=== PATIENT | female | born 1950 | race Caucasian/White ===

== ENCOUNTER 2022-11-30 11:04 | Outpatient (OUT) | payer MEDICARE, MEDICAID, SELFPAY ==
[2022-11-30 11:41] LABS: Bilirubin Urine NEGATIVE (NEGATIVE); Blood Urine MODERATE (NEGATIVE); Clarity Urine SLIGHTLY CLOUDY (CLEAR); Color Urine LT. YELLOW (YELLOW); Glucose Urine UA NEGATIVE (NEGATIVE); Ketones Urine NEGATIVE (NEGATIVE); Leukocyte Esterase Urine NEGATIVE (NEGATIVE); Nitrite Urine NEGATIVE (NEGATIVE); Protein Urine >=300 mg/dL (NEG/TRACE); Specific Gravity Urine 1.025 (1.005-1.025); Urobilinogen Urine 0.2 EU/dL (0.2-1.0)
[2022-11-30 12:16] LABS: Creatinine Urine Random 110.14 mg/dL (20.00-300.00); Protein Creatinine Ratio Urine 1.64; Total Protein Urine Random 180.1 mg/dL (<=11.9)
[2022-11-30 12:19] LABS: Anion Gap 12.2; BUN Creatinine Ratio 12.6; Calcium 9.2 mg/dL (8.5-10.1); Carbon Dioxide 28.7 mmol/L (21.0-32.0); Chloride 103 mmol/L (98-107); Estimated GFR (African America 31 (>=60); Estimated GFR (Non-African Ame 26 (>=60); Glucose 82 mg/dL (74-106); Potassium 4.9 mmol/L (3.5-5.1); Sodium 139 mmol/L (136-145)
== END 2022-11-30 11:05 ==
LOC: LAB 11:13
DX: N18.32 Chronic kidney disease, stage 3b (principal)
CPT/HCPCS: 36415; 80069; 81003; 82570; 84156

== ENCOUNTER 2022-12-13 15:05 | Outpatient (OUT) | payer MEDICARE, MEDICAID, SELFPAY ==
[2022-12-13 15:37] LABS: Albumin Level 3.2 g/dL (3.4-5.0); Anion Gap 9.9; Calcium 8.8 mg/dL (8.5-10.1); Carbon Dioxide 28.9 mmol/L (21.0-32.0); Chloride 102 mmol/L (98-107); Estimated GFR (African America 30 (>=60); Estimated GFR (Non-African Ame 25 (>=60); Phosphorus 3.7 mg/dL (2.6-4.7); Potassium 4.8 mmol/L (3.5-5.1); Sodium 136 mmol/L (136-145)
== END 2022-12-13 15:06 | disposition home or self-care (01) ==
LOC: LAB 15:05
DX: I12.9 Hypertensive chronic kidney disease with stage 1 through stage 4 chronic kidney disease, or unspecified chronic kidney disease (principal); N18.32 Chronic kidney disease, stage 3b
CPT/HCPCS: 36415; 80051; 82042; 82310; 82565; 84100; 84520

== ENCOUNTER 2023-03-21 14:45 | Outpatient (OUT) | payer MEDICARE, MEDICAID, SELFPAY ==
[2023-03-21 15:10] LABS: Creatinine Urine Random 30.49 mg/dL (20.00-300.00); Protein Creatinine Ratio Urine 1.88; Total Protein Urine Random 57.3 mg/dL (<=11.9)
[2023-03-21 15:13] LABS: Bilirubin Urine NEGATIVE (NEGATIVE); Blood Urine SMALL (NEGATIVE); Clarity Urine CLEAR (CLEAR); Color Urine LT. YELLOW (YELLOW); Glucose Urine UA NEGATIVE (NEGATIVE); Ketones Urine NEGATIVE (NEGATIVE); Leukocyte Esterase Urine NEGATIVE (NEGATIVE); Nitrite Urine NEGATIVE (NEGATIVE); Protein Urine 30 mg/dL (NEG/TRACE); Urobilinogen Urine 0.2 EU/dL (0.2-1.0)
[2023-03-21 15:48] LABS: Albumin Level 3.1 g/dL (3.4-5.0); Anion Gap 9.3; BUN Creatinine Ratio 13.4; Calcium 8.5 mg/dL (8.5-10.1); Carbon Dioxide 27.2 mmol/L (21.0-32.0); Chloride 101 mmol/L (98-107); Estimated GFR (African America 35 (>=60); Estimated GFR (Non-African Ame 29 (>=60); Glucose 106 mg/dL (74-106); Phosphorus 4.6 mg/dL (2.6-4.7); Potassium 5.5 mmol/L (3.5-5.1); Sodium 132 mmol/L (136-145)
== END 2023-03-21 14:46 | disposition home or self-care (01) ==
LOC: LAB 14:45
DX: I12.9 Hypertensive chronic kidney disease with stage 1 through stage 4 chronic kidney disease, or unspecified chronic kidney disease (principal); N18.32 Chronic kidney disease, stage 3b
CPT/HCPCS: 36415; 80069; 81003; 82570; 84156

== ENCOUNTER 2023-06-07 11:43 | Outpatient (OUT) | payer MEDICARE, MEDICAID, SELFPAY ==
[2023-06-07 12:47] LABS: Albumin Level 3.1 g/dL (3.4-5.0); Anion Gap 10.1; BUN Creatinine Ratio 17.5; Calcium 9.4 mg/dL (8.5-10.1); Carbon Dioxide 27.6 mmol/L (21.0-32.0); Chloride 106 mmol/L (98-107); Estimated GFR (African America 35 (>=60); Estimated GFR (Non-African Ame 29 (>=60); Glucose 101 mg/dL (74-106); Magnesium 1.9 mg/dL (1.8-2.4); Phosphorus 3.6 mg/dL (2.6-4.7); Potassium 4.7 mmol/L (3.5-5.1); Sodium 139 mmol/L (136-145)
== END 2023-06-07 11:44 | disposition home or self-care (01) ==
LOC: LAB 11:43
DX: I12.9 Hypertensive chronic kidney disease with stage 1 through stage 4 chronic kidney disease, or unspecified chronic kidney disease (principal)
CPT/HCPCS: 36415; 80069; 83735

== ENCOUNTER 2023-10-18 15:00 | Outpatient (OUT) | payer MEDICARE, MEDICAID, SELFPAY ==
[2023-10-18 15:41] LABS: Creatinine Urine Random 16.28 mg/dL (20.00-300.00); Protein Creatinine Ratio Urine 3.56; Sodium Urine Random 42 mmol/L (30-90); Total Protein Urine Random 57.9 mg/dL (<=11.9)
[2023-10-18 15:43] LABS: Albumin Level 3.1 g/dL (3.4-5.0); Anion Gap 12.1; BUN Creatinine Ratio 14.7; Calcium 8.8 mg/dL (8.5-10.1); Carbon Dioxide 27.9 mmol/L (21.0-32.0); Chloride 102 mmol/L (98-107); Estimated GFR (African America 32 (>=60); Estimated GFR (Non-African Ame 27 (>=60); Glucose 116 mg/dL (74-106); Magnesium 1.9 mg/dL (1.8-2.4); Phosphorus 4.6 mg/dL (2.6-4.7); Sodium 137 mmol/L (136-145)
== END 2023-10-18 15:01 | disposition home or self-care (01) ==
LOC: LAB 15:00
DX: I72.9 Aneurysm of unspecified site (principal)
CPT/HCPCS: 36415; 80069; 82570; 83735; 84156; 84300

== ENCOUNTER 2024-02-10 12:29 | Outpatient (OUT) | payer MEDICARE, MEDICAID, SELFPAY ==
--- OUTSIDE RECORDS SUMMARY | 2024-02-10 12:53 | XMS_ITS | CCD ---
Author Organization [facility] Inform ion Partnership [facility] Care Team Providers Care Parts Clerk Name Role Phone Jaclyn Son MD Primary Care Provider EUGENE MICHELLE Referring Unavailable JACLYN OSN Primary Care Unavailable HUY, RONER R Primary Care Unavailable EUGENE MICHELLE Referring Unavailable HUY, JACLYN R Primary Care Unavailable EUGENE MICHELLE Referring Unavailable HUY, JACLYN R Primary Care Unavailable EUGENE MICHELLE Referring Unavailable HUY, JACLYN R Primary Care Unavailable EUGENE MICHELLE Referring Unavailable EUGENE MICHELLE Referring Unavailable BROWN, CHRISTOPHER R Primary Care Unavailable HUY, CHRISTOPHER R Primary Care Unavailable EUGENE MICHELLE Referring Unavailable EUGENE MICHELLE Consulting Unavailable ISAIAS LOWRY Admitting Unavailable JACLYN SON R Primary Care Unavailable AURELIO SALDANA Attending Unavailable Jaclyn SON Primary Care Physician [phone] Darryl Soto DO Darryl Soto Attending Provider MD Tony Son Primary Care Provider [phone] MD Chance Beavers Attending Provider MD Tony Son Primary Care Provider [phone] MD Chance Beavers Attending Provider Chance Beavers Admitting Unavailable Chance Beavers Attending Unavailable Tony Son R Primary Care Unavailable Chance Beavers Admitting Unavailable Chance Beavers Attending Unavailable Tony Son R Primary Care Unavailable Huy, Tony R Primary Care Unavailable Darryl Soto Admitting Unavailable Darryl Soto Attending Unavailable Chance Beavers Admitting Unavailable Ditty, Chance J Attending Unavailable Tony Son Primary Care Unavailable Radha Porter Unavailable AKSTEVIE, CATHY Admitting Unavailable MILI ROONEYIL Attending Unavailable DR JASMIN AMEZCUA Primary Care Unavailable [facility] Consulting Unavailable CATHY ROONEY Consulting Unavailable MIS, DOCTOR Admitting Unavailable MISC, DOCTOR Attending Unavailable DR JASMIN AMEZCUA Primary Care Unavailable [facility] Consulting Unavailable Shannan Alfaro Unavailable Jaclyn SON Attending Unavailable HUY, Roner Attending Unavailable HUY, Jacobyopher Attending Unavailable HUY, Christopher Attending Unavailable HUY, Christopher Attending Unavailable HUY, Christopher Attending Unavailable HUY, Christopher Attending Unavailable HUY Christopher Admitting Unavailable Allergies Allergy Classification Reported Allergen(s) Allergy Type Date of Onset Reaction(s) Facility [facility] (3 sources) [facility]; Translations: [codeine] Drug Allergy 1 Chest pain (finding) [facility] (1 source) Codeine Drug Allergy 1 [facility] Repository Medications Current Medications Medication Drug Class(es) Dates Sig (Normalized) Sig (Original) Acetaminophen (1 source) Start: 01-08-2021 acetaminophen (TYLENOL) tablet 650 mg acetaminophen 325 mg / HYDROcodone bitartrate 5 mg oral tablet (2 sources) Opioid Agonist Start: 01-13-2021 End: 01-20-2021 take 1 tablet by mouth every six hours as needed for pain HYDROcodone-acetami nophen (NORCO) 5-325 MG per tablet Indications: Closed hip fracture, right, initial encounter (HCC) Take 1 tablet by mouth every 6 hours as needed for Pain for up to 7 days. 30 tablet 0 01/13/2021 01/20/2021 Active Start: 01-10-2021 HYDROcodone-ac etaminophen (NORCO) 5-325 MG per tablet 1 tablet acetaminophen 325 mg / oxyCODONE hydrochloride 5 mg oral tablet (1 source) Opioid Agonist Start: 01-09-2021 oxyCODONE-acetaminophen (PERCOCET) 5-325 MG per tablet 1 tablet [id number] 200 actuat albuterol 0.09 mg/actuat metered dose inhaler (14 sources) beta2-Adrene rgic Agonist Start: 02-17-2021 take 2 puff(s) by inhalation every six hours for wheezing Pro-Air HFA CFC free 90 mcg/inh MDI 2 puff(s), Inhalation, q6hr for wheezing, 8.5 gram, Refill(s) 1, [facility], 152, cm, 02/17/21 15:40:00 EDT, Height/Length Dosing, 43.8, kg, 02/17/21 15:40:00 EDT, Weight Dosing Start Date: 02/17/21 Status: Ordered aluminum hydroxide 40 mg/ml / magnesium hydroxide 40 mg/ml / simethicone 4 mg/ml oral suspension (7 sources) Start: 01-14-2021 take 30 mL by mouth every six hours as needed aluminum & magnesium hydroxide-simethicone (MAALOX) 200-200-20 MG/5ML SUSP suspension Take 30 mLs by mouth every 6 hours as needed for Indigestion 1 Bottle 0 01/14/2021 Active Start: 01-10-2021 aluminum & mag nesium hydroxide-simethicone (MAALOX) 200-200-20 MG/5ML suspension 30 mL amoxicillin 500 mg oral capsule (3 sources) Penicillin-class Antibacterial Start: 10-22-2022 take 1 capsule by mouth every eight hours Amoxicillin 500 MG 1 capsule Orally three times a day for 10 day(s) October, Active Start: 06-01-2022 take 1 tablet by alejandra every twelve hours Amoxicillin 875 MG 1 tablet Orally every 12 hrs for 7 days May, Active amoxicillin 875 mg / clavulanate 125 mg oral tablet (1 source) Penicillin-class Antibacterial Start: 02-25-2023 take 1 tablet by mouth every twelve hours Amoxicillin-Pot Clavulanate 875-125 MG 1 tablet Orally every 12 hrs for 10 day(s) Feb, Active Anoro Ellipta 62.5 mcg-25 mcg inhalation powder (16 sources) Start: 02-21-2023 Anoro Ellipta 62.5 mcg-25 mcg inhalation powder 1 inh, Inhalation, Daily, 1 EA, Refill(s) 12, [facility], 154, cm, 08/15/23 13:10:00 EDT, Height/Length Dosing, 39.9, kg, 01/25/23 13:10:00 EDT, Weight Dosing Start Date: 02/21/23 Status: Ordered Start: 04-13-2022 Anoro Ellipta 62.5 mcg-25 mcg inhalation powder 1 inh, Inhalation, Daily, 1 EA, Refill(s) 12, [facility], 154.9, cm, 01/21/22 13:26:00 EDT, Height/Length Dosing, 42.5, kg, 01/21/22 13:26:00 EDT, Weight Dosing Start Date: 04/13/22 Status: Ordered Start: 01-21-2022 Anoro Ellipta 62.5 mcg-25 mcg inhalation powder 1 inh, Inhalation, Daily, 1 EA, Refill(s) 12, other reason (Rx) Start Date: 01/21/22 Status: Ordered Start: 05-08-2021 End: 11-04-2021 Anoro Ellipta 62.5 mcg-25 mc g inhalation powder 1 inh, Inhalation, Daily for 30 day(s), 30 blister(s), Refill(s) 5, [facility] #[facility], 154.9, cm, 05/04/21 12:55:00 EST, Height/Length Dosing, 42.8, kg, 05/04/21 12:55:00 EST, Weight Dosing Start Date: 05/08/21 Stop Date: 11/04/21 Status: Ordered Anoro Ellipta 62.5-25 MCG/INH (3 sources) take 1 puff(s) by inhalation once daily Anoro Ellipta 62.5-25 MCG/INH 1 puff Inhalation Once a day Active aspirin 81 mg delayed release oral tablet (20 sources) Platelet Aggregation Inhibitor, Nonsteroidal Anti-inflammatory Drug Start: 2 take 1 tablet by mouth once daily aspirin 81 mg Oral EC Tab 81 mg = 1 tab(s), Oral, Daily, # 90 tab(s), Refills(s) 3, other reason (Rx) Start Date: 01/21/22 Status: Ordered Start: 01-29-2021 take 325 mg by mouth once carmelita y Aspirin Active 325 MG PO Daily October 2nd, 2022 11:00pm atorvastatin 20 mg oral tablet (6 sources) HMG-CoA Reductase Inhibitor Start: 06-03-2020 take 1 tablet by mouth once daily atorvastatin (LIPITOR) 20 MG tablet Take 20 mg by mouth nightly 0 06/03/2020 Active 60 actuat budesonide 0.16 mg/actuat / formoterol fumarate 0.0045 mg/actuat metered dose inhaler (7 sources) Corticosteroid, beta2-Adrenergic Agonist Start: 01-14-2021 take 2 puff(s) by inhalation twice daily budesonide-formote rol (SYMBICORT) 160-4.5 MCG/ACT AERO Inhale 2 puffs into the lungs 2 times daily 1 Inhaler 3 01/14/2021 Active Start: 01-12-2021 budesonide-for moterol (SYMBICORT) 160-4.5 MCG/ACT inhaler 2 puff chlorhexidine gluconate 1.2 mg/ml mouthwash (1 source) Start: 06-01-2022 take 10 mL by mouth twice daily Peridex 0.12 % gargle 10 ml Mouth/Throat twice daily May, Active docusate sodium 100 mg oral capsule (7 sources) Start: 01-12-2021 take 1 capsule by mouth once daily docusate sodium (COLACE, DULCOLAX) 100 MG CAPS Take 100 mg by mouth daily 30 capsule 0 01/14/2021 Active docusate sodium 50 mg / sennosides, senior care 8.6 mg oral tablet (7 sources) Start: 01-09-2021 take 1 tablet by mouth twice daily sennosides-docusat e sodium (SENOKOT-S) 8.6-50 MG tablet Take 1 tablet by mouth 2 times daily 60 tablet 0 01/14/2021 Active 0.3 ml enoxaparin sodium 100 mg/ml prefilled syringe (7 sources) Low Molecular Weight Heparin Start: 01-10-2021 enoxaparin (LOVENOX) 30 MG/0.3ML injection Inject 0.3 mLs into the skin daily 10 mL 0 01/14/2021 Active famotidine 40 mg oral tablet (20 sources) Histamine-2 Receptor Antagonist Start: 08-02-2023 take 1 tablet by mouth once daily at bedtime famotidine 40 mg Tab 40 mg = 1 tab(s), Oral, Once a day (at bedtime), # 90 tab(s), Refills(s) 3, Pharmacy: [facility], 154, cm, 08/02/23 10:44:00 EST, Height/Length Dosing, 41.3, kg, 08/02/23 10:44:00 EST, Weight Dosing Start Date: 08/02/23 Status: Ordered Start: 07-23-2021 take 1 tablet by alejandra once daily at bedtime famotidine 40 mg Tab 40 mg = 1 tab(s), Oral, Once a day (at bedtime), # 90 tab(s), Refills(s) 1, Pharmacy: [facility], 154, cm, 08/30/22 14:11:00 EDT, Height/Length Dosing, 42.7, kg, 08/30/22 14:11:00 EDT, Weight Dosing Start Date: 09/23/22 Status: Ordered fluticasone propionate 0.05 mg/actuat metered dose nasal spray (1 source) Corticosteroid Start: 02-25-2023 take 2 spray(s) nasal route once daily Fluticasone Propionate 50 MCG/ACT 2 sprays Nasally Once a day for 14 day(s) Feb, Active 12 hr guaiFENesin 600 mg extended release oral tablet (7 sources) Start: 01-10-2021 take 1 tablet by mouth twice daily guaiFENesin (MUCINEX) 600 MG extended release tablet Take 1 tablet by mouth 2 times daily 60 tablet 0 01/14/2021 Active lactobacillus rhamnosus gg [id number] unt oral capsule (7 sources) Start: 01-14-2021 take 1 capsule by mouth once daily at breakfast lactobacillus (CULTURELLE) capsule Take 1 capsule by mouth daily (with breakfast) 30 capsule 0 01/14/2021 Active Start: 01-13-2021 lactobacillus (CULTURELLE) capsule 1 capsule levalbuterol 0.417 mg/ml inhalation solution (10 sources) beta2-Adrenergic Agonist Start: 01-14-2021 leval buterol (XOPENEX) 1.25 MG/3ML nebulizer solution Take 3 mLs by nebulization every 4 hours as needed for Wheezing 30 mL 0 01/14/2021 Active Start: 01-09-2021 End: 01-10-2021 levalbuterol (XOPENEX) nebul izer solution 1.25 mg Start: 01-09-2021 levalbuterol ( XOPENEX) 1.25 MG/3ML nebulizer solution levoFLOXacin 250 mg oral tablet (2 sources) Quinolone Antimicrobial Start: 01-14-2021 End: 01-19-2021 take 1 tablet by mouth once daily levoFLOXacin (LEVAQUIN) 250 MG tablet Take 1 tablet by mouth daily for 5 days 5 tablet 0 01/14/2021 01/19/2021 Active Start: 01-12-2021 levoFLOXacin ( LEVAQUIN) 250 MG/50ML infusion 250 mg loratadine 10 mg oral tablet (20 sources) Start: 03-12-2021 take 1 tablet by mouth once daily loratadine 10 mg Tab 10 mg = 1 tab(s), Oral, Daily, # 30 tab(s), Refills(s) 5, Pharmacy: [facility], 154.9, cm, 03/12/21 10:12:00 EDT, Height/Length Dosing, 42, kg, 03/12/21 10:12:00 EDT, Weight Dosing Start Date: 03/12/21 Status: Ordered magnesium hydroxide 80 mg/ml oral suspension (1 source) Start: 01-09-2021 take 30 mL by mouth once daily as needed for constipation 30 mL, Oral, DAILY PRN, Constipation, Starting on Tue01/09/21 at 1943 First line therapy for constipation. Post-op meclizine hydrochloride 12.5 mg oral tablet (17 sources) Antiemetic Start: 07-29-2022 meclizine 12.5 mg Tab 12.5 mg = 1 tab(s), Oral, TID, PRN for dizziness, Use upto three times daily for dizziness as needed, # 30 tab(s), Refills(s) 2, Pharmacy: [facility], 154.9, cm, 07/29/22 13:20:00 EST, Height/Length Dosing, 42.6, kg, 07/29/22 13:20:00 EST, Weight Dosing Start Date: 07/29/22 Status: Ordered Start: 03-15-2022 take 12.5 mg by mout h three times daily Meclizine Active 12.5 MG PO Three times daily March 14, 2022 11:00pm Start: 10-27-2021 meclizine 12.5 mg Tab 12.5 mg = 1 tab(s), Oral, TID, PRN for dizziness, Use upto three times daily for dizziness as needed, # 30 tab(s), Refills(s) 2, Pharmacy: [facility], 154.9, cm, 10/27/21 12:15:00 EDT, Height/Length Dosing, 41.5, kg, 10/27/21 12:15:00... Start Date: 10/27/21 Status: Ordered 2 ml metoclopramide 5 mg/ml prefilled syringe (1 source) Dopamine-2 Receptor Antagonist Start: 01-10-2021 metoclopramide (REGLAN) injection 5 mg 1 ml morphine sulfate 2 mg/ml cartridge (3 sources) Opioid Agonist Start: 01-08-2021 take 2 mg by mouth every four hours as needed for pain 2 mg, Intravenous, EVERY 4 HOURS PRN, Pain Moderate (4-6), Pain Severe (7-10), Starting on Luz Elena 01/08/21 at 2124 If oral and IV narcotics ordered, use oral first and only use IV if oral is ineffective or cannot take oral. Do Not give oral and IV within 1 hour of each other unless specifically ordered. Start: 01-08-2021 End: 01-08-2021 morphine sulfate (PF) inject ion 4 mg Start: 01-08-2021 End: 01-08-2021 morphine sulfate (PF) inject ion 4 mg Multivitamins and Minerals (16 sources) Start: 02-23-2021 take 1 tablet by mouth once daily Multivitamins and Minerals 1 tab, Oral, Daily, Refill(s) 0 Start Date: 02/23/21 Status: Ordered naproxen sodium 550 mg oral tablet (1 source) Nonsteroidal Anti-inflammatory Drug Start: 06-01-2022 take 1 tablet by mouth every twelve hours at mealtime as needed Naproxen Sodium 550 MG 1 tablet with food or milk as needed Orally every 12 hrs for 7 days May, Active ondansetron 4 mg disintegrating oral tablet (7 sources) Serotonin-3 Receptor Antagonist Start: 01-14-2021 take 1 tablet by mouth every eight hours as needed for nausea ondansetron (ZOFRAN-ODT) 4 MG disintegrating tablet Take 1 tablet by mouth every 8 hours as needed for Nausea or Vomiting 30 tablet 0 01/14/2021 Active Start: 01-08-2021 End: 01-08-2021 ondansetron (ZOFRAN) injecti on 4 mg ondansetron (ZOFRAN-ODT) disintegrating tablet 4 mg (1 source) Start: 01-09-2021 ondansetron (ZOFRAN-ODT) disintegrating tablet 4 mg pantoprazole 40 mg delayed release oral tablet (8 sources) Proton Pump Inhibitor Start: 01-15-2021 take 1 tablet by mouth once daily before breakfast pantoprazole (PROTONIX) 40 MG tablet Take 1 tablet by mouth every morning (before breakfast) 30 tablet 3 01/15/2021 Active Start: 01-15-2021 take 1 tablet by alejandra th once daily before breakfast pantoprazole (PROTONIX) 40 MG tablet Take 1 tablet by mouth every morning (before breakfast) 30 tablet 3 01/15/2021 Active Start: 01-10-2021 pantoprazole ( PROTONIX) tablet 40 mg patiromer 8400 mg powder for oral suspension (5 sources) Potassium Binder Start: 04-06-2023 Veltassa 8.4 g oral powder for reconstitution Oral, 0 Refill(s), Refills(s) 0 Start Date: 04/06/23 Status: Ordered take 1 dose by mouth once daily Veltassa 8.4 GM 1 packet dissolved in water. Take other medications at least 3 hours before or 3 hours after this medication Orally Once a day Active polyethylene glycol 3350 98933 mg powder for oral solution (4 sources) Osmotic Laxative Start: 01-08-2021 End: 02-13-2021 take 17 g by mouth once daily as needed for constipation polyethylene glycol (GLYCOLAX) 17 g packet Take 17 g by mouth daily as needed for Constipation 527 g 1 01/14/2021 02/13/2021 Active Pro-Air HFA CFC free 90 mcg/inh MDI (2 sources) Start: 02-17-2021 take 2 puff(s) by inhalation every six hours for wheezing Pro-Air HFA CFC free 90 mcg/inh MDI 2 puff(s), Inhalation, q6hr for wheezing, 8.5 gram, Refill(s) 1, [facility], 152, cm, 02/17/21 15:40:00 EDT, Height/Length Dosing, 43.8, kg, 02/17/21 15:40:00 EDT, Weight Dosing Start Date: 02/17/21 Status: Ordered promethazine hydrochloride 25 mg oral tablet (2 sources) Phenothiazine Start: 01-09-2021 promethazine (PHENERGAN) tablet 25 mg Start: 01-08-2021 End: 01-08-2021 promethazine (PHENERGAN) inj ection 12.5 mg sodium chloride 1000 mg oral tablet (20 sources) Start: 03-15-2022 take 1000 mg by mouth twice daily Sodium Chloride Active 1000 MG PO Twice daily March 14, 2022 11:00pm Start: 02-23-2021 take 1 tablet by mouth once da akhil Sodium Chloride 1 g oral tablet 1 tab, Oral, Daily, Refills(s) 0 Start Date: 02/23/21 Status: Ordered Start: 02-23-2021 take 1 tablet by mouth once da akhil Sodium Chloride 1 g oral tablet 1 tab, Oral, Daily, Refills(s) 0 Start Date: 02/23/21 Status: Ordered Start: 01-12-2021 sodium chlorid e (OCEAN, BABY AYR) 0.65 % nasal spray 2 sprays by Nasal route 4 times daily 1 Bottle 0 01/14/2021 Active Start: 01-08-2021 End: 01-12-2021 0.9 % sodium chloride infusi on Start: 01-08-2021 take 1 dose intraven ously twice daily 5-40 mL, Intravenous, EVERY 12 HOURS SCHEDULED (2 times per day), First dose on Tue01/09/21 at 2100 For Line Patency: Peripheral IV = 5 mL; Midline or Central Line = 10 mL/lumen. If following IV push medication, administer flush at same rate as the IV push. Flush volume is determined by type of infusion therapy being given. For non-viscous solutions use: Peripheral IV = 5 mL Midline or Central Line = 10 mL/lumen For viscous solutions (i.e. blood components, parenteral nutrition, contrast media, or after obtaining blood sample) use: Peripheral IV = 10 mL Midline or Central Line = 20 mL/lumen Post-op Start: 01-08-2021 take 5-40 mL intravenously onc e 5-40 mL, Intravenous, PRN, Line Care, Starting on Tue01/09/21 at 1943 After every IV line use Post-op Start: 01-08-2021 take 25 mL intraveno usly every hour as needed 25 mL, Intravenous, at 100 mL/hr, PRN, If patient receiving piggyback infusions without ordered maintenance IV fluids or with frequent/long duration piggyback infusions, Starting on Tue01/09/21 at 1943 Administer at the same rate as the piggyback being infused. Post-op sodium zirconium cyclosilicate 96421 mg powder for oral suspension (3 sources) Start: 08-02-2023 Lokelma 10 g o ral powder for reconstitution See Instructions, 10 gm every 3 days, # 30 EA, Refills(s) 5 Start Date: 08/02/23 Status: Ordered 7 actuat umeclidinium 0.0625 mg/actuat / vilanterol 0.025 mg/actuat dry powder inhaler (4 sources) Anticholinergic, beta2-Adrenergic Agonist Start: 03-15-2022 Umeclidinium-Vilante rol (Anoro Ellipta) 62.5-25 mcg/actuation blister with device Active 1 INH INHALATION Daily March 14, 2022 11:00pm take 1 puff(s) by inhalation onc e daily Anoro Ellipta 62.5-25 MCG/INH 1 puff Inhalation Once a day Active Ventolin HFA 90 mcg/inh Aerosol (6 sources) Start: 05-08-2021 take 1 puff(s) by inhalation every four hours for wheezing Ventolin HFA 90 mcg/inh Aerosol 1 puff(s), Inhalation, q4hr for wheezing, 18 gram, Refill(s) 5, [facility] #[facility], 154.9, cm, 05/04/21 12:55:00 EST, Height/Length Dosing, 42.8, kg, 05/04/21 12:55:00 EST, Weight Dosing Start Date: 05/08/21 Status: Ordered Completed/Discontinued Medications Medication Drug Class(es) Dates Sig (Normalized) Sig (Original) ceFAZolin 1000 mg injection (2 sources) Cephalosporin Antibacterial Start: 01-09-2021 End: 01-09-2021 ceFAZolin (ANCEF) injection 2,000 mg Start: 01-09-2021 End: 01-09-2021 ceFAZolin (ANCEF) 2-3 GM-%(5 0ML) IVPB (duplex) ceFAZolin (ANCEF) 1,000 mg i n dextrose 5 % 50 mL IVPB (mini-bag) (1 source) Start: 01-10-2021 End: 01-10-2021 ceFAZolin (ANCEF) 1,000 mg i n dextrose 5 % 50 mL IVPB (mini-bag) ceFAZolin (ANCEF) 1,000 mg i n sterile water 10 mL IV syringe (1 source) Start: 01-10-2021 End: 01-10-2021 1,000 mg, Intravenous, EVERY 8 HOURS, 3 doses, First dose on 01/10/21 at 0100, Last dose on 01/10/21 at 1700 Administer over 5 mins. Reconstitute 1 g vial with 2.5 mL Sterile Water. Withdraw 3.1 mL from vial and further dilute with 6.9 mL Sterile Water (final administration volume=10 mL). Post-op ferrous sulfate 325 mg oral tablet (1 source) Start: 01-13-2021 End: 01-14-2021 ferrous sulfate (IRON 325) t ablet 325 mg Problems Active Problems Problem Classification Problem Date Documented Da te Episodic/Chronic Anal and rectal conditions (1 source) Rectal polyp; Translations: [Rectal polyp] Onset: 09-18-2021 Episodic Bacterial infection; unspecified site (1 source) Other specified bacterial agents as the cause of diseases classified elsewhere Episodic Chronic kidney disease (20 sources) Chronic kidney disease stage 3B ; Translations: [Chronic kidney disease, stage 3b] Onset: 10-26-2021 Chronic Comment on above: Added per outpatient CDI policy Chronic kidney disease (1 source) Chronic kidney disease; Translations: [CHRONIC KIDNEY DISEASE STAGE 3B] Onset: 09-10-2022 Chronic obstructive pulmonary disease and bronchiectasis (20 sources) Asthma-chronic obstructive pulmonary disease overlap syndrome; Translations: [Chronic obstructive lung disease] Onset: 10-26-2021 02-17-2021 Chronic Conditions associated with dizziness or vertigo (18 sources) Benign paroxysmal positional vertigo; Translations: [Benign paroxysmal vertigo, unspecified ear] Onset: 10-27-2021 Episodic Deficiency and other anemia (20 sources) Anemia of chronic disease 04-21-2021 Chronic Deficiency and other anemia (3 sources) Anemia; Translations: [Anemia in other chronic diseases classified elsewhere] Onset: 08-28-2022 Chronic Deficiency and other anemia (1 source) Anemia; Translations: [Anemia, unspecified] Episodic Disorders of lipid metabolism (7 sources) Mixed hyperlipidemia; Translations: [Mixed hyperlipidemia] Onset: 01-20-2022 05-30-2020 Chronic Disorders of teeth and jaw (1 source) Periapical abscess without sinus Episodic E Codes: Fall (1 source) Accidental fall ; Translations: [Unspecified fall, initial encounter] Episodic Essential hypertension (14 sources) Benign essential hypertension; Translations: [Essential hypertension] Onset: 10-26-2021 03-30-2020 Chronic Fluid and electrolyte disorders (20 sources) Hyponatremia; Translations: [Hypo-osmolality and or hyponatremia] Onset: 11-10-2021 02-15-2021 Episodic Fracture of neck of femur (hip) (15 sources) Closed fracture of hip; Translations: [Fracture of unspecified part of neck of right femur, initial encounter for closed fracture] Onset: 01-08-2021 Episodic Hypertension with complications and secondary hypertension (4 sources) Hypertensive chronic kidney disease with stage 1 through stage 4 chronic kidney disease, or unspecified chronic kidney disease; Translations: [HTN CKD W/STAGE 1-4 CKD/UNS CKD] Onset: 09-08-2022 Chronic Nausea and vomiting (7 sources) Nausea and vomiting; Translations: [Nausea with vomiting, unspecified] Onset: 10-26-2021 Episodic Other and unspecified benign neoplasm (8 sources) Polyp of colon; Translations: [Polyp of colon] Onset: 09-18-2021 Episodic Other and unspecified benign neoplasm (16 sources) Hyperplastic polyp of large intestine 09-18-2021 Episodic Other and unspecified benign neoplasm (16 sources) Polyp of ascending colon 09-11-2021 Episodic Other and unspecified benign neoplasm (5 sources) History of polyp of colon; Translations: [Personal history of colonic polyps] Episodic Other and unspecified benign neoplasm (1 source) Benign neoplasm of colon, unspecified; Translations: [Benign neoplasm of colon, unspecified] Onset: 03-15-2022 Episodic Other diseases of kidney and ureters (1 source) Renal impairment; Translations: [Disorder of kidney and ureter, unspecified] Episodic Other gastrointestinal disorders (20 sources) Heartburn; Translations: [Heartburn] Onset: 10-26-2021 07-23-2021 Episodic Other gastrointestinal disorders (16 sources) Hyperplastic polyp of intestine 09-18-2021 Episodic Other nutritional; endocrine; and metabolic disorders (18 sources) Body mass index less than 20; Translations: [Body mass index (BMI) 19.9 or less, adult] Onset: 01-23-2023 01-29-2021 Episodic Other screening for suspected conditions (not mental disorders or infectious disease) (3 sources) Stool DNA-based colorectal cancer screening positive; Translations: [Procedure carried out on subject] Onset: 08-02-2022 08-18-2021 Episodic Other upper respiratory disease (9 sources) Allergic rhinitis due to pollen; Translations: [Allergic rhinitis due to pollen] Onset: 08-30-2022 03-12-2021 Chronic Other upper respiratory infections (4 sources) Acute pharyngitis, unspecified; Translations: [Acute pharyngitis due to other specified organisms] Episodic Residual codes; unclassified (2 sources) Refused procedure - parent's wish; Translations: [Procedure and treatment not carried out because of patient's decision for unspecified reasons] Onset: 07-30-2023 Episodic Substance-related disorders (20 sources) Nicotine dependence; Translations: [Nicotine dependence, cigarettes, uncomplicated] Onset: 10-26-2021 05-30-2020 Chronic Unclassified (1 source) Encounter for preprocedural laboratory examination; Translations: [Encounter for preprocedural laboratory examination] Onset: 03-11-2022 Unclassified (10 sources) Mammogram declined 07-29-2022 Past or Other Problems Problem Classification Problem Date Documented Da te Episodic/Chronic Other and unspecified benign neoplasm (1 source) Polyp of colon Onset: 12-21-2021 Resolved: 12-21-2021 Episodic Unclassified (17 sources) Patient encounter status 04-01-2020 Results Test Name Value Interpretation Reference Range Facil ity Consultation Noteon 10-27-19 Consultation Note [id number]#1.00TIFF Normal [facility] Patient Correspondenceon Patient Correspondence [id number]#[id number] Normal [facility] Ambulatory Visit Summaryon 0 08-02-2023 Ambulatory Visit Summary LECNHO CANDELARIO :1950 Visit Date:08/02/2023 Ambulatory Visit Instructions Your Diagnosis Annual visit for general adult medical examination without abnormal findings COPD with asthma Chronic kidney disease, stage 3b Cigarette nicotine dependence Screening mammography declined BMI less than 19,adult Your Care Team Attending Physician - HUY LIM, Jaclyn Primary Care Physician - HUY LIM, Jaclyn This Is Your Medications List albuterol (Pro-Air HFA CFC free 90 mcg/inh MDI) aspirin (aspirin 81 mg Oral EC Tab) famotidine (famotidine 40 mg Tab) loratadine (loratadine 10 mg Tab) meclizine (meclizine 12.5 mg Tab) multivitamin with minerals (Multivitamins and Minerals) patiromer (Veltassa 8.4 g oral powder for reconstitution) sodium chloride (Sodium Chloride 1 g oral tablet) sodium zirconium cyclosilicate (Lokelma 10 g oral powder for reconstitution) umeclidinium-vilant sreekanth (Anoro Ellipta 62.5 mcg-25 mcg inhalation powder) Procedures Performed Colonoscopy (03/15/2022), Colonoscopy (09/09/2021), Cholecystectomy, Closed reduction of fracture of right femur and internal fixation using dynamic hip screw plate, Total abdominal hysterectomy. Discharge Vitals Heart Rate (Peripheral) 82 Blood Pressure 130/80 Height 154 cm Height 61 in Weight 41.3 kg Weight 90.86 lb BMI 17.41 What to do next Scheduled Follow-Up Appointments Tuesday 11:00 AM EST With: Where: [place] [id number] \.br\ Medications\.br\ What How Much When Instructions\.br \ Changed famotidine (famotidine 40 mg Tab) 1 Tablets By Mouth Once a day (at bedtime)\.br\ Unchanged albuterol (Pro-Air HFA CFC free 90 mcg/ inh MDI) 2 Puffs Inhalation Every 6 hours as needed for for wheezing\.br\ Unchanged aspirin (aspirin 81 mg Oral EC Tab) 1 Tablets By Mouth Every day\.br\ Unchanged loratadine (loratadine 10 mg Tab) 1 Tablets By Mouth Every day\.br\ Unchanged meclizine (meclizine 12.5 mg Tab) 1 Tablets By Mouth 3 times a day as needed for for dizziness Use upto three times daily for dizziness as needed \.br\ Unchanged multivitamin with minerals (Multivitamins and Minerals) 1 tab By Mouth Every day\.br\ Unchanged patiromer (Veltassa 8.4 g oral powder for reconstitution) Oral, 0 Refill(s) \.br\ Unchanged sodium chloride (Sodium Chloride 1 g oral tablet) 1 tab By Mouth Every day\.br\ Unchanged sodium zirconium cyclosilicate (Lokelma 10 g oral powder for reconstitution) See instructions 10 gm every 3 days \.br\ Unchanged umeclidinium-rigo anterol (Anoro Ellipta 62.5 mcg-25 mcg inhalation powder) 1 Inhalation Inhalation Every day\.br\ Allergies\.br\ codeine (Chest pain)\.br\ Problems\.br\ Ongoing - Any problem that you are currently receiving treatment for.\.br\ Allergic rhinitis due to pollen\.br\ Anemia of chronic disease\.br\ At risk for falls\.br\ Benign positional vertigo\.br\ BMI less than 19,adult\.br\ Chronic kidney disease, stage 3b\.br\ Cigarette nicotine dependence\.br\ COPD with asthma\.br\ Heart burn\.br\ Hyperkalemia\.br \ Hyperplastic polyp of sigmoid colon\.br\ Hyperplastic rectal polyp\.br\ Hyponatremia\.br \ Polyp of ascending colon\.br\ Screening mammography declined\.br\ Historical - Any problem that you are no longer receiving treatment for.\.br\ Encounter for lipid screening for cardiovascular disease\.br\ Patient Survey\.br\ You may receive a survey via text or e-mail asking about your office visit. Please share your experience with us by completing your survey. We appreciate your feedback and thank you for choosing us for your care.\.br\ Education Materials\.br\ Health Risks of Smoking\.br\ Smoking tobacco is very bad for your health. Tobacco smoke contains many toxic chemicals that can damage every part of your body. Secondhand smoke can be harmful to those around you. Tobacco or nicotine use can cause many long-term (chronic) diseases.\.br\ Smoking is difficult to quit because a chemical in tobacco, called nicotine, causes addiction or dependence. When you smoke and inhale, nicotine is absorbed quickly into your bloodstream through your lungs. Both inhaled and non-inhaled nicotine may be addictive.\.br\ How can quitting affect me?\.br\ There are health benefits of quitting smoking. Some benefits happen right away and others take time. Benefits may include:\.br\ ? \.br\ Blood flow, blood pressure, heart rate, and lung capacity may begin to improve. However, any lung damage that has already occurred cannot be repaired.\.br\ ? \.br\ Respiratory symptoms from smoking, such as nasal congestion and cough, may improve over time.\.br\ ? \.br\ Your risk of heart disease, stroke, and cancer is reduced.\.br\ ? \.br\ The overall quality of your health may improve.\.br\ ? \.br\ You may save money, as you will not spend money on tobacco products and may spend less money on smoking-related health issues.\.br\ What can increase my risk?\.br\ \.br\ Smoking harms nearly every organ in the body. People who smoke tobacco have a shorter life expectancy and an increased risk of many serious medical problems. These include:\.br\ ? \.br\ More respiratory infections, such as colds and pneumonia.\.br\ ? \.br\ Cancer.\.br\ ? \.br\ Heart disease.\.br\ ? \.br\ Stroke.\.br\ ? \.br\ Chronic respiratory diseases.\.br\ ? \.br\ Delayed wound healing and increased risk of complications during surgery.\.br\ ? \.br\ Problems with reproduction, , and childbirth, such as infertility, early (premature) births, stillbirths, and defects.\.br\ Secondhand smoke exposure to children increases the risk of:\.br\ ? \.br\ Sudden syndrome (SIDS).\.br\ ? \.br\ Infections in the nose, throat, or airways (respiratory infections).\.br \ ? \.br\ Chronic respiratory symptoms.\.br\ What actions can I take to quit?\.br\ \.br\ Smoking is an addiction that affects both your body and your mind, and long-time habits can be hard to change. Your health care provider can recommend:\.br\ ? \.br\ Nicotine replacement products, such as patches, gum, and nasal sprays. Use these products only as directed. Do not replace cigarette smoking with electronic cigarettes, which are commonly called e-cigarettes. The safety of e-cigarettes is not known, and some may contain harmful chemicals.\.br\ ? \.br\ Programs and community resources, which may include group support, education, or talk therapy.\.br\ ? \.br\ Prescription medicines to help reduce cravings.\.br\ ? \.br\ A combination of two or more quit methods, which may increase the success of quitting.\.br\ Where to find support\.br\ Follow the recommendations from your health care provider about support groups and other assistance. You can also visit:\.br\ ? \.br\ U.[place]. Department of Health and Human Services: www.smokefree.go v\.br\ ? \.br\ [employer]: www.freedomfroms moking.org\.br\ ? \.br\ [employer]: www.heart.org\.b r\ Where to find more information\.br\ ? \.br\ Centers for Disease Control and Prevention: www.cdc.gov\.br\ ? \.br\ World Health Organization: www.who.int\.br\ Summary\.br\ ? \.br\ Smoking tobacco is very bad for your health. Tobacco smoke contains many toxic chemicals that can damage every part of the body.\.br\ ? \.br\ Smoking is difficult to quit because a chemical in tobacco, called nicotine, causes addiction or dependence.\.br\ ? \.br\ There are immediate and long-term health benefits of quitting smoking.\.br\ ? \.br\ A combination of two or more quit methods may increase the success of quitting.\.br\ This information is not intended to replace advice given to you by your health care provider. Make sure you discuss any questions you have with your health care provider.\.br\ Document Revised: 06/01/2022 Document Reviewed: 06/01/2022 [employer] Patient Education ? 2022 [employer].br\ Chronic Kidney Disease, Adult\.br\ \.br\ Chronic kidney disease (CKD) occurs when the kidneys are slowly and permanently damaged over a long period of time. The kidneys are a pair of organs that do many important jobs in the body, including:\.br\ ? \.br\ Removing waste and extra fluid from the blood to make urine.\.br\ ? \.br\ Making hormones that maintain the amount of fluid in tissues and blood vessels.\.br\ ? \.br\ Maintaining the right amount of fluids and chemicals in the body.\.br\ A small amount of kidney damage may not cause problems, but a large amount of damage may make it hard or impossible for the kidneys to work right. Steps must be taken to slow kidney damage or to stop it from getting worse. If steps are not taken, the kidneys may stop working permanently (end-stage renal disease, or ESRD). Most of the time, CKD does not go away, but it can often be controlled. People who have CKD are usually able to live full lives.\.br\ What are the causes?\.br\ The most common causes of this condit [facility] Ambulatory Visit Summary KODAKRILEYTIM De La Cruz :1950 Visit Date:08/02/2023 Ambulatory Visit Instructions Your Diagnosis COPD with asthma Heart burn Chronic kidney disease, stage 3b Hyperkalemia Hyponatremia Anemia of chronic disease Cigarette nicotine dependence Screening mammography declined Your Care Team Attending Physician - Jaclyn SON MD Primary Care Physician - Jaclyn SON MD This Is Your Medications List famotidine (famotidine 40 mg Tab) Contact prescribing physician if questions or concerns albuterol (Pro-Air HFA CFC free 90 mcg/inh MDI) aspirin (aspirin 81 mg Oral EC Tab) loratadine (loratadine 10 mg Tab) meclizine (meclizine 12.5 mg Tab) multivitamin with minerals (Multivitamins and Minerals) patiromer (Veltassa 8.4 g oral powder for reconstitution) sodium chloride (Sodium Chloride 1 g oral tablet) sodium zirconium cyclosilicate (Lokelma 10 g oral powder for reconstitution) umeclidinium-vilant sreekanth (Anoro Ellipta 62.5 mcg-25 mcg inhalation powder) Procedures Performed Colonoscopy (03/15/2022), Colonoscopy (09/09/2021), Cholecystectomy, Closed reduction of fracture of right femur and internal fixation using dynamic hip screw plate, Total abdominal hysterectomy. Discharge Vitals Heart Rate (Peripheral) 82 Blood Pressure 130/80 Height 154 cm Height 61 in Weight 41.3 kg Weight 90.86 lb BMI 17.41 What to do next Scheduled Follow-Up Appointments Tuesday 11:00 AM EST With: Where: [place] [phone] \.br\ You Need to Schedule the Following Appointments\.br \ Follow Up with HUY LIM, LANCE Tadeo When: In 1 year\.br\ Where:\.br\ \.br\ Medications\.br\ What How Much When Instructions\.br \ Unchanged famotidine (famotidine 40 mg Tab) 1 Tablets By Mouth Once a day (at bedtime) Pickup at [facility]\.br\ Unchanged albuterol (Pro-Air HFA CFC free 90 mcg/ inh MDI) 2 Puffs Inhalation Every 6 hours as needed for for wheezing Contact prescribing physician if questions or concerns \.br\ Unchanged aspirin (aspirin 81 mg Oral EC Tab) 1 Tablets By Mouth Every day Contact prescribing physician if questions or concerns \.br\ Unchanged loratadine (loratadine 10 mg Tab) 1 Tablets By Mouth Every day Contact prescribing physician if questions or concerns \.br\ Unchanged meclizine (meclizine 12.5 mg Tab) 1 Tablets By Mouth 3 times a day as needed for for dizziness Use upto three times daily for dizziness as needed Contact prescribing physician if questions or concerns \.br\ Unchanged multivitamin with minerals (Multivitamins and Minerals) 1 tab By Mouth Every day Contact prescribing physician if questions or concerns \.br\ Unchanged patiromer (Veltassa 8.4 g oral powder for reconstitution) Oral, 0 Refill(s) Contact prescribing physician if questions or concerns \.br\ Unchanged sodium chloride (Sodium Chloride 1 g oral tablet) 1 tab By Mouth Every day Contact prescribing physician if questions or concerns \.br\ Unchanged sodium zirconium cyclosilicate (Lokelma 10 g oral powder for reconstitution) See instructions 10 gm every 3 days Contact prescribing physician if questions or concerns \.br\ Unchanged umeclidinium-rigo anterol (Anoro Ellipta 62.5 mcg-25 mcg inhalation powder) 1 Inhalation Inhalation Every day Contact prescribing physician if questions or concerns \.br\ Pharmacy Information\.br\ [facility]: [address] [place], [place] [id number] [phone]\.br\ Allergies\.br\ codeine (Chest pain)\.br\ Problems\.br\ Ongoing - Any problem that you are currently receiving treatment for.\.br\ Allergic rhinitis due to pollen\.br\ Anemia of chronic disease\.br\ At risk for falls\.br\ Benign positional vertigo\.br\ BMI less than 19,adult\.br\ Chronic kidney disease, stage 3b\.br\ Cigarette nicotine dependence\.br\ COPD with asthma\.br\ Heart burn\.br\ Hyperkalemia\.br \ Hyperplastic polyp of sigmoid colon\.br\ Hyperplastic rectal polyp\.br\ Hyponatremia\.br \ Polyp of ascending colon\.br\ Screening mammography declined\.br\ Historical - Any problem that you are no longer receiving treatment for.\.br\ Encounter for lipid screening for cardiovascular disease\.br\ Patient Survey\.br\ You may receive a survey via text or e-mail asking about your office visit. Please share your experience with us by completing your survey. We appreciate your feedback and thank you for choosing us for your care.\.br\ Education Materials\.br\ Chronic Obstructive Pulmonary Disease\.br\ \.br\ Chronic obstructive pulmonary disease (COPD) is a long-term (chronic) condition that affects the lungs. COPD is a general term that can be used to describe many different lung problems that cause lung inflammation and limit airflow, including chronic bronchitis and emphysema.\.br\ If you have COPD, your lung function will probably never return to normal. In most cases, it gets worse over time. However, there are steps you can take to slow the progression of the disease and improve your quality of life.\.br\ What are the causes?\.br\ This condition may be caused by:\.br\ ? \.br\ Smoking. This is the most common cause.\.br\ ? \.br\ Certain genes passed down through families.\.br\ What increases the risk?\.br\ The following factors may make you more likely to develop this condition:\.br\ ? \.br\ Being exposed to secondhand smoke from cigarettes, pipes, or cigars.\.br\ ? \.br\ Being exposed to chemicals and other irritants, such as fumes and dust in the work environment.\.br \ ? \.br\ Having chronic lung conditions or infections.\.br\ What are the signs or symptoms?\.br\ Symptoms of this condition include:\.br\ ? \.br\ Shortness of breath, especially during physical activity.\.br\ ? \.br\ Chronic cough with a large amount of thick mucus. Sometimes, the cough may not have any mucus (dry cough).\.br\ ? \.br\ Wheezing and rapid breathing.\.br\ ? \.br\ Nicholas or bluish discoloration (cyanosis) of the skin, especially in the fingers, toes, or lips.\.br\ ? \.br\ Feeling tired (fatigue).\.br\ ? \.br\ Weight loss.\.br\ ? \.br\ Chest tightness.\.br\ ? \.br\ Frequent infections.\.br\ ? \.br\ Episodes when breathing symptoms become much worse (exacerbations). \.br\ At the later stages of this disease, you may have swelling in the ankles, feet, or legs.\.br\ How is this diagnosed?\.br\ This condition is diagnosed based on:\.br\ ? \.br\ Your medical history.\.br\ ? \.br\ A physical exam.\.br\ You may also have tests, including:\.br\ ? \.br\ Lung (pulmonary) function tests. This may include a spirometry test, which measures your ability to exhale properly.\.br\ ? \.br\ Chest X-ray.\.br\ ? \.br\ CT scan.\.br\ ? \.br\ Blood tests.\.br\ How is this treated?\.br\ This condition may be treated with:\.br\ ? \.br\ Medicines. These may include inhaled rescue medicines to treat acute exacerbations as well as medicines that you take long-term (maintenance medicines) to prevent flare-ups of COPD.\.br\ ? \.br\ Bronchodilators help treat COPD by dilating the airways to allow increased airflow and make your breathing more comfortable.\.br \ ? \.br\ Steroids can reduce airway inflammation and help prevent exacerbations.\. br\ ? \.br\ Smoking cessation. If you smoke, your health care provider may ask you to quit, and may also recommend therapy or replacement products to help you quit.\.br\ ? \.br\ Pulmonary rehabilitation. This may involve working with a team of health care providers and specialists, such as respiratory, occupational, and physical therapists.\.br\ ? \.br\ Exercise and physical activity. These are beneficial for nearly all people with COPD.\.br\ ? \.br\ Nutrition therapy to gain weight, if you are underweight.\.br \ ? \.br\ Oxygen. Supplemental oxygen therapy is only helpful if you have a low oxygen level in your blood (hypoxemia).\.br \ ? \.br\ Lung surgery or transplant.\.br\ ? \.br\ Palliative care. This is to help people with COPD feel comfortable when treatment is no longer working.\.br\ Follow these instructions at home:\.br\ Medicines\.br\ ? \.br\ Take nnfb-unq-dgrimzp and prescription medicines only as told by your health care provider. This includes inhaled medicines and pills.\.br\ ? \.br\ Talk to your health care provider before taking any cough or allergy medicines. You may need to avoid certain medicines that dry out your airways.\.br\ Lifestyle\.br\ ? \.br\ If you smoke, the most important thing that you can do is to stop smoking. Continuing to smoke will cause the disease to progress faster.\.br\ ? \.br\ Do not use any products that contain nicotine or tobacco. These products include cigarettes, chewing tobacco, and vaping devices, such as e-cigarettes. If you need help quitting, ask your health care provider.\.br\ ? \.br\ Avoid exposure to things that irritate your lungs, such as smoke, chemicals, and fumes.\.br\ [facility] CBC w/ Auto Diffon 4 Basophil Absolute 0.0 E9/L Normal 0.0-0.2 [facility] Comment on above: Performed By: #### 2 [id number], [id number], [id number] ####[address] [address] Basophils/100 WBC (Bld) 0.4 % Normal 0.0-2.0 [facility] Comment on above: Performed By: #### 2 297441, 8599855, [id number] ####[address] [address] Eos Absolute 0.1 E9/L Normal 0.0-0.5 [facility] Comment on above: Performed By: #### 2 912411, 8087689, [id number] ####[address] [address] Eosinophils/100 WBC (Bld) 1.1 % Normal 0.0-8.0 [facility] Comment on above: Performed By: #### 2 077028, 3664648, [id number] ####[address] [address] Erythrocyte distribution width (RBC) [Ratio] 14.9 % High 10.9-14.2 [facility] Comment on above: Performed By: #### 2 408335, 2407706, [id number] ####[address] [address] Hematocrit (Bld) [Volume fraction] 33.0 % Low 34.0-46.0 [facility] Comment on above: Performed By: #### 2 803933, 7355573, [id number] ####[address] [address] Hemoglobin (Bld) [Mass/Vol] 10.3 g/dL Low 12.0-16.0 [facility] Comment on above: Performed By: #### 2 795436, 8247782, [id number] ####[facility] [address] [place] [address] Lymph Absolute 2.0 E9/L Normal 1.0-4.0 [facility] Comment on above: Performed By: #### 2 409924, 9986972, [id number] ####[address] [address] Lymphocytes/100 WBC (Bld) 32.3 % Normal 14.0-50.0 [facility] Comment on above: Performed By: #### 2 189774, 1675901, [id number] ####[address] [address] MCH (RBC) [Entitic mass] 26.2 pg Low 27.0-34.0 [facility] Comment on above: Performed By: #### 2 475609, 4193574, [id number] ####[address] [address] MCHC (RBC) [Mass/Vol] 31.2 g/dL Low 31.4-36.0 [facility] Comment on above: Performed By: #### 2 222487, 6896082, [id number] ####[address] [address] MCV (RBC) [Entitic vol] 83.9 fL Normal 80.0-100.0 [facility] Comment on above: Performed By: #### 2 991615, 7811890, [id number] ####[address] [address] [place] Absolute 0.5 E9/L Normal 0.2-1.0 [facility] Comment on above: Performed By: #### 2 646928, 8656899, [id number] ####[address] [place] [address] Monocytes/100 WBC (Bld) 8.3 % Normal 4.0-14.0 [facility] Comment on above: Performed By: #### 2 072162, 1112117, [id number] ####[facility] [address] [place] [address] Neutro Absolute 3.6 E9/L Normal 2.0-7.5 [facility] Comment on above: Performed By: #### 2 505991, 1597764, [id number] ####[address] [address] Neutro Auto 57.9 % Normal 36.0-75.0 [facility] Comment on above: Performed By: #### 2 973457, 1751372, [id number] ####[address] [address] Platelet 174.0 E9/L Normal 150.0-500.0 [facility] Comment on above: Performed By: #### 2 492309, 7929746, [id number] ####[address] [address] Platelet mean volume (Bld) [Entitic vol] 9.4 fL Normal 6.4-10.8 [facility] Comment on above: Performed By: #### 2 721930, 9315501, 89091534 ####[address] [address] RBC 3.9 E12/L Low 4.3-5.9 [facility] Comment on above: Performed By: #### 2 023539, 6340826, 56600475 ####[place] [address] [place] [address] WBC 6.2 E9/L Normal 4.0-11.0 [facility] Comment on above: Performed By: #### 2 033696, 9251871, 37457860 ####[address] [address] CHEMISTRYOrdered By: SYSTEM SYSTEM on 08-02-2023 Albumin [Mass/Vol] 3.7 g/dL Normal 3.3 - 5.0 gm/dL R emisol Chem Albumin/Globulin [Mass ratio] 1.2 {ratio} Normal 1.1 - 2.2 Remisol Chem Alk Phos 74 [iU]/d Normal 21 - 98 Int._Unit/L Remisol Chem ALT 9 [iU]/d Normal 6 - 46 Int._Unit/L Remisol Chem Anion gap [Moles/Vol] 9 mmol/L Normal 6 - 16 mEq/L R emisol Chem AST 16 [iU]/d Normal 5 - 43 Int._Unit/L Remisol Chem Bili Total 0.2 mg/dL Normal 0.0 - 1.1 mg/dL Remisol C hem Calcium [Mass/Vol] 9.4 mg/dL Normal 8.9 - 11.1 mg/dL Remisol Chem Chloride [Moles/Vol] 108 mmol/L Normal 101 - 111 mmol/ L Remisol Chem CO2 [Moles/Vol] 28 mmol/L Normal 21 - 31 mmol/L Remis ol Chem Creatinine [Mass/Vol] 1.9 mg/dL High 0.5 - 1.3 mg/d L Remisol Chem eGFR 27 mL/min/1.73 m2 Low >=59mL/min /1.73 m2 Remisol Chem Globulin (S) [Mass/Vol] 3.0 g/dL Normal 1.4 - 4.0 gm/dL Remisol Chem Glucose [Mass/Vol] 96 mg/dL Normal 55 - 199 mg/dL Re misol Chem Potassium [Moles/Vol] 5.1 mmol/L Normal 3.5 - 5.3 mmol /L Remisol Chem Protein [Mass/Vol] 6.7 g/dL Normal 6.0 - 7.8 gm/dL R emisol Chem Sodium [Moles/Vol] 140 mmol/L Normal 135 - 145 mmol/L Remisol Chem Urea nitrogen [Mass/Vol] 27 mg/dL High 5 - 21 mg/dL Remisol Chem Urea nitrogen/Creatinine [Mass ratio] 14 mg/mg Normal 10 - 20 Remisol Chem CMPon 08-02-2023 Albumin [Mass/Vol] 3.7 g/dL Normal 3.3-5.0 [facility] Comment on above: Performed By: #### 2 917404, 2345789, [id number] ####[place] [address] [place] [address] Albumin/Globulin [Mass ratio] 1.2 {ratio} Normal 1.1-2.2 [facility] Comment on above: Performed By: #### 2 138950, 7071774, 88983572 ####[address] [address] Alk Phos 74 Int._Unit/L Normal 21-98 [facility] Comment on above: Performed By: #### 2 943920, 5369370, [id number] ####[address] [address] ALT 9 Int._Unit/L Normal 6-46 [facility] Comment on above: Performed By: #### 2 975289, 1942772, [id number] ####[address] [address] Anion gap [Moles/Vol] 9 mmol/L Normal 6-16 [facility] Comment on above: Performed By: #### 2 275014, 3208442, [id number] ####[address] [address] AST 16 Int._Unit/L Normal 5-43 [facility] Comment on above: Performed By: #### 2 715971, 5571485, [id number] ####[place] [address] [place] [address] Bili Total 0.2 mg/dL Normal 0.0-1.1 [facility] Comment on above: Performed By: #### 2 803614, 1611215, [id number] ####[facility] [address] [place] [address] BUN/Creat Ratio 14 No Units Normal 10-20 [facility] Comment on above: Performed By: #### 2 413527, 2184133, [id number] ####[facility] [address] [place], [place] [address] Calcium [Mass/Vol] 9.4 mg/dL Normal 8.9-11.1 [facility] Comment on above: Performed By: #### 2 [id number], [id number] ####[facility] [address] [place] [address] Chloride [Moles/Vol] 108 mmol/L Normal 101-111 [facility] Comment on above: Performed By: #### 2 [id number], [id number] ####[facility] [address] [place] [address] CO2 [Moles/Vol] 28 mmol/L Normal 21-31 [facility] Comment on above: Performed By: #### 2 [id number], [id number], [id number] ####[facility] [address] [place] [address] Creatinine [Mass/Vol] 1.9 mg/dL High 0.5-1.3 [facility] Comment on above: Performed By: #### 2 [id number], [id number], [id number] ####[facility] [address] [place] [address] Globulin (S) [Mass/Vol] 3.0 g/dL Normal 1.4-4.0 [facility] Comment on above: Performed By: #### 2 [id number], [id number], [id number] ####[facility] [address] [place] [address] Glucose [Mass/Vol] 96 mg/dL Normal 55-199 [facility] Comment on above: Performed By: #### 2 [id number], [id number], [id number] ####[facility] [address] [place] [address] Potassium [Moles/Vol] 5.1 mmol/L Normal 3.5-5.3 [facility] Comment on above: Performed By: #### 2 [id number], [id number], [id number] ####[facility] [address] [place] [address] Protein [Mass/Vol] 6.7 g/dL Normal 6.0-7.8 [facility] Comment on above: Performed By: #### 2 [id number], [id number], [id number] ####[facility] [address] [place] [address] Sodium [Moles/Vol] 140 mmol/L Normal 135-145 [facility] Comment on above: Performed By: #### 2 [id number], [id number], [id number] ####[facility] [address] [place] [address] Urea nitrogen [Mass/Vol] 27 mg/dL High 5-21 [facility] Comment on above: Performed By: #### 2 [id number], [id number], [id number] ####[facility] [address] [place] [address] Family Medicine Office/Clini c Noteon 08-02-2023 Family Medicine Office/Clinic Note Chief Complaint 6 mo. f/u History of Present Illness This is a 72-year-old female who presents with her daughter for routine health maintenance checkup. She is going to get her Medicare exam with [place] this morning. She is eating okay. Her heartburn has been quiet lately. She denies any trouble with swallowing or choking. She needs a refill on her famotidine. She does not get dizzy very often. Yesterday, when she was dusting, when she looked up to clean the pictures, she got a little dizzy. She stays cold all the time. She does not take a B12 supplement. She does not take multivitamins. She takes Lokelma every 3 days to keep her potassium down. She sees Dr. Sosa every 4 months. She is fasting today. She does not wish to get a mammogram. It has been years since she had a mammogram. She denies feeling any lumps or bumps in her breasts. Also defers bone density testing. She is due for completing her shingles vaccine will do so at the pharmacy. She has not had any major respiratory events. She uses Anoro every day. She denies any irritation in the mouth. She has had problems with sinus issues. Her mucus is mostly clear. Around 5:00 PM, her nose starts running like a faucet and then she starts to cough. She has changed her filters. She takes Sudafed, which helps. Review of Systems PHQ Score Initial Depression Screen Score: 0 SCORE See HPI otherwise negative Physical Exam Vitals & Measurements HR: 82(Peripheral) BP: 130/80 SpO2: 98% HT: 61 in HT: 154 cm WT: 41.3 kg WT: 90.86 lb BMI: 17.41 The patient is adequately good, reasonably hydrated. Tobacco smoke is present, accompanied by her adult daughter. Normocephalic, atraumatic. Conjunctiva clear. Pupils are symmetric. Relatively poor, minimal afognak dentition, some broken teeth. Nontender. Nares with boggy turbinates, clear rhinorrhea. Supple. No appreciated JVD, bruits, or thyromegaly. Auscultation of the lungs diminished, but no wheeze or rhonchi. Regular rate and rhythm. No murmur, gallop, or rub. Soft, flat. Hyperactive bowel sounds. Nontender. No organomegaly. She is petite frame. Somewhat stooped posture. Skin is pale. Adequate turgor. No visible bruising, but does have nicotine staining on the fingers. Cooperative, a little bit anxious, but reasonable insight. Assessment/Plan 1. 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 She is very compliant with her Anoro inhaler. Encouraged her to always monitor carefully for any acute exacerbation COPD/asthma avoiding respiratory irritants and continue working diligently on smoking cessation did recommend a trial of nasal saline rinse supplied her with a sample. Ordered: Lab Specimen Collect [id number] Lab Specimen Collect [id number] 2. Heart burn (R12: Heartburn) Patient is continuing with H2 elzbieta primarily due to renal insufficiency she avoids PPI. Very important to maintain dietary compliance and always remain vigilant for dysphagia Ordered: Lab Specimen Collect [id number] Lab Specimen Collect [id number] 3. Chronic kidney disease, stage 3b (N18.32: Chronic kidney disease, stage 3b) Following chronically with nephrology. Understands that any anti-inflammatory use must be done still with caution maintaining good fluid hydration daily with water. Ordered: Lab Specimen Collect 11231 Lab Specimen Collect [id number] 4. Hyperkalemia (E87.5: Hyperkalemia) Patient still using Lokelma every third day. Medication list was updated. Continue following with nephrology. Avoid potassium rich foods. Believe this is secondary to problem #3 Ordered: Lab Specimen Collect 12318 Lab Specimen Collect 20548 5. Hyponatremia (E87.1: Hypo-osmolality and hyponatremia) Chronic in nature see problem #3 Ordered: Lab Specimen Collect [id number] Lab Specimen Collect [id number] 6. Anemia of chronic disease (D63.8: Anemia in other chronic diseases classified elsewhere) See problem #3. Checking CBC today. Continue to maintain iron rich foods 7. Cigarette nicotine dependence (F17.210: Nicotine dependence, cigarettes, uncomplicated) We strongly recommend to quit tobacco use. Cigarette smoking harms nearly every organ of the body, causes many diseases, and reduces the health of smokers in general. Quitting smoking lowers your risk for smoking-related diseases and can add years to your life. We encourage you to visit www.smokefree.gov access to helpful resources including free telephone support. If you decide on prescription treatment to help you quit, we would be happy to provide these. 8. Screening mammography declined (Z53.20: Procedure and treatment not carried out because of patient's decision for unspecified reasons) Recommended bone density and mammogram patient declines both. This is her prerogative. Always remain vigilant for any breast tenderness palpable masses or any falls that could indicate hip fracture Orders: famotidine, 40 mg = 1 tab(s), Oral, Once a day (at b (more content not included)... Normal [facility] Comment on above: Result Comment: Elec tronically Signed By: Jaclyn SON MD\.shannon\Date and Time Signed: 08/02/23 12:18 EST Family Medicine Office/Clinic Note Chief Complaint Medicare Wellness Visit Review of Systems PHQ Score Initial Depression Screen Score: 0 SCORE Physical Exam Vitals & Measurements HR: 82(Peripheral) BP: 130/80 SpO2: 98% HT: 154 cm HT: 61 in WT: 41.3 kg WT: 90.86 lb BMI: 17.41 Assessment/Plan I was in the office and available for consultation and to provide direct supervision at the time of this visit. I have provided supervision of the care team and have reviewed this chart and office note and agree with the plan of care. 1. Annual visit for general adult medical examination without abnormal findings (Z00.00: Encounter for general adult medical examination without abnormal findings) The patient was given a customized and personalized print out of all the current AHRQ USPSTF?s recommendations for preventative services and all current CDC recommended immunizations, relevant risk recommendations and the following patient brochures were given. Reviewed Medicare Prevention Services checklist. CDC-Falls Prevention and home safety screening reviewed. Patient denies any falls in last 12 months, voices no worry about falling. Exhibits no problems with sitting, standing or ambulation. Patient aware with keeping walk way area free of clutter to prevent tripping and/or falling. [place] Advance Directives reviewed. Documents to be completed, encouraged to bring in for scanning into chart when complete. Patient denies any problems with ADL?s and Instrumental ADL?s. Cognitive screening completed with memory and clock face drawing. No deficits noted. Immunization record reviewed, discussed Shingrix vaccine with 1st dose given. COVID vaccines have been administered, with 2 Boosters received. Allergies and medications reviewed and up to date. No concerns with taking medication as prescribed. Reviewed OTC medications, medication list up to date. Blood tests were reviewed: Discussed what tests need to be updated. Labs were ordered, will have completed prior to next PCP visit. Labs to be completed with [facility]. No concerns with bowel/ bladder. Colonoscopy last completed 03/15/22, declines referral at this time. Reviewed pain symptoms : denies pain, no pain medications taken. Reviewed all outside providers that patient follows. Last visit summary notes available in chart and/or have been requested. Patient declines any signs or symptoms of depression at this time. 8 minutes spent with screening and documentation. PHQ2 screening score 0. Patient never drinks alcohol, denies concerns. 8 minutes spent with screening and documentation. Audit score 0. Follow up scheduled with PCP, 3 month follow up. AWV has been scheduled, 08/03/24 @11am Medicare provides yearly screening for alcohol and depression concerns. This is completed during our Medicare wellness visit for those who do not have a current diagnosis of depression or concerns with alcohol use. I spent a total of 17 minutes on this date of service which included preparing to see the patient, face to face patient care, completing clinical documentation, obtaining and/or reviewing separately obtained history, counseling and educating the patient with handouts. Explanations were provided with reviewing questionnaires. AUDIT risk assessment screening completed, risk score (0) with patient denying concerns with use. Completed PHQ-2 risk assessment for depression with risk score (0), negative findings. Patient has been reminded to notify the provider if there would be a change or concerns with symptoms with fear, unable to sleep, worrying too much or feeling down and/or sad with lost of interest with daily activities. Will continue to monitor with screening yearly during Medicare wellness visits. 2. 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 States effectiveness of the inhaler. O2 sat 98%. Follows with Dr. Son. 3. Chronic kidney disease, stage 3b (N18.32: Chronic kidney disease, stage 3b) Follows up with Casting Coordinator, Dr. Rooney. Last visit completed. Office notes available in chart for PCP to review. Patient voices understanding with avoiding NSAID's. Healthy Kidney Nutritional education material reviewed and provided with patient. Goals to keep blood sugars and blood pressure under better control to reduce cardiovascular risk factors. Medications and blood work monitored with visits. 4. Cigarette nicotine dependence (F17.210: Nicotine dependence, cigarettes, uncomplicated) We strongly recommend to quit tobacco use. Cigarette smoking harms nearly every organ of the body, causes many diseases, and reduces the health of smokers in general. Quitting smoking lowers your risk for smoking-related diseases and can add years to your life. We encourage you to visit www.smokefree.gov access to helpful resources including free telephone support. If you decide on prescription treatment to help you quit, we would be happy to provide these. 8 minutes with face to face discussion compl (more content not included)... Normal [facility] Comment on above: Result Comment: Elec tronically Signed By: Jaclyn SON MD\.br\Date and Time Signed: 08/02/23 12:11 EST\.br\Electronically Co-Signed By: [place] Jama\.br\Date and Time Co-Signed: 08/02/23 12:10 EST HEMATOLOGYOrdered By: SYSTEM SYSTEM on 08-02-2023 Basophil Absolute 0.0 E9/L Normal 0.0 - 0.2 E9/L Rem isol Heme Basophils/100 WBC (Bld) 0.4 % Normal 0.0 - 2.0 % Remisol Heme Eos Absolute 0.1 E9/L Normal 0.0 - 0.5 E9/L Remisol Heme Eosinophils/100 WBC (Bld) 1.1 % Normal 0.0 - 8.0 % Remisol Heme Erythrocyte distribution width (RBC) [Ratio] 14.9 % High 10.9 - 14.2 % Remisol Heme Hematocrit (Bld) [Volume fraction] 33.0 % Low 34.0 - 46.0 % Remisol Heme Hemoglobin (Bld) [Mass/Vol] 10.3 g/dL Low 12.0 - 16.0 gm/dL Remisol Heme Lymph Absolute 2.0 E9/L Normal 1.0 - 4.0 E9/L Remiso l Heme Lymphocytes/100 WBC (Bld) 32.3 % Normal 14.0 - 50.0 % Remisol Heme MCH (RBC) [Entitic mass] 26.2 pg Low 27.0 - 34.0 pg Remisol Heme MCHC (RBC) [Mass/Vol] 31.2 g/dL Low 31.4 - 36.0 gm/dL Remisol Heme MCV (RBC) [Entitic vol] 83.9 fL Normal 80.0 - 100.0 fL Remisol Heme [place] Absolute 0.5 E9/L Normal 0.2 - 1.0 E9/L Remisol Heme Monocytes/100 WBC (Bld) 8.3 % Normal 4.0 - 14.0 % Remisol Heme Neutro Absolute 3.6 E9/L Normal 2.0 - 7.5 E9/L Remis ol Heme Neutro Auto 57.9 % Normal 36.0 - 75.0 % Remisol He me Platelet 174.0 E9/L Normal 150.0 - 500.0 E9/L Remisol Heme Platelet mean volume (Bld) [Entitic vol] 9.4 fL Normal 6.4 - 10.8 fL Remisol Heme RBC 3.9 E12/L Low 4.3 - 5.9 E12/L Remisol H sixto WBC 6.2 E9/L Normal 4.0 - 11.0 E9/L Remisol H sixto Patient Educationon 08-02-19 Patient Education Nephrology Chronic Kidney Disease, Adult Chronic kidney disease (CKD) occurs when the kidneys are slowly and permanently damaged over a long period of time. The kidneys are a pair of organs that do many important jobs in the body, including: ? Removing waste and extra fluid from the blood to make urine. ? Making hormones that maintain the amount of fluid in tissues and blood vessels. ? Maintaining the right amount of fluids and chemicals in the body. A small amount of kidney damage may not cause problems, but a large amount of damage may make it hard or impossible for the kidneys to work right. Steps must be taken to slow kidney damage or to stop it from getting worse. If steps are not taken, the kidneys may stop working permanently (end-stage renal disease, or ESRD). Most of the time, CKD does not go away, but it can often be controlled. People who have CKD are usually able to live full lives. What are the causes? The most common causes of this condition are diabetes and high blood pressure (hypertension). Other causes include: ? Cardiovascular diseases. These affect the heart and blood vessels. ? Kidney diseases. These include: ? Glomerulonephritis, or inflammation of the tiny filters in the kidneys. ? Interstitial nephritis. This is swelling of the small tubes of the kidneys and of the surrounding structures. ? Polycystic kidney disease, in which clusters of fluid-filled sacs form within the kidneys. ? Renal vascular disease. This includes disorders that affect the arteries and veins of the kidneys. ? Diseases that affect the body's defense system (immune system). ? A problem with urine flow. This may be caused by: ? Kidney stones. ? Cancer. ? An enlarged prostate, in males. ? A kidney infection or urinary tract infection (UTI) that keeps coming back. ? Vasculitis. This is swelling or inflammation of the blood vessels. What increases the risk? Your chances of having kidney disease increase with age. The following factors may make you more likely to develop this condition: ? A family history of kidney disease or kidney failure. Kidney failure means the kidneys can no longer work right. ? Certain genetic diseases. ? Taking medicines often that are damaging to the kidneys. ? Being around or being in contact with toxic substances. ? Obesity. ? A history of tobacco use. What are the signs or symptoms? Symptoms of this condition include: ? Feeling very tired (lethargic) and having less energy. ? Swelling, or edema, of the face, legs, ankles, or feet. ? Nausea or vomiting, or loss of appetite. ? Confusion or trouble concentrating. ? Muscle twitches and cramps, especially in the legs. ? Dry, itchy skin. ? A metallic taste in the mouth. ? Producing less urine, or producing more urine (especially at night). ? Shortness of breath. ? Trouble sleeping. CKD may also result in not having enough red blood cells or hemoglobin in the blood (anemia) or having weak bones (bone disease). Symptoms develop slowly and may not be obvious until the kidney damage becomes severe. It is possible to have kidney disease for years without having symptoms. How is this diagnosed? This condition may be diagnosed based on: ? Blood tests. ? Urine tests. ? Imaging tests, such as an ultrasound or a CT scan. ? A kidney biopsy. This involves removing a sample of kidney tissue to be looked at under a microscope. Results from these tests will help to determine how serious the CKD is. How is this treated? There is no cure for most cases of this condition, but treatment usually relieves symptoms and prevents or slows the worsening of the disease. Treatment may include: ? Diet changes, which may require you to avoid alcohol and foods that are high in salt, potassium, phosphorous, and protein. ? Medicines. These may: ? Lower blood pressure. ? Control blood sugar (glucose). ? Relieve anemia. ? Relieve swelling. ? Protect your bones. ? Improve the balance of salts and minerals in your blood (electrolytes). ? Dialysis, which is a type of treatment that removes toxic waste from the body. It may be needed if you have kidney failure. ? Managing any other conditions that are causing your CKD or making it worse. Follow these instructions at home: Medicines ? Take romr-cfr-jwwqnzs and prescription medicines only as told by your health care provider. The amount of some medicines that you take may need to be changed. ? Do not take any new medicines unless approved by your health care provider. Many medicines can make kidney damage worse. ? Do not take any vitamin and mineral supplements unless approved by your health care provider. Many nutritional supplements can make kidney damage worse. Lifestyle ? Do not use any products that contain nicotine or tobacco, such as cigarettes, e-cigarettes, and chewing tobacco. If you need help quitting, ask your (more content not included)... Normal [facility] Screenson 08-02-2023 Screens [id number] Normal [facility] eGFRon 08-02-2023 eGFR 27 mL/min/1.73 m2 Low >=59 [facility] Comment on above: Order Comment: Order added by Discern Expert. Performed By: #### 2 [id number], [id number], [id number] ####[facility] [address] [place] [address] Patient Educationon 07-30-19 Patient Education Pulmonary Medicine Chronic Obstructive Pulmonary Disease Chronic obstructive pulmonary disease (COPD) is a long-term (chronic) condition that affects the lungs. COPD is a general term that can be used to describe many different lung problems that cause lung inflammation and limit airflow, including chronic bronchitis and emphysema. If you have COPD, your lung function will probably never return to normal. In most cases, it gets worse over time. However, there are steps you can take to slow the progression of the disease and improve your quality of life. What are the causes? This condition may be caused by: ? Smoking. This is the most common cause. ? Certain genes passed down through families. What increases the risk? The following factors may make you more likely to develop this condition: ? Being exposed to secondhand smoke from cigarettes, pipes, or cigars. ? Being exposed to chemicals and other irritants, such as fumes and dust in the work environment. ? Having chronic lung conditions or infections. What are the signs or symptoms? Symptoms of this condition include: ? Shortness of breath, especially during physical activity. ? Chronic cough with a large amount of thick mucus. Sometimes, the cough may not have any mucus (dry cough). ? Wheezing and rapid breathing. ? Nicholas or bluish discoloration (cyanosis) of the skin, especially in the fingers, toes, or lips. ? Feeling tired (fatigue). ? Weight loss. ? Chest tightness. ? Frequent infections. ? Episodes when breathing symptoms become much worse (exacerbations). At the later stages of this disease, you may have swelling in the ankles, feet, or legs. How is this diagnosed? This condition is diagnosed based on: ? Your medical history. ? A physical exam. You may also have tests, including: ? Lung (pulmonary) function tests. This may include a spirometry test, which measures your ability to exhale properly. ? Chest X-ray. ? CT scan. ? Blood tests. How is this treated? This condition may be treated with: ? Medicines. These may include inhaled rescue medicines to treat acute exacerbations as well as medicines that you take long-term (maintenance medicines) to prevent flare-ups of COPD. ? Bronchodilators help treat COPD by dilating the airways to allow increased airflow and make your breathing more comfortable. ? Steroids can reduce airway inflammation and help prevent exacerbations. ? Smoking cessation. If you smoke, your health care provider may ask you to quit, and may also recommend therapy or replacement products to help you quit. ? Pulmonary rehabilitation. This may involve working with a team of health care providers and specialists, such as respiratory, occupational, and physical therapists. ? Exercise and physical activity. These are beneficial for nearly all people with COPD. ? Nutrition therapy to gain weight, if you are underweight. ? Oxygen. Supplemental oxygen therapy is only helpful if you have a low oxygen level in your blood (hypoxemia). ? Lung surgery or transplant. ? Palliative care. This is to help people with COPD feel comfortable when treatment is no longer working. Follow these instructions at home: Medicines ? Take izcc-xyz-nzhidjc and prescription medicines only as told by your health care provider. This includes inhaled medicines and pills. ? Talk to your health care provider before taking any cough or allergy medicines. You may need to avoid certain medicines that dry out your airways. Lifestyle ? If you smoke, the most important thing that you can do is to stop smoking. Continuing to smoke will cause the disease to progress faster. ? Do not use any products that contain nicotine or tobacco. These products include cigarettes, chewing tobacco, and vaping devices, such as e-cigarettes. If you need help quitting, ask your health care provider. ? Avoid exposure to things that irritate your lungs, such as smoke, chemicals, and fumes. ? Stay active, but balance activity with periods of rest. Exercise and physical activity will help you maintain your ability to do things you want to do. ? Learn and use relaxation techniques to manage stress and to control your breathing. ? Get the right amount of sleep and get quality sleep. Most adults need 7 or more hours per night. ? Eat healthy foods. Eating smaller, more frequent meals and resting before meals may help you maintain your strength. Controlled breathing Learn and use controlled breathing techniques as directed by your health care provider. Controlled breathing techniques include: ? Pursed lip breathing. Start by breathing in (inhaling) through your nose for 1 second. Then, purse your lips as if you were going to whistle and breathe out (exhale) through the pursed lips for 2 seconds. ? Diaphragmatic breathing. Start by putting one hand on your abdomen just above your waist. Inhale slowly through you (more content not included)... Normal [facility] Consultation Noteon 03-31-20 Consultation Note [id number] Normal [facility] Quick Strepon 02-25-2023 S. pyogenes Org specific cx Ql (Throat) Negative HipSnip Other Quick Strep HipSnip Other Ambulatory Visit Summaryon 0 01-25-2023 Ambulatory Visit Summary LENCHO CANDELARIO :1950 Visit Date:01/25/2023 Ambulatory Visit Instructions Your Diagnosis Chronic kidney disease, stage 3b Hyponatremia Hyperkalemia COPD with asthma Anemia of chronic disease Benign positional vertigo Heart burn Cigarette nicotine dependence BMI less than 19,adult Your Care Team Attending Physician - HUY LIM, Jaclyn Primary Care Physician - Jaclyn SON MD This Is Your Medications List Contact prescribing physician if questions or concerns albuterol (Pro-Air HFA CFC free 90 mcg/inh MDI) aspirin (aspirin 81 mg Oral EC Tab) famotidine (famotidine 40 mg Tab) loratadine (loratadine 10 mg Tab) meclizine (meclizine 12.5 mg Tab) multivitamin with minerals (Multivitamins and Minerals) sodium chloride (Sodium Chloride 1 g oral tablet) umeclidinium-vilant sreekanth (Anoro Ellipta 62.5 mcg-25 mcg inhalation powder) Procedures Performed Colonoscopy (03/15/2022), Colonoscopy (09/09/2021), Cholecystectomy, Closed reduction of fracture of right femur and internal fixation using dynamic hip screw plate, Total abdominal hysterectomy. Discharge Vitals Heart Rate (Peripheral) 83 Respiratory Rate 16 Blood Pressure 132/80 Height 154 cm Height 61 in Weight 39.9 kg Weight 87.78 lb BMI 16.82 What to do next Scheduled Follow-Up Appointments Tuesday 10:40 AM EST With: Jaclyn SON MD Where: [facility] [place] Normal [address] [place], [place] [address] [address]- \.br\ You Need to Schedule the Following Appointments\.br \ Follow Up with Jaclyn SON MD, FAM When: Within 6 months\.br\ Where:\.br\ [address] [facility]\.br\ [place] [address]-\.br\ \.br\ Medications\.br\ What How Much When Instructions\.br \ Unchanged albuterol (Pro-Air HFA CFC free 90 mcg/ inh MDI) 2 Puffs Inhalation Every 6 hours as needed for for wheezing Contact prescribing physician if questions or concerns \.br\ Unchanged aspirin (aspirin 81 mg Oral EC Tab) 1 Tablets By Mouth Every day Contact prescribing physician if questions or concerns \.br\ Unchanged famotidine (famotidine 40 mg Tab) 1 Tablets By Mouth Once a day (at bedtime) Contact prescribing physician if questions or concerns \.br\ Unchanged loratadine (loratadine 10 mg Tab) 1 Tablets By Mouth Every day Contact prescribing physician if questions or concerns \.br\ Unchanged meclizine (meclizine 12.5 mg Tab) 1 Tablets By Mouth 3 times a day as needed for for dizziness Use upto three times daily for dizziness as needed Contact prescribing physician if questions or concerns \.br\ Unchanged multivitamin with minerals (Multivitamins and Minerals) 1 tab By Mouth Every day Contact prescribing physician if questions or concerns \.br\ Unchanged sodium chloride (Sodium Chloride 1 g oral tablet) 1 tab By Mouth Every day Contact prescribing physician if questions or concerns \.br\ Unchanged umeclidinium-rigo anterol (Anoro Ellipta 62.5 mcg-25 mcg inhalation powder) 1 Inhalation Inhalation Every day Contact prescribing physician if questions or concerns \.br\ Allergies\.br\ codeine (Chest pain)\.br\ Problems\.br\ Ongoing - Any problem that you are currently receiving treatment for.\.br\ Allergic rhinitis due to pollen\.br\ Anemia of chronic disease\.br\ At risk for falls\.br\ Benign positional vertigo\.br\ BMI less than 19,adult\.br\ Chronic kidney disease, stage 3b\.br\ Cigarette nicotine dependence\.br\ COPD with asthma\.br\ Heart burn\.br\ Hyperkalemia\.br \ Hyperplastic polyp of sigmoid colon\.br\ Hyperplastic rectal polyp\.br\ Hyponatremia\.br \ Polyp of ascending colon\.br\ Screening mammography declined\.br\ Historical - Any problem that you are no longer receiving treatment for.\.br\ Encounter for lipid screening for cardiovascular disease\.br\ Education Materials\.br\ Food Basics for Chronic Kidney Disease\.br\ Chronic kidney disease (CKD) occurs when the kidneys are permanently damaged over a long period of time. When your kidneys are not working well, they cannot remove waste, fluids, and other substances from your blood as well as they did before. The substances can build up, which can worsen kidney damage and affect how your body functions. Certain foods lead to a buildup of these substances. By changing your diet, you can help prevent more kidney damage and delay or prevent the need for dialysis.\.br\ What are tips for following this plan?\.br\ Reading food labels\.br\ ? \.br\ Check the amount of salt (sodium) in foods. Choose foods that have less than 300 milligrams (mg) per serving.\.br\ ? \.br\ Check the ingredient list for phosphorus or potassium-based additives or preservatives.\. br\ ? \.br\ Check the amount of saturated fat and trans fat. Limit or avoid these fats as told by your dietitian.\.br\ Shopping\.br\ ? \.br\ Avoid buying foods that are:\.br\ ? \.br\ Processed or prepackaged.\.br \ ? \.br\ Calcium-enriched or that have calcium added to them (are fortified).\.br\ ? \.br\ Do not buy foods that have salt or sodium listed among the first five ingredients.\.br \ ? \.br\ Buy canned vegetables and beans that say no salt added or low sodium and rinse them before eating.\.br\ Cooking\.br\ ? \.br\ Soak vegetables, such as potatoes, before cooking to reduce potassium. To do this:\.br\ 1. \.br\ Peel and cut the vegetables into small pieces.\.br\ 2. \.br\ Soak the vegetables in warm water for at least 2 hours. For every 1 cup of vegetables, use 10 cups of water.\.br\ 3. \.br\ Drain and rinse the vegetables with warm water.\.br\ 4. \.br\ Boil the vegetables for at least 5 minutes.\.br\ Meal planning\.br\ ? \.br\ Limit the amount of protein you eat from plant and animal sources each day.\.br\ ? \.br\ Do not add salt to food when cooking or before eating.\.br\ ? \.br\ Eat meals and snacks at around the same time each day.\.br\ General information\.br\ ? \.br\ Talk with your health care provider about whether you should take a vitamin and mineral supplement.\.br\ ? \.br\ Use standard measuring cups and spoons to measure servings of foods. Use a kitchen scale to measure portions of protein foods.\.br\ ? \.br\ If told by your health care provider, avoid drinking too much fluid. Measure and count all liquids, including water, ice, soups, flavored gelatin, and frozen desserts such as ice pops or ice cream.\.br\ If you have diabetes:\.br\ ? \.br\ If you have diabetes (diabetes mellitus) and CKD, it is important to keep your blood sugar (glucose) in the target range recommended by your health care provider. Follow your diabetes management plan. This may include:\.br\ ? \.br\ Checking your blood glucose regularly.\.br\ ? \.br\ Taking medicines by mouth, taking insulin, or taking both.\.br\ ? \.br\ Exercising for at least 30 minutes on 5 or more days each week, or as told by your health care provider.\.br\ ? \.br\ Tracking how many servings of carbohydrates you eat at each meal.\.br\ ? \.br\ You may be given specific guidelines on how much of certain foods and nutrients you may eat, depending on your stage of kidney disease and whether you have high blood pressure (hypertension). Follow your meal plan as told by your dietitian.\.br\ What nutrients should I limit?\.br\ Work with your health care provider and dietitian to develop a meal plan that is right for you. Foods you can eat and foods you should limit or avoid will depend on the stage of your kidney disease and any other health conditions you have. The items listed below are not a complete list. Talk with your dietitian about what dietary choices are best for you.\.br\ Potassium\.br\ Potassium affects how steadily your heart beats. If too much potassium builds up in your blood, the potassium can cause an irregular heartbeat or even a heart attack.\.br\ You may need to limit or avoid foods that are high in potassium, such as:\.br\ ? \.br\ Milk and soy milk.\.br\ ? \.br\ Fruits, such as bananas, apricots, nectarines, melon, prunes, raisins, kiwi, and oranges.\.br\ ? \.br\ Vegetables, such as potatoes, sweet potatoes, yams, tomatoes, leafy greens, beets, avocado, pumpkin, and winter squash.\.br\ ? \.br\ White and brunner beans.\.br\ ? \.br\ Whole-wheat breads and pastas.\.br\ ? \.br\ Beans and nuts.\.br\ Phosphorus\.br\ Phosphorus is a mineral found in your bones. A balance between calcium and phosphorus is needed to build and maintain healthy bones. Too much phosphorus pulls calcium from your bones. This can make your bones weak and more likely to break. Too much phosphorus can also make your skin itch.\.br\ You may need to limit or avoid foods that are high in phosphorus, such as:\.br\ ? \.br\ Milk and dairy products.\.br\ ? \.br\ Dried beans and peas.\.br\ ? \.br\ Tofu, soy milk, and other soy-based meat replacements.\.b r\ ? \.br\ Dark-colored sodas.\.br\ ? \.br\ [facility] Family Medicine Office/Clini c Noteon 08-15-2023 Family Medicine Office/Clinic Note Chief Complaint 6mo chk up, not fasting, no rfs, needs tetanus and shingrix History of Present Illness Presents with her adult daughter for routine follow-up. When last seen had hyperkalemia related to her chronic stage III?4 renal insufficiency. Specialist had added some type of potassium binder but has since discontinued. Has follow-up there approximately mid March. Will get labs prior. Reflux intermittent always in the epigastric region responds if she takes OTC antacid. Still taking famotidine daily cannot utilize PPI because of renal insufficiency. Denies any dysphagia. Has lost another 5 pounds. Daughter claims that she usually skips evening meal. She does smoke well over a pack per day. Moderate caffeine consumption. Denies any change in bowels or bladder. COPD has been stable with chronic inhaler using albuterol for rescue only as needed. We did discuss vaccine recommendations. Chronic vertiginous symptoms have been stable. Review of Systems PHQ Score Initial Depression Screen Score: 0 see hpi otherwise neg Physical Exam Vitals & Measurements HR: 83(Peripheral) RR: 16 BP: 132/80 SpO2: 97% HT: 61 in HT: 154 cm WT: 39.9 kg WT: 87.78 lb BMI: 16.82 Constitutional: Adequately groomed well-hydrated, smell of tobacco smoke is present HEENT: Neck is thin no JVD no thyromegaly no adenopathy poor afognak dentition oral mucosa moist, conjunctive a clear nonicteric sclera grossly normal hearing Cardiothoracic: Regular rate and rhythm no murmur gallop or rub no edema Respiratory: CTA bilaterally but greatly diminished at the bases no wheeze or rhonchi Abdomen/GI: No tenderness on palpation in the epigastric region. Positive bowel sounds no organomegaly Genitourinary: Deferred Musculoskeletal: Somewhat cachectic appearance very thin Neurologic: No acute neurologic deficits no tremors Integument: Skin is sallow adequate turgor no bruising Psychiatric: Cooperative talkative Assessment/Plan 1. Chronic kidney disease, stage 3b (N18.32: Chronic kidney disease, stage 3b) Importance of continuing with fluid hydration avoiding nephrotoxic substances such as anti-inflammatories and keep follow-up with the store operations specialist in March. I will watch for labs. 2. Hyponatremia (E87.1: Hypo-osmolality and hyponatremia) Patient continues with sodium tablets. 3. Hyperkalemia (E87.5: Hyperkalemia) No longer requiring any potassium binder. See problem #1 continue following with nephrology 4. 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 Continued efforts at smoking cessation encouraged 5. Anemia of chronic disease (D63.8: Anemia in other chronic diseases classified elsewhere) Stable at this time planning labs with the store operations specialist 6. Benign positional vertigo (H81.10: Benign paroxysmal vertigo, unspecified ear) Has meclizine available if necessary but has been stable 7. Heart burn (R12: Heartburn) Continue famotidine and strict dietary compliance. Always remain vigilant for any dysphagia 8. Cigarette nicotine dependence (F17.210: Nicotine dependence, cigarettes, uncomplicated) We strongly recommend to quit tobacco use. Cigarette smoking harms nearly every organ of the body, causes many diseases, and reduces the health of smokers in general. Quitting smoking lowers your risk for smoking-related diseases and can add years to your life. We encourage you to visit www.smokefree.gov access to helpful resources including free telephone support. If you decide on prescription treatment to help you quit, we would be happy to provide these. 9. BMI less than 19,adult (Z68.1: Body mass index [BMI] 19.9 or less, adult) Explained my concern about continued weight loss. Would consider malnutrition as a diagnosis. Very important to maintain more calorie intake avoid skipping meals reduction in smoking and nicotine/caffeine. Patient defers all options for calorie supplements such as Ensure Follow-up With When Contact Information Jaclyn SON MD, FAM Within [address] [place] [id number]- Additional Instructions: Patient Education Food Basics for Chronic Kidney Disease Problem List/Past Medical History Ongoing Allergic rhinitis due to pollen Anemia of chronic disease At risk for falls Benign positional vertigo BMI less than 19,adult Chronic kidney disease, stage 3b Cigarette nicotine dependence COPD with asthma Heart burn Hyperkalemia Hyperplastic polyp of sigmoid colon Hyperplastic rectal polyp Hyponatremia Polyp of ascending colon Screening mammography declined Historical Encounter for lipid screening for cardiovascular disease Procedure/Surgical History Colonoscopy (03/15/2022), Colonoscopy (09/09/2021), Cholecystectomy, Closed reduction of fracture of right femur and internal fixation using dynamic hip screw plate, Total abdominal hysterectomy. M (more content not included)... [facility] Comment on above: Result Comment: Elec tronically Signed By: Vinnie SON MD.shannon\Date and Time Signed: 01/25/23 13:33 EDT Patient Educationon 01-24-20 Patient Education Nephrology Food Basics for Chronic Kidney Disease Chronic kidney disease (CKD) occurs when the kidneys are permanently damaged over a long period of time. When your kidneys are not working well, they cannot remove waste, fluids, and other substances from your blood as well as they did before. The substances can build up, which can worsen kidney damage and affect how your body functions. Certain foods lead to a buildup of these substances. By changing your diet, you can help prevent more kidney damage and delay or prevent the need for dialysis. What are tips for following this plan? Reading food labels ? Check the amount of salt (sodium) in foods. Choose foods that have less than 300 milligrams (mg) per serving. ? Check the ingredient list for phosphorus or potassium-based additives or preservatives. ? Check the amount of saturated fat and trans fat. Limit or avoid these fats as told by your dietitian. Shopping ? Avoid buying foods that are: ? Processed or prepackaged. ? Calcium-enriched or that have calcium added to them (are fortified). ? Do not buy foods that have salt or sodium listed among the first five ingredients. ? Buy canned vegetables and beans that say no salt added or low sodium and rinse them before eating. Cooking ? Soak vegetables, such as potatoes, before cooking to reduce potassium. To do this: 1. Peel and cut the vegetables into small pieces. 2. Soak the vegetables in warm water for at least 2 hours. For every 1 cup of vegetables, use 10 cups of water. 3. Drain and rinse the vegetables with warm water. 4. Boil the vegetables for at least 5 minutes. Meal planning ? Limit the amount of protein you eat from plant and animal sources each day. ? Do not add salt to food when cooking or before eating. ? Eat meals and snacks at around the same time each day. General information ? Talk with your health care provider about whether you should take a vitamin and mineral supplement. ? Use standard measuring cups and spoons to measure servings of foods. Use a kitchen scale to measure portions of protein foods. ? If told by your health care provider, avoid drinking too much fluid. Measure and count all liquids, including water, ice, soups, flavored gelatin, and frozen desserts such as ice pops or ice cream. If you have diabetes: ? If you have diabetes (diabetes mellitus) and CKD, it is important to keep your blood sugar (glucose) in the target range recommended by your health care provider. Follow your diabetes management plan. This may include: ? Checking your blood glucose regularly. ? Taking medicines by mouth, taking insulin, or taking both. ? Exercising for at least 30 minutes on 5 or more days each week, or as told by your health care provider. ? Tracking how many servings of carbohydrates you eat at each meal. ? You may be given specific guidelines on how much of certain foods and nutrients you may eat, depending on your stage of kidney disease and whether you have high blood pressure (hypertension). Follow your meal plan as told by your dietitian. What nutrients should I limit? Work with your health care provider and dietitian to develop a meal plan that is right for you. Foods you can eat and foods you should limit or avoid will depend on the stage of your kidney disease and any other health conditions you have. The items listed below are not a complete list. Talk with your dietitian about what dietary choices are best for you. Potassium Potassium affects how steadily your heart beats. If too much potassium builds up in your blood, the potassium can cause an irregular heartbeat or even a heart attack. You may need to limit or avoid foods that are high in potassium, such as: ? Milk and soy milk. ? Fruits, such as bananas, apricots, nectarines, melon, prunes, raisins, kiwi, and oranges. ? Vegetables, such as potatoes, sweet potatoes, yams, tomatoes, leafy greens, beets, avocado, pumpkin, and winter squash. ? White and brunner beans. ? Whole-wheat breads and pastas. ? Beans and nuts. Phosphorus Phosphorus is a mineral found in your bones. A balance between calcium and phosphorus is needed to build and maintain healthy bones. Too much phosphorus pulls calcium from your bones. This can make your bones weak and more likely to break. Too much phosphorus can also make your skin itch. You may need to limit or avoid foods that are high in phosphorus, such as: ? Milk and dairy products. ? Dried beans and peas. ? Tofu, soy milk, and other soy-based meat replacements. ? Dark-colored sodas. ? Nuts and peanut butter. ? Meat, poultry, and fish. ? Bran cereals and oatmeal. Protein Protein helps you make and keep muscle. It also helps to repair your body's cells and tissues. One of the natural breakdown products of protein is a waste product called urea. When your kidneys are not working properly, they cannot remove wastes, such as urea. Reducing how much protein (more content not included)... [facility] Quick Strepon 10-22-2022 S. pyogenes Org specific cx Ql (Throat) Negative [employer] Other Quick Strep [facility] [employer] Other MAGNESIUMon 09-08-2022 Magnesium [Mass/Vol] 1.6 mg/dL Critically low 1.8-2.4 [facility] Comment on above: Performed By: #### M G, RENAL #### [facility] [address] [place] [address] Dr. Agustín Odell RENAL FUNCTION PANELon 09-08 Albumin [Mass/Vol] 3.4 g/dL Normal 3.4-5.0 [facility] Comment on above: Performed By: #### M G, RENAL #### [facility] [address] [address] [address] Agustín Odell Calcium [Mass/Vol] 9.2 mg/dL Normal 8.5-10.1 [facility] Comment on above: Performed By: #### M G, RENAL #### [facility] [address] [place] [address] Dr. Agustín Odell Chloride [Moles/Vol] 108 mmol/L Critically high 98-107 [facility] Comment on above: Performed By: #### M G, RENAL #### [facility] [address] [place] [address] Dr. Agustín Odell CO2 [Moles/Vol] 26.1 mmol/L Normal 21.0-32.0 [facility] Comment on above: Performed By: #### M G, RENAL #### [facility] [address] [place] [address] Dr. Agustín Odell Creatinine [Mass/Vol] 1.70 mg/dL Critically high 0.55-1.02 [facility] Comment on above: Performed By: #### M G, RENAL #### [facility] [address] [address] [address] Agustín Odell EGFR-AF MONTENEGRIN 36 mL/min/1.73m2 Critically low >=60 [facility] Comment on above: Performed By: #### M G, RENAL #### [facility] [address] [place] [address] Dr. Agustín Odell EGFR-NON AF MONTENEGRIN 29 mL/min/1.73m2 Critically low >=60 [facility] Comment on above: Performed By: #### Sin Arevalo, RENAL #### [facility] [address] [place] [address] Dr. Agustín Odell Glucose [Mass/Vol] 190 mg/dL Critically high 74-106 [facility] Comment on above: Performed By: #### Sin Arevalo, RENAL #### [facility] [address] [place] [address] Dr. Agustín Odell Phosphate [Mass/Vol] 3.3 mg/dL Normal 2.6-4.7 [facility] Comment on above: Performed By: #### Sin Arevalo, RENAL #### [facility] [address] [place] [address] Dr. Agustín Odell Potassium [Moles/Vol] 4.4 mmol/L Normal 3.5-5.1 [facility] Comment on above: Performed By: #### M G, RENAL #### [facility] [address] [place] [address] Dr. Agustín Odell Sodium [Moles/Vol] 144 mmol/L Normal 136-145 [facility] Comment on above: Performed By: #### M G, RENAL #### [facility] [address] [place] [address] Dr. Agustín Odell Urea nitrogen [Mass/Vol] 21.0 mg/dL Critically high 7.0-18.0 [facility] Comment on above: Performed By: #### M G, RENAL #### [facility] [address] [address] [address] Agustín Odell CHEMISTRYOrdered By: SYSTEM SYSTEM on 08-30-2022 Anion gap [Moles/Vol] 11 mmol/L Normal 6 - 16 mEq/L [facility] Remisol Calcium [Mass/Vol] 9.3 mg/dL Normal 8.9 - 11.1 mg/dL [facility] Chloride [Moles/Vol] 105 mmol/L Normal 101 - 111 mmol/ L [facility] CO2 [Moles/Vol] 26 mmol/L Normal 21 - 31 mmol/L [facility] Creatinine [Mass/Vol] 1.5 mg/dL High 0.5 - 1.3 mg/d L [facility]isol GFR/1.73 sq M.predicted among blacks MDRD (S/P/Bld) [Vol rate/Area] 41 mL/min/1.73 m2 Low >=59mL/min/1.73 m2 FT Chem S GFR/1.73 sq M.predicted among non-blacks MDRD (S/P/Bld) [Vol rate/Area] 34 mL/min/1.73 m2 Low >=59mL/min/1.73 m2 [facility] S Glucose [Mass/Vol] 116 mg/dL Normal 55 - 199 mg/dL [facility] Potassium [Moles/Vol] 6.0 mmol/L Invalid Interpretation Code 3.5 - 5.3 mmol/L [facility] Comment on above: Result Comment: Crit ical Result verified by repeat analysis\Critical Result S_K:6.0 Called to HAYLEE BAJWA AT [facility] by SAL COREA And Read Back For Confirmation at: 08/30/2022 18:27:25 Sodium [Moles/Vol] 136 mmol/L Normal 135 - 145 mmol/L [facility] Remisol Urea nitrogen [Mass/Vol] 27 mg/dL High 5 - 21 mg/dL FT Remisol Urea nitrogen/Creatinine [Mass ratio] 18 mg/mg Normal 10 - 20 [facility] Remisol CHEMISTRYOrdered By: SYSTEM SYSTEM on 08-06-2022 Anion gap [Moles/Vol] 12 mmol/L Normal 6 - 16 mEq/L [facility] Remisol Calcium [Mass/Vol] 9.0 mg/dL Normal 8.9 - 11.1 mg/dL [facility] Chloride [Moles/Vol] 102 mmol/L Normal 101 - 111 mmol/ L [facility] CO2 [Moles/Vol] 26 mmol/L Normal 21 - 31 mmol/L [facility] Creatinine [Mass/Vol] 1.6 mg/dL High 0.5 - 1.3 mg/d L [facility] Remisol GFR/1.73 sq M.predicted among blacks MDRD (S/P/Bld) [Vol rate/Area] 38 mL/min/1.73 m2 Low >=59mL/min/1.73 m2 [facility] Chem S GFR/1.73 sq M.predicted among non-blacks MDRD (S/P/Bld) [Vol rate/Area] 32 mL/min/1.73 m2 Low >=59mL/min/1.73 m2 [facility] [place] S Glucose [Mass/Vol] 111 mg/dL Normal 55 - 199 mg/dL [facility] Potassium [Moles/Vol] 5.1 mmol/L Normal 3.5 - 5.3 mmol /L [facility] Sodium [Moles/Vol] 135 mmol/L Normal 135 - 145 mmol/L [facility] Troponin I.cardiac [Mass/Vol] 29.90 pg/mL High 10.10 - 27.10 pg/mL [facility] Urea nitrogen [Mass/Vol] 25 mg/dL High 5 - 21 mg/dL [facility] Urea nitrogen/Creatinine [Mass ratio] 16 mg/mg Normal 10 - 20 [facility] Potassium [Moles/Vol] 6.0 mmol/L Invalid Interpretation Code 3.5 - 5.3 mmol/L [facility] Comment on above: Result Comment: Crit ical Result verified by repeat analysis\Critical Result S_K:6.0 Called to NABILA HOLLEY AT [facility] by DANGELO LEMA And Read Back For Confirmation at: 08/06/2022 15:53:58 COAGULATIONOrdered By: Brigid Varner on 08-06-2022 aPTT Coag (PPP) [Time] 31.4 s Normal 25.1 - 36.5 second(s) [facility] Auto Coag INR Coag (PPP) [Relative time] 1.0 {INR} Invalid Interpretation Code [facility] Coag PT Coag (PPP) [Time] 11.4 s Normal 9.4 - 1 2.5 second(s) [facility] Auto Coag HEMATOLOGYOrdered By: SYSTEM SYSTEM on 08-06-2022 Basophils/100 WBC (Bld) 0.5 % Normal 0.0 - 2.0 % [facility] HemeAutoSS Basophils/Leukocytes Auto (Bld) [Pure # fraction] 0.0 E9/L Normal 0.0 - 0.2 E9/L [facility]AutoSS Eosinophils/100 WBC (Bld) 1.0 % Normal 0.0 - 8.0 % [facility]eAutoSS Eosinophils/Leukocyte s Auto (Bld) [Pure # fraction] 0.1 E9/L Normal 0.0 - 0.5 E9/L [facility]eAutoSS Lymphocytes/100 WBC (Bld) 19.5 % Normal 14.0 - 50.0 % [facility]eAutoSS Lymphocytes/Leukocyte s Auto (Bld) [Pure # fraction] 1.4 E9/L Normal 1.0 - 4.0 E9/L [facility]eAutoSS Monocytes/100 WBC (Bld) 9.5 % Normal 4.0 - 14.0 % [facility]eAutoSS Monocytes/Leukocytes Auto (Bld) [Pure # fraction] 0.7 E9/L Normal 0.2 - 1.0 E9/L [facility]Auto[facility] Neutrophils/100 WBC (Bld) 69.5 % Normal 36.0 - 75.0 % [facility]eAutoSS Neutrophils/Leukocyte s Auto (Bld) [Pure # fraction] 5.0 E9/L Normal 2.0 - 7.5 E9/L [facility]SS HEMATOLOGYOrdered By: Michael Wang on 08-06-2022 Erythrocyte distribution width (RBC) [Ratio] 16.0 % High 10.9 - 14.2 % [facility]eAutoSS Hematocrit (Bld) [Volume fraction] 33.8 % Low 34.0 - 46.0 % [facility]eAutoSS Hemoglobin (Bld) [Mass/Vol] 10.7 g/dL Low 12.0 - 16.0 gm/dL [facility]eAuto[facility] MCH (RBC) [Entitic mass] 25.4 pg Low 27.0 - 34.0 pg [facility]eAutoSS MCHC (RBC) [Mass/Vol] 31.5 g/dL Normal 31.4 - 36.0 gm/dL [facility]eAutoSS MCV (RBC) [Entitic vol] 80.7 fL Normal 80.0 - 100.0 fL [facility]eAutoSS Platelet mean volume (Bld) [Entitic vol] 9.2 fL Normal 6.4 - 10.8 fL [facility]eAutoSS Platelets (Bld) [#/Vol] 162.0 E9/L Normal 150.0 - 500.0 E9/L [facility]eAutoSS RBC (Bld) [#/Vol] 4.2 E12/L Low 4.3 - 5.9 E12/L [facility]eAuto[facility] WBC corrected for nucl RBC Auto (Bld) [#/Vol] 7.2 E9/L Normal 4.0 - 11.0 E9/L [facility]eAutoSS CHEMISTRYOrdered By: SYSTEM SYSTEM on 07-29-2022 Albumin [Mass/Vol] 3.7 g/dL Normal 3.3 - 5.0 gm/dL [facility] Albumin/Globulin [Mass ratio] 1.1 {ratio} Normal 1.1 - 2.2 [facility] ALP [Catalytic activity/Vol] 69 [iU]/d Normal 21 - 98 Int._Unit/L [facility] ALT No additional P-5'-P [Catalytic activity/Vol] 9 [iU]/d Normal 6 - 46 Int._Unit/L [facility] Anion gap [Moles/Vol] 14 mmol/L Normal 6 - 16 mEq/L [facility] AST [Catalytic activity/Vol] 16 [iU]/d Normal 5 - 43 Int._Unit/L [facility] Bilirubin [Mass/Vol] 0.3 mg/dL Normal 0.0 - 1.1 mg/dL [facility] Calcium [Mass/Vol] 9.4 mg/dL Normal 8.9 - 11.1 mg/dL [facility] Chloride [Moles/Vol] 101 mmol/L Normal 101 - 111 mmol/ L [facility] CO2 [Moles/Vol] 26 mmol/L Normal 21 - 31 mmol/L [facility] Creatinine [Mass/Vol] 1.7 mg/dL High 0.5 - 1.3 mg/d L [facility] GFR/1.73 sq M.predicted among blacks MDRD (S/P/Bld) [Vol rate/Area] 36 mL/min/1.73 m2 Low >=59mL/min/1.73 m2 [facility] Chem S GFR/1.73 sq M.predicted among non-blacks MDRD (S/P/Bld) [Vol rate/Area] 30 mL/min/1.73 m2 Low >=59mL/min/1.73 m2 [facility] Chem S Globulin (S) [Mass/Vol] 3.4 g/dL Normal 1.4 - 4.0 gm/dL [facility] Glucose [Mass/Vol] 93 mg/dL Normal 55 - 199 mg/dL [facility] Potassium [Moles/Vol] 5.8 mmol/L High 3.5 - 5.3 mmol /L [facility] Protein [Mass/Vol] 7.1 g/dL Normal 6.0 - 7.8 gm/dL [facility] Remisol Sodium [Moles/Vol] 135 mmol/L Normal 135 - 145 mmol/L [facility] Urea nitrogen [Mass/Vol] 24 mg/dL High 5 - 21 mg/dL [facility] Urea nitrogen/Creatinine [Mass ratio] 14 mg/mg Normal 10 - 20 [facility] HEMATOLOGYOrdered By: SYSTEM SYSTEM on 07-29-2022 Basophils/100 WBC (Bld) 0.5 % Normal 0.0 - 2.0 % [facility]eAutoSS Basophils/Leukocytes Auto (Bld) [Pure # fraction] 0.0 E9/L Normal 0.0 - 0.2 E9/L [facility] Eosinophils/100 WBC (Bld) 2.2 % Normal 0.0 - 8.0 % [facility]eAutoSS Eosinophils/Leukocyte s Auto (Bld) [Pure # fraction] 0.1 E9/L Normal 0.0 - 0.5 E9/L [facility]eAutoSS Lymphocytes/100 WBC (Bld) 34.3 % Normal 14.0 - 50.0 % [facility]eAutoSS Lymphocytes/Leukocyte s Auto (Bld) [Pure # fraction] 2.3 E9/L Normal 1.0 - 4.0 E9/L [facility]AutoSS Monocytes/100 WBC (Bld) 8.5 % Normal 4.0 - 14.0 % [facility]eAutoSS Monocytes/Leukocytes Auto (Bld) [Pure # fraction] 0.6 E9/L Normal 0.2 - 1.0 E9/L [facility] Neutrophils/100 WBC (Bld) 54.5 % Normal 36.0 - 75.0 % [facility]eAutoSS Neutrophils/Leukocyte s Auto (Bld) [Pure # fraction] 3.6 E9/L Normal 2.0 - 7.5 E9/L [facility] HemeAutoSS HEMATOLOGYOrdered By: Evi De Oliveira on 07-29-2022 Erythrocyte distribution width (RBC) [Ratio] 15.6 % High 10.9 - 14.2 % [facility] HemeAutoSS Hematocrit (Bld) [Volume fraction] 34.3 % Normal 34.0 - 46.0 % [facility] Hemoglobin (Bld) [Mass/Vol] 11.0 g/dL Low 12.0 - 16.0 gm/dL [facility]eAutoSS MCH (RBC) [Entitic mass] 25.7 pg Low 27.0 - 34.0 pg [facility]AutoSS MCHC (RBC) [Mass/Vol] 32.1 g/dL Normal 31.4 - 36.0 gm/dL [facility] MCV (RBC) [Entitic vol] 80.0 fL Normal 80.0 - 100.0 fL [facility]Auto[facility] Platelet mean volume (Bld) [Entitic vol] 10.0 fL Normal 6.4 - 10.8 fL [facility]eAuto[facility] Platelets (Bld) [#/Vol] 173.0 E9/L Normal 150.0 - 500.0 E9/L [facility]eAutoSS RBC (Bld) [#/Vol] 4.3 E12/L Normal 4.3 - 5.9 E12/L [facility] HemeAutoSS WBC corrected for nucl RBC Auto (Bld) [#/Vol] 6.6 E9/L Normal 4.0 - 11.0 E9/L [facility]eAutoSS Lico 03-15-2022 L Specimen: [id number] Received: 03/15/22 Status: HARLEY Sandoval Num: [id number] Spec Type: Surgical Subm Dr: Chance Beavers MD Tissues: A Colon - Polyp (CECAL POLYP) B Colon - Polyp (HEPATIC FLEXURE POLYP) Procedures: HE Stain/4, Gross/Micro L4/2 Age/ Patient Sex Location Account Attending Physician Lencho Candelario 71/F [id number] Chance Beavers MD SPEC NUM: [id number] RECD: 03/15/22 STATUS: HARLEY SANDOVAL NUM: [id number] EDMOND: 03/15/22- SUBM DR: Chance Beavers MD ENTERED: 03/15/22-1228 [facility] DR: SPEC TYPE: Surgical DEPT: S ORDERED: HE Stain/4, Gross/Micro L4/2 ORDERED: HE Stain/4, Gross/Micro L4/2 Pathological Diagnosis A. Cecal polyp, polypectomy: - Fragments of tubular adenoma. B. Colon polyp, hepatic flexure, polypectomy: - Fragments of tubular adenoma. Clinical Information Colon polyp Gross Description A. Received in formalin labeled with the patient's name, number and cecal colon polyp are multiple fragments of soft ivan tissue measuring 1.5 x 1.0 x 0.3 cm in aggregate. Entirely submitted in one cassette labeled A1. B. Received in formalin labeled with the patient's name, number and hepatic flexure polyp are multiple fragments of soft ivan tissue measuring 3.0 x 1.4 x 0.4 cm in aggregate. Entirely submitted in one cassette labeled B1. Specimen: [id number] Received: 03/15/22 Status: SOUT Re Num: [id number] Spec Type: Surgical Subm Dr: Chance Beavers MD Tissues: A Colon - Polyp (CECAL POLYP) B Colon - Polyp (HEPATIC FLEXURE POLYP) Procedures: HE Stain/4, Gross/Micro L4/2 Patient: Lencho Candelario [id number] (Continued) Specimen: [id number] Received: 03/15/22 (Continued) Signed (signatur e on file) Beka Rizvi MD 03/16/22 1535 Specimen: [id number] Received: 03/15/22 Status: HARLEY Sandoval Num: [id number] Spec Type: Surgical Subm Dr: Chance Beavers MD Tissues: A Colon - Polyp (CECAL POLYP) B Colon - Polyp (HEPATIC FLEXURE POLYP) Procedures: HE Stain/4, Gross/Micro L4/2 Patient: Lencho Candelario [id number] (Continued) Specimen: [id number] Received: 03/15/22 (Continued) Microscopic Description A. Two glass slides with H E stained material have been examined. The microscopic findings support the above pathologic diagnosis. B. Two glass slides with H E stained material have been examined. The microscopic findings support the above pathologic diagnosis. CPT Codes 05088?2 Specimen: [id number] Received: 03/15/22 Status: HARLEY Ngozi Num: [id number] Spec Type: Surgical Subm Dr: Chance Beavers MD Tissues: A Colon - Polyp (CECAL POLYP) B Colon - Polyp (HEPATIC FLEXURE POLYP) Procedures: HE Stain/4, Gross/Micro L4/2 Patient: Lencho Candelario [id number] (Continued) Signed (signatur e on file) Beka Rizvi MD 03/16/[address] [facility] COVID-19 Antigenon 2 COVID-19 Antigen Healthcare Worker?: N Reference Range: Negative Negative results, from patients with symptom onset beyond five days, should be treated as presumptive and confirmation with a molecular assay, if necessary, for patient management, may be performed. Negative results do not rule out COVID-19 and should not be used as the sole basis for treatment or patient management decisions, including infection control decisions. Negative results should be considered in the context of a patient's recent exposures, history and the presence of clinical signs and symptoms consistent with COVID-19. The [place] SARS Antigen ISIDRO does not differentiate between SARS-CoV and SARS-CoV-2. This test was developed and its performance characteristic determined by [employer] and validated at [facility]. This test has not been FDA cleared or approved. This test has been authorized by FDA under an Emergency Use Authorization (EUA). This test has been validated in accordance with the FDA's Guidance Document (Policy for Diagnostics Testing in Laboratories Certified to Perform High Complexity Testing under CLIA prior to Emergency Use Authorization for Coronavirus Disease-2019 during the Public Health Emergency) issued on September 13, 2019. This test is only authorized for the duration of time the declaration that circumstances exist justifying the authorization of the emergency use of in vitro diagnostic tests for detection of SARS-CoV-2 virus and/or diagnosis of COVID-19 infection under section 564(b)(1) of the Act, 21 U.S.C. 360bbb-3(b)(1), unless the authorization is terminated or revoked sooner. SARS-CoV+SARS-CoV-2 (COVID-19) Ag [Presence] in Respiratory specimen by Rapid immunoassay Negative for SARS Antigen by ISIDRO PERFORMED BY: [facility] [place] [address] PATHOLOGIST STRUCTURAL TEST ENGINEER AAKASH GARCES M.D. Normal [facility] Comment on above: Performed By: #### C OVID-19 GARLAND, SOFIANEG #### [address] COVID-19 SOFIAOrdered By: Kathleen Beavers on 03-11-2022 SARS-CoV+SARS-CoV-2 (COVID-19) Ag IA.rapid Ql (Resp) Negative Negative [facility] Comment on above: This is a duplicate [place] SARS Antigen (ISIDRO) result to be used for statistical tracking purpose only. No Panel InformationOrdered By: Chance Beavers on 03-11-2022 SARS Antigen (LFIA) [facility] Ag Negativeon 03-11-20 [facility] Ag Negative Negative Normal Negative [facility] Comment on above: Result Comment: This is a duplicate [place] SARS Antigen (ISIDRO) result to be used for statistical tracking purpose only. PERFORMED BY: [place] [address] PATHOLOGIST STRUCTURAL TEST ENGINEER AAKASH GARCES M.D. Performed By: #### C OVID-19 GARLAND, SOFIANEG #### [address] CHEMISTRYOrdered By: SYSTEM SYSTEM on 01-29-2022 Potassium [Moles/Vol] 4.8 mmol/L Normal 3.5 - 5.3 mmol /L [facility] CHEMISTRYOrdered By: SYSTEM SYSTEM on 01-21-2022 Albumin [Mass/Vol] 3.7 g/dL Normal 3.3 - 5.0 gm/dL F [facility] Albumin/Globulin [Mass ratio] 1.2 {ratio} Normal 1.1 - 2.2 [facility] ALP [Catalytic activity/Vol] 77 [iU]/d Normal 21 - 98 Int._Unit/L [facility] ALT No additional P-5'-P [Catalytic activity/Vol] 10 [iU]/d Normal 6 - 46 Int._Unit/L [facility] Anion gap [Moles/Vol] 9 mmol/L Normal 6 - 16 mEq/L [facility] Remisol AST [Catalytic activity/Vol] 17 [iU]/d Normal 5 - 43 Int._Unit/L [facility] Bilirubin [Mass/Vol] 0.3 mg/dL Normal 0.0 - 1.1 mg/dL [facility] Calcium [Mass/Vol] 9.3 mg/dL Normal 8.9 - 11.1 mg/dL [facility] Chloride [Moles/Vol] 105 mmol/L Normal 101 - 111 mmol/ L [facility] CO2 [Moles/Vol] 28 mmol/L Normal 21 - 31 mmol/L [facility] Creatinine [Mass/Vol] 1.6 mg/dL High 0.5 - 1.3 mg/d L [facility] GFR/1.73 sq M.predicted among blacks MDRD (S/P/Bld) [Vol rate/Area] 38 mL/min/1.73 m2 Low >=59mL/min/1.73 m2 [facility] S GFR/1.73 sq M.predicted among non-blacks MDRD (S/P/Bld) [Vol rate/Area] 32 mL/min/1.73 m2 Low >=59mL/min/1.73 m2 [facility] S Globulin (S) [Mass/Vol] 3.1 g/dL Normal 1.4 - 4.0 gm/dL [facility] Glucose [Mass/Vol] 88 mg/dL Normal 55 - 199 mg/dL [facility] Potassium [Moles/Vol] 6.5 mmol/L Invalid Interpretation Code 3.5 - 5.3 mmol/L [facility] Protein [Mass/Vol] 6.8 g/dL Normal 6.0 - 7.8 gm/dL [facility] Remisol Sodium [Moles/Vol] 135 mmol/L Normal 135 - 145 mmol/L [facility] Urea nitrogen [Mass/Vol] 26 mg/dL High 5 - 21 mg/dL [facility] Urea nitrogen/Creatinine [Mass ratio] 16 mg/mg Normal 10 - 20 [facility] HEMATOLOGYOrdered By: SYSTEM SYSTEM on 01-21-2022 Basophils/100 WBC (Bld) 0.4 % Normal 0.0 - 2.0 % [facility] HemeAutoSS Basophils/Leukocytes Auto (Bld) [Pure # fraction] 0.0 E9/L Normal 0.0 - 0.2 E9/L [facility] Eosinophils/100 WBC (Bld) 2.3 % Normal 0.0 - 8.0 % [facility]Auto[facility] Eosinophils/Leukocyte s Auto (Bld) [Pure # fraction] 0.2 E9/L Normal 0.0 - 0.5 E9/L [facility] Lymphocytes/100 WBC (Bld) 34.4 % Normal 14.0 - 50.0 % [facility]Auto[facility] Lymphocytes/Leukocyte s Auto (Bld) [Pure # fraction] 2.3 E9/L Normal 1.0 - 4.0 E9/L [facility] Monocytes/100 WBC (Bld) 6.3 % Normal 4.0 - 14.0 % [facility]Auto[facility] Monocytes/Leukocytes Auto (Bld) [Pure # fraction] 0.4 E9/L Normal 0.2 - 1.0 E9/L [facility] Neutrophils/100 WBC (Bld) 56.6 % Normal 36.0 - 75.0 % [facility] Neutrophils/Leukocyte s Auto (Bld) [Pure # fraction] 3.8 E9/L Normal 2.0 - 7.5 E9/L [facility] HEMATOLOGYOrdered By: Viky Roberts on 01-21-2022 Erythrocyte distribution width (RBC) [Ratio] 14.8 % High 10.9 - 14.2 % [facility] Hematocrit (Bld) [Volume fraction] 34.9 % Normal 34.0 - 46.0 % [facility] Hemoglobin (Bld) [Mass/Vol] 11.2 g/dL Low 12.0 - 16.0 gm/dL [facility] MCH (RBC) [Entitic mass] 26.0 pg Low 27.0 - 34.0 pg [facility] MCHC (RBC) [Mass/Vol] 32.0 g/dL Normal 31.4 - 36.0 gm/dL [facility] MCV (RBC) [Entitic vol] 81.2 fL Normal 80.0 - 100.0 fL [facility] Platelet mean volume (Bld) [Entitic vol] 10.1 fL Normal 6.4 - 10.8 fL [facility] Platelets (Bld) [#/Vol] 173.0 E9/L Normal 150.0 - 500.0 E9/L [facility] RBC (Bld) [#/Vol] 4.3 E12/L Normal 4.3 - 5.9 E12/L [facility] HemeAutoSS WBC corrected for nucl RBC Auto (Bld) [#/Vol] 6.8 E9/L Normal 4.0 - 11.0 E9/L [facility] COVID-19 Antigenon 2 COVID-19 Antigen Healthcare Worker?: N Reference Range: Negative Negative results, from patients with symptom onset beyond five days, should be treated as presumptive and confirmation with a molecular assay, if necessary, for patient management, may be performed. Negative results do not rule out COVID-19 and should not be used as the sole basis for treatment or patient management decisions, including infection control decisions. Negative results should be considered in the context of a patient's recent exposures, history and the presence of clinical signs and symptoms consistent with COVID-19. The [place] SARS Antigen ISIDRO does not differentiate between SARS-CoV and SARS-CoV-2. This test was developed and its performance characteristic determined by [employer] and validated at [facility]. This test has not been FDA cleared or approved. This test has been authorized by FDA under an Emergency Use Authorization (EUA). This test has been validated in accordance with the FDA's Guidance Document (Policy for Diagnostics Testing in Laboratories Certified to Perform High Complexity Testing under CLIA prior to Emergency Use Authorization for Coronavirus Disease-2019 during the Public Health Emergency) issued on September 13, 2019. This test is only authorized for the duration of time the declaration that circumstances exist justifying the authorization of the emergency use of in vitro diagnostic tests for detection of SARS-CoV-2 virus and/or diagnosis of COVID-19 infection under section 564(b)(1) of the Act, 21 U.S.C. 360bbb-3(b)(1), unless the authorization is terminated or revoked sooner. SARS-CoV+SARS-CoV-2 (COVID-19) Ag [Presence] in Respiratory specimen by Rapid immunoassay Negative for SARS Antigen by ISIDRO PERFORMED BY: [facility] [place] [address] PATHOLOGIST STRUCTURAL TEST ENGINEER AAKASH GARCES M.D. Normal [facility] Comment on above: Performed By: #### C OVID-19 GARLAND, SOFIANEG #### [facility] [address] [place] [address] COVID-19 SOFIAOrdered By: Jerel Soto on 01-07-2022 SARS-CoV+SARS-CoV-2 (COVID-19) Ag IA.rapid Ql (Resp) Negative Negative [facility] Comment on above: This is a duplicate [place] SARS Antigen (ISIDRO) result to be used for statistical tracking purpose only. No Panel InformationOrdered By: Darryl Soto on 01-07-2022 SARS Antigen (LFIA) [facility] Ag Negativeon 01-08-20 22 [place] Ag Negative Negative Normal Negative [facility] Comment on above: Result Comment: This is a duplicate [place] SARS Antigen (ISIDRO) result to be used for statistical tracking purpose only. PERFORMED BY: [place] [address] PATHOLOGIST STRUCTURAL TEST ENGINEER AAKASH GARCES M.D. Performed By: #### C OVID-19 GARLAND, SOFIANEG #### [facility] [address] [place] [address] RENAL FUNCTION PANELon 11-10 Albumin [Mass/Vol] 3.3 g/dL Critically low 3.4-5.0 [facility] Comment on above: Performed By: #### R ENAL #### [facility] [address] [place] [address] Dr. Agustín Odell Calcium [Mass/Vol] 9.1 mg/dL Normal 8.5-10.1 [facility] Comment on above: Performed By: #### R ENAL #### [facility] [address] [place] [address] Dr. Agustín Odell Chloride [Moles/Vol] 96 mmol/L Critically low 98-107 [facility] Comment on above: Performed By: #### R ENAL #### [facility] [address] [place] [address] Dr. Agustín Odell CO2 [Moles/Vol] 28.4 mmol/L Normal 21.0-32.0 [facility] Comment on above: Performed By: #### R ENAL #### [facility] [address] [address] [address] Agustín Odell Creatinine [Mass/Vol] 1.58 mg/dL Critically high 0.55-1.02 [facility] Comment on above: Performed By: #### R ENAL #### [facility] [address] [address] [address] Agustín Odell EGFR-AF MONTENEGRIN 39 mL/min/1.73m2 Critically low >=60 [facility] Comment on above: Performed By: #### R ENAL #### [facility] [address] [place] [address] Dr. Agustín Odell EGFR-NON AF MONTENEGRIN 32 mL/min/1.73m2 Critically low >=60 [facility] Comment on above: Performed By: #### R ENAL #### [facility] [address] [place] [address] Dr. Agustín Odell Glucose [Mass/Vol] 100 mg/dL Normal 74-106 [facility] Comment on above: Performed By: #### R ENAL #### [facility] [address] [place] [address] Dr. Agustín Odell Phosphate [Mass/Vol] 4.2 mg/dL Normal 2.6-4.7 [facility] Comment on above: Performed By: #### R ENAL #### [facility] [address] [address] [address] Agustín Odell Potassium [Moles/Vol] 5.3 mmol/L Critically high 3.5-5.1 [facility] Comment on above: Performed By: #### R ENAL #### [facility] [address] [place] [address] Dr. Agustín Odell Sodium [Moles/Vol] 131 mmol/L Critically low 136-145 [facility] Comment on above: Performed By: #### R ENAL #### [facility] [address] [place] [address] Dr. Agustín Odell Urea nitrogen [Mass/Vol] 19.0 mg/dL Critically high 7.0-18.0 [facility] Comment on above: Performed By: #### R ENAL #### [facility] [address] [place] [address] Dr. Agustín Odell UA RANDOMon 11-10-2021 Bilirubin Ql (U) Negative Normal NEGATIVE [facility] Comment on above: Performed By: #### U A #### [facility] [address] [address] [address] Agustín Odell Clarity (U) CLEAR Normal CLEAR [facility] Comment on above: Performed By: #### U A #### [facility] [address] [place] [address] Dr. Agustín Odell Color (U) LT. YELLOW Normal YELLOW [facility] Comment on above: Performed By: #### U A #### [facility] [address] [place] [address] Dr. Agustín Odell Glucose Ql (U) Negative Normal NEGATIVE [facility] Comment on above: Performed By: #### U A #### [facility] [address] [place] [address] Dr. Agustín Odell Hemoglobin Ql (U) MODERATE Abnormal NEGATIVE [facility] Comment on above: Performed By: #### U A #### [facility] [address] [place] [address] Dr. Agustín Odell Ketones Ql (U) Negative Normal NEGATIVE [facility] Comment on above: Performed By: #### U A #### [facility] [address] [place] [address] Dr. Agustín Odell LEUKOCYTES LARGE Abnormal NEGATIVE [facility] Comment on above: Performed By: #### U A #### [facility] [address] [place] [address] Dr. Agustín Odell Nitrite Ql (U) Negative Normal NEGATIVE [facility] Comment on above: Performed By: #### U A #### [facility] [address] [place] [address] Dr. Agustín Odell pH (U) 6.0 [pH] Normal 5-9 [facility] Comment on above: Performed By: #### U A #### [facility] [address] [address] [address] Agustín Odell SPEC GRAVITY 1.010 Normal 1.005-<=1.025 [facility] Comment on above: Performed By: #### U A #### [facility] [address] [address] [address] Agustín Odell UA PROTEIN 30 mg/dl Abnormal NEGATIVE/ TRACE [facility] Comment on above: Performed By: #### U A #### [facility] [address] [place] [address] Dr. Agustín Odell Urobilinogen Qn (U) 0.2 {Pop'U}/dL Normal 0.2 - 1. 0 [facility] Comment on above: Performed By: #### U A #### [facility] [address] [place] [address] Dr. Agustín Odell URINE T PROTEIN CREAT RATIOo n 11-10-2021 Protein (U) [Mass/Vol] 44.2 mg/dL Critically high <=12.0 [facility] Comment on above: Performed By: #### U RTPCR #### [facility] [address] [place] [address] Dr. Agustín Odell UR PROT CREAT RAT 0.87 Normal [facility] Comment on above: Performed By: #### U RTPCR #### [facility] [address] [place] [address] Dr. Agustín Odell URINE CREAT 50.86 mg/dL Normal 20.00-300.00 [facility] Comment on above: Performed By: #### U RTPCR #### [facility] [address] [place] [address] Dr. Agustín Odell XR HIP 2-3 VW W PELVIS RIGHT on 04-05-2021 XR HIP 2-3 VW W PELVIS RIGHT HISTORY: Hip fracture. TECHNIQUE: Two views of the right hip were obtained. COMPARISON: 03/06/2021. FINDINGS: There has been open reduction internal fixation of an intratrochanteric hip fracture with an intramedullary jerry and femoral neck screw. The position is satisfactory. There is continued healing of the fracture with the fracture plane still barely visible. There is no complication. IMPRESSION: Stable postoperative changes with continued near complete healing of an intratrochanteric hip fracture. Interpreted by: Anthony Lomas MD Signed by: Anthony Lomas MD 04/05/21 Final result Normal [facility] XR HIP 2-3 VW W PELVIS RIGHT Ordered By: Eugene Michelle on 04-05-2021 Stable postoperative changes with continued near complete healing of an intratrochanteric hip fracture. [employer] Phone: HISTORY: Hip fracture. TECHNIQUE: Two views of the right hip were obtained. COMPARISON: 03/06/2021. FINDINGS: There has been open reduction internal fixation of an intratrochanteric hip fracture with an intramedullary jerry and femoral neck screw. The position is satisfactory. There is continued healing of the fracture with the fracture plane still barely visible. There is no complication. [employer] Phone: Paul, pn Incoming Radiant Results From [employer] - 04/05/2021 2:56 PM EDT HISTORY: Hip fracture. TECHNIQUE: Two views of the right hip were obtained. COMPARISON: 03/06/2021. FINDINGS: There has been open reduction internal fixation of an intratrochanteric hip fracture with an intramedullary jerry and femoral neck screw. The position is satisfactory. There is continued healing of the fracture with the fracture plane still barely visible. There is no complication. IMPRESSION: Stable postoperative changes with continued near complete healing of an intratrochanteric hip fracture. [employer] Phone: [employer] Phone: XR HIP 2-3 VW W PELVIS RIGHT on 03-06-2021 XR HIP 2-3 VW W PELVIS RIGHT EXAM: XR HIP 2-3 VW W PELVIS RIGHT HISTORY: S72.141D Follow up intertrochanteric fracture right hip. COMPARISON: Pelvis and right hip/femur 01/23/2021. TECHNIQUE: AP pelvis and right femur, total 5 images. FINDINGS: Skin jose luis have been removed. The nail in the femoral head and neck and the long intramedullary jerry in the femur fixed distally by a single screw in anatomic alignment. Continued new bone formation about the fracture. Avulsion lesser trochanter unchanged. IMPRESSION: Healing, anatomically aligned internally fixed, right hip fracture. Interpreted by: Adalid Alexander Jr., MD Signed by: Adalid Alexander Jr., MD 03/06/21 Final result Normal [facility] XR HIP 2-3 VW W PELVIS RIGHT on 01-23-2021 XR HIP 2-3 VW W PELVIS RIGHT EXAM: XR HIP 2-3 VW W PELVIS RIGHT. HISTORY: S72.144A. 70-year-old female, follow-up right hip nail. COMPARISON: Preop pelvis 01/08/2021, intraoperative spot films 01/09/2021. TECHNIQUE: AP pelvis and 2 views right hip to include the intramedullary jerry. FINDINGS: The nail in the femoral head and neck and the long intramedullary jerry in the femur fixed distally by a single screw in anatomic alignment. Avulsion lesser trochanter unchanged. Overlying skin jose luis. IMPRESSION: Anatomic alignment internally fixed right hip fracture. Interpreted by: Adalid Alexander Jr., MD Signed by: Adalid Alexander Jr., MD 01/23/21 Final result Normal [facility] XR HIP 2-3 VW W PELVIS RIGHT Ordered By: Eugene Michelle on 01-23-2021 Anatomic alignment internally fixed right hip fracture. [employer] Phone: EXAM: XR HIP 2-3 VW W PELVIS RIGHT. HISTORY: S72.144A. 70-year-old female, follow-up right hip nail. COMPARISON: Preop pelvis 01/08/2021, intraoperative spot films 01/09/2021. TECHNIQUE: AP pelvis and 2 views right hip to include the intramedullary jerry. FINDINGS: The nail in the femoral head and neck and the long intramedullary jerry in the femur fixed distally by a single screw in anatomic alignment. Avulsion lesser trochanter unchanged. Overlying skin jose luis. [employer] Phone: Paul, Mhpn Incoming Radiant Results From [employer] - 01/23/2021 11:29 AM EDT EXAM: XR HIP 2-3 VW W PELVIS RIGHT. HISTORY: S72.144A. 70-year-old female, follow-up right hip nail. COMPARISON: Preop pelvis 01/08/2021, intraoperative spot films 01/09/2021. TECHNIQUE: AP pelvis and 2 views right hip to include the intramedullary jerry. FINDINGS: The nail in the femoral head and neck and the long intramedullary jerry in the femur fixed distally by a single screw in anatomic alignment. Avulsion lesser trochanter unchanged. Overlying skin jose luis. IMPRESSION: Anatomic alignment internally fixed right hip fracture. [employer] Phone: [employer] Phone: Cult,Bloodon 01-17-2021 Cult,Blood Specimen Description .BLOOD Special Requests 10 Culture NO GROWTH 6 DAYS Report Status FINAL 01/17/2021 Normal [facility] Comment on above: Performed By: #### C DP, BMPX #### [facility] [address] [place] [address] Certified Neurodiagnostic Technologist: Darryl Granger MD COVID-19, RapidOrdered By: Barbara wray Back on 01-14-2021 SARS-CoV-2 (COVID-19) RNA MARTIN+probe Ql (Unsp spec) Not detected Not Detected [employer] Phone: Comment on above: Rapid NAAT: The specimen is NEGATIVE for SARS-CoV-2, the novel coronavirus associated with COVID-19. The ID NOW COVID-19 assay is designed to detect the virus that causes COVID-19 in patients with signs and symptoms of infection who are suspected of COVID-19. An individual without symptoms of COVID-19 and who is not shedding SARS-CoV-2 virus would expect to have a negative (not detected) result in this assay. Negative results should be treated as presumptive and, if inconsistent with clinical signs and symptoms or necessary for patient management, should be tested with an alternative molecular assay. Negative results do not preclude SARS-CoV-2 infection and should not be used as the sole basis for patient management decisions. Fact sheet for Healthcare Providers: https://www.fda.gov/media/873318/download Fact sheet for Patients: https://www.fda.gov/media/397077/download Methodology: Isothermal Nucleic Acid Amplification Specimen Description .NASOPHARYNGEAL SWAB [employer] Phone: [employer] Phone: Hemoglobin and hematocrit, b loodOrdered By: Aurelio Saldana on 01-14-2021 Hematocrit (Bld) [Volume fraction] 25.7 % Low 36 - 46 % [employer] Phone: Hemoglobin.gastrointe stinal spec 1 Ql (Stl) 8.3 g/dL Low 12.0 - 16.0 g/dL [employer] Phone: Interpretation and review of laboratory results Abnormal [employer] Phone: [employer] Phone: Hgb/Hcton 01-14-2021 Hematocrit (Bld) [Volume fraction] 25.7 % Low 36-46 [facility] Comment on above: Performed By: #### H H #### [facility] [address] [place] [address] Certified Neurodiagnostic Technologist: Darryl Granger MD Hemoglobin (Bld) [Mass/Vol] 8.3 g/dL Low 12.0-16.0 [facility] Comment on above: Performed By: #### H H #### [facility] [address] [place] [address] Certified Neurodiagnostic Technologist: Darryl Granger MD [id number] 01-14-2021 SARS-CoV-2 (COVID-19) RNA MARTIN+probe Ql (Unsp spec) Not detected Normal NOTDET [facility] Comment on above: Result Comment: Rapid NAAT: The specimen is NEGATIVE for SARS-CoV-2, the novel coronavirus associated with COVID-19. The ID NOW COVID-19 assay is designed to detect the virus that causes COVID-19 in patients with signs and symptoms of infection who are suspected of COVID-19. An individual without symptoms of COVID-19 and who is not shedding SARS-CoV-2 virus would expect to have a negative (not detected) result in this assay. Negative results should be treated as presumptive and, if inconsistent with clinical signs and symptoms or necessary for patient management, should be tested with an alternative molecular assay. Negative results do not preclude SARS-CoV-2 infection and should not be used as the sole basis for patient management decisions. Fact sheet for Healthcare Providers: https://www.fda.gov/media/207096/download Fact sheet for Patients: https://www.fda.gov/media/479383/download Methodology: Isothermal Nucleic Acid Amplification Performed By: #### C DP, BMPX #### [facility] [address] [place] [address] Certified Neurodiagnostic Technologist: Darryl Granger MD Basic Metabolic PanelOrdered By: Aurelio Saldana on 01-13-2021 Anion gap [Moles/Vol] 3 mmol/L Low 9 - 17 mmol/L [employer] Phone: Calcium [Mass/Vol] 8.3 mg/dL Low 8.6 - 10.4 mg/dL [employer] Phone: Chloride [Moles/Vol] 101 mmol/L 98 - 107 mmol/L [employer] Phone: CO2 [Moles/Vol] 31 mmol/L 20 - 31 mmol/L [employer] Phone: Creatinine [Mass/Vol] 1.11 mg/dL High 0.50 - 0.90 mg/dL [employer] Phone: GFR 59 mL/min Low >60 [employer] Phone: GFR Non- 48 mL/min Low >60 [employer] Phone: GFR/1.73 sq M.predicted MDRD (S/P/Bld) [Vol rate/Area] [employer] Phone: Comment on above: Average GFR for 70 o r more years old: 75 mL/min/1.73sq m Chronic Kidney Disease: <60 mL/min/1.73sq m Kidney failure: <15 mL/min/1.73sq m eGFR calculated using average adult body mass. Additional eGFR calculator available at: http://www.[employer]/multiple_crcl_2012.htm GFR/1.73 sq M.predicted MDRD (S/P/Bld) [Vol rate/Area] NOT REPORTED [employer] Phone: Glucose [Mass/Vol] 104 mg/dL High 70 - 99 mg/dL [facility] [employer] Work Phone: Interpretation and review of laboratory results Abnormal [facility]: Potassium [Moles/Vol] 4.8 mmol/L 3.7 - 5.3 mmol /L [facility]: Sodium [Moles/Vol] 135 mmol/L 135 - 144 mmol/L [facility]: Urea nitrogen (BldV) [Mass/Vol] 16 mg/dL 8 - 23 mg/dL [facility] Phone: Urea nitrogen/Creatinine (Bld) [Mass ratio] 14 [facility] Phone: [employer] Phone: Basic Metabolic Profon 01-13 (cont.) Normal [facility] Comment on above: Result Comment: Aver age GFR for 70 or more years old: 75 mL/min/1.73sq m Chronic Kidney Disease: <60 mL/min/1.73sq m Kidney failure: <15 mL/min/1.73sq m eGFR calculated using average adult body mass. Additional eGFR calculator available at: http://www.[employer]/multiple_crcl_2012.htm Performed By: #### C ALLYSON, BMP #### [facility] [address] [place] [address] Certified Neurodiagnostic Technologist: Darryl Granger MD Anion gap [Moles/Vol] 3 mmol/L Low 9-[address] [facility] Comment on above: Performed By: #### C ALLYSON, BMP #### [facility] [address] [place], [place] [phone] Certified Neurodiagnostic Technologist: Darryl Granger MD BUN/CRE Ratio 14 Normal 9-20 [facility] Comment on above: Performed By: #### C DP, BMP #### [facility] [address] [place], [place] [phone] Certified Neurodiagnostic Technologist: Darryl Granger MD Calcium [Mass/Vol] 8.3 mg/dL Low 8.6-10.4 [facility] Comment on above: Performed By: #### C DP, BMP #### [facility] [address] [place], [place] [phone] Certified Neurodiagnostic Technologist: Darryl Granger MD Chloride [Moles/Vol] 101 mmol/L Normal 98-107 [facility] Comment on above: Performed By: #### C DP, BMP #### [facility] [address] [place] [address] Certified Neurodiagnostic Technologist: Darryl Granger MD CO2 [Moles/Vol] 31 mmol/L Normal 20-31 [facility] Comment on above: Performed By: #### C DP, BMP #### [facility] [address] [place], [place] [phone] Certified Neurodiagnostic Technologist: Darryl Granger MD Creatinine [Mass/Vol] 1.11 mg/dL High 0.50-0.[address] [facility] Comment on above: Performed By: #### C DP, BMP #### [facility] [address] [place], [place] [phone] Certified Neurodiagnostic Technologist: Darryl Granger MD GFR, Amer 59 mL/min Low >60 [facility] Comment on above: Performed By: #### C DP, BMP #### [facility] [address] [place], [place] [phone] Certified Neurodiagnostic Technologist: Darryl Granger MD GFR,non Amer 48 mL/min Low >60 [facility] Comment on above: Performed By: #### C DP, BMP #### [facility] [address] [place], [place] [phone] Certified Neurodiagnostic Technologist: Darryl Granger MD Glucose [Mass/Vol] 104 mg/dL High 70-99 [facility] Comment on above: Performed By: #### C DP, BMP #### [facility] [address] [place], [place] [phone] Certified Neurodiagnostic Technologist: Darryl Granger MD Potassium [Moles/Vol] 4.8 mmol/L Normal 3.7-5.[address] [facility] Comment on above: Performed By: #### C DP, BMP #### [facility] [address] [place], [place] [phone] Certified Neurodiagnostic Technologist: Darryl Granger MD Sodium [Moles/Vol] 135 mmol/L Normal 135-144 [facility] Comment on above: Performed By: #### C DP, BMP #### [facility] [address] [place], [place] [phone] Certified Neurodiagnostic Technologist: Darryl Granger MD Urea nitrogen [Mass/Vol] 16 mg/dL Normal 8-23 [facility] Comment on above: Performed By: #### C DP, BMP #### [facility] [address] [place], [place] [phone] Certified Neurodiagnostic Technologist: Darryl Granger MD Staging: NOT REPORTED Normal [facility] Comment on above: Performed By: #### C DP, BMP #### [facility] [address] [place], [place] [phone] Certified Neurodiagnostic Technologist: Darryl Granger MD CBC Auto DifferentialOrdered By: Aurelio Saldana on 01-13-2021 [employer] # 0.10 [facility] Work Phone: Absolute Immature Granulocyte NOT REPORTED [facility] Work Phone: Absolute Lymph # 1.10 [facility] Work Phone: Absolute [place] # 0.70 [employer] Work Phone: Basophils (Bld) [#/Vol] 0.00 10*3/uL [employer] Work Phone: Basophils/100 WBC (Bld) 0 % 0 - 2 % [employer] Work Phone: Differential Type YES [employer] Work Phone: Eosinophils/100 WBC (Bld) 1 % 0 - 5 % [employer] Work Phone: Hematocrit (Bld) [Volume fraction] 25.3 % Low 36 - 46 % [employer] Work Phone: Hemoglobin.gastrointe stinal spec 1 Ql (Stl) 8.3 g/dL Low 12.0 - 16.0 g/dL [employer] Phone: Immature Granulocytes NOT REPORTED 0 % M [employer] Work Phone: Interpretation and review of laboratory results Abnormal [employer] Phone: Lymphocytes/100 WBC (Bld) 13 % Low 15 - 40 % [employer] Phone: MCH (RBC) [Entitic mass] 27.4 pg 26 - 34 pg [employer] Phone: MCHC (RBC) [Mass/Vol] 32.9 g/dL 31 - 37 g/dL [facility] [employer] Work Phone: MCV (RBC) [Entitic vol] 83.5 fL 80 - 100 fL [employer] Phone: Monocytes/100 WBC (Bld) 9 % High 4 - 8 % [employer] Phone: NRBC Automated NOT REPORTED per 100 WBC [employer] Work Phone: Platelet distribution width (Bld) [Ratio] 18.7 % High 12.1 - 15.2 % [employer] Work Phone: Platelet Estimate NOT REPORTED [employer] Phone: Platelet mean volume (Bld) [Entitic vol] NOT REPORTED 6.0 - 12.0 fL [employer] Work Phone: Platelets (Bld) [#/Vol] 124 10*3/uL Low [facility] Phone: RBC (Bld) [#/Vol] 3.03 10*6/uL Low 4.0 - 5.2 m/uL [facility] Work Phone: RBC (Bld) [#/Vol] NOT REPORTED [employer] Phone: Segmented neutrophils/100 WBC (Bld) 77 % High 47 - 75 % [employer] Phone: Segs Absolute 6.60 [employer] Work Phone: WBC (Bld) [#/Vol] 8.4 10*3/uL [employer] Work Phone: WBC (Bld) [#/Vol] NOT REPORTED [employer] Phone: [employer] Work Phone: CBC with Diffon 01-13-2021 Abs. Basophil 0.00 k/uL Normal 0.0-0.2 [facility] Comment on above: Performed By: #### C DP, BMP #### [facility] [address] [place] [address] Certified Neurodiagnostic Technologist: Darryl Granger MD Abs.Neutrophil (Seg) 6.60 k/uL Normal 2.5-7.0 [facility] Comment on above: Performed By: #### C DP, BMP #### [facility] [address] [place] [address] Certified Neurodiagnostic Technologist: Darryl Granger MD Auto Diff Performed YES Normal [facility] Comment on above: Performed By: #### C DP, BMP #### [facility] [address] [place], [place] [phone] Certified Neurodiagnostic Technologist: Darryl Granger MD Basophils/100 WBC (Bld) 0 % Normal 0-2 [facility] Comment on above: Performed By: #### C DP, BMP #### [facility] [address] [place], [place] [phone] Certified Neurodiagnostic Technologist: Darryl Granger MD Eosinophils (Bld) [#/Vol] 0.10 10*3/uL Normal 0.0-0.4 [facility] Comment on above: Performed By: #### C DP, BMP #### [facility] [address] [place], [place] [phone] Certified Neurodiagnostic Technologist: Darryl Granger MD Eosinophils/100 WBC (Bld) 1 % Normal 0-5 [facility] Comment on above: Performed By: #### C DP, BMP #### [facility] [address] [place], [place] [phone] Certified Neurodiagnostic Technologist: Darryl Granger MD Erythrocyte distribution width (RBC) [Ratio] 18.7 % High 12.1-15.2 [facility] Comment on above: Performed By: #### C DP, BMP #### [facility] [address] [place], [place] [phone] Certified Neurodiagnostic Technologist: Darryl Granger MD Hematocrit (Bld) [Volume fraction] 25.3 % Low 36-46 [facility] Comment on above: Performed By: #### C DP, BMP #### [facility] [address] [place], [place] [phone] Certified Neurodiagnostic Technologist: Darryl Granger MD Hemoglobin (Bld) [Mass/Vol] 8.3 g/dL Low 12.0-16.0 [facility] Comment on above: Performed By: #### C DP, BMP #### [facility] [address] [place] [address] Certified Neurodiagnostic Technologist: Darryl Granger MD Lymphocytes (Bld) [#/Vol] 1.10 10*3/uL Normal 1.0-4.8 [facility] Comment on above: Performed By: #### C DP, BMP #### [facility] [address] [place], [place] [phone] Certified Neurodiagnostic Technologist: Darryl Granger MD Lymphocytes/100 WBC (Bld) 13 % Low 15-40 [facility] Comment on above: Performed By: #### C DP, BMP #### [facility] [address] [place] [phone] Certified Neurodiagnostic Technologist: Darryl Granger MD MCH (RBC) [Entitic mass] 27.4 pg Normal 26-34 [facility] Comment on above: Performed By: #### C DP, BMP #### [facility] [address] [place] [address] Certified Neurodiagnostic Technologist: Darryl Granger MD MCHC (RBC) [Mass/Vol] 32.9 g/dL Normal 31-[address] [facility] Comment on above: Performed By: #### C DP, BMP #### [facility] [address] [place] [phone] Certified Neurodiagnostic Technologist: Darryl Granger MD MCV (RBC) [Entitic vol] 83.5 fL Normal 80-100 [facility] Comment on above: Performed By: #### C DP, BMP #### [facility] [address] [place] [phone] [phone] Certified Neurodiagnostic Technologist: Darryl Granger MD Monocytes (Bld) [#/Vol] 0.70 10*3/uL Normal 0.0-1.0 [facility] Comment on above: Performed By: #### C DP, BMP #### [facility] [address] [place] [address] Certified Neurodiagnostic Technologist: Darryl Granger MD Monocytes/100 WBC (Bld) 9 % High 4-8 [facility] Comment on above: Performed By: #### C DP, BMP #### [facility] [address] [place] [address] Certified Neurodiagnostic Technologist: Darryl Granger MD Neutrophil (Seg) 77 % High 47-75 [facility] Comment on above: Performed By: #### C DP, BMP #### [facility] [address] [place] [phone] Certified Neurodiagnostic Technologist: Darryl Granger MD Platelets (Bld) [#/Vol] 124 10*3/uL Low 140-450 [facility] Comment on above: Performed By: #### C DP, BMP #### [facility] [address] [place] [address] Certified Neurodiagnostic Technologist: Darryl Granger MD RBC (Bld) [#/Vol] 3.03 10*6/uL Low 4.0-5.2 [facility] Comment on above: Performed By: #### C DP, BMP #### [facility] [address] [place] [address] Certified Neurodiagnostic Technologist: Darryl Granger MD WBC (Bld) [#/Vol] 8.4 10*3/uL Normal 3.5-11.0 [facility] Comment on above: Performed By: #### C DP, BMP #### [facility] [address] [place] [phone] Certified Neurodiagnostic Technologist: Darryl Granger MD Abs.Imm.Granulocyte NOT REPORTED Normal 0.00-0.[address] [facility] Comment on above: Performed By: #### C DP, BMP #### [facility] [address] [place] [address] Certified Neurodiagnostic Technologist: Darryl Granger MD Immature Granulocyte NOT REPORTED Normal 0 [facility] Comment on above: Performed By: #### C DP, BMP #### [facility] [address] [place] [phone] Certified Neurodiagnostic Technologist: Darryl Granger MD MPV NOT REPORTED Normal 6.0-12.0 [facility] Comment on above: Performed By: #### C DP, BMP #### [facility] [address] [place], [place] [phone] Certified Neurodiagnostic Technologist: Darryl Granger MD NRBC Automated NOT REPORTED Normal [facility] Comment on above: Performed By: #### C DP, BMP #### [facility] [address] [place] [address] Certified Neurodiagnostic Technologist: Darryl Granger MD Platelet Estimate NOT REPORTED Normal [facility] Comment on above: Performed By: #### C DP, BMP #### [facility] [address] [place], [place] [phone] Certified Neurodiagnostic Technologist: Darryl Granger MD RBC morphology finding Nom (Bld) NOT REPORTED Normal [facility] Comment on above: Performed By: #### C DP, BMP #### [facility] [address] [place] [address] Certified Neurodiagnostic Technologist: Darryl Granger MD WBC Morphology NOT REPORTED Normal [facility] Comment on above: Performed By: #### C DP, BMP #### [facility] [address] [place] [address] Certified Neurodiagnostic Technologist: Darryl Granger MD Basic Metabolic PanelOrdered By: Aurelio Saldana on 01-12-2021 Anion gap [Moles/Vol] 5 mmol/L Low 9 - 17 mmol/L [employer] Phone: Calcium [Mass/Vol] 8.2 mg/dL Low 8.6 - 10.4 mg/dL [employer] Phone: Chloride [Moles/Vol] 104 mmol/L 98 - 107 mmol/L [employer] Phone: CO2 [Moles/Vol] 26 mmol/L 20 - 31 mmol/L [facility] Work Phone: Creatinine [Mass/Vol] 1.18 mg/dL High 0.50 - 0.90 mg/dL [employer] Phone: GFR 55 mL/min Low >60 [employer] Phone: GFR Non- 45 mL/min Low >60 [facility] Phone: GFR/1.73 sq M.predicted MDRD (S/P/Bld) [Vol rate/Area] [employer] Phone: Comment on above: Average GFR for 70 o r more years old: 75 mL/min/1.73sq m Chronic Kidney Disease: <60 mL/min/1.73sq m Kidney failure: <15 mL/min/1.73sq m eGFR calculated using average adult body mass. Additional eGFR calculator available at: http://www.[employer]/multiple_crcl_2012.htm GFR/1.73 sq M.predicted MDRD (S/P/Bld) [Vol rate/Area] NOT REPORTED [facility] Phone: Glucose [Mass/Vol] 97 mg/dL 70 - 99 mg/dL [facility] [employer] Phone: Interpretation and review of laboratory results Abnormal [facility] Phone: Potassium [Moles/Vol] 4.6 mmol/L 3.7 - 5.3 mmol /L [facility] Phone: Sodium [Moles/Vol] 135 mmol/L 135 - 144 mmol/L [facility] Phone: Urea nitrogen (BldV) [Mass/Vol] 18 mg/dL 8 - 23 mg/dL [employer] Phone: Urea nitrogen/Creatinine (Bld) [Mass ratio] 15 [employer] Phone: [employer] Phone: Basic Metabolic Profon 01-12 (cont.) Normal [facility] Comment on above: Result Comment: Aver age GFR for 70 or more years old: 75 mL/min/1.73sq m Chronic Kidney Disease: <60 mL/min/1.73sq m Kidney failure: <15 mL/min/1.73sq m eGFR calculated using average adult body mass. Additional eGFR calculator available at: http://www.Citrix Online/multiple_crcl_2011.htm Performed By: #### C DP, BMPX #### [facility] [address], [place] [phone] Certified Neurodiagnostic Technologist: Darryl Granger MD Anion gap [Moles/Vol] 5 mmol/L Low 9-[address] [facility] Comment on above: Performed By: #### C DP, BMPX #### [facility] [address], [place] [phone] Certified Neurodiagnostic Technologist: Darryl Granger MD BUN/CRE Ratio 15 Normal 9-20 [facility] Comment on above: Performed By: #### C DP, BMPX #### [facility] [address], [place] [phone] Certified Neurodiagnostic Technologist: Darryl Granger MD Calcium [Mass/Vol] 8.2 mg/dL Low 8.6-10.4 [facility] Comment on above: Performed By: #### C DP, BMPX #### [facility] [address], [place] [phone] Certified Neurodiagnostic Technologist: Darryl Granger MD Chloride [Moles/Vol] 104 mmol/L Normal 98-107 [facility] Comment on above: Performed By: #### C DP, BMPX #### [facility] [address] [place] [address] Certified Neurodiagnostic Technologist: Darryl Granger MD CO2 [Moles/Vol] 26 mmol/L Normal 20-31 [facility] Comment on above: Performed By: #### C DP, BMPX #### [facility] [address], [place] [phone] Certified Neurodiagnostic Technologist: Darryl Granger MD Creatinine [Mass/Vol] 1.18 mg/dL High 0.50-0.[address] [facility] Comment on above: Performed By: #### C DP, BMPX #### [facility] [address], [place] [phone] Certified Neurodiagnostic Technologist: Darryl Granger MD GFR, Amer 55 mL/min Low >60 [facility] Comment on above: Performed By: #### C DP, BMPX #### [facility] [address], [place] [phone] Certified Neurodiagnostic Technologist: Darryl Granger MD GFR,non Amer 45 mL/min Low >60 [facility] Comment on above: Performed By: #### C DP, BMPX #### [facility] [address], [place] [phone] Certified Neurodiagnostic Technologist: Darryl Granger MD Glucose [Mass/Vol] 97 mg/dL Normal 70-99 [facility] Comment on above: Performed By: #### C DP, BMPX #### [facility] [address], [place] [phone] Certified Neurodiagnostic Technologist: Darryl Granger MD Potassium [Moles/Vol] 4.6 mmol/L Normal 3.7-5.[address] [facility] Comment on above: Performed By: #### C DP, BMPX #### [facility] [address], [place] [phone] Certified Neurodiagnostic Technologist: Daryrl Granger MD Sodium [Moles/Vol] 135 mmol/L Normal 135-144 [facility] Comment on above: Performed By: #### C DP, BMPX #### [facility] [address], [place] [phone] Certified Neurodiagnostic Technologist: Darryl Granger MD Urea nitrogen [Mass/Vol] 18 mg/dL Normal 8-23 [facility] Comment on above: Performed By: #### C DP, BMPX #### [facility] [address] [place] [address] Certified Neurodiagnostic Technologist: Darryl Granger MD Staging: NOT REPORTED Normal [facility] Comment on above: Performed By: #### C DP, BMPX #### [facility] [address] [place] [address] Certified Neurodiagnostic Technologist: Darryl Granger MD CBC Auto DifferentialOrdered By: Aurelio Saldana on 01-12-2021 [employer] # 0.00 [facility] Work Phone: Absolute Immature Granulocyte NOT REPORTED [facility] Work Phone: Absolute Lymph # 1.20 [facility] Work Phone: Absolute [place] # 0.90 [facility] Work Phone: Basophils (Bld) [#/Vol] 0.00 10*3/uL [facility] Work Phone: Basophils/100 WBC (Bld) 0 % 0 - 2 % [facility] Work Phone: Differential Type YES [facility] Work Phone: Eosinophils/100 WBC (Bld) 0 % 0 - 5 % [facility] Work Phone: Hematocrit (Bld) [Volume fraction] 26.5 % Low 36 - 46 % [facility] Work Phone: Hemoglobin.gastrointe stinal spec 1 Ql (Stl) 8.8 g/dL Low 12.0 - 16.0 g/dL [facility] Work Phone: Immature Granulocytes NOT REPORTED 0 % [facility] system[facility] Work Phone: Interpretation and review of laboratory results Abnormal [facility] Work Phone: Lymphocytes/100 WBC (Bld) 11 % Low 15 - 40 % [employer] Work Phone: MCH (RBC) [Entitic mass] 27.3 pg 26 - 34 pg [facility] Work Phone: MCHC (RBC) [Mass/Vol] 33.2 g/dL 31 - 37 g/dL M [employer] Work Phone: MCV (RBC) [Entitic vol] 82.2 fL 80 - 100 fL [facility] Work Phone: Monocytes/100 WBC (Bld) 8 % 4 - 8 % [employer] Work Phone: NRBC Automated NOT REPORTED per 100 WBC [employer] Work Phone: Platelet distribution width (Bld) [Ratio] 18.7 % High 12.1 - 15.2 % [employer] Work Phone: Platelet Estimate NOT REPORTED [employer] Work Phone: Platelet mean volume (Bld) [Entitic vol] NOT REPORTED 6.0 - 12.0 fL [employer] Work Phone: Platelets (Bld) [#/Vol] 114 10*3/uL Low [employer] Work Phone: RBC (Bld) [#/Vol] 3.23 10*6/uL Low 4.0 - 5.2 m/uL [facility] [employer] Work Phone: RBC (Bld) [#/Vol] NOT REPORTED [employer] Work Phone: Segmented neutrophils/100 WBC (Bld) 81 % High 47 - 75 % [facility] Work Phone: Segs [employer] 8.90 [employer] Work Phone: WBC (Bld) [#/Vol] 10.9 10*3/uL [employer] Work Phone: WBC (Bld) [#/Vol] NOT REPORTED [employer] Work Phone: [facility] Work Phone: CBC with Diffon 01-12-2021 Abs. Basophil 0.00 k/uL Normal 0.0-0.2 [facility] Comment on above: Performed By: #### C DP, BMPX #### [facility] [address], [place] [phone] Certified Neurodiagnostic Technologist: Darryl Granger MD Abs.Neutrophil (Seg) 8.90 k/uL High 2.5-7.0 [facility] Comment on above: Performed By: #### C DP, BMPX #### [facility] [address], [place] [phone] Certified Neurodiagnostic Technologist: Darryl Granger MD Auto Diff Performed YES Normal [facility] Comment on above: Performed By: #### C DP, BMPX #### [facility] [address] [place] [phone] Certified Neurodiagnostic Technologist: Darryl Granger MD Basophils/100 WBC (Bld) 0 % Normal 0-2 [facility] Comment on above: Performed By: #### C DP, BMPX #### [facility] [address], [place] [phone] Certified Neurodiagnostic Technologist: Darryl Granger MD Eosinophils (Bld) [#/Vol] 0.00 10*3/uL Normal 0.0-0.4 [facility] Comment on above: Performed By: #### C DP, BMPX #### [facility] [address], [place] [phone] Certified Neurodiagnostic Technologist: Darryl Granger MD Eosinophils/100 WBC (Bld) 0 % Normal 0-5 [facility] Comment on above: Performed By: #### C DP, BMPX #### [facility] [address], [place] [phone] Certified Neurodiagnostic Technologist: Darryl Granger MD Erythrocyte distribution width (RBC) [Ratio] 18.7 % High 12.1-15.2 [facility] Comment on above: Performed By: #### C DP, BMPX #### [facility] [address] [place] [address] Certified Neurodiagnostic Technologist: Darryl Granger MD Hematocrit (Bld) [Volume fraction] 26.5 % Low 36-46 [facility] Comment on above: Performed By: #### C DP, BMPX #### [facility] [address] [place] [phone] Certified Neurodiagnostic Technologist: Darryl Granger MD Hemoglobin (Bld) [Mass/Vol] 8.8 g/dL Low 12.0-16.0 [facility] Comment on above: Performed By: #### C DP, BMPX #### [facility] [address] [place] [address] Certified Neurodiagnostic Technologist: Darryl Granger MD Lymphocytes (Bld) [#/Vol] 1.20 10*3/uL Normal 1.0-4.8 [facility] Comment on above: Performed By: #### C DP, BMPX #### [facility] [address] [place] [address] Certified Neurodiagnostic Technologist: Darryl Granger MD Lymphocytes/100 WBC (Bld) 11 % Low 15-40 [facility] Comment on above: Performed By: #### C DP, BMPX #### [facility] [address] [place] [phone] Certified Neurodiagnostic Technologist: Darryl Granger MD MCH (RBC) [Entitic mass] 27.3 pg Normal 26-34 [facility] Comment on above: Performed By: #### C DP, BMPX #### [facility] [address] [place] [address] Certified Neurodiagnostic Technologist: Darryl Granger MD MCHC (RBC) [Mass/Vol] 33.2 g/dL Normal 31-[address] [facility] Comment on above: Performed By: #### C DP, BMPX #### [facility] [address] [place] [address] Certified Neurodiagnostic Technologist: Darryl Granger MD MCV (RBC) [Entitic vol] 82.2 fL Normal 80-100 [facility] Comment on above: Performed By: #### C DP, BMPX #### [facility] [address] [place] [address] Certified Neurodiagnostic Technologist: Darryl Granger MD Monocytes (Bld) [#/Vol] 0.90 10*3/uL Normal 0.0-1.0 [facility] Comment on above: Performed By: #### C DP, BMPX #### [facility] [address] [place] [address] Certified Neurodiagnostic Technologist: Darryl Granger MD Monocytes/100 WBC (Bld) 8 % Normal 4-8 [facility] Comment on above: Performed By: #### C DP, BMPX #### [facility] [address] [place] [address] Certified Neurodiagnostic Technologist: Darryl Granger MD Neutrophil (Seg) 81 % High 47-75 [facility] Comment on above: Performed By: #### C DP, BMPX #### [facility] [address] [place] [address] Certified Neurodiagnostic Technologist: Darryl Granger MD Platelets (Bld) [#/Vol] 114 10*3/uL Low 140-450 [facility] Comment on above: Performed By: #### C DP, BMPX #### [facility] [address] [place] [address] Certified Neurodiagnostic Technologist: Darryl Granger MD RBC (Bld) [#/Vol] 3.23 10*6/uL Low 4.0-5.2 [facility] Comment on above: Performed By: #### C DP, BMPX #### [facility] [address] [place] [address] Certified Neurodiagnostic Technologist: Darryl Granger MD WBC (Bld) [#/Vol] 10.9 10*3/uL Normal 3.5-11.0 [facility] Comment on above: Performed By: #### C DP, BMPX #### [facility] [address], [place] [phone] Certified Neurodiagnostic Technologist: Darryl Granger MD Abs.Imm.Granulocyte NOT REPORTED Normal 0.00-0.[address] [facility] Comment on above: Performed By: #### C DP, BMPX #### [facility] [address], [place] [phone] Certified Neurodiagnostic Technologist: Darryl Granger MD Immature Granulocyte NOT REPORTED Normal 0 [facility] Comment on above: Performed By: #### C DP, BMPX #### [facility] [address] [place] [address] Certified Neurodiagnostic Technologist: Darryl Granger MD MPV NOT REPORTED Normal 6.0-12.0 [facility] Comment on above: Performed By: #### C DP, BMPX #### [facility] [address] [place] [address] Certified Neurodiagnostic Technologist: Darryl Granger MD NRBC Automated NOT REPORTED Normal [facility] Comment on above: Performed By: #### C DP, BMPX #### [facility] [address], [place] [phone] Certified Neurodiagnostic Technologist: Darryl Granger MD Platelet Estimate NOT REPORTED Normal [facility] Comment on above: Performed By: #### C DP, BMPX #### [facility] [address] [place] [address] Certified Neurodiagnostic Technologist: Darryl Granger MD RBC morphology finding Nom (Bld) NOT REPORTED Normal [facility] Comment on above: Performed By: #### C DP, BMPX #### [facility] [address] [place] [address] Certified Neurodiagnostic Technologist: Darryl Granger MD WBC Morphology NOT REPORTED Normal [facility] Comment on above: Performed By: #### C DP, BMPX #### [facility] [address] [place] [address] Certified Neurodiagnostic Technologist: Darryl Granger MD Basic Metabolic PanelOrdered By: Eugene Michelle on 01-11-2021 Anion gap [Moles/Vol] 3 mmol/L Low 9 - 17 mmol/L [employer] Phone: Calcium [Mass/Vol] 7.9 mg/dL Low 8.6 - 10.4 mg/dL [employer] Phone: Chloride [Moles/Vol] 108 mmol/L High 98 - 107 mmol/L [employer] Phone: CO2 [Moles/Vol] 26 mmol/L 20 - 31 mmol/L [employer] Phone: Creatinine [Mass/Vol] 1.35 mg/dL High 0.50 - 0.90 mg/dL [employer] Phone: GFR 47 mL/min Low >60 [employer] Phone: GFR Non- 39 mL/min Low >60 [employer] Phone: GFR/1.73 sq M.predicted MDRD (S/P/Bld) [Vol rate/Area] [employer] Phone: Comment on above: Average GFR for 70 o r more years old: 75 mL/min/1.73sq m Chronic Kidney Disease: <60 mL/min/1.73sq m Kidney failure: <15 mL/min/1.73sq m eGFR calculated using average adult body mass. Additional eGFR calculator available at: http://www.Egnyte.[employer]ener[employer] Sciences/multiple_crcl_2012.htm GFR/1.73 sq M.predicted MDRD (S/P/Bld) [Vol rate/Area] NOT REPORTED [employer] Phone: Glucose [Mass/Vol] 102 mg/dL High 70 - 99 mg/dL [facility] Phone: Interpretation and review of laboratory results Abnormal [facility] Phone: Potassium [Moles/Vol] 4.8 mmol/L 3.7 - 5.3 mmol /L [facility] Phone: Sodium [Moles/Vol] 137 mmol/L 135 - 144 mmol/L [facility] Phone: Urea nitrogen (BldV) [Mass/Vol] 19 mg/dL 8 - 23 mg/dL [facility] Phone: Urea nitrogen/Creatinine (Bld) [Mass ratio] 14 [facility] Phone: Basic Metabolic Profon 01-11 (cont.) Normal [facility] Comment on above: Result Comment: Aver age GFR for 70 or more years old: 75 mL/min/1.73sq m Chronic Kidney Disease: <60 mL/min/1.73sq m Kidney failure: <15 mL/min/1.73sq m eGFR calculated using average adult body mass. Additional eGFR calculator available at: http://www.Citrix Online/multiple_crcl_2011.htm Performed By: #### H H #### [facility] [address] [place] [address] Certified Neurodiagnostic Technologist: Darryl Granger MD Anion gap [Moles/Vol] 3 mmol/L Low 9-[address] [facility] Comment on above: Performed By: #### H H #### [facility] [address] [place] [address] Certified Neurodiagnostic Technologist: Darryl Granger MD BUN/CRE Ratio 14 Normal [facility] Comment on above: Performed By: #### H H #### [facility] [address] [place] [address] Certified Neurodiagnostic Technologist: Darryl Granger MD Calcium [Mass/Vol] 7.9 mg/dL Low 8.6-10.4 [facility] Comment on above: Performed By: #### H H #### [facility] [address] [place] [address] Certified Neurodiagnostic Technologist: Darryl Granger MD Chloride [Moles/Vol] 108 mmol/L High 98-107 [facility] Comment on above: Performed By: #### H H #### [facility] [address], [place] [phone] Certified Neurodiagnostic Technologist: Darryl Granger MD CO2 [Moles/Vol] 26 mmol/L Normal 20-31 [facility] Comment on above: Performed By: #### H H #### [facility] [address], [place] [phone] Certified Neurodiagnostic Technologist: Darryl Granger MD Creatinine [Mass/Vol] 1.35 mg/dL High 0.50-0.[address] [facility] Comment on above: Performed By: #### H H #### [facility] [address], [place] [phone] Certified Neurodiagnostic Technologist: Darryl Granger MD GFR, Amer 47 mL/min Low >60 [facility] Comment on above: Performed By: #### H H #### [facility] [address] [place] [address] Certified Neurodiagnostic Technologist: Darryl Granger MD GFR,non Amer 39 mL/min Low >60 [facility] Comment on above: Performed By: #### H H #### [facility] [address] [place] [address] Certified Neurodiagnostic Technologist: Darryl Granger MD Glucose [Mass/Vol] 102 mg/dL High 70-99 [facility] Comment on above: Performed By: #### H H #### [facility] [address] [place] [address] Certified Neurodiagnostic Technologist: Darryl Granger MD Potassium [Moles/Vol] 4.8 mmol/L Normal 3.7-5.[address] [facility] Comment on above: Performed By: #### H H #### [facility] [address] [place] [address] Certified Neurodiagnostic Technologist: Darryl Granger MD Sodium [Moles/Vol] 137 mmol/L Normal 135-144 [facility] Comment on above: Performed By: #### H H #### [facility] [address], [place] [phone] Certified Neurodiagnostic Technologist: Darryl Granger MD Urea nitrogen [Mass/Vol] 19 mg/dL Normal 8-23 [facility] Comment on above: Performed By: #### H H #### [facility] [address] [place] [address] Certified Neurodiagnostic Technologist: Darryl Granger MD Staging: NOT REPORTED Normal [facility] Comment on above: Performed By: #### H H #### [facility] [address] [place] [address] Certified Neurodiagnostic Technologist: Darryl Granger MD [facility] Erythrocyte distribution width (RBC) [Ratio] 19.5 % High 12.1-15.2 [facility] Comment on above: Performed By: #### C MARIO MONTIEL #### [facility] [address] [place] [address] Certified Neurodiagnostic Technologist: Darryl Granger MD Hematocrit (Bld) [Volume fraction] 26.9 % Low 36-46 [facility] Comment on above: Performed By: #### C MARIO MONTIEL #### [facility] [address] [place] [address] Certified Neurodiagnostic Technologist: Darryl Granger MD Hemoglobin (Bld) [Mass/Vol] 9.0 g/dL Low 12.0-16.0 [facility] Comment on above: Performed By: #### C DINESH LACDS #### [facility] [address], [place] [phone] Certified Neurodiagnostic Technologist: Darryl Granger MD MCH (RBC) [Entitic mass] 27.5 pg Normal 26-34 [facility] Comment on above: Performed By: #### C DINESH LACDS #### [facility] [address], [place] [phone] Certified Neurodiagnostic Technologist: Darryl Granger MD MCHC (RBC) [Mass/Vol] 33.5 g/dL Normal 31-[address] [facility] Comment on above: Performed By: #### C MARIO MONTIEL #### [facility] [address], [place] [phone] ([phone] Certified Neurodiagnostic Technologist: Darryl Granger MD MCV (RBC) [Entitic vol] 82.2 fL Normal 80-100 [facility] Comment on above: Performed By: #### C DINESH LACFERNANDA #### [facility] [address], [place] [phone] Certified Neurodiagnostic Technologist: Darryl Granger MD Platelets (Bld) [#/Vol] 109 10*3/uL Low 140-450 [facility] Comment on above: Performed By: #### C DINESH LACFERNANDA #### [facility] [address], [place] [phone] Certified Neurodiagnostic Technologist: Darryl Granger MD RBC (Bld) [#/Vol] 3.27 10*6/uL Low 4.0-5.2 [facility] Comment on above: Performed By: #### C MARIO MONTIEL #### [facility] [address], [place] [phone] ([phone] Certified Neurodiagnostic Technologist: Darryl Granger MD WBC (Bld) [#/Vol] 12.1 10*3/uL High 3.5-11.0 [facility] Comment on above: Performed By: #### C BC, LACDS #### [facility] [address] [place], [place] [phone] Certified Neurodiagnostic Technologist: Darryl Granger MD MPV NOT REPORTED Normal 6.0-12.0 [facility] Comment on above: Performed By: #### C BC, LACDS #### [facility] [address] [place], [place] [phone] Certified Neurodiagnostic Technologist: Darryl Granger MD NRBC Automated NOT REPORTED Normal [facility] Comment on above: Performed By: #### C BC, LACDS #### [facility] [address] [place] [address] Certified Neurodiagnostic Technologist: Darryl Granger MD CBCOrdered By: Isaias thomas on 01-11-2021 Hematocrit (Bld) [Volume fraction] 26.9 % Low 36 - 46 % [facility] Phone: Hemoglobin.gastrointe stinal spec 1 Ql (Stl) 9.0 g/dL Low 12.0 - 16.0 g/dL [facility] Phone: Interpretation and review of laboratory results Abnormal [facility] Phone: MCH (RBC) [Entitic mass] 27.5 pg 26 - 34 pg [facility] Phone: MCHC (RBC) [Mass/Vol] 33.5 g/dL 31 - 37 g/dL [facility] Work Phone: MCV (RBC) [Entitic vol] 82.2 fL 80 - 100 fL [facility] Phone: NRBC Automated NOT REPORTED per 100 WBC [facility] HospitalALCOHOOT [facility] Work Phone: Platelet distribution width (Bld) [Ratio] 19.5 % High 12.1 - 15.2 % [facility] Phone: Platelet mean volume (Bld) [Entitic vol] NOT REPORTED 6.0 - 12.0 fL [employer] Phone: Platelets (Bld) [#/Vol] 109 10*3/uL Low [employer] Work Phone: RBC (Bld) [#/Vol] 3.27 10*6/uL Low 4.0 - 5.2 m/uL [facility] Work Phone: WBC (Bld) [#/Vol] 12.1 10*3/uL High [facility] Work Phone: [facility] Work Phone: CBC Auto DifferentialOrdered By: Isaias Lowry on 01-11-2021 [employer] # 0.00 [facility] Work Phone: Absolute Immature Granulocyte NOT REPORTED [facility] Work Phone: Absolute Lymph # 1.50 [employer] [facility] Work Phone: [employer] [place] # 0.90 [facility] HospitalKnow[facility] Work Phone: Basophils (Bld) [#/Vol] 0.00 10*3/uL [facility] Work Phone: Basophils/100 WBC (Bld) 0 % 0 - 2 % [employer] Work Phone: Differential Type NOT REPORTED [facility] Work Phone: Eosinophils/100 WBC (Bld) 0 % 0 - 5 % [employer] Work Phone: Hematocrit (Bld) [Volume fraction] 26.5 % Low 36 - 46 % [employer] Work Phone: Hemoglobin.gastrointe stinal spec 1 Ql (Stl) 8.9 g/dL Low 12.0 - 16.0 g/dL [employer] Work Phone: Immature Granulocytes NOT REPORTED 0 % [facility] Work Phone: Interpretation and review of laboratory results Abnormal [employer] Work Phone: Lymphocytes/100 WBC (Bld) 12 % Low 15 - 40 % [employer] Work Phone: MCH (RBC) [Entitic mass] 27.5 pg 26 - 34 pg [employer] Work Phone: MCHC (RBC) [Mass/Vol] 33.5 g/dL 31 - 37 g/dL M [employer] Work Phone: MCV (RBC) [Entitic vol] 82.2 fL 80 - 100 fL [employer] Work Phone: Monocytes/100 WBC (Bld) 7 % 4 - 8 % [employer] Work Phone: Morphology Pramod (Bld) [Interp] SLIGHT DECREASED PLATELETS [employer] Work Phone: Morphology Pramod (Bld) [Interp] SLIGHT ANISOCYTOSIS [employer] Work Phone: NRBC Automated NOT REPORTED per 100 WBC [employer] Work Phone: Platelet distribution width (Bld) [Ratio] 19.3 % High 12.1 - 15.2 % [employer] Work Phone: Platelet Estimate NOT REPORTED [employer] Work Phone: Platelet mean volume (Bld) [Entitic vol] NOT REPORTED 6.0 - 12.0 fL [employer] Work Phone: Platelets (Bld) [#/Vol] 107 10*3/uL Low [employer] Work Phone: RBC (Bld) [#/Vol] 3.23 10*6/uL Low 4.0 - 5.2 m/uL [employer] Work Phone: RBC (Bld) [#/Vol] NOT REPORTED [employer] Work Phone: Segmented neutrophils/100 WBC (Bld) 81 % High 47 - 75 % [employer] Work Phone: Segs Absolute 10.30 High [employer] Work Phone: WBC (Bld) [#/Vol] 12.8 10*3/uL High [employer] Work Phone: WBC (Bld) [#/Vol] NOT REPORTED [employer] Work Phone: [employer] Work Phone: CBC Auto DifferentialOrdered By: Eugene Michelle on 01-11-2021 [facility] # 0.00 [facility] Work Phone: Absolute Immature Granulocyte NOT REPORTED [employer] Work Phone: Absolute Lymph # 2.10 [employer] [employer] Work Phone: Absolute [place] # 0.90 [facility] Work Phone: Basophils (Bld) [#/Vol] 0.00 10*3/uL [employer] Work Phone: Basophils/100 WBC (Bld) 0 % 0 - 2 % [employer] Work Phone: Differential Type NOT REPORTED [employer] Work Phone: Eosinophils/100 WBC (Bld) 0 % 0 - 5 % [employer] Work Phone: Hematocrit (Bld) [Volume fraction] 27.6 % Low 36 - 46 % [facility] Work Phone: Hemoglobin.gastrointe stinal spec 1 Ql (Stl) 9.2 g/dL Low 12.0 - 16.0 g/dL [employer] Work Phone: Immature Granulocytes NOT REPORTED 0 % [facility] Work Phone: Interpretation and review of laboratory results Abnormal [employer] Work Phone: Lymphocytes/100 WBC (Bld) 18 % 15 - 40 % [employer] Work Phone: MCH (RBC) [Entitic mass] 27.2 pg 26 - 34 pg [employer] Work Phone: MCHC (RBC) [Mass/Vol] 33.3 g/dL 31 - 37 g/dL [employer] Work Phone: MCV (RBC) [Entitic vol] 81.8 fL 80 - 100 fL [employer] Work Phone: Monocytes/100 WBC (Bld) 8 % 4 - 8 % [employer] Work Phone: Morphology Pramod (Bld) [Interp] SLIGHT ANISOCYTOSIS [employer] Work Phone: NRBC Automated NOT REPORTED per 100 WBC [employer] Work Phone: Platelet distribution width (Bld) [Ratio] 19.4 % High 12.1 - 15.2 % [employer] Phone: Platelet Estimate NOT REPORTED [employer] Phone: Platelet mean volume (Bld) [Entitic vol] NOT REPORTED 6.0 - 12.0 fL [employer] Work Phone: Platelets (Bld) [#/Vol] 107 10*3/uL Low [employer] Phone: RBC (Bld) [#/Vol] 3.37 10*6/uL Low 4.0 - 5.2 m/uL [employer] Work Phone: RBC (Bld) [#/Vol] NOT REPORTED [employer] Phone: Segmented neutrophils/100 WBC (Bld) 74 % 47 - 75 % [employer] Work Phone: Segs Absolute 8.80 High [employer] Work Phone: WBC (Bld) [#/Vol] 11.8 10*3/uL High [employer] Work Phone: WBC (Bld) [#/Vol] NOT REPORTED [employer] Phone: [employer] Work Phone: CBC with Diffon 01-11-2021 Morphology Pramod (Bld) [Interp] SLIGHT Normal [facility] Comment on above: Result Comment: DECR EASED PLATELETS SLIGHT ANISOCYTOSIS Performed By: #### C DP #### [facility] [address] [place] [address] Certified Neurodiagnostic Technologist: Darryl Granger MD Abs. Basophil 0.00 k/uL Normal 0.0-0.2 [facility] Comment on above: Performed By: #### C DP #### [facility] [address] [place] [address] Certified Neurodiagnostic Technologist: Darryl Granger MD Abs.Neutrophil (Seg) 10.30 k/uL High 2.5-7.0 [facility] Comment on above: Performed By: #### C DP #### [facility] [address] [place] [address] Certified Neurodiagnostic Technologist: Darryl Granger MD Basophils/100 WBC (Bld) 0 % Normal 0-2 [facility] Comment on above: Performed By: #### C DP #### [facility] [address] [place] [address] Certified Neurodiagnostic Technologist: Darryl Granger MD Eosinophils (Bld) [#/Vol] 0.00 10*3/uL Normal 0.0-0.4 [facility] Comment on above: Performed By: #### C DP #### [facility] [address] [place] [address] Certified Neurodiagnostic Technologist: Darryl Granger MD Eosinophils/100 WBC (Bld) 0 % Normal 0-5 [facility] Comment on above: Performed By: #### C DP #### [facility] [address] [place] [address] Certified Neurodiagnostic Technologist: Darryl Granger MD Erythrocyte distribution width (RBC) [Ratio] 19.3 % High 12.1-15.2 [facility] Comment on above: Performed By: #### C DP #### [facility] [address] [place] [address] Certified Neurodiagnostic Technologist: Darryl Granger MD Hematocrit (Bld) [Volume fraction] 26.5 % Low 36-46 [facility] Comment on above: Performed By: #### C DP #### [facility] [address] [place], [place] [phone] Certified Neurodiagnostic Technologist: Darryl Granger MD Hemoglobin (Bld) [Mass/Vol] 8.9 g/dL Low 12.0-16.0 [facility] Comment on above: Performed By: #### C DP #### [facility] [address] [place], [place] [phone] Certified Neurodiagnostic Technologist: Darryl Granger MD Lymphocytes (Bld) [#/Vol] 1.50 10*3/uL Normal 1.0-4.8 [facility] Comment on above: Performed By: #### C DP #### [facility] [address] [place] [address] Certified Neurodiagnostic Technologist: Darryl Granger MD Lymphocytes/100 WBC (Bld) 12 % Low 15-40 [facility] Comment on above: Performed By: #### C DP #### [facility] [address] [place] [address] Certified Neurodiagnostic Technologist: Darryl Granger MD MCH (RBC) [Entitic mass] 27.5 pg Normal 26-34 [facility] Comment on above: Performed By: #### C DP #### [facility] [address] [place] [address] Certified Neurodiagnostic Technologist: Darryl Granger MD MCHC (RBC) [Mass/Vol] 33.5 g/dL Normal 31-[address] [facility] Comment on above: Performed By: #### C DP #### [facility] [address] [place] [address] Certified Neurodiagnostic Technologist: Darryl Granger MD MCV (RBC) [Entitic vol] 82.2 fL Normal 80-100 [facility] Comment on above: Performed By: #### C DP #### [facility] [address] [place] [address] Certified Neurodiagnostic Technologist: Darryl Granger MD Monocytes (Bld) [#/Vol] 0.90 10*3/uL Normal 0.0-1.0 [facility] Comment on above: Performed By: #### C DP #### [facility] [address] [place] [address] Certified Neurodiagnostic Technologist: Darryl Granger MD Monocytes/100 WBC (Bld) 7 % Normal 4-8 [facility] Comment on above: Performed By: #### C DP #### [facility] [address] [place] [address] Certified Neurodiagnostic Technologist: Darryl Granger MD Neutrophil (Seg) 81 % High 47-75 [facility] Comment on above: Performed By: #### C DP #### [facility] [address] [place] [address] Certified Neurodiagnostic Technologist: Darryl Granger MD Platelets (Bld) [#/Vol] 107 10*3/uL Low 140-450 [facility] Comment on above: Performed By: #### C DP #### [facility] [address] [place] [address] Certified Neurodiagnostic Technologist: Darryl Granger MD RBC (Bld) [#/Vol] 3.23 10*6/uL Low 4.0-5.2 [facility] Comment on above: Performed By: #### C DP #### [facility] [address] [place] [address] Certified Neurodiagnostic Technologist: Darryl Granger MD WBC (Bld) [#/Vol] 12.8 10*3/uL High 3.5-11.0 [facility] Comment on above: Performed By: #### C DP #### [facility] [address] [place] [address] Certified Neurodiagnostic Technologist: Darryl Granger MD Abs.Imm.Granulocyte NOT REPORTED Normal 0.00-0.[address] [facility] Comment on above: Performed By: #### C DP #### [facility] [address] [place] [address] Certified Neurodiagnostic Technologist: Darryl Granger MD Auto Diff Performed NOT REPORTED Normal [facility] Comment on above: Performed By: #### C DP #### [facility] [address] [place] [address] Certified Neurodiagnostic Technologist: Darryl Granger MD Immature Granulocyte NOT REPORTED Normal 0 [facility] Comment on above: Performed By: #### C DP #### [facility] [address] [place] [address] Certified Neurodiagnostic Technologist: Darryl Granger MD MPV NOT REPORTED Normal 6.0-12.0 [facility] Comment on above: Performed By: #### C DP #### [facility] [address] [place] [address] Certified Neurodiagnostic Technologist: Darryl Granger MD NRBC Automated NOT REPORTED Normal [facility] Comment on above: Performed By: #### C DP #### [facility] [address] [place] [address] Certified Neurodiagnostic Technologist: Darryl Granger MD Platelet Estimate NOT REPORTED Normal [facility] Comment on above: Performed By: #### C DP #### [facility] [address] [place] [address] Certified Neurodiagnostic Technologist: Darryl Granger MD RBC morphology finding Nom (Bld) NOT REPORTED Normal [facility] Comment on above: Performed By: #### C DP #### [facility] [address] [place] [address] Certified Neurodiagnostic Technologist: Darryl Granger MD WBC Morphology NOT REPORTED Normal [facility] Comment on above: Performed By: #### C DP #### [facility] [address] [place] [address] Certified Neurodiagnostic Technologist: Darryl Granger MD Morphology Pramod (Bld) [Interp] SLIGHT Normal [facility] Comment on above: Result Comment: ANIS OCYTOSIS Performed By: #### H H #### [facility] [address] [place] [address] Certified Neurodiagnostic Technologist: Darryl Granger MD Abs. Basophil 0.00 k/uL Normal 0.0-0.2 [facility] Comment on above: Performed By: #### H H #### [facility] [address] [place] [phone] Certified Neurodiagnostic Technologist: Darryl Granger MD Abs.Neutrophil (Seg) 8.80 k/uL High 2.5-7.0 [facility] Comment on above: Performed By: #### H H #### [facility] [address] [place] [address] Certified Neurodiagnostic Technologist: Darryl Granger MD Basophils/100 WBC (Bld) 0 % Normal 0-2 [facility] Comment on above: Performed By: #### H H #### [facility] [address] [place] [address] Certified Neurodiagnostic Technologist: Darryl Granger MD Eosinophils (Bld) [#/Vol] 0.00 10*3/uL Normal 0.0-0.4 [facility] Comment on above: Performed By: #### H H #### [facility] [address] [place] [address] Certified Neurodiagnostic Technologist: Darryl Granger MD Eosinophils/100 WBC (Bld) 0 % Normal 0-5 [facility] Comment on above: Performed By: #### H H #### [facility] [address] [place] [address] Certified Neurodiagnostic Technologist: Darryl Granger MD Erythrocyte distribution width (RBC) [Ratio] 19.4 % High 12.1-15.2 [facility] Comment on above: Performed By: #### H H #### [facility] [address] [place] [address] Certified Neurodiagnostic Technologist: Darryl Granger MD Hematocrit (Bld) [Volume fraction] 27.6 % Low 36-46 [facility] Comment on above: Performed By: #### H H #### [facility] [address] [place], [place] [phone] Certified Neurodiagnostic Technologist: Darryl Granger MD Hemoglobin (Bld) [Mass/Vol] 9.2 g/dL Low 12.0-16.0 [facility] Comment on above: Performed By: #### H H #### [facility] [address] [place] [address] Certified Neurodiagnostic Technologist: Darryl Granger MD Lymphocytes (Bld) [#/Vol] 2.10 10*3/uL Normal 1.0-4.8 [facility] Comment on above: Performed By: #### H H #### [facility] [address] [place] [address] Certified Neurodiagnostic Technologist: Darryl Granger MD Lymphocytes/100 WBC (Bld) 18 % Normal 15-40 [facility] Comment on above: Performed By: #### H H #### [facility] [address] [place] [address] Certified Neurodiagnostic Technologist: Darryl Granger MD MCH (RBC) [Entitic mass] 27.2 pg Normal 26-34 [facility] Comment on above: Performed By: #### H H #### [facility] [address] [place] [address] Certified Neurodiagnostic Technologist: Darryl Granger MD MCHC (RBC) [Mass/Vol] 33.3 g/dL Normal 31-[address] [facility] Comment on above: Performed By: #### H H #### [facility] [address] [place], [place] [phone] ([phone] Certified Neurodiagnostic Technologist: Darryl Granger MD MCV (RBC) [Entitic vol] 81.8 fL Normal 80-100 [facility] Comment on above: Performed By: #### H H #### [facility] [address] [place], [place] [phone] (337) Certified Neurodiagnostic Technologist: Darryl Granger MD Monocytes (Bld) [#/Vol] 0.90 10*3/uL Normal 0.0-1.0 [facility] Comment on above: Performed By: #### H H #### [facility] [address] [place] [address] (850) Certified Neurodiagnostic Technologist: Darryl Granger MD Monocytes/100 WBC (Bld) 8 % Normal 4-8 [facility] Comment on above: Performed By: #### H H #### [facility] [address] [place] [address] (388) Certified Neurodiagnostic Technologist: Darryl Granger MD Neutrophil (Seg) 74 % Normal 47-75 [facility] Comment on above: Performed By: #### H H #### [facility] [address] [place], [place] [phone] (136) Certified Neurodiagnostic Technologist: Darryl Granger MD Platelets (Bld) [#/Vol] 107 10*3/uL Low 140-450 [facility] Comment on above: Performed By: #### H H #### [facility] [address] [place] [address] (033) Certified Neurodiagnostic Technologist: Darryl Granger MD RBC (Bld) [#/Vol] 3.37 10*6/uL Low 4.0-5.2 [facility] Comment on above: Performed By: #### H H #### [facility] [address] [place] [address] (607) Certified Neurodiagnostic Technologist: Darryl Granger MD WBC (Bld) [#/Vol] 11.8 10*3/uL High 3.5-11.0 [facility] Comment on above: Performed By: #### H H #### [facility] [address] [place], [place] [phone] Certified Neurodiagnostic Technologist: Darryl Granger MD Abs.Imm.Granulocyte NOT REPORTED Normal 0.00-0.[address] [facility] Comment on above: Performed By: #### H H #### [facility] [address] [place] [address] Certified Neurodiagnostic Technologist: Darryl Granger MD Auto Diff Performed NOT REPORTED Normal [facility] Comment on above: Performed By: #### H H #### [facility] [address] [place], [place] [phone] Certified Neurodiagnostic Technologist: Darryl Granger MD Immature Granulocyte NOT REPORTED Normal 0 [facility] Comment on above: Performed By: #### H H #### [facility] [address] [place], [place] [phone] Certified Neurodiagnostic Technologist: Darryl Granger MD MPV NOT REPORTED Normal 6.0-12.0 [facility] Comment on above: Performed By: #### H H #### [facility] [address] [place], [place] [phone] Certified Neurodiagnostic Technologist: Darryl Granger MD NRBC Automated NOT REPORTED Normal [facility] Comment on above: Performed By: #### H H #### [facility] [address] [place], [place] [phone] Certified Neurodiagnostic Technologist: Darryl Granger MD Platelet Estimate NOT REPORTED Normal [facility] Comment on above: Performed By: #### H H #### [facility] [address] [place], [place] [phone] Certified Neurodiagnostic Technologist: Darryl Granger MD RBC morphology finding Nom (Bld) NOT REPORTED Normal [facility] Comment on above: Performed By: #### H H #### [facility] [address] [place] [address] Certified Neurodiagnostic Technologist: Darryl Granger MD WBC Morphology NOT REPORTED Normal [facility] Comment on above: Performed By: #### H H #### [facility] [address] [place], [place] [phone] Certified Neurodiagnostic Technologist: Darryl Granger MD Lactate, Sepsison 01-11-2021 Lactic Acid, Sepsis 1.2 mmol/L Normal 0.5-1.9 [facility] Comment on above: Performed By: #### C DP, BMPX #### [facility] [address] [place], [place] [phone] Certified Neurodiagnostic Technologist: Darryl Granger MD Lactic Acid,Sep Wbld NOT REPORTED Normal 0.5-1.9 [facility] Comment on above: Performed By: #### C DP, BMPX #### [facility] [address] [place] [address] Certified Neurodiagnostic Technologist: Darryl Granger MD Lactate, SepsisOrdered By: Mickey Lowry on 01-11-2021 Lactic Acid, Sepsis 1.2 mmol/L 0.5 - 1.9 mmol/L [facility] [employer] Phone: Lactic Acid, Sepsis, Whole Blood NOT REPORTED 0.5 - 1.9 mmol/L [facility] Work Phone: [facility] Phone: Magnesiumon 01-11-2021 Magnesium [Mass/Vol] 1.8 mg/dL Normal 1.6-2.6 [facility] Comment on above: Performed By: #### H H #### [facility] [address] [place] [address] Certified Neurodiagnostic Technologist: Darryl Granger MD MagnesiumOrdered By: Isaias cody on 01-11-2021 Magnesium [Mass/Vol] 1.8 mg/dL 1.6 - 2.6 mg/dL [employer] Work Phone: No Panel InformationOrdered By: Isaias Lowry on 01-11-2021 [employer] Work Phone: TYPE AND SCREENOrdered By: Mickey Lowry on 01-11-2021 ABO/Rh Negative [employer] Phone: Arm Band Number NOT REPORTED [facility] Work Phone: Blood product type Nom (BPU) Leukocyte Reduced Red Cell [facility] Work Phone: Crossmatch Result COMPATIBLE [email or web address] Work Phone: Dispense Status TRANSFUSED [facility] Work Phone: Expiration Date 01/12/2021,2359 [employer] Work Phone: Transfusion Status OK TO TRANSFUSE [facility] Work Phone: Unit Divison 0 [facility] Work Phone: Unit Number [id number] [employer] Work Phone: Unit Number [id number] [employer] Work Phone: [employer] Work Phone: XR CHEST PORTABLEon 01-12-20 XR CHEST PORTABLE EXAM: XR CHEST PORTABLE HISTORY: Reason for exam:->elevated WBC cough . COMPARISON: 01/08/2021 TECHNIQUE: Portable view of the chest. FINDINGS: Heart and vascularity are unremarkable. Right lung is unremarkable. There is been interval development of the left lower lobe pneumonia with a small left effusion. Left upper lobe is unremarkable. Atherosclerotic changes of the thoracic aorta are noted. There is calcified granuloma in the left midlung field. EKG leads overlie the chest. IMPRESSION: Impression: 1. Interval development of the left lower lobe pneumonia with a small left effusion. 2. Old granulomatous disease. 3. Right lung is unremarkable. Interpreted by: Darryl Son MD Signed by: Darryl Son MD 01/11/21 Final result Normal [facility] XR CHEST PORTABLEOrdered By: Isaias Lowry on 01-11-2021 Impression: 1. Interval development of the left lower lobe pneumonia with a small left effusion. 2. Old granulomatous disease. 3. Right lung is unremarkable. [employer] Phone: EXAM: XR CHEST PORTABLE HISTORY: Reason for exam:->elevated WBC cough . COMPARISON: 01/08/2021 TECHNIQUE: Portable view of the chest. FINDINGS: Heart and vascularity are unremarkable. Right lung is unremarkable. There is been interval development of the left lower lobe pneumonia with a small left effusion. Left upper lobe is unremarkable. Atherosclerotic changes of the thoracic aorta are noted. There is calcified granuloma in the left midlung field. EKG leads overlie the chest. [employer] Phone: Paul, pn Incoming Radiant Results From [employer]express[employer] software - 01/11/2021 6:53 PM EDT EXAM: XR CHEST PORTABLE HISTORY: Reason for exam:->elevated WBC cough . COMPARISON: 01/08/2021 TECHNIQUE: Portable view of the chest. FINDINGS: Heart and vascularity are unremarkable. Right lung is unremarkable. There is been interval development of the left lower lobe pneumonia with a small left effusion. Left upper lobe is unremarkable. Atherosclerotic changes of the thoracic aorta are noted. There is calcified granuloma in the left midlung field. EKG leads overlie the chest. IMPRESSION: Impression: 1. Interval development of the left lower lobe pneumonia with a small left effusion. 2. Old granulomatous disease. 3. Right lung is unremarkable. [employer] Phone: [employer] Phone: Basic Metabolic PanelOrdered By: Eugene Michelle on 01-10-2021 Anion gap [Moles/Vol] 7 mmol/L Low 9 - 17 mmol/L [employer] Phone: Calcium [Mass/Vol] 8.4 mg/dL Low 8.6 - 10.4 mg/dL [employer] Phone: Chloride [Moles/Vol] 106 mmol/L 98 - 107 mmol/L [facility] Phone: CO2 [Moles/Vol] 22 mmol/L 20 - 31 mmol/L [facility] Phone: Creatinine [Mass/Vol] 1.63 mg/dL High 0.50 - 0.90 mg/dL [employer] Phone: GFR 38 mL/min Low >60 [employer] Phone: GFR Non- 31 mL/min Low >60 [employer] Phone: GFR/1.73 sq M.predicted MDRD (S/P/Bld) [Vol rate/Area] [facility] Phone: Comment on above: Average GFR for 70 o r more years old: 75 mL/min/1.73sq m Chronic Kidney Disease: <60 mL/min/1.73sq m Kidney failure: <15 mL/min/1.73sq m eGFR calculated using average adult body mass. Additional eGFR calculator available at: http://www.[employer]/multiple_crcl_2012.htm GFR/1.73 sq M.predicted MDRD (S/P/Bld) [Vol rate/Area] NOT REPORTED [facility] Phone: Glucose [Mass/Vol] 157 mg/dL High 70 - 99 mg/dL [facility] [employer] Phone: Interpretation and review of laboratory results Abnormal [facility] Phone: Potassium [Moles/Vol] 5.4 mmol/L High 3.7 - 5.3 mmol /L [facility] Phone: Sodium [Moles/Vol] 135 mmol/L 135 - 144 mmol/L [facility] Phone: Urea nitrogen (BldV) [Mass/Vol] 19 mg/dL 8 - 23 mg/dL [employer] Phone: Urea nitrogen/Creatinine (Bld) [Mass ratio] 12 [facility] Work Phone: [facility] Work Phone: Basic Metabolic Profon 01-10 (cont.) Normal [facility] Comment on above: Result Comment: Aver age GFR for 70 or more years old: 75 mL/min/1.73sq m Chronic Kidney Disease: <60 mL/min/1.73sq m Kidney failure: <15 mL/min/1.73sq m eGFR calculated using average adult body mass. Additional eGFR calculator available at: http://www.[employer]/multiple_crcl_2011.htm Performed By: #### C DP, BMP #### [facility] [address] [place], [place] [phone] Certified Neurodiagnostic Technologist: Darryl Granger MD Anion gap [Moles/Vol] 7 mmol/L Low 9-[address] [facility] Comment on above: Performed By: #### C DP, BMP #### [facility] [address] [place], [place] [phone] Certified Neurodiagnostic Technologist: Darryl Granger MD BUN/CRE Ratio 12 Normal 9-20 [facility] Comment on above: Performed By: #### C DP, BMP #### [facility] [address] [place], [place] [id number] Certified Neurodiagnostic Technologist: Darryl Granger MD Calcium [Mass/Vol] 8.4 mg/dL Low 8.6-10.4 [facility] Comment on above: Performed By: #### C DP, BMP #### [facility] [address], [place] [phone] Certified Neurodiagnostic Technologist: Darryl Granger MD Chloride [Moles/Vol] 106 mmol/L Normal 98-107 [facility] Comment on above: Performed By: #### C DP, BMP #### [facility] [address], [place] [phone] Certified Neurodiagnostic Technologist: Darryl Granger MD CO2 [Moles/Vol] 22 mmol/L Normal 20-31 [facility] Comment on above: Performed By: #### C DP, BMP #### [facility] [address], [place] [phone] Certified Neurodiagnostic Technologist: Darryl Granger MD Creatinine [Mass/Vol] 1.63 mg/dL High 0.50-0.[address] [facility] Comment on above: Performed By: #### C DP, BMP #### [facility] [address], [place] [phone] Certified Neurodiagnostic Technologist: Darryl Granger MD GFR, Amer 38 mL/min Low >60 [facility] Comment on above: Performed By: #### C DP, BMP #### [facility] [address], [place] [phone] Certified Neurodiagnostic Technologist: Darryl Granger MD GFR,non Amer 31 mL/min Low >60 [facility] Comment on above: Performed By: #### C DP, BMP #### [facility] [address] [place] [address] Certified Neurodiagnostic Technologist: Darryl Granger MD Glucose [Mass/Vol] 157 mg/dL High 70-99 [facility] Comment on above: Performed By: #### C DP, BMP #### [facility] [address], [place] [phone] Certified Neurodiagnostic Technologist: Darryl Granger MD Potassium [Moles/Vol] 5.4 mmol/L High 3.7-5.[address] [facility] Comment on above: Performed By: #### C DP, BMP #### [facility] [address] [place] [address] Certified Neurodiagnostic Technologist: Darryl Granger MD Sodium [Moles/Vol] 135 mmol/L Normal 135-144 [facility] Comment on above: Performed By: #### C DP, BMP #### [facility] [address] [facility] [place] [phone] Certified Neurodiagnostic Technologist: Darryl Granger MD Urea nitrogen [Mass/Vol] 19 mg/dL Normal 8-23 [facility] Comment on above: Performed By: #### C DP, BMP #### [facility] [address] [place], [place] [phone] Certified Neurodiagnostic Technologist: Darryl Granger MD Staging: NOT REPORTED Normal [facility] Comment on above: Performed By: #### C DP, BMP #### [facility] [address] [place] [address] Certified Neurodiagnostic Technologist: Darryl Granger MD CBC Auto DifferentialOrdered By: Eugene Michelle on 01-10-2021 Absolute Bands # 0.19 [facility] Work Phone: Absolute Eos # [facility] Work Phone: Comment on above: CORRECTED ON 01/10 A T 0543: PREVIOUSLY REPORTED 0.00 Absolute Immature Granulocyte NOT REPORTED [facility] Work Phone: Absolute Lymph # 0.85 Low [facility] Work Phone: Comment on above: CORRECTED ON 01/10 A T 0543: PREVIOUSLY REPORTED 0.30 [facility] [place] # 0.66 [facility] Work Phone: Comment on above: CORRECTED ON 01/10 A T 0543: PREVIOUSLY REPORTED 0.50 Bands 2 % 0 - 10 % [facility] Work Phone: Basophils (Bld) [#/Vol] 0 - 2 % [facility] Work Phone: Comment on above: CORRECTED ON 01/10 A T 0543: PREVIOUSLY REPORTED 0 Basophils Absolute [facility] Work Phone: Comment on above: CORRECTED ON 01/10 A T 0543: PREVIOUSLY REPORTED 0.00 Differential Type NOT REPORTED [facility] Work Phone: Eosinophils % 0 - 5 % [facility] Work Phone: Comment on above: CORRECTED ON 01/10 A T 0543: PREVIOUSLY REPORTED 0 Hematocrit (Bld) [Volume fraction] 21.6 % Low 36 - 46 % [employer] Phone: Hemoglobin.gastrointe stinal spec 1 Ql (Stl) 7.0 g/dL Critically low 12.0 - 16.0 g/dL [employer] Phone: Immature Granulocytes NOT REPORTED 0 % [employer] Phone: Interpretation and review of laboratory results Abnormal [employer] Phone: Lymphocytes/100 WBC (Bld) 9 % Low 15 - 40 % [employer] Phone: Comment on above: CORRECTED ON 01/10 A T 0543: PREVIOUSLY REPORTED 4 MCH (RBC) [Entitic mass] 27.8 pg 26 - 34 pg [employer] Phone: MCHC (RBC) [Mass/Vol] 32.5 g/dL 31 - 37 g/dL M [employer] Phone: MCV (RBC) [Entitic vol] 85.5 fL 80 - 100 fL [employer] Phone: Monocytes/100 WBC (Bld) 7 % 4 - 8 % [employer] Phone: Comment on above: CORRECTED ON 01/10 A T 0543: PREVIOUSLY REPORTED 5 Morphology Pramod (Bld) [Interp] Manual Differential Performed [employer] Phone: NRBC Automated NOT REPORTED per 100 WBC [employer] [facility] Work Phone: Platelet distribution width (Bld) [Ratio] 15.9 % High 12.1 - 15.2 % [employer] Phone: Platelet Estimate NOT REPORTED [employer] Phone: Platelet mean volume (Bld) [Entitic vol] NOT REPORTED 6.0 - 12.0 fL [employer] Phone: Platelets (Bld) [#/Vol] 151 10*3/uL [facility] Work Phone: RBC (Bld) [#/Vol] 2.53 10*6/uL Low 4.0 - 5.2 m/uL [facility] Work Phone: RBC (Bld) [#/Vol] NOT REPORTED [facility] Work Phone: Seg Neutrophils 82 % High 47 - 75 % [facility] Work Phone: Comment on above: CORRECTED ON 01/10 A T 0543: PREVIOUSLY REPORTED 91 Segs Absolute 7.70 High [facility] Work Phone: Comment on above: CORRECTED ON 01/10 A T 0543: PREVIOUSLY REPORTED 8.60 WBC (Bld) [#/Vol] 9.4 10*3/uL [facility] Work Phone: WBC (Bld) [#/Vol] NOT REPORTED [facility] Work Phone: [facility] Work Phone: CBC auto differentialOrdered By: Isaias Lowry on 01-10-2021 [facility] Eos # 0.00 [facility] Work Phone: Absolute Immature Granulocyte NOT REPORTED [facility] Work Phone: Absolute Lymph # 0.70 Low [facility] Work Phone: [facility] [place] # 1.20 High [facility] Work Phone: Basophils (Bld) [#/Vol] 0.00 10*3/uL [facility] Work Phone: Basophils/100 WBC (Bld) 0 % 0 - 2 % [facility] Work Phone: Differential Type YES [facility] Work Phone: Eosinophils/100 WBC (Bld) 0 % 0 - 5 % [facility] Work Phone: Hematocrit (Bld) [Volume fraction] 24.9 % Low 36 - 46 % [employer] Phone: Hemoglobin.gastrointe stinal spec 1 Ql (Stl) 8.3 g/dL Low 12.0 - 16.0 g/dL [employer] Phone: Immature Granulocytes NOT REPORTED 0 % [facility] [employer] Work Phone: Interpretation and review of laboratory results Abnormal [employer] Phone: Lymphocytes/100 WBC (Bld) 7 % Low 15 - 40 % [employer] Phone: MCH (RBC) [Entitic mass] 28.8 pg 26 - 34 pg [employer] Phone: MCHC (RBC) [Mass/Vol] 33.5 g/dL 31 - 37 g/dL M [employer] Phone: MCV (RBC) [Entitic vol] 85.8 fL 80 - 100 fL [employer] Phone: Monocytes/100 WBC (Bld) 12 % High 4 - 8 % [employer] Phone: NRBC Automated NOT REPORTED per 100 WBC [employer] Work Phone: Platelet distribution width (Bld) [Ratio] 15.5 % High 12.1 - 15.2 % [employer] Phone: Platelet Estimate NOT REPORTED [employer] Phone: Platelet mean volume (Bld) [Entitic vol] NOT REPORTED 6.0 - 12.0 fL [employer] Phone: Platelets (Bld) [#/Vol] 135 10*3/uL Low [employer] Phone: RBC (Bld) [#/Vol] 2.90 10*6/uL Low 4.0 - 5.2 m/uL [facility] [employer] Work Phone: RBC (Bld) [#/Vol] NOT REPORTED [facility] Phone: Segmented neutrophils/100 WBC (Bld) 81 % High 47 - 75 % [employer] Phone: Segs Absolute 8.10 High [facility] [employer] Work Phone: WBC (Bld) [#/Vol] 10.0 10*3/uL [facility] Work Phone: WBC (Bld) [#/Vol] NOT REPORTED [facility] Phone: [facility] Phone: CBC with Diffon 01-10-2021 Abs. Basophil 0.00 k/uL Normal 0.0-0.2 [facility] Comment on above: Performed By: #### H H #### [facility] [address] [place] [address] Certified Neurodiagnostic Technologist: Darryl Granger MD Abs.Neutrophil (Seg) 8.10 k/uL High 2.5-7.0 [facility] Comment on above: Performed By: #### H H #### [facility] [address] [place] [phone] Certified Neurodiagnostic Technologist: Darryl Granger MD Auto Diff Performed YES Normal [facility] Comment on above: Performed By: #### H H #### [facility] [address] [place] [address] Certified Neurodiagnostic Technologist: Darryl Granger MD Basophils/100 WBC (Bld) 0 % Normal 0-2 [facility] Comment on above: Performed By: #### H H #### [facility] [address] [place] [phone] Certified Neurodiagnostic Technologist: Darryl Granger MD Eosinophils (Bld) [#/Vol] 0.00 10*3/uL Normal 0.0-0.4 [facility] Comment on above: Performed By: #### H H #### [facility] [address], [place] [phone] Certified Neurodiagnostic Technologist: Darryl Granger MD Eosinophils/100 WBC (Bld) 0 % Normal 0-5 [facility] Comment on above: Performed By: #### H H #### [facility] [address] [place] [phone] Certified Neurodiagnostic Technologist: Darryl Granger MD Erythrocyte distribution width (RBC) [Ratio] 15.5 % High 12.1-15.2 [facility] Comment on above: Performed By: #### H H #### [facility] [address] [place] [phone] Certified Neurodiagnostic Technologist: Darryl Granger MD Hematocrit (Bld) [Volume fraction] 24.9 % Low 36-46 [facility] Comment on above: Performed By: #### H H #### [facility] [address] [place] [phone] Certified Neurodiagnostic Technologist: Darryl Granger MD Hemoglobin (Bld) [Mass/Vol] 8.3 g/dL Low 12.0-16.0 [facility] Comment on above: Performed By: #### H H #### [facility] [address], [place] [phone] Certified Neurodiagnostic Technologist: Darryl Granger MD Lymphocytes (Bld) [#/Vol] 0.70 10*3/uL Low 1.0-4.8 [facility] Comment on above: Performed By: #### H H #### [facility] [address] [place] [address] Certified Neurodiagnostic Technologist: Darryl Granger MD Lymphocytes/100 WBC (Bld) 7 % Low 15-40 [facility] Comment on above: Performed By: #### H H #### [facility] [address] [place] [address] Certified Neurodiagnostic Technologist: Darryl Granger MD MCH (RBC) [Entitic mass] 28.8 pg Normal 26-34 [facility] Comment on above: Performed By: #### H H #### [facility] [address] [place] [address] Certified Neurodiagnostic Technologist: Darryl Granger MD MCHC (RBC) [Mass/Vol] 33.5 g/dL Normal 31-[address] [facility] Comment on above: Performed By: #### H H #### [facility] [address] [place] [address] Certified Neurodiagnostic Technologist: Darryl Granger MD MCV (RBC) [Entitic vol] 85.8 fL Normal 80-100 [facility] Comment on above: Performed By: #### H H #### [facility] [address] [place] [address] Certified Neurodiagnostic Technologist: Darryl Granger MD Monocytes (Bld) [#/Vol] 1.20 10*3/uL High 0.0-1.0 [facility] Comment on above: Performed By: #### H H #### [facility] [address] [place] [address] Certified Neurodiagnostic Technologist: Darryl Granger MD Monocytes/100 WBC (Bld) 12 % High 4-8 [facility] Comment on above: Performed By: #### H H #### [facility] [address] [place] [address] Certified Neurodiagnostic Technologist: Darryl Granger MD Neutrophil (Seg) 81 % High 47-75 [facility] Comment on above: Performed By: #### H H #### [facility] [address] [place] [address] Certified Neurodiagnostic Technologist: Darryl Granger MD Platelets (Bld) [#/Vol] 135 10*3/uL Low 140-450 [facility] Comment on above: Performed By: #### H H #### [facility] [address] [place] [address] Certified Neurodiagnostic Technologist: Darryl Granger MD RBC (Bld) [#/Vol] 2.90 10*6/uL Low 4.0-5.2 [facility] Comment on above: Performed By: #### H H #### [facility] [address] [place] [address] Certified Neurodiagnostic Technologist: Darryl Granger MD WBC (Bld) [#/Vol] 10.0 10*3/uL Normal 3.5-11.0 [facility] Comment on above: Performed By: #### H H #### [facility] [address] [place] [address] Certified Neurodiagnostic Technologist: Darryl Granger MD Abs.Imm.Granulocyte NOT REPORTED Normal 0.00-0.[address] [facility] Comment on above: Performed By: #### H H #### [facility] [address] [place] [address] Certified Neurodiagnostic Technologist: Darryl Granger MD Immature Granulocyte NOT REPORTED Normal 0 [facility] Comment on above: Performed By: #### H H #### [facility] [address] [place] [address] Certified Neurodiagnostic Technologist: Darryl Granger MD MPV NOT REPORTED Normal 6.0-12.0 [facility] Comment on above: Performed By: #### H H #### [facility] [address] [place] [address] Certified Neurodiagnostic Technologist: Darryl Granger MD NRBC Automated NOT REPORTED Normal [facility] Comment on above: Performed By: #### H H #### [facility] [address] [place] [address] Certified Neurodiagnostic Technologist: Darryl Granger MD Platelet Estimate NOT REPORTED Normal [facility] Comment on above: Performed By: #### H H #### [facility] [address] [place] [address] Certified Neurodiagnostic Technologist: Darryl Granger MD RBC morphology finding Nom (Bld) NOT REPORTED Normal [facility] Comment on above: Performed By: #### H H #### [facility] [address] [place] [address] Certified Neurodiagnostic Technologist: Darryl Granger MD WBC Morphology NOT REPORTED Normal [facility] Comment on above: Performed By: #### H H #### [facility] [address] [place] [address] Certified Neurodiagnostic Technologist: Darryl Granger MD Abs. Bands 0.19 k/uL Normal 0.0-1.0 [facility] Comment on above: Performed By: #### C DP, BMP #### [facility] [address] [place] [address] Certified Neurodiagnostic Technologist: Darryl Granger MD Abs. Basophil Normal 0.0-0.2 [facility] Comment on above: Result Comment: NICK ECTED ON 01/10 AT 0543: PREVIOUSLY REPORTED 0.00 Performed By: #### C DP, BMP #### [facility] [address] [place] [address] Certified Neurodiagnostic Technologist: Darryl Granger MD Abs. Eosinophil Normal 0.0-0.4 [facility] Comment on above: Result Comment: NICK ECTED ON 01/10 AT 0543: PREVIOUSLY REPORTED 0.00 Performed By: #### C DP, BMP #### [facility] [address] [place] [address] Certified Neurodiagnostic Technologist: Darryl Granger MD Abs.Neutrophil (Seg) 7.70 k/uL High 2.5-7.0 [facility] Comment on above: Result Comment: NICK ECTED ON 01/10 AT 0543: PREVIOUSLY REPORTED 8.60 Performed By: #### C DP, BMP #### [facility] [address] [place] [address] Certified Neurodiagnostic Technologist: Darryl Granger MD Bands 2 % Normal 0-10 [facility] Comment on above: Performed By: #### C DP, BMP #### [facility] [address] [place] [address] Certified Neurodiagnostic Technologist: Darryl Granger MD Basophil Normal 0-2 [facility] Comment on above: Result Comment: NICK ECTED ON 01/10 AT 0543: PREVIOUSLY REPORTED 0 Performed By: #### C DP, BMP #### [facility] [address] [place] [phone] Certified Neurodiagnostic Technologist: Darryl Granger MD Eosinophil Normal 0-5 [facility] Comment on above: Result Comment: NICK ECTED ON 01/10 AT 0543: PREVIOUSLY REPORTED 0 Performed By: #### C DP, BMP #### [facility] [address] [place] [phone] Certified Neurodiagnostic Technologist: Darryl Granger MD Lymphocytes (Bld) [#/Vol] 0.85 10*3/uL Low 1.0-4.8 [facility] Comment on above: Result Comment: NICK ECTED ON 01/10 AT 0543: PREVIOUSLY REPORTED 0.30 Performed By: #### C DP, BMP #### [facility] [address] [place] [address] Certified Neurodiagnostic Technologist: Darryl Granger MD Lymphocytes/100 WBC (Bld) 9 % Low 15-40 [facility] Comment on above: Result Comment: NICK ECTED ON 01/10 AT 0543: PREVIOUSLY REPORTED 4 Performed By: #### C DP, BMP #### [facility] [address] [place] [address] Certified Neurodiagnostic Technologist: Darryl Granger MD Monocytes (Bld) [#/Vol] 0.66 10*3/uL Normal 0.0-1.0 [facility] Comment on above: Result Comment: NICK ECTED ON 01/10 AT 0543: PREVIOUSLY REPORTED 0.50 Performed By: #### C DP, BMP #### [facility] [address] [place], [place] [phone] Certified Neurodiagnostic Technologist: Darryl Granger MD Monocytes/100 WBC (Bld) 7 % Normal 4-8 [facility] Comment on above: Result Comment: NICK ECTED ON 01/10 AT 0543: PREVIOUSLY REPORTED 5 Performed By: #### C DP, BMP #### [facility] [address] [place] [phone] Certified Neurodiagnostic Technologist: Daryrl Granger MD Morphology Pramod (Bld) [Interp] Manual Differential Performed Normal [facility] Comment on above: Performed By: #### C DP, BMP #### [facility] [address] [place] [phone] Certified Neurodiagnostic Technologist: Darryl Granger MD Neutrophil (Seg) 82 % High 47-75 [facility] Comment on above: Result Comment: NICK ECTED ON 01/10 AT 0543: PREVIOUSLY REPORTED 91 Performed By: #### C DP, BMP #### [facility] [address] [place] [address] Certified Neurodiagnostic Technologist: Darryl Granger MD Erythrocyte distribution width (RBC) [Ratio] 15.9 % High 12.1-15.2 [facility] Comment on above: Performed By: #### C DP, BMP #### [facility] [address] [place] [address] Certified Neurodiagnostic Technologist: Darryl Granger MD Hematocrit (Bld) [Volume fraction] 21.6 % Low 36-46 [facility] Comment on above: Performed By: #### C DP, BMP #### [facility] [address] [place] [address] Certified Neurodiagnostic Technologist: Darryl Granger MD Hemoglobin (Bld) [Mass/Vol] 7.0 g/dL Critically low 12.0-16.0 [facility] Comment on above: Performed By: #### C DP, BMP #### [facility] [address] [place] [address] [phone] Certified Neurodiagnostic Technologist: Darryl Granger MD MCH (RBC) [Entitic mass] 27.8 pg Normal 26-34 [facility] Comment on above: Performed By: #### C DP, BMP #### [facility] [address], [place] [phone] Certified Neurodiagnostic Technologist: Darryl Granger MD MCHC (RBC) [Mass/Vol] 32.5 g/dL Normal 31-[address] [facility] Comment on above: Performed By: #### C DP, BMP #### [facility] [address], [place] [phone] ([phone] Certified Neurodiagnostic Technologist: Darryl Granger MD MCV (RBC) [Entitic vol] 85.5 fL Normal 80-100 [facility] Comment on above: Performed By: #### C DP, BMP #### [facility] [address] [place] [address] ([phone] Certified Neurodiagnostic Technologist: Darryl Granger MD Platelets (Bld) [#/Vol] 151 10*3/uL Normal 140-450 [facility] Comment on above: Performed By: #### C DP, BMP #### [facility] [address] [place] [address] (647) Certified Neurodiagnostic Technologist: Darryl Granger MD RBC (Bld) [#/Vol] 2.53 10*6/uL Low 4.0-5.2 [facility] Comment on above: Performed By: #### C DP, BMP #### [facility] [address], [place] [phone] ([phone] Certified Neurodiagnostic Technologist: Darryl Granger MD WBC (Bld) [#/Vol] 9.4 10*3/uL Normal 3.5-11.0 [facility] Comment on above: Performed By: #### C DP, BMP #### [facility] [address] [place] [address] Certified Neurodiagnostic Technologist: Darryl Granger MD Abs.Imm.Granulocyte NOT REPORTED Normal 0.00-0.[address] [facility] Comment on above: Performed By: #### C DP, BMP #### [facility] [address] [place], [place] [phone] Certified Neurodiagnostic Technologist: Darryl Granger MD Auto Diff Performed NOT REPORTED Normal [facility] Comment on above: Performed By: #### C DP, BMP #### [facility] [address] [place] [address] Certified Neurodiagnostic Technologist: Darryl Granger MD Immature Granulocyte NOT REPORTED Normal 0 [facility] Comment on above: Performed By: #### C DP, BMP #### [facility] [address] [place] [address] Certified Neurodiagnostic Technologist: Darryl Granger MD MPV NOT REPORTED Normal 6.0-12.0 [facility] Comment on above: Performed By: #### C DP, BMP #### [facility] [address] [place] [address] Certified Neurodiagnostic Technologist: Darryl Granger MD NRBC Automated NOT REPORTED Normal [facility] Comment on above: Performed By: #### C DP, BMP #### [facility] [address] [place] [address] Certified Neurodiagnostic Technologist: Darryl Granger MD Platelet Estimate NOT REPORTED Normal [facility] Comment on above: Performed By: #### C DP, BMP #### [facility] [address] [place] [address] Certified Neurodiagnostic Technologist: Darryl Granger MD RBC morphology finding Nom (Bld) NOT REPORTED Normal [facility] Comment on above: Performed By: #### C DP, BMP #### [facility] [address] [place] [address] Certified Neurodiagnostic Technologist: Darryl Granger MD WBC Morphology NOT REPORTED Normal [facility] Comment on above: Performed By: #### C DP, BMP #### [facility] [address] [place] [address] Certified Neurodiagnostic Technologist: Darryl Granger MD Type + Screenon 01-10-2021 Type + Screen Sample Expiration 01/12/2021,2359 Arm Band Number NOT REPORTED ABO/Rh(D) A NEGATIVE Antibody Screen NEGATIVE Unit Number [id number] Blood Component Type Leukocyte Reduced Red Cell Unit Division 00 Status of Unit TRANSFUSED Transfusion Status OK TO TRANSFUSE Crossmatch Result COMPATIBLE Unit Number [id number] Blood Component Type Leukocyte Reduced Red Cell Unit Division 00 Status of Unit TRANSFUSED Transfusion Status OK TO TRANSFUSE Crossmatch Result COMPATIBLE Normal [facility] Comment on above: Performed By: #### C DP, BMPX #### [facility] [address] [place] [address] Certified Neurodiagnostic Technologist: Darryl Granger MD XR ABDOMEN (KUB) (SINGLE AP VIEW)on 01-10-2021 XR ABDOMEN (KUB) (SINGLE AP VIEW) EXAM: XR ABDOMEN (KUB) (SINGLE AP VIEW) HISTORY: Reason for exam:->emesis , right hip surgery yesterday. COMPARISON: None. TECHNIQUE: Portable AP supine view of the abdomen. FINDINGS: Catheter projected over the midline of the pelvis. Incompletely included right femoral intramedullary jerry and dynamic compression screw. Gas within the soft tissues lateral to the right hip. No specific evidence for bowel obstruction. Supine radiographs are insensitive for detection of free intraperitoneal air. Cholecystectomy clips are present. IMPRESSION: Nonobstructive bowel gas pattern. Interpreted by: Gerhard Hamilton MD Signed by: Gerhard Hamilton MD 01/10/21 Final result Normal [facility] XR ABDOMEN (KUB) (SINGLE AP VIEW)Ordered By: Isaias Lowry on 01-10-2021 Nonobstructive bowel gas pattern. [facility] Work Phone: EXAM: XR ABDOMEN (KUB) (SINGLE AP VIEW) HISTORY: Reason for exam:->emesis , right hip surgery yesterday. COMPARISON: None. TECHNIQUE: Portable AP supine view of the abdomen. FINDINGS: Catheter projected over the midline of the pelvis. Incompletely included right femoral intramedullary jerry and dynamic compression screw. Gas within the soft tissues lateral to the right hip. No specific evidence for bowel obstruction. Supine radiographs are insensitive for detection of free intraperitoneal air. Cholecystectomy clips are present. [facility] Phone: Paul, Mhpn Incoming Radiant Results From [employer]/expressor software - 01/10/2021 3:51 PM EDT EXAM: XR ABDOMEN (KUB) (SINGLE AP VIEW) HISTORY: Reason for exam:->emesis , right hip surgery yesterday. COMPARISON: None. TECHNIQUE: Portable AP supine view of the abdomen. FINDINGS: Catheter projected over the midline of the pelvis. Incompletely included right femoral intramedullary jerry and dynamic compression screw. Gas within the soft tissues lateral to the right hip. No specific evidence for bowel obstruction. Supine radiographs are insensitive for detection of free intraperitoneal air. Cholecystectomy clips are present. IMPRESSION: Nonobstructive bowel gas pattern. [employer] Phone: [employer] Phone: Basic Metab w/rfx MGon 01-09 (cont.) Normal [facility] Comment on above: Result Comment: Aver age GFR for 70 or more years old: 75 mL/min/1.73sq m Chronic Kidney Disease: <60 mL/min/1.73sq m Kidney failure: <15 mL/min/1.73sq m eGFR calculated using average adult body mass. Additional eGFR calculator available at: http://www.Egnyte.[employer]ener[employer] Sciences/multiple_crcl_2012.htm Performed By: #### C DP, BMPX #### [facility] [address] [place] [address] Certified Neurodiagnostic Technologist: Darryl Granger MD Anion gap [Moles/Vol] 6 mmol/L Low 9-[address] [facility] Comment on above: Performed By: #### C DP, BMPX #### [facility] [address] [place] [address] Certified Neurodiagnostic Technologist: Darryl Granger MD BUN/CRE Ratio 12 Normal 9-20 [facility] Comment on above: Performed By: #### C DP, BMPX #### [facility] [address] [place], [place] [phone] Certified Neurodiagnostic Technologist: Darryl Granger MD Calcium [Mass/Vol] 8.9 mg/dL Normal 8.6-10.4 [facility] Comment on above: Performed By: #### C DP, BMPX #### [facility] [address] [place], [place] [id number] Certified Neurodiagnostic Technologist: Darryl Granger MD Chloride [Moles/Vol] 102 mmol/L Normal 98-107 [facility] Comment on above: Performed By: #### C DP, BMPX #### [facility] [address] [place] [address] Certified Neurodiagnostic Technologist: Darryl Granger MD CO2 [Moles/Vol] 28 mmol/L Normal 20-31 [facility] Comment on above: Performed By: #### C DP, BMPX #### [facility] [address] [place] [address] Certified Neurodiagnostic Technologist: Darryl Granger MD Creatinine [Mass/Vol] 1.45 mg/dL High 0.50-0.[address] [facility] Comment on above: Performed By: #### C DP, BMPX #### [facility] [address] [place] [address] Certified Neurodiagnostic Technologist: Darryl Granger MD GFR, Amer 43 mL/min Low >60 [facility] Comment on above: Performed By: #### C DP, BMPX #### [facility] [address] [place], [place] [phone] Certified Neurodiagnostic Technologist: Darryl Granger MD GFR,non Amer 36 mL/min Low >60 [facility] Comment on above: Performed By: #### C DP, BMPX #### [facility] [address] [place] [address] Certified Neurodiagnostic Technologist: Darryl Granger MD Glucose [Mass/Vol] 129 mg/dL High 70-99 [facility] Comment on above: Performed By: #### C DP, BMPX #### [facility] [address] [place] [address] Certified Neurodiagnostic Technologist: Darryl Granger MD Potassium [Moles/Vol] 6.1 mmol/L Critically high 3.7-5.3 [facility] Comment on above: Performed By: #### C DP, BMPX #### [facility] [address] [place] [address] Certified Neurodiagnostic Technologist: Darryl Gragner MD Sodium [Moles/Vol] 136 mmol/L Normal 135-144 [facility] Comment on above: Performed By: #### C DP, BMPX #### [facility] [address] [place] [address] Certified Neurodiagnostic Technologist: Darryl Grnager MD Urea nitrogen [Mass/Vol] 17 mg/dL Normal 8-23 [facility] Comment on above: Performed By: #### C DP, BMPX #### [facility] [address] [place] [address] Certified Neurodiagnostic Technologist: Darryl Granger MD Staging: NOT REPORTED Normal [facility] Comment on above: Performed By: #### C DP, BMPX #### [facility] [address] [place] [address] Certified Neurodiagnostic Technologist: Darryl Granger MD Basic Metabolic PanelOrdered By: Isaias Lowry on 01-09-2021 Anion gap [Moles/Vol] 6 mmol/L Low 9 - 17 mmol/L [facility] Work Phone: Calcium [Mass/Vol] 8.3 mg/dL Low 8.6 - 10.4 mg/dL [employer] Phone: Chloride [Moles/Vol] 103 mmol/L 98 - 107 mmol/L [facility]: CO2 [Moles/Vol] 26 mmol/L 20 - 31 mmol/L [facility] Phone: Creatinine [Mass/Vol] 1.38 mg/dL High 0.50 - 0.90 mg/dL [employer] Phone: GFR 46 mL/min Low >60 [employer] Phone: GFR Non- 38 mL/min Low >60 [facility] Phone: GFR/1.73 sq M.predicted MDRD (S/P/Bld) [Vol rate/Area] [facility] Phone: Comment on above: Average GFR for 70 o r more years old: 75 mL/min/1.73sq m Chronic Kidney Disease: <60 mL/min/1.73sq m Kidney failure: <15 mL/min/1.73sq m eGFR calculated using average adult body mass. Additional eGFR calculator available at: http://www.[employer]rix Online/multiple_crcl_2012.htm GFR/1.73 sq M.predicted MDRD (S/P/Bld) [Vol rate/Area] NOT REPORTED [facility] Phone: Glucose [Mass/Vol] 131 mg/dL High 70 - 99 mg/dL [facility] [employer] Work Phone: Interpretation and review of laboratory results Abnormal [facility] Phone: Potassium [Moles/Vol] 5.0 mmol/L 3.7 - 5.3 mmol /L [facility] Phone: Sodium [Moles/Vol] 135 mmol/L 135 - 144 mmol/L [facility] Phone: Urea nitrogen (BldV) [Mass/Vol] 16 mg/dL 8 - 23 mg/dL [employer] Phone: Urea nitrogen/Creatinine (Bld) [Mass ratio] 12 [employer] Phone: [employer] Phone: Basic Metabolic Panel w/ Ref ignacio to MGOrdered By: Isaias Lowry on 01-09-2021 Anion gap [Moles/Vol] 6 mmol/L Low 9 - 17 mmol/L [employer] Phone: Calcium [Mass/Vol] 8.9 mg/dL 8.6 - 10.4 mg/dL [employer] Phone: Chloride [Moles/Vol] 102 mmol/L 98 - 107 mmol/L [employer] Phone: CO2 [Moles/Vol] 28 mmol/L 20 - 31 mmol/L [employer] Phone: Creatinine [Mass/Vol] 1.45 mg/dL High 0.50 - 0.90 mg/dL [employer] Phone: GFR 43 mL/min Low >60 [employer] Phone: GFR Non- 36 mL/min Low >60 [employer] Phone: GFR/1.73 sq M.predicted MDRD (S/P/Bld) [Vol rate/Area] [employer] Phone: Comment on above: Average GFR for 70 o r more years old: 75 mL/min/1.73sq m Chronic Kidney Disease: <60 mL/min/1.73sq m Kidney failure: <15 mL/min/1.73sq m eGFR calculated using average adult body mass. Additional eGFR calculator available at: http://www.Egnyte.com/multiple_crcl_2012.htm GFR/1.73 sq M.predicted MDRD (S/P/Bld) [Vol rate/Area] NOT REPORTED [employer] Phone: Glucose [Mass/Vol] 129 mg/dL High 70 - 99 mg/dL [facility] Phone: Interpretation and review of laboratory results Abnormal [facility] Phone: Potassium [Moles/Vol] 6.1 mmol/L Critically high 3.7 - 5.3 mmol/L [facility] Phone: Sodium [Moles/Vol] 136 mmol/L 135 - 144 mmol/L [facility] Phone: Urea nitrogen (BldV) [Mass/Vol] 17 mg/dL 8 - 23 mg/dL [facility] Phone: Urea nitrogen/Creatinine (Bld) [Mass ratio] 12 [facility] Phone: [facility] Phone: Basic Metabolic Profon 01-09 (cont.) Normal [facility] Comment on above: Result Comment: Aver age GFR for 70 or more years old: 75 mL/min/1.73sq m Chronic Kidney Disease: <60 mL/min/1.73sq m Kidney failure: <15 mL/min/1.73sq m eGFR calculated using average adult body mass. Additional eGFR calculator available at: http://www.Citrix Online/multiple_crcl_2012.htm Performed By: #### C DP, BMPX #### [facility] [address] [place] [address] Certified Neurodiagnostic Technologist: Darryl Granger MD Anion gap [Moles/Vol] 6 mmol/L Low 9-[address] [facility] Comment on above: Performed By: #### C DP, BMPX #### [facility] [address] [facility] [place] [address] Certified Neurodiagnostic Technologist: Darryl Granger MD BUN/CRE Ratio 12 Normal -20 [facility] Comment on above: Performed By: #### C DP, BMPX #### [facility] [address] [place] [address] Certified Neurodiagnostic Technologist: Darryl Granger MD Calcium [Mass/Vol] 8.3 mg/dL Low 8.6-10.4 [facility] Comment on above: Performed By: #### C DP, BMPX #### [facility] [address] [place] [address] Certified Neurodiagnostic Technologist: Darryl Granger MD Chloride [Moles/Vol] 103 mmol/L Normal 98-107 [facility] Comment on above: Performed By: #### C DP, BMPX #### [facility] [address] [place], [place] [phone] Certified Neurodiagnostic Technologist: Darryl Granger MD CO2 [Moles/Vol] 26 mmol/L Normal 20-31 [facility] Comment on above: Performed By: #### C DP, BMPX #### [facility] [address] [place] [address] Certified Neurodiagnostic Technologist: Darryl Granger MD Creatinine [Mass/Vol] 1.38 mg/dL High 0.50-0.[address] [facility] Comment on above: Performed By: #### C DP, BMPX #### [facility] [address] [place] [address] Certified Neurodiagnostic Technologist: Darryl Granger MD GFR, Amer 46 mL/min Low >60 [facility] Comment on above: Performed By: #### C DP, BMPX #### [facility] [address] [place], [place] [phone] Certified Neurodiagnostic Technologist: Darryl Granger MD GFR,non Amer 38 mL/min Low >60 [facility] Comment on above: Performed By: #### C DP, BMPX #### [facility] [address] [place] [address] Certified Neurodiagnostic Technologist: Darryl Granger MD Glucose [Mass/Vol] 131 mg/dL High 70-99 [facility] Comment on above: Performed By: #### C DP, BMPX #### [facility] [address] [place], [place] [phone] Certified Neurodiagnostic Technologist: Darryl Granger MD Potassium [Moles/Vol] 5.0 mmol/L Normal 3.7-5.[address] [facility] Comment on above: Performed By: #### C DP, BMPX #### [facility] [address] [place], [place] [phone] Certified Neurodiagnostic Technologist: Darryl Granger MD Sodium [Moles/Vol] 135 mmol/L Normal 135-144 [facility] Comment on above: Performed By: #### C DP, BMPX #### [facility] [address] [place], [place] [phone] Certified Neurodiagnostic Technologist: Darryl Granger MD Urea nitrogen [Mass/Vol] 16 mg/dL Normal 8-23 [facility] Comment on above: Performed By: #### C DP, BMPX #### [facility] [address] [place], [place] [phone] Certified Neurodiagnostic Technologist: Darryl Granger MD Staging: NOT REPORTED Normal [facility] Comment on above: Performed By: #### C DP, BMPX #### [facility] [address] [place], [place] [phone] Certified Neurodiagnostic Technologist: Darryl Granger MD CBC auto differentialOrdered By: Isaias Lowry on 01-09-2021 [employer] # 0.00 [facility] Work Phone: Absolute Immature Granulocyte NOT REPORTED [facility] Work Phone: Absolute Lymph # 1.30 [facility] Work Phone: Absolute [place] # 0.70 [facility] Work Phone: Basophils (Bld) [#/Vol] 0.00 10*3/uL [facility] Work Phone: Basophils/100 WBC (Bld) 0 % 0 - 2 % [employer] Phone: Differential Type YES [employer] Work Phone: Eosinophils/100 WBC (Bld) 0 % 0 - 5 % [employer] Phone: Hematocrit (Bld) [Volume fraction] 28.6 % Low 36 - 46 % [employer] Phone: Hemoglobin.gastrointe stinal spec 1 Ql (Stl) 9.4 g/dL Low 12.0 - 16.0 g/dL [employer] Phone: Immature Granulocytes NOT REPORTED 0 % M [employer] Phone: Interpretation and review of laboratory results Abnormal [employer] Phone: Lymphocytes/100 WBC (Bld) 14 % Low 15 - 40 % [employer] Phone: MCH (RBC) [Entitic mass] 27.7 pg 26 - 34 pg [employer] Phone: MCHC (RBC) [Mass/Vol] 32.8 g/dL 31 - 37 g/dL [employer] Phone: MCV (RBC) [Entitic vol] 84.4 fL 80 - 100 fL [employer] Phone: Monocytes/100 WBC (Bld) 7 % 4 - 8 % [employer] Phone: NRBC Automated NOT REPORTED per 100 WBC [employer] Work Phone: Platelet distribution width (Bld) [Ratio] 15.2 % 12.1 - 15.2 % [employer] Phone: Platelet Estimate NOT REPORTED [employer] Phone: Platelet mean volume (Bld) [Entitic vol] NOT REPORTED 6.0 - 12.0 fL [employer] Phone: Platelets (Bld) [#/Vol] 178 10*3/uL [employer] Phone: RBC (Bld) [#/Vol] 3.39 10*6/uL Low 4.0 - 5.2 m/uL [facility] Work Phone: RBC (Bld) [#/Vol] NOT REPORTED [facility] Phone: Segmented neutrophils/100 WBC (Bld) 79 % High 47 - 75 % [employer] Work Phone: Segs Absolute 7.80 High [facility] [employer] Work Phone: WBC (Bld) [#/Vol] 9.8 10*3/uL [employer] Work Phone: WBC (Bld) [#/Vol] NOT REPORTED [facility] Phone: [facility] Work Phone: CBC with Diffon 01-09-2021 Abs. Basophil 0.00 k/uL Normal 0.0-0.2 [facility] Comment on above: Performed By: #### C DP, BMPX #### [facility] [address] [place] [address] Certified Neurodiagnostic Technologist: Darryl Granger MD Abs.Neutrophil (Seg) 7.80 k/uL High 2.5-7.0 [facility] Comment on above: Performed By: #### C DP, BMPX #### [facility] [address] [place] [phone] Certified Neurodiagnostic Technologist: Darryl Granger MD Auto Diff Performed YES Normal [facility] Comment on above: Performed By: #### C DP, BMPX #### [facility] [address] [place] [phone] Certified Neurodiagnostic Technologist: Darryl Granger MD Basophils/100 WBC (Bld) 0 % Normal 0-2 [facility] Comment on above: Performed By: #### C DP, BMPX #### [facility] [address] [place] [address] Certified Neurodiagnostic Technologist: Darryl Granger MD Eosinophils (Bld) [#/Vol] 0.00 10*3/uL Normal 0.0-0.4 [facility] Comment on above: Performed By: #### C DP, BMPX #### [facility] [address] [place] [address] Certified Neurodiagnostic Technologist: Darryl Granger MD Eosinophils/100 WBC (Bld) 0 % Normal 0-5 [facility] Comment on above: Performed By: #### C DP, BMPX #### [facility] [address] [place] [address] Certified Neurodiagnostic Technologist: Darryl Granger MD Erythrocyte distribution width (RBC) [Ratio] 15.2 % Normal 12.1-15.2 [facility] Comment on above: Performed By: #### C DP, BMPX #### [facility] [address] [place] [phone] Certified Neurodiagnostic Technologist: Darryl Granger MD Hematocrit (Bld) [Volume fraction] 28.6 % Low 36-46 [facility] Comment on above: Performed By: #### C DP, BMPX #### [facility] [address] [place] [phone] Certified Neurodiagnostic Technologist: Darryl Granger MD Hemoglobin (Bld) [Mass/Vol] 9.4 g/dL Low 12.0-16.0 [facility] Comment on above: Performed By: #### C DP, BMPX #### [facility] [address] [place] [phone] Certified Neurodiagnostic Technologist: Darryl Granger MD Lymphocytes (Bld) [#/Vol] 1.30 10*3/uL Normal 1.0-4.8 [facility] Comment on above: Performed By: #### C DP, BMPX #### [facility] [address] [place] [phone] Certified Neurodiagnostic Technologist: Darryl Granger MD Lymphocytes/100 WBC (Bld) 14 % Low 15-40 [facility] Comment on above: Performed By: #### C DP, BMPX #### [facility] [address] [place], [place] [phone] Certified Neurodiagnostic Technologist: Darryl Granger MD MCH (RBC) [Entitic mass] 27.7 pg Normal 26-34 [facility] Comment on above: Performed By: #### C DP, BMPX #### [facility] [address] [place] [address] Certified Neurodiagnostic Technologist: Darryl Granger MD MCHC (RBC) [Mass/Vol] 32.8 g/dL Normal 31-[address] [facility] Comment on above: Performed By: #### C DP, BMPX #### [facility] [address] [place] [phone] Certified Neurodiagnostic Technologist: Darryl Granger MD MCV (RBC) [Entitic vol] 84.4 fL Normal 80-100 [facility] Comment on above: Performed By: #### C DP, BMPX #### [facility] [address] [place] [phone] [phone] Certified Neurodiagnostic Technologist: Darryl Granger MD Monocytes (Bld) [#/Vol] 0.70 10*3/uL Normal 0.0-1.0 [facility] Comment on above: Performed By: #### C DP, BMPX #### [facility] [address] [place], [place] [phone] ([phone] Certified Neurodiagnostic Technologist: Darryl Granger MD Monocytes/100 WBC (Bld) 7 % Normal 4-8 [facility] Comment on above: Performed By: #### C DP, BMPX #### [facility] [address] [place] [address] Certified Neurodiagnostic Technologist: Darryl Granger MD Neutrophil (Seg) 79 % High 47-75 [facility] Comment on above: Performed By: #### C DP, BMPX #### [facility] [address] [place] [phone] Certified Neurodiagnostic Technologist: Darryl Granger MD Platelets (Bld) [#/Vol] 178 10*3/uL Normal 140-450 [facility] Comment on above: Performed By: #### C DP, BMPX #### [facility] [address] [place] [phone] Certified Neurodiagnostic Technologist: Darryl Granger MD RBC (Bld) [#/Vol] 3.39 10*6/uL Low 4.0-5.2 [facility] Comment on above: Performed By: #### C DP, BMPX #### [facility] [address] [place] [address] Certified Neurodiagnostic Technologist: Darryl Granger MD WBC (Bld) [#/Vol] 9.8 10*3/uL Normal 3.5-11.0 [facility] Comment on above: Performed By: #### C DP, BMPX #### [facility] [address] [place] [address] Certified Neurodiagnostic Technologist: Darryl Granger MD Abs.Imm.Granulocyte NOT REPORTED Normal 0.00-0.[address] [facility] Comment on above: Performed By: #### C DP, BMPX #### [facility] [address] [place] [address] Certified Neurodiagnostic Technologist: Darryl Granger MD Immature Granulocyte NOT REPORTED Normal 0 [facility] Comment on above: Performed By: #### C DP, BMPX #### [facility] [address] [place] [address] Certified Neurodiagnostic Technologist: Darryl Granger MD MPV NOT REPORTED Normal 6.0-12.0 [facility] Comment on above: Performed By: #### C DP, BMPX #### [facility] [address] [place] [address] Certified Neurodiagnostic Technologist: Darryl Granger MD NRBC Automated NOT REPORTED Normal [facility] Comment on above: Performed By: #### C DP, BMPX #### [facility] [address] [place] [address] Certified Neurodiagnostic Technologist: Darryl Granger MD Platelet Estimate NOT REPORTED Normal [facility] Comment on above: Performed By: #### C DP, BMPX #### [facility] [address] [place] [address] Certified Neurodiagnostic Technologist: Darryl Granger MD RBC morphology finding Nom (Bld) NOT REPORTED Normal [facility] Comment on above: Performed By: #### C DP, BMPX #### [facility] [address] [place] [address] Certified Neurodiagnostic Technologist: Darryl Granger MD WBC Morphology NOT REPORTED Normal [facility] Comment on above: Performed By: #### C DP, BMPX #### [facility] [address] [place] [address] Certified Neurodiagnostic Technologist: Darryl Granger MD COVID-19, RapidOrdered By: Mickey Lowry on 01-09-2021 SARS-CoV-2 (COVID-19) RNA MARTIN+probe Ql (Unsp spec) Not detected Not Detected [facility] Work Phone: Comment on above: Rapid NAAT: The specimen is NEGATIVE for SARS-CoV-2, the novel coronavirus associated with COVID-19. The ID NOW COVID-19 assay is designed to detect the virus that causes COVID-19 in patients with signs and symptoms of infection who are suspected of COVID-19. An individual without symptoms of COVID-19 and who is not shedding SARS-CoV-2 virus would expect to have a negative (not detected) result in this assay. Negative results should be treated as presumptive and, if inconsistent with clinical signs and symptoms or necessary for patient management, should be tested with an alternative molecular assay. Negative results do not preclude SARS-CoV-2 infection and should not be used as the sole basis for patient management decisions. Fact sheet for Healthcare Providers: https://www.fda.gov/media/664913/download Fact sheet for Patients: https://www.fda.gov/media/996480/download Methodology: Isothermal Nucleic Acid Amplification Specimen Description .NASOPHARYNGEAL SWAB [employer] Phone: [employer] Phone: EKG 12 LeadOrdered By: Tony Calabrese on 01-09-2021 Atrial Rate 86 BPM [employer] Phone: P [place] 76 degrees [employer] Phone: P-R Interval 130 ms [employer] Phone: Q-T Interval 402 ms [employer] Phone: QRS Duration 84 ms [employer] Phone: QTc Calculation (Bazett) 481 ms [employer] Phone: R [place] 74 degrees [employer] Phone: T [place] 67 degrees [employer] Phone: Ventricular Rate [address] [employer] Phone: Normal sinus rhythm Normal ECG [employer] Phone: Paul, pn Incoming Ekg Results From [employer] [place] - 01/09/2021 6:35 AM EDT Normal sinus rhythm Normal ECG [employer] Phone: [employer] Phone: [place] LESS THAN 1 HOURon 2020 [place] LESS THAN 1 HOUR Radiology exam is complete. No Radiologist dictation. Please follow up with ordering provider. Final result Normal [facility] [place] LESS THAN 1 HOUROrdered B y: Eugene Viviana on 01-09-2021 Radiology exam is complete. No Radiologist dictation. Please follow up with ordering provider. [employer] Phone: [employer] Work Phone: Microscopic UrinalysisOrdere d By: Isaias Lowry on 01-09-2021 - [employer] Work Phone: Amorphous, UA NOT REPORTED None [facility] Work Phone: Bacteria, UA 1+ Abnormal None [employer] Work Phone: Casts UA 2 TO 5 HYALINE /LPF [facility] Work Phone: Casts UA 2 TO 5 FINE GRANULAR /LPF [facility] Work Phone: Crystals, UA NOT REPORTED None /HPF [facility] Work Phone: Epithelial Cells UA 0 TO 2 /HPF [facility] Work Phone: Interpretation and review of laboratory results Abnormal [facility] Work Phone: Mucus, UA RARE Abnormal None [employer] Work Phone: Other Observations UA NOT REPORTED Abnormal NOT REQ. M [facility] [employer] Work Phone: RBC, UA 5 TO 10 [facility] Work Phone: Renal Epithelial, UA 2 TO 5 0 /HPF [employer] Work Phone: Trichomonas, UA NOT REPORTED None [facility]alt Work Phone: WBC, UA 5 TO 10 0 /HPF [facility] Work Phone: Yeast, UA NOT REPORTED None [facility] Work Phone: [facility] Work Phone: [id number] 01-09-2021 SARS-CoV-2 (COVID-19) RNA MARTIN+probe Ql (Unsp spec) Not detected Normal [facility] Comment on above: Result Comment: Rapid NAAT: The specimen is NEGATIVE for SARS-CoV-2, the novel coronavirus associated with COVID-19. The ID NOW COVID-19 assay is designed to detect the virus that causes COVID-19 in patients with signs and symptoms of infection who are suspected of COVID-19. An individual without symptoms of COVID-19 and who is not shedding SARS-CoV-2 virus would expect to have a negative (not detected) result in this assay. Negative results should be treated as presumptive and, if inconsistent with clinical signs and symptoms or necessary for patient management, should be tested with an alternative molecular assay. Negative results do not preclude SARS-CoV-2 infection and should not be used as the sole basis for patient management decisions. Fact sheet for Healthcare Providers: https://www.fda.gov/media/541736/download Fact sheet for Patients: https://www.fda.gov/media/463263/download Methodology: Isothermal Nucleic Acid Amplification Performed By: #### C OVRB #### [facility] [address], [place] [id number] Certified Neurodiagnostic Technologist: Darryl Granger MD UA w/Reflex Cultureon 2020 Bilirubin, SemiQt,Ur Negative Normal NEG [facility] Comment on above: Performed By: #### C DP, BMPX #### [facility] [address] [place] [address] Certified Neurodiagnostic Technologist: Darryl Granger MD Blood, Urine 2+ Abnormal NEG [facility] Comment on above: Performed By: #### C DP, BMPX #### [facility] [address] [place] [address] Certified Neurodiagnostic Technologist: Darryl Granger MD Clarity (U) HAZY Abnormal CLEAR [facility] Comment on above: Performed By: #### C DP, BMPX #### [facility] [address] [place] [address] Certified Neurodiagnostic Technologist: Darryl Granger MD Color (U) YELLOW Normal YEL [facility] Comment on above: Performed By: #### C DP, BMPX #### [facility] [address] [place] [address] Certified Neurodiagnostic Technologist: Darryl Granger MD Comment Normal [facility] Comment on above: Performed By: #### C DP, BMPX #### [facility] [address] [place] [address] Certified Neurodiagnostic Technologist: Darryl Granger MD Glucose Ql (U) Negative Normal NEG [facility] Comment on above: Performed By: #### C DP, BMPX #### [facility] [address] [place] [address] Certified Neurodiagnostic Technologist: Darryl Granger MD Ketones Ql (U) Negative Normal NEG [facility] Comment on above: Performed By: #### C DP, BMPX #### [facility] [address] [place] [address] Certified Neurodiagnostic Technologist: Darryl Granger MD Leukocyte esterase Test strip Ql (U) Negative Normal NEG [facility] Comment on above: Performed By: #### C DP, BMPX #### [facility] [address] [place] [address] Certified Neurodiagnostic Technologist: Darryl Granger MD Nitrite,Ur Negative Normal NEG [facility] Comment on above: Performed By: #### C DP, BMPX #### [facility] [address] [place] [address] Certified Neurodiagnostic Technologist: Darryl Granger MD PH,Ur 5.0 Normal 5.0-8.0 [facility] Comment on above: Performed By: #### C DP, BMPX #### [facility] [address] [place] [address] Certified Neurodiagnostic Technologist: Darryl Granger MD Protein Ql (U) 1+ Abnormal NEG [facility] Comment on above: Performed By: #### C DP, BMPX #### [facility] [address] [place] [address] Certified Neurodiagnostic Technologist: Darryl Granger MD Spec. Perrin,Ur 1.025 Normal 1.005-1.030 [facility] Comment on above: Performed By: #### C DP, BMPX #### [facility] [address] [place] [address] Certified Neurodiagnostic Technologist: Darryl Granger MD Urobilinogen,Ur Normal Normal NORM [facility] Comment on above: Performed By: #### C DP, BMPX #### [facility] [address] [place] [address] Certified Neurodiagnostic Technologist: Darryl Granger MD Urinalysis Reflex to Culture Ordered By: Isaias Lowry on 01-09-2021 Bilirubin Urine Negative NEGATIVE [facility] Work Phone: Color, UA YELLOW YELLOW [facility] Work Phone: Glucose, Ur Negative NEGATIVE [employer] Work Phone: Interpretation and review of laboratory results Abnormal [employer] Work Phone: Ketones Ql (U) Negative NEGATIVE [employer] Work Phone: Leukocyte esterase Test strip Ql (U) Negative NEGATIVE [employer] Phone: Nitrite, Urine Negative NEGATIVE [employer] Work Phone: pH, UA 5.0 [employer] Work Phone: Protein, UA 1+ Abnormal NEGATIVE [employer] Work Phone: Specific Perrin, UA 1.025 [employer] Work Phone: Turbidity UA HAZY Abnormal CLEAR [employer] Work Phone: Urinalysis Comments [facility] Work Phone: Urine Hgb 2+ Abnormal NEGATIVE [employer] Phone: Urobilinogen, Urine Normal Normal [facility] Work Phone: [employer] Work Phone: Urinalysis,Microon 1 ----- Normal [facility] Comment on above: Performed By: #### H H #### [facility] [address], [place] [id number] Certified Neurodiagnostic Technologist: Darryl Granger MD Bacteria 1+ Abnormal [facility] Comment on above: Performed By: #### H H #### [facility] [address], [place] [phone] Certified Neurodiagnostic Technologist: Darryl Granger MD Casts 2 TO 5 [facility] Comment on above: Result Comment: HYAL INE 2 TO 5 FINE GRANULAR Performed By: #### H H #### [facility] [address], [place] [phone] Certified Neurodiagnostic Technologist: Darryl Granger MD Epithelial cells LM Ql (Urine sed) 0 TO 2 [facility] Comment on above: Performed By: #### H H #### [facility] [address], [place] [phone] Certified Neurodiagnostic Technologist: Darryl Granger MD Epithelial, Renal 2 TO 5 Normal 0 [facility] Comment on above: Performed By: #### H H #### [facility] [address], [place] [phone] Certified Neurodiagnostic Technologist: Darryl Granger MD Mucus Strands RARE Abnormal NONE [facility] Comment on above: Performed By: #### H H #### [facility] [address], [place] [phone] Certified Neurodiagnostic Technologist: Darryl Granger MD Urine RBC's 5 TO 10 Normal 0-2 [facility] Comment on above: Performed By: #### H H #### [facility] [address], [place] [phone] Certified Neurodiagnostic Technologist: Darryl Granger MD Urine WBC's 5 TO 10 Normal 0 [facility] Comment on above: Performed By: #### H H #### [facility] [address], [place] [phone] Certified Neurodiagnostic Technologist: Darryl Granger MD Amorphous sediment LM Ql (Urine sed) NOT REPORTED Normal [facility] Comment on above: Performed By: #### H H #### [facility] [address], [place] [phone] Certified Neurodiagnostic Technologist: Darryl Granger MD Crystals LM Nom (Urine sed) NOT REPORTED Normal NONE [facility] Comment on above: Performed By: #### H H #### [facility] [address], [place] [phone] Certified Neurodiagnostic Technologist: Darryl Granger MD Other Observations NOT REPORTED [facility] Comment on above: Performed By: #### H H #### [facility] [address], [place] [phone] Certified Neurodiagnostic Technologist: Darryl Granger MD Trichomonas NOT REPORTED Normal NONE [facility] Comment on above: Performed By: #### H H #### [facility] [address], [place] [phone] Certified Neurodiagnostic Technologist: Darryl Granger MD Yeast NOT REPORTED Normal NONE [facility] Comment on above: Performed By: #### H H #### [facility] [address], [place] [phone] Certified Neurodiagnostic Technologist: Darryl Granger MD APTTon 01-08-2021 aPTT Coag (Bld) [Time] 26.9 s Normal 23.9-33.8 [facility] Comment on above: Result Comment: IV Heparin Therapy Range: 62.0-94.0 Performed By: #### C DP, BMPX #### [facility] [address] [place] [address] Certified Neurodiagnostic Technologist: Daryrl Granger MD APTTOrdered By: Jaclyn Calabrese on 01-08-2021 aPTT Coag (Bld) [Time] 26.9 s [facility] Phone: Comment on above: IV Heparin Therapy Range: 62.0-94.0 Basic Metab w/rfx MGon 01-08 (cont.) Normal [facility] Comment on above: Result Comment: Aver age GFR for 70 or more years old: 75 mL/min/1.73sq m Chronic Kidney Disease: <60 mL/min/1.73sq m Kidney failure: <15 mL/min/1.73sq m eGFR calculated using average adult body mass. Additional eGFR calculator available at: http://www.[employer]/multiple_crcl_2011.htm Performed By: #### C DP, BMPX #### [facility] [address], [place] [phone] Certified Neurodiagnostic Technologist: Darryl Granger MD BUN/CRE Ratio 9 Normal 9-20 [facility] Comment on above: Performed By: #### C DP, BMPX #### [facility] [address], [place] [phone] Certified Neurodiagnostic Technologist: Darryl Granger MD GFR, Amer 40 mL/min Low >60 [facility] Comment on above: Performed By: #### C DP, BMPX #### [facility] [address], [place] [phone] Certified Neurodiagnostic Technologist: Darryl Granger MD GFR,non Amer 33 mL/min Low >60 [facility] Comment on above: Performed By: #### C DP, BMPX #### [facility] [address], [place] [phone] Certified Neurodiagnostic Technologist: Darryl Granger MD Urea nitrogen [Mass/Vol] 14 mg/dL Normal 8-23 [facility] Comment on above: Performed By: #### C DP, BMPX #### [facility] [address], [place] [phone] Certified Neurodiagnostic Technologist: Darryl Granger MD Staging: NOT REPORTED Normal [facility] Comment on above: Performed By: #### C DP, BMPX #### [facility] [address] [place] [address] Certified Neurodiagnostic Technologist: Darryl Granger MD Basic Metab w/rfx MGOrdered By: Jaclyn Calabrese on 01-08-2021 Anion gap [Moles/Vol] 13 mmol/L Normal 9-17 [facility] [employer] Work Phone: Comment on above: Performed By: #### C DP, BMPX #### [facility] [address] [place] [address] Certified Neurodiagnostic Technologist: Darryl Granger MD Calcium [Mass/Vol] 9.3 mg/dL Normal 8.6-10.4 [facility] Work Phone: Comment on above: Performed By: #### C DP, BMPX #### [facility] [address] [place] [address] Certified Neurodiagnostic Technologist: Darryl Granger MD Chloride [Moles/Vol] 100 mmol/L Normal 98-107 [facility] Work Phone: Comment on above: Performed By: #### C DP, BMPX #### [facility] [address] [place] [address] Certified Neurodiagnostic Technologist: Darryl Granger MD CO2 [Moles/Vol] 23 mmol/L Normal 20-31 [facility] Work Phone: Comment on above: Performed By: #### C DP, BMPX #### [facility] [address] [place] [address] Certified Neurodiagnostic Technologist: Darryl Granger MD Creatinine [Mass/Vol] 1.54 mg/dL High 0.50-0.90 [facility] [employer] Work Phone: Comment on above: Performed By: #### C DP, BMPX #### [facility] [address] [place] [address] Certified Neurodiagnostic Technologist: Darryl Granger MD Glucose [Mass/Vol] 150 mg/dL High 70-99 [facility] Work Phone: Comment on above: Performed By: #### C DP, BMPX #### [facility] [address] [place] [address] Certified Neurodiagnostic Technologist: Darryl Granger MD Potassium [Moles/Vol] 3.9 mmol/L Normal 3.7-5.3 [facility] [employer] Work Phone: Comment on above: Performed By: #### C DP, BMPX #### [facility] [address] [place] [address] Certified Neurodiagnostic Technologist: Darryl Granger MD Sodium [Moles/Vol] 136 mmol/L Normal 135-144 [facility] Work Phone: Comment on above: Performed By: #### C DP, BMPX #### [facility] [address] [place] [address] Certified Neurodiagnostic Technologist: Darryl Granger MD Basic Metabolic Panel w/ Ref ignacio to MGOrdered By: Jaclyn Calabrese on 01-08-2021 GFR 40 mL/min Low >60 [facility] Work Phone: GFR Non- 33 mL/min Low >60 [facility] Work Phone: GFR/1.73 sq M.predicted MDRD (S/P/Bld) [Vol rate/Area] [facility] Work Phone: Comment on above: Average GFR for 70 o r more years old: 75 mL/min/1.73sq m Chronic Kidney Disease: <60 mL/min/1.73sq m Kidney failure: <15 mL/min/1.73sq m eGFR calculated using average adult body mass. Additional eGFR calculator available at: http://www.[employer]/multiple_crcl_2012.htm GFR/1.73 sq M.predicted MDRD (S/P/Bld) [Vol rate/Area] NOT REPORTED [employer] Work Phone: Interpretation and review of laboratory results Abnormal [employer] Work Phone: Urea nitrogen (BldV) [Mass/Vol] 14 mg/dL 8 - 23 mg/dL [employer] Work Phone: Urea nitrogen/Creatinine (Bld) [Mass ratio] 9 [facility] Work Phone: [facility] Work Phone: CBC Auto DifferentialOrdered By: Jaclyn Calabrese on 01-08-2021 [employer] # 0.10 [facility] [facility] [facility] Work Phone: Absolute Immature Granulocyte NOT REPORTED [facility] Work Phone: Absolute Lymph # 3.90 [employer] [facility] Work Phone: [employer] [place] # 0.50 [employer] [facility] Work Phone: Basophils (Bld) [#/Vol] 0.00 10*3/uL [facility] Work Phone: Basophils/100 WBC (Bld) 0 % 0 - 2 % [facility] Work Phone: Differential Type YES [facility] Work Phone: Eosinophils/100 WBC (Bld) 1 % 0 - 5 % [facility] Work Phone: Hematocrit (Bld) [Volume fraction] 34.7 % Low 36 - 46 % [facility] Work Phone: Hemoglobin.gastrointe stinal spec 1 Ql (Stl) 11.5 g/dL Low 12.0 - 16.0 g/dL [employer] Work Phone: Immature Granulocytes NOT REPORTED 0 % [facility] [employer] Work Phone: Interpretation and review of laboratory results Abnormal [facility] Work Phone: Lymphocytes/100 WBC (Bld) 41 % High 15 - 40 % [employer] Work Phone: MCH (RBC) [Entitic mass] 28.2 pg 26 - 34 pg [employer] Work Phone: MCHC (RBC) [Mass/Vol] 33.3 g/dL 31 - 37 g/dL [facility] [employer] Work Phone: MCV (RBC) [Entitic vol] 84.8 fL 80 - 100 fL [employer] Work Phone: Monocytes/100 WBC (Bld) 5 % 4 - 8 % [employer] Work Phone: NRBC Automated NOT REPORTED per 100 WBC [employer] Work Phone: Platelet distribution width (Bld) [Ratio] 15.9 % High 12.1 - 15.2 % [employer] Work Phone: Platelet Estimate NOT REPORTED [employer] Phone: Platelet mean volume (Bld) [Entitic vol] NOT REPORTED 6.0 - 12.0 fL [employer] Work Phone: Platelets (Bld) [#/Vol] 215 10*3/uL [employer] Phone: RBC (Bld) [#/Vol] 4.09 10*6/uL 4.0 - 5.2 m/uL [facility] [employer] Work Phone: RBC (Bld) [#/Vol] NOT REPORTED [employer] Work Phone: Segmented neutrophils/100 WBC (Bld) 53 % 47 - 75 % [employer] Work Phone: Segs Absolute 5.10 [employer] Work Phone: WBC (Bld) [#/Vol] 9.6 10*3/uL [employer] Work Phone: WBC (Bld) [#/Vol] NOT REPORTED [facility] Work Phone: [facility] Work Phone: CBC with Diffon 01-08-2021 Abs. Basophil 0.00 k/uL Normal 0.0-0.2 [facility] Comment on above: Performed By: #### C DP, BMPX #### [facility] [address] [place] [phone] Certified Neurodiagnostic Technologist: Darryl Granger MD Abs.Neutrophil (Seg) 5.10 k/uL Normal 2.5-7.0 [facility] Comment on above: Performed By: #### C DP, BMPX #### [facility] [address] [place] [address] Certified Neurodiagnostic Technologist: Darryl Granger MD Auto Diff Performed YES Normal [facility] Comment on above: Performed By: #### C DP, BMPX #### [facility] [address] [place] [address] Certified Neurodiagnostic Technologist: Darryl Granger MD Basophils/100 WBC (Bld) 0 % Normal 0-2 [facility] Comment on above: Performed By: #### C DP, BMPX #### [facility] [address] [place] [address] Certified Neurodiagnostic Technologist: Darryl Granger MD Eosinophils (Bld) [#/Vol] 0.10 10*3/uL Normal 0.0-0.4 [facility] Comment on above: Performed By: #### C DP, BMPX #### [facility] [address] [place] [phone] Certified Neurodiagnostic Technologist: Darryl Granger MD Eosinophils/100 WBC (Bld) 1 % Normal 0-5 [facility] Comment on above: Performed By: #### C DP, BMPX #### [facility] [address] [place] [phone] Certified Neurodiagnostic Technologist: Darryl Granger MD Erythrocyte distribution width (RBC) [Ratio] 15.9 % High 12.1-15.2 [facility] Comment on above: Performed By: #### C DP, BMPX #### [facility] [address] [place] [address] Certified Neurodiagnostic Technologist: Darryl Granger MD Hematocrit (Bld) [Volume fraction] 34.7 % Low 36-46 [facility] Comment on above: Performed By: #### C DP, BMPX #### [facility] [address] [place] [phone] Certified Neurodiagnostic Technologist: Darryl Granger MD Hemoglobin (Bld) [Mass/Vol] 11.5 g/dL Low 12.0-16.0 [facility] Comment on above: Performed By: #### C DP, BMPX #### [facility] [address] [place] [phone] Certified Neurodiagnostic Technologist: Darryl Granger MD Lymphocytes (Bld) [#/Vol] 3.90 10*3/uL Normal 1.0-4.8 [facility] Comment on above: Performed By: #### C DP, BMPX #### [facility] [address] [place] [address] Certified Neurodiagnostic Technologist: Darryl Granger MD Lymphocytes/100 WBC (Bld) 41 % High 15-40 [facility] Comment on above: Performed By: #### C DP, BMPX #### [facility] [address] [place] [phone] Certified Neurodiagnostic Technologist: Darryl Granger MD MCH (RBC) [Entitic mass] 28.2 pg Normal 26-34 [facility] Comment on above: Performed By: #### C DP, BMPX #### [facility] [address] [place] [phone] Certified Neurodiagnostic Technologist: Darryl Granger MD MCHC (RBC) [Mass/Vol] 33.3 g/dL Normal 31-[address] [facility] Comment on above: Performed By: #### C DP, BMPX #### [facility] [address] [place] [address] Certified Neurodiagnostic Technologist: Darryl Granger MD MCV (RBC) [Entitic vol] 84.8 fL Normal 80-100 [facility] Comment on above: Performed By: #### C DP, BMPX #### [facility] [address] [place] [address] Certified Neurodiagnostic Technologist: Darryl Granger MD Monocytes (Bld) [#/Vol] 0.50 10*3/uL Normal 0.0-1.0 [facility] Comment on above: Performed By: #### C DP, BMPX #### [facility] [address] [place] [address] Certified Neurodiagnostic Technologist: Darryl Granger MD Monocytes/100 WBC (Bld) 5 % Normal 4-8 [facility] Comment on above: Performed By: #### C DP, BMPX #### [facility] [address] [place] [address] Certified Neurodiagnostic Technologist: Darryl Granger MD Neutrophil (Seg) 53 % Normal 47-75 [facility] Comment on above: Performed By: #### C DP, BMPX #### [facility] [address] [place] [address] Certified Neurodiagnostic Technologist: Darryl Granger MD Platelets (Bld) [#/Vol] 215 10*3/uL Normal 140-450 [facility] Comment on above: Performed By: #### C DP, BMPX #### [facility] [address] [place] [address] Certified Neurodiagnostic Technologist: Darryl Granger MD RBC (Bld) [#/Vol] 4.09 10*6/uL Normal 4.0-5.2 [facility] Comment on above: Performed By: #### C DP, BMPX #### [facility] [address] [place] [phone] Certified Neurodiagnostic Technologist: Darryl Granger MD WBC (Bld) [#/Vol] 9.6 10*3/uL Normal 3.5-11.0 [facility] Comment on above: Performed By: #### C DP, BMPX #### [facility] [address] [place] [address] Certified Neurodiagnostic Technologist: Darryl Granger MD Abs.Imm.Granulocyte NOT REPORTED Normal 0.00-0.[address] [facility] Comment on above: Performed By: #### C DP, BMPX #### [facility] [address] [place] [address] Certified Neurodiagnostic Technologist: Darryl Granger MD Immature Granulocyte NOT REPORTED Normal 0 [facility] Comment on above: Performed By: #### C DP, BMPX #### [facility] [address] [place] [address] Certified Neurodiagnostic Technologist: Darryl Granger MD MPV NOT REPORTED Normal 6.0-12.0 [facility] Comment on above: Performed By: #### C DP, BMPX #### [facility] [address] [place] [phone] Certified Neurodiagnostic Technologist: Darryl Granger MD NRBC Automated NOT REPORTED Normal [facility] Comment on above: Performed By: #### C DP, BMPX #### [facility] [address] [place] [phone] Certified Neurodiagnostic Technologist: Darryl Granger MD Platelet Estimate NOT REPORTED Normal [facility] Comment on above: Performed By: #### C DP, BMPX #### [facility] [address] [place] [address] Certified Neurodiagnostic Technologist: Darryl Granger MD RBC morphology finding Nom (Bld) NOT REPORTED Normal [facility] Comment on above: Performed By: #### C DP, BMPX #### [facility] [address], [place] [phone] Certified Neurodiagnostic Technologist: Darryl Granger MD WBC Morphology NOT REPORTED Normal [facility] Comment on above: Performed By: #### C DP, BMPX #### [facility] [address] [place] [address] Certified Neurodiagnostic Technologist: Darryl Granger MD No Panel InformationOrdered By: Jaclyn Calabrese on 01-08-2021 [facility] Work Phone: PTon 01-08-2021 INR Coag (PPP) [Relative time] 1.0 {INR} Normal [facility] Comment on above: Result Comment: Non-therapeutic Range: INR = 0.9-1.2 Therapeutic Range: Moderate Anticoagulant Intensity: INR = 2.0-3.0 High Anticoagulant Intensity: INR = 2.5-3.5 Performed By: #### C DP, BMPX #### [facility] [address] [place], [place] [phone] Certified Neurodiagnostic Technologist: Darryl Granger MD PT Coag (PPP) [Time] 12.6 s Normal 11.5-14.2 [facility] Comment on above: Performed By: #### C DP, BMPX #### [facility] [address] [place] [address] Certified Neurodiagnostic Technologist: Darryl Granger MD Protime-INROrdered By: Tony Calabrese on 01-08-2021 INR Coag (Bld) [Relative time] 1.0 {INR} [facility] CL[facility]VER Phone: Comment on above: Non-therapeutic Range: INR = 0.9-1.2 Therapeutic Range: Moderate Anticoagulant Intensity: INR = 2.0-3.0 High Anticoagulant Intensity: INR = 2.5-3.5 PT Coag (PPP) [Time] 12.6 s [facility] Phone: XR CHEST PORTABLEon 01-09-20 XR CHEST PORTABLE EXAM: XR CHEST PORTABLE HISTORY: Reason for exam:->pre-op COMPARISON: Two-view chest from 06/08/2012. TECHNIQUE: Portable chest was done at 7:40 PM. FINDINGS: Trachea is midline. Mediastinum is not widened. Heart size is unremarkable. The diaphragm and bony elements are intact. The lungs show hyperaeration without infiltrate or suspicious nodule or effusion. No pneumothorax is noted. There is a stable calcified granuloma the mid left lung field. IMPRESSION: 1. Nonacute portable chest. 2. Chronic changes and findings of mild COPD. Interpreted by: Ede Collazo DO Signed by: Ede Collazo DO 01/08/21 Final result Normal [facility] XR CHEST PORTABLEOrdered By: Jaclyn Calabrese on 01-08-2021 1. Nonacute portable chest. 2. Chronic changes and findings of mild COPD. [employer] Phone: EXAM: XR CHEST PORTABLE HISTORY: Reason for exam:->pre-op COMPARISON: Two-view chest from 06/08/2012. TECHNIQUE: Portable chest was done at 7:40 PM. FINDINGS: Trachea is midline. Mediastinum is not widened. Heart size is unremarkable. The diaphragm and bony elements are intact. The lungs show hyperaeration without infiltrate or suspicious nodule or effusion. No pneumothorax is noted. There is a stable calcified granuloma the mid left lung field. [employer] Phone: Paul, pn Incoming Radiant Results From [employer]express[employer] software - 01/08/2021 8:17 PM EDT EXAM: XR CHEST PORTABLE HISTORY: Reason for exam:->pre-op COMPARISON: Two-view chest from 06/08/2012. TECHNIQUE: Portable chest was done at 7:40 PM. FINDINGS: Trachea is midline. Mediastinum is not widened. Heart size is unremarkable. The diaphragm and bony elements are intact. The lungs show hyperaeration without infiltrate or suspicious nodule or effusion. No pneumothorax is noted. There is a stable calcified granuloma the mid left lung field. IMPRESSION: 1. Nonacute portable chest. 2. Chronic changes and findings of mild COPD. [employer] Phone: [employer] Phone: XR HIP 2-3 VW W PELVIS RIGHT on 01-08-2021 XR HIP 2-3 VW W PELVIS RIGHT EXAM: XR HIP 2-3 VW W PELVIS RIGHT HISTORY: The patient is a 70-year-old female with right hip pain after falling. COMPARISON: None. FINDINGS: There is a comminuted and slightly displaced intertrochanteric fracture of the proximal right femur. The lesser trochanteric fracture fragment is medially displaced approximately 1 cm. The right femoral head remains located within the acetabulum. I do not identify any displaced fractures of the proximal left femur or elsewhere throughout the bony pelvis. The widths and alignment of both hip joints are maintained. Both sacroiliac joints are maintained. The pubic symphysis is maintained. IMPRESSION: Comminuted intertrochanteric fracture of the proximal right femur. Interpreted by: Jorge L Benítez MD Signed by: Jorge L Benítez MD 01/08/21 Final result Normal [facility] XR HIP 2-3 VW W PELVIS RIGHT Ordered By: Jaclyn Calabrese on 01-08-2021 Comminuted intertrochanteric fracture of the proximal right femur. [employer] Phone: EXAM: XR HIP 2-3 VW W PELVIS RIGHT HISTORY: The patient is a 70-year-old female with right hip pain after falling. COMPARISON: None. FINDINGS: There is a comminuted and slightly displaced intertrochanteric fracture of the proximal right femur. The lesser trochanteric fracture fragment is medially displaced approximately 1 cm. The right femoral head remains located within the acetabulum. I do not identify any displaced fractures of the proximal left femur or elsewhere throughout the bony pelvis. The widths and alignment of both hip joints are maintained. Both sacroiliac joints are maintained. The pubic symphysis is maintained. [facility]: Paul, Mhpn Incoming Radiant Results From [employer]express[employer] software - 01/08/2021 7:47 PM EDT EXAM: XR HIP 2-3 VW W PELVIS RIGHT HISTORY: The patient is a 70-year-old female with right hip pain after falling. COMPARISON: None. FINDINGS: There is a comminuted and slightly displaced intertrochanteric fracture of the proximal right femur. The lesser trochanteric fracture fragment is medially displaced approximately 1 cm. The right femoral head remains located within the acetabulum. I do not identify any displaced fractures of the proximal left femur or elsewhere throughout the bony pelvis. The widths and alignment of both hip joints are maintained. Both sacroiliac joints are maintained. The pubic symphysis is maintained. IMPRESSION: Comminuted intertrochanteric fracture of the proximal right femur. [employer] Work Phone: [employer] Work Phone: Vital Signs Date Time Vital Sign Value Performing Clinician Facility 08-02-2023 10:48-0500 Blood Pressure Location Jaclyn CiDRA [facility] 08-02-2023 10:48-0500 Diastolic blood pressure 80 mm[Hg] Jacobychrista CiDRA [facility] 08-02-2023 10:48-0500 Heart rate 82 /min Jacobychrista CiDRA [facility] 08-02-2023 10:48-0500 SaO2% (BldA) [Mass fraction] 98 % ChristTigermedreal CiDRA [facility] 08-02-2023 10:48-0500 Systolic blood pressure 130 mm[Hg] JacobyTigermedreal CiDRA [facility] 08-02-2023 10:40-0500 Blood Pressure Location Jaclyn CiDRA [facility] 08-02-2023 10:40-0500 Diastolic blood pressure 80 mm[Hg] ChristTigermedreal CiDRA [facility] 08-02-2023 10:40-0500 Heart rate 82 /min JacobyTigermeder CiDRA [facility] 08-02-2023 10:40-0500 SaO2% (BldA) [Mass fraction] 98 % JacobyTigermedreal SON [facility] 08-02-2023 10:40-0500 Systolic blood pressure 130 mm[Hg] Jaclyn SON [facility] 02-25-2023 11:40-0400 Body height 154.94 cm Shannan Alfaro Other [employer] Other 02-25-2023 11:40-0400 Body mass index (BMI) [Ratio] 18.51 kg/m2 Shannan Sawantmond Other [employer] Other 02-25-2023 11:40-0400 Body temperature 97.9 [degF] Shannan Angelina Other [employer] Other 02-25-2023 11:40-0400 Body weight 44.45 kg Shannan Angelina Other [employer] Other 02-25-2023 11:40-0400 Diastolic blood pressure 76 mm[Hg] Shannan Angelina Other [employer] Other 02-25-2023 11:40-0400 Respiratory rate 18 /min Shannan Angelina Other [employer] Other 02-25-2023 11:40-0400 SaO2% (BldA) [Mass fraction] 98 % Shannan Angelina Other [employer] Other 02-25-2023 11:40-0400 Systolic blood pressure 171 mm[Hg] Shannan Angelina Other [employer] Other 01-25-2023 13:06-0400 Blood Pressure Location Jaclyn SON [facility] 01-25-2023 13:06-0400 Diastolic blood pressure 80 mm[Hg] Jaclyn SON [facility] 01-25-2023 13:06-0400 Heart rate 83 /min Jaclyn SON [facility] 01-25-2023 13:06-0400 Respiratory rate 16 /min Jaclyn SON [facility] 01-25-2023 13:06-0400 SaO2% (BldA) [Mass fraction] 97 % Jaclyn SON [facility] 01-25-2023 13:06-0400 Systolic blood pressure 132 mm[Hg] Jaclyn SON [facility] 10-22-2022 15:50-0400 Body height 154.94 cm Shannan Sawantmond Other [employer] Other 10-22-2022 15:50-0400 Body mass index (BMI) [Ratio] 17.23 kg/m2 Shannan Sawantmond Other [employer] Other 10-22-2022 15:50-0400 Body temperature 97.5 [degF] Shannan Sawantmond Other [employer] Other 10-22-2022 15:50-0400 Body weight 41.37 kg Shannan Sawantmond Other [employer] Other 10-22-2022 15:50-0400 Diastolic blood pressure 81 mm[Hg] Shannan Sawantmond Other [employer] Other 10-22-2022 15:50-0400 Respiratory rate 16 /min Shannan Angelina Other [employer] Other 10-22-2022 15:50-0400 SaO2% (BldA) [Mass fraction] 94 % Shannan Alfaro Other [employer] Other 10-22-2022 15:50-0400 Systolic blood pressure 165 mm[Hg] Shannan Alfaro Other [employer] [facility] [employer] Other 08-30-2022 14:06-0400 Blood Pressure Location Christopher CiDRA [facility] 08-30-2022 14:06-0400 Diastolic blood pressure 80 mm[Hg] Christopher BROWN [facility] 08-30-2022 14:06-0400 Heart rate 71 /min Christopher BROWN [facility] 08-30-2022 14:06-0400 Respiratory rate 16 /min Christopher BROWN [facility] 08-30-2022 14:06-0400 SaO2% (BldA) [Mass fraction] 97 % Christopher BROWN [facility] 08-30-2022 14:06-0400 Systolic blood pressure 152 mm[Hg] Christopher BROWN [facility] 08-06-2022 20:24-0500 Diastolic blood pressure 72 mm[Hg] Danie Lorna [facility] 08-06-2022 20:24-0500 Heart rate 79 /min Danie Lorna [facility] 08-06-2022 20:24-0500 Mean blood pressure 90 mm[Hg] Danie Lorna [facility] 08-06-2022 20:24-0500 Respiratory rate 25 /min Danie Lorna [facility] 08-06-2022 20:24-0500 SaO2% (BldA) [Mass fraction] 98 % Danie Lorna [facility] 08-06-2022 20:24-0500 Systolic blood pressure 125 mm[Hg] Danie Lorna [facility] 08-06-2022 19:01-0500 Body temperature 98.06 [degF] Danie Lorna [facility] 08-06-2022 19:01-0500 Diastolic blood pressure 80 mm[Hg] Danie Lorna [facility] 08-06-2022 19:01-0500 Heart rate 98 /min Danie Lorna [facility] 08-06-2022 19:01-0500 Respiratory rate 16 /min Danie Lorna [facility] 08-06-2022 19:01-0500 SaO2% (BldA) [Mass fraction] 99 % Danie Lorna [facility] 08-06-2022 19:01-0500 Systolic blood pressure 175 mm[Hg] Danie Lorna [facility] 08-06-2022 19:00-0500 Hourly Rounding Danie Lorna [facility] 08-06-2022 18:00-0500 Hourly Rounding Danie Lorna [facility] 08-06-2022 18:00-0500 Promise to Return Danie Lorna [address] [place] [id number] 08-02-2022 13:29-0500 Blood Pressure Location Jaclyn SON [facility] 08-02-2022 13:29-0500 Diastolic blood pressure 80 mm[Hg] Jaclyn SON [facility] 08-02-2022 13:29-0500 Heart rate 77 /min Jaclyn SON [facility] 08-02-2022 13:29-0500 SaO2% (BldA) [Mass fraction] 96 % Jaclyn SON [facility] 08-02-2022 13:29-0500 Systolic blood pressure 140 mm[Hg] Jaclyn SON [facility] 06-01-2022 19:20-0500 Body height 154.94 cm Radha oPrter Other [employer] Other 06-01-2022 19:20-0500 Body mass index (BMI) [Ratio] 17.57 kg/m2 Radha Porter Other [employer] Other 06-01-2022 19:20-0500 Body temperature 97.5 [degF] Radha Porter Other [employer] Other 06-01-2022 19:20-0500 Body weight 42.18 kg Radha Porter Other [employer] Other 06-01-2022 19:20-0500 Diastolic blood pressure 88 mm[Hg] Radha Porter Other [employer] Other 06-01-2022 19:20-0500 Respiratory rate 16 /min Radha Porter Other [employer] Other 06-01-2022 19:20-0500 SaO2% (BldA) [Mass fraction] 100 % Radha Porter Other [employer] Other 06-01-2022 19:20-0500 Systolic blood pressure 156 mm[Hg] Radha Porter Other [employer] Other 03-15-2022 12:40-0400 Diastolic blood pressure 58 mm[Hg] MD Tony Son Work Phone: [facility] 03-15-2022 12:40-0400 Heart rate 75 /min MD Tony Son Work Phone: [facility] 03-15-2022 12:40-0400 SaO2% (BldA) [Mass fraction] 99 % MD Tony Son Work Phone: [facility] 03-15-2022 12:40-0400 Systolic blood pressure 121 mm[Hg] MD Tony Son Work Phone: [facility] 03-15-2022 10:20-0400 Body height 154.94 cm MD Tony Son Work Phone: [facility] 03-15-2022 10:20-0400 Body temperature 98.2 [degF] MD Tony Son Work Phone: [facility] 03-15-2022 10:20-0400 Body weight 42.18 kg MD Tony Son Work Phone: [facility] 03-15-2022 10:20-0400 Respiratory rate 16 /min MD Tony Son Work Phone: [facility] 01-21-2022 13:22-0400 Blood Pressure Location Jaclyn SON [facility] [place] 01-21-2022 13:22-0400 Diastolic blood pressure 80 mm[Hg] Jaclyn SON [facility] 01-21-2022 13:22-0400 Heart rate 72 /min Jaclyn SON [facility] [place] 01-21-2022 13:22-0400 Respiratory rate 16 /min Jaclyn SON [facility] [place] 01-21-2022 13:22-0400 SaO2% (BldA) [Mass fraction] 99 % Jaclyn SON [facility] [place] 01-21-2022 13:22-0400 Systolic blood pressure 130 mm[Hg] Jaclyn SON [facility] 12-21-2021 14:45-0400 Body height 154.94 cm Darryl Soto Other [employer] Other 12-21-2021 14:45-0400 Body mass index (BMI) [Ratio] 17.57 kg/m2 Darryl Soto Other [employer] Other 12-21-2021 14:45-0400 Body weight 42.18 kg Darryl Soto Other [employer] Other 12-21-2021 14:45-0400 Diastolic blood pressure 73 mm[Hg] Darryl Soto Other [employer] Other 12-21-2021 14:45-0400 Systolic blood pressure 125 mm[Hg] Darryl Soto Other [facility] [employer] Other 12-21-2021 14:22-0400 Body weight 0 kg MD Tony Son Work Phone: [facility] 10-27-2021 12:10-0400 Blood Pressure Location Jacobychrista HUY [facility] [place] 10-27-2021 12:10-0400 Diastolic blood pressure 70 mm[Hg] Jacobychrista HUY [facility] [place] 10-27-2021 12:10-0400 Heart rate 90 /min Jaclyn SON [facility] [place] 10-27-2021 12:10-0400 Respiratory rate 16 /min Jaclyn HUY [facility] [place] 10-27-2021 12:10-0400 SaO2% (BldA) [Mass fraction] 96 % Jacobychrista SON [facility] [place] 10-27-2021 12:10-0400 Systolic blood pressure 120 mm[Hg] Jaclyn SON [facility] [place] 01-14-2021 07:47-0400 Body temperature 98.1 [degF] Jaclyn Calabrese MD Work Phone: [employer] Work Phone: 01-14-2021 07:47-0400 Diastolic blood pressure 62 mm[Hg] Jaclyn Calabrese MD Work Phone: [employer] Work Phone: 01-14-2021 07:47-0400 Heart rate 102 /min Jaclyn Calabrese MD Work Phone: [employer] Work Phone: 01-14-2021 07:47-0400 Respiratory rate 20 /min Jaclyn Calabrese MD Work Phone: [employer] Work Phone: 01-14-2021 07:47-0400 SaO2% (BldA) [Mass fraction] 92 % Jaclyn Calabrese MD Work Phone: [employer] Work Phone: 01-14-2021 07:47-0400 Systolic blood pressure 159 mm[Hg] Jaclyn Calabrese MD Work Phone: [employer] Work Phone: 01-13-2021 01:00-0400 Body mass index (BMI) [Ratio] 21.39 kg/m2 Jaclyn Calabrese MD Work Phone: [employer] Work Phone: 01-13-2021 01:00-0400 Body weight 51.35 kg Jaclyn Calabrese MD Work Phone: [employer] Work Phone: 01-09-2021 10:04-0400 Body height 154.9 cm Jaclyn Calabrese MD Work Phone: [employer] Work Phone: Encounters Encounter Date Encounter Type Care Provider Facility Start: 08-03-2024 ambulatory Jaclyn SON [facility] ity:[place] Start: 08-02-2023 End: 08-03-2023 ambulatory Jaclyn SON [place] [place]: 08-02-2023 End: 08-02-2023 Lab Drop off Jaclyn SON [facility] Start: 08-02-2023 End: 08-02-2023 Well adult monitoring check done Jaclyn SON [facility] [place] Start: 08-02-2023 End: 08-02-2023 Patient encounter procedure Jaclyn SON [facility] [place] Start: 07-29-2023 ambulatory Jacobychrista SON Facil ity:[facility] [place] Start: 02-25-2023 End: 02-25-2023 ambulatory Shannan Angelina Other [employer] Other Start: 02-25-2023 Office outpatient vi sit 15 minutes Shannan Angelina [facility] Start: 01-25-2023 End: 01-26-2023 [facility]ulatory [facility] Start: 01-25-2023 End: 01-25-2023 Patient encounter procedure Jaclyn SON [facility] Start: 10-22-2022 End: 10-22-2022 ambulatory Shannan Angelina Other [employer] Other Start: 10-22-2022 Office outpatient vi sit 15 minutes Shannan Angelina [facility] Start: 09-08-2022 End: 09-09-[address] DOCTOR STOCK Facility: Start: 08-30-2022 End: 08-30-2022 Lab Drop off Jaclyn SON [facility] Start: 08-30-2022 End: 08-30-2022 Patient encounter procedure Jaclyn SON [facility] Start: 08-06-2022 End: 08-06-2022 Emergency department patient visit Danie Rothman [facility] Start: 08-06-2022 End: 08-06-2022 Patient encounter procedure Jaclyn SON [facility] Start: 08-02-2022 End: 08-02-2022 Patient encounter procedure Jaclyn SON [facility] [place] Start: 08-02-2022 End: 08-02-2022 Well adult monitoring check done Jaclyn SON [facility] Start: 07-29-2022 End: 07-29-2022 Lab Drop off Jaclyn SON [facility] Start: 06-01-2022 End: 06-01-2022 ambulatory Radha Porter Other [employer] Other Start: 06-01-2022 Office outpatient vi sit 15 minutes Rahda Porter [facility] Start: 03-19-2022 End: 03-19-2022 ambulatory Darryl Soto Other [employer] Other Start: 03-19-2022 Telephone encounter Darryl Soto [facility] Start: 03-15-2022 End: 03-15-2022 ambulatory Chance Beavers Facility:[facility] Start: 03-15-2022 End: 03-15-2022 Admission to same day surgery center MD Tony Son Work Phone: [facility] Start: 03-15-2022 End: 03-15-2022 ambulatory MD Tony Son Work Phone: [facility] Work Phone: Start: 03-11-2022 End: 03-11-2022 ambulatory Chance Beavers Facility:[facility] Start: 03-11-2022 End: 03-11-2022 ambulatory MD Tony Son Work Phone: [facility] Work Phone: Start: 03-11-2022 End: 03-11-2022 Patient encounter procedure MD Tony Son Work Phone: [facility] Start: 02-19-2022 End: 02-19-2022 ambulatory Chance Beavers Facility:[facility] Start: 02-19-2022 End: 02-19-2022 ambulatory MD Tony Son Work Phone: [facility] Work Phone: Start: 02-19-2022 End: 02-19-2022 Departed Referred MD Tony Son Work Phone: [facility] Start: 01-29-2022 End: 01-29-2022 Lab Drop off Jaclyn SON [facility] Start: 01-29-2022 End: 01-29-2022 Patient encounter procedure Jaclyn SON [facility] [place] Start: 01-21-2022 End: 01-21-2022 Lab Drop off Jaclyn SON [facility] Start: 01-21-2022 End: 01-21-2022 Patient encounter procedure Jaclyn SON [facility] [place] Start: 01-07-2022 End: 01-07-2022 ambulatory Tony Sno Facility:[facility] Start: 01-07-2022 End: 01-07-2022 Patient encounter procedure DO Darryl Soto Work Phone: [facility] Start: 12-21-2021 End: 12-21-2021 ambulatory Darryl Soto Other [employer] Other Start: 12-21-2021 Office outpatient ne w 30 minutes Darryl Soto [facility] Start: 11-10-2021 End: 11-11-2021 ambulatory CATHY AKKINA Facility:[facility] Start: 10-27-2021 End: 10-27-2021 Patient encounter procedure Jaclyn SON [facility] Start: 09-18-2021 End: 09-18-2021 Patient encounter procedure Florentin WILLIS General [facility] Start: 04-03-2021 End: 04-06-2021 [facility] Start: 04-03-2021 End: 04-05-2021 Subsequent hospital visit by physician Cheri Hollins Rad 1 [facility] Comment on above: Closed displaced int ertrochanteric fracture of right femur with routine healing Start: 04-03-2021 End: 04-06-2021 ambulatory JACLYN SON [facility] Start: 04-03-2021 End: 04-05-2021 Subsequent hospital visit by physician Jaclyn Son MD Work Phone: [facility] Start: 03-06-2021 End: 03-09-2021 ambulatory JACLYN SON [facility] [place] [facility] Start: 03-06-2021 End: 03-09-2021 [facility] Start: 03-06-2021 End: 03-08-2021 Subsequent hospital visit by physician Jaclyn Son MD Work Phone: [facility] Start: 02-20-2021 ambulatory JACLYN SON [facility] Start: 01-23-2021 End: 01-26-2021 ambulatory JACLYN SON [facility] Start: 01-23-2021 End: 01-25-2021 Subsequent hospital visit by physician Juliane Additional Xray At [facility] Comment on above: Closed nondisplaced intertrochanteric fracture of right femur, initial encounter (HCC) Start: 01-23-2021 End: 01-26-2021 ambulatory EUGENE Brown [facility] Start: 01-23-2021 End: 01-25-2021 Subsequent hospital visit by physician Jaclyn Son MD Work Phone: [facility] Start: 01-08-2021 End: 01-14-2021 Evaluation and management of inpatient [facility] Start: 01-08-2021 End: 01-14-2021 Evaluation and management of inpatient Jaclyn Calabrese MD Work Phone: [address] MED SURG TELEMETRY Comment on above: Closed fracture of r ight hip, initial encounter (HCC) (Primary Dx); Accidental fall, initial encounter; Closed hip fracture, right, initial encounter (HCC); Postoperative anemia; Renal insufficiency Procedures Date Procedure Procedure Detail Performing Clinician Start: 03-15-2022 Colonoscopy MD Tony sanchez Work Phone: Start: 03-15-2022 Colonoscopy Rod SON Comment on above: [place] [facility] [place] Start: 09-09-2021 Colonoscopy Florentin BOATENG Start: 04-03-2021 Radex hip unilateral with pelvis 2-3 views Eugene Michelle MD Work Phone: Start: 01-23-2021 Radex hip unilateral with pelvis 2-3 views Eugene Michelle MD Work Phone: Start: 01-14-2021 COVID-19, RAPID Aurelio duong MD Work Phone: Start: 01-14-2021 Blood count hemoglobin Aurelio Saldana MD Work Phone: Start: 01-13-2021 Basic metabolic pane l calcium total Aurelio Saldana MD Work Phone: Start: 01-12-2021 Basic metabolic pane l calcium total Aurelio Saldana MD Work Phone: Start: 01-11-2021 Blood count complete automated Isaias Lowry MD Work Phone: Start: 01-11-2021 LACTATE, SEPSIS Isaias cody MD Work Phone: Start: 01-11-2021 CULTURE, BLOOD 1 Isaias Lowry MD Work Phone: Start: 01-11-2021 Radiologic exam ches t single view Isaias Lowry MD Work Phone: Start: 01-11-2021 Blood count complete auto&auto difrntl wbc Isaias Lowry MD Work Phone: Start: 01-11-2021 Antibody screen Abel Calabrese MD Work Phone: Start: 01-11-2021 Basic metabolic pane l calcium total Eugene Michelle MD Work Phone: Start: 01-10-2021 Radiologic exam abdo men 1 view Isaias Lowry MD Work Phone: Start: 01-10-2021 Transfusion of packe d red blood cells Isaias Lowry MD Work Phone: Start: 01-10-2021 Blood count complete auto&auto difrntl wbc Isaias Lowry MD Work Phone: Start: 01-10-2021 Transfusion of packe d red blood cells Isaias Lowry MD Work Phone: Start: 01-10-2021 Basic metabolic pane l calcium total Eugene Michelle MD Work Phone: Start: 01-09-2021 Fluoroscopy up to 1 hour physician/qhp time Eugene Michelle MD Work Phone: Start: 01-09-2021 End: 01-09-2021 Optx fem shft fx w/insj imed implt w/wo screw Eugene Michelle MD Work Phone: Start: 01-09-2021 Blood typing serologic abo Isaias Lowry MD Work Phone: Start: 01-09-2021 Urinalysis microscopic only Isaias Lowry MD Work Phone: Start: 01-09-2021 Urnls dip stick/tabl et rgnt auto w/o microscopy Isaias Lowry MD Work Phone: Start: 01-09-2021 COVID-19, RAPID Isaias cody MD Work Phone: Start: 01-09-2021 Basic metabolic pane l calcium total Isaias Lowry MD Work Phone: Start: 01-09-2021 BASIC METABOLIC PANE L W/ REFLEX TO MG FOR LOW K Isaias Lowry MD Work Phone: Start: 01-09-2021 Blood count complete auto&auto difrntl wbc Isaias Lowry MD Work Phone: Start: 01-08-2021 Radiologic exam ches t single view Jaclyn Calabrese MD Work Phone: Start: 01-08-2021 Ecg routine ecg w/le ast 12 lds i&r only Jaclyn Calabrese MD Work Phone: Start: 01-08-2021 BASIC METABOLIC PANE L W/ REFLEX TO MG FOR LOW K Jaclyn Calabrese MD Work Phone: Start: 01-08-2021 Prothrombin time Jacoby Calabrese MD Work Phone: Start: 01-08-2021 Radex hip unilateral with pelvis 2-3 views Jaclyn Calabrese MD Work Phone: Cholecystectomy Florentin WILLIS Closed reduction of fracture of right femur and internal fixation using dynamic hip screw plate Florentin WILLIS SARS Antigen (LFIA) DO Darryl Soto Work Phone: SARS Antigen (LFIA) MD Tony Son Work Phone: Total abdominal hysterectomy Florentin WILLIS Plan of Treatment Date Care Activity Detail Author Start: 03-15-2022 [facility] Start: 01-11-2022 Colonoscopy DH Colonoscopy Diagnostic (Not Applicable) [facility] Start: 04-01-2021 Pneumococcal 65+ yea rs Vaccine (2 of 2 - PPSV23) Pneumococcal 65+ years Vaccine (2 of 2 - PPSV23) [employer] Phone: Start: 03-12-2021 COVID-19 Vaccine (3 - Pfizer booster) COVID-19 Vaccine (3 - Pfizer booster) [employer] Phone: Start: 02-11-2021 Influenza vaccination Flu vaccine (# 1) [employer] Phone: Start: 01-21-2021 End: 01-14-2022 Basic metabolic 2000 panel - Serum or Plasma Basic Metabolic Panel Lab Routine Renal insufficiency Expected: 01/21/2021, Expires: 01/14/2022 [employer] Phone: Comment on above: Expected: 01/21/2021 , Expires: 01/14/2022 Start: 01-21-2021 End: 01-14-2022 CBC W Auto Differential panel - Blood CBC Auto Differential Lab Routine Postoperative anemia Expected: 01/21/2021, Expires: 01/14/2022 [employer] Phone: Comment on above: Expected: 01/21/2021 , Expires: 01/14/2022 Start: 01-14-2021 End: 01-14-2021 Evaluation and management of inpatient 01/14/2021 Office Visit [facility] Start: 01-08-2021 Annual Wellness Visi t (AWV) Annual Wellness Visit (AWV) [employer] Phone: Start: 2004 Screening for osteoporosis DEXA (modify frequency per FRAX score) [employer] Phone: Start: 08-30-2004 Screening for osteoporosis DEXA (modify frequency per FRAX score) [employer] Phone: Start: 09-01-1999 Screening for malign ant neoplasm of breast Breast cancer screen [employer] Phone: Start: 09-01-1999 Screening for malign ant neoplasm of lung Low dose CT lung screening [employer] Phone: Start: 09-01-1999 Shingles Vaccine (1 of 2) Shingles Vaccine (1 of 2) [employer] Phone: Start: 1999 Screening for malign ant neoplasm of breast Breast cancer screen [employer] Phone: Start: 1999 Screening for malign ant neoplasm of lung Low dose CT lung screening [employer] Phone: Start: 1999 Shingles Vaccine (1 of 2) Shingles Vaccine (1 of 2) [employer] Phone: Start: 1994 Screening for malign ant neoplasm of colon Colon cancer screen colonoscopy [employer] Phone: Start: 08-30-1994 Screening for malign ant neoplasm of colon Colon cancer screen colonoscopy [employer] Phone: Start: 1968 DTaP/Tdap/Td vaccine (1 - Tdap) DTaP/Tdap/Td vaccine (1 - Tdap) [employer] Phone: Start: 08-30-1968 DTaP/Tdap/Td vaccine (1 - Tdap) DTaP/Tdap/Td vaccine (1 - Tdap) [employer] Phone: Start: 09-01-1959 Lipid panel Lipid screen [employer] Phone: Start: 1959 Lipid panel Lipid screen [employer] Phone: Start: 1949 Hepatitis C screening Hepatitis C sc reen [employer] Phone: Start: 1949 Hepatitis C screening Hepatitis C [facility] Phone: Acapella Acapella Respira tory Care Routine 0800, 1200, 1600, 2000 (respiratory use only) until discontinued starting 01/10/2021 [employer] Phone: Comment on above: 0800, 1200, 1600, 20 00 (respiratory use only) until discontinued starting 01/10/2021 Capnography Capnography Resp iratory Care Routine Every 4hr until discontinued starting 01/09/2021 [employer] Phone: Comment on above: Every 4hr until disc ontinued starting 01/09/2021 End: 01-14-2021 COVID-19, Rapid COVID-19, Rapid Microbiology Routine One Time for 1 Occurrences starting 01/14/2021 until 01/14/2021 [employer] Phone: Comment on above: One Time for 1 Occur rences starting 01/14/2021 until 01/14/2021 Culture, Blood 1 Culture, Blood 1 Microbiology STAT 01/11/2021 8:49 PM EDT [employer] Phone: Nasal Cannula Oxygen Nasal Cannu la Oxygen Respiratory Care Routine Daily until discontinued starting 01/09/2021 [employer] Phone: Comment on above: Daily until disconti nued starting 01/09/2021 Oxygen therapy [[facility]] [employer] Phone: Comment on above: Daily until disconti nued starting 01/08/2021 Daily until disconti nued starting 01/09/2021 Spirometry panel Incentive salazar metry Respiratory Care Routine Every 2hr while awake until discontinued starting 01/09/2021 [employer] Phone: Comment on above: Every 2hr while awak e until discontinued starting 01/09/2021 Immunizations Immunization Date Immunization Notes Care Provider Fa horacio 02-08-2023 influenza virus vacc ine, unspecified formulation Jaclyn SON [facility] 02-08-2023 tetanus toxoid, redu omar diphtheria toxoid, and acellular pertussis vaccine, adsorbed Jaclyn SON [facility] 01-26-2023 zoster vaccine recombinant Jaclyn SON [facility] 03-18-2022 SARS-CoV-2 (COVID-19 ) [id number] Jaclyn SON [facility] 03-12-2022 influenza virus vacc ine, unspecified formulation Jaclyn SON [facility] 04-21-2021 pneumococcal polysaccharide vaccine, 23 valent Florentin WILLIS [facility] 04-09-2021 COVID-19, mRNA, LNP- S, PF, 30 mcg/0.3 mL dose Florentin CLINEKaren [facility] 03-12-2021 influenza, high dose seasonal, preservative-free Florentin NILL [facility] 09-10-2020 COVID-19, Pfizer, PF , 30mcg/0.3mL Jaclyn Calabrese MD Work Phone: [employer] Work Phone: 08-22-2020 COVID-19, Pfizer, PF , 30mcg/0.3mL Jaclyn Calabrese MD Work Phone: [employer] Work Phone: 04-01-2020 influenza, high dose seasonal, preservative-free Jaclyn Calabrese MD Work Phone: [employer] Work Phone: 04-01-2020 pneumococcal conjuga te vaccine, 13 dyanaent Jaclyn Calabrese MD Work Phone: [facility] Work Phone: Payers Date Payer Category Payer Self-pay [id number] 1960 Medicaid [id number]. [id number] 1960 Medicare [id number] 1. [id number] 1950 Unknown [id number] 2.16.8 40.1.738761.3.579.2.174 1949 Unknown [id number] 2.16.8 40.1.388175.3.579.2.174 1949 Unknown [id number] 2.16.8 40.1.856001.3.579.2.174 1949 Unknown [id number] 2.16.8 40.1.414259.3.579.2.174 1949 Unknown [id number] 2.16.8 40.1.764083.3.579.2.174 1949 Unknown [id number] 2.16.84 0.1.945605.3.579.2.174 1949 Unknown [id number] 2.16.84 0.1.064087.3.579.2.174 1949 Unknown [id number] 2.16.84 0.1.712668.3.579.2.174 1949 Unknown [id number] 2.16.84 0.1.884037.3.579.2.593 1949 Unknown [id number] 2.16.84 0.1.708599.3.579.2.593 1949 Unknown [id number] 2.16.8 40.1.399850.3.579.2.727 1949 Unknown [id number] 2.16.8 40.1.535580.3.579.2.727 1949 Unknown [id number] 2.16.8 40.1.703409.3.579.2.727 1949 Unknown [id number] 2.16.8 40.1.607861.3.579.2.727 1949 Unknown [id number] 2.16.8 40.1.799059.3.579.2.727 1949 Unknown [id number] 2.16.8 40.1.734303.3.579.2.727 1949 Unknown [id number] 2.16.8 40.1.358195.3.579.2.727 Unknown [id number] 2.16.8 40.1.349471.3.579.2.531 Unknown [id number] 2.16.8 40.1.360471.3.579.2.531 Unknown [id number] 2.16.8 40.1.307082.3.579.2.531 Unknown [id number] 2.16.8 40.1.215388.3.579.2.531 Social History Date Type Detail Facility Start: 01-12-2021 Tobacco smoking stat [facility] Current every day smoker [employer] Phone: Start: 01-12-2021 Cigarettes smoked current (pack per day) - Reported [employer] Phone: Start: 01-12-2021 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 Sex Assigned At Female [facility] Start: 1950 Sex Assigned At Female F [facility] Start: 03-15-2022 End: 03-15-2022 Tobacco smoking status NHIS Smoker (finding) [facility] Start: 08-02-2023 Tobacco smoking status Heavy t obacco smoker (finding) [facility] Comment on above: Smokes 1 pack per da y. Medical Equipment Procedure Code Equipment Code Equipment Origin al Text Equipment Identifier Dates Nail Im [id number] [id number] 130deg Lng R Prox Fem Grn Ti Carol [id number] Start: 01-09-2021 Screw Bne L42mm Dia5mm Tib Lt Grn Ti St Carol Navneet Full Thrd [id number] Start: 01-09-2021 Blade Im L85mm Dia10.35mm Prox Fem G Ti Carol Fen Arleen For [id number] Start: 01-09-2021 Goals Date Patient Goal Desired Activity /State Functional Status Date Assessment Result Facility 08-02-2023 Functional Status N/A [facility] 01-25-2023 Functional Status N/A [facility] 08-30-2022 Functional Status N/A [facility] 08-06-2022 Functional Status N/A [facility] 08-02-2022 Functional Status N/A [facility] 01-21-2022 Functional Status N/A [facility] Clinical Notes 01-09-2021 to 08-02-2023 Note Date & Type Note Facility 08-02-2023 Hospital Discharg e instructions Patient Education 08/02/2023 12:03:23 Health Risks of Smoking Health Risks of Smoking Smoking tobacco is very bad for your health. Tobacco smoke contains many toxic chemicals that can damage every part of your body. Secondhand smoke can be harmful to those around you. Tobacco or nicotine use can cause many long-term (chronic) diseases. Smoking is difficult to quit because a chemical in tobacco, called nicotine, causes addiction or dependence. When you smoke and inhale, nicotine is absorbed quickly into your bloodstream through your lungs. Both inhaled and non-inhaled nicotine may be addictive. How can quitting affect me? There are health benefits of quitting smoking. Some benefits happen right away and others take time. Benefits may include: Blood flow, blood pressure, heart rate, and lung capacity may begin to improve. However, any lung damage that has already occurred cannot be repaired. Respiratory symptoms from smoking, such as nasal congestion and cough, may improve over time. Your risk of heart disease, stroke, and cancer is reduced. The overall quality of your health may improve. You may save money, as you will not spend money on tobacco products and may spend less money on smoking-related health issues. What can increase my risk? Smoking harms nearly every organ in the body. People who smoke tobacco have a shorter life expectancy and an increased risk of many serious medical problems. These include: More respiratory infections, such as colds and pneumonia. Cancer. Heart disease. Stroke. Chronic respiratory diseases. Delayed wound healing and increased risk of complications during surgery. Problems with reproduction, , and childbirth, such as infertility, early (premature) births, stillbirths, and defects. Secondhand smoke exposure to children increases the risk of: Sudden syndrome (SIDS). Infections in the nose, throat, or airways (respiratory infections). Chronic respiratory symptoms. What actions can I take to quit? Smoking is an addiction that affects both your body and your mind, and long-time habits can be hard to change. Your health care provider can recommend: Nicotine replacement products, such as patches, gum, and nasal sprays. Use these products only as directed. Do not replace cigarette smoking with electronic cigarettes, which are commonly called e-cigarettes. The safety of e-cigarettes is not known, and some may contain harmful chemicals. Programs and community resources, which may include group support, education, or talk therapy. Prescription medicines to help reduce cravings. A combination of two or more quit methods, which may increase the success of quitting. Where to find support Follow the recommendations from your health care provider about support groups and other assistance. You can also visit: [place]. Department of Health and Human Services: www.smokefree.gov [employer]: www.freedomfromsmoking.org [employer]: www.heart.org Where to find more information Centers for Disease Control and Prevention: www.cdc.gov World Health Organization: www.who.int Summary Smoking tobacco is very bad for your health. Tobacco smoke contains many toxic chemicals that can damage every part of the body. Smoking is difficult to quit because a chemical in tobacco, called nicotine, causes addiction or dependence. There are immediate and long-term health benefits of quitting smoking. A combination of two or more quit methods may increase the success of quitting. This information is not intended to replace advice given to you by your health care provider. Make sure you discuss any questions you have with your health care provider. Document Revised: 06/01/2022 Document Reviewed: 06/01/2022 [employer] Patient Education 2022 [employer]. 08/02/2023 12:03:20 Chronic Kidney Disease, Adult Chronic Kidney Disease, Adult Chronic kidney disease (CKD) occurs when the kidneys are slowly and permanently damaged over a long period of time. The kidneys are a pair of organs that do many important jobs in the body, including: Removing waste and extra fluid from the blood to make urine. Making hormones that maintain the amount of fluid in tissues and blood vessels. Maintaining the right amount of fluids and chemicals in the body. A small amount of kidney damage may not cause problems, but a large amount of damage may make it hard or impossible for the kidneys to work right. Steps must be taken to slow kidney damage or to stop it from getting worse. If steps are not taken, the kidneys may stop working permanently (end-stage renal disease, or ESRD). Most of the time, CKD does not go away, but it can often be controlled. People who have CKD are usually able to live full lives. What are the causes? The most common causes of this condition are diabetes and high blood pressure (hypertension). Other causes include: Cardiovascular diseases. These affect the heart and blood vessels. Kidney diseases. These include: ?Glomerulonephritis, or inflammation of the tiny filters in the kidneys. ?Interstitial nephritis. This is swelling of the small tubes of the kidneys and of the surrounding structures. ?Polycystic kidney disease, in which clusters of fluid-filled sacs form within the kidneys. ?Renal vascular disease. This includes disorders that affect the arteries and veins of the kidneys. Diseases that affect the body's defense system (immune system). A problem with urine flow. This may be caused by: ?Kidney stones. ?Cancer. ?An enlarged prostate, in males. A kidney infection or urinary tract infection (UTI) that keeps coming back. Vasculitis. This is swelling or inflammation of the blood vessels. What increases the risk? Your chances of having kidney disease increase with age. The following factors may make you more likely to develop this condition: A family history of kidney disease or kidney failure. Kidney failure means the kidneys can no longer work right. Certain genetic diseases. Taking medicines often that are damaging to the kidneys. Being around or being in contact with toxic substances. Obesity. A history of tobacco use. What are the signs or symptoms? Symptoms of this condition include: Feeling very tired (lethargic) and having less energy. Swelling, or edema, of the face, legs, ankles, or feet. Nausea or vomiting, or loss of appetite. Confusion or trouble concentrating. Muscle twitches and cramps, especially in the legs. Dry, itchy skin. A metallic taste in the mouth. Producing less urine, or producing more urine (especially at night). Shortness of breath. Trouble sleeping. CKD may also result in not having enough red blood cells or hemoglobin in the blood (anemia) or having weak bones (bone disease). Symptoms develop slowly and may not be obvious until the kidney damage becomes severe. It is possible to have kidney disease for years without having symptoms. How is this diagnosed? This condition may be diagnosed based on: Blood tests. Urine tests. Imaging tests, such as an ultrasound or a CT scan. A kidney biopsy. This involves removing a sample of kidney tissue to be looked at under a microscope. Results from these tests will help to determine how serious the CKD is. How is this treated? There is no cure for most cases of this condition, but treatment usually relieves symptoms and prevents or slows the worsening of the disease. Treatment may include: Diet changes, which may require you to avoid alcohol and foods that are high in salt, potassium, phosphorous, and protein. Medicines. These may: ?Lower blood pressure. ?Control blood sugar (glucose). ?Relieve anemia. ?Relieve swelling. ?Protect your bones. ?Improve the balance of salts and minerals in your blood (electrolytes). Dialysis, which is a type of treatment that removes toxic waste from the body. It may be needed if you have kidney failure. Managing any other conditions that are causing your CKD or making it worse. Follow these instructions at home: Medicines Take laoy-ses-gidiojp and prescription medicines only as told by your health care provider. The amount of some medicines that you take may need to be changed. Do not take any new medicines unless approved by your health care provider. Many medicines can make kidney damage worse. Do not take any vitamin and mineral supplements unless approved by your health care provider. Many nutritional supplements can make kidney damage worse. Lifestyle Do not use any products that contain nicotine or tobacco, such as cigarettes, e-cigarettes, and chewing tobacco. If you need help quitting, ask your health care provider. If you drink alcohol: ?Limit how much you use to: ?0 1 drink a day for women who are not . ?0 2 drinks a day for men. ?Know how much alcohol is in your drink. In the [place] one drink equals one 12 oz bottle of beer (355 mL), one 5 oz glass of wine (148 mL), or one 1 oz glass of hard liquor (44 mL). Maintain a healthy weight. If you need help, ask your health care provider. General instructions Follow instructions from your health care provider about eating or drinking restrictions, including any prescribed diet. Track your blood pressure at home. Report changes in your blood pressure as told. If you are being treated for diabetes, track your blood glucose levels as told. Start or continue an exercise plan. Exercise at least 30 minutes a day, 5 days a week. Keep your immunizations up to date as told. Keep all follow-up visits. This is important. Where to find more information [employer]ney Patients: www.aakp.org National Kidney Foundation: www.kidney.org [employer]: www.akfinc.org Life Options: www.lifeoptions.org Kidney School: www.kidneyschool.org Contact a health care provider if: Your symptoms get worse. You develop new symptoms. Get help right away if: You develop symptoms of ESRD. These include: ?Headaches. ?Numbness in your hands or feet. ?Easy bruising. ?Frequent hiccups. ?Chest pain. ?Shortness of breath. ?Lack of menstrual periods, in women. You have a fever. You are producing less urine than usual. You have pain or bleeding when you urinate or when you have a bowel movement. These symptoms may represent a serious problem that is an emergency. Do not wait to see if the symptoms will go away. Get medical help right away. Call your local emergency services (911 in the [place] Do not drive yourself to the hospital. Summary Chronic kidney disease (CKD) occurs when the kidneys become damaged slowly over a long period of time. The most common causes of this condition are diabetes and high blood pressure (hypertension). There is no cure for most cases of CKD, but treatment usually relieves symptoms and prevents or slows the worsening of the disease. Treatment may include a combination of lifestyle changes, medicines, and dialysis. This information is not intended to replace advice given to you by your health care provider. Make sure you discuss any questions you have with your health care provider. Document Revised: 09/03/2020 Document Reviewed: 09/03/2020 [employer] Patient Education 2022 [employer]. 08/02/2023 12:03:17 Chronic Obstructive Pulmonary Disease Chronic Obstructive Pulmonary Disease Chronic obstructive pulmonary disease (COPD) is a long-term (chronic) condition that affects the lungs. COPD is a general term that can be used to describe many different lung problems that cause lung inflammation and limit airflow, including chronic bronchitis and emphysema. If you have COPD, your lung function will probably never return to normal. In most cases, it gets worse over time. However, there are steps you can take to slow the progression of the disease and improve your quality of life. What are the causes? This condition may be caused by: Smoking. This is the most common cause. Certain genes passed down through families. What increases the risk? The following factors may make you more likely to develop this condition: Being exposed to secondhand smoke from cigarettes, pipes, or cigars. Being exposed to chemicals and other irritants, such as fumes and dust in the work environment. Having chronic lung conditions or infections. What are the signs or symptoms? Symptoms of this condition include: Shortness of breath, especially during physical activity. Chronic cough with a large amount of thick mucus. Sometimes, the cough may not have any mucus (dry cough). Wheezing and rapid breathing. Nicholas or bluish discoloration (cyanosis) of the skin, especially in the fingers, toes, or lips. Feeling tired (fatigue). Weight loss. Chest tightness. Frequent infections. Episodes when breathing symptoms become much worse (exacerbations). At the later stages of this disease, you may have swelling in the ankles, feet, or legs. How is this diagnosed? This condition is diagnosed based on: Your medical history. A physical exam. You may also have tests, including: Lung (pulmonary) function tests. This may include a spirometry test, which measures your ability to exhale properly. Chest X-ray. CT scan. Blood tests. How is this treated? This condition may be treated with: Medicines. These may include inhaled rescue medicines to treat acute exacerbations as well as medicines that you take long-term (maintenance medicines) to prevent flare-ups of COPD. ?Bronchodilators help treat COPD by dilating the airways to allow increased airflow and make your breathing more comfortable. ?Steroids can reduce airway inflammation and help prevent exacerbations. Smoking cessation. If you smoke, your health care provider may ask you to quit, and may also recommend therapy or replacement products to help you quit. Pulmonary rehabilitation. This may involve working with a team of health care providers and specialists, such as respiratory, occupational, and physical therapists. Exercise and physical activity. These are beneficial for nearly all people with COPD. Nutrition therapy to gain weight, if you are underweight. Oxygen. Supplemental oxygen therapy is only helpful if you have a low oxygen level in your blood (hypoxemia). Lung surgery or transplant. Palliative care. This is to help people with COPD feel comfortable when treatment is no longer working. Follow these instructions at home: Medicines Take tqwh-ilk-wrkdnyt and prescription medicines only as told by your health care provider. This includes inhaled medicines and pills. Talk to your health care provider before taking any cough or allergy medicines. You may need to avoid certain medicines that dry out your airways. Lifestyle If you smoke, the most important thing that you can do is to stop smoking. Continuing to smoke will cause the disease to progress faster. Do not use any products that contain nicotine or tobacco. These products include cigarettes, chewing tobacco, and vaping devices, such as e-cigarettes. If you need help quitting, ask your health care provider. Avoid exposure to things that irritate your lungs, such as smoke, chemicals, and fumes. Stay active, but balance activity with periods of rest. Exercise and physical activity will help you maintain your ability to do things you want to do. Learn and use relaxation techniques to manage stress and to control your breathing. Get the right amount of sleep and get quality sleep. Most adults need 7 or more hours per night. Eat healthy foods. Eating smaller, more frequent meals and resting before meals may help you maintain your strength. Controlled breathing Learn and use controlled breathing techniques as directed by your health care provider. Controlled breathing techniques include: Pursed lip breathing. Start by breathing in (inhaling) through your nose for 1 second. Then, purse your lips as if you were going to whistle and breathe out (exhale) through the pursed lips for 2 seconds. Diaphragmatic breathing. Start by putting one hand on your abdomen just above your waist. Inhale slowly through your nose. The hand on your abdomen should move out. Then purse your lips and exhale slowly. You should be able to feel the hand on your abdomen moving in as you exhale. Controlled coughing Learn and use controlled coughing to clear mucus from your lungs. Controlled coughing is a series of short, progressive coughs. The steps of controlled coughing are: 1.Lean your head slightly forward. 2.Breathe in deeply using diaphragmatic breathing. 3.Try to hold your breath for 3 seconds. 4.Keep your mouth slightly open while coughing twice. 5.Spit any mucus out into a tissue. 6.Rest and repeat the steps once or twice as needed. General instructions Make sure you receive all the vaccines that your health care provider recommends, especially the pneumococcal and influenza vaccines. Preventing infection and hospitalization is very important when you have COPD. Drink enough fluid to keep your urine pale yellow, unless you have a medical condition that requires fluid restriction. Use oxygen therapy and pulmonary rehabilitation if told by your health care provider. If you require home oxygen therapy, ask your health care provider whether you should purchase a pulse oximeter to measure your oxygen level at home. Work with your health care provider to develop a COPD action plan. This will help you know what steps to take if your condition gets worse. Keep other chronic health conditions under control as told by your health care provider. Avoid extreme temperature and humidity changes. Avoid contact with people who have an illness that spreads from person to person (is contagious), such as viral infections or pneumonia. Keep all follow-up visits. This is important. Contact a health care provider if: You are coughing up more mucus than usual. There is a change in the color or thickness of your mucus. Your breathing is more labored than usual. Your breathing is faster than usual. You have difficulty sleeping. You need to use your rescue medicines or inhalers more often than expected. You have trouble doing routine activities such as getting dressed or walking around the house. Get help right away if: You have shortness of breath while you are resting. You have shortness of breath that prevents you from: ?Being able to talk. ?Performing your usual physical activities. You have chest pain lasting longer than 5 minutes. Your skin color is more blue (cyanotic) than usual. You measure low oxygen saturations for longer than 5 minutes with a pulse oximeter. You have a fever. You feel too tired to breathe normally. These symptoms may represent a serious problem that is an emergency. Do not wait to see if the symptoms will go away. Get medical help right away. Call your local emergency services (911 in the [place] Do not drive yourself to the hospital. Summary Chronic obstructive pulmonary disease (COPD) is a long-term (chronic) condition that affects the lungs. Your lung function will probably never return to normal. In most cases, it gets worse over time. However, there are steps you can take to slow the progression of the disease and improve your quality of life. Treatment for COPD may include taking medicines, quitting smoking, pulmonary rehabilitation, and changes to diet and exercise. As the disease progresses, you may need oxygen therapy, a lung transplant, or palliative care. To help manage your condition, do not smoke, avoid exposure to things that irritate your lungs, stay up to date on all vaccines, and follow your health care provider's instructions for taking medicines. This information is not intended to replace advice given to you by your health care provider. Make sure you discuss any questions you have with your health care provider. Document Revised: 04/07/2021 Document Reviewed: 04/07/2021 Elsevier Patient Education 2022 [employer]. [facility] [place] 07-30-2023 Hospital Discharg e instructions Patient Education 07/30/2023 17:27:31 Chronic Obstructive Pulmonary Disease Chronic Obstructive Pulmonary Disease Chronic obstructive pulmonary disease (COPD) is a long-term (chronic) condition that affects the lungs. COPD is a general term that can be used to describe many different lung problems that cause lung inflammation and limit airflow, including chronic bronchitis and emphysema. If you have COPD, your lung function will probably never return to normal. In most cases, it gets worse over time. However, there are steps you can take to slow the progression of the disease and improve your quality of life. What are the causes? This condition may be caused by: Smoking. This is the most common cause. Certain genes passed down through families. What increases the risk? The following factors may make you more likely to develop this condition: Being exposed to secondhand smoke from cigarettes, pipes, or cigars. Being exposed to chemicals and other irritants, such as fumes and dust in the work environment. Having chronic lung conditions or infections. What are the signs or symptoms? Symptoms of this condition include: Shortness of breath, especially during physical activity. Chronic cough with a large amount of thick mucus. Sometimes, the cough may not have any mucus (dry cough). Wheezing and rapid breathing. Nicholas or bluish discoloration (cyanosis) of the skin, especially in the fingers, toes, or lips. Feeling tired (fatigue). Weight loss. Chest tightness. Frequent infections. Episodes when breathing symptoms become much worse (exacerbations). At the later stages of this disease, you may have swelling in the ankles, feet, or legs. How is this diagnosed? This condition is diagnosed based on: Your medical history. A physical exam. You may also have tests, including: Lung (pulmonary) function tests. This may include a spirometry test, which measures your ability to exhale properly. Chest X-ray. CT scan. Blood tests. How is this treated? This condition may be treated with: Medicines. These may include inhaled rescue medicines to treat acute exacerbations as well as medicines that you take long-term (maintenance medicines) to prevent flare-ups of COPD. ?Bronchodilators help treat COPD by dilating the airways to allow increased airflow and make your breathing more comfortable. ?Steroids can reduce airway inflammation and help prevent exacerbations. Smoking cessation. If you smoke, your health care provider may ask you to quit, and may also recommend therapy or replacement products to help you quit. Pulmonary rehabilitation. This may involve working with a team of health care providers and specialists, such as respiratory, occupational, and physical therapists. Exercise and physical activity. These are beneficial for nearly all people with COPD. Nutrition therapy to gain weight, if you are underweight. Oxygen. Supplemental oxygen therapy is only helpful if you have a low oxygen level in your blood (hypoxemia). Lung surgery or transplant. Palliative care. This is to help people with COPD feel comfortable when treatment is no longer working. Follow these instructions at home: Medicines Take [id number] and prescription medicines only as told by your health care provider. This includes inhaled medicines and pills. Talk to your health care provider before taking any cough or allergy medicines. You may need to avoid certain medicines that dry out your airways. Lifestyle If you smoke, the most important thing that you can do is to stop smoking. Continuing to smoke will cause the disease to progress faster. Do not use any products that contain nicotine or tobacco. These products include cigarettes, chewing tobacco, and vaping devices, such as e-cigarettes. If you need help quitting, ask your health care provider. Avoid exposure to things that irritate your lungs, such as smoke, chemicals, and fumes. Stay active, but balance activity with periods of rest. Exercise and physical activity will help you maintain your ability to do things you want to do. Learn and use relaxation techniques to manage stress and to control your breathing. Get the right amount of sleep and get quality sleep. Most adults need 7 or more hours per night. Eat healthy foods. Eating smaller, more frequent meals and resting before meals may help you maintain your strength. Controlled breathing Learn and use controlled breathing techniques as directed by your health care provider. Controlled breathing techniques include: Pursed lip breathing. Start by breathing in (inhaling) through your nose for 1 second. Then, purse your lips as if you were going to whistle and breathe out (exhale) through the pursed lips for 2 seconds. Diaphragmatic breathing. Start by putting one hand on your abdomen just above your waist. Inhale slowly through your nose. The hand on your abdomen should move out. Then purse your lips and exhale slowly. You should be able to feel the hand on your abdomen moving in as you exhale. Controlled coughing Learn and use controlled coughing to clear mucus from your lungs. Controlled coughing is a series of short, progressive coughs. The steps of controlled coughing are: 1.Lean your head slightly forward. 2.Breathe in deeply using diaphragmatic breathing. 3.Try to hold your breath for 3 seconds. 4.Keep your mouth slightly open while coughing twice. 5.Spit any mucus out into a tissue. 6.Rest and repeat the steps once or twice as needed. General instructions Make sure you receive all the vaccines that your health care provider recommends, especially the pneumococcal and influenza vaccines. Preventing infection and hospitalization is very important when you have COPD. Drink enough fluid to keep your urine pale yellow, unless you have a medical condition that requires fluid restriction. Use oxygen therapy and pulmonary rehabilitation if told by your health care provider. If you require home oxygen therapy, ask your health care provider whether you should purchase a pulse oximeter to measure your oxygen level at home. Work with your health care provider to develop a COPD action plan. This will help you know what steps to take if your condition gets worse. Keep other chronic health conditions under control as told by your health care provider. Avoid extreme temperature and humidity changes. Avoid contact with people who have an illness that spreads from person to person (is contagious), such as viral infections or pneumonia. Keep all follow-up visits. This is important. Contact a health care provider if: You are coughing up more mucus than usual. There is a change in the color or thickness of your mucus. Your breathing is more labored than usual. Your breathing is faster than usual. You have difficulty sleeping. You need to use your rescue medicines or inhalers more often than expected. You have trouble doing routine activities such as getting dressed or walking around the house. Get help right away if: You have shortness of breath while you are resting. You have shortness of breath that prevents you from: ?Being able to talk. ?Performing your usual physical activities. You have chest pain lasting longer than 5 minutes. Your skin color is more blue (cyanotic) than usual. You measure low oxygen saturations for longer than 5 minutes with a pulse oximeter. You have a fever. You feel too tired to breathe normally. These symptoms may represent a serious problem that is an emergency. Do not wait to see if the symptoms will go away. Get medical help right away. Call your local emergency services (911 in the [place] Do not drive yourself to the hospital. Summary Chronic obstructive pulmonary disease (COPD) is a long-term (chronic) condition that affects the lungs. Your lung function will probably never return to normal. In most cases, it gets worse over time. However, there are steps you can take to slow the progression of the disease and improve your quality of life. Treatment for COPD may include taking medicines, quitting smoking, pulmonary rehabilitation, and changes to diet and exercise. As the disease progresses, you may need oxygen therapy, a lung transplant, or palliative care. To help manage your condition, do not smoke, avoid exposure to things that irritate your lungs, stay up to date on all vaccines, and follow your health care provider's instructions for taking medicines. This information is not intended to replace advice given to you by your health care provider. Make sure you discuss any questions you have with your health care provider. Document Revised: 04/07/2021 Document Reviewed: 04/07/2021 [employer] Patient Education 2022 [employer]. Follow Up Care 01/25/2023 13:31:33 With:HUY LIM, LANCE Tadeo Address: When:Within 1 Year(s) [facility] [place] 02-25-2023 Evaluation note Encounter Date Diagnosis Assessment Notes Feb, Sore throat (ICD-10 - J02.9) Feb, Acute sinusitis, recurrence not specified, unspecified location (ICD-10 - J01.90) Drink plenty fluids, get plenty of rest. Continue home medications as prescribed. Take the amoxicillin with clavulanate as prescribed until gone. Use the fluticasone nasal spray as prescribed until your symptoms improved. You may take Mucinex as needed for congestion. Follow-up with your doctor if no improvement in 2 to 3 days [facility] Other 08-13-2023 Hospital Discharge instructions Patient Education 01/23/2023 16:44:56 Food Basics for Chronic Kidney Disease Food Basics for Chronic Kidney Disease Chronic kidney disease (CKD) occurs when the kidneys are permanently damaged over a long period of time. When your kidneys are not working well, they cannot remove waste, fluids, and other substancesfrom your blood as well as they did before. The substances can build up, which can worsen kidney damage and affect how your body functions. Certain foods lead to a buildup of these substances. By changing your diet, you can help prevent more kidney damage and delay or prevent the need for dialysis. What are tips for following this plan? Reading food labels Check the amount of salt (sodium) in foods. Choose foods that have less than 300 milligrams (mg) per serving. Check the ingredient list for phosphorus or potassium-based additives or preservatives. Check the amount of saturated fat and trans fat. Limit or avoid these fats as told by your dietitian. Shopping Avoid buying foods that are: ?Processed or prepackaged. ?Calcium-enriched or that have calcium added to them (are fortified). Do not buy foods that have salt or sodium listed among the first five ingredients. Buy canned vegetables and beans that say no salt added or low sodium and rinse them before eating. Cooking Soak vegetables, such as potatoes, before cooking to reduce potassium. To do this: 1.Peel and cut the vegetables into small pieces. 2.Soak the vegetables in warm water for at least 2 hours. For every 1 cup of vegetables, use 10 cups of water. 3.Drain and rinse the vegetables with warm water. 4.Boil the vegetables for at least 5 minutes. Meal planning Limit the amount of protein you eat from plant and animal sources each day. Do not add salt to food when cooking or before eating. Eat meals and snacks at around the same time each day. General information Talk with your health care provider about whether you should take a vitamin and mineral supplement. Use standard measuring cups and spoons to measure servings of foods. Use a kitchen scale to measureportions of protein foods. If told by your health care provider, avoid drinking too much fluid. Measure and count all liquids,including water, ice, soups, flavored gelatin, and frozen desserts such as ice pops or ice cream. If you have diabetes: If you have diabetes (diabetes mellitus) and CKD, it is important to keep your blood sugar (glucose) in the target range recommended by your health care provider. Follow your diabetes management plan. This may include: ?Checking your blood glucose regularly. ?Taking medicines by mouth, taking insulin, or taking both. ?Exercising for at least 30 minutes on 5 or more days each week, or as told by your health care provider. ?Tracking how many servings of carbohydrates you eat at each meal. You may be given specific guidelines on how much of certain foods and nutrients you may eat, depending on your stage of kidney disease and whether you have high blood pressure (hypertension). Follow your meal plan as told by your dietitian. What nutrients should I limit? Work with your health care provider and dietitian to develop a meal plan that is right for you. Foods you can eat and foods you should limit or avoid will depend on the stage of your kidney disease and any other health conditions you have. The items listed below are not a complete list. Talk with your dietitian about what dietary choices are best for you. Potassium Potassium affects how steadily your heart beats. If too much potassium builds up in your blood, thepotassium can cause an irregular heartbeat or even a heart attack. You may need to limit or avoid foods that are high in potassium, such as: Milk and soy milk. Fruits, such as bananas, apricots, nectarines, melon, prunes, raisins, kiwi, and oranges. Vegetables, such as potatoes, sweet potatoes, yams, tomatoes, leafy greens, beets, avocado, pumpkin, and winter squash. White and brunner beans. Whole-wheat breads and pastas. Beans and nuts. Phosphorus Phosphorus is a mineral found in your bones. A balance between calcium and phosphorus is needed to build and maintain healthy bones. Too much phosphorus pulls calcium from your bones. This can make your bones weak and more likely to break. Too much phosphorus can also make your skin itch. You may need to limit or avoid foods that are high in phosphorus, such as: Milk and dairy products. Dried beans and peas. Tofu, soy milk, and other soy-based meat replacements. Dark-colored sodas. Nuts and peanut butter. Meat, poultry, and fish. Bran cereals and oatmeal. Protein Protein helps you make and keep muscle. It also helps to repair your body's cells and tissues. One of the natural breakdown products of protein is a waste product called urea. When your kidneys are not working properly, they cannot remove wastes, such as urea. Reducing how much protein you eat can help prevent a buildup of urea in your blood. Depending on your stage of kidney disease, you may need to limit foods that are high in protein. Sources of animal protein include: Meat (all types). Fish and seafood. Poultry. Eggs. Dairy. Other protein foods include: Beans and legumes. Nuts and nut butter. Soy and tofu. Sodium Sodium helps to maintain a healthy balance of fluids in your body. Too much sodium can increase your blood pressure and have a negative effect on your heart and lungs. Too much sodium can also cause your body to retain too much fluid, making your kidneys work harder. Most people should have less than 2,300 mg of sodium each day. If you have hypertension, you may need to limit your sodium to 1,500 mg each day. You may need to limit or avoid foods that are high in sodium, such as: Salt seasonings. Soy sauce. Cured and processed meats. Salted crackers and snack foods. Fast food. Canned soups and most canned foods. Pickled foods. Vegetable juice. Boxed mixes or [id number] boxed meals and side dishes. Bottled dressings, sauces, and marinades. Talk with your dietitian about how much potassium, phosphorus, protein, and sodium you may have each day. Summary Chronic kidney disease (CKD) can lead to a buildup of waste and extra substances in the body. Certain foods lead to a buildup of these substances. By changing your diet as told, you can help prevent more kidney damage and delay or prevent the need for dialysis. Food intake changes are different for each person with CKD. Work with a dietitian to set up nutrient goals and a meal plan that is right for you. If you have diabetes and CKD, it is important to keep your blood sugar in the target range recommended by your health care provider. This information is not intended to replace advice given to you by your health care provider. Make sure you discuss any questions you have with your health care provider. Document Revised: 09/22/2020 Document Reviewed: 09/22/2020 [employer] Patient Education 2022 [employer]. Follow Up Care 07/29/2022 13:52:07 With:Jaclyn SON MD, FAM Address: [address] [place], [place] [id number]- When:6 months [facility] 05-12-2023 Evaluation note* Encounter Date Diagnosis Assessment Notes Treatment Notes Treatment Clinical Notes October, Sore throat (ICD-10 - J02.9) October, Acute pharyngitis due to other specified organisms (ICD-10 - J02.8) Pharyngitis/tonsil lopharyngitis: adult home care material was printed Drink plenty fluids, get plenty of rest. Take the amoxicillin as prescribed until gone. Take Tylenol or Motrin as needed for aches pains or fevers. Follow-up with your family physician if no improvement in 2 to 3 days October, Other specified bacterial agents as the cause of diseases classified elsewhere (ICD-10 - B96.89) [facility] Other 03-18-2023 Hospital Discharge instructions Patient Education 08/28/2022 14:01:25 Hyperkalemia Hyperkalemia Hyperkalemia occurs when the level of potassium in your blood is too high. Potassium is an important nutrient that helps the muscles and nerves function normally. It affects how the heart works, and it helps keep fluids and minerals balanced in the body. If there is too much potassium in your blood, it can affect your heart's ability to function normally. Potassium is normally removed (excreted) from the body by the kidneys. Hyperkalemia can result fromvarious conditions. It can range from mild to severe. What are the causes? This condition may be caused by: Taking in too much potassium. You can do this by: ?Using salt substitutes. They contain large amounts of potassium. ?Taking potassium supplements. ?Eating foods that are high in potassium. Excreting too little potassium. This can happen if: ?Your kidneys are not working properly. Kidney (renal) disease, including short- term or long-term renal failure, is a common cause of hyperkalemia. ?You are taking medicines that lower your excretion of potassium. ?You have [place]'s disease. ?You have a urinary tract blockage, such as kidney stones. ?You are on treatment to mechanically clean your blood (dialysis) and you skip a treatment. Releasing a high amount of potassium from your cells into your blood. This can happen with: ?Injury to muscles (rhabdomyolysis) or other tissues. Most potassium is stored in your muscles. ?Severe loving or infections. ?Acidic blood plasma (acidosis). Acidosis can result from many diseases, such as uncontrolled diabetes. What increases the risk? The following factors may make you more likely to develop this condition: Kidney disease. This puts you at the highest risk. [place]'s disease. This is a condition where the adrenal glands do not produce enough hormones. Alcoholism or heavy drug use. Using certain blood pressure medicines, such as POLLY inhibitors, angiotensin II receptor blockers (ARBs), or potassium-sparing diuretics such as spironolactone. Severe injury or burn. What are the signs or symptoms? In many cases, there are no symptoms. However, when your potassium level becomes high enough, you may have symptoms such as: An irregular or very slow heartbeat. Nausea. Tiredness (fatigue). Confusion. Tingling of your skin or numbness of your hands or feet. Muscle cramps. Muscle weakness. Not being able to move (paralysis). How is this diagnosed? This condition may be diagnosed based on: Your symptoms and medical history. Your health care provider will ask about your use of prescription and non-prescription drugs. A physical exam. Blood tests. An electrocardiogram (ECG). How is this treated? Treatment depends on the cause and severity of your condition. Treatment may need to be done in thehospital setting. Treatment may include: IV glucose (sugar) along with insulin to shift potassium out of your blood and into your cells. A medicine called albuterol to shift potassium out of your blood and into your cells. Medicines to remove the potassium from your body. Dialysis to remove the potassium from your body. Calcium to protect your heart from the effects of high potassium, such as irregular rhythms (arrhythmias). Follow these instructions at home: Take wyve-xrq-rmkyhsg and prescription medicines only as told by your health care provider. Do not take any supplements, natural products, herbs, or vitamins without reviewing them with your health care provider. Certain supplements and natural food products contain high amounts of potassium. Limit your alcohol intake as told by your health care provider. Do not use drugs. If you need help quitting, ask your health care provider. If you have kidney disease, you may need to follow a low-potassium diet. A dietitian can help you learn which foods have high or low amounts of potassium. Keep all follow-up visits as told by your health care provider. This is important. Contact a health care provider if you: Have an irregular or very slow heartbeat. Feel light-headed. Feel weak. Are nauseous. Have tingling or numbness in your hands or feet. Get help right away if you: Have shortness of breath. Have chest pain or discomfort. Pass out. Have muscle paralysis. Summary Hyperkalemia occurs when the level of potassium in your blood is too high. This condition may be caused by taking in too much potassium, excreting too little potassium, or releasing a high amount of potassium from your cells into your blood. Hyperkalemia can result from many underlying conditions, especially chronic kidney disease, or fromtaking certain medicines. Treatment of hyperkalemia may include medicine to shift potassium out of your blood and into your cells or to remove the potassium from your body. If you have kidney disease, you may need to follow a low-potassium diet. A dietitian can help you learn which foods have high or low amounts of potassium. This information is not intended to replace advice given to you by your health care provider. Make sure you discuss any questions you have with your health care provider. Document Released: 05/20/2003 Document Revised: 05/15/2018 Document Reviewed: 05/15/2018 [employer] Patient Education 2019 [employer]. [facility] [place] 02-24-2023 Hospital Discharge instructions Patient Education 08/06/2022 20:25:48 Potassium Test Potassium Test Why am I having this test? The potassium (K) test is done to determine how much potassium you have in your blood. Potassium isan important nutrient that helps your muscles and nerves function normally. It also helps maintain a stable acid base balance in your bloodstream. Most of the body s potassium is inside of cells, andonly a very small amount is in the blood. Because the amount of potassium in the blood is so small,minor changes can have big effects. Potassium blood levels are affected by many factors. This test may be done as part of routine bloodwork. It may also be done: To help diagnose the cause of a serious illness. To monitor treatment for conditions such as heart disease or heart failure. To check for problems with kidney function. To monitor the presence of certain hormones in your blood. To check for problems related to how much salt (sodium) leaves your body through urination. To monitor the effect of certain medicines you may be taking. What is being tested? This test measures the amount of potassium in your blood. What kind of sample is taken? A blood sample is required for this test. It is usually collected by inserting a needle into a blood vessel or by sticking a finger with a small needle. Tell a health care provider about: All medicines you are taking, including vitamins, herbs, eye drops, creams, and fkji-vrg-utnlrkl medicines. Any medical conditions you have. How are the results reported? Your test results will be reported as a value that indicates the amount of potassium in your blood.Your health care provider will compare your results to normal ranges that were established after testing a large group of people (reference ranges). Reference ranges may vary among labs and hospitals. For this test, common reference ranges are: Adult or elderly: 3.5 5.0 mEq/L or 3.5 5.0 mmol/L (SI units). Child: 3.4 4.7 mEq/L. : 4.1 5.3 mEq/L. [place]: 3.9 5.9 mEq/L. What do the results mean? Results that are within the reference range are considered normal. Test results that are higher than normal can result from many things, including: Too much dietary intake of potassium-rich foods. Too much IV intake of potassium-rich solutions. Kidney failure. Haris's disease. Decreased production of the aldosterone hormone by the kidneys (hypoaldosteronism). Crush injury to tissues. The breakdown of red blood cells in the spleen (hemolysis). Transfusion of broken-down (hemolyzed) blood cells. Infection. A condition in which your blood is too acidic (acidosis). Dehydration. Side effect from medicine. Test results that are lower than normal can result from: Not enough dietary intake of potassium-rich foods. Not enough IV intake of potassium-rich solutions. Complications from a burn. Conditions that cause excessive or prolonged diarrhea or vomiting. Use of medicines that encourage extra fluid loss from your body through urination (diuretics). Too much production of aldosterone hormone by the kidneys (hyperaldosteronism). Wilfrid's syndrome. Kidney disease. Consuming too much licorice. When licorice is eaten in large amounts, it functions like the hormonealdosterone. A condition in which your blood is not acidic enough (alkalosis). Use of insulin. Taking in too much sugar (glucose) as a treatment for a low blood glucose level. Excess fluid in the abdomen (ascites). Narrowing or partial blockage of blood vessels to the kidney (renal artery stenosis). Cystic fibrosis. Complications from trauma. Surgery. Talk with your health care provider about what your results mean. Questions to ask your health care provider Ask your health care provider, or the department that is doing the test: When will my results be ready? How will I get my results? What are my treatment options? What other tests do I need? What are my next steps? Summary The potassium (K) test is done to determine how much potassium you have in your blood. Potassium isan important nutrient that helps your muscles and nerves function normally. This test may be done as part of routine blood work or to help diagnose or monitor certain conditions. A number of conditions can lead to a potassium level that is higher or lower than normal. Make sure you talk with your health care provider about what your results mean. This information is not intended to replace advice given to you by your health care provider. Make sure you discuss any questions you have with your health care provider. Document Released: 07/02/2005 Document Revised: 02/15/2018 Document Reviewed: 02/15/2018 [employer] Patient Education 2020 [employer]. Follow Up Care 08/06/2022 18:49:11 With:Jaclyn SON Address: [address] [place], [place] [id number] Business (1) When:08/11/2022 20:06:02 [facility]02-24-2023 Evaluation + Plan noteExtracted from: Title:ED Note Author:Danie Rothman DO Date :08/06/22 Abnormal laboratory test (R8 9.9: Unspecified abnormal finding in specimens from other organs, systems and tissues) Orders: Automated Diff Basic Metabolic Panel CBC w/ Auto Diff ED Cardiac Monitoring eGFR Oxygen Saturation Oxygen Therapy PT & PTT Saline Lock Insert Troponin 0 Hr. Troponin 3 Hr. Troponin 6 Hr. Troponin 9 Hr. XR Chest Single View Future Appointments Appointment Date:01/25/2023 01:00:00 PM Scheduled Provider:Jaclyn SON MD Location:[facility] [place] Appointment Type: Open Appointment Date:08/02/2023 11:00:00 AM Scheduled Provider: Location:[facility] [place] Appointment Type: Medicare Wellness Subsequent [facility]02-20-2023 Hospital Discharge instructions Patient Education 08/02/2022 13:20:26 Steps to Quit Smoking Steps to Quit Smoking Smoking tobacco is the leading cause of preventable . It can affect almost every organ in the body. Smoking puts you and those around you at risk for developing many serious chronic diseases. Quitting smoking can be difficult, but it is one of the best things that you can do for your health. It is never too late to quit. How do I get ready to quit? When you decide to quit smoking, create a plan to help you succeed. Before you quit: Pick a date to quit. Set a date within the next 2 weeks to give you time to prepare. Write down the reasons why you are quitting. Keep this list in places where you will see it often. Tell your family, friends, and co-workers that you are quitting. Support from your loved ones can make quitting easier. Talk with your health care provider about your options for quitting smoking. Find out what treatment options are covered by your health insurance. Identify people, places, things, and activities that make you want to smoke (triggers). Avoid them. What first steps can I take to quit smoking? Throw away all cigarettes at home, at work, and in your car. Throw away smoking accessories, such as ashtrays and lighters. Clean your car. Make sure to empty the ashtray. Clean your home, including curtains and carpets. What strategies can I use to quit smoking? Talk with your health care provider about combining strategies, such as taking medicines while you are also receiving in-person counseling. Using these two strategies together makes you more likely to succeed in quitting than if you used either strategy on its own. If you are or , talk with your health care provider about finding counseling or other support strategies to quit smoking. Do not take medicine to help you quit smoking unless your health care provider tells you to do so. To quit smoking: Quit right away Quit smoking completely, instead of gradually reducing how much you smoke over a period of time. Research shows that stopping smoking right away is more successful than gradually quitting. Attend in-person counseling to help you build problem-solving skills. You are more likely to succeed in quitting if you attend counseling sessions regularly. Even short sessions of 10 minutes can be effective. Take medicine You may take medicines to help you quit smoking. Some medicines require a prescription and some youcan purchase jmbu-xdt-kbexlwg. Medicines may have nicotine in them to replace the nicotine in cigarettes. Medicines may: Help to stop cravings. Help to relieve withdrawal symptoms. Your health care provider may recommend: Nicotine patches, gum, or lozenges. Nicotine inhalers or sprays. Non-nicotine medicine that is taken by mouth. Find resources Find resources and support systems that can help you to quit smoking and remain smoke-free after you quit. These resources are most helpful when you use them often. They include: Online chats with a counselor. Telephone quitlines. Printed self-help materials. Support groups or group counseling. Text messaging programs. Mobile phone apps or applications. Use apps that can help you stick to your quit plan by providing reminders, tips, and encouragement. There are many free apps for mobile devices as well as websites.Examples include Quit Guide from the CDC and smokefree.gov What things can I do to make it easier to quit? Reach out to your family and friends for support and encouragement. Call telephone quitlines (0-059-QZGB-NOW), reach out to support groups, or work with a counselor for support. Ask people who smoke to avoid smoking around you. Avoid places that trigger you to smoke, such as bars, parties, or smoke-break areas at work. Spend time with people who do not smoke. Lessen the stress in your life. Stress can be a smoking trigger for some people. To lessen stress, try: ?Exercising regularly. ?Doing deep-breathing exercises. ?Doing yoga. ?Meditating. ?Performing a body scan. This involves closing your eyes, scanning your body from head to toe, and noticing which parts of your body are particularly tense. Try to relax the muscles in those areas. How will I feel when I quit smoking? Day 1 to 3 weeks Within the first 24 hours of quitting smoking, you may start to feel withdrawal symptoms. These symptoms are usually most noticeable 2 3 days after quitting, but they usually do not last for more than 2 3 weeks. You may experience these symptoms: Mood swings. Restlessness, anxiety, or irritability. Trouble concentrating. Dizziness. Strong cravings for sugary foods and nicotine. Mild weight gain. Constipation. Nausea. Coughing or a sore throat. Changes in how the medicines that you take for unrelated issues work in your body. Depression. Trouble sleeping (insomnia). Week 3 and afterward After the first 2 3 weeks of quitting, you may start to notice more positive results, such as: Improved sense of smell and taste. Decreased coughing and sore throat. Slower heart rate. Lower blood pressure. Clearer skin. The ability to breathe more easily. Fewer sick days. Quitting smoking can be very challenging. Do not get discouraged if you are not successful the first time. Some people need to make many attempts to quit before they achieve long-term success. Do your best to stick to your quit plan, and talk with your health care provider if you have any questionsor concerns. Summary Smoking tobacco is the leading cause of preventable . Quitting smoking is one of the best things that you can do for your health. When you decide to quit smoking, create a plan to help you succeed. Quit smoking right away, not slowly over a period of time. When you start quitting, seek help from your health care provider, family, or friends. This information is not intended to replace advice given to you by your health care provider. Make sure you discuss any questions you have with your health care provider. Document Released: 05/24/2002 Document Revised: 08/17/2019 Document Reviewed: 08/18/2019 [employer] Patient Education 2020 [employer]. 08/02/2022 13:20:24 Hypertension, Adult Hypertension, Adult High blood pressure (hypertension) is when the force of blood pumping through the arteries is too strong. The arteries are the blood vessels that carry blood from the heart throughout the body. Hypertension forces the heart to work harder to pump blood and may cause arteries to become narrow or stiff. Untreated or uncontrolled hypertension can cause a heart attack, heart failure, a stroke, kidneydisease, and other problems. A blood pressure reading consists of a higher number over a lower number. Ideally, your blood pressure should be below 120/80. The first ( top ) number is called the systolic pressure. It is a measure of the pressure in your arteries as your heart beats. The second ( bottom ) number is called the diastolic pressure. It is a measure of the pressure in your arteries as the heart relaxes. What are the causes? The exact cause of this condition is not known. There are some conditions that result in or are related to high blood pressure. What increases the risk? Some risk factors for high blood pressure are under your control. The following factors may make you more likely to develop this condition: Smoking. Having type 2 diabetes mellitus, high cholesterol, or both. Not getting enough exercise or physical activity. Being overweight. Having too much fat, sugar, calories, or salt (sodium) in your diet. Drinking too much alcohol. Some risk factors for high blood pressure may be difficult or impossible to change. Some of these factors include: Having chronic kidney disease. Having a family history of high blood pressure. Age. Risk increases with age. Race. You may be at higher risk if you are . Gender. Men are at higher risk than women before age 45. After age 65, women are at higher risk than men. Having obstructive sleep apnea. Stress. What are the signs or symptoms? High blood pressure may not cause symptoms. Very high blood pressure (hypertensive crisis) may cause: Headache. Anxiety. Shortness of breath. Nosebleed. Nausea and vomiting. Vision changes. Severe chest pain. Seizures. How is this diagnosed? This condition is diagnosed by measuring your blood pressure while you are seated, with your arm resting on a flat surface, your legs uncrossed, and your feet flat on the floor. The cuff of the bloodpressure monitor will be placed directly against the skin of your upper arm at the level of your heart. It should be measured at least twice using the same arm. Certain conditions can cause a difference in blood pressure between your right and left arms. Certain factors can cause blood pressure readings to be lower or higher than normal for a short period of time: When your blood pressure is higher when you are in a health care provider's office than when you are at home, this is called white coat hypertension. Most people with this condition do not need medicines. When your blood pressure is higher at home than when you are in a health care provider's office, this is called masked hypertension. Most people with this condition may need medicines to control blood pressure. If you have a high blood pressure reading during one visit or you have normal blood pressure with other risk factors, you may be asked to: Return on a different day to have your blood pressure checked again. Monitor your blood pressure at home for 1 week or longer. If you are diagnosed with hypertension, you may have other blood or imaging tests to help your health care provider understand your overall risk for other conditions. How is this treated? This condition is treated by making healthy lifestyle changes, such as eating healthy foods, exercising more, and reducing your alcohol intake. Your health care provider may prescribe medicine if lifestyle changes are not enough to get your blood pressure under control, and if: Your systolic blood pressure is above 130. Your diastolic blood pressure is above 80. Your personal target blood pressure may vary depending on your medical conditions, your age, and other factors. Follow these instructions at home: Eating and drinking Eat a diet that is high in fiber and potassium, and low in sodium, added sugar, and fat. An exampleeating plan is called the DASH (Dietary Approaches to Stop Hypertension) diet. To eat this way: ?Eat plenty of fresh fruits and vegetables. Try to fill one half of your plate at each meal with fruits and vegetables. ?Eat whole grains, such as whole-wheat pasta, brown rice, or whole-grain bread. Fill about one fourth of your plate with whole grains. ?Eat or drink low-fat dairy products, such as skim milk or low-fat yogurt. ?Avoid fatty cuts of meat, processed or cured meats, and poultry with skin. Fill about one fourth of your plate with lean proteins, such as fish, chicken without skin, beans, eggs, or tofu. ?Avoid pre-made and processed foods. These tend to be higher in sodium, added sugar, and fat. Reduce your daily sodium intake. Most people with hypertension should eat less than 1,500 mg of sodium a day. Do not drink alcohol if: ?Your health care provider tells you not to drink. ?You are , may be , or are planning to become . If you drink alcohol: ?Limit how much you use to: ?0 1 drink a day for women. ?0 2 drinks a day for men. ?Be aware of how much alcohol is in your drink. In the [place] one drink equals one 12 oz bottle of beer (355 mL), one 5 oz glass of wine (148 mL), or one 1 oz glass of hard liquor (44 mL). Lifestyle Work with your health care provider to maintain a healthy body weight or to lose weight. Ask what an ideal weight is for you. Get at least 30 minutes of exercise most days of the week. Activities may include walking, swimming, or biking. Include exercise to strengthen your muscles (resistance exercise), such as Pilates or lifting weights, as part of your weekly exercise routine. Try to do these types of exercises for 30 minutes at least 3 days a week. Do not use any products that contain nicotine or tobacco, such as cigarettes, e- cigarettes, and chewing tobacco. If you need help quitting, ask your health care provider. Monitor your blood pressure at home as told by your health care provider. Keep all follow-up visits as told by your health care provider. This is important. Medicines Take uvxn-upt-gctxzoe and prescription medicines only as told by your health care provider. Follow directions carefully. Blood pressure medicines must be taken as prescribed. Do not skip doses of blood pressure medicine. Doing this puts you at risk for problems and can makethe medicine less effective. Ask your health care provider about side effects or reactions to medicines that you should watch for. Contact a health care provider if you: Think you are having a reaction to a medicine you are taking. Have headaches that keep coming back (recurring). Feel dizzy. Have swelling in your ankles. Have trouble with your vision. Get help right away if you: Develop a severe headache or confusion. Have unusual weakness or numbness. Feel faint. Have severe pain in your chest or abdomen. Vomit repeatedly. Have trouble breathing. Summary Hypertension is when the force of blood pumping through your arteries is too strong. If this condition is not controlled, it may put you at risk for serious complications. Your personal target blood pressure may vary depending on your medical conditions, your age, and other factors. For most people, a normal blood pressure is less than 120/80. Hypertension is treated with lifestyle changes, medicines, or a combination of both. Lifestyle changes include losing weight, eating a healthy, low-sodium diet, exercising more, and limiting alcohol. This information is not intended to replace advice given to you by your health care provider. Make sure you discuss any questions you have with your health care provider. Document Released: 05/30/2006 Document Revised: 02/07/2019 Document Reviewed: 02/07/2019 [employer] Patient Education 2020 [employer] 08/02/2022 13:20:20 Health Maintenance After Age 65 Health Maintenance After Age 65 After age 65, you are at a higher risk for certain long-term diseases and infections as well as injuries from falls. Falls are a major cause of broken bones and head injuries in people who are older than age 65. Getting regular preventive care can help to keep you healthy and well. Preventive care includes getting regular testing and making lifestyle changes as recommended by your health care provider. Talk with your health care provider about: Which screenings and tests you should have. A screening is a test that checks for a disease when you have no symptoms. A diet and exercise plan that is right for you. What should I know about screenings and tests to prevent falls? Screening and testing are the best ways to find a health problem early. Early diagnosis and treatment give you the best chance of managing medical conditions that are common after age 65. Certain conditions and lifestyle choices may make you more likely to have a fall. Your health care provider mayrecommend: Regular vision checks. Poor vision and conditions such as cataracts can make you more likely to have a fall. If you wear glasses, make sure to get your prescription updated if your vision changes. Medicine review. Work with your health care provider to regularly review all of the medicines you are taking, including rxac-xos-jdwvtoc medicines. Ask your health care provider about any side effects that may make you more likely to have a fall. Tell your health care provider if any medicines thatyou take make you feel dizzy or sleepy. Osteoporosis screening. Osteoporosis is a condition that causes the bones to get weaker. This can make the bones weak and cause them to break more easily. Blood pressure screening. Blood pressure changes and medicines to control blood pressure can make you feel dizzy. Strength and balance checks. Your health care provider may recommend certain tests to check your strength and balance while standing, walking, or changing positions. Foot health exam. Foot pain and numbness, as well as not wearing proper footwear, can make you morelikely to have a fall. Depression screening. You may be more likely to have a fall if you have a fear of falling, feel emotionally low, or feel unable to do activities that you used to do. Alcohol use screening. Using too much alcohol can affect your balance and may make you more likely to have a fall. What actions can I take to lower my risk of falls? General instructions Talk with your health care provider about your risks for falling. Tell your health care provider if: ?You fall. Be sure to tell your health care provider about all falls, even ones that seem minor. ?You feel dizzy, sleepy, or off-balance. Take indi-qmf-iqnfdtx and prescription medicines only as told by your health care provider. These include any supplements. Eat a healthy diet and maintain a healthy weight. A healthy diet includes low- fat dairy products, low-fat (lean) meats, and fiber from whole grains, beans, and lots of fruits and vegetables. Home safety Remove any tripping hazards, such as rugs, cords, and clutter. Install safety equipment such as grab bars in bathrooms and safety rails on stairs. Keep rooms and walkways well-lit. Activity Follow a regular exercise program to stay fit. This will help you maintain your balance. Ask your health care provider what types of exercise are appropriate for you. If you need a cane or walker, use it as recommended by your health care provider. Wear supportive shoes that have nonskid soles. Lifestyle Do not drink alcohol if your health care provider tells you not to drink. If you drink alcohol, limit how much you have: ?0 1 drink a day for women. ?0 2 drinks a day for men. Be aware of how much alcohol is in your drink. In the [place] one drink equals one typical bottle of beer (12 oz), one-half glass of wine (5 oz), or one shot of hard liquor (1 oz). Do not use any products that contain nicotine or tobacco, such as cigarettes and e-cigarettes. If you need help quitting, ask your health care provider. Summary Having a healthy lifestyle and getting preventive care can help to protect your health and wellnessafter age 65. Screening and testing are the best way to find a health problem early and help you avoid having a fall. Early diagnosis and treatment give you the best chance for managing medical conditions that aremore common for people who are older than age 65. Falls are a major cause of broken bones and head injuries in people who are older than age 65. Takeprecautions to prevent a fall at home. Work with your health care provider to learn what changes you can make to improve your health and wellness and to prevent falls. This information is not intended to replace advice given to you by your health care provider. Make sure you discuss any questions you have with your health care provider. Document Released: 04/12/2018 Document Revised: 09/20/2019 Document Reviewed: 04/12/2018 [employer] Patient Education 2019 [employer] [facility] [place] 12-20-2022 Evaluation note* Encounter Date Diagnosis Assessment Notes Treatment Notes Treatment Clinical Notes May, Tooth infection (ICD-10 - K04.7) Take medications as directed.Highly encourage patient to contact dentist SERGIO for further treatment of infection. Do not take OTC medications like ibuprofen with prescriptions [facility] Dis[facility] Patient Education 01/20/2022 20:22:08 Hyponatremia, Jtgx-pd-Cqqk Hyponatremia Hyponatremia is when the amount of salt (sodium) in your blood is too low. When salt levels are low, your body may take in extra water. This can cause swelling throughout the body. The swelling oftenaffects the brain. What are the causes? This condition may be caused by: Certain medical problems or conditions. Vomiting a lot. Having watery poop (diarrhea) often. Certain medicines or illegal drugs. Not having enough water in the body (dehydration). Drinking too much water. Eating a diet that is low in salt. Large loving on your body. Too much sweating. What increases the risk? You are more likely to get this condition if you: Have long-term (chronic) kidney disease. Have heart failure. Have a medical condition that causes you to have watery poop often. Do very hard exercises. Take medicines that affect the amount of salt is in your blood. What are the signs or symptoms? Symptoms of this condition include: Headache. Feeling like you may vomit (nausea). Vomiting. Being very tired (lethargic). Muscle weakness and cramps. Not wanting to eat as much as normal (loss of appetite). Feeling weak or light-headed. Severe symptoms of this condition include: Confusion. Feeling restless (agitation). Having a fast heart rate. Passing out (fainting). Seizures. Coma. How is this treated? Treatment for this condition depends on the cause. Treatment may include: Getting fluids through an IV tube that is put into one of your veins. Taking medicines to fix the salt levels in your blood. If medicines are causing the problem, your medicines will need to be changed. Limiting how much water or fluid you take in. Monitoring in the hospital to watch your symptoms. Follow these instructions at home: Take vleb-qgk-pwszloo and prescription medicines only as told by your doctor. Many medicines can make this condition worse. Talk with your doctor about any medicines that you are taking. Eat and drink exactly as you are told by your doctor. ?Eat only the foods you are told to eat. ?Limit how much fluid you take. Do not drink alcohol. Keep all follow-up visits as told by your doctor. This is important. Contact a doctor if: You feel more like you may vomit. You feel more tired. Your headache gets worse. You feel more confused. You feel weaker. Your symptoms go away and then they come back. You have trouble following the diet instructions. Get help right away if: You have a seizure. You pass out. You keep having watery poop. You keep vomiting. Summary Hyponatremia is when the amount of salt in your blood is too low. When salt levels are low, you can have swelling throughout the body. The swelling mostly affects the brain. Treatment depends on the cause. Treatment may include getting IV fluids, medicines, or not drinkingas much fluid. This information is not intended to replace advice given to you by your health care provider. Make sure you discuss any questions you have with your health care provider. Document Released: 02/09/2012 Document Revised: 08/16/2019 Document Reviewed: 05/03/2019 [employer] Patient Education 2020 [employer]. Follow Up Care 07/23/2021 13:45:50 With:HUY LIM, LANCE Tadeo Address: [address] [place], [place] [id number]- When:6 months [facility] [place] 07-11-2022 Evaluation note* Encounter Date Diagnosis Assessment Notes Treatment Notes Treatment Clinical Notes Dec, Polyp of ascending colon, unspecified type (ICD-10 - K63.5) [facility] Other 05-16-2022 Hospital Discharge instructions Patient Education 10/26/2021 21:35:28 Nausea and Vomiting, Adult Nausea and Vomiting, Adult Nausea is the feeling that you have an upset stomach or that you are about to vomit. Vomiting is when stomach contents are thrown up and out of the mouth as a result of nausea. Vomiting can make you feel weak and cause you to become dehydrated. Dehydration can make you feel tired and thirsty, cause you to have a dry mouth, and decrease how often you urinate. Older adults and people with other diseases or a weak disease-fighting system (immune system) are at higher risk for dehydration. It is important to treat your nausea and vomiting as told by your health care provider. Follow these instructions at home: Watch your symptoms for any changes. Tell your health care provider about them. Follow these instructions to care for yourself at home. Eating and drinking Take an oral rehydration solution (ORS). This is a drink that is sold at pharmacies and retail stores. Drink clear fluids slowly and in small amounts as you are able. Clear fluids include water, ice chips, low-calorie sports drinks, and fruit juice that has water added (diluted fruit juice). Eat bland, zsxu-ur-vyyonv foods in small amounts as you are able. These foods include bananas, applesauce, rice, lean meats, toast, and crackers. Avoid fluids that contain a lot of sugar or caffeine, such as energy drinks, sports drinks, and soda. Avoid alcohol. Avoid spicy or fatty foods. General instructions Take ikrn-qjq-sdtdgdi and prescription medicines only as told by your health care provider. Drink enough fluid to keep your urine pale yellow. Wash your hands often using soap and water. If soap and water are not available, use hand outreach worker. Make sure that all people in your household wash their hands well and often. Rest at home while you recover. Watch your condition for any changes. Breathe slowly and deeply when you feel nauseated. Keep all follow-up visits as told by your health care provider. This is important. Contact a health care provider if: Your symptoms get worse. You have new symptoms. You have a fever. You cannot drink fluids without vomiting. Your nausea does not go away after 2 days. You feel light-headed or dizzy. You have a headache. You have muscle cramps. You have a rash. You have pain while urinating. Get help right away if: You have pain in your chest, neck, arm, or jaw. You feel extremely weak or you faint. You have persistent vomiting. You have vomit that is bright red or looks like black coffee grounds. You have bloody or black stools or stools that look like tar. You have a severe headache, a stiff neck, or both. You have severe pain, cramping, or bloating in your abdomen. You have difficulty breathing, or you are breathing very quickly. Your heart is beating very quickly. Your skin feels cold and clammy. You feel confused. You have signs of dehydration, such as: ?Dark urine, very little urine, or no urine. ?Cracked lips. ?Dry mouth. ?Sunken eyes. ?Sleepiness. ?Weakness. These symptoms may represent a serious problem that is an emergency. Do not wait to see if the symptoms will go away. Get medical help right away. Call your local emergency services (911 in the [place] Do not drive yourself to the hospital. Summary Nausea is the feeling that you have an upset stomach or that you are about to vomit. As nausea getsworse, it can lead to vomiting. Vomiting can make you feel weak and cause you to become dehydrated. Follow instructions from your health care provider about eating and drinking to prevent dehydration. Take ityf-bnz-lurivhu and prescription medicines only as told by your health care provider. Contact your health care provider if your symptoms get worse, or you have new symptoms. Keep all follow-up visits as told by your health care provider. This is important. This information is not intended to replace advice given to you by your health care provider. Make sure you discuss any questions you have with your health care provider. Document Released: 05/30/2006 Document Revised: 09/21/2019 Document Reviewed: 11/07/2018 [employer] Patient Education 2020 [employer]. Follow Up Care 10/26/2021 11:29:31 With:Jaclyn SON MD, FAM Address: When: only if needed [facility] [place] 08-04-2021 History of Present illness Narrative* Alicia Sharma RN - 01/14/2021 9:59 AM EDT Report called to KIM Wilhelm at [facility] at this time. * Phuong Still LSW - 01/14/2021 8:37 AM EDT Pt discharged to [facility] today. Arranged transport for [facility] at 10:05 am. SHANEL called and notified vimal Morgan of arrangements and she is in agreement. Nursing notified. SHANEL calledto [facility] and left a message for Olya in admissions regarding arrangements. Faxed discharge summary and HENS to Olya. No further needs identified. Phuong Laureano SWORD SWALLOWER WORK STATION SUPPORT SPECIALIST 01/14/2021 * Alicia Sharma RN - 01/14/2021 7:58 AM EDT Offered to get pt up to chair for breakfast; pt declines and states she canceled her breakfast trayas she doesn't eat breakfast . Pt educated on discharge time of 1000 with Shalom Sanchez to go to [facility]. Pt concerned about daughter, Cathy, being made aware of discharge. Phuong in social work contacted and states that she spoke to Cathy and she is aware of discharge time and plan. * Aurelio Saldana MD - 01/14/2021 5:58 AM EDT Hospitalist Progress Note 01/14/2021 5:58 AM Subjective: Admit Date: 01/08/2021 PCP: Jaclyn Son MD Interval History: Teresita feels she is doing much better. She feels the iron pill caused nausea yesterday morning but she ate lunch and dinner with no problems. No chest pain or SOB. She states her coughhas nearly resolved. Pain is controlled. Bowels moved yesterday. Diet: Adult Oral Nutrition Supplement; Standard High Calorie/High Protein Oral Supplement ADULT DIET; Regular Medications: Scheduled Meds: lactobacillus 1 capsule Oral Daily with breakfast sodium chloride 2 spray Nasal 4x Daily docusate sodium 100 mg Oral Daily budesonide-formoterol 2 puff Inhalation BID levofloxacin 250 mg Intravenous Q24H pantoprazole 40 mg Oral QAM AC guaiFENesin 600 mg Oral BID enoxaparin 30 mg Subcutaneous Daily sodium chloride flush 5-40 mL Intravenous 2 times per day sennosides-docusate sodium 1 tablet Oral BID sodium chloride flush 5-40 mL Intravenous 2 times per day Continuous Infusions: sodium chloride sodium chloride sodium chloride Patient's current medications documented, reviewed, and updated. CBC: Recent Labs 01/11/21205001/11/21205001/12/2145401/13/2144401/14/21439 WBC 12.1* -- 10.9 8.4 -- HGB 9.0* < > 8.8* 8.3* 8.3* PLT 109* -- 114* 124* -- < > = values in this interval not displayed. BMP: Recent Labs 01/12/2145401/13/21444 NA 135 135 K 4.6 4.8 CL 104 101 CO2 26 31 BUN 18 16 CREATININE 1.18* 1.11* GLUCOSE 97 104* Hepatic: No results for input(s): AST, ALT, ALB, BILITOT, ALKPHOS in the last 72 hours. Troponin: No results for input(s): TROPONINI in the last 72 hours. BNP: No results for input(s): BNP in the last 72 hours. Lipids: No results for input(s): CHOL, HDL in the last 72 hours. Invalid input(s): LDLCALCU INR: No results for input(s): INR in the last 72 hours. Objective: Vitals: BP (!) 158/78 Pulse 91 Temp 98.5 F (36.9 C) (Oral) Resp 20 Ht 5' 1 (1.549 m) Wt 113 lb 3.2 oz (51.3 kg) SpO2 94% BMI 21.39 kg/m General appearance: alert and cooperative with exam HEENT: Head: Normocephalic, no lesions, without obvious abnormality. Eye: Normal external eye, conjunctiva, lids cornea, DIANA. Nose: Normal external nose, mucus membranes and septum. Nose: Nasal oxygen on. Neck: no adenopathy, no carotid bruit and supple, symmetrical, trachea midline Lungs: clear to auscultation bilaterally but diminished posteriorly in the bases Heart: regular rate and rhythm, S1, S2 normal and II/ systolic murmur. Abdomen: soft, non-tender; bowel sounds normal; no masses, no organomegaly Extremities: No calf tenderness. Neurologic: Mental status: Alert, oriented, thought content appropriate Assessment and Plan: 1. Right hip fracture - S/P right intertrochanteric hip fracture cephalomedullary nailing on 01/09/21, by Dr. Michelle. 2. Post op anemia - S/P 2 units PRBC on 01/10. Hgb stable at 8.3 x 2 days. Can't tolerate iron secondary to nausea. 3. Post op nausea / vomiting - improved with hydration. On PRN Zofran / Reglan. 4. LLL Pneumonia - started on Levaquin with WBC normalizing and cough improving. Patient reports that she had a significant cough with production when she was admitted. 5. COPD - patient continues to smoke. Symptoms have improved on Symbicort. 6. Hyperlipidemia - Patient requests Lipitor be discontinued at this makes her sick. 7. Smoker - refuses Nicoderm patch. Plan: 1. DC to ECF today. DVT prophylaxis: [x] Lovenox [] SCDs [] SQ Heparin [] Encourage ambulation, low risk for DVT, no chemical or mechanical prophylaxis necessary [] Already on Anticoagulation Patient Active Problem List: Closed fracture of right hip with routine healing Closed hip fracture, right, initial encounter (HCC) Aurelio Saldana MD, MD [facility] * Shannan Musa LSW - 01/13/2021 4:14 PM EDT Received word from [facility], Olya, this p.m. re: Patient pre cert being approved. Olya states that Patient can be admitted to [facility] as soon as tomorrow if she is medically stable for discharge. HENS completed per this residential mortgage underwriter today. JOEY Pendleton 01/13/2021 * Evette Mane RN - 01/13/2021 8:57 AM EDT Patient c/o nausea after eating breakfast. PRN Reglan given. Patient up to bathroom with walker andSBA. Lucia care. Patient assisted to sink, for bath and oral care. Declines to change gown. This nurse encourages patient to sit upright in recliner, however, patient returns to bed. Emesis bag given to patient. Declines needs at this time 0940. * Aurelio Saldana MD - 01/13/2021 6:18 AM EDT Hospitalist Progress Note 01/13/2021 6:19 AM Subjective: Admit Date: 01/08/2021 PCP: Jaclyn Son MD Interval History: Lencho has no complaints this morning. She requests that Lipitor be discontinued as she feels this makes her sick. Pain is controlled. No chest pain or SOB. Cough is improving on the antibiotic. She reports 2 BM's yesterday. No trouble urinating. She states she understands the plan to go to an ECF. Diet: Adult Oral Nutrition Supplement; Standard High Calorie/High Protein Oral Supplement ADULT DIET; Regular Medications: Scheduled Meds: sodium chloride 2 spray Nasal 4x Daily docusate sodium 100 mg Oral Daily budesonide-formoterol 2 puff Inhalation BID atorvastatin 20 mg Oral Nightly levofloxacin 250 mg Intravenous Q24H pantoprazole 40 mg Oral QAM AC guaiFENesin 600 mg Oral BID enoxaparin 30 mg Subcutaneous Daily sodium chloride flush 5-40 mL Intravenous 2 times per day sennosides-docusate sodium 1 tablet Oral BID sodium chloride flush 5-40 mL Intravenous 2 times per day Continuous Infusions: sodium chloride sodium chloride sodium chloride Patient's current medications documented, reviewed, and updated. CBC: Recent Labs 01/11/21205001/12/215 01/13/21 0445 WBC 12.1* 10.9 8.4 HGB 9.0* 8.8* 8.3* PLT 109* 114* 124* BMP: Recent Labs 01/11/21 0515 01/12/21 0455 01/13/21 0445 NA 137 135 135 K 4.8 4.6 4.8 CL 108* 104 101 CO2 26 26 31 BUN 19 18 16 CREATININE 1.35* 1.18* 1.11* GLUCOSE 102* 97 104* Hepatic: No results for input(s): AST, ALT, ALB, BILITOT, ALKPHOS in the last 72 hours. Troponin: No results for input(s): TROPONINI in the last 72 hours. BNP: No results for input(s): BNP in the last 72 hours. Lipids: No results for input(s): CHOL, HDL in the last 72 hours. Invalid input(s): LDLCALCU INR: No results for input(s): INR in the last 72 hours. Objective: Vitals: BP 139/66 Pulse 94 Temp 98.4 F (36.9 C) (Oral) Resp 16 Ht 5' 1 (1.549 m) Wt 113 lb 3.2 oz (51.3 kg) SpO2 98% BMI 21.39 kg/m General appearance: alert and cooperative with exam HEENT: Head: Normocephalic, no lesions, without obvious abnormality. Eye: Normal external eye, conjunctiva, lids cornea, DIANA. Nose: Normal external nose, mucus membranes and septum. Neck: no adenopathy, no carotid bruit and supple, symmetrical, trachea midline Lungs: clear to auscultation bilaterally Heart: S1S2, regular Abdomen: soft, non-tender; bowel sounds normal; no masses, no organomegaly Extremities: No calf tenderness. Neurologic: Mental status: Alert, oriented, thought content appropriate Assessment and Plan: 1. Right hip fracture - S/P right intertrochanteric hip fracture cephalomedullary nailing on 01/09/21, by Dr. Michelle. 2. Post op anemia - S/P 2 units PRBC on 01/10. 3. Post op nausea / vomiting - improved with hydration. On PRN Zofran / Reglan. 4. LLL Pneumonia - started on Levaquin with WBC normalizing and cough improving. 5. COPD - patient continues to smoke. 6. Hyperlipidemia - Patient requests Lipitor be discontinued at this makes her sick. 7. Smoker - refuses Nicoderm patch. Plan: 1. Add Iron sulfate daily with her Hgb continuing to drop. 2. DC to ECF when approved by insurance. DVT prophylaxis: [x] Lovenox [] SCDs [] SQ Heparin [] Encourage ambulation, low risk for DVT, no chemical or mechanical prophylaxis necessary [] Already on Anticoagulation Patient Active Problem List: Closed fracture of right hip with routine healing Closed hip fracture, right, initial encounter ([facility]) Aurelio Saldana MD, MD [facility] Hospitalist * Phuong Still LSW - 01/12/2021 3:14 PM EDT [facility] calls back and states that they will accept pt. [place] will start pre cert with insurance this afternoon. Phuong Laureano SWORD SWALLOWER WORK STATION SUPPORT SPECIALIST 01/12/2021 * Kala Cordero OT - 01/12/2021 2:10 PM EDT [facility] Occupational Therapy Evaluation Date: 01/12/2021 Patient Name: Lencho Candelario : 1950 (70 y.o.) Gender: female Referring Practitioner: Dr. Saldana Additional Pertinent Hx: Patient fell in kitchen and sustained a R hip fracture. Patient is referred to OT services due to weakness and inability to complete ADL tasks. Past Medical History: Diagnosis Date Hyperlipidemia Past Surgical History: Procedure Laterality Date FEMUR FRACTURE SURGERY Right 01/09/2021 FEMUR FRACTURE SURGERY Right 01/09/2021 FEMUR IM NAIL JERRY INSERTION performed by Eugene Michelle MD at [facility] OR Other position/activity restrictions: 50% WB RLE Subjective Subjective: Patient is seated in bedside chair upon arrival. Pain Level: 0 Pain Location: Hip Pain Orientation: Right Orientation Overall Orientation Status: Within Normal Limits Vision Vision: Within Functional Limits Hearing Hearing: Within functional limits Social/Functional History Lives With: Alone Type of Home: Apartment Home Layout: One level Home Access: Level entry Bathroom Toilet: Standard Home Equipment: (none noted) ADL Assistance: Independent Homemaking Assistance: Independent Homemaking Responsibilities: Yes Meal Prep Responsibility: Primary Laundry Responsibility: Primary Cleaning Responsibility: Primary Bill Paying/Finance Responsibility: Primary Shopping Responsibility: Primary Health Care Management: Primary Ambulation Assistance: Independent Transfer Assistance: Independent Active Splicing Technician: Yes IADL Comments: Active with daily household tasks Prior Function ADL Assistance: Independent Homemaking Assistance: Independent Ambulation Assistance: Independent Transfer Assistance: Independent Objective Gross LUE Strength: WFL Gross RUE Strength: WFL ADL Feeding: Independent Grooming: Setup UE Bathing: Setup LE Bathing: Setup, Moderate assistance UE Dressing: Setup LE Dressing: Setup, Moderate assistance Supine to Sit: Moderate assistance, 2 Person assistance Sit to Supine: Moderate assistance, 2 Person assistance Balance Sitting Balance: Independent Standing Balance: Contact guard assistance Assessment: Recommend OT services to address all ADL and IADL tasks in order to maximize safety andindependence with all ADL and IADL tasks. Goals Short term goals Time Frame for Short term goals: STG=LTG terminal makeup operator goals Time Frame for terminal makeup operator goals : 5 days (01-16-2021) jail goal 1: Patient to complete UB/LB bathing with set up jail goal 2: Patient to complete UB/LB dressing with set up jail goal 3: Patient to complete toileting task with supervision only. jail goal 4: Patient to tolerate static standing x5 minutes without LOB in order to complete self care tasks. Plan Times per day: Daily (1-2x day) Weeks: 5 days Time In: 1305 Time Out: 1325 Timed Coded Minutes: 0 Total Treatment Time: 20 OLU Caballero/Karen 01/12/2021 * Phuong Still LSW - 01/12/2021 2:04 PM EDT SW received call back from [facility] and they have decided to go with [facility] in [place] as her dtr works there as well. SHANEL made referral to [facility] and faxed over information. Phuong COOK 01/12/2021 * Phuong Still LSW - 01/12/2021 1:45 PM EDT SHAENL met with pt and daughters early this morning regarding placement and decisions about where they would like pt to go. They decided on [facility] TCU as first choice and [facility] secondary. SW called to [facility] and after many messages and phone contacts, the TCU at [facility] is no longer operating. Spoke with acute rehab therapy site coordinator at [facility] and she is willing to look at pt information. Although reports that the insurance pt carries will often not approve for their level of care. SHANEL also spoke with [facility] this morning and they are also in networkand willing to look at pt information. SHANEL called back to Cathy, daughter, and explained that first choice was no longer available and discussed the differences in acute rehab vs halfway facility. Cathy wishes to talk with pt and will call SW back with an answer. SW will await return call. Phuong KEENANW 01/12/2021 * Rosemary Fuller S - 01/12/2021 11:08 AM EDT [facility] Date: 01/12/2021 Physical Therapy Daily Note Patient Name: Lencho Candelario : 1950 (70 y.o.) Pt is PROGRESSING toward goals and increased independence of mobility this treatment session Assessment Sit to Stand: Minimal Assistance Stand to sit: Contact guard assistance WB Status: 50% WB on R LE Ambulation 1 Surface: level tile Device: Rolling Walker Assistance: Minimal assistance, Contact guard assistance Quality of Gait: fair Distance: 6 ftx2 Comments: verbal ues required for sequence of feet and walker Assessment: Patient in chair upon arrival per nursing, She agrees to complete seated exercises as outlined above with fair tolerance. Sit to stand from chair is min assist. She is able to ambulate ~5-6 ft x2 with wheeled walker and CGA/min . She requires verbal cues for proper sequence of feet and walker. Also needs cueing to not get so close to walker. Up in chair following with call light in reach and chair alarm attached. Safety Devices Type of devices: Call light within reach, Chair alarm in place, Gait belt, Left in chair Time In: 1009 Time Out: 1041 Timed Coded Minutes: 31 Total Treatment Time: 31 Exercises: See Flowsheets Plan Cont Per Plan Of Care Goals Short Term Goals Time Frame for Short term goals: 3 days - epxires 01/12/21 Short term goal 1: Transfer supine to sit with min/mod assist x 1 Short term goal 2: Transfer bed to chair using walker 50% WB with mod assist x 1-2 Short term goal 3: Good sitting balance to assist with self-care Ultrasound Supervisor Goals Time Frame for terminal makeup operator goals : 10 days - expires 01/19/21 jail goal 1: Transfer supine to sit with CG/min assist jail goal 2: Transfer bed to chair or commode with wh walker and min assist jail goal 3: Ambulate with wh walker 20-25 ft to bathroom for self-care tasks [facility] License Number: [id number] Date: 01/12/2021 * Lien Gerber RN - 01/12/2021 9:56 AM EDT Refuses nasal spray. Explained rational for spray- If I do that now I know I will vomit though denies nausea at this time. O2 decreased to 1L/NC. * Zaid Allen RD, LD - 01/12/2021 8:36 AM EDT Comprehensive Nutrition Assessment Type and Reason for Visit: Reassess Nutrition Recommendations/Plan: Encourage oral intakes Nutrition Assessment: Continued increased nutrient needs r/t acute injury or trauma, AEB post op healing needs. Denies n/v, and PO intakes are only fair. Is using Ensure, but not taking solids overlywell. I encouraged to utilize the solid foods first, then supplement at meals to maximize intakes. No new weights are available post op. Malnutrition Assessment: Malnutrition Status: At risk for malnutrition (Comment) Context: Acute Illness Findings of the 6 clinical characteristics of malnutrition: Energy Intake: Mild decrease in energy intake (Comment) (acute with NPO) Weight Loss: No significant weight loss Body Fat Loss: No significant body fat loss Muscle Mass Loss: No significant muscle mass loss Fluid Accumulation: No significant fluid accumulation [id number] Tank Crewman Strength: Not Performed Estimated Daily Nutrient Needs: Energy (kcal): 0609-0403 (27-32); Weight Used for Energy Requirements: Current Protein (g): 71-85 (1.5-1.8); Weight Used for Protein Requirements: Current Fluid (ml/day): 1500+; Method Used for Fluid Requirements: 1 ml/kcal Nutrition Related Findings: hypoactive b/s, + RLE edema at hip Wounds: Surgical Incision Current Nutrition Therapies: Adult Oral Nutrition Supplement; Standard High Calorie/High Protein Oral Supplement ADULT DIET; Regular Anthropometric Measures: Height: 5' 1 (154.9 cm) Current Body Weight: 104 lb 8 oz (47.4 kg) Admission Body Weight: 100 lb (45.4 kg) Usual Body Weight: 100 lb (45.4 kg) Howe Body Weight: 105 lbs; % Howe Body Weight 99.5 % BMI: 19.8 Adjusted Body Weight: ; No Adjustment BMI Categories: Normal Weight (BMI 18.5-24.9) Nutrition Diagnosis: Increased nutrient needs related to acute injury/trauma as evidenced by wounds Lab Results Component Value Date NA 135 01/12/2021 K 4.6 01/12/2021 CL 104 01/12/2021 CO2 26 01/12/2021 BUN 18 01/12/2021 CREATININE 1.18 (H) 01/12/2021 GLUCOSE 97 01/12/2021 CALCIUM 8.2 (L) 01/12/2021 LABGLOM 45 (L) 01/12/2021 GFRAA 55 (L) 01/12/2021 Nutrition Interventions: Food and/or Nutrient Delivery: Continue Oral Nutrition Supplement, Continue Current Diet Nutrition Education/Counseling: Education initiated Coordination of Nutrition Care: Continue to monitor while inpatient Goals: PO > 75% meals and supplements on advanced diet Nutrition Monitoring and Evaluation: Behavioral-Environmental Outcomes: None Identified Food/Nutrient Intake Outcomes: Food and Nutrient Intake, Supplement Intake Physical Signs/Symptoms Outcomes: Fluid Status or Edema, Biochemical Data, Weight Discharge Planning: Continue Oral Nutrition Supplement Contact: [id number] * Aurelio Saldana MD - 01/12/2021 6:23 AM EDT Hospitalist Progress Note 01/12/2021 6:23 AM Subjective: Admit Date: 01/08/2021 PCP: Jaclyn Son MD Interval History: Lencho has no complaints this am. She feels her nausea is improving. No chest pain or SOB but continues to have some wheezing. Cough seems better since starting on Levaquin with normal WBC this am and no fever. No BM since admission but doesn't feel she needs to go. Urine streamgood. Pain is controlled. Nose dry secondary to oxygen. Diet: Adult Oral Nutrition Supplement; Standard High Calorie/High Protein Oral Supplement ADULT DIET; Regular Medications: Scheduled Meds: sodium chloride 2 spray Nasal 4x Daily docusate sodium 100 mg Oral Daily budesonide-formoterol 2 puff Inhalation BID levofloxacin 250 mg Intravenous Q24H pantoprazole 40 mg Oral QAM AC guaiFENesin 600 mg Oral BID enoxaparin 30 mg Subcutaneous Daily sodium chloride flush 5-40 mL Intravenous 2 times per day sennosides-docusate sodium 1 tablet Oral BID sodium chloride flush 5-40 mL Intravenous 2 times per day Continuous Infusions: sodium chloride sodium chloride 75 mL/hr at 01/11/21 1141 sodium chloride sodium chloride Patient's current medications documented, reviewed, and updated. CBC: Recent Labs 01/11/21 1610 01/11/21 2051 01/12/21 0455 WBC 12.8* 12.1* 10.9 HGB 8.9* 9.0* 8.8* PLT 107* 109* 114* BMP: Recent Labs 01/10/21 0512 01/11/21 0515 01/12/21 0455 NA 135 137 135 K 5.4* 4.8 4.6 CL 106 108* 104 CO2 22 26 26 BUN 19 19 18 CREATININE 1.63* 1.35* 1.18* GLUCOSE 157* 102* 97 Hepatic: No results for input(s): AST, ALT, ALB, BILITOT, ALKPHOS in the last 72 hours. Troponin: No results for input(s): TROPONINI in the last 72 hours. BNP: No results for input(s): BNP in the last 72 hours. Lipids: No results for input(s): CHOL, HDL in the last 72 hours. Invalid input(s): LDLCALCU INR: No results for input(s): INR in the last 72 hours. Objective: Vitals: BP (!) 150/52 Pulse 97 Temp 98 F (36.7 C) (Oral) Resp 20 Ht 5' 1 (1.549 m) Wt 104 lb 8 oz (47.4 kg) SpO2 98% BMI 19.75 kg/m General appearance: alert and cooperative with exam HEENT: Head: Normocephalic, no lesions, without obvious abnormality. Eye: Normal external eye, conjunctiva, lids cornea, DIANA. Nose: Normal external nose, mucus membranes and septum. Nose: Nasal oxygen on. Neck: no adenopathy, no carotid bruit and supple, symmetrical, trachea midline Lungs: Few scattered expiratory wheezing. Heart: regular rate and rhythm and S1, S2 normal Abdomen: soft, non-tender; bowel sounds normal; no masses, no organomegaly Extremities: extremities normal, atraumatic, no cyanosis or edema Neurologic: Mental status: Alert, oriented, thought content appropriate Assessment and Plan: 1. Right hip fracture - S/P right intertrochanteric hip fracture cephalomedullary nailing on 01/09/21, by Dr. Michelle. 2. Post op anemia - S/P 2 units PRBC on 01/10. 3. Post op nausea / vomiting - improving with hydration. On PRN Zofran / Reglan. 4. LLL Pneumonia - started on Levaquin with WBC normalizing. 5. COPD - patient continues to smoke. 6. Hyperlipidemia - On Lipitor. 7. Smoker - refuses Nicoderm patch. Plan: 1. Add on Colace daily to prevent constipation. 2. Nasal saline spray QID. 3. Wean oxygen off as tolerated. 4. Add Symbicort 160/4.5: 2 puffs every 12 hours. 5. DC to ECF when arrangements are made. DVT prophylaxis: [x] Lovenox [] SCDs [] SQ Heparin [] Encourage ambulation, low risk for DVT, no chemical or mechanical prophylaxis necessary [] Already on Anticoagulation Patient Active Problem List: Closed fracture of right hip with routine healing Closed hip fracture, right, initial encounter (HCC) Documentation of the Current Medications in the Medical Record (x) I have utilized all available immediate resources to obtain, update, or review the patient's current medications. (Satisfies MIPS Performance) If Yes, Stop Here ( ) The patient is not eligible for medication reconciliation; the patient is in an emergent medical situation where delaying treatment would jeopardize the patient's health. (MIPS Performance exception / exclusion) ( ) I did not confirm, update or review the patient's current list of medications today. (Does not satisfy MIPS Performance) Advanced Care Plan (x) I confirmed that the patient's Advanced Care Plan is present, code status documented, or surrogate decision maker is listed in the patient's medical record. ( ) The patient's advanced care plan is not present because: (select) ( ) I confirmed today that the patient does not wish or was not able to name a surrogate decision maker or provide an Advance Care Plan. ( ) Hospice care is currently being provided or has been provided this calender year. ( ) I did not confirm today the presence of an Advance Care Plan or surrogate decision maker documented within the patient's medical record. (Does not satisfy MIPS performance). Aurelio Saldana MD, MD [facility] Hospitalist * Brenda Newby RN - 01/11/2021 6:[address] Lowry updated with CXR results. * Brenda Newby RN - 01/11/2021 6:15 PM EDT IV ATB begun infusing. Small drainage noted on top and middle dressing. Marker around drainage on dressing. Electronicallysigned by Brenda Newby RN on 01/11/2021 at 6:16 PM * Brenda Newby RN - 01/11/2021 5:47 PM EDT Patient has small emesis while eating supper. She ate 1/2 toasted cheese sandwich but tomato soup is what she reports made me throw up . Nurse again educates on food choices due to ongoing nausea/emesis. [place] option choices given and encouraged. Patient advised to avoid carbonated drinks, spicy and acidic foods at this time. Pt verbalizes understanding. PRN IV med administered d/t Emesis. * Jolene Barrett RPH - 01/11/2021 5:47 PM EDT Pharmacy Note Renal Dose Adjustment Lencho Candelario is a 70 y.o. female. Pharmacist assessment of renally cleared medications. Recent Labs 01/10/21 0512 01/11/21 0515 BUN 19 19 Recent Labs 01/10/21 0512 01/11/21 0515 CREATININE 1.63* 1.35* Estimated Creatinine Clearance: 29 mL/min (A) (based on SCr of 1.35 mg/dL (H)). Height: Ht Readings from Last 1 Encounters: 01/09/21 5' 1 (1.549 m) Weight: Wt Readings from Last 1 Encounters: 01/08/21 104 lb 8 oz (47.4 kg) The following medication dose has been adjusted based upon renal function per P&T Guidelines: Levofloxacin 500 mg IV daily --> Levofloxacin 500 mg IV x1 followed by Levofloxacin 250 mg IV daily Jolene Barrett, PharmD, 01/11/2021 5:43 PM * Brenda Newby RN - 01/11/2021 5:[address] Martinez updated with lab result. New orders rec'd * Sonia Watson - 01/11/2021 9:38 AM EDT [facility] Date: 01/11/2021 Physical Therapy Daily Note Patient Name: Lencho Candelario : 1950 (70 y.o.) Pt is PROGRESSING toward goals and increased independence of mobility this treatment session Assessment: Nursing advises pt had nausea for the rest of the day yesterday. Upon arrival pt is in bed still c/o nausea but is willing to participate. Transfers supine to sit with minimal assist for right LE management, transfer is slow with verbal cueing to scoot to edge of bed. Pt sat bedside forseveral minutes , she c/o nausea but no emesis or dizziness. Transferred to stand with minimal assist and cues for hand placement. Pt educated on 50% weight bearing. Pt was able to take steps to beside chair with minimal assist and cues for proper sequencing and proper stand to sit. Pt follows commands well. Pt was +2 assist today for safety. Once up in chair pt is positioned for comfort with LE's elevated and ice applied to hip. Will progress with ex as jose e. Safety Devices Type of devices: Call light within reach, Gait belt, Nurse notified, Left in chair Time In: 854 Time Out: 919 Timed Coded Minutes: 25 Total Treatment Time: 25 Exercises: See Flowsheets Plan Cont Per Plan Of Care Goals Short Term Goals Time Frame for Short term goals: 3 days - epxires 01/12/21 Short term goal 1: Transfer supine to sit with min/mod assist x 1 Short term goal 2: Transfer bed to chair using walker 50% WB with mod assist x 1-2 Short term goal 3: Good sitting balance to assist with self-care Ultrasound Supervisor Goals Time Frame for jail goals : 10 days - expires 01/19/21 jail goal 1: Transfer supine to sit with CG/min assist jail goal 2: Transfer bed to chair or commode with wh walker and min assist jail goal 3: Ambulate with wh walker 20-25 ft to bathroom for self-care tasks Sonia Watson GEODUCK DIVER Date: 01/11/2021 * Trisha Yu APRN - JAIME - 01/11/2021 9:05 AM EDT Department of Orthopedic Surgery Trisha Yu, PROCUREMENT COST COORDINATOR-C Progress Note SUBJECTIVE Patient is sitting up at bedside with PT ready for transfer to rechospital for behavioral mediciner. She states her nausea and pain is currently manageable after switching medications. No other complaints today. OBJECTIVE BP 138/63 Pulse 98 Temp 98.6 F (37 C) (Oral) Resp 18 Ht 5' 1 (1.549 m) Wt 104 lb 8 oz (47.4 kg) SpO2 97% BMI 19.75 kg/m Physical Dressings C/D/I No redness and mild swelling Calf and thigh Supple DNVI LABS CBC: Recent Labs 01/10/21 0512 01/10/21 1018 01/11/21 0515 WBC 9.4 10.0 11.8* HGB 7.0* 8.3* 9.2* PLT 151 135* 107* BMP: Recent Labs 01/09/21 0625 01/10/21 0512 01/11/21 0515 NA 135 135 137 K 5.0 5.4* 4.8 CL 103 106 108* CO2 26 22 26 BUN 16 19 19 CREATININE 1.38* 1.63* 1.35* GLUCOSE 131* 157* 102* ASSESSMENT AND PLAN HG improved after 2 units PRBC to 9.2. WBC slightly elevated today most likely reactive. Repeat CBCtomorrow. Pain is managed with Butler and nausea is better after receiving Reglan. Vitals stable. Will continue to work with PT. * Isaias Lowry MD - 01/11/2021 7:46 AM EDT Hospitalist Progress Note 01/11/2021 7:46 AM Subjective: Admit Date: 01/08/2021 PCP: Jaclyn Son MD Interval History: Lencho had multiple episodes of nausea and vomiting yesterday. It was presumed to be secondary topain medications. However she continued to have nausea despite avoiding pain meds. We obtained abdominal x-ray and it did not reveal any evidence of SBO or other acute abnormalities. We ordered Reglan for her nausea vomiting. This morning she feels much better. She has good urine output around 700 cc per shift. She received 2 units of PRBC yesterday and her H&H improved. She reports no shortness of breath, chest pain, abdominal pain Diet: Adult Oral Nutrition Supplement; Standard High Calorie/High Protein Oral Supplement ADULT DIET; Regular Medications: Scheduled Meds: pantoprazole 40 mg Oral QAM AC guaiFENesin 600 mg Oral BID enoxaparin 30 mg Subcutaneous Daily sodium chloride flush 5-40 mL Intravenous 2 times per day sennosides-docusate sodium 1 tablet Oral BID sodium chloride flush 5-40 mL Intravenous 2 times per day Continuous Infusions: sodium chloride sodium chloride 125 mL/hr at 01/11/21 0233 sodium chloride sodium chloride PRN Medications: sodium chloride, HYDROcodone 5 mg - acetaminophen, aluminum & magnesium hydroxide-simethicone, metoclopramide, levalbuterol, oxyCODONE- acetaminophen, ondansetron OR ondansetron, promethazine, sodium chloride flush, sodium chloride, magnesium hydroxide, morphine, sodium chloride flush, sodium chloride, polyethylene glycol, acetaminophen OR acetaminophen Objective: Vitals: BP (!) 134/51 Pulse 98 Temp 98.3 F (36.8 C) (Oral) Resp 18 Ht 5' 1 (1.549 m) Wt 104 lb 8 oz (47.4 kg) SpO2 95% BMI 19.75 kg/m BMI: Body mass index is 19.75 kg/m . CBC: Recent Labs 01/10/21 0512 01/10/21 1018 01/11/21 0515 WBC 9.4 10.0 11.8* HGB 7.0* 8.3* 9.2* PLT 151 135* 107* BMP: Recent Labs 01/09/21 0625 01/10/21 0512 01/11/21 0515 NA 135 135 137 K 5.0 5.4* 4.8 CL 103 106 108* CO2 26 22 26 BUN 16 19 19 CREATININE 1.38* 1.63* 1.35* GLUCOSE 131* 157* 102* Physical Exam: General Appearance: alert and oriented to person, place and time, in no acute distress Cardiovascular: normal rate, regular rhythm, normal S1 and S2, no murmurs, rubs, clicks, or gallops, distal pulses intact Pulmonary/Chest: clear to auscultation bilaterally- no wheezes, rales or rhonchi, normal air movement, no respiratory distress Abdomen: soft, non-tender, non-distended, normal bowel sounds Extremities: no cyanosis, clubbing or edema Neurological: alert, oriented, normal speech, no focal findings or movement disorder noted Assessment and Plan: 1 Closed hip fracture, right, initial encounter - s/p Right intertrochanteric hip fracture cephalomedullary nailing on 01/[address] Michelle. Pain managed with Butler , IV morphine. Consult PT and OT. Consult social service for discharge planning. 2. Acute anemia - probably due to bleed into the hip area, perioperative blood loss and dilutional.S/P 2 units of PRBC 01/10, H&H improved 3. Acute on CKD - no old labs available for comparison. Renal function improved with IV fluids, urine output also improved, monitor 4. Probable underlying COPD -patient had wheezing after surgery, started on Xopenex every 4 hours prn 5. Hyperkalemia -resolved 6. Nausea and vomiting possibly due to opioid analgesics -resolving. On prn Zofran, Reglan. Also started on Protonix. Percocet changed to Butler and she seems to be tolerating better 7. Tobacco abuse -declined nicotine patch 8. Mild leukocytosis -possibly reactive. She has no fever. Patient has no complaints. We will follow-up with CBC tomorrow Patient continues to require inpatient admission related to need for IV fluids, monitoring labs, clinical condition Rounding Hospitalist * Maribel Estrada RN - 01/10/2021 8:48 PM EDT Form Presser calls and gives Dr. Lowry update on pt. New orders received and entered. * Brenda Newby RN - 01/10/2021 5:56 PM EDT Pt ate 2 bites of jello and 2 spoonfuls of broth for supper. She now reports nausea but no emesis. Will continue to monitor, provide comfort and prn medications as ordered. * Brenda Newby RN - 01/10/2021 3:[address] Lowry updated. OK to give IV Zofran given per doctor. KUB ordered. * Brenda Newby RN - 01/10/2021 2:49 PM EDT Patient has emesis again, vanessa 250 cc. Brown in color. PRN given see Mar * Brenda Newby RN - 01/10/2021 12:58 PM EDT RT in for scheduled breathing treatment. * Brenda Newby RN - 01/10/2021 12:40 PM EDT Pt cancelled lunch due to nausea but does report it has almost completely subsided. She is A&O,second unit of PRBC begun, no s/s of reaction. Pt tolerated unit earlier today without any problems. Nurse remains at bedside for first 15 minutes of infusion. * Brenda Newby RN - 01/10/2021 11:38 AM EDT Pt reports a little when asked if the medication helped the nausea. Spoke with Dr Lowry and Trisha PROCUREMENT COST COORDINATOR about patient report of nausea from Percocet. Pain med order changed per Dr Lowry. Both PROCUREMENT COST COORDINATOR and physician conferred with regarding second unit of blood. Trisha informs this residential mortgage underwriter she will be in to round, will confirm need for second unit at that time. CBC drawn post first unit HgB 8.3. * Trisha Yu APRN - CNP - 01/10/2021 11:32 AM EDT Department of Orthopedic Surgery Trisha Yu PROCUREMENT COST COORDINATOR-C Progress Note SUBJECTIVE Patient is post-op day #1 from right hip IM nail. She reports some nausea/vomiting most likely from the Percocet. Pain is well controlled. Has no other complaints today. OBJECTIVE BP (!) 128/44 Comment: pt just completed breathing tx and spiromtry Pulse 100 Temp 98.3 F (36.8C) (Oral) Resp 20 Ht 5' 1 (1.549 m) Wt 104 lb 8 oz (47.4 kg) SpO2 94% BMI 19.75 kg/m Physical Vitals stable Wound/dressings C/D/I Mild swelling to thigh Calf Supple DNVI LABS Hg 8.3, Hct 24.9, WBC 10.0 ASSESSMENT AND PLAN Plan is to transfuse another unit of PRBCs and re-check CBC. Dr. Lowry saw patient and will switch oral pain medication to Butler to see if patient tolerates better. Zofran as needed for nausea, also starting protonix. Will follow. * Isaias Lowry MD - 01/10/2021 11:12 AM EDT Hospitalist Progress Note 01/10/2021 11:12 AM Subjective: Admit Date: 01/08/2021 PCP: Jaclyn Son MD Interval History: Patient complains of nausea and vomiting. States has a history of indigestion and sometimes takes Prilosec at home. She also complains of pain at the hip side. Reports no shortness of breath, cough or wheezing. Reports no chest pain, abdominal pain, diarrhea Diet: Adult Oral Nutrition Supplement; Standard High Calorie/High Protein Oral Supplement ADULT DIET; Regular Medications: Scheduled Meds: ceFAZolin (ANCEF) IVPB 1,000 mg Intravenous Q8H enoxaparin 30 mg Subcutaneous Daily sodium chloride flush 5-40 mL Intravenous 2 times per day sennosides-docusate sodium 1 tablet Oral BID levalbuterol 1.25 mg Nebulization Q4H sodium chloride flush 5-40 mL Intravenous 2 times per day Continuous Infusions: sodium chloride sodium chloride 75 mL/hr at 01/09/212007 sodium chloride sodium chloride PRN Medications: sodium chloride, oxyCODONE-acetaminophen, ondansetron OR ondansetron, promethazine, sodium chloride flush, sodium chloride, magnesium hydroxide, morphine, sodium chloride flush, sodium chloride, polyethylene glycol, acetaminophen OR acetaminophen Objective: Vitals: BP (!) 128/44 Comment: pt just completed breathing tx and spiromtry Pulse 100 Temp 98.3F (36.8 C) (Oral) Resp 20 Ht 5' 1 (1.549 m) Wt 104 lb 8 oz (47.4 kg) SpO2 94% BMI 19.75 kg/m BMI: Body mass index is 19.75 kg/m . CBC: Recent Labs 01/09/21 0513 01/10/21 0512 01/10/21 1018 WBC 9.8 9.4 10.0 HGB 9.4* 7.0* 8.3* PLT 178 151 135* BMP: Recent Labs 01/09/21 0513 01/09/21 0625 01/10/21 0512 NA 136 135 135 K 6.1* 5.0 5.4* CL 102 103 106 CO2 28 26 22 BUN 17 16 19 CREATININE 1.45* 1.38* 1.63* GLUCOSE 129* 131* 157* Physical Exam: General Appearance: alert and oriented to person, place and time, in no acute distress Cardiovascular: normal rate, regular rhythm, normal S1 and S2, no murmurs, rubs, clicks, or gallops, distal pulses intact Pulmonary/Chest: clear to auscultation bilaterally- no wheezes, rales or rhonchi, normal air movement, no respiratory distress Abdomen: soft, non-tender, non-distended, normal bowel sounds Extremities: no cyanosis, clubbing or edema Neurological: alert, oriented, normal speech, no focal findings or movement disorder noted Assessment and Plan: 1 Closed hip fracture, right, initial encounter - s/p Right intertrochanteric hip fracture cephalomedullary nailing on 01/[address] Michelle. Pain managed with IV morphine, Percocet, however she becomes nauseous possibly due to Percocet and will switch it to Butler. Consult PT and OT 2. Acute anemia -probably due to bleed into the hip area, perioperative blood loss and dilutional. Hemoglobin is 7.0 this morning. Transfuse 2 units of PRBC, follow-up with CBC 3. Acute on CKD - no old labs available for comparison. Renal function worsening, increase IV fluidrate to 100 an hour, monitor input and output 4. Probable underlying COPD -patient had wheezing after surgery, started on Xopenex every 4 hours. 5. Hyperkalemia -patient with mild hyperkalemia, monitor 6. Nausea and vomiting possibly due to opioid analgesics and GERD -we will change Percocet to Butler, continue on IV fluids and as needed Zofran Start on Protonix 7. Tobacco abuse -declined nicotine patch Patient continues to require inpatient admission related to need for IV fluids, pain management, monitoring electrolytes, nausea and vomiting management [facility] [place] Hospitalist * Cristela Currie, PT - 01/10/2021 10:19 AM EDT [facility] Physical Therapy Evaluation Date: 01/10/2021 Patient Name: Lencho Candelario : 1950 (70 y.o.) Gender: female Referring Practitioner: Dr. Michelle Diagnosis: Right hip fracture with ORIF Additional Pertinent Hx: Patient admitted following a fall at home sustaining a right hip fracture.Underwent ORIF 01/09/21. Referred to PT for 50% wt bearing Past Medical History: Diagnosis Date Hyperlipidemia Past Surgical History: Procedure Laterality Date FEMUR FRACTURE SURGERY Right 01/09/2021 Restrictions Other position/activity restrictions: 50% WB RLE Subjective Pain Level: 0 Orientation Overall Orientation Status: Within Normal Limits Home Living Type of Home: Apartment Home Layout: One level Home Access: Level entry Home Equipment: (none noted) Prior Level of Function Prior Function ADL Assistance: Independent Homemaking Assistance: Independent Ambulation Assistance: Independent (No device) Transfer Assistance: Independent Objective Strength RLE Comment: Not tested due to recent surgery; active knee flex/ext graded 3/5. Strength LLE Strength LLE: WFL Comment: Generally 4+/5 Supine to Sit: Moderate assistance (for trunk/right LE) Sit to Supine: Maximal assistance Balance Sitting - Static: Fair, + Assessment Activity Tolerance: Other Chart Reviewed: Yes Assessment: Patient admitted following a fall at home sustaining a right hip fracture. She underwent ORIF 01/09/21 and is currently is 50% WB. She was referred to PT to assess mobility and strength. She requires mod assist of 1-2 for supine to sit. Upon sitting for several minutes she became very nauseated with dizziness and emesis. Sitting balance good initially until she became nauseated. Sat atbedside 5-10 min Due to nausea, patient then returned to bed. Nursing present during treatment session. Plan to progress with mobility as tolerated Prognosis: Good Type of devices: Bed alarm in place, Call light within reach, Gait belt, Left in bed, Nurse notified Plan Times per week: Daily Times per day: (1-2x per day' 1x Tuesday/Tuesday) Current Treatment Recommendations: Strengthening, Functional Mobility Training, Gait Training, Stair training, Transfer Training, Home Exercise Program, Safety Education & Training, Patient/Caregiver Education & Training Goals Short term goals Time Frame for Short term goals: 3 days - epxires 01/12/21 Short term goal 1: Transfer supine to sit with min/mod assist x 1 Short term goal 2: Transfer bed to chair using walker 50% WB with mod assist x 1-2 Short term goal 3: Good sitting balance to assist with self-care terminal makeup operator goals Time Frame for terminal makeup operator goals : 10 days - expires 01/19/21 jail goal 1: Transfer supine to sit with CG/min assist terminal makeup operator goal 2: Transfer bed to chair or commode with wh walker and min assist terminal makeup operator goal 3: Ambulate with wh walker 20-25 ft to bathroom for self-care tasks with CG/ min assist Time In: 909 Time Out: 50 Timed Coded Minutes: 0 Total Treatment Time: 40 CRISTELA CURRIE PT, PT 01/10/2021 * Brenda Newby RN - 01/10/2021 10:13 AM EDT Pt has emesis, prn given again due to patient having emesis vanessa 5-10 minutes after given po Phenergan * Brenda Newby RN - 01/10/2021 9:40 AM EDT Pt experiences nausea with emesis when positioned sitting bedside with PT. PRN anti nausea med per order. See mar. She denies pain at surg sites. Pt positioned back in bed, call light in reach. * Brenda Newby RN - 01/10/2021 8:32 AM EDT Pharmacy notifed of Ancef in [facility] as IV push. Request change to infusion. Electronically signedby Brenda Newby RN on 01/10/2021 at 8:32 AM * Brenda Newby RN - 01/10/2021 8:28 AM EDT Physician notified, sepsis protocol notification. Pt is afebrile, BP stable, WBC WNL. -CBC obtainedthis am. * Brenda Newby RN - 01/10/2021 7:42 AM EDT Pt A&O, denies pain at this time during report. PRBC's infusing into RAC line. PT requests Pepsi. Provided. She denies nausea. * Maribel Estrada RN - 01/10/2021 2:42 AM EDT Pt in bed, RR 13, respirations even and unlabored. No s/s of distress. Call light within reach. Will continue to monitor. * Adria Carr RN - 01/09/2021 7:17 PM EDT WHEEZING AND CRACKLES EVIDENT ANESTHESIA RECOMMENDS PATIENT TO RECEIVE BREATHING TREATMENTS * Phuong Still LSW - 01/09/2021 4:21 PM EDT SW met with pt this morning to complete assessment with publication manager during quality rounds. Pt is alert and oriented and cooperative with assessment. Pt is a 70 year old female admitted for comminuted intertrochanteric fracture of the proximal right femur. Pt is scheduled for surgery this afternoon. Pt lives alone in her apartment in [place]. Pt was not using any DME or community services prior to admission. Pt was driving prior to her injury. Pt is a full code and follows with Dr Tony Son as PCP. Pt does not have advance directives and is not currently interested in these. Pt chooses her daughters as decision makers and also met with palliative care later in the day and provided this info to her as well. ACP note completed. Pt reports that her medications are affordable. Pt and SW discussed where she might want to go for rehab at discharge based on facilities that accept her insurance. [place] of choice list provided as well. Pt chooses [facility]. SW made referral to [facility] and they will review and obtain insurance authorization once evaluations are complete and canbe sent in. Pt identifies no other concerns or needs currently. SW will follow and remain available. Phuong COOK 01/09/2021 * Alicia Sharma RN - 01/09/2021 11:39 AM EDT Pt repositioned for comfort and denies pain at present stating if I don't move I'm okay , pt is hesitant to take pain medication r/t nausea. Nausea improved at this time after PRN Phenergan; see eMAR for administration. * Zaid Allen RD, LD - 01/09/2021 10:03 AM EDT Comprehensive Nutrition Assessment Type and Reason for Visit: Initial Nutrition Recommendations/Plan: Encourage oral intakes post op. Nutrition Assessment: Increased nutrient needs r/t acute injury or trauma, AEB healing and strengthening needs. Pending surgical repair of hip. 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 Eats 2 meals aday at home and primarily drinks Pepsi. Rare water use. Coughs up white phlegm during visit. Noted emesis after morphine, and plans to alter pain meds. Will add Ensure for post op healing, and discussed with patient and visitor Malnutrition Assessment: Malnutrition Status: At risk for malnutrition (Comment) Context: Acute Illness Findings of the 6 clinical characteristics of malnutrition: Energy Intake: Mild decrease in energy intake (Comment) (acute with NPO) Weight Loss: No significant weight loss Body Fat Loss: No significant body fat loss Muscle Mass Loss: No significant muscle mass loss Fluid Accumulation: No significant fluid accumulation M1A1 Tank Crewman Strength: Not Performed Estimated Daily Nutrient Needs: Energy (kcal): 8376-5279 (27-32); Weight Used for Energy Requirements: Current Protein (g): 71-85 (1.5-1.8); Weight Used for Protein Requirements: Current Fluid (ml/day): 1500+; Method Used for Fluid Requirements: 1 ml/kcal Nutrition Related Findings: Thin, not malnourished appearing. Wounds: None Current Nutrition Therapies: Diet NPO Adult Oral Nutrition Supplement; Standard High Calorie/High Protein Oral Supplement Anthropometric Measures: Height: 5' 1 (154.9 cm) Current Body Weight: 104 lb 8 oz (47.4 kg) Admission Body Weight: 100 lb (45.4 kg) Usual Body Weight: 100 lb (45.4 kg) Howe Body Weight: 105 lbs; % Howe Body Weight 99.5 % BMI: 19.8 Adjusted Body Weight: ; No Adjustment BMI Categories: Normal Weight (BMI 18.5-24.9) Nutrition Diagnosis: Increased nutrient needs related to acute injury/trauma as evidenced by wounds Lab Results Component Value Date NA 135 01/09/2021 K 5.0 01/09/2021 CL 103 01/09/2021 CO2 26 01/09/2021 BUN 16 01/09/2021 CREATININE 1.38 (H) 01/09/2021 GLUCOSE 131 (H) 01/09/2021 CALCIUM 8.3 (L) 01/09/2021 LABGLOM 38 (L) 01/09/2021 GFRAA 46 (L) 01/09/2021 No results found for: LABA1C No results found for: EAG No results found for: VITD25 Nutrition Interventions: Food and/or Nutrient Delivery: Start Oral Diet, Start Oral Nutrition Supplement Nutrition Education/Counseling: No recommendation at this time Coordination of Nutrition Care: Continue to monitor while inpatient Goals: PO > 75% meals and supplements on advanced diet Nutrition Monitoring and Evaluation: Behavioral-Environmental Outcomes: None Identified Food/Nutrient Intake Outcomes: Food and Nutrient Intake, Supplement Intake Physical Signs/Symptoms Outcomes: Biochemical Data, Weight Discharge Planning: Too soon to determine Contact: [phone] * Alicia Sharma RN - 01/09/2021 9:46 AM EDT Pt has a very congested cough that is productive; pt states that when coughing the thick mucous makes her feel nauseated and she spits up . Pt medicated with PRN Phenergan as ordered with a sip of water. * Navjot Reaves RN - 01/09/2021 7:20 AM EDT Quality flow rounds held on 01/09/21 Lencho Candelario is admitted for Closed fracture of right hip with routine healing. Length of stay 1. Education: Needed Education: weight bearing status, wound care, meds, follow up,diet Do you have any questions regarding your plan of care while at the hospital? denies Planned Disposition: [] Home when able [] Swing Bed [x] ECF/SNF [] Other/TBD Barriers to Discharge: Can you afford your medications? yes Do you have transportation to follow up appointments? Drove self prior to fall Do you need any new equipment at home? denies Current equipment includes none Do you have a living will or durable power of tax associate attorney for healthcare? denies If yes do we have a copy on file? n/a Do you or your family have any questions or concerns we haven't already discussed? Denies Pt lives alone and is independent with ADL's. Pt given list of SNF and informed of local facilitiesthat take her insurance. Pt requests to contact [facility] in [place] in regards to discharge plan, she states her daughter lives outside of [place]. States PCP is Dr Son. Phuong COOK and residential mortgage underwriter present for rounding. * Maribel Estrada RN - 01/09/2021 6:[address] Lowry notified of K level. New orders received. * Narda Kumari RN - 01/08/2021 11:11 PM EDT Pt states she is allergic to codeine and feels like she is unable to breathe and having a heart attack if she takes it. This nurse asked patient if she has had morphine in the past. Pt states she is able to tolerate morphine fine. She has had 2 surgeries in the past and tolerated it just fine. * Brian Zuniga [facility] - 01/08/2021 10:16 PM EDT Pharmacy Note Renal Dose Adjustment Lencho Candelario is a 70 y.o. female. Pharmacist assessment of renally cleared medications. Recent Labs 01/08/211937 BUN 14 Recent Labs 01/08/211937 CREATININE 1.54* CrCl cannot be calculated (Unknown ideal weight.). Estimated CrCl using Howe Body Weight: 24.01 mL/min (based on IBW 47.8 kg) Height: Ht Readings from Last 1 Encounters: 01/08/21 5' 1 (1.549 m) Weight: Wt Readings from Last 1 Encounters: 01/08/21 100 lb (45.4 kg) The following medication dose has been adjusted based upon renal function per P&T Guidelines: Enoxaparin 40 mg subcutaneously once daily changed to enoxaparin 30 mg subcutaneously once daily. * Narda Kumari RN - 01/08/2021 9:00 PM EDT Pt arrives to floor via cart with her daughters. Pt is slightly drowsy from pain medication but able to answer questions appropriately. Pt is alert and oriented. Vitals and assessment completed. Pt given water at this time and notified she will be NPO at midnight. Call light in reach. Will continueto monitor. documented in this encounterImage Space Media Phone: [phone] 312-699707-30-2021 Hospital Discharge instructions* Discharge Instr - HYUN* Alicia Sharma RN - 01/09/2021 4:20 PM EDT Continuity of Care Form Patient Name: Lencho Candelario : 1950 Admit date: 01/08/2021 Discharge date: 01/14/2021 Code Status Order: Full Code Advance Directives: Advance Care Flowsheet Documentation Date/Time Healthcare Directive Type of Healthcare Directive Copy in Chart Healthcare Agent Appointed Healthcare Agent's Name Healthcare Agent's Phone Number 01/09/21 0948 No, patient does not have an advance directive for healthcare treatment Admitting Physician: Isaias Lowry MD PCP: Jaclyn Son MD Discharging Nurse: KIM Vargas Discharging Hospital Unit/Room#: 0266/0266-01 Discharging Unit Emergency Contact: Extended Emergency Contact Information Primary Emergency Contact: Cathy Bergman Mobile Relation: Child Book Shelver needed? No Secondary Emergency Contact: Isabella Perry [facility] Relation: Child Book Shelver needed? No Past Surgical History: No past surgical history on file. Immunization History: There is no immunization history on file for this patient. Active Problems: Patient Active Problem List Diagnosis Code Closed fracture of right hip with routine healing S72.001D Closed hip fracture, right, initial encounter ([facility]) S72.001A Isolation/Infection: Isolation No Isolation Patient Infection Status Infection Onset Added Last Indicated Last Indicated By Review Planned Expiration Resolved Resolved By None active Resolved COVID-19 Rule Out 01/09/21 01/09/21 01/09/21 COVID-19, Rapid (Ordered) 01/09/21 Rule-Out Test Resulted Nurse Assessment: Last Vital Signs: BP (!) 153/80 Pulse 78 Temp 98 F (36.7 C) (Oral) Resp 16 Ht 5' 1 (1.549 m) Wt 104 lb 8 oz (47.4 kg) SpO2 99% BMI 19.75 kg/m Last documented pain score (0-10 scale): Pain Level: 3 Last Weight: Wt Readings from Last 1 Encounters: 01/08/21 104 lb 8 oz (47.4 kg) Mental Status: oriented and alert IV Access: - None Nursing Mobility/ADLs: Walking Assisted Transfer Assisted Bathing Assisted Dressing Assisted Toileting Assisted Feeding Assisted Military Lawyer Assisted Med Delivery whole Wound Care Documentation and Therapy: Elimination: Continence: Bowel: Yes Bladder: Yes Urinary Catheter: Removal Date 01/11/2021 Colostomy/Ileostomy/Ileal Conduit: No Date of Last BM: 01/14/2021 Intake/Output Summary (Last 24 hours) at 01/09/2021 1618 Last data filed at 01/09/2021 1515 Gross per 24 hour Intake 554 ml Output 250 ml Net 304 ml I/O last 3 completed shifts: In: 554 [P.O.:30; I.V.:524] Out: 250 [Urine:250] Safety Concerns: History of Falls (last 30 days) and At Risk for Falls Impairments/Disabilities: None Nutrition Therapy: Current Nutrition Therapy: - Oral Diet: General Routes of Feeding: Oral Liquids: No Restrictions Daily Fluid Restriction: no Last Modified Barium Swallow with Video (Video Swallowing Test): not done Treatments at the Time of Hospital Discharge: Respiratory Treatments: Oxygen Therapy: is not on home oxygen therapy. Ventilator: - No ventilator support Rehab Therapies: Physical Therapy and Occupational Therapy Weight Bearing Status/Restrictions: 50% partial weight baring to right leg Other Medical Equipment (for information only, NOT a DME order): wheelchair, walker and hospital bed Other Treatments: Patient's personal belongings (please select all that are sent with patient): None RN SIGNATURE: CASE MANAGEMENT/SOCIAL WORK SECTION Inpatient Status Date: 01/08/21 Readmission Risk Assessment Score: Readmission Risk Risk of Unplanned Readmission: 11 Discharging to Facility/ Agency Name: [facility] Address: [address] [address] Dialysis Facility (if applicable) Name: Address: Dialysis Schedule: Phone: Fax: [facility] [employer] [address] [employer] signature: at 4:20 PM EDT PHYSICIAN SECTION Prognosis: {Prognosis:7223813927} Condition at Discharge: {MH Patient Condition:822665303} Rehab Potential (if transferring to Rehab): {Prognosis:5425354047} Recommended Labs or Other Treatments After Discharge: Physician Certification: I certify the above information and transfer of Lencho Candelario is necessary for the continuing treatment of the diagnosis listed and that she requires {Admit to Appropriate Level of Care:54327} for {GREATER/LESS:209543205} 30 days. Update Admission H&P: {CHP DME Changes in HandP:107508468} PHYSICIAN SIGNATURE: {Esignature:146726927} * Additional Instructions* Aurelio Saldana MD - 01/14/2021 Discharge Instructions Admission Date: 01/08/2021 Discharge Date: 01/14/21 Disposition: Home Activity: As tolerated Diet: General diet with nutritional supplements 3 times a day. Discharge Medication: Lencho Candelario Home Medication Instructions KAMRAN:[id number] Printed on:01/14/21611 Medication Information aluminum & magnesium hydroxide-simethicone (MAALOX) 200-200-20 MG/5ML SUSP suspension Take 30 mLs by mouth every 6 hours as needed for Indigestion atorvastatin (LIPITOR) 20 MG tablet Take 20 mg by mouth nightly budesonide-formoterol (SYMBICORT) 160-4.5 MCG/ACT AERO Inhale 2 puffs into the lungs 2 times daily docusate sodium (COLACE, DULCOLAX) 100 MG CAPS Take 100 mg by mouth daily enoxaparin (LOVENOX) 30 MG/0.3ML injection Inject 0.3 mLs into the skin daily guaiFENesin (MUCINEX) 600 MG extended release tablet Take 1 tablet by mouth 2 times daily HYDROcodone-acetaminophen (NORCO) 5-325 MG per tablet Take 1 tablet by mouth every 6 hours as needed for Pain for up to 7 days. lactobacillus (CULTURELLE) capsule Take 1 capsule by mouth daily (with breakfast) levalbuterol (XOPENEX) 1.25 MG/3ML nebulizer solution Take 3 mLs by nebulization every 4 hours as needed for Wheezing levoFLOXacin (LEVAQUIN) 250 MG tablet Take 1 tablet by mouth daily for 5 days ondansetron (ZOFRAN-ODT) 4 MG disintegrating tablet Take 1 tablet by mouth every 8 hours as needed for Nausea or Vomiting pantoprazole (PROTONIX) 40 MG tablet Take 1 tablet by mouth every morning (before breakfast) polyethylene glycol (GLYCOLAX) 17 g packet Take 17 g by mouth daily as needed for Constipation sennosides-docusate sodium (SENOKOT-S) 8.6-50 MG tablet Take 1 tablet by mouth 2 times daily sodium chloride (OCEAN, BABY AYR) 0.65 % nasal spray 2 sprays by Nasal route 4 times daily Discharge Instructions: Continue previous home medication. Butler 5/325: 1 tablet every 6 hours as needed for pain. Symbicort 160/4.5: 2 puffs every 12 hours. Rinse after use. Xopenex 1.25 mg aerosol every 4 hours as needed for SOB. Nasal oxygen at 2 l/m for SPO2 < 90%. Colace 100 mg daily. Senokot two times a day. Take Levaquin 250 mg daily x 5 days. Probiotic daily x 14 days. Labs in 1 week (CBC / BMP). Activity: As directed by Ortho. Diet: General Follow up with Ortho as directed by them at discharge. Follow Up: With your primary care physician (Jaclyn Son MD) after discharge from [facility]. documented in this [facility] Work Phone: evaluation + Plan note Future Appointments Appointment Date:01/21/2022 01:20:00 PM Scheduled Provider:Jaclyn SON MD [facility] Appointment Type: Open General Surgery [place] Evaluation + Plan note Future Appointments Appointment Date:07/29/2022 01:20:00 PM Scheduled Provider:Jcalyn SON MD Location:[facility] Appointment Type: Open Future Scheduled Tests Laboratory* Potassium Level 01/21/22 [facility] Evaluation + Plan note Future Appointments Appointment Date:07/29/2022 01:20:00 PM Scheduled Provider:Jaclyn SON MD Location:[facility] [place] Appointment Type: Open [facility] Evaluation + Plan note Future Appointments Appointment Date:08/02/2022 01:00:00 PM Scheduled Provider: Location:[facility] [place] Appointment Type:FM Medicare Wellness Initial Appointment Date:01/25/2023 01:00:00 PM Scheduled Provider:Jaclyn SON MD Location:[facility] [place] Appointment Type: Open Future Scheduled Tests Laboratory* [facility]ments Appointment Date:01/25/2023 01:00:00 PM Scheduled Provider:Jaclyn SON MD Location:[facility] [place] Appointment Type: Open Appointment Date:08/02/2023 11:00:00 AM Scheduled Provider: Location:[facility] [place] Appointment Type:FM Medicare Wellness Subsequent Future Scheduled Tests Laboratory* Potassium Level 07/29/22 [facility] [place] Evaluation + Plan note Future Appointments Appointment Date:01/25/2023 01:00:00 PM Scheduled Provider:Jaclyn SON MD Location:[facility] [place] Appointment Type:FM Open Appointment Date:08/02/2023 11:00:00 AM Scheduled Provider: Location:[facility] [place] Appointment Type:FM Medicare Wellness [facility] Future App[facility]ments Appointment Date:08/02/2023 10:40:00 AM Scheduled Provider:Jaclyn SON MD Location:[facility] [place] Appointment Type: Open Appointment Date:08/02/2023 11:00:00 AM Scheduled Provider: Location:[facility] [place] Appointment Type:FM Medicare Wellness Subsequent [facility] [place] Evaluation + Plan note Future Appointments Appointment Date:08/03/2024 11:00:00 AM Scheduled Provider: Location:[facility] [place] Appointment Type:FM Medicare Wellness Subsequent Appointment Date:08/03/2024 11:40:00 AM Scheduled Provider:Jaclyn SON MD Location:[facility] [place] Appointment Type: Open [facility] [place] Evaluation note* Diagnosis Closed fracture of right hip, initial encounter ([facility]) Accidental fall, initial encounter Postoperative anemia Anemia, unspecified Renal insufficiency Unspecified disorder of kidney and ureter documented in this encounter [employer] Phone: evaluation note* Diagnosis Closed nondisplaced intertrochanteric fracture of right femur, initial encounter ([facility]) documented in this encounter [employer] Phone: [email or web address] note* Diagnosis Closed displaced intertrochanteric fracture of right femur with routine healing Aftercare for healing traumatic fracture of hip documented in this encounter [employer] Phone: evaluation noteNo assessment information available [facility] Work Phone: Evaluation noteNo [facility]Nos[facility] Other History and physical note Author Chance Beavers [facility] March 15, 2022 11:39am Note Date/Time March 15, 2022 11 :39am [facility] [address] [place] [address] Gastroenterology H&P Signed Patient: Lencho Candelario MR#: [id number] : 1950 Acct:[id number] Age/Sex: 71 / F Adm Date: 2 Loc: Room: Type: [facility] Attending Dr: Chance Beavers MD Copies to: MD Tony Bermeo MD~ Date of Service: 03/15/2022 HISTORY & PHYSICAL: Patient's history with special attention to the cardiovascular, pulmonary systems and the current problem was reviewed with the patient immediately prior to the procedure. Present medications and doses reviewed in the EMR. Allergies and pertinent laboratory tests were also reviewedat this time in the EMR. The physical examination, as below, was then performed. Indication, assessment and HPI: 71-year-old female presents for colonoscopy and evaluation of ascending polyp Family history of GI malignancy? No PHYSICAL EXAMINATION Mouth and Pharynx : Moist mucus membranes, normal dentition Cardiac: Regular rate, regular rhythm Pulmonary: Clear to auscultation bilaterally, no wheezing Neurological: Alert and oriented x3, no focal deficits noted Abdomen: Abdomen soft, non-tender REVIEW OF SYSTEMS Constitutional: Denies malaise, fevers Cardiovascular: Denies chest pain, palpitations Respiratory: Denies shortness of breath, wheezing Gastrointestinal: Per HPI Genitourinary: Denies dysuria, polyuria Musculoskeletal: Denies joint swelling, joint stiffness Neurological: Denies numbness, tingling Integumentary: Denies rashes, skin lesions Endocrine: Denies fatigue, weight loss Written informed consent obtained from the patient. Risks (including but not limited to perforation, infection, bloating, bleeding, need for emergent surgeryand loss of life), benefits and alternatives explained and questions answered. The patient verbalized understanding. Based on history patient is an appropriate candidate for the procedure. Chance Beavers MD Documented By: Chance Beavers MD 03/15/22 1138 Signed By: <Electronically signed by Chance Beavers MD> 03/15/22 1139 [facility] Work Phone: Hismk[facility] general Narrative - Reported* Type Description Date Medical History GERD Medical History colon polyp Medical History COPD Surgical History hysterectomy Surgical History cholecystectomy Surgical History hip surgery (broken) [facility] Other Hisrsbj general Narrative - Reported* Type Description Date Medical History GERD Medical History colon polyp Medical History COPD Medical History KIDNEY DISEASE STAGE 3 Surgical History hysterectomy Surgical History cholecystectomy Surgical History hip surgery (broken) Hospitalization History SEE ABOVE [facility] Other Hospital course Narrative No data available for this section General Surgery [facility] Discharge instructions No data available for this section General Surgery [facility] Discharge instructions Additional Instructions DISCHARGE INSTRUCTIONS FOR COLONOSCOPY WHAT TO EXPECT: - You may feel full, gassy or cramping after your procedure. In some cases, this may be from a few hours to a day. Walking may help relieve the discomfort. - If you have polyp(s) removed you may note some minor bloody discharge after your first bowel movements. - You should begin to recover from anesthesia within 1 hour of the procedure, however may feel groggy for the next 24 hours. DO's AND DON'Ts: - Call your doctor right away if you have a hard abdomen, severe pain, are passing lots of bright red blood or clots. - Call your doctor if you develop any rashes, hives or difficulty breathing. - Let your doctor know if you have not had a bowel movement by 3 days after your procedure. - If you take 81 mg aspirin for your heart it is safe to resume this medication. - If you take other blood thinner medications your doctor will instruct you when these can safely be resumed. - Do NOT drive for 24 hours. - Do NOT operate machinery such as power tools, lawn mowers, snow blowers, sewing machines, etc. for 24 hours. - Avoid alcoholic beverages and drugs for allergies, nerves, or sleep. - Do NOT stay alone. Do NOT leave your child unattended. - Do NOT make important personal or business decisions or sign any legal documents. - Eat solid foods and drink liquids in smaller amounts than usual until normal appetite returns. If you should experience an upset stomach, liquids high in sugar content (soda, Star-Aid, non-acid juices) are recommended. - You can resume normal activities tomorrow. FOLLOW UP & RECOMMENDATIONS: -Follow-up with Dr. Beavers as needed -you can restart your aspirin in 72 hours - Notify the doctor if you have any problems. - Repeat colonoscopy in 1 years. - Follow up with PCP. - Office number [phone].[facility] Work Phone: Progress note No data available for this section [facility] Reason for visit NarrativePT HERE AT REQUEST OF DR WILLIS FOR EVALUATION OF POLYP THAT COULDN'T BE REMOVED -DAUGHTER ARPITA WANTED CONSULT FIRST., [facility] Other Advance Directives No Advanced Directives Records FoundLatest Code Status on File Code Status Date Activated Date Inactivated Comments Full Code 01/09/2021 7:43 PM Full Code 01/08/2021 9:24 PM 01/09/2021 7:43 PM Healthcare Agents on File Name Relationship Healthcare Agent Relationshi p Communication Isabella Perry Child Secondary Decision Maker Cathy Bergman Child Primary Decision Maker Latest Code Status on File Code Status Date Activated Date Inactivated Comments Full Code 01/09/2021 7:43 PM 01/14/2021 12:03 PM Healthcare Agents on File Name Relationship Healthcare Agent Relationshi p Communication Isabella Perry Child Secondary Decision Maker Cathy Bergman Child Primary Decision Maker Healthcare Agents on File Name Relationship Healthcare Agent Relationshi p Communication Isabella Perry Child Secondary Decision Maker Cathy Bergman Child Primary Decision Maker Healthcare Agents on File Name Relationship Healthcare Agent Relationshi p Communication Isabella Perry Child Secondary Decision Maker Cathy Bergman Child Primary Decision Maker Healthcare Agents on File Name Relationship Healthcare Agent Relationshi p Communication Isabella Quinteros Secondary Decision Maker Cathy Bergman Child Primary Decision Maker Advance Directive Response Recorded Date/ Time Advance Directives No January 05 1:39pm Advance Directive Response Recorded Date/ Time Advance Directives No January 05 12:39pm Summary Purpose Family History No Family History Records Found Relationship Condition Age at Onset Recorded Date/T stella father Malignant neoplasm of lung Unknown Chief Complaint and Reason for Visit Chief Complaint Colon Polyps Chief Complaint Colon Polyps Colon Polyps Chief Complaint Colon Polyps Colon Polyps Colon Polyps Additional Source Comments Reason for Visit (unrecogniz ed section and content) Reason Comments Fall Pt was walking in he [employer] kitchen and slipped on something on her floor landing on her right leg. Denies LOC or hitting her head Status Reason Specialty Diagnoses / Procedures Referre d By Contact Referred To Contact Diagnoses Closed hip fracture, right, initial encounter (HCC) Isaias Lowry MD [address] [place] [address] [facility] Ordered Prescriptions (unrec ognized section and content) Prescription Sig Dispensed Refills Start Date End Da te levoFLOXacin (LEVAQUIN) 250 MG tablet Take 1 tablet by mouth daily for 5 days 5 tablet 0 01/14/2021 01/19/2021 pantoprazole (PROTONIX) 40 MG tablet Take 1 tablet by mouth every morning (before breakfast) 30 tablet 3 01/15/2021 sennosides-docusate sodium (SENOKOT-S) 8.6-50 MG tablet Take 1 tablet by mouth 2 times daily 60 tablet 0 01/14/2021 polyethylene glycol (GLYCOLAX) 17 g packet Take 17 g by mouth daily as needed for Constipation 527 g 1 01/14/2021 02/13/2021 docusate sodium (COLACE, DULCOLAX) 100 MG CAPS Take 100 mg by mouth daily 30 capsule 0 01/14/2021 guaiFENesin (MUCINEX) 600 MG extended release tablet Take 1 tablet by mouth 2 times daily 60 tablet 0 01/14/2021 sodium chloride (OCEAN, BABY AYR) 0.65 % nasal spray 2 sprays by Nasal route 4 times daily 1 Bottle 0 01/14/2021 ondansetron (ZOFRAN-ODT) 4 MG disintegrating tablet Take 1 tablet by mouth every 8 hours as needed for Nausea or Vomiting 30 tablet 0 01/14/2021 lactobacillus (CULTURELLE) capsule Take 1 capsule by mouth daily (with breakfast) 30 capsule 0 01/14/2021 enoxaparin (LOVENOX) 30 MG/0.3ML injection Inject 0.3 mLs into the skin daily 10 mL 0 01/14/2021 levalbuterol (XOPENEX) 1.25 MG/3ML nebulizer solution Take 3 mLs by nebulization every 4 hours as needed for Wheezing 30 mL 0 01/14/2021 budesonide-formoterol (SYMBICORT) 160-4.5 MCG/ACT AERO Inhale 2 puffs into the lungs 2 times daily 1 Inhaler 3 01/14/2021 aluminum & magnesium hydroxide-simethicone (MAALOX) 200-200-20 MG/5ML SUSP suspension Take 30 mLs by mouth every 6 hours as needed for Indigestion 1 Bottle 0 01/14/2021 HYDROcodone-acetaminop hen (NORCO) 5-325 MG per tabletIndications:Clos ed hip fracture, right, initial encounter (HCC) Take 1 tablet by mouth every 6 hours as needed for Pain for up to 7 days. 30 tablet 0 01/13/2021 01/20/2021 Scheduled Active and Recently Administ ered Medications (unrecognized section and content) Medication Order 01/12/2021 01/13/2021 01/14/2021 budesonide-formoterol (SYMBICORT) 160-4.5 MCG/ACT inhaler 2 puff 2 puff, Inhalation, 2 TIMES DAILY, First dose on Tue01/12/21 at 0800, Rinse mouth out with water (without swallowing) after every dose. 0900 (Not Given - Provider: Natasha Yip RCP - Reason: Other - Comment: in ER)2003 (Given - Provider: Jyothi Jaimes RCP) 932 (Given - Provider: Natasha Yip RCP)2107 (Given - Provider: Brenda Rubin RCP) 09 (Due - Provider: Natasha iYp RCP)2100 (Due - Provider: Natasha Yip RCP) docusate sodium (COLACE) capsule 100 mg 100 mg, Oral, DAILY, First dose on Tue01/12/21 at 0900, Do not crush or break. 0836 (Given - Provider: Lien Gerber RN) 0854 (Not Given - Provider: Evette Mane RN - Reason: Patient/family refused) 0750 (Not Given - Provider: Alicia Sharma RN - Reason: Patient/family refused) enoxaparin (LOVENOX) injection 30 mg 30 mg, Subcutaneous, DAILY, First dose (after last modification) on Tue01/10/21 at 1900 0836 (Given - Provider: Lien Gerber RN) 0855 (Given - Provider: Evette Mane RN) 0749 (Given - Provider: Alicia Sharma RN) ferrous sulfate (IRON 325) tablet 325 mg (CANCELED) 325 mg, Oral, DAILY WITH BREAKFAST, First dose on Tue01/13/21 at 0800 0855 (Given - Provider: Evette Mane RN) guaiFENesin (MUCINEX) extended release tablet 600 mg 600 mg, Oral, 2 TIMES DAILY, First dose on Tue01/10/21 at 2100, Do not crush or break. 0836 (Given - Provider: Lien Gerber RN)1958 (Given - Provider: Negrita Garcia RN) 0855 (Given - Provider: Evette Mane RN)2031 (Given - Provider: Michelle Montero RN) 0750 (Given - Provider: Alicia Sharma RN)2100 (Due) lactobacillus (CULTURELLE) capsule 1 capsule 1 capsule, Oral, DAILY WITH BREAKFAST, First dose on Tue01/13/21 at 0800 0855 (Given - Provider: Evette Mane RN) 0750 (Given - Provider: Alicia Sharma RN) levoFLOXacin (LEVAQUIN) 250 MG/50ML infusion 250 mg 250 mg, Intravenous, EVERY 24 HOURS, First dose on Tue01/12/21 at 1830, Until Discontinued 181 (New Bag - Provider: Lien Gerber, RN)194 (Stopped - Provider: Negrita Garcia, RN) 1800 (New Bag - Provider: Lien Gerber, RN)1909 (Stopped - Provider: Lien Gerber RN) 1830 (Due) pantoprazole (PROTONIX) tablet 40 mg 40 mg, Oral, DAILY BEFORE BREAKFAST, First dose on Tue01/11/21 at 0700, Do not crush or break. 0535 (Given - Provider: Maribel Estrada RN) 0631 (Given - Provider: Negrita Garcia, KIM) 0558 (Given - Provider: Michelle Montero, KIM) sennosides-docusate sodium (SENOKOT-S) 8.6-50 MG tablet 1 tablet 1 tablet, Oral, 2 TIMES DAILY, First dose on Tue01/09/21 at 2100, Post-op 0836 (Given - Provider: Lien Gerber RN)1999 (Not Given - Provider: Negrita Garcia RN - Reason: Patient/family refused) 0853 (Not Given - Provider: Evette Mane RN - Reason: Patient/family refused)2031 (Given - Provider: Michelle Montero, RN) 0749 (Not Given - Provider: Alicia Sharma RN - Reason: Patient/family refused)2099 (Due) sodium chloride (OCEAN, BABY AYR) 0.65 % nasal spray 2 spray 2 spray, Nasal, 4 TIMES DAILY, First dose on Tue01/12/21 at 0900 0956 (Not Given - Provider: Lien Gerber RN - Reason: Patient/family refused)1301 (Not Given - Provider: Lien Gerber RN - Reason: Patient/family refused - Comment: Dr. Cárdenas aware)1637 (Not Given - Provider: Lien Gerber RN - Reason: Patient/family refused)2001 (Not Given - Provider: Negrita Garcia RN - Reason: Patient/family refused) 0854 (Not Given - Provider: Evette Mane RN - Reason: Patient/family refused)1318 (Not Given - Provider: Evette Mane RN - Reason: Patient/family refused)1639 (Not Given - Provider: Lien Gerber RN - Reason: Patient/family refused)2027 (Not Given - Provider: Michelle Montero RN - Reason: Patient/family refused) 0751 (Not Given - Provider: Alicia Sharma RN - Reason: Patient/family refused)1300 (Due)1700 (Due)2100 (Due) sodium chloride flush 0.9 % injection 5-40 mL 5-40 mL, Intravenous, EVERY 12 HOURS SCHEDULED (2 times per day), First dose on Tue01/09/21 at 2100, For Line Patency: Peripheral IV = 5 mL; Midline or Central Line = 10 mL/lumen. If following IV push medication, administer flush at same rate as the IV push. Flush volume is determined by type of infusion therapy being given. For non-viscous solutions use: Peripheral IV = 5 mL Midline or Central Line = 10 mL/lumen For viscous solutions (i.e. blood components, parenteral nutrition, contrast media, or after obtaining blood sample) use: Peripheral IV = 10 mL Midline or Central Line = 20 mL/lumen, Post-op 0928 (Given - Provider: Lien Gerber, KIM)2000 (Given - Provider: Negrita Garcia RN) 0855 (Given - Provider: Evette Mane RN)2027 (Not Given - Provider: Michelle Montero RN - Reason: Other - Comment: duplicate)2031 (Given - Provider: Michelle Montero RN) 075 (Given - Provider: Alicai Sharma RN)2100 (Due) sodium chloride flush 0.9 % injection 5-40 mL 5-40 mL, Intravenous, EVERY 12 HOURS SCHEDULED (2 times per day), First dose on Tue01/08/21 at 2145, For Line Patency: Peripheral IV = 5 mL; Midline or Central Line = 10 mL/lumen. If following IV push medication, administer flush at same rate as the IV push. Flush volume is determined by type of infusion therapy being given. For non-viscous solutions use: Peripheral IV = 5 mL Midline or Central Line = 10 mL/lumen For viscous solutions (i.e. blood components, parenteral nutrition, contrast media, or after obtaining blood sample) use: Peripheral IV = 10 mL Midline or Central Line = 20 mL/lumen 0859 (Not Given - Provider: Lien Gerber, KIM - Reason: IV Fluid Infusing)2000 (Not Given - Provider: Negrita Garcia RN - Reason: Other) 0942 (Not Given - Provider: Evette Mane RN - Reason: Other)2033 (Not Given - Provider: Michelle Montero RN - Reason: Other - Comment: IV flushed per order, this is duplicate) 0756 (Not Given - Provider: Alicia Sharma RN - Reason: Other)2099 (Due - Provider: Maribel Estrada RN) PRN Medication Order 01/12/2021 01/13/2021 01/14/2021 0.9 % sodium chloride infusion 25 mL, Intravenous, at 100 mL/hr, PRN, If patient receiving piggyback infusions without ordered maintenance IV fluids or with frequent/long duration piggyback infusions, Starting on Tue01/09/21 at 1943, Administer at the same rate as the piggyback being infused., Post-op 0.9 % sodium chloride infusion Intravenous, at 75 mL/hr, Administer over 10 Minutes, PRN, blood administration, Starting on 01/10/21 at 0548, For 1 dose, For use in priming line prior to transfusion (prime via gravity) and flush line post transfusion ONLY. Discontinue once line has been cleared of remaining blood product. 0.9 % sodium chloride infusion 25 mL, Intravenous, at 100 mL/hr, PRN, If patient receiving piggyback infusions without ordered maintenance IV fluids or with frequent/long duration piggyback infusions, Starting on Luz Elena 01/08/21 at 2124, Administer at the same rate as the piggyback being infused. acetaminophen (TYLENOL) suppository 650 mg(Linked Group 1) 650 mg, Rectal, EVERY 6 HOURS PRN, Pain Mild (1-3), Fever, For temp greater than 100.4 F (38 C), Starting on Luz Elena 01/08/21 at 2124, Administer if oral route cannot be used. acetaminophen (TYLENOL) tablet 650 mg(Linked Group 1) 650 mg, Oral, EVERY 6 HOURS PRN, Pain Mild (1-3), Fever, For temp greater than 100.4 F (38 C), Starting on Luz Elena 01/08/21 at 2124, Maximum dose of acetaminophen is 4000 mg from all sources in 24 hours. aluminum & magnesium hydroxide-simethicone (MAALOX) 200-200-20 MG/5ML suspension 30 mL 30 mL, Oral, EVERY 6 HOURS PRN, Indigestion, Starting on 01/10/21 at 1117 HYDROcodone-acetaminophen (NORCO) 5-325 MG per tablet 1 tablet 1 tablet, Oral, EVERY 4 HOURS PRN, Pain Moderate (4-6), Pain Severe (7-10), Starting on 01/10/21 at 1113, Maximum dose of acetaminophen is 4000 mg from all sources in 24 hours. levalbuterol (XOPENEX) nebulizer solution 1.25 mg 1.25 mg, Nebulization, EVERY 4 HOURS PRN, Wheezing, Starting on 01/10/21 at 2100 2003 (Given - Provider: Jyothi Jiames RCP) magnesium hydroxide (MILK OF MAGNESIA) 400 MG/5ML suspension 30 mL 30 mL, Oral, DAILY PRN, Constipation, Starting on Tue01/09/21 at 1943, First line therapy for constipation., Post-op metoclopramide (REGLAN) injection 5 mg 5 mg, Intravenous, EVERY 6 HOURS PRN, Nausea, Starting on 01/10/21 at 1609 0535 (Given - Provider: Maribel Etsrada RN) 0857 (Given - Provider: Evette Mane RN) morphine (PF) injection 2 mg 2 mg, Intravenous, EVERY 4 HOURS PRN, Pain Moderate (4-6), Pain Severe (7-10), Starting on Luz Elena 01/08/21 at 2124, If oral and IV narcotics ordered, use oral first and only use IV if oral is ineffective or cannot take oral. Do Not give oral and IV within 1 hour of each other unless specifically ordered. ondansetron (ZOFRAN) injection 4 mg(Linked Group 2) 4 mg, Intravenous, EVERY 4 HOURS PRN, Nausea, Vomiting, Starting on Tue01/09/21 at 0645, Administer if oral route cannot be used. ondansetron (ZOFRAN-ODT) disintegrating tablet 4 mg(Linked Group 2) 4 mg, Oral, EVERY 8 HOURS PRN, Nausea, Vomiting, Starting on Tue01/09/21 at 0645 oxyCODONE-acetaminophen (PERCOCET) 5-325 MG per tablet 1 tablet 1 tablet, Oral, EVERY 4 HOURS PRN, Pain Moderate (4-6), Pain Severe (7-10), Starting on Tue01/09/21 at 0632, Maximum dose of acetaminophen is 4000 mg from all sources in 24 hours. polyethylene glycol (GLYCOLAX) packet 17 g 17 g, Oral, DAILY PRN, Constipation, Starting on Tue01/08/21 at 2124, First line therapy for constipation promethazine (PHENERGAN) tablet 25 mg 25 mg, Oral, EVERY 6 HOURS PRN, Nausea, Starting on Tue01/09/21 at 0656 sodium chloride flush 0.9 % injection 5-40 mL 5-40 mL, Intravenous, PRN, Line Care, Starting on Tue01/09/21 at 1943, After every IV line use, Post-op 1816 (Given - Provider: Lien Gerber, KIM)2000 (Given - Provider: Negrita Garcia RN) 1800 (Given - Provider: Lien Gerber RN) sodium chloride flush 0.9 % injection 5-40 mL 5-40 mL, Intravenous, PRN, Line Care, After every IV line use, Starting on Tue01/08/21 at 2124, For Line Patency: Peripheral IV = 5 mL; Midline or Central Line = 10 mL/lumen. If following IV push medication, administer flush at same rate as the IV push. Flush volume is determined by type of infusion therapy being given. For non-viscous solutions use: Peripheral IV = 5 mL Midline or Central Line = 10 mL/lumen For viscous solutions (i.e. blood components, parenteral nutrition, contrast media, or after obtaining blood sample) use: Peripheral IV = 10 mL Midline or Central Line = 20 mL/lumen Linked Groups Order Group 1: acetaminophen (TYLENOL) tablet 650 mgJump to med 650 mg, Oral, EVERY 6 HOURS PRN, Pain Mild (1-3), Fever, For temp greater than 100.4 F (38 C), Starting on Tue01/08/21 at 2124
Maximum dose of acetaminophen is 4000 mg from all sources in 24 hours.
Or acetaminophen (TYLENOL) suppository 650 mgJump to med 650 mg, Rectal, EVERY 6 HOURS PRN, Pain Mild (1-3), Fever, For temp greater than 100.4 F (38 C), Starting on Luz Elena 01/08/21 at 2124
Administer if oral route cannot be used.
Group 2: ondansetron (ZOFRAN-ODT) disintegrating tablet 4 mgJump to med 4 mg, Oral, EVERY 8 HOURS PRN, Nausea, Vomiting, Starting on Tue01/09/21 at 0645 Or ondansetron (ZOFRAN) injection 4 mgJump to med 4 mg, Intravenous, EVERY 4 HOURS PRN, Nausea, Vomiting, Starting on Tue01/09/21 at 0645
Administer if oral route cannot be used.
INFORMATION SOURCE (unrecogn ized section and content) DATE CREATED AUTHOR 04/05/2021 Bonnie Kitteryjeffery jones DATE CREATED AUTHOR AUTHOR'S ORGANIZ ATION 04/26/2022 [facility] DATE CREATED AUTHOR AUTHOR'S ORGANIZ ATION 09/12/2022 [facility] DATE CREATED AUTHOR AUTHOR'S ORGANIZ ATION 10/30/2023 [facility] Care Team (unrecognized sect ion and content) Team Status: Inactive Member Role Status Dates Darryl Soto DO Attending Provider Active Tony Son MD Primary Care Provider Active Team Status: Active Member Role Status Dates Tony Son MD Primary Care Provider Active Team Status: Inactive Member Role Status Dates Tony Son MD Primary Care Provider Active Chance Beavers MD Attending Provider Active Goals (unrecognized section and content) Goals may be documented in a n alternate section FOR RECORDS PERTAINING TO PATIENTS WHO ARE OR HAVE BEEN ENROLLED IN A CHEMICAL DEPENDENCY/SUBSTANCEABUSE PROGRAM, SOME INFORMATION MAY BE OMITTED. This clinical summary was aggregated from multiple sources. Caution should be exercised in using it in the provision of clinical care. This summary normalizes information from multiple sources, and as a consequence, information in this document may materially change the coding, format and clinical context of patient data. In addition, data may be omitted in some cases. CLINICAL DECISIONS SHOULD BE BASED ON THE PRIMARY CLINICAL RECORDS. [facility] [employer] [facility] provides no warranty or guarantee of the accuracy or completeness of information in this document.
[2024-02-10 12:55] LABS: Bilirubin Urine NEGATIVE (NEGATIVE); Blood Urine SMALL (NEGATIVE); Clarity Urine CLEAR (CLEAR); Color Urine LT. YELLOW (YELLOW); Glucose Urine UA NEGATIVE (NEGATIVE); Ketones Urine NEGATIVE (NEGATIVE); Leukocyte Esterase Urine NEGATIVE (NEGATIVE); Nitrite Urine NEGATIVE (NEGATIVE); Protein Urine 100 mg/dL (NEG/TRACE); Specific Gravity Urine 1.025 (1.005-1.025); Urobilinogen Urine 0.2 EU/dL (0.2-1.0)
[2024-02-10 13:22] LABS: Creatinine Urine Random 110.81 mg/dL (20.00-300.00); Protein Creatinine Ratio Urine 1.09; Total Protein Urine Random 120.6 mg/dL (<=11.9)
[2024-02-10 13:25] LABS: Albumin Level 3.1 g/dL (3.4-5.0); Anion Gap 13.9; BUN Creatinine Ratio 14.4; Calcium 9.2 mg/dL (8.5-10.1); Carbon Dioxide 27.5 mmol/L (21.0-32.0); Chloride 102 mmol/L (98-107); Estimated GFR (African America 32 (>=60); Estimated GFR (Non-African Ame 26 (>=60); Glucose 104 mg/dL (74-106); Potassium 5.4 mmol/L (3.5-5.1); Sodium 138 mmol/L (136-145)
== END 2024-02-10 12:30 | disposition home or self-care (01) ==
LOC: LAB 12:31
DX: I12.9 Hypertensive chronic kidney disease with stage 1 through stage 4 chronic kidney disease, or unspecified chronic kidney disease (principal)
CPT/HCPCS: 36415; 80069; 81003; 82570; 84156

== ENCOUNTER 2024-08-20 13:16 | Outpatient (OUT) | payer MEDICARE, MEDICAID, SELFPAY ==
[2024-08-20 13:48] LABS: Albumin Level 3.4 g/dL (3.4-5.0); Anion Gap 15.5; BUN Creatinine Ratio 15.1; Calcium 9.4 mg/dL (8.5-10.1); Carbon Dioxide 26.3 mmol/L (21.0-32.0); Chloride 103 mmol/L (98-107); Estimated GFR (African America 32 (>=60 mL/min/1.73m^2); Estimated GFR (Non-African Ame 27 (>=60 mL/min/1.73m^2); Glucose 96 mg/dL (74-106); Magnesium 1.8 mg/dL (1.8-2.4); Phosphorus 4.2 mg/dL (2.6-4.7); Potassium 4.8 mmol/L (3.5-5.1); Sodium 140 mmol/L (136-145)
[2024-08-20 13:55] LABS: Hematocrit 35.2 % (36.0-48.0); Hemoglobin 10.8 g/dL (12.0-16.0)
[2024-08-20 14:28] LABS: Protein Creatinine Ratio Urine 1.82; Total Protein Urine Random 63.9 mg/dL (<=11.9)
== END 2024-08-20 13:17 | disposition home or self-care (01) ==
LOC: LAB 13:16
PROVIDERS: PCP Family Medicine
DX: I12.9 Hypertensive chronic kidney disease with stage 1 through stage 4 chronic kidney disease, or unspecified chronic kidney disease (principal); N18.4 Chronic kidney disease, stage 4 (severe)
CPT/HCPCS: 36415; 80069; 82570; 83735; 84156; 85014; 85018

== ENCOUNTER 2025-02-12 13:08 | Outpatient (OUT) | payer MEDICARE, MEDICAID, SELFPAY ==
--- OUTSIDE RECORDS SUMMARY | 2014-09-23 20:00 | XMS_ITS | Continuity of Care Document ---
Author Organization [facility] Address [address] [place] [id number] Phone Care Team Providers Care [employer] Worker Name Role Phone Unavailable Unavailable Unavailable Procedures Procedure Date EKG INTERP EKG INTERP EKG INTERP EKG INTERP Advance Directives Directive Yes / No Effective Date File Name No Information Encounters Encounter Description Practice Location Reason(s) For Visit Diagnoses Date Provider Providers [facility]ied on [facility] [address] [place] [address], [id number], tel:[phone] [facility] No Information No Information Referring Provider: Alex Duncan, [address] [place] [address], [id number]. tel:[phone] [facility], [address] [place] [address], [id number], [place] tel:[phone] [facility] No Information No Information Referring Provider: Alex Duncan, [address] [place] [address], [id number]. tel:[phone] [facility], [address] [place] [address], [id number], [place] tel:[phone] [facility] No Information No Information Referring Provider: Alex Duncan, [address] [place] [address], [id number]. tel:[phone] [facility], [address] [place] [address], [id number], tel:[phone] [facility] No Information No Information Referring Provider: Alex Duncan, [facility], [place], [address]. tel:[phone] Family History Family Member Type Diagnosis Age At Onset No Information Payers Payer name Insurance type Covered constitution party ID Authoriza tion(s) Medicare Primary [id number] [employer] [place] [id number] [employer] CI [id number] Social History Type Description Quantity Date Captured Comments Sex Female Smoking Status No Information Chief Complaint And Reason For Visit No Information Reason For Referral Reason For Referral No Information History Of Present Illness Encounter Date Complaint History Of Prese nt Illness No Information Functional Status Date Functional Assessmen t No Information Instructions Date Instruction Additional Infor mation No Information Assessments Type Assessment Date No Information Patient Care Teams Name Effective Dates (start - stop) Status Members No Information
--- OUTSIDE RECORDS SUMMARY | 2025-02-12 13:11 | XMS_ITS | Continuity of Care Document ---
Author Organization [facility] Address [address] [place] [id number] Phone [phone] Care Team Providers Care Restaurant Line Cook Name Role Phone Carlyle Jacinto MD Care Team Information Rece iver [phone] Problems Active Problems Provider Date Body mass index less than 20 Ons et: 01/29/2021 Closed intertrochanteric fracture Onset: 01/29/2021 H/O: hip fracture Onset: 021 Chronic kidney disease stage 3A Onset: 05/30/2020 Mixed hyperlipidemia Onset: 05/13 Nicotine dependence Onset: 05/30 Benign essential hypertension On set: 03/30/2020 Resolved Problems Patient encounter status Onset: 06/03/2020 Resolved: 06/03/2020 Family History Date Family Member(s) Observation Comments Father due to Lung Cancer () Mother due to Unknown Caus es () Social History Type Date Description Comments Sex Female Occupation Retired ETOH Use Denies alcohol use Tobacco Use Start: Unknown Patient is a cur rent smoker, smokes every day Recreational Drug Use Denies Drug Use Smoking Status Reviewed: 09/03/24 Patient is a current smoker, smokes every day Results Test Acquired Date Facility Test Result H/L Range Note .Magnesium 08/20/2024 [facility] [phone] .Magnesium 1.8 .Renal Panel 08/20/2024 [facility] .Albumin 3.4 .Calcium 9.4 .Carbon Dioxide 26.3 .Chloride 103 .Phosphorus 4.2 .Potassium 4.8 .Sodium 140 .BUN 28.0 .GFR 27 High 20 .Creatinine-LC 1.85 .Urine Protein/Creat. Random 08/20/2024 [place] [id number] 40 .Urine Protein Random 63.9 .Urine Creatinine Random 35.20 .Urine Prot/Creat Ratio 1.82 .Hemoglobin And Hematocrit 08/20/2024 [place] [id number] 40 .Hemoglobin Blood 10.8 .Hematocrit 35.2 .Renal Panel 02/10/2024 [place] [id number] 40 .Albumin 3.1 .Calcium 9.2 .Carbon Dioxide 27.5 .Chloride 102 .Phosphorus 4.0 .Potassium 5.4 .Sodium 138 .BUN 27.0 .GFR 26 High 20 .Creatinine-LC 1.88 .Ua 02/10/2024 [place] [id number] Ua Appearance CLEAR Ua Bilirubin NEGATIVE Ua Blood SMALL Ua Color LT. YELLOW Ua Glucose NEGATIVE Ua Ketones NEGATIVE Ua Leuko NEGATIVE Ua Nitrite NEGATIVE Ua PH Test Strip 6.0 Ua Protein 100 Ua Source CLEAN CATCH Ua Specific [place] 1.025 Ua Urobilinogen 0.2 .Urine Protein/Creat. Random 02/10/2024 [place] [id number] 40 .Urine Protein Random 120.6 .Urine Creatinine Random 110.81 .Urine Prot/Creat Ratio 1.09 .Renal Panel 10/18/2023 [place] [id number] 40 .Albumin 3.1 .Calcium 8.8 .Carbon Dioxide 27.9 .Chloride 102 .Phosphorus 4.6 .Potassium 5.0 .Sodium 137 .BUN 27.0 .GFR 27 High 20 .Creatinine-LC 1.84 .Urine Protein/Creat. Random 10/18/2023 [place] [id number] 40 .Urine Protein Random 57.9 .Urine Creatinine Random 16.28 .Urine Prot/Creat Ratio 3.56 .Renal Panel 08/02/2023 [place] [id number] 40 .Albumin 3.7 .Calcium 9.4 .Carbon Dioxide 28 .Chloride 108 .Potassium 5.1 .Sodium 140 .BUN 27 .GFR 27 High 20 .Creatinine-LC 1.9 .Renal Panel 06/07/2023 [place] [phone] 40 .Albumin 3.1 .Calcium 9.4 .Carbon Dioxide 27.6 .Chloride 106 .Phosphorus 3.6 .Potassium 4.7 .Sodium 139 .BUN 30.0 .GFR 29 High 20 .Creatinine-LC 1.71 .Magnesium 06/07/2023 [facility] [phone] .Magnesium 1.9 .Urine Protein/Creat. Random 03/21/[address] [address] .Urine Protein Random 57.3 .Urine Creatinine Random 30.49 .Urine Prot/Creat Ratio 1.88 .Renal Panel 03/21/[address] [address] [phone] .Albumin 3.1 .Calcium 8.5 .Carbon Dioxide 27.2 .Chloride 101 .Phosphorus 4.6 .Potassium 5.5 .Sodium 132 .BUN 23 .GFR 29 High 20 .Creatinine-LC 1.72 .Ua 03/21/[address] [address] Ua Appearance CLEAR Ua Bilirubin - Ua Blood SMALL Ua Color LT YELLOW Ua Glucose - Ua Ketones - Ua Leuko - Ua Nitrite - Ua PH Test Strip 6.0 Ua Protein 30 Ua Source CLEAN CATCH Ua Specific [place] 1.010 Ua Urobilinogen 0.2 .Renal Panel 12/13/2022 [facility] (000)-000-00 00 .Albumin 3.2 .Calcium 8.8 .Carbon Dioxide 28.9 .Chloride 102 .Phosphorus 3.7 .Potassium 4.8 .Sodium 136 .BUN 25.0 .GFR 25 .Creatinine-LC 1.96 .Urine Protein/Creat. Random 11/30/[address] [address] [phone] .Urine Protein Random 180.1 .Urine Creatinine Random 110.14 .Urine Prot/Creat Ratio 1.64 .Ua 11/30/[address] [address] Ua Appearance SL CLOUDY Ua Bilirubin - Ua Blood MODERATE Ua Color LIGHT YELLOW Ua Glucose - Ua Ketones - Ua Leuko - Ua Nitrite - Ua PH Test Strip 6.0 Ua Protein >=300 Ua Source CLEAN CATCH Ua Specific [place] 1.025 Ua Urobilinogen 0.2 .Renal Panel 11/30/2022 [facility] [address] [place] [address] [phone] .Albumin 3.0 .Calcium 9.2 .Carbon Dioxide 28.7 .Chloride 103 .Phosphorus 4.0 .Potassium 4.0 .Sodium 139 .BUN 24 .GFR 26 High 20 .Creatinine-LC 1.91 .Potassium 09/08/2022 [place] [phone] .Potassium 4.4 .Magnesium 09/08/2022 [place] [phone] .Magnesium 1.6 .Renal Panel 09/08/2022 [place] [phone] .Albumin 3.4 .Calcium 9.2 .Carbon Dioxide 28.1 .Chloride 108 .Phosphorus 3.3 .Sodium 144 .BUN 21 .GFR 29 High 20 .Creatinine-LC 1.70 .Renal Panel 08/30/2022 [facility] (000)- 00 .Calcium 9.3 .Carbon Dioxide 26 .Chloride 105 .Potassium 6.0 .Sodium 136 .BUN 27 .GFR 34 .Creatinine-LC 1.5 .Renal Panel 11/10/2021 [facility] (000)-000- 00 .Albumin 3.3 .Calcium 9.1 .Carbon Dioxide 28.4 .Chloride 96 .Phosphorus 4.2 .Potassium 5.3 .Sodium 131 .BUN 19 .GFR 32 .GFR 32 .Creatinine-LC 1.58 .Ua 11/10/2021 [facility] (000)-- 00 Ua Appearance clear Ua Bilirubin - Ua Blood moderate Ua Glucose - Ua Ketones - Ua Nitrite - Ua PH Test Strip 6.0 Ua Protein 30 Ua Specific [place] 1.010 .Urine Protein/Creat. Random 11/10/2021 [facility] (000)-- 00 .Urine Protein Random 44.2 .Urine Creatinine Random 50.88 .Urine Prot/Creat Ratio 0.87 .Renal Panel 06/30/2021 [facility] [address] [place] [address] .Albumin 3.9 .Calcium 9.8 .Carbon Dioxide 27 .Chloride 97 .Phosphorus 4.1 .Potassium 4.5 .Sodium 135 .BUN 19 .GFR 32 High 20 .Creatinine-LC 1.6 .Urinalysis-Ro utine 06/30/[address] [address] [phone] Ua Specific [place] >=1.030 Ua PH Test Strip 5.5 Ua Color yellow Ua Appearance sl cloudy Ua WBC 6-15 Ua Protein 2+ Ua Glucose neg Ua Ketones neg Ua Bilirubin neg Ua Urobilinogen 0.2 Ua Nitrite neg Ua Occult Blood 2+ .Free Light Chains 06/30/[address] [address] [place] Light Chains QN Ser 85.4 Lambda Light Chain QN Ser 35.0 .Urine Protein/Creat. Random 06/30/[address] [address] .Urine Protein Random 159.0 .Urine Creatinine Random 292.4 .Urine Prot/Creat Ratio 543.80 .Complement C4 06/30/[address] [address] .Complement C4 24 .Hematocrit 06/30/[address] [address] .Hematocrit 37.1 .Ipth 06/30/[address] [address] [phone] .Ipth 30 .Anti-Myeloper oxidase Abs 06/30/[address] [address] .Anti-Myeloperox idase Abs <9.0 .Hemoglobin Blood 06/30/[address] [address] [phone] .Hemoglobin Blood 12.3 .Complement C3 06/30/[address] [address] .Complement C3 120 .Anti-Proteina se-3 AB 06/30/2021 [facility] [address] [place] [address] .Anti-Proteinase -3 AB <3.5 .Renal Panel 06/09/2021 [facility] [address] [place] [address] .Albumin 3.7 .Calcium 9.5 .Carbon Dioxide 28 .Chloride 93 .Potassium 4.7 .Sodium 132 .BUN 27 .GFR 32 High 20 .Creatinine-LC 1.6 .BMP W/Egfr-LC 04/21/2021 [facility] (000)-000-00 00 .Sodium 134 .Potassium 5.3 .Chloride 100 .Carbon Dioxide 26 .GFR 30 .Creatinine-LC 1.7 .BUN 21 Chemistry 02/07/2021 N2N/[facility]D Imports eGFR 49 mL/min/1.73m 2 Low >=59mL/mi n/1.73 m2 eGFR Aa 59 mL/min/1.73m 2 >=59mL/mi n/1.73 m2 Chemistry 02/07/2021 N2N/[facility] Imports BUN 12 mg/dL 5-21 Creatinine 1.1 mg/dL 0.5-1.3 Sodium Lvl 130 mmol/L Low 135-145 Potassium Lvl 3.9 mmol/L 3.5-5.3 Chloride 99 mmol/L Low 101-111 Co2 25 mmol/L 21-31 Agap 10 mEq/L 6-16 BUN/Creat Ratio 11 1 10-20 Calcium Lvl 8.7 mg/dL Low 8.9-11.1 Glucose Lvl 104 mg/dL 55-199 Hematology 02/07/2021 N2N/CCD Imports Neutro Auto 65.0 % 36.0-75.0 Lymph Auto 25.0 % 14.0-50.0 Keith Auto 6.7 % 4.0-14.0 Eos Auto 2.5 % 0.0-8.0 Basophil Auto 0.8 % 0.0-2.0 Neutro Absolute 4.5 E9/L 2.0-7.5 Lymph Absolute 1.7 E9/L 1.0-4.0 Keith Absolute 0.5 E9/L 0.2-1.0 Eos Absolute 0.2 E9/L 0.0-0.5 Basophil Absolute 0.1 E9/L 0.0-0.2 Hematology 02/07/2021 N2N/CCD Imports WBC 7.0 E9/L 4.0-11.0 RBC 3.0 E12/L Low 4.3-5.9 Hgb 8.8 g/dL Low 12.0-16.0 Hct 25.4 % Low 34.0-46.0 RDW 16.7 % High 10.9-14.2 MCH 29.0 pg 27.0-34.0 MCHC 34.5 g/dL 31.4-36.0 MCV 84.1 fL 80.0-100. 0 MPV 8.1 fL 6.4-10.8 Platelet 281.0 E9/L 150.0-500 .0 Chemistry 02/06/2021 N2N/CCD Imports Sodium Lvl 127 mmol/L Low 135-145 Chemistry 02/06/2021 N2N/CCD Imports eGFR 55 mL/min/1.73m 2 Low >=59mL/mi n/1.73 m2 eGFR Aa >60 mL/min/1.73m 2 >=59mL/mi n/1.73 m2 Chemistry 02/06/2021 N2N/CCD Imports BUN 14 mg/dL 5-21 Creatinine 1.0 mg/dL 0.5-1.3 Sodium Lvl 128 mmol/L Low 135-145 Potassium Lvl 4.2 mmol/L 3.5-5.3 Chloride 97 mmol/L Low 101-111 Co2 27 mmol/L 21-31 Agap 8 mEq/L 6-16 BUN/Creat Ratio 14 1 10-20 Calcium Lvl 8.6 mg/dL Low 8.9-11.1 Glucose Lvl 97 mg/dL 55-199 Chemistry 02/05/2021 N2N/CCD Imports Potassium Lvl 4.3 mmol/L 3.5-5.3 Chloride 90 mmol/L Low 101-111 Co2 25 mmol/L 21-31 Agap 11 mEq/L 6-16 Hematology 02/05/2021 N2N/CCD Imports Hgb 8.8 g/dL Low 12.0-16.0 Hct 26.4 % Low 34.0-46.0 Hematology 02/04/2021 N2N/CCD Imports WBC 7.7 E9/L 4.0-11.0 RBC 3.0 E12/L Low 4.3-5.9 Hgb 8.4 g/dL Low 12.0-16.0 Hct 24.8 % Low 34.0-46.0 RDW 16.2 % High 10.9-14.2 MCH 27.5 pg 27.0-34.0 MCHC 33.8 g/dL 31.4-36.0 MCV 81.5 fL 80.0-100. 0 MPV 8.1 fL 6.4-10.8 Platelet 241.0 E9/L 150.0-500 .0 Chemistry 02/04/2021 N2N/CCD Imports BUN 18 mg/dL 5-21 Creatinine 1.0 mg/dL 0.5-1.3 BUN/Creat Ratio 18 1 10-20 Calcium Lvl 8.2 mg/dL Low 8.9-11.1 Glucose Lvl 92 mg/dL 55-199 eGFR 55 mL/min/1.73m 2 Low >=59mL/mi n/1.73 m2 eGFR Aa >60 mL/min/1.73m 2 >=59mL/mi n/1.73 m2 Hematology 02/04/2021 N2N/CCD Imports Neutro Auto 63.3 % 36.0-75.0 Lymph Auto 25.1 % 14.0-50.0 Keith Auto 8.6 % 4.0-14.0 Eos Auto 2.1 % 0.0-8.0 Basophil Auto 0.9 % 0.0-2.0 Neutro Absolute 4.9 E9/L 2.0-7.5 Lymph Absolute 1.9 E9/L 1.0-4.0 Keith Absolute 0.7 E9/L 0.2-1.0 Eos Absolute 0.2 E9/L 0.0-0.5 Basophil Absolute 0.1 E9/L 0.0-0.2 Hematology 02/03/2021 N2N/CCD Imports WBC 7.4 E9/L 4.0-11.0 RBC 3.5 E12/L Low 4.3-5.9 RDW 16.1 % High 10.9-14.2 MCH 27.5 pg 27.0-34.0 MCHC 33.9 g/dL 31.4-36.0 MCV 80.9 fL 80.0-100. 0 MPV 8.9 fL 6.4-10.8 Platelet 290.0 E9/L 150.0-500 .0 Chemistry 02/03/2021 N2N/CCD Imports Magnesium 1.5 mg/dL 1.3-2.4 Hematology 02/03/2021 N2N/CCD Imports Neutro Auto 72.2 % 36.0-75.0 Lymph Auto 16.3 % 14.0-50.0 Keith Auto 10.7 % 4.0-14.0 Eos Auto 0.5 % 0.0-8.0 Basophil Auto 0.3 % 0.0-2.0 Neutro Absolute 5.4 E9/L 2.0-7.5 Lymph Absolute 1.2 E9/L 1.0-4.0 Keith Absolute 0.8 E9/L 0.2-1.0 Eos Absolute 0.0 E9/L 0.0-0.5 Basophil Absolute 0.0 E9/L 0.0-0.2 Chemistry 02/02/2021 N2N/CCD Imports U Osmolality 121 mOsm/kg 50-1400 Chemistry 02/02/2021 N2N/CCD Imports U Sodium 15 mmol/L Urinalysis 02/02/2021 N2N/CCD Imports Ua Spec Desc 0.2 Eu/dL Ua Color 0-5 /HPF Yellow Ua Clarity 0-3 /HPF Clear Ua Spec Grav 3-4 /HPF 1.005-1.0 30 Chemistry 02/02/2021 N2N/CCD Imports Osmolality 235 mOsm/kg Low 275-295 TSH 2.90 mcIU/mL 0.34-5.60 Reference Laboratory Testing 02/02/2021 N2N/CCD Imports Cortisol 15.2 g/dL 1 Chemistry 02/02/2021 N2N/CCD Imports Alt 16 [iU]/d 6-46 Ast 18 [iU]/d 5-43 Albumin Lvl 3.2 g/dL Low 3.3-5.0 Alk Phos 125 [iU]/d High 21-98 Bili Total 0.8 mg/dL 0.0-1.1 Total Protein 6.6 g/dL 6.0-7.8 Globulin 3.4 g/dL 1.4-4.0 A/G Ratio 0.9 Low 1.1-2.2 Bili Direct 0.2 mg/dL 0.1-0.4 Bili Indirect 0.6 mg/dL 0.1-0.9 Chemistry 02/01/2021 N2N/CCD Imports Troponin 4.80 pg/mL Low 10.10-27. 10 1 Result Comment: Truong isol AM 6.2 - 19.4 Encounters Type Date Location Provider Dx Diagnosis Office Visit 09/03/2024 1:00p [facility] NYDIA Carreno I12.9 Hypertensive chronic kidney disease w stg 1-4/unsp chr kdny N18.4 Chronic kidney disea se, stage 4 (severe) I10 Essential (primary) hypertension E87.5 Hyperkalemia Office Visit 02/22/2024 2:20p [facility] NYDIA Bojorquez I12.9 Hypertensive chronic kidney disease w stg 1-4/unsp chr kdny E87.5 Hyperkalemia N18.4 Chronic kidney disea se, stage 4 (severe) Office Visit 10/27/2023 1:20p [facility] Franklin soria MD I12.9 Hypertensive chronic kidney disease w stg 1-4/unsp chr kdny E87.5 Hyperkalemia N18.4 Chronic kidney disea se, stage 4 (severe) Office Visit 06/22/2023 2:30p [facility] Sonia Whitney I12.9 Hypertensive chronic kidney disease w stg 1-4/unsp chr kdny E87.1 Hypo-osmolality and hyponatremia N18.32 Chronic kidney disea se, stage 3b E87.5 Hyperkalemia R80.9 Proteinuria, unspeci fied Office Visit 03/31/2023 1:00p [facility] Franklin soria MD I12.9 Hypertensive chronic kidney disease w stg 1-4/unsp chr kdny E87.1 Hypo-osmolality and hyponatremia N18.32 Chronic kidney disea se, stage 3b E87.5 Hyperkalemia R80.9 Proteinuria, unspeci fied Office Visit 09/02/2022 3:00p [facility] Sonia Whitney E87.1 Hypo-osmolality and hyponatremia I10 Essential (primary) hypertension N18.32 Chronic kidney disea se, stage 3b E87.5 Hyperkalemia Office Visit 11/17/2021 9:40a [facility] Franklin soria MD E87.1 Hypo-osmolality and hyponatremia I10 Essential (primary) hypertension N18.32 Chronic kidney disea se, stage 3b Office Visit 07/21/2021 2:40p [facility] Franklin soria MD E87.1 Hypo-osmolality and hyponatremia I10 Essential (primary) hypertension N18.32 Chronic kidney disea se, stage 3b Office Visit 06/18/2021 11:40a [facility] Franklin aguilar MD E87.1 Hypo-osmolality and hyponatremia I10 Essential (primary) hypertension N17.9 Acute kidney failure , unspecified Assessments Date Code Description Provider 09/03/2024 I12.9 Hypertensive chr onic kidney disease with stage 1 through stage 4 chronic kidney disease, or unspecified chronic kidney disease NYDIA Carreno 09/03/2024 N18.4 Chronic kidney disease, stag e 4 (severe) NYDIA Carreno 09/03/2024 I10 Essential (primary) hyperten dami NYDIA Carreno 09/03/2024 E87.5 Hyperkalemia Paulina noble, RADHA-C 02/22/2024 I12.9 Hypertensive chr onic kidney disease with stage 1 through stage 4 chronic kidney disease, or unspecified chronic kidney disease NYDIA Carreno 02/22/2024 E87.5 Hyperkalemia Paulina noble, RADHA-C 02/22/2024 N18.4 Chronic kidney disease, stag e 4 (severe) NYDIA Carreno 10/27/2023 I12.9 Hypertensive chr onic kidney disease with stage 1 through stage 4 chronic kidney disease, or unspecified chronic kidney disease Franklin Jama MD 10/27/2023 E87.5 Hyperkalemia Sin Moreland 10/27/2023 N18.4 Chronic kidney disease, stag e 4 (severe) Franklin Jama MD 06/22/2023 I12.9 Hypertensive chr onic kidney disease with stage 1 through stage 4 chronic kidney disease, or unspecified chronic kidney disease Sonia Whitney 06/22/2023 E87.1 Hypo-osmolality and hyponatr emia Devonte, Sonia 06/22/2023 N18.32 Chronic kidney disease, stag e 3b Devonte, Sonia 06/22/2023 E87.5 Hyperkalemia Devonte, Sonia 06/22/2023 R80.9 Proteinuria, unspecified Jam franny, Sonia 03/31/2023 I12.9 Hypertensive chr onic kidney disease with stage 1 through stage 4 chronic kidney disease, or unspecified chronic kidney disease Franklin Jama MD 03/31/2023 E87.1 Hypo-osmolality and hyponatr emia Franklin Jama MD 03/31/2023 N18.32 Chronic kidney disease, stag e 3b Franklin Jama MD 03/31/2023 E87.5 Hyperkalemia Sin Moreland 03/31/2023 R80.9 Proteinuria, unspecified Princess Jama MD 12/08/2022 I12.9 Hypertensive chr onic kidney disease with stage 1 through stage 4 chronic kidney disease, or unspecified chronic kidney disease Devonte Sonia 12/08/2022 E87.1 Hypo-osmolality and hyponatr emia Devonte, Sonia 12/08/2022 N18.32 Chronic kidney disease, stag e 3b Devonte, Sonia 12/08/2022 E87.5 Hyperkalemia Devonte Sonia 12/08/2022 R80.9 Proteinuria, unspecified Jam franny, Sonia 12/08/2022 N17.9 Acute kidney failure, unspec ified Devonte Sonia 09/02/2022 E87.1 Hypo-osmolality and hyponatr emia Devonte, Sonia 09/02/2022 I10 Essential (primary) hyperten dami Sonia Whitney 09/02/2022 N18.32 Chronic kidney disease, stag e 3b Soina Whitney 09/02/2022 E87.5 Hyperkalemia DevonteSonia 11/17/2021 E87.1 Hypo-osmolality and hyponatr anjum Jama MD 11/17/2021 I10 Essential (primary) hyperten dami Jama MD 11/17/2021 N18.32 Chronic kidney disease, stag e 3b Franklin Jama MD 07/21/2021 E87.1 Hypo-osmolality and hyponatr emia Franklin Jama MD 07/21/2021 I10 Essential (primary) trini Jama MD 07/21/2021 N18.32 Chronic kidney disease, stag e magalis Jama MD 06/18/2021 E87.1 Hypo-osmolality and hyponatr emkatey Jama MD 06/18/2021 I10 Essential (primary) trini Jama MD 06/18/2021 N17.9 Acute kidney failure, unspec ified Franklin Jama MD 02/07/2021 E87.1 Hypo-osmolality and hyponatr emia Maite Vogt.DLizet 02/07/2021 R11.2 Nausea with vomiting, unspec ified Maitemaurilio Vogt.DLizet 02/07/2021 I10 Essential (primary) trini Vogt.DLizet 02/07/2021 E78.5 Hyperlipidemia, unspecified Maitemaurilio Schwarzna Sin.DLizet 02/06/2021 E87.1 Hypo-osmolality and hyponatr emkatey Daniel M.D. 02/06/2021 R11.2 Nausea with vomiting, unspec ified iJn Daniel M.D. 02/06/2021 I10 Essential (primary) trini Daniel M.D. 02/06/2021 E78.5 Hyperlipidemia, unspecified Jin Daniel M.D. 02/05/2021 E87.1 Hypo-osmolality and hyponatr emia Jin Daniel M.D. 02/05/2021 R11.2 Nausea with vomiting, unspec ified Jin Daniel M.D. 02/05/2021 I10 Essential (primary) trini Daniel M.D. 02/05/2021 E78.5 Hyperlipidemia, unspecified Jin Daniel M.D. 02/04/2021 E87.1 Hypo-osmolality and hyponatr emia Jin Daniel M.D. 02/04/2021 R11.2 Nausea with vomiting, unspec ified Jin Daniel M.D. 02/04/2021 I10 Essential (primary) trini Daniel M.D. 02/04/2021 E87.5 Hyperkalemia Brandon Burger 02/03/2021 E87.1 Hypo-osmolality and hyponatr octavioia Devonte, Sonia 02/03/2021 R11.2 Nausea with vomiting, unspec ified Devonte, Sonia 02/03/2021 I10 Essential (primary) trini dami Whitney, Sonia 02/03/2021 E87.5 Hyperkalemia Devonte, Sonia 02/02/2021 E87.1 Hypo-osmolality and hyponatr octavioia Jin Daniel M.D. 02/02/2021 R11.2 Nausea with vomiting, unspec ified Jin Daniel M.D. 02/02/2021 I10 Essential (primary) trini Daniel M.D. 02/02/2021 E87.5 Hyperkalemia Brandon Burger
--- OUTSIDE RECORDS SUMMARY | 2025-02-12 13:33 | XMS_ITS | CCD ---
Author Organization [facility] Inform ion Partnership [facility] Care Team Providers Care Veneer Clipper Name Role Phone Jaclyn Son MD Primary Care Provider [phone] EUGENE MICHELLE Referring Unavailable JACLYN SON Primary Care Unavailable HUY, RONER R Primary [...] Attending Unavailable Jaclyn SON Primary Care Physician Darryl Soto DO Darryl Soto Attending Provider MD Tony Son Primary Care Provider [phone] MD Chance Beavers Attending Provider MD Tony Son Primary Care Provider MD Chance Beavers Attending Provider Chance Beavers Admitting Unavailable Chance Beavers Attending Unavailable Huy, Tony R Primary Care Unavailable Chance Beavers Admitting Unavailable Chance Beavers Attending Unavailable Tony Son R Primary Care Unavailable Huy, Tony R Primary Care Unavailable Darryl Soto Admitting Unavailable Darryl Soto Attending Unavailable Chance Beavers Admitting Unavailable Ditty, Chance J Attending Unavailable Tony Son Primary Care Unavailable Radha Porter Unavailable CATHY ROONEY Admitting Unavailable CATHY ROONEY Attending Unavailable DR JASMIN AMEZCUA Primary Care Unavailable [facility], DOCTOR Consulting Unavailable CATHY ROONEY Consulting Unavailable DAYAMI, DOCTOR Admitting Unavailable [facility], DOCTOR Attending Unavailable DR JASMIN AMEZCUA Primary Care Unavailable [facility], DOCTOR Consulting Unavailable Shannan Alfaro Unavailable Jaclyn SON Attending Unavailable Jaclyn SON Attending Unavailable Jaclyn SON Attending Unavailable Allergies Allergy Classification Reported Allergen(s) Allergy Type Date of Onset Reaction(s) Facility Opioid Agonists (3 sources) Codeine Drug Allergy 1 proVITAL (20 sources) Codeine; Translations: [codeine] Drug Allergy 1 Chest pain (finding) [facility] (1 source) Codeine Drug Allergy 1 [facility] Repository Medications Current Medications Medication Drug Class(es) [...] Indications: Closed hip fracture, right, initial encounter ([facility]) Take 1 tablet by mouth every 6 hours as needed for Pain for up to 7 days. 30 tablet 0 01/13/2021 01/20/2021 Active Start: 01-10-2021 HYDROcodone-ac etaminophen (NORCO) 5-325 MG per tablet 1 tablet acetaminophen 325 mg / oxyCODONE hydrochloride 5 mg oral tablet (1 source) Opioid Agonist Start: 01-09-2021 oxyCODONE-acetaminophen (PERCOCET) 5-325 MG per tablet 1 tablet [id number] 200 actuat albuterol 0.09 mg/actuat metered dose inhaler (14 sources) beta2-Adrene rgic Agonist Start: 02-17-2021 take 2 puff(s) by inhalation every six hours for wheezing Pro-Air HFA CFC free 90 mcg/inh MDI 2 puff(s), Inhalation, q6hr for wheezing, 8.5 gram, Refill(s) 1, [facility], 152, cm, 02/17/21 15:40:00 EDT, Height/Length [...] Start: 06-01-2022 take 1 tablet by alejandra th every twelve hours Amoxicillin 875 MG 1 [...] inh, Inhalation, Daily, 1 EA, Refill(s) 12, [facility] #72, 154, cm, 01/25/23 13:10:00 EDT, Height/Length Dosing, 39.9, kg, 01/25/23 13:10:00 EDT, Weight Dosing Start Date: 02/21/23 Status: Ordered Start: 04-13-2022 Anoro Ellipta 62.5 mcg-25 mcg inhalation powder 1 inh, Inhalation, Daily, 1 EA, Refill(s) 12, [facility], 154.9, cm, 01/21/22 13:26:00 EDT, Height/Length [...] for 30 day(s), 30 blister(s), Refill(s) 5, [facility], 154.9, cm, 05/04/21 12:55:00 EST, [...] y Aspirin Active 325 MG PO Daily March 14, 2022 11:00pm atorvastatin 20 mg oral tablet [...] Active docusate sodium 50 mg / sennosides, detention 8.6 mg oral tablet (7 sources) Start: [...] bedtime), # 90 tab(s), Refills(s) 3, Pharmacy: [facility], 154, cm, 08/02/23 10:44:00 EST, Height/Length Dosing, 41.3, kg, 08/02/23 10:44:00 EST, Weight Dosing Start Date: 08/02/23 Status: Ordered Start: 07-23-2021 take 1 tablet by alejandra th once daily at bedtime famotidine 40 mg Tab 40 mg = 1 tab(s), Oral, Once a day (at bedtime), # 90 tab(s), Refills(s) 1, Pharmacy: [facility], 154, cm, 08/30/22 14:11:00 EDT, Height/Length [...] tablet 0 01/14/2021 Active lactobacillus rhamnosus gg [id number] unt oral capsule (7 sources) Start: 01-14-2021 [...] Daily, # 30 tab(s), Refills(s) 5, Pharmacy: [facility], 154.9, cm, 03/12/21 10:12:00 EDT, Height/Length [...] needed, # 30 tab(s), Refills(s) 2, Pharmacy: [facility], 154.9, cm, 07/29/22 13:20:00 EST, Height/Length [...] needed, # 30 tab(s), Refills(s) 2, Pharmacy: [facility], 154.9, cm, 10/27/21 12:15:00 EDT, Height/Length [...] Once a day Active polyethylene glycol 3350 37225 mg powder for oral solution (4 sources) [...] q6hr for wheezing, 8.5 gram, Refill(s) 1, [facility], 152, cm, 02/17/21 15:40:00 EDT, Height/Length [...] piggyback being infused. 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 Chronic kidney disease, stage 3b COPD with asthma Cigarette nicotine dependence Screening mammography declined Influenza vaccination given Your Care Team Attending Physician - Jaclyn SON MD Primary Care Physician - Jaclyn SON MD This Is Your Medications List albuterol (Pro-Air HFA CFC free 90 mcg/inh MDI) amlodipine (amLODIPine 2.5 mg Tab) famotidine (famotidine 40 mg Tab) sodium zirconium cyclosilicate (Lokelma 10 g oral powder for reconstitution) umeclidinium-vilante rol (Anoro Ellipta 62.5 mcg-25 mcg inhalation powder) [Image Removed: STOP]Stop taking these medications aspirin (aspirin 81 mg Oral EC Tab) loratadine (loratadine 10 mg Tab) meclizine (meclizine 12.5 mg Tab) multivitamin with minerals (Multivitamins and Minerals) patiromer (Veltassa 8.4 g oral powder for reconstitution) Procedures Performed Colonoscopy (03/15/2022), Colonoscopy (09/09/2021), Cholecystectomy, Closed reduction of fracture of right femur and internal fixation using dynamic hip screw plate, Total abdominal hysterectomy. Discharge Vitals Temperature (Temporal Artery) 36.6 ???C Heart Rate (Peripheral) 87 Blood Pressure 136/74 Height 61 in Height 154 cm Weight 95.901 lb Weight 43.5 kg BMI 18.34 What to do next Scheduled Follow-Up Appointments 2025 1:00 PM EDT Where: [facility] [address] [address]- Medications What How Much When Instructions Changed sodium zirconium cyclosilicate (Lokelma 10 g oral powder for reconstitution) 1 Packets By Mouth Every other day Unchanged albuterol (Pro-Air HFA CFC free 90 mcg/ inh MDI) 2 Puffs Inhalation Every 6 hours as needed for for wheezing Unchanged amlodipine (amLODIPine 2.5 mg Tab) 1 Tablets By Mouth Every day Unchanged famotidine (famotidine 40 mg Tab) 1 Tablets By Mouth Once a day (at bedtime) Unchanged umeclidinium-vilante rol (Anoro Ellipta 62.5 mcg-25 mcg inhalation powder) See instructions INHALE 1 PUFF BY MOUTH DAILY What How Much When Comments Stop Taking aspirin (aspirin 81 mg Oral EC Tab) 1 Tablets By Mouth Every day Stop Taking loratadine (loratadine 10 mg Tab) 1 Tablets By Mouth Every day Stop Taking meclizine (meclizine 12.5 mg Tab) 1 Tablets By Mouth 3 times a day as needed for for dizziness Use upto three times daily for dizziness as needed Stop Taking multivitamin with minerals (Multivitamins and Minerals) 1 tab By Mouth Every day Stop Taking patiromer (Veltassa 8.4 g oral powder for reconstitution) Oral, 0 Refill(s) Medications and Immunizations Administered Given Fluzone High-Dose PF Prefilled Syringe [id number], 0.5 mL, IntraMuscular. For: Influenza vaccination given influenza virus vaccine, inactivated, IntraMuscular Allergies codeine (Chest pain) Problems Ongoing - Any problem that you are currently receiving treatment for. Allergic rhinitis due to pollen Anemia associated with stage 4 chronic renal failure Anemia of chronic disease At risk for falls Benign positional vertigo BMI less than 19,adult Chronic kidney disease, stage 3b Cigarette nicotine dependence COPD with asthma Heart burn Hyperkalemia Hyperplastic polyp of sigmoid colon Hyperplastic rectal polyp Hyponatremia Polyp of ascending colon Screening mammography declined Historical - Any problem that you are no longer receiving treatment for. Encounter for lipid screening for cardiovascular disease Patient Survey You may receive a survey via text or e-mail asking about your office visit. Please share your experience with us by completing your survey. We appreciate your feedback and thank you for choosing us for your care. Education Materials Steps to Quit Smoking Smoking tobacco is the leading cause of preventable . It can affect almost every organ in the body. Smoking puts you and those around you at risk for developing many serious chronic diseases. Quitting smoking can be very challenging. Do not get discouraged if you are not successful the first time. Some people need to make many attempts to quit before they achieve long-term success. Do your best to stick to your quit plan, and talk with your health care provider if you have any questions or concerns. How do I get ready to quit? When you decide to quit smoking, create a plan to help you succeed. Before you quit: ??? Pick a date to quit. Set a date within the next 2 weeks to give you time to prepare. ??? Write down the reasons why you are quitting. Keep this list in places where you will see it often. ??? Tell your family, friends, and co-workers that you are quitti (more content not included)... Normal [facility] Ambulatory Visit Summary Ambulatory Visit Summary LENCHO CANDELARIO :1950 Visit Date:09/11/2024 Ambulatory Visit Instructions Your Diagnosis Annual visit for general adult medical examination without abnormal findings Anemia associated with stage 4 chronic renal failure Chronic kidney disease, stage 3b COPD with asthma Cigarette nicotine dependence Screening mammography declined Influenza vaccination given Your Care Team Attending Physician - HUY LIM, Jalcyn Primary Care Physician - HUY LIM, Jaclyn This Is Your Medications List albuterol (Pro-Air HFA CFC free 90 mcg/inh MDI) amlodipine (amLODIPine 2.5 mg Tab) famotidine (famotidine 40 mg Tab) sodium zirconium cyclosilicate (Lokelma 10 g oral powder for reconstitution) umeclidinium-vilante rol (Anoro Ellipta 62.5 mcg-25 mcg inhalation powder) [Image Removed: STOP]Stop taking these medications aspirin (aspirin 81 mg Oral EC Tab) loratadine (loratadine 10 mg Tab) meclizine (meclizine 12.5 mg Tab) multivitamin with minerals (Multivitamins and Minerals) patiromer (Veltassa 8.4 g oral powder for reconstitution) Procedures Performed Colonoscopy (03/15/2022), Colonoscopy (09/09/2021), Cholecystectomy, Closed reduction of fracture of right femur and internal fixation using dynamic hip screw plate, Total abdominal hysterectomy. What to do next Scheduled Follow-Up Appointments 2025 1:00 PM EDT Where: [address] [address]- Medications What How Much When Instructions Changed sodium zirconium cyclosilicate (Lokelma 10 g oral powder for reconstitution) 1 Packets By Mouth Every other day Unchanged albuterol (Pro-Air HFA CFC free 90 mcg/ inh MDI) 2 Puffs Inhalation Every 6 hours as needed for for wheezing Unchanged amlodipine (amLODIPine 2.5 mg Tab) 1 Tablets By Mouth Every day Unchanged famotidine (famotidine 40 mg Tab) 1 Tablets By Mouth Once a day (at bedtime) Unchanged umeclidinium-vilante rol (Anoro Ellipta 62.5 mcg-25 mcg inhalation powder) See instructions INHALE 1 PUFF BY MOUTH DAILY What How Much When Comments Stop Taking aspirin (aspirin 81 mg Oral EC Tab) 1 Tablets By Mouth Every day Stop Taking loratadine (loratadine 10 mg Tab) 1 Tablets By Mouth Every day Stop Taking meclizine (meclizine 12.5 mg Tab) 1 Tablets By Mouth 3 times a day as needed for for dizziness Use upto three times daily for dizziness as needed Stop Taking multivitamin with minerals (Multivitamins and Minerals) 1 tab By Mouth Every day Stop Taking patiromer (Veltassa 8.4 g oral powder for reconstitution) Oral, 0 Refill(s) Medications and Immunizations Administered Given Fluzone High-Dose PF Prefilled Syringe , 0.5 mL, IntraMuscular. For: Influenza vaccination given influenza virus vaccine, inactivated, IntraMuscular Allergies codeine (Chest pain) Problems Ongoing - Any problem that you are currently receiving treatment for. Allergic rhinitis due to pollen Anemia associated with stage 4 chronic renal failure Anemia of chronic disease At risk for falls Benign positional vertigo BMI less than 19,adult Chronic kidney disease, stage 3b Cigarette nicotine dependence COPD with asthma Heart burn Hyperkalemia Hyperplastic polyp of sigmoid colon Hyperplastic rectal polyp Hyponatremia Polyp of ascending colon Screening mammography declined Historical - Any problem that you are no longer receiving treatment for. Encounter for lipid screening for cardiovascular disease Patient Survey You may receive a survey via text or e-mail asking about your office visit. Please share your experience with us by completing your survey. We appreciate your feedback and thank you for choosing us for your care. [facility] Family Medicine Office/Clini c Noteon 09-11-2024 Family Medicine Office/Clinic Note Family Medicine Office/Clinic Note Chief Complaint Medicare Wellness Visit Review of Systems PHQ Score Initial Depression Screen Score: 0 SCORE Physical Exam Vitals & Measurements T: 36.6 ???C(Temporal Artery) HR: 87(Peripheral) BP: 136/74 SpO2: 99% HT: 154 cm HT: 61 in WT: 95.901 lb WT: 43.5 kg BMI: 18.34 Assessment/Plan I was in the office and [...] print out of all the current AHRQ USPSTF???s recommendations for preventative services and all current [...] of clutter to prevent tripping and/or falling. [place] Advance Directives reviewed. Documents declined. Patient denies any problems with ADL???s and Instrumental ADL???s. Cognitive screening completed with memory and clock face drawing. No deficits noted. Immunization record reviewed, discussed Shingrix vaccines have been administered. COVID vaccines have been administered, with 2 Boosters received. Allergies and medications reviewed and up to date. No concerns with taking medication as prescribed. Reviewed OTC medications, medication list up to date. Blood tests were reviewed: Discussed what tests need to be updated. Labs were up to date. No concerns with bowel/ bladder. Colonoscopy last completed 03/15/22. Reviewed pain symptoms : denies pain, no pain medications taken. Reviewed all outside providers that patient follows. Last visit summary notes available in chart and/or have been requested. Patient declines any signs or symptoms of depression at this time. 3 minutes spent with screening and documentation. PHQ2 screening score 0. Patient never drinks alcohol, denies concerns. 3 minutes spent with screening and documentation. Audit score 0. Follow up scheduled with PCP, as needed. AWV has been scheduled, 09/12/25 @1pm. 2. Anemia associated with stage 4 chronic renal failure (N18.4: Chronic kidney disease, stage 4 (severe)) Patient denies any fatigue or weakness. Diet with iron rich nutrients encouraged : beans, beets, dark green leafy vegetables. Will continue labs with PCP as needed. 3. Chronic kidney disease, stage 3b (N18.32: Chronic kidney disease, stage 3b) Follows up with [facility], Dr. Rooney. Office notes available in chart for PCP to review. Patient voices understanding with avoiding NSAID's. Healthy Kidney Nutritional education material reviewed and provided with patient. Goals to keep blood sugars and blood pressure under better control to reduce cardiovascular risk factors. Medications and blood work monitored with visits. Patient continues taking statin medications daily. 4. COPD with asthma (J44.9: Chronic obstructive pulmonary disease, unspecified) Patient takes inhalers as directed. Follows Dr. Nichols. Patient remains on R/A, o2Sat 99% today , will follow up as needed with Dr. Son. 5. Cigarette nicotine dependence (F17.210: Nicotine dependence, cigarettes, [...] 8 minutes with face to face discussion completed with patient during visit. 6. Screening mammography declined (Z53.20: Procedure and treatment not carried out because of patient's decision for unspecified reasons) Patient declines mammogram, encouraged to do at home self breast exams. 7. Influenza vaccination given (Z23: Encounter for immunization) Influenza vaccine administered to left deltoid at today???s visit. Patient tolerated well. No concerns. Signed consent form on file in patient???s chart. Follow-up No qualifying data available Patient Education Steps to Quit Smoking Health Risks of Smoking Chronic Obstructive Pulmonary Disease Chronic Kidney Disease, Adult Problem List/Past Medical History Ongoing Allergic rhinitis due to pollen Anemia associated with stage 4 chronic renal failure Anemia of chronic disease At (more content not included)... Normal [facility] Comment on above: Result Comment: Elec tronically Signed By: Jaclyn SON MD\.br\Date and Time Signed: 09/11/24 15:20 EDT\.br\Electronically Co-Signed By: Evita ALVAREZ, Lubna Stevenson\.br\Date and Time Co-Signed: 09/11/24 14:58 EDT Family Medicine Office/Clinic Note Family Medicine Office/Clinic Note Chief Complaint annual chk up, not fasting, no rfs History of Present Illness Elderly adult presents with her daughter had wellness exam already with the Medicare nurse. Has been generally in good health since last seen 1 year ago. Patient suffers chronic renal insufficiency and follows with nephrology did see Dr. Sosa within the past 1 month. I do not have his notes or laboratories drawn through [facility] at my disposal. Apparently he made no changes in her treatment regimen. She still remains cautious about potassium in the diet and does take Lokelma daily. She is using her Anoro inhaler daily with no breakthrough episodes of COPD. She did get mild respiratory illness during the winter but nothing that required office visit. We did discuss the recommendation for an RSV vaccine. She has deferred bone density testing and has aged out of mammographic screening. She denies any acute issues with limited dentition remaining. No visual disturbances. No problems with headaches or bowels. Mildly short of breath all the time. No rashes or lesions no edema. Review of Systems PHQ Score Initial Depression Screen Score: 0 SCORE See HPI otherwise negative Physical Exam Vitals & Measurements T: 36.6 ???C(Temporal Artery) HR: 87(Peripheral) RR: 16 BP: 136/74 SpO2: 99% HT: 154 cm HT: 61 in WT: 95.901 lb WT: 43.5 kg BMI: 18.34 Somewhat disheveled but adequately hydrated elderly appears older than stated age. Has very limited emmonak dentition but nothing appears broken or infected. Oropharynx is pink and moist. Neck is very thin supple no thyromegaly no JVD or bruits. TMs are clear grossly normal hearing conjunctiva clear. Smell of tobacco smoke is present. Lungs are greatly diminished there are faint expiratory wheezing at the bases no rhonchi. Cardiac distant S1-S2 with regular rate and rhythm no murmurs. Abdomen very thin nontender no organomegaly no pulsatile masses. Lower extremities without edema. Skin is very pale. There are senile purpura on the arms. Moves very slowly but no tremors Assessment/Plan 1. COPD with asthma (J44.9: Chronic obstructive pulmonary disease, unspecified) Continue with the Anoro daily keeping albuterol available for rescue avoid respiratory irritants. Strongly encouraged RSV through the pharmacy she will check on it. 2. Anemia associated with stage 4 chronic renal failure (N18.4: Chronic kidney disease, stage 4 (severe)) Continue following with nephrology regularly. We will retrieve office notes and laboratories. Avoidance of anti-inflammatories OTC prevent any worsening of renal insufficiency and maintaining water hydration at all times reviewed. 3. Anemia of chronic disease (D63.8: Anemia in other chronic diseases classified elsewhere) Chronic in nature likely related to the stage IV renal failure 4. Benign positional vertigo (H81.10: Benign paroxysmal vertigo, unspecified ear) Has had no recent episodes of vertigo no longer using meclizine. Remain observant for any recurrence. 5. Cigarette nicotine dependence (F17.210: Nicotine dependence, cigarettes, [...] we would be happy to provide these. 6. Heart burn (R12: Heartburn) Continues with daily PPI. Always remain vigilant for any dysphagia. Dietary discretions are reviewed 7. Hyperkalemia (E87.5: Hyperkalemia) Continues on Lokelma under the care of the morphologist. 8. Screening mammography declined (Z53.20: Procedure and treatment not carried out because of patient's decision for unspecified reasons) Patient defers mammogram screening 9. BMI less than 19,adult (Z68.1: Body mass index [BMI] 19.9 or less, adult) Recommend patient try to maintain good caloric intake because of the low body mass index which places her at greater risk of falls and injuries and also runs greater risk of malnutrition. Orders: influenza virus vaccine, inactivated, 0.5 mL, Susp-Inj, IntraMuscular, Once, Stop date 09/11/24 14:00:00 EDT, Routine, Start date 09/11/24 14:00:00 EDT Admin flu virus vaccine [id number] Follow-up With When Contact Information Jaclyn SON MD, FAM Within 1 year [address] [place] [address]- Additional Instructions: Patient Education Chronic Obstructive Pulmonary Disease Problem List/Past Medical History Ongoing Allergic rhinitis due to pollen Anemia associated with stage 4 chronic renal failure Anemia of chronic disease At risk for falls Benign positional vertigo BMI less than 19,adult Chronic kidney disease, stage 3b Cigarette nicotine dependence CO (more content not included)... Normal [facility] Comment on above: Result Comment: Elec tronically Signed By: HUY LIM, Jaclyn\.br\Date and Time Signed: 09/11/24 14:06 EDT Reminderson 09-11-2024 Reminders Reminders - From: Carolina Melchor To: W - Administrative; Sent: 09/11/2024 14:09:09 EDT Show up: 06/11/2025 06:00:00 EST Subject: Ambulatory Reminder Reminder/Recall Calos of 2025 not out for provider at time of appointment. Please call daughter to schedule appointment with PCP on September 11 after medicare appointment. Normal [facility] Consultation Noteon 10-27-19 Consultation Note [id number]# 1.00TIFF [facility] Patient Correspondenceon Patient Correspondence [id number] #1.00TIFF [facility] CHEMISTRYOrdered By: SYSTEM SYSTEM on 08-02-2023 Albumin [Mass/Vol] 3.7 g/dL Normal 3.3 - 5.0 gm/dL Remisol Chem Albumin/Globulin [Mass ratio] 1.2 {ratio} Normal [...] mg/dL Normal 0.0 - 1.1 mg/dL Remisol Chem Calcium [Mass/Vol] 9.4 mg/dL Normal 8.9 - 11. 1 mg/dL Remisol Chem Chloride [Moles/Vol] 108 mmol/L Normal 101 - 1 11 mmol/L Remisol Chem CO2 [Moles/Vol] 28 mmol/L Normal 21 - 31 mmol/L Remisol Chem Creatinine [Mass/Vol] 1.9 mg/dL High 0.5 - 1.3 mg/dL Remisol Chem eGFR 27 mL/min/1.73 m2 Low >=59mL/min /1 .73 m2 Remisol Chem Globulin (S) [Mass/Vol] 3.0 g/dL Normal 1.4 - 4.0 gm/dL Remisol Chem Glucose [Mass/Vol] 96 mg/dL Normal 55 - 199 mg/dL Remisol Chem Potassium [Moles/Vol] 5.1 mmol/L Normal 3.5 - 5.3 mmol/L Remisol Chem Protein [Mass/Vol] 6.7 g/dL Normal 6.0 - 7.8 gm/dL Remisol Chem Sodium [Moles/Vol] 140 mmol/L Normal 135 - 145 mmol/L Remisol Chem Urea nitrogen [Mass/Vol] 27 mg/dL High 5 - 21 mg/dL Remisol Chem Urea nitrogen/Creatinine [Mass ratio] 14 mg/mg Normal 10 - 20 Remisol Chem HEMATOLOGYOrdered By: SYSTEM SYSTEM on 08-02-2023 Basophil Absolute 0.0 E9/L Normal 0.0 - 0.2 E9/L Remisol Heme Basophils/100 WBC (Bld) 0.4 % Normal [...] 2.0 E9/L Normal 1.0 - 4.0 E9/L Remisol Heme Lymphocytes/100 WBC (Bld) 32.3 % Normal 14.0 - 50.0 % Remisol Heme MCH (RBC) [Entitic mass] 26.2 pg Low 27.0 - 34.0 pg Remisol Heme MCHC (RBC) [Mass/Vol] 31.2 g/dL Low 31.4 - 36.0 gm/dL [facility]e MCV (RBC) [Entitic vol] 83.9 fL Normal 80.0 - 100.0 fL Remisol Heme [place] Absolute 0.5 E9/L Normal 0.2 - 1.0 E9/L Rem[facility] Heme Monocytes/100 WBC (Bld) 8.3 % Normal 4.0 - 14.0 % [facility] Neutro Absolute 3.6 E9/L Normal 2.0 - 7.5 E9/L [facility] Heme Neutro Auto 57.9 % Normal 36.0 - 75.0 % [facility] Heme Platelet 174.0 E9/L Normal 150.0 - 500.0 E9/L [facility] Heme Platelet mean volume (Bld) [Entitic vol] 9.4 fL Normal 6.4 - 10.8 fL [facility] Heme RBC 3.9 E12/L Low 4.3 - 5.9 E12/L [facility] Heme WBC 6.2 E9/L Normal 4.0 - 11.0 E9/L Remisol Heme Quick Strepon 02-25-2023 S. pyogenes Org specific cx Ql (Throat) Negative Good Deal Other Quick Strep [facility] Other Quick Strepon 10-22-2022 S. pyogenes Org specific cx Ql (Throat) Negative [facility] Other Quick Strep [facility] Other MAGNESIUMon 09-08-2022 Magnesium [Mass/Vol] 1.6 mg/dL Critically low 1.8-2.4 [facility] Comment on above: Performed By: #### M G, RENAL #### [facility] [address] [place] [address] Dr. Agustín Odell RENAL FUNCTION PANELon 09-08 Albumin [Mass/Vol] 3.4 g/dL Normal 3.4-5.0 [facility] Comment on above: Performed By: #### M G, RENAL #### [facility] [address] [place] [address] Dr. Agustín Odell Calcium [Mass/Vol] 9.2 mg/dL Normal 8.5-10.1 [facility] Comment on above: Performed By: #### M G, RENAL #### [facility] [address] [place] [address] Dr. Agustín Odell Chloride [Moles/Vol] 108 mmol/L Critically high 98-107 [facility] Comment on above: Performed By: #### M G, RENAL #### [facility] [address] [place] [address] Dr. Agustín Odell CO2 [Moles/Vol] 26.1 mmol/L Normal 21.0-32.0 [facility] Comment on above: Performed By: #### M G, RENAL #### [facility] [address] [place] [address] Dr. Agustín Odell Creatinine [Mass/Vol] 1.70 mg/dL Critically high 0.55-1.02 [facility] Comment on above: Performed By: #### M G, RENAL #### [facility] [address] [place] [address] Dr. Agustín Odell EGFR-AF [place] 36 mL/min/1.73m2 Critically low >=60 [facility] Comment on above: Performed By: #### Sin G, RENAL #### [facility] [address] [place] [address] Dr. Agustín Odell EGFR-NON AF [place]ONE[place] 29 mL/min/1.73m2 Critically low >=60 [facility] Comment on above: Performed By: #### M G, RENAL #### [facility] [address] [place] [address] Dr. Agustín Odell Glucose [Mass/Vol] 190 mg/dL Critically high 74-106 [facility] Comment on above: Performed By: #### M G, RENAL #### [facility] [address] [place] [address] Dr. Agustín Odell Phosphate [Mass/Vol] 3.3 mg/dL Normal 2.6-4.7 [facility] Comment on above: Performed By: #### M G, RENAL #### [facility] [address] [address] [address] Agustín Odell Potassium [Moles/Vol] 4.4 mmol/L Normal 3.5-5.1 [facility] Comment on above: Performed By: #### M G, RENAL #### [facility] [address] [address] [address] Agustín Odell Sodium [Moles/Vol] 144 mmol/L Normal 136-145 [facility] Comment on above: Performed By: #### M G, RENAL #### [facility] [address] [place] [address] Dr. Agustín Odell Urea nitrogen [Mass/Vol] 21.0 mg/dL Critically high 7.0-18.0 [facility] Comment on above: Performed By: #### Sin G, RENAL #### [facility] [address] [place] [address] Dr. Agustín Odell CHEMISTRYOrdered By: SYSTEM SYSTEM on 08-30-2022 Anion gap [Moles/Vol] 11 mmol/L Normal 6 - 16 mEq/L F [facility] Remisol Calcium [Mass/Vol] 9.3 mg/dL Normal 8.9 - 11. 1 mg/dL [facility] Remisol Chloride [Moles/Vol] 105 mmol/L Normal 101 - 1 11 mmol/L FT Remisol CO2 [Moles/Vol] 26 mmol/L Normal 21 - 31 mmol/L FT Remisol Creatinine [Mass/Vol] 1.5 mg/dL High 0.5 - 1.3 mg/dL [facility] Remisol GFR/1.73 sq M.predicted among blacks MDRD (S/P/Bld) [Vol rate/Area] 41 mL/min/1.73 m2 Low >=59mL/min/1 .73 m2 FT Chem S GFR/1.73 sq M.predicted among non-blacks MDRD (S/P/Bld) [Vol rate/Area] 34 mL/min/1.73 m2 Low >=59mL/min/1 .73 m2 [facility] Chem S Glucose [Mass/Vol] 116 mg/dL Normal 55 - 199 mg/dL [facility] Remisol Potassium [Moles/Vol] 6.0 mmol/L Invalid Interpretation Code 3.5 - 5.3 mmol/L [facility] Comment on above: Result Comment: Crit ical Result verified by repeat analysis\Critical Result S_K:6.0 [facility] by SAL COREA And Read Back For Confirmation at: 08/30/2022 18:27:25 Sodium [Moles/Vol] 136 mmol/L Normal 135 - 145 mmol/L FT Remisol Urea nitrogen [Mass/Vol] 27 mg/dL High 5 - 21 mg/dL [facility] Remisol Urea nitrogen/Creatinine [Mass ratio] 18 mg/mg Normal 10 - 20 [facility] Remisol CHEMISTRYOrdered By: SYSTEM SYSTEM on 08-06-2022 Anion gap [Moles/Vol] 12 mmol/L Normal 6 - 16 mEq/L F [facility] Remisol Calcium [Mass/Vol] 9.0 mg/dL Normal 8.9 - 11. 1 mg/dL [facility] Remisol Chloride [Moles/Vol] 102 mmol/L Normal 101 - 1 11 mmol/L [facility] Remisol CO2 [Moles/Vol] 26 mmol/L Normal 21 - 31 mmol/L [facility] Remisol Creatinine [Mass/Vol] 1.6 mg/dL High 0.5 - 1.3 mg/dL [facility] Remisol GFR/1.73 sq M.predicted among blacks MDRD (S/P/Bld) [Vol rate/Area] 38 mL/min/1.73 m2 Low >=59mL/min/1 .73 m2 [facility] Chem S GFR/1.73 sq M.predicted among non-blacks MDRD (S/P/Bld) [Vol rate/Area] 32 mL/min/1.73 m2 Low >=59mL/min/1 .73 m2 [facility] Chem S Glucose [Mass/Vol] 111 mg/dL Normal 55 - 199 mg/dL [facility] Remisol Potassium [Moles/Vol] 5.1 mmol/L Normal 3.5 - 5.3 mmol/L [facility] Remisol Sodium [Moles/Vol] 135 mmol/L Normal 135 - 145 mmol/L [facility] Remisol Troponin I.cardiac [Mass/Vol] 29.90 pg/mL High 10.10 - 27.10 pg/mL [facility] Remisol Urea nitrogen [Mass/Vol] 25 mg/dL High 5 - 21 mg/dL [facility] Remisol Urea nitrogen/Creatinine [Mass ratio] 16 mg/mg Normal 10 - 20 [facility] Remisol Potassium [Moles/Vol] 6.0 mmol/L Invalid Interpretation Code 3.5 - 5.3 mmol/L [facility] Comment on above: Result Comment: Crit ical Result verified by repeat analysis\Critical Result S_K:6.0 Called to NABILA HOLLEY AT [facility] by DANGELO LEMA And Read Back For [...] Normal 0.0 - 8.0 % [facility]eAutoSS Eosinophils/Leukocytes Auto (Bld) [Pure # fraction] 0.1 E9/L Normal 0.0 - 0.5 E9/L [facility] Lymphocytes/100 WBC (Bld) 19.5 % Normal 14.0 - 50.0 % [facility] Lymphocytes/Leukocytes Auto (Bld) [Pure # fraction] 1.4 E9/L Normal 1.0 - 4.0 E9/L [facility] Monocytes/100 WBC (Bld) 9.5 % Normal 4.0 - 14.0 % [facility] Monocytes/Leukocytes Auto (Bld) [Pure # fraction] 0.7 E9/L Normal 0.2 - 1.0 E9/L [facility] Neutrophils/100 WBC (Bld) 69.5 % Normal 36.0 - 75.0 % [facility] Neutrophils/Leukocytes Auto (Bld) [Pure # fraction] 5.0 E9/L [...] 4.2 E12/L Low 4.3 - 5.9 E12/L [facility] WBC corrected for nucl RBC Auto (Bld) [#/Vol] 7.2 E9/L Normal 4.0 - 11.0 E9/L [facility] CHEMISTRYOrdered By: SYSTEM SYSTEM on 07-29-2022 Albumin [Mass/Vol] 3.7 g/dL Normal 3.3 - 5.0 gm/dL [facility]isol Albumin/Globulin [Mass ratio] 1.1 {ratio} Normal [...] Bilirubin [Mass/Vol] 0.3 mg/dL Normal 0.0 - 1 .1 mg/dL [facility]isol Calcium [Mass/Vol] 9.4 mg/dL Normal 8.9 - 11. 1 mg/dL [facility]isol Chloride [Moles/Vol] 101 mmol/L Normal 101 - 1 11 mmol/L [facility] CO2 [Moles/Vol] 26 mmol/L Normal 21 - 31 mmol/L [facility] Creatinine [Mass/Vol] 1.7 mg/dL High 0.5 - 1.3 mg/dL [facility] Remisol GFR/1.73 sq M.predicted among blacks MDRD (S/P/Bld) [Vol rate/Area] 36 mL/min/1.73 m2 Low >=59mL/min/1 .73 m2 [facility] Chem S GFR/1.73 sq M.predicted among non-blacks MDRD (S/P/Bld) [Vol rate/Area] 30 mL/min/1.73 m2 Low >=59mL/min/1 .73 m2 [facility] Chem S Globulin (S) [Mass/Vol] 3.4 g/dL Normal 1.4 - 4.0 gm/dL [facility] Glucose [Mass/Vol] 93 mg/dL Normal 55 - 199 mg/dL [facility] Potassium [Moles/Vol] 5.8 mmol/L High 3.5 - 5.3 mmol/L [facility] Protein [Mass/Vol] 7.1 g/dL Normal 6.0 - 7.8 gm/dL [facility] Sodium [Moles/Vol] 135 mmol/L Normal 135 - 145 mmol/L [facility] Urea nitrogen [Mass/Vol] 24 mg/dL High 5 - 21 mg/dL [facility] Urea nitrogen/Creatinine [Mass ratio] 14 mg/mg Normal 10 - 20 [facility] HEMATOLOGYOrdered By: SYSTEM SYSTEM on 07-29-2022 Basophils/100 WBC (Bld) 0.5 % Normal 0.0 - 2.0 % [facility] Basophils/Leukocytes Auto (Bld) [Pure # fraction] 0.0 E9/L Normal 0.0 - 0.2 E9/L [facility] Eosinophils/100 WBC (Bld) 2.2 % Normal 0.0 - 8.0 % [facility] Eosinophils/Leukocytes Auto (Bld) [Pure # fraction] 0.1 E9/L Normal 0.0 - 0.5 E9/L [facility] Lymphocytes/100 WBC (Bld) 34.3 % Normal 14.0 - 50.0 % [facility] Lymphocytes/Leukocytes Auto (Bld) [Pure # fraction] 2.3 E9/L Normal 1.0 - 4.0 E9/L [facility] Monocytes/100 WBC (Bld) 8.5 % Normal 4.0 - 14.0 % [facility] Monocytes/Leukocytes Auto (Bld) [Pure # fraction] 0.6 E9/L Normal 0.2 - 1.0 E9/L [facility] Neutrophils/100 WBC (Bld) 54.5 % Normal 36.0 - 75.0 % [facility] Neutrophils/Leukocytes Auto (Bld) [Pure # fraction] 3.6 E9/L Normal 2.0 - 7.5 E9/L [facility] HEMATOLOGYOrdered By: Evi De Oliveira on 07-29-2022 Erythrocyte distribution width (RBC) [Ratio] 15.6 % High 10.9 - 14.2 % [facility] Hematocrit (Bld) [Volume fraction] 34.3 % Normal 34.0 - 46.0 % [facility] Hemoglobin (Bld) [Mass/Vol] 11.0 g/dL Low 12.0 - 16.0 gm/dL [facility] MCH (RBC) [Entitic mass] 25.7 pg [...] 173.0 E9/L Normal 150.0 - 500.0 E9/L [facility] RBC (Bld) [#/Vol] 4.3 E12/L Normal 4.3 - 5.9 E12/L [facility] WBC corrected for nucl RBC Auto (Bld) [#/Vol] 6.6 E9/L Normal 4.0 - 11.0 E9/L [facility] Lico 03-15-2022 L Specimen: [id number] Received: 03/15/22 Status: HARLEY Sandoval Num: [id number] Spec Type: Surgical Subm Dr: Chance Beavers MD Tissues: A Colon - Polyp (CECAL POLYP) B Colon - Polyp (HEPATIC FLEXURE POLYP) Procedures: HE Stain/4, Gross/Micro L4/2 Age/ Patient Sex Location Account Attending Physician SoniaAbdoul solorzanokatey De La Cruz 71/F [id number] Chance Beavers MD SPEC NUM: [id number] RECD: 03/15/22 STATUS: HARLEY SANDOVAL NUM: [id number] EDMOND: 03/15/22 DR: Chance Beavers MD ENTERED: 03/15/22 [facility] DR: CLAU TYPE: Surgical DEPT: S ORDERED: HE Stain/4, [...] submitted in one cassette labeled B1. Specimen: [id number] Received: 03/15/22 Status: HARLEY Sandoval Num: [id number] Spec Type: Surgical Subm Dr: Chance Beavers MD Tissues: A Colon - Polyp (CECAL POLYP) B Colon - Polyp (HEPATIC FLEXURE POLYP) Procedures: HE Stain/4, Gross/Micro L4/2 Patient: SoniaLencho [id number] (Continued) Specimen: [id number] Received: 03/15/22 (Continued) Signed (signature on file) Beka Rizvi MD 03/16/22 1535 Specimen: [id number] Received: 03/15/22 Status: HARLEY Hamlinq Num: [id number] Spec Type: Surgical Subm Dr: Chance Beavers MD Tissues: A Colon - Polyp (CECAL POLYP) B Colon - Polyp (HEPATIC FLEXURE POLYP) Procedures: HE Stain/4, Gross/Micro L4/2 Patient: Lencho Candelario [id number] (Continued) Specimen: [id number] Received: 03/15/22 (Continued) Microscopic Description A. Two glass slides with H E stained material have been examined. The microscopic findings support the above pathologic diagnosis. B. Two glass slides with H E stained material have been examined. The microscopic findings support the above pathologic diagnosis. CPT Codes 81057?2 Specimen: [id number] Received: 03/15/22 Status: HARLEY Sandoval Num: [id number] Spec Type: Surgical Subm Dr: Chance Beavers MD Tissues: A Colon - Polyp (CECAL POLYP) B Colon - Polyp (HEPATIC FLEXURE POLYP) Procedures: HE Stain/4, Gross/Micro L4/2 Patient: Lencho Candelario [id number] (Continued) Signed (signature on file) Beka Rizvi MD 03/16/22 1535 [facility] COVID-19 Antigenon 2 COVID-19 Antigen Healthcare Worker?: [...] developed and its performance characteristic determined by [employer] and validated at [facility]. This test has not been FDA [...] for SARS Antigen by ISIDRO PERFORMED BY: [place] [address] PATHOLOGIST EMERGENCY PLANNER AAKASH GARCES M.D. Normal [facility] Comment on above: Performed By: #### C OVID-19 GARLAND, SOFIANEG #### [facility] [address] [place] [address] COVID-19 SOFIAOrdered By: Kathleen Beavers on 03-11-2022 SARS-CoV+SARS-CoV-2 (COVID-19) Ag IA.rapid Ql (Resp) Negative Negative [facility] Comment on above: This is a duplicate [place] SARS Antigen (ISIDRO) result to be used for statistical tracking purpose only. No Panel InformationOrdered By: Chance Beavers on 03-11-2022 SARS Antigen (LFIA) [facility] [place] Ag Negativeon 03-11-20 22 [place] Ag Negative Negative Normal Negative [facility] Comment on above: Result Comment: This is a duplicate [place] SARS Antigen (ISIDRO) result to be used for statistical tracking purpose only. PERFORMED BY: [place] [address] PATHOLOGIST EMERGENCY PLANNER AAKASH GARCES M.D. Performed By: #### C OVID-19 GARLAND, SOFIANEG #### [facility] [address] [place], [place] [address] [facility] CHEMISTRYOrdered By: SYSTEM SYSTEM on 01-29-2022 Potassium [Moles/Vol] 4.8 mmol/L Normal 3.5 - 5.3 mmol/L [facility]isol CHEMISTRYOrdered By: SYSTEM SYSTEM on 01-21-2022 Albumin [Mass/Vol] 3.7 g/dL Normal 3.3 - 5.0 gm/dL [facility] Remisol Albumin/Globulin [Mass ratio] 1.2 {ratio} Normal 1.1 - 2.2 [facility] ALP [Catalytic activity/Vol] 77 [iU]/d Normal 21 - 98 Int._Unit/L [facility] Rem[facility] ALT No additional P-5'-P [Catalytic activity/Vol] 10 [iU]/d Normal 6 - 46 Int._Unit/L [facility] Anion gap [Moles/Vol] 9 mmol/L Normal 6 - 16 mEq/L F [facility] AST [Catalytic activity/Vol] 17 [iU]/d Normal 5 - 43 Int._Unit/L [facility] Bilirubin [Mass/Vol] 0.3 mg/dL Normal 0.0 - 1 .1 mg/dL [facility] Calcium [Mass/Vol] 9.3 mg/dL Normal 8.9 - 11. 1 mg/dL [facility] Chloride [Moles/Vol] 105 mmol/L Normal 101 - 1 11 mmol/L [facility] CO2 [Moles/Vol] 28 mmol/L Normal 21 - 31 mmol/L [facility] Creatinine [Mass/Vol] 1.6 mg/dL High 0.5 - 1.3 mg/dL [facility]isol GFR/1.73 sq M.predicted among blacks MDRD (S/P/Bld) [Vol rate/Area] 38 mL/min/1.73 m2 Low >=59mL/min/1 .73 m2 FT Chem S GFR/1.73 sq M.predicted among non-blacks MDRD (S/P/Bld) [Vol rate/Area] 32 mL/min/1.73 m2 Low >=59mL/min/1 .73 m2 FT Chem S Globulin (S) [Mass/Vol] 3.1 g/dL Normal 1.4 - 4.0 gm/dL [facility] Glucose [Mass/Vol] 88 mg/dL Normal 55 - 199 mg/dL [facility]isol Potassium [Moles/Vol] 6.5 mmol/L Invalid Interpretation Code 3.5 - 5.3 mmol/L [facility] Protein [Mass/Vol] 6.8 g/dL Normal 6.0 - 7.8 gm/dL [facility] Sodium [Moles/Vol] 135 mmol/L Normal 135 - 145 mmol/L [facility] Urea nitrogen [Mass/Vol] 26 mg/dL High 5 - 21 mg/dL [facility] Urea nitrogen/Creatinine [Mass ratio] 16 mg/mg Normal 10 - 20 [facility] HEMATOLOGYOrdered By: Lumier SYSTEM on 01-21-2022 Basophils/100 WBC (Bld) 0.4 % Normal 0.0 - 2.0 % [facility] Basophils/Leukocytes Auto (Bld) [Pure # fraction] 0.0 E9/L Normal 0.0 - 0.2 E9/L [facility] Eosinophils/100 WBC (Bld) 2.3 % Normal 0.0 - 8.0 % [facility] Eosinophils/Leukocytes Auto (Bld) [Pure # fraction] 0.2 E9/L Normal 0.0 - 0.5 E9/L [facility] Lymphocytes/100 WBC (Bld) 34.4 % Normal 14.0 - 50.0 % [facility] Lymphocytes/Leukocytes Auto (Bld) [Pure # fraction] 2.3 E9/L Normal 1.0 - 4.0 E9/L [facility] Monocytes/100 WBC (Bld) 6.3 % Normal 4.0 - 14.0 % [facility] Monocytes/Leukocytes Auto (Bld) [Pure # fraction] 0.4 E9/L Normal 0.2 - 1.0 E9/L [facility] Neutrophils/100 WBC (Bld) 56.6 % Normal 36.0 - 75.0 % [facility] Neutrophils/Leukocytes Auto (Bld) [Pure # fraction] 3.8 E9/L [...] 173.0 E9/L Normal 150.0 - 500.0 E9/L [facility] RBC (Bld) [#/Vol] 4.3 E12/L Normal 4.3 - 5.9 E12/L [facility] WBC corrected for nucl RBC Auto (Bld) [#/Vol] 6.8 E9/L Normal 4.0 - 11.0 E9/L [facility] COVID-19 Antigenon 2 COVID-19 Antigen Healthcare [...] developed and its performance characteristic determined by [employer] and validated at [facility]. This test has not been FDA [...] for SARS Antigen by IS[facility] PERFORMED BY: [place] [address] PATHOLOGIST EMERGENCY PLANNER AAKASH GARCES M.D. Normal [facility] Comment on above: Performed By: #### C OVID-19 GARLAND, SOFIANEG #### [facility] [address] [place] [address] COVID-19 SOFIAOrdered By: Jerel Soto on 01-07-2022 SARS-CoV+SARS-CoV-2 (COVID-19) Ag IA.rapid Ql (Resp) Negative Negative [facility] Comment on above: This is a duplicate [place] SARS Antigen (ISIDRO) result to be used for statistical tracking purpose only. No Panel InformationOrdered By: Darryl Soto on 01-07-2022 SARS Antigen (LFIA) [facility] [place] Ag Negativeon 01-08-20 22 [place] Ag Negative Negative Normal Negative [facility] Comment on above: Result Comment: This is a duplicate [place] SARS Antigen (ISIDRO) result to be used for statistical tracking purpose only. PERFORMED BY: [place] [address] PATHOLOGIST EMERGENCY PLANNER AAKASH GARCES M.D. Performed By: #### C OVID-19 GARLAND, SOFIANEG #### [facility] [address] [place], [place] [id number] [facility] RENAL FUNCTION PANELon 11-10 Albumin [Mass/Vol] 3.3 g/dL Critically low 3.4-5.0 [facility] Comment on above: Performed By: #### R ENAL #### [facility] [address] [address] [address] Agustín Odell Calcium [Mass/Vol] 9.1 mg/dL Normal 8.5-10.1 [facility] Comment on above: Performed By: #### R ENAL #### [facility] [address] [address] [address] Agustín Odell Chloride [Moles/Vol] 96 mmol/L Critically low 98-107 [facility] Comment on above: Performed By: #### R ENAL #### [facility] [address] [address] [address] Agustín Odell CO2 [Moles/Vol] 28.4 mmol/L Normal 21.0-32.0 [facility] Comment on above: Performed By: #### R ENAL #### [facility] [address] [address] [address] Agustín Odell Creatinine [Mass/Vol] 1.58 mg/dL Critically high 0.55-1.02 [facility] Comment on above: Performed By: #### R ENAL #### [facility] [address] [place] [address] Dr. Agustín Odell EGFR-AF SIERRA LEONEAN 39 mL/min/1.73m2 Critically low >=60 [facility] Comment on above: Performed By: #### R ENAL #### [facility] [address] [address] [address] Agustín Odell EGFR-NON AF SIERRA LEONEAN 32 mL/min/1.73m2 Critically low >=60 [facility] Comment on above: Performed By: #### R ENAL #### [facility] [address] [address] [address] Agustín Odell Glucose [Mass/Vol] 100 mg/dL Normal 74-106 [facility] Comment on above: Performed By: #### R ENAL #### [facility] [address] [address] [address] Agustín Odell Phosphate [Mass/Vol] 4.2 mg/dL Normal 2.6-4.7 [facility] Comment on above: Performed By: #### R ENAL #### [facility] [address] [place] [address] Dr. Agustín Odell Potassium [Moles/Vol] 5.3 mmol/L Critically high 3.5-5.1 [facility] Comment on above: Performed By: #### R ENAL #### [facility] [address] [place] [address] Dr. Agustín Odell Sodium [Moles/Vol] 131 mmol/L Critically low 136-145 Th [facility] Comment on above: Performed By: #### R ENAL #### [facility] [address] [place] [address] Dr. Agustín Odell Urea nitrogen [Mass/Vol] 19.0 mg/dL Critically high 7.0-18.0 [facility] Comment on above: Performed By: #### R ENAL #### [facility] [address] [place] [address] Dr. Agustín Odell UA RANDOMon 11-10-2021 Bilirubin Ql (U) Negative Normal NEGATIVE [facility] Comment on above: Performed By: #### U A #### [facility] [address] [place] [address] Dr. Agustín Odell Clarity (U) CLEAR Normal CLEAR [facility] Comment on above: Performed By: #### U A #### [facility] [address] [place] [address] Dr. Agustín Odell Color (U) LT. YELLOW Normal YELLOW [facility] Comment on above: Performed By: #### U A #### [facility] [address] [place] [address] Dr. Agustín Odell Glucose Ql (U) Negative Normal NEGATIVE [facility] Comment on above: Performed By: #### U A #### [facility] [address] [place] [address] Dr. Agustín Odell Hemoglobin Ql (U) MODERATE Abnormal NEGATIVE [facility] Comment on above: Performed By: #### U A #### [facility] [address] [place] [address] Dr. Agustín Odell Ketones Ql (U) Negative Normal NEGATIVE [facility] Comment on above: Performed By: #### U A #### [facility] [address] [place] [address] Dr. Agustín Odell LEUKOCYTES LARGE Abnormal NEGATIVE [facility] Comment on above: Performed By: #### U A #### [facility] [address] [place] [address] Dr. Agustín Odell Nitrite Ql (U) Negative Normal NEGATIVE [facility] Comment on above: Performed By: #### U A #### [facility] [address] [place] [address] Dr. Agustín Odell pH (U) 6.0 [pH] Normal 5-9 [facility] Comment on above: Performed By: #### U A #### [facility] [address] [place] [address] Dr. Agustín Odell SPEC GRAVITY 1.010 Normal 1.005-<=1.02 5 [facility] Comment on above: Performed By: #### U A #### [facility] [address] [place] [address] Dr. Agustín Odell UA PROTEIN 30 mg/dl Abnormal NEGATIVE/ TRACE [facility] Comment on above: Performed By: #### U A #### [facility] [address] [place] [address] Dr. Agustín Odell Urobilinogen Qn (U) 0.2 {Pop'U}/dL Normal 0.2 - 1. 0 [facility] Comment on above: Performed By: #### U A #### [facility] [address] [place] [address] Dr. Agustín Odell URINE T PROTEIN CREAT RATIOo n 11-10-2021 Protein (U) [Mass/Vol] 44.2 mg/dL Critically high <=12.0 [facility] Comment on above: Performed By: #### U RTPCR #### [facility] [address] [place] [address] Dr. Agustní Odell UR PROT CREAT RAT 0.87 Normal [facility] Comment on above: Performed By: #### U RTPCR #### [facility] [address] [address] [address] Agustín Odell URINE CREAT 50.86 mg/dL Normal 20.00-300.00 [facility] Comment on above: Performed By: #### U RTPCR #### [facility] [address] [address] [address] Agustín Odell XR HIP 2-3 VW [...] Anthony Lomas MD 04/05/21 Final result Normal [facility] XR HIP 2-3 VW W PELVIS RIGHT Ordered By: Eugene Michelle on 04-05-2021 Stable postoperative changes with continued near complete healing of an intratrochanteric hip fracture. [facility] Phone: HISTORY: Hip fracture. TECHNIQUE: Two views of the right hip were obtained. COMPARISON: 03/06/2021. FINDINGS: There has been open reduction internal fixation of an intratrochanteric hip fracture with an intramedullary jerry and femoral neck screw. The position is satisfactory. There is continued healing of the fracture with the fracture plane still barely visible. There is no complication. [facility] Phone: Paul, Mhpn Incoming Radiant Results From [employer] - 04/05/2021 2:56 PM EDT HISTORY: Hip [...] complete healing of an intratrochanteric hip fracture. [facility] Phone: [facility] Phone: XR HIP 2-3 VW W PELVIS [...] Alexander Jr., MD 03/06/21 Final result Normal [facility] XR HIP 2-3 VW W PELVIS RIGHT [...] Alexander Jr., MD 01/23/21 Final result Normal [facility] XR HIP 2-3 VW W PELVIS RIGHT Ordered By: Eugene Michelle on 01-23-2021 Anatomic alignment internally fixed right hip fracture. [facility] Phone: EXAM: XR HIP 2-3 VW W [...] lesser trochanter unchanged. Overlying skin jose luis. [facility] Phone: Paul, pn Incoming Radiant Results From [employer] - 01/23/2021 11:29 AM EDT EXAM: XR [...] Anatomic alignment internally fixed right hip fracture. [facility] Phone: [facility] Phone: Cult,Bloodon 01-17-2021 Cult,Blood Specimen Description .BLOOD Special Requests 10 Culture NO GROWTH 6 DAYS Report Status FINAL 01/17/[address] [facility] Comment on above: Performed By: #### C DP, BMPX #### [facility] [address] [place] [address] Volunteer Services Supervisor: Darryl Granger MD COVID-19, RapidOrdered By: Barbara wray Back on 01-14-2021 SARS-CoV-2 (COVID-19) RNA MARTIN+probe Ql (Unsp spec) Not detected Not Detected [facility] Phone: Comment on above: Rapid NAAT: The [...] management decisions. Fact sheet for Healthcare Providers: https://www.fda.gov/media/191750/download Fact sheet for Patients: https://www.fda.gov/media/252153/download Methodology: Isothermal Nucleic Acid Amplification Specimen Description .NASOPHARYNGEAL SWAB [facility] Phone: [facility] Phone: Hemoglobin and hematocrit, b loodOrdered By: Aurelio Saldana on 01-14-2021 Hematocrit (Bld) [Volume fraction] 25.7 % Low 36 - 46 % [employer] [facility] [employer] Phone: Hemoglobin.gastrointes tinal spec 1 Ql (Stl) 8.3 g/dL Low 12.0 - 16.0 g/dL [facility] Phone: Interpretation and review of laboratory results Abnormal [facility] Phone: [facility] Phone: Hgb/Hcton 01-14-2021 Hematocrit (Bld) [Volume fraction] 25.7 % Low 36-[address] [facility] Comment on above: Performed By: #### H H #### [facility] [address] [place] [address] Volunteer Services Supervisor: Darryl Granger MD Hemoglobin (Bld) [Mass/Vol] 8.3 g/dL Low 12.0-16.[address] [facility] Comment on above: Performed By: #### H H #### [facility] [address] [place] [address] Volunteer Services Supervisor: Darryl Granger MD [id number] 01-14-2021 SARS-CoV-2 (COVID-19) RNA MARTIN+probe Ql (Unsp spec) Not detected Normal [facility] Comment on above: Result Comment: Rapid [...] management decisions. Fact sheet for Healthcare Providers: https://www.fda.gov/media/709272/download Fact sheet for Patients: https://www.fda.gov/media/986704/download Methodology: Isothermal Nucleic Acid Amplification Performed By: #### C DP, BMPX #### [facility] [address] [place] [address] Volunteer Services Supervisor: Darryl Granger MD Basic Metabolic PanelOrdered By: Aurelio Saldana on 01-13-2021 Anion gap [Moles/Vol] 3 mmol/L Low 9 - 17 mmol/L [facility] [email or web address] Phone: Calcium [Mass/Vol] 8.3 mg/dL Low 8.6 - 10. 4 mg/dL [facility] Phone: Chloride [Moles/Vol] 101 mmol/L 98 - 10 7 mmol/L [facility] Phone: CO2 [Moles/Vol] 31 mmol/L 20 - 31 mmol/L [facility] Phone: Creatinine [Mass/Vol] 1.11 mg/dL High 0.50 - 0.90 mg/dL [facility] Phone: GFR 59 mL/min Low >60 [employer] Phone: GFR Non- 48 mL/min Low >60 [facility] Phone: GFR/1.73 sq M.predicted MDRD (S/P/Bld) [Vol rate/Area] [facility] Phone: Comment on above: Average GFR for 70 o r more years old: 75 mL/min/1.73sq m Chronic Kidney Disease: <60 mL/min/1.73sq m Kidney failure: <15 mL/min/1.73sq m eGFR calculated using average adult body mass. Additional eGFR calculator available at: http://www.LurnQ/multiple_crcl_2012.htm GFR/1.73 sq M.predicted MDRD (S/P/Bld) [Vol rate/Area] NOT REPORTED [facility] Phone: Glucose [Mass/Vol] 104 mg/dL High 70 - 99 mg/dL [facility] Phone: Interpretation and review of laboratory results Abnormal [facility] Phone: Potassium [Moles/Vol] 4.8 mmol/L 3.7 - 5.3 mmol/L [facility] Phone: Sodium [Moles/Vol] 135 mmol/L 135 - 144 mmol/L [facility] Phone: Urea nitrogen (BldV) [Mass/Vol] 16 mg/dL 8 - 23 mg/dL [facility] Phone: Urea nitrogen/Creatinine (Bld) [Mass ratio] 14 [facility] Phone: [facility] Phone: Basic Metabolic Profon 01-13 (cont.) Normal [facility] Comment on above: Result Comment: Aver age GFR for 70 or more years old: 75 mL/min/1.73sq m Chronic Kidney Disease: <60 mL/min/1.73sq m Kidney failure: <15 mL/min/1.73sq m eGFR calculated using average adult body mass. Additional eGFR calculator available at: http://www.LurnQ/multiple_crcl_2012.htm Performed By: #### C DP, BMP #### [facility] [address] [place] [address] Volunteer Services Supervisor: Darryl Granger MD Anion gap [Moles/Vol] 3 mmol/L Low 9-17 [facility] Comment on above: Performed By: #### C DP, BMP #### [facility] [address] [place] [address] Volunteer Services Supervisor: Darryl Granger MD BUN/CRE Ratio 14 Normal 9-20 [facility] Comment on above: Performed By: #### C DP, BMP #### [facility] [address] [place], [place] [phone] Volunteer Services Supervisor: Darryl Granger MD Calcium [Mass/Vol] 8.3 mg/dL Low 8.6-10.[address] [facility] Comment on above: Performed By: #### C DP, BMP #### [facility] [address] [place], [place] [phone] Volunteer Services Supervisor: Darryl Granger MD Chloride [Moles/Vol] 101 mmol/L Normal 98-107 [facility] Comment on above: Performed By: #### C DP, BMP #### [facility] [address] [place], [place] [phone] Volunteer Services Supervisor: Darryl Granger MD CO2 [Moles/Vol] 31 mmol/L Normal 20-31 [facility] Comment on above: Performed By: #### C DP, BMP #### [facility] [address] [place], [place] [phone] Volunteer Services Supervisor: Darryl Granger MD Creatinine [Mass/Vol] 1.11 mg/dL High 0.50-0.90 [facility] Comment on above: Performed By: #### C DP, BMP #### [facility] [address] [place], [place] [phone] Volunteer Services Supervisor: Darryl Granger MD GFR, Amer 59 mL/min Low >60 [facility] Comment on above: Performed By: #### C DP, BMP #### [facility] [address] [place] [address] Volunteer Services Supervisor: Darryl Granger MD GFR,non Amer 48 mL/min Low >60 [facility] Comment on above: Performed By: #### C DP, BMP #### [facility] [address] [place] [address] Volunteer Services Supervisor: Darryl Granger MD Glucose [Mass/Vol] 104 mg/dL High 70-[address] [facility] Comment on above: Performed By: #### C DP, BMP #### [facility] [address] [place] [address] Volunteer Services Supervisor: Darryl Granger MD Potassium [Moles/Vol] 4.8 mmol/L Normal 3.7-5.3 [facility] Comment on above: Performed By: #### C DP, BMP #### [facility] [address] [place] [address] Volunteer Services Supervisor: Darryl Granger MD Sodium [Moles/Vol] 135 mmol/L Normal 135-[address] [facility] Comment on above: Performed By: #### C DP, BMP #### [facility] [address] [place] [address] Volunteer Services Supervisor: Darryl Granger MD Urea nitrogen [Mass/Vol] 16 mg/dL Normal 8-[address] [facility] Comment on above: Performed By: #### C DP, BMP #### [facility] [address] [place] [address] Volunteer Services Supervisor: Darryl Granger MD Staging: NOT REPORTED Normal [facility] Comment on above: Performed By: #### C DP, BMP #### [facility] [address] [place] [address] Volunteer Services Supervisor: Darryl Granger MD CBC Auto DifferentialOrdered By: Aurelio Saldana on 01-13-2021 [employer] # 0.10 [facility] Work Phone: Absolute Immature Granulocyte NOT REPORTED [facility] Work Phone: Absolute Lymph # 1.10 [facility] Work Phone: [facility] [place] # 0.70 [facility] Work Phone: Basophils (Bld) [#/Vol] 0.00 10*3/uL [facility] [employer] Work Phone: Basophils/100 WBC (Bld) 0 % 0 - 2 % [facility] [employer] Work Phone: Differential Type YES [facility] Work Phone: Eosinophils/100 WBC (Bld) 1 % 0 - 5 % [facility] [employer] Work Phone: Hematocrit (Bld) [Volume fraction] 25.3 % Low 36 - 46 % [facility] [employer] Work Phone: Hemoglobin.gastrointes tinal spec 1 Ql (Stl) 8.3 g/dL Low 12.0 - 16.0 g/dL [facility] [employer] Work Phone: Immature Granulocytes NOT REPORTED 0 % M [facility] [employer] Work Phone: Interpretation and review of laboratory results Abnormal [facility] [employer] Work Phone: Lymphocytes/100 WBC (Bld) 13 % Low 15 - 40 % [facility] Work Phone: MCH (RBC) [Entitic mass] 27.4 pg 26 - 34 pg [employer] Work Phone: MCHC (RBC) [Mass/Vol] 32.9 g/dL 31 - 37 g/dL M [facility] [employer] Work Phone: MCV (RBC) [Entitic vol] 83.5 fL 80 - 100 fL [employer] Work Phone: Monocytes/100 WBC (Bld) 9 % High 4 - 8 % [employer] Work Phone: NRBC Automated NOT REPORTED per 100 WBC [employer] Work Phone: Platelet distribution width (Bld) [Ratio] 18.7 % High 12.1 - 15.2 % [facility] Phone: Platelet Estimate NOT REPORTED [facility] Phone: Platelet mean volume (Bld) [Entitic vol] NOT REPORTED 6.0 - 12.0 fL [employer] Work Phone: Platelets (Bld) [#/Vol] 124 10*3/uL Low [facility] Phone: RBC (Bld) [#/Vol] 3.03 10*6/uL Low 4.0 - 5.2 m/uL [facility] Phone: RBC (Bld) [#/Vol] NOT REPORTED [facility] Phone: Segmented neutrophils/100 WBC (Bld) 77 % High 47 - 75 % [employer] Work Phone: Segs Absolute 6.60 [employer] [facility] [employer] Work Phone: WBC (Bld) [#/Vol] 8.4 10*3/uL [employer] Work Phone: WBC (Bld) [#/Vol] NOT REPORTED [facility] Phone: [employer] Work Phone: CBC with Diffon 01-13-2021 Abs. Basophil 0.00 k/uL Normal 0.0-0.2 [facility] Comment on above: Performed By: #### C DP, BMP #### [facility] [address] [place] [phone] Volunteer Services Supervisor: Darryl Granger MD Abs.Neutrophil (Seg) 6.60 k/uL Normal 2.5-7.0 [facility] Comment on above: Performed By: #### C DP, BMP #### [facility] [address] [place] [address] Volunteer Services Supervisor: Darryl Granger MD Auto Diff Performed YES Normal [facility] Comment on above: Performed By: #### C DP, BMP #### [facility] [address] [place] [address] Volunteer Services Supervisor: Darryl Granger MD Basophils/100 WBC (Bld) 0 % Normal 0-[address] [facility] Comment on above: Performed By: #### C DP, BMP #### [facility] [address] [place] [phone] Volunteer Services Supervisor: Darryl Granger MD Eosinophils (Bld) [#/Vol] 0.10 10*3/uL Normal 0.0-0.[address] [facility] Comment on above: Performed By: #### C DP, BMP #### [facility] [address] [place] [phone] Volunteer Services Supervisor: Darryl Granger MD Eosinophils/100 WBC (Bld) 1 % Normal 0-[address] [facility] Comment on above: Performed By: #### C DP, BMP #### [facility] [address] [place] [address] Volunteer Services Supervisor: Darryl Granger MD Erythrocyte distribution width (RBC) [Ratio] 18.7 % High 12.1-15.[address] [facility] Comment on above: Performed By: #### C DP, BMP #### [facility] [address] [place] [phone] Volunteer Services Supervisor: Darryl Granger MD Hematocrit (Bld) [Volume fraction] 25.3 % Low 36-[address] [facility] Comment on above: Performed By: #### C DP, BMP #### [facility] [address] [place], [place] [phone] Volunteer Services Supervisor: Darryl Granger MD Hemoglobin (Bld) [Mass/Vol] 8.3 g/dL Low 12.0-16.[address] [facility] Comment on above: Performed By: #### C DP, BMP #### [facility] [address] [place] [address] Volunteer Services Supervisor: Darryl Granger MD Lymphocytes (Bld) [#/Vol] 1.10 10*3/uL Normal 1.0-4.[address] [facility] Comment on above: Performed By: #### C DP, BMP #### [facility] [address] [place] [address] Volunteer Services Supervisor: Darryl Granger MD Lymphocytes/100 WBC (Bld) 13 % Low 15-[address] [facility] Comment on above: Performed By: #### C DP, BMP #### [facility] [address] [place] [address] Volunteer Services Supervisor: Darryl Granger MD MCH (RBC) [Entitic mass] 27.4 pg Normal 26-[address] [facility] Comment on above: Performed By: #### C DP, BMP #### [facility] [address] [place], [place] [phone] Volunteer Services Supervisor: Darryl Granger MD MCHC (RBC) [Mass/Vol] 32.9 g/dL Normal 31-37 [facility] Comment on above: Performed By: #### C DP, BMP #### [facility] [address] [place] [address] Volunteer Services Supervisor: Darryl Granger MD MCV (RBC) [Entitic vol] 83.5 fL Normal 80-[address] [facility] Comment on above: Performed By: #### C DP, BMP #### [facility] [address] [place] [address] Volunteer Services Supervisor: Darryl Granger MD Monocytes (Bld) [#/Vol] 0.70 10*3/uL Normal 0.0-1.[address] [facility] Comment on above: Performed By: #### C DP, BMP #### [facility] [address] [place] [address] ([phone] Volunteer Services Supervisor: Darryl Granger MD Monocytes/100 WBC (Bld) 9 % High 4-[address] [facility] Comment on above: Performed By: #### C DP, BMP #### [facility] [address] [place], [place] [phone] ([phone] Volunteer Services Supervisor: Darryl Granger MD Neutrophil (Seg) 77 % High 47-75 [facility] Comment on above: Performed By: #### C DP, BMP #### [facility] [address] [place] [address] ([phone] Volunteer Services Supervisor: Darryl Granger MD Platelets (Bld) [#/Vol] 124 10*3/uL Low 140-[address] [facility] Comment on above: Performed By: #### C DP, BMP #### [facility] [address] [place] [address] Volunteer Services Supervisor: Darryl Granger MD RBC (Bld) [#/Vol] 3.03 10*6/uL Low 4.0-5.[address] [facility] Comment on above: Performed By: #### C DP, BMP #### [facility] [address] [place] [address] Volunteer Services Supervisor: Darryl Granger MD WBC (Bld) [#/Vol] 8.4 10*3/uL Normal 3.5-11.[address] [facility] Comment on above: Performed By: #### C DP, BMP #### [facility] [address] [place], [place] [phone] Volunteer Services Supervisor: Darryl Granger MD Abs.Imm.Granulocyte NOT REPORTED Normal 0.00-0.30 [facility] Comment on above: Performed By: #### C DP, BMP #### [facility] [address] [place] [phone] Volunteer Services Supervisor: Darryl Granger MD Immature Granulocyte NOT REPORTED Normal 0 [facility] Comment on above: Performed By: #### C DP, BMP #### [facility] [address] [place] [phone] Volunteer Services Supervisor: Darryl Granger MD MPV NOT REPORTED Normal 6.0-12.0 [facility] Comment on above: Performed By: #### C DP, BMP #### [facility] [address] [place] [phone] Volunteer Services Supervisor: Darryl Granger MD NRBC Automated NOT REPORTED Normal [facility] Comment on above: Performed By: #### C DP, BMP #### [facility] [address] [place] [phone] Volunteer Services Supervisor: Darryl Granger MD Platelet Estimate NOT REPORTED Normal [facility] Comment on above: Performed By: #### C DP, BMP #### [facility] [address] [place] [phone] Volunteer Services Supervisor: Darryl Granger MD RBC morphology finding Nom (Bld) NOT REPORTED Normal [facility] Comment on above: Performed By: #### C DP, BMP #### [facility] [address] [place] [phone] Volunteer Services Supervisor: Darryl Granger MD WBC Morphology NOT REPORTED Normal [facility] Comment on above: Performed By: #### C DP, BMP #### [facility] [address] [place] [address] Volunteer Services Supervisor: Darryl Granger MD Basic Metabolic PanelOrdered By: Aurelio Saldana on 01-12-2021 Anion gap [Moles/Vol] 5 mmol/L Low 9 - 17 mmol/L [facility] Phone: Calcium [Mass/Vol] 8.2 mg/dL Low 8.6 - 10. 4 mg/dL [facility] Phone: Chloride [Moles/Vol] 104 mmol/L 98 - 10 7 mmol/L [facility] Phone: CO2 [Moles/Vol] 26 mmol/L 20 - 31 mmol/L [facility] Phone: Creatinine [Mass/Vol] 1.18 mg/dL High 0.50 - 0.90 mg/dL [facility] Phone: GFR 55 mL/min Low >60 [employer] Phone: GFR Non- 45 mL/min Low >60 [facility] Phone: GFR/1.73 sq M.predicted MDRD (S/P/Bld) [Vol rate/Area] [facility] Phone: Comment on above: Average GFR for 70 o r more years old: 75 mL/min/1.73sq m Chronic Kidney Disease: <60 mL/min/1.73sq m Kidney failure: <15 mL/min/1.73sq m eGFR calculated using average adult body mass. Additional eGFR calculator available at: http://www.[employer].Leadjini/multiple_crcl_2012.htm GFR/1.73 sq M.predicted MDRD (S/P/Bld) [Vol rate/Area] NOT REPORTED [facility] Phone: Glucose [Mass/Vol] 97 mg/dL 70 - 99 mg/dL [facility] Phone: Interpretation and review of laboratory results Abnormal [facility] Phone: Potassium [Moles/Vol] 4.6 mmol/L 3.7 - 5.3 mmol/L [facility] [email or web address] Phone: Sodium [Moles/Vol] 135 mmol/L 135 - 144 mmol/L [facility] Phone: Urea nitrogen (BldV) [Mass/Vol] 18 mg/dL 8 - 23 mg/dL [facility] [email or web address] Phone: Urea nitrogen/Creatinine (Bld) [Mass ratio] 15 [facility] Phone: [facility] Phone: Basic Metabolic Profon 01-12 (cont.) Normal [facility] Comment on above: Result Comment: Aver age GFR for 70 or more years old: 75 mL/min/1.73sq m Chronic Kidney Disease: <60 mL/min/1.73sq m Kidney failure: <15 mL/min/1.73sq m eGFR calculated using average adult body mass. Additional eGFR calculator available at: http://www.LurnQ/multiple_crcl_2012.htm Performed By: #### C ALLYSON BMPX #### [facility] [address] [place] [address] Volunteer Services Supervisor: Darryl Granger MD Anion gap [Moles/Vol] 5 mmol/L Low 9-17 [facility] Comment on above: Performed By: #### C DP, BMPX #### [facility] [address] [place] [address] Volunteer Services Supervisor: Darryl Granger MD BUN/CRE Ratio 15 Normal 9-20 [facility] Comment on above: Performed By: #### C DP, BMPX #### [facility] [address] [place] [address] Volunteer Services Supervisor: Darryl Granger MD Calcium [Mass/Vol] 8.2 mg/dL Low 8.6-10.[address] [facility] Comment on above: Performed By: #### C DP, BMPX #### [facility] [address] [place], [place] [phone] Volunteer Services Supervisor: Darryl Granger MD Chloride [Moles/Vol] 104 mmol/L Normal 98-107 [facility] Comment on above: Performed By: #### C DP, BMPX #### [facility] [address] [place] [address] Volunteer Services Supervisor: Darryl Granger MD CO2 [Moles/Vol] 26 mmol/L Normal 20-31 [facility] Comment on above: Performed By: #### C DP, BMPX #### [facility] [address] [place] [address] Volunteer Services Supervisor: Darryl Granger MD Creatinine [Mass/Vol] 1.18 mg/dL High 0.50-0.90 [facility] Comment on above: Performed By: #### C DP, BMPX #### [facility] [address] [place], [place] [phone] Volunteer Services Supervisor: Darryl Granger MD GFR, Amer 55 mL/min Low >60 [facility] Comment on above: Performed By: #### C DP, BMPX #### [facility] [address] [place] [address] Volunteer Services Supervisor: Darryl Granger MD GFR,non Amer 45 mL/min Low >60 [facility] Comment on above: Performed By: #### C DP, BMPX #### [facility] [address] [place], [place] [phone] Volunteer Services Supervisor: Darryl Granger MD Glucose [Mass/Vol] 97 mg/dL Normal 70-[address] [facility] Comment on above: Performed By: #### C DP, BMPX #### [facility] [address] [place], [place] [phone] Volunteer Services Supervisor: Darryl Granger MD Potassium [Moles/Vol] 4.6 mmol/L Normal 3.7-5.3 [facility] Comment on above: Performed By: #### C DP, BMPX #### [facility] [address] [place], [place] [phone] Volunteer Services Supervisor: Darryl Granger MD Sodium [Moles/Vol] 135 mmol/L Normal 135-[address] [facility] Comment on above: Performed By: #### C DP, BMPX #### [facility] [address] [place], [place] [phone] Volunteer Services Supervisor: Darryl Granger MD Urea nitrogen [Mass/Vol] 18 mg/dL Normal 8-[address] [facility] Comment on above: Performed By: #### C DP, BMPX #### [facility] [address] [place], [place] [phone] Volunteer Services Supervisor: Darryl Granger MD Staging: NOT REPORTED Normal [facility] Comment on above: Performed By: #### C DP, BMPX #### [facility] [address] [place], [place] [address] Volunteer Services Supervisor: Darryl Granger MD CBC Auto DifferentialOrdered By: Aurelio Saldana on 01-12-2021 [employer] # 0.00 [facility] Work Phone: Absolute Immature Granulocyte NOT REPORTED [facility] Work Phone: Absolute Lymph # 1.20 [facility] Work Phone: Absolute [place] # 0.90 [facility] Work Phone: Basophils (Bld) [#/Vol] 0.00 10*3/uL [facility] Work Phone: Basophils/100 WBC (Bld) 0 % 0 - 2 % [facility] Work Phone: Differential Type YES [facility] Work Phone: Eosinophils/100 WBC (Bld) 0 % 0 - 5 % [facility] Phone: Hematocrit (Bld) [Volume fraction] 26.5 % Low 36 - 46 % [facility] Phone: Hemoglobin.gastrointes tinal spec 1 Ql (Stl) 8.8 g/dL Low 12.0 - 16.0 g/dL [facility] Phone: Immature Granulocytes NOT REPORTED 0 % M [employer] Phone: Interpretation and review of laboratory results Abnormal [facility] Phone: Lymphocytes/100 WBC (Bld) 11 % Low 15 - 40 % [facility] Phone: MCH (RBC) [Entitic mass] 27.3 pg 26 - 34 pg [facility] Phone: MCHC (RBC) [Mass/Vol] 33.2 g/dL 31 - 37 g/dL M [employer] Phone: MCV (RBC) [Entitic vol] 82.2 fL 80 - 100 fL [facility] Phone: Monocytes/100 WBC (Bld) 8 % 4 - 8 % [facility] Phone: NRBC Automated NOT REPORTED per 100 WBC [facility] Work Phone: Platelet distribution width (Bld) [Ratio] 18.7 % High 12.1 - 15.2 % [facility] Phone: Platelet Estimate NOT REPORTED [facility] Phone: Platelet mean volume (Bld) [Entitic vol] NOT REPORTED 6.0 - 12.0 fL [facility] Phone: Platelets (Bld) [#/Vol] 114 10*3/uL Low [facility] Phone: RBC (Bld) [#/Vol] 3.23 10*6/uL Low 4.0 - 5.2 m/uL [facility] Phone: RBC (Bld) [#/Vol] NOT REPORTED [facility] Phone: Segmented neutrophils/100 WBC (Bld) 81 % High 47 - 75 % [facility] Work Phone: Segs Absolute 8.90 High [facility] [employer] Work Phone: WBC (Bld) [#/Vol] 10.9 10*3/uL [employer] Work Phone: WBC (Bld) [#/Vol] NOT REPORTED [facility] Phone: [facility] Phone: CBC with Diffon 01-12-2021 Abs. Basophil 0.00 k/uL Normal 0.0-0.2 [facility] Comment on above: Performed By: #### C DP, BMPX #### [facility] [address] [place] [phone] [employer]er Services Supervisor: Darryl Granger MD Abs.Neutrophil (Seg) 8.90 k/uL High 2.5-7.0 [facility] Comment on above: Performed By: #### C DP, BMPX #### [facility] [address] [place], [place] [phone] Volunteer Services Supervisor: Darryl Granger MD Auto Diff Performed YES Normal [facility] Comment on above: Performed By: #### C DP, BMPX #### [facility] [address] [phone] Volunteer Services Supervisor: Darryl Granger MD Basophils/100 WBC (Bld) 0 % Normal 0-[address] [facility] Comment on above: Performed By: #### C DP, BMPX #### [facility] [address] [phone] Volunteer Services Supervisor: Darryl Granger MD Eosinophils (Bld) [#/Vol] 0.00 10*3/uL Normal 0.0-0.[address] [facility] Comment on above: Performed By: #### C DP, BMPX #### [facility] [address] [place] [address] Volunteer Services Supervisor: Darryl Granger MD Eosinophils/100 WBC (Bld) 0 % Normal 0-[address] [facility] Comment on above: Performed By: #### C DP, BMPX #### [facility] [address] [phone] [employer]er Services Supervisor: Darryl Granger MD Erythrocyte distribution width (RBC) [Ratio] 18.7 % High 12.1-15.[address] [facility] Comment on above: Performed By: #### C DP, BMPX #### [facility] [address] [phone] Volunteer Services Supervisor: Darryl Granger MD Hematocrit (Bld) [Volume fraction] 26.5 % Low 36-[address] [facility] Comment on above: Performed By: #### C DP, BMPX #### [facility] [address] [place] [address] Volunteer Services Supervisor: Darryl Granger MD Hemoglobin (Bld) [Mass/Vol] 8.8 g/dL Low 12.0-16.[address] [facility] Comment on above: Performed By: #### C DP, BMPX #### [facility] [address] [place] [address] Volunteer Services Supervisor: Darryl Granger MD Lymphocytes (Bld) [#/Vol] 1.20 10*3/uL Normal 1.0-4.[address] [facility] Comment on above: Performed By: #### C DP, BMPX #### [facility] [address] [place] [address] Volunteer Services Supervisor: Darryl Granger MD Lymphocytes/100 WBC (Bld) 11 % Low 15-[address] [facility] Comment on above: Performed By: #### C DP, BMPX #### [facility] [address] [place], [place] [phone] Volunteer Services Supervisor: Darryl Granger MD MCH (RBC) [Entitic mass] 27.3 pg Normal 26-[address] [facility] Comment on above: Performed By: #### C DP, BMPX #### [facility] [address] [place], [place] [phone] ([phone] Volunteer Services Supervisor: Darryl Granger MD MCHC (RBC) [Mass/Vol] 33.2 g/dL Normal 31-37 [facility] Comment on above: Performed By: #### C DP, BMPX #### [facility] [address] [place] [address] Volunteer Services Supervisor: Darryl Granger MD MCV (RBC) [Entitic vol] 82.2 fL Normal 80-[address] [facility] Comment on above: Performed By: #### C DP, BMPX #### [facility] [address] [place], [place] [phone] Volunteer Services Supervisor: Darryl Granger MD Monocytes (Bld) [#/Vol] 0.90 10*3/uL Normal 0.0-1.[address] [facility] Comment on above: Performed By: #### C DP, BMPX #### [facility] [address] [place], [place] [phone] ([phone] Volunteer Services Supervisor: Darryl Granger MD Monocytes/100 WBC (Bld) 8 % Normal 4-[address] [facility] Comment on above: Performed By: #### C DP, BMPX #### [facility] [address] [place] [address] [phone] Volunteer Services Supervisor: Darryl Granger MD Neutrophil (Seg) 81 % High 47-75 [facility] Comment on above: Performed By: #### C DP, BMPX #### [facility] [address] [phone] Volunteer Services Supervisor: Darryl Granger MD Platelets (Bld) [#/Vol] 114 10*3/uL Low 140-[address] [facility] Comment on above: Performed By: #### C DP, BMPX #### [facility] [address] [place], [place] [phone] Volunteer Services Supervisor: Darryl Granger MD RBC (Bld) [#/Vol] 3.23 10*6/uL Low 4.0-5.[address] [facility] Comment on above: Performed By: #### C DP, BMPX #### [facility] [address] [place] [address] Volunteer Services Supervisor: Darryl Granger MD WBC (Bld) [#/Vol] 10.9 10*3/uL Normal 3.5-11.[address] [facility] Comment on above: Performed By: #### C DP, BMPX #### [facility] [address] [place], [place] [phone] Volunteer Services Supervisor: Darryl Granger MD Abs.Imm.Granulocyte NOT REPORTED Normal 0.00-0.30 [facility] Comment on above: Performed By: #### C DP, BMPX #### [facility] [address] [place] [address] Volunteer Services Supervisor: Darryl Granger MD Immature Granulocyte NOT REPORTED Normal 0 [facility] Comment on above: Performed By: #### C DP, BMPX #### [facility] [address] [place], [place] [phone] Volunteer Services Supervisor: Darryl Granger MD MPV NOT REPORTED Normal 6.0-12.0 [facility] Comment on above: Performed By: #### C DP, BMPX #### [facility] [address] [place], [place] [phone] Volunteer Services Supervisor: Darryl Granger MD NRBC Automated NOT REPORTED Normal [facility] Comment on above: Performed By: #### C DP, BMPX #### [facility] [address] [place], [place] [phone] Volunteer Services Supervisor: Darryl Granger MD Platelet Estimate NOT REPORTED Normal [facility] Comment on above: Performed By: #### C DP, BMPX #### [facility] [address] [place], [place] [phone] Volunteer Services Supervisor: Darryl Granger MD RBC morphology finding Nom (Bld) NOT REPORTED Normal [facility] Comment on above: Performed By: #### C DP, BMPX #### [facility] [address] [place], [place] [phone] Volunteer Services Supervisor: Darryl Granger MD WBC Morphology NOT REPORTED Normal [facility] Comment on above: Performed By: #### C DP, BMPX #### [facility] [address] [place], [place] [phone] Volunteer Services Supervisor: Darryl Granger MD Basic Metabolic PanelOrdered By: Eugene Michelle on 01-11-2021 Anion gap [Moles/Vol] 3 mmol/L Low 9 - 17 mmol/L [facility] Phone: Calcium [Mass/Vol] 7.9 mg/dL Low 8.6 - 10. 4 mg/dL [facility] Phone: Chloride [Moles/Vol] 108 mmol/L High 98 - 10 7 mmol/L [facility] Phone: CO2 [Moles/Vol] 26 mmol/L 20 - 31 mmol/L [facility] Phone: Creatinine [Mass/Vol] 1.35 mg/dL High 0.50 - 0.90 mg/dL [facility] Phone: GFR 47 mL/min Low >60 [employer] Phone: GFR Non- 39 mL/min Low >60 [facility] Phone: GFR/1.73 sq M.predicted MDRD (S/P/Bld) [Vol rate/Area] [facility] Phone: Comment on above: Average GFR for 70 o r more years old: 75 mL/min/1.73sq m Chronic Kidney Disease: <60 mL/min/1.73sq m Kidney failure: <15 mL/min/1.73sq m eGFR calculated using average adult body mass. Additional eGFR calculator available at: http://www.LurnQ/C3 Metrics_crcl_2011.htm GFR/1.73 sq M.predicted MDRD (S/P/Bld) [Vol rate/Area] NOT REPORTED [facility] Phone: Glucose [Mass/Vol] 102 mg/dL High 70 - 99 mg/dL [facility] Phone: Interpretation and review of laboratory results Abnormal [facility] Phone: Potassium [Moles/Vol] 4.8 mmol/L 3.7 - 5.3 mmol/L [facility] Phone: Sodium [Moles/Vol] 137 mmol/L 135 - 144 mmol/L [facility] Phone: Urea nitrogen (BldV) [Mass/Vol] 19 mg/dL 8 - 23 mg/dL [facility] Phone: Urea nitrogen/Creatinine (Bld) [Mass ratio] 14 [facility] Phone: Basic Metabolic Profon 01-11 (cont.) Normal [facility] Comment on above: Result Comment: Aver age GFR for 70 or more years old: 75 mL/min/1.73sq m Chronic Kidney Disease: <60 mL/min/1.73sq m Kidney failure: <15 mL/min/1.73sq m eGFR calculated using average adult body mass. Additional eGFR calculator available at: http://www.LurnQ/C3 Metrics_crcl_2011.htm Performed By: #### H H #### [facility] [address] [place], [place] [phone] Volunteer Services Supervisor: Darryl Granger MD Anion gap [Moles/Vol] 3 mmol/L Low 9-17 [facility] Comment on above: Performed By: #### H H #### [facility] [address] [place], [place] [phone] Volunteer Services Supervisor: Darryl Granger MD BUN/CRE Ratio 14 Normal 9-20 [facility] Comment on above: Performed By: #### H H #### [facility] [address] [place], [place] [phone] Volunteer Services Supervisor: Darryl Granger MD Calcium [Mass/Vol] 7.9 mg/dL Low 8.6-10.[address] [facility] Comment on above: Performed By: #### H H #### [facility] [address] [place], [place] [phone] Volunteer Services Supervisor: Darryl Granger MD Chloride [Moles/Vol] 108 mmol/L High 98-107 [facility] Comment on above: Performed By: #### H H #### [facility] [address] [place], [place] [phone] Volunteer Services Supervisor: Darryl Granger MD CO2 [Moles/Vol] 26 mmol/L Normal 20-31 [facility] Comment on above: Performed By: #### H H #### [facility] [address] [place], [place] [phone] Volunteer Services Supervisor: Darryl Granger MD Creatinine [Mass/Vol] 1.35 mg/dL High 0.50-0.90 [facility] Comment on above: Performed By: #### H H #### [facility] [address] [place], [place] [phone] Volunteer Services Supervisor: Darryl Granger MD GFR, Amer 47 mL/min Low >60 [facility] Comment on above: Performed By: #### H H #### [facility] [address] [place], [place] [phone] Volunteer Services Supervisor: Darryl Granger MD GFR,non Amer 39 mL/min Low >60 [facility] Comment on above: Performed By: #### H H #### [facility] [address] [place], [place] [phone] Volunteer Services Supervisor: Darryl Granger MD Glucose [Mass/Vol] 102 mg/dL High 70-[address] [facility] Comment on above: Performed By: #### H H #### [facility] [address] [place], [place] [phone] Volunteer Services Supervisor: Darryl Granger MD Potassium [Moles/Vol] 4.8 mmol/L Normal 3.7-5.3 [facility] Comment on above: Performed By: #### H H #### [facility] [address] [place], [place] [phone] Volunteer Services Supervisor: Darryl Granger MD Sodium [Moles/Vol] 137 mmol/L Normal 135-[address] [facility] Comment on above: Performed By: #### H H #### [facility] [address] [place], [place] [phone] Volunteer Services Supervisor: Darryl Granger MD Urea nitrogen [Mass/Vol] 19 mg/dL Normal 8-[address] [facility] Comment on above: Performed By: #### H H #### [facility] [address] [place], [place] [phone] Volunteer Services Supervisor: Darryl Granger MD Staging: NOT REPORTED Normal [facility] Comment on above: Performed By: #### H H #### [facility] [address] [place], [place] [phone] Volunteer Services Supervisor: Darryl Granger MD CBCon 01-11-2021 Erythrocyte distribution width (RBC) [Ratio] 19.5 % High 12.1-15.[address] [facility] Comment on above: Performed By: #### C DINESH, LACDS #### [facility] [address] [place], [place] [phone] Volunteer Services Supervisor: Darryl Granger MD Hematocrit (Bld) [Volume fraction] 26.9 % Low 36-[address] [facility] Comment on above: Performed By: #### C DINESH, LACDS #### [facility] [address] [place], [place] [phone] Volunteer Services Supervisor: Darryl Granger MD Hemoglobin (Bld) [Mass/Vol] 9.0 g/dL Low 12.0-16.[address] [facility] Comment on above: Performed By: #### C DINESH LACDS #### [facility] [address] [place] [address] Volunteer Services Supervisor: Darryl Granger MD MCH (RBC) [Entitic mass] 27.5 pg Normal 26-[address] [facility] Comment on above: Performed By: #### C DINESH LACDS #### [facility] [address] [place] [address] Volunteer Services Supervisor: Darryl Granger MD MCHC (RBC) [Mass/Vol] 33.5 g/dL Normal 31-37 [facility] Comment on above: Performed By: #### C DINESH LACDS #### [facility] [address] [place] [phone] Volunteer Services Supervisor: Darryl Granger MD MCV (RBC) [Entitic vol] 82.2 fL Normal 80-[address] [facility] Comment on above: Performed By: #### C DINEHS LACDS #### [facility] [address] [place] [address] Volunteer Services Supervisor: Darryl Granger MD Platelets (Bld) [#/Vol] 109 10*3/uL Low 140-[address] [facility] Comment on above: Performed By: #### C DINESH, LACDS #### [facility] [address] [place], [place] [phone] Volunteer Services Supervisor: Darryl Granger MD RBC (Bld) [#/Vol] 3.27 10*6/uL Low 4.0-5.[address] [facility] Comment on above: Performed By: #### C BC, LACDS #### [facility] [address] [place], [place] [phone] Volunteer Services Supervisor: Darryl Granger MD WBC (Bld) [#/Vol] 12.1 10*3/uL High 3.5-11.[address] [facility] Comment on above: Performed By: #### C DINESH, LACDS #### [facility] [address] [place], [place] [phone] Volunteer Services Supervisor: Darryl Granger MD MPV NOT REPORTED Normal 6.0-12.0 [facility] Comment on above: Performed By: #### C DINESH, LACDS #### [facility] [address] [place] [address] Volunteer Services Supervisor: Darryl Granger MD NRBC Automated NOT REPORTED Normal [facility] Comment on above: Performed By: #### C DINESH, LACDS #### [facility] [address] [place] [address] Volunteer Services Supervisor: Darryl Granger MD CBCOrdered By: Isaias thomas on 01-11-2021 Hematocrit (Bld) [Volume fraction] 26.9 % Low 36 - 46 % [facility] [employer] Phone: Hemoglobin.gastrointes tinal spec 1 Ql (Stl) 9.0 g/dL Low 12.0 - 16.0 g/dL [facility] [employer] Phone: Interpretation and review of laboratory results Abnormal [facility] Phone: MCH (RBC) [Entitic mass] 27.5 pg 26 - 34 pg [facility] Work Phone: MCHC (RBC) [Mass/Vol] 33.5 g/dL 31 - 37 g/dL M [facility] [employer] Work Phone: MCV (RBC) [Entitic vol] 82.2 fL 80 - 100 fL [facility] [employer] Work Phone: NRBC Automated NOT REPORTED per 100 WBC [facility] [employer] Work Phone: Platelet distribution width (Bld) [Ratio] 19.5 % High 12.1 - 15.2 % [facility] [employer] Work Phone: Platelet mean volume (Bld) [Entitic vol] NOT REPORTED 6.0 - 12.0 fL [facility] [employer] Work Phone: Platelets (Bld) [#/Vol] 109 10*3/uL Low [facility] [employer] Work Phone: RBC (Bld) [#/Vol] 3.27 10*6/uL Low 4.0 - 5.2 m/uL [facility] [employer] Work Phone: WBC (Bld) [#/Vol] 12.1 10*3/uL High [facility] [employer] Work Phone: [facility] [employer] Work Phone: CBC Auto DifferentialOrdered By: Isaias Lowry on 01-11-2021 [employer] # 0.00 [facility] Work Phone: Absolute Immature Granulocyte NOT REPORTED [facility] [employer] Work Phone: Absolute Lymph # 1.50 [facility] Work Phone: [employer] [place] # 0.90 [facility] Work Phone: Basophils (Bld) [#/Vol] 0.00 10*3/uL [facility] [employer] Work Phone: Basophils/100 WBC (Bld) 0 % 0 - 2 % [facility] [employer] Work Phone: Differential Type NOT REPORTED [facility] [employer] Work Phone: Eosinophils/100 WBC (Bld) 0 % 0 - 5 % [facility] Phone: Hematocrit (Bld) [Volume fraction] 26.5 % Low 36 - 46 % [facility] Phone: Hemoglobin.gastrointes tinal spec 1 Ql (Stl) 8.9 g/dL Low 12.0 - 16.0 g/dL [facility] Phone: Immature Granulocytes NOT REPORTED 0 % M [employer] Work Phone: Interpretation and review of laboratory results Abnormal [facility] Phone: Lymphocytes/100 WBC (Bld) 12 % Low 15 - 40 % [facility] Phone: MCH (RBC) [Entitic mass] 27.5 pg 26 - 34 pg [facility] Phone: MCHC (RBC) [Mass/Vol] 33.5 g/dL 31 - 37 g/dL M [employer] Phone: MCV (RBC) [Entitic vol] 82.2 fL 80 - 100 fL [facility] Phone: Monocytes/100 WBC (Bld) 7 % 4 - 8 % [facility] Phone: Morphology Pramod (Bld) [Interp] SLIGHT DECREASED PLATELETS [facility] Phone: Morphology Pramod (Bld) [Interp] SLIGHT ANISOCYTOSIS [facility] Phone: NRBC Automated NOT REPORTED per 100 WBC [employer] [facility] Work Phone: Platelet distribution width (Bld) [Ratio] 19.3 % High 12.1 - 15.2 % [facility] Phone: Platelet Estimate NOT REPORTED [facility] Phone: Platelet mean volume (Bld) [Entitic vol] NOT REPORTED 6.0 - 12.0 fL [facility] Phone: Platelets (Bld) [#/Vol] 107 10*3/uL Low [employer] Work Phone: RBC (Bld) [#/Vol] 3.23 10*6/uL Low 4.0 - 5.2 m/uL [employer] Work Phone: RBC (Bld) [#/Vol] NOT REPORTED [employer] Work Phone: Segmented neutrophils/100 WBC (Bld) 81 % High 47 - 75 % [employer] Work Phone: Segs Absolute 10.30 High [employer] Work Phone: WBC (Bld) [#/Vol] 12.8 10*3/uL High [employer] Work Phone: WBC (Bld) [#/Vol] NOT REPORTED [employer] Work Phone: [employer] Work Phone: CBC Auto DifferentialOrdered By: Eugene Michelle on 01-11-2021 [employer]os # 0.00 [employer] Work Phone: Absolute Immature Granulocyte NOT REPORTED [employer] Work Phone: Absolute Lymph # 2.10 [employer] [facility] Work Phone: Absolute [place] # 0.90 [employer] [facility] Work Phone: Basophils (Bld) [#/Vol] 0.00 10*3/uL [employer] Work Phone: Basophils/100 WBC (Bld) 0 % 0 - 2 % [employer] Work Phone: Differential Type NOT REPORTED [employer] Work Phone: Eosinophils/100 WBC (Bld) 0 % 0 - 5 % [employer] Work Phone: Hematocrit (Bld) [Volume fraction] 27.6 % Low 36 - 46 % [employer] Work Phone: Hemoglobin.gastrointes tinal spec 1 Ql (Stl) 9.2 g/dL Low 12.0 - 16.0 g/dL [facility] Phone: Immature Granulocytes NOT REPORTED 0 % M [employer] Phone: Interpretation and review of laboratory results Abnormal [facility] Phone: Lymphocytes/100 WBC (Bld) 18 % 15 - 40 % [facility] Phone: MCH (RBC) [Entitic mass] 27.2 pg 26 - 34 pg [facility] Phone: MCHC (RBC) [Mass/Vol] 33.3 g/dL 31 - 37 g/dL M [employer] Phone: MCV (RBC) [Entitic vol] 81.8 fL 80 - 100 fL [facility] Phone: Monocytes/100 WBC (Bld) 8 % 4 - 8 % [facility] Phone: Morphology Pramod (Bld) [Interp] SLIGHT ANISOCYTOSIS [facility] Phone: NRBC Automated NOT REPORTED per 100 WBC [facility] Work Phone: Platelet distribution width (Bld) [Ratio] 19.4 % High 12.1 - 15.2 % [facility] Phone: Platelet Estimate NOT REPORTED [facility] Phone: Platelet mean volume (Bld) [Entitic vol] NOT REPORTED 6.0 - 12.0 fL [facility] Phone: Platelets (Bld) [#/Vol] 107 10*3/uL Low [facility] Phone: RBC (Bld) [#/Vol] 3.37 10*6/uL Low 4.0 - 5.2 m/uL [facility] Phone: RBC (Bld) [#/Vol] NOT REPORTED [facility] Phone: Segmented neutrophils/100 WBC (Bld) 74 % 47 - 75 % [employer] Work Phone: Segs Absolute 8.80 High [facility] Work Phone: WBC (Bld) [#/Vol] 11.8 10*3/uL High [facility] Work Phone: WBC (Bld) [#/Vol] NOT REPORTED [facility] Phone: [employer] Work Phone: CBC with Diffon 01-11-2021 Morphology Pramod (Bld) [Interp] SLIGHT Normal [facility] Comment on above: Result Comment: DECR EASED PLATELETS SLIGHT ANISOCYTOSIS Performed By: #### C DP #### [facility] [address] [place] [address] Volunteer Services Supervisor: Darryl Granger MD Abs. Basophil 0.00 k/uL Normal 0.0-0.2 [facility] Comment on above: Performed By: #### C DP #### [facility] [address] [place] [address] Volunteer Services Supervisor: Darryl Granger MD Abs.Neutrophil (Seg) 10.30 k/uL High 2.5-7.0 [facility] Comment on above: Performed By: #### C DP #### [facility] [address] [place] [phone] Volunteer Services Supervisor: Darryl Granger MD Basophils/100 WBC (Bld) 0 % Normal 0-[address] [facility] Comment on above: Performed By: #### C DP #### [facility] [address] [place] [phone] Volunteer Services Supervisor: Darryl Granger MD Eosinophils (Bld) [#/Vol] 0.00 10*3/uL Normal 0.0-0.[address] [facility] Comment on above: Performed By: #### C DP #### [facility] [address] [place], [place] [phone] Volunteer Services Supervisor: Darryl Granger MD Eosinophils/100 WBC (Bld) 0 % Normal 0-[address] [facility] Comment on above: Performed By: #### C DP #### [facility] [address] [place], [place] [phone] Volunteer Services Supervisor: Darryl Granger MD Erythrocyte distribution width (RBC) [Ratio] 19.3 % High 12.1-15.[address] [facility] Comment on above: Performed By: #### C DP #### [facility] [address] [place], [place] [phone] Volunteer Services Supervisor: Darryl Granger MD Hematocrit (Bld) [Volume fraction] 26.5 % Low 36-[address] [facility] Comment on above: Performed By: #### C DP #### [facility] [address] [place], [place] [phone] Volunteer Services Supervisor: Darryl Granger MD Hemoglobin (Bld) [Mass/Vol] 8.9 g/dL Low 12.0-16.[address] [facility] Comment on above: Performed By: #### C DP #### [facility] [address] [place], [place] [phone] Volunteer Services Supervisor: Darryl Granger MD Lymphocytes (Bld) [#/Vol] 1.50 10*3/uL Normal 1.0-4.[address] [facility] Comment on above: Performed By: #### C DP #### [facility] [address] [place] [address] Volunteer Services Supervisor: Darryl Granger MD Lymphocytes/100 WBC (Bld) 12 % Low 15-[address] [facility] Comment on above: Performed By: #### C DP #### [facility] [address] [place], [place] [phone] Volunteer Services Supervisor: Darryl Granger MD MCH (RBC) [Entitic mass] 27.5 pg Normal 26-[address] [facility] Comment on above: Performed By: #### C DP #### [facility] [address] [place] [address] Volunteer Services Supervisor: Darryl Granger MD MCHC (RBC) [Mass/Vol] 33.5 g/dL Normal 31-37 [facility] Comment on above: Performed By: #### C DP #### [facility] [address] [place] [address] Volunteer Services Supervisor: Darryl Granger MD MCV (RBC) [Entitic vol] 82.2 fL Normal 80-[address] [facility] Comment on above: Performed By: #### C DP #### [facility] [address] [place] [address] Volunteer Services Supervisor: Darryl Granger MD Monocytes (Bld) [#/Vol] 0.90 10*3/uL Normal 0.0-1.[address] [facility] Comment on above: Performed By: #### C DP #### [facility] [address] [place] [address] Volunteer Services Supervisor: Darryl Granger MD Monocytes/100 WBC (Bld) 7 % Normal 4-[address] [facility] Comment on above: Performed By: #### C DP #### [facility] [address] [place] [address] Volunteer Services Supervisor: Darryl Granger MD Neutrophil (Seg) 81 % High 47-75 [facility] Comment on above: Performed By: #### C DP #### [facility] [address] [place], [place] [phone] Volunteer Services Supervisor: Darryl Granger MD Platelets (Bld) [#/Vol] 107 10*3/uL Low 140-[address] [facility] [facility] [facility] Comment on above: Performed By: #### C DP #### [facility] [address] [place] [address] Volunteer Services Supervisor: Darryl Granger MD RBC (Bld) [#/Vol] 3.23 10*6/uL Low 4.0-5.[address] [facility] Comment on above: Performed By: #### C DP #### [facility] [address] [place] [address] Volunteer Services Supervisor: Darryl Granger MD WBC (Bld) [#/Vol] 12.8 10*3/uL High 3.5-11.[address] [facility] Comment on above: Performed By: #### C DP #### [facility] [address] [place] [address] Volunteer Services Supervisor: Darryl Granger MD Abs.Imm.Granulocyte NOT REPORTED Normal 0.00-0.30 [facility] Comment on above: Performed By: #### C DP #### [facility] [address] [place] [address] Volunteer Services Supervisor: Darryl Granger MD Auto Diff Performed NOT REPORTED Normal [facility] Comment on above: Performed By: #### C DP #### [facility] [address] [place] [address] Volunteer Services Supervisor: Darryl Granger MD Immature Granulocyte NOT REPORTED Normal 0 [facility] Comment on above: Performed By: #### C DP #### [facility] [address] [place] [address] Volunteer Services Supervisor: Darryl Granger MD MPV NOT REPORTED Normal 6.0-12.0 [facility] Comment on above: Performed By: #### C DP #### [facility] [address] [place] [address] Volunteer Services Supervisor: Darryl Granger MD NRBC Automated NOT REPORTED Normal [facility] Comment on above: Performed By: #### C DP #### [facility] [address] [place] [address] Volunteer Services Supervisor: Darryl Granger MD Platelet Estimate NOT REPORTED Normal [facility] Comment on above: Performed By: #### C DP #### [facility] [address] [place] [address] Volunteer Services Supervisor: Darryl Granger MD RBC morphology finding Nom (Bld) NOT REPORTED Normal [facility] Comment on above: Performed By: #### C DP #### [facility] [address] [place] [address] Volunteer Services Supervisor: Darryl Granger MD WBC Morphology NOT REPORTED Normal [facility] Comment on above: Performed By: #### C DP #### [facility] [address] [place] [address] Volunteer Services Supervisor: Darryl Granger MD Morphology Pramod (Bld) [Interp] SLIGHT Normal [facility] Comment on above: Result Comment: ANIS OCYTOSIS Performed By: #### H H #### [facility] [address] [place] [address] Volunteer Services Supervisor: Darryl Granger MD Abs. Basophil 0.00 k/uL Normal 0.0-0.2 [facility] Comment on above: Performed By: #### H H #### [facility] [address] [place] [address] Volunteer Services Supervisor: Darryl Granger MD Abs.Neutrophil (Seg) 8.80 k/uL High 2.5-7.0 [facility] Comment on above: Performed By: #### H H #### [facility] [address] [place] [address] Volunteer Services Supervisor: Darryl Granger MD Basophils/100 WBC (Bld) 0 % Normal 0-[address] [facility] Comment on above: Performed By: #### H H #### [facility] [address] [place] [phone] Volunteer Services Supervisor: Darryl Granger MD Eosinophils (Bld) [#/Vol] 0.00 10*3/uL Normal 0.0-0.[address] [facility] Comment on above: Performed By: #### H H #### [facility] [address] [place] [address] Volunteer Services Supervisor: Darryl Granger MD Eosinophils/100 WBC (Bld) 0 % Normal 0-[address] [facility] Comment on above: Performed By: #### H H #### [facility] [address] [place] [phone] Volunteer Services Supervisor: Darryl Granger MD Erythrocyte distribution width (RBC) [Ratio] 19.4 % High 12.1-15.[address] [facility] Comment on above: Performed By: #### H H #### [facility] [address] [place] [phone] Volunteer Services Supervisor: Darryl Granger MD Hematocrit (Bld) [Volume fraction] 27.6 % Low 36-[address] [facility] Comment on above: Performed By: #### H H #### [facility] [address] [place] [phone] Volunteer Services Supervisor: Darryl Granger MD Hemoglobin (Bld) [Mass/Vol] 9.2 g/dL Low 12.0-16.[address] [facility] Comment on above: Performed By: #### H H #### [facility] [address] [place] [phone] Volunteer Services Supervisor: Darryl Granger MD Lymphocytes (Bld) [#/Vol] 2.10 10*3/uL Normal 1.0-4.[address] [facility] Comment on above: Performed By: #### H H #### [facility] [address] [place] [address] Volunteer Services Supervisor: Darryl Granger MD Lymphocytes/100 WBC (Bld) 18 % Normal 15-[address] [facility] Comment on above: Performed By: #### H H #### [facility] [address] [place] [address] Volunteer Services Supervisor: Darryl Granger MD MCH (RBC) [Entitic mass] 27.2 pg Normal 26-[address] [facility] Comment on above: Performed By: #### H H #### [facility] [address] [place], [place] [phone] Volunteer Services Supervisor: Darryl Granger MD MCHC (RBC) [Mass/Vol] 33.3 g/dL Normal 31-37 [facility] Comment on above: Performed By: #### H H #### [facility] [address] [place] [address] Volunteer Services Supervisor: Darryl Garnger MD MCV (RBC) [Entitic vol] 81.8 fL Normal 80-[address] [facility] Comment on above: Performed By: #### H H #### [facility] [address] [place], [place] [phone] Volunteer Services Supervisor: Darryl Granger MD Monocytes (Bld) [#/Vol] 0.90 10*3/uL Normal 0.0-1.[address] [facility] Comment on above: Performed By: #### H H #### [facility] [address] [place], [place] [phone] Volunteer Services Supervisor: Darryl Granger MD Monocytes/100 WBC (Bld) 8 % Normal 4-[address] [facility] Comment on above: Performed By: #### H H #### [facility] [address] [place] [address] Volunteer Services Supervisor: Darryl Granger MD Neutrophil (Seg) 74 % Normal 47-75 [facility] Comment on above: Performed By: #### H H #### [facility] [address] [place] [address] Volunteer Services Supervisor: Darryl Granger MD Platelets (Bld) [#/Vol] 107 10*3/uL Low 140-[address] [facility] Comment on above: Performed By: #### H H #### [facility] [address] [place] [address] Volunteer Services Supervisor: Darryl Granger MD RBC (Bld) [#/Vol] 3.37 10*6/uL Low 4.0-5.[address] [facility] Comment on above: Performed By: #### H H #### [facility] [address] [place] [address] Volunteer Services Supervisor: Darryl Granger MD WBC (Bld) [#/Vol] 11.8 10*3/uL High 3.5-11.[address] [facility] Comment on above: Performed By: #### H H #### [facility] [address] [place] [phone] Volunteer Services Supervisor: Darryl Granger MD Abs.Imm.Granulocyte NOT REPORTED Normal 0.00-0.30 [facility] Comment on above: Performed By: #### H H #### [facility] [address] [place] [phone] Volunteer Services Supervisor: Darryl Granger MD Auto Diff Performed NOT REPORTED Normal [facility] Comment on above: Performed By: #### H H #### [facility] [address] [place] [phone] Volunteer Services Supervisor: Darryl Granger MD Immature Granulocyte NOT REPORTED Normal 0 [facility] Comment on above: Performed By: #### H H #### [facility] [address] [place] [address] Volunteer Services Supervisor: Darryl Granger MD MPV NOT REPORTED Normal 6.0-12.0 [facility] Comment on above: Performed By: #### H H #### [facility] [address] [place], [place] [phone] Volunteer Services Supervisor: Darryl Granger MD NRBC Automated NOT REPORTED Normal [facility] Comment on above: Performed By: #### H H #### [facility] [address] [place], [place] [phone] Volunteer Services Supervisor: Darryl Granger MD Platelet Estimate NOT REPORTED Normal [facility] Comment on above: Performed By: #### H H #### [facility] [address] [place], [place] [phone] Volunteer Services Supervisor: Darryl Granger MD RBC morphology finding Nom (Bld) NOT REPORTED Normal [facility] Comment on above: Performed By: #### H H #### [facility] [address] [place] [address] Volunteer Services Supervisor: Darryl Granger MD WBC Morphology NOT REPORTED Normal [facility] Comment on above: Performed By: #### H H #### [facility] [address] [place] [address] Volunteer Services Supervisor: Darryl Granger MD Lactate, Sepsison 01-11-2021 Lactic Acid, Sepsis 1.2 mmol/L Normal 0.5-1.[address] [facility] Comment on above: Performed By: #### C DP, BMPX #### [facility] [address] [place] [address] Volunteer Services Supervisor: Darryl Granger MD Lactic Acid,Sep Wbld NOT REPORTED Normal 0.5-1.9 [facility] Comment on above: Performed By: #### C DP, BMPX #### [facility] [address] [place] [address] Volunteer Services Supervisor: Darryl Granger MD Lactate, SepsisOrdered By: Mickey Lowry on 01-11-2021 Lactic Acid, Sepsis 1.2 mmol/L 0.5 - 1. 9 mmol/L [facility] Work Phone: Lactic Acid, Sepsis, Whole Blood NOT REPORTED 0.5 - 1.9 mmol/L [facility] Phone: [facility] [employer] Phone: Magnesiumon 01-11-2021 Magnesium [Mass/Vol] 1.8 mg/dL Normal 1.6-2.6 [facility] Comment on above: Performed By: #### H H #### [facility] [address] [place] [address] Volunteer Services Supervisor: Darryl Granger MD MagnesiumOrdered By: Isaias cody on 01-11-2021 Magnesium [Mass/Vol] 1.8 mg/dL 1.6 - 2 .6 mg/dL [facility] [email or web address] Phone: No Panel InformationOrdered By: Isaias Lowry on 01-11-2021 [facility] [email or web address] Phone: TYPE AND SCREENOrdered By: Mickey Lowry on 01-11-2021 ABO/Rh Negative [facility] Phone: Arm Band Number NOT REPORTED [facility] Work Phone: Blood product type Nom (BPU) Leukocyte Reduced Red Cell [facility] [email or web address] Phone: Crossmatch Result COMPATIBLE [facility] Work Phone: Dispense Status TRANSFUSED [facility] Work Phone: Expiration Date 01/12/2021,2359 [facility] Work Phone: Transfusion Status OK TO TRANSFUSE [facility] [employer] Work Phone: Unit Divison 0 [facility] [employer] Work Phone: Unit Number [id number] [facility] Work Phone: Unit Number [id number] [facility] Work Phone: [facility] Work Phone: XR CHEST PORTABLEon 01-12-20 XR [...] Darryl Son MD 01/11/21 Final result Normal [facility] XR CHEST PORTABLEOrdered By: Isaias Lowry on 01-11-2021 Impression: 1. Interval development of the left lower lobe pneumonia with a small left effusion. 2. Old granulomatous disease. 3. Right lung is unremarkable. [facility] Work Phone: EXAM: XR CHEST PORTABLE HISTORY: Reason [...] midlung field. EKG leads overlie the chest. [facility] Phone: Paul, pn Incoming Radiant Results From [employer] - 01/11/2021 6:53 PM EDT EXAM: XR [...] granulomatous disease. 3. Right lung is unremarkable. [facility] Phone: [facility] Phone: Basic Metabolic PanelOrdered By: Eugene Michelle on 01-10-2021 Anion gap [Moles/Vol] 7 mmol/L Low 9 - 17 mmol/L [facility] Phone: Calcium [Mass/Vol] 8.4 mg/dL Low 8.6 - 10. 4 mg/dL [facility] Phone: Chloride [Moles/Vol] 106 mmol/L 98 - 10 7 mmol/L [facility] Phone: CO2 [Moles/Vol] 22 mmol/L 20 - 31 mmol/L [facility] Phone: Creatinine [Mass/Vol] 1.63 mg/dL High 0.50 - 0.90 mg/dL [facility] Phone: GFR 38 mL/min Low >60 [employer] Phone: GFR Non- 31 mL/min Low >60 [facility] Phone: GFR/1.73 sq M.predicted MDRD (S/P/Bld) [Vol rate/Area] [facility] Phone: Comment on above: Average GFR for 70 o r more years old: 75 mL/min/1.73sq m Chronic Kidney Disease: <60 mL/min/1.73sq m Kidney failure: <15 mL/min/1.73sq m eGFR calculated using average adult body mass. Additional eGFR calculator available at: http://www.[employer].Leadjini/multiple_crcl_2012.htm GFR/1.73 sq M.predicted MDRD (S/P/Bld) [Vol rate/Area] NOT REPORTED [facility] Phone: Glucose [Mass/Vol] 157 mg/dL High 70 - 99 mg/dL [facility] Phone: Interpretation and review of laboratory results Abnormal [facility] Phone: Potassium [Moles/Vol] 5.4 mmol/L High 3.7 - 5.3 mmol/L [facility] Phone: Sodium [Moles/Vol] 135 mmol/L 135 - 144 mmol/L [facility] Phone: Urea nitrogen (BldV) [Mass/Vol] 19 mg/dL 8 - 23 mg/dL [facility] Phone: Urea nitrogen/Creatinine (Bld) [Mass ratio] 12 [facility] Phone: [facility] Phone: Basic Metabolic Profon 01-10 (cont.) Normal [facility] Comment on above: Result Comment: Aver age GFR for 70 or more years old: 75 mL/min/1.73sq m Chronic Kidney Disease: <60 mL/min/1.73sq m Kidney failure: <15 mL/min/1.73sq m eGFR calculated using average adult body mass. Additional eGFR calculator available at: http://www.[employer]/multiple_crcl_2012.htm Performed By: #### C DP, BMP #### [facility] [address] [place] [address] Volunteer Services Supervisor: Darryl Granger MD Anion gap [Moles/Vol] 7 mmol/L Low 9-17 [facility] Comment on above: Performed By: #### C DP, BMP #### [facility] [address] [place] [address] Volunteer Services Supervisor: Darryl Granger MD BUN/CRE Ratio 12 Normal - [facility] Comment on above: Performed By: #### C DP, BMP #### [facility] [address] [place] [address] Volunteer Services Supervisor: Darryl Granger MD Calcium [Mass/Vol] 8.4 mg/dL Low 8.6-10.[address] [facility] Comment on above: Performed By: #### C DP, BMP #### [facility] [address] [place], [place] [phone] Volunteer Services Supervisor: Darryl Granger MD Chloride [Moles/Vol] 106 mmol/L Normal 98-107 [facility] Comment on above: Performed By: #### C DP, BMP #### [facility] [address] [place], [place] [phone] Volunteer Services Supervisor: Darryl Granger MD CO2 [Moles/Vol] 22 mmol/L Normal 20-31 [facility] Comment on above: Performed By: #### C DP, BMP #### [facility] [address] [place] [address] Volunteer Services Supervisor: Darryl Granger MD Creatinine [Mass/Vol] 1.63 mg/dL High 0.50-0.90 [facility] Comment on above: Performed By: #### C DP, BMP #### [facility] [address] [place], [place] [phone] Volunteer Services Supervisor: Darryl Granger MD GFR, Amer 38 mL/min Low >60 [facility] Comment on above: Performed By: #### C DP, BMP #### [facility] [address] [place], [place] [phone] Volunteer Services Supervisor: Darryl Granger MD GFR,non Amer 31 mL/min Low >60 [facility] Comment on above: Performed By: #### C DP, BMP #### [facility] [address] [place], [place] [phone] Volunteer Services Supervisor: Darryl Granger MD Glucose [Mass/Vol] 157 mg/dL High 70-[address] [facility] Comment on above: Performed By: #### C DP, BMP #### [facility] [address] [place], [place] [phone] Volunteer Services Supervisor: Darryl Granger MD Potassium [Moles/Vol] 5.4 mmol/L High 3.7-5.3 [facility] Comment on above: Performed By: #### C DP, BMP #### [facility] [address] [place], [place] [phone] Volunteer Services Supervisor: Darryl Granger MD Sodium [Moles/Vol] 135 mmol/L Normal 135-[address] [facility] Comment on above: Performed By: #### C DP, BMP #### [facility] [address] [place] [address] Volunteer Services Supervisor: Darryl Granger MD Urea nitrogen [Mass/Vol] 19 mg/dL Normal 8-[address] [facility] Comment on above: Performed By: #### C DP, BMP #### [facility] [address] [place], [place] [phone] Volunteer Services Supervisor: Darryl Granger MD Staging: NOT REPORTED Normal [facility] Comment on above: Performed By: #### C DP, BMP #### [facility] [address] [place], [place] [phone] Volunteer Services Supervisor: Darryl Granger MD CBC Auto DifferentialOrdered By: Eugene Michelle on 01-10-2021 [employer] # 0.19 [facility] Work Phone: [employer] # [facility] Work Phone: Comment on above: CORRECTED ON 01/10 A T 0543: PREVIOUSLY REPORTED 0.00 Absolute Immature Granulocyte NOT REPORTED [facility] Work Phone: Absolute Lymph # 0.85 Low [facility] Work Phone: Comment on above: CORRECTED ON 01/10 A T 0543: PREVIOUSLY REPORTED 0.30 [facility] [place] # 0.66 [facility] Work Phone: Comment on above: CORRECTED ON 01/10 A T 0543: PREVIOUSLY REPORTED 0.50 Bands 2 % 0 - 10 % [facility] Work Phone: Basophils (Bld) [#/Vol] 0 - 2 % [facility] Work Phone: Comment on above: CORRECTED ON 01/10 A T 0543: PREVIOUSLY REPORTED 0 Basophils Absolute [facility] Work Phone: Comment on above: CORRECTED ON 01/10 A T 0543: PREVIOUSLY REPORTED 0.00 Differential Type NOT REPORTED [facility] Work Phone: Eosinophils % 0 - 5 % [employer] Work Phone: Comment on above: CORRECTED ON 01/10 A T 0543: PREVIOUSLY REPORTED 0 Hematocrit (Bld) [Volume fraction] 21.6 % Low 36 - 46 % [facility] Phone: Hemoglobin.gastrointes tinal spec 1 Ql (Stl) 7.0 g/dL Critically low 12.0 - 16.0 g/dL [facility] Work Phone: Immature Granulocytes NOT REPORTED 0 % M [employer] Phone: Interpretation and review of laboratory results Abnormal [facility] Phone: Lymphocytes/100 WBC (Bld) 9 % Low 15 - 40 % [facility] Phone: Comment on above: CORRECTED ON 01/10 A T 0543: PREVIOUSLY REPORTED 4 MCH (RBC) [Entitic mass] 27.8 pg 26 - 34 pg [facility] Work Phone: MCHC (RBC) [Mass/Vol] 32.5 g/dL 31 - 37 g/dL [employer] Phone: MCV (RBC) [Entitic vol] 85.5 fL 80 - 100 fL [facility] Work Phone: Monocytes/100 WBC (Bld) 7 % 4 - 8 % [facility] Work Phone: Comment on above: CORRECTED ON 01/10 A T 0543: PREVIOUSLY REPORTED 5 Morphology Pramod (Bld) [Interp] Manual Differential Performed [facility] Work Phone: NRBC Automated NOT REPORTED per 100 WBC [facility] Work Phone: Platelet distribution width (Bld) [Ratio] 15.9 % High 12.1 - 15.2 % [facility] Work Phone: Platelet Estimate NOT REPORTED [facility] Work Phone: Platelet mean volume (Bld) [Entitic vol] NOT REPORTED 6.0 - 12.0 fL [facility] Work Phone: Platelets (Bld) [#/Vol] 151 10*3/uL [facility] Work Phone: RBC (Bld) [#/Vol] 2.53 10*6/uL Low 4.0 - 5.2 m/uL [facility] Work Phone: RBC (Bld) [#/Vol] NOT REPORTED [facility] Work Phone: Seg Neutrophils 82 % High 47 - 75 % [employer] [facility] Work Phone: Comment on above: CORRECTED ON 01/10 A T 0543: PREVIOUSLY REPORTED 91 Segs Absolute 7.70 High [employer] [facility] Work Phone: Comment on above: CORRECTED ON 01/10 A T 0543: PREVIOUSLY REPORTED 8.60 WBC (Bld) [#/Vol] 9.4 10*3/uL [facility] Work Phone: WBC (Bld) [#/Vol] NOT REPORTED [facility] Work Phone: [facility] Work Phone: CBC auto differentialOrdered By: Isaias Lowry on 01-10-2021 [employer] # 0.00 [employer] Work Phone: Absolute Immature Granulocyte NOT REPORTED [facility] Work Phone: Absolute Lymph # 0.70 Low [employer] [facility] Work Phone: [employer] [place] # 1.20 High [facility] [facility] Work Phone: Basophils (Bld) [#/Vol] 0.00 10*3/uL [facility] Work Phone: Basophils/100 WBC (Bld) 0 % 0 - 2 % [facility] Work Phone: Differential Type YES [employer] Work Phone: Eosinophils/100 WBC (Bld) 0 % 0 - 5 % [facility] Phone: Hematocrit (Bld) [Volume fraction] 24.9 % Low 36 - 46 % [facility] Work Phone: Hemoglobin.gastrointes tinal spec 1 Ql (Stl) 8.3 g/dL Low 12.0 - 16.0 g/dL [facility] Work Phone: Immature Granulocytes NOT REPORTED 0 % M [employer] Work Phone: Interpretation and review of laboratory results Abnormal [facility] Phone: Lymphocytes/100 WBC (Bld) 7 % Low 15 - 40 % [facility] Phone: MCH (RBC) [Entitic mass] 28.8 pg 26 - 34 pg [facility] Work Phone: MCHC (RBC) [Mass/Vol] 33.5 g/dL 31 - 37 g/dL [employer] Phone: MCV (RBC) [Entitic vol] 85.8 fL 80 - 100 fL [facility] Phone: Monocytes/100 WBC (Bld) 12 % High 4 - 8 % [facility] Phone: NRBC Automated NOT REPORTED per 100 WBC [employer] Work Phone: Platelet distribution width (Bld) [Ratio] 15.5 % High 12.1 - 15.2 % [facility] Phone: Platelet Estimate NOT REPORTED [facility] Phone: Platelet mean volume (Bld) [Entitic vol] NOT REPORTED 6.0 - 12.0 fL [facility] Phone: Platelets (Bld) [#/Vol] 135 10*3/uL Low [facility] Phone: RBC (Bld) [#/Vol] 2.90 10*6/uL Low 4.0 - 5.2 m/uL [facility] Phone: RBC (Bld) [#/Vol] NOT REPORTED [facility] Phone: Segmented neutrophils/100 WBC (Bld) 81 % High 47 - 75 % [facility] Phone: Segs Absolute 8.10 High [employer] Work Phone: WBC (Bld) [#/Vol] 10.0 10*3/uL [facility] Phone: WBC (Bld) [#/Vol] NOT REPORTED [facility] Phone: [facility] Phone: CBC with Diffon 01-10-2021 Abs. Basophil 0.00 k/uL Normal 0.0-0.2 [facility] Comment on above: Performed By: #### H H #### [facility] [address] [place] [address] Volunteer Services Supervisor: Darryl Granger MD Abs.Neutrophil (Seg) 8.10 k/uL High 2.5-7.0 [facility] Comment on above: Performed By: #### H H #### [facility] [address] [place] [address] Volunteer Services Supervisor: Darryl Granger MD Auto Diff Performed YES Normal [facility] Comment on above: Performed By: #### H H #### [facility] [address] [place] [address] Volunteer Services Supervisor: Darryl Granger MD Basophils/100 WBC (Bld) 0 % Normal 0-[address] [facility] Comment on above: Performed By: #### H H #### [facility] [address] [place] [address] Volunteer Services Supervisor: Darryl Granger MD Eosinophils (Bld) [#/Vol] 0.00 10*3/uL Normal 0.0-0.[address] [facility] Comment on above: Performed By: #### H H #### [facility] [address] [place] [address] Volunteer Services Supervisor: Darryl Granger MD Eosinophils/100 WBC (Bld) 0 % Normal 0-[address] [facility] Comment on above: Performed By: #### H H #### [facility] [address] [place] [address] Volunteer Services Supervisor: Darryl Granger MD Erythrocyte distribution width (RBC) [Ratio] 15.5 % High 12.1-15.[address] [facility] Comment on above: Performed By: #### H H #### [facility] [address] [place] [address] Volunteer Services Supervisor: Darryl Granger MD Hematocrit (Bld) [Volume fraction] 24.9 % Low 36-[address] [facility] Comment on above: Performed By: #### H H #### [facility] [address] [place] [address] Volunteer Services Supervisor: Darryl Granger MD Hemoglobin (Bld) [Mass/Vol] 8.3 g/dL Low 12.0-16.[address] [facility] Comment on above: Performed By: #### H H #### [facility] [address] [place] [address] Volunteer Services Supervisor: Darryl Granger MD Lymphocytes (Bld) [#/Vol] 0.70 10*3/uL Low 1.0-4.[address] [facility] Comment on above: Performed By: #### H H #### [facility] [address] [place] [address] [employer] Supervisor: Darryl Granger MD Lymphocytes/100 WBC (Bld) 7 % Low 15-[address] [facility] Comment on above: Performed By: #### H H #### [facility] [address] [place] [address] Volunteer Services Supervisor: Darryl Granger MD MCH (RBC) [Entitic mass] 28.8 pg Normal 26-[address] [facility] Comment on above: Performed By: #### H H #### [facility] [address] [place] [phone] [employer] Services Supervisor: Darryl Granger MD MCHC (RBC) [Mass/Vol] 33.5 g/dL Normal 31-37 [facility] Comment on above: Performed By: #### H H #### [facility] [address] [place] [address] Volunteer Services Supervisor: Darryl Granger MD MCV (RBC) [Entitic vol] 85.8 fL Normal 80-[address] [facility] Comment on above: Performed By: #### H H #### [facility] [address] [place] [address] Volunteer Services Supervisor: Darryl Granger MD Monocytes (Bld) [#/Vol] 1.20 10*3/uL High 0.0-1.[address] [facility] Comment on above: Performed By: #### H H #### [facility] [address] [place] [address] Volunteer Services Supervisor: Darryl Granger MD Monocytes/100 WBC (Bld) 12 % High 4-[address] [facility] Comment on above: Performed By: #### H H #### [facility] [address] [place] [address] Volunteer Services Supervisor: Darryl Granger MD Neutrophil (Seg) 81 % High 47-75 [facility] Comment on above: Performed By: #### H H #### [facility] [address] [place] [address] Volunteer Services Supervisor: Darryl Granger MD Platelets (Bld) [#/Vol] 135 10*3/uL Low 140-[address] [facility] Comment on above: Performed By: #### H H #### [facility] [address] [place] [address] Volunteer Services Supervisor: Darryl Granger MD RBC (Bld) [#/Vol] 2.90 10*6/uL Low 4.0-5.[address] [facility] Comment on above: Performed By: #### H H #### [facility] [address] [place] [address] Volunteer Services Supervisor: Darryl Granger MD WBC (Bld) [#/Vol] 10.0 10*3/uL Normal 3.5-11.[address] [facility] Comment on above: Performed By: #### H H #### [facility] [address] [place] [address] Volunteer Services Supervisor: Darryl Granger MD Abs.Imm.Granulocyte NOT REPORTED Normal 0.00-0.30 [facility] Comment on above: Performed By: #### H H #### [facility] [address] [place] [address] Volunteer Services Supervisor: Darryl Granger MD Immature Granulocyte NOT REPORTED Normal 0 [facility] Comment on above: Performed By: #### H H #### [facility] [address] [place] [address] Volunteer Services Supervisor: Darryl Granger MD MPV NOT REPORTED Normal 6.0-12.0 [facility] Comment on above: Performed By: #### H H #### [facility] [address] [place] [address] Volunteer Services Supervisor: Darryl Granger MD NRBC Automated NOT REPORTED Normal [facility] Comment on above: Performed By: #### H H #### [facility] [address] [place] [address] Volunteer Services Supervisor: Darryl Granger MD Platelet Estimate NOT REPORTED Normal [facility] Comment on above: Performed By: #### H H #### [facility] [address] [place] [address] Volunteer Services Supervisor: Darryl Granger MD RBC morphology finding Nom (Bld) NOT REPORTED Normal [facility] Comment on above: Performed By: #### H H #### [facility] [address] [place] [phone] Volunteer Services Supervisor: Darryl Granger MD WBC Morphology NOT REPORTED Normal [facility] Comment on above: Performed By: #### H H #### [facility] [address] [place] [address] Volunteer Services Supervisor: Darryl Granger MD Abs. Bands 0.19 k/uL Normal 0.0-1.[address] [facility] Comment on above: Performed By: #### C DP, BMP #### [facility] [address] [place] [address] Volunteer Services Supervisor: Darryl Granger MD Abs. Basophil Normal 0.0-0.2 [facility] Comment on above: Result Comment: NICK ECTED ON 01/10 AT 0543: PREVIOUSLY REPORTED 0.00 Performed By: #### C DP, BMP #### [facility] [address] [place] [address] Volunteer Services Supervisor: Darryl Granger MD Abs. Eosinophil Normal 0.0-0.4 [facility] Comment on above: Result Comment: NICK ECTED ON 01/10 AT 0543: PREVIOUSLY REPORTED 0.00 Performed By: #### C DP, BMP #### [facility] [address] [place], [place] [phone] Volunteer Services Supervisor: Darryl Granger MD Abs.Neutrophil (Seg) 7.70 k/uL High 2.5-7.0 [facility] Comment on above: Result Comment: NICK ECTED ON 01/10 AT 0543: PREVIOUSLY REPORTED 8.60 Performed By: #### C DP, BMP #### [facility] [address] [place] [address] Volunteer Services Supervisor: Darryl Granger MD Bands 2 % Normal 0-[address] [facility] Comment on above: Performed By: #### C DP, BMP #### [facility] [address] [place] [address] Volunteer Services Supervisor: Darryl Granger MD Basophil Normal 0-[address] [facility] Comment on above: Result Comment: NICK ECTED ON 01/10 AT 0543: PREVIOUSLY REPORTED 0 Performed By: #### C DP, BMP #### [facility] [address] [place] [phone] Volunteer Services Supervisor: Darryl Granger MD Eosinophil Normal 0-[address] [facility] Comment on above: Result Comment: NICK ECTED ON 01/10 AT 0543: PREVIOUSLY REPORTED 0 Performed By: #### C DP, BMP #### [facility] [address] [place], [place] [phone] Volunteer Services Supervisor: Darryl Granger MD Lymphocytes (Bld) [#/Vol] 0.85 10*3/uL Low 1.0-4.[address] [facility] Comment on above: Result Comment: NICK ECTED ON 01/10 AT 0543: PREVIOUSLY REPORTED 0.30 Performed By: #### C DP, BMP #### [facility] [address] [place] [address] Volunteer Services Supervisor: Darryl Granger MD Lymphocytes/100 WBC (Bld) 9 % Low 15-[address] [facility] Comment on above: Result Comment: NICK ECTED ON 01/10 AT 0543: PREVIOUSLY REPORTED 4 Performed By: #### C DP, BMP #### [facility] [address] [place] [address] Volunteer Services Supervisor: Darryl Granger MD Monocytes (Bld) [#/Vol] 0.66 10*3/uL Normal 0.0-1.[address] [facility] Comment on above: Result Comment: NICK ECTED ON 01/10 AT 0543: PREVIOUSLY REPORTED 0.50 Performed By: #### C DP, BMP #### [facility] [address] [place] [address] Volunteer Services Supervisor: Darryl Granger MD Monocytes/100 WBC (Bld) 7 % Normal 4-[address] [facility] Comment on above: Result Comment: NICK ECTED ON 01/10 AT 0543: PREVIOUSLY REPORTED 5 Performed By: #### C DP, BMP #### [facility] [address] [place] [address] Volunteer Services Supervisor: Darryl Granger MD Morphology Pramod (Bld) [Interp] Manual Differential Performed Normal [facility] Comment on above: Performed By: #### C DP, BMP #### [facility] [address] [place] [phone] Volunteer Services Supervisor: Darryl Granger MD Neutrophil (Seg) 82 % High 47-75 [facility] Comment on above: Result Comment: NICK ECTED ON 01/10 AT 0543: PREVIOUSLY REPORTED 91 Performed By: #### C DP, BMP #### [facility] [address] [place] [address] Volunteer Services Supervisor: Darryl Granger MD Erythrocyte distribution width (RBC) [Ratio] 15.9 % High 12.1-15.[address] [facility] Comment on above: Performed By: #### C DP, BMP #### [facility] [address] [place] [address] Volunteer Services Supervisor: Darryl Granger MD Hematocrit (Bld) [Volume fraction] 21.6 % Low 36-[address] [facility] Comment on above: Performed By: #### C DP, BMP #### [facility] [address] [place] [address] Volunteer Services Supervisor: Darryl Granger MD Hemoglobin (Bld) [Mass/Vol] 7.0 g/dL Critically low 12.0-16.[address] [facility] Comment on above: Performed By: #### C DP, BMP #### [facility] [address] [place] [address] Volunteer Services Supervisor: Darryl Granger MD MCH (RBC) [Entitic mass] 27.8 pg Normal 26-[address] [facility] Comment on above: Performed By: #### C DP, BMP #### [facility] [address] [place] [address] Volunteer Services Supervisor: Darryl Granger MD MCHC (RBC) [Mass/Vol] 32.5 g/dL Normal 31-37 [facility] Comment on above: Performed By: #### C DP, BMP #### [facility] [address] [place] [address] Volunteer Services Supervisor: Darryl Granger MD MCV (RBC) [Entitic vol] 85.5 fL Normal 80-[address] [facility] Comment on above: Performed By: #### C DP, BMP #### [facility] [address] [place] [address] Volunteer Services Supervisor: Darryl Granger MD Platelets (Bld) [#/Vol] 151 10*3/uL Normal 140-[address] [facility] Comment on above: Performed By: #### C DP, BMP #### [facility] [address] [place] [phone] Volunteer Services Supervisor: Darryl Grangre MD RBC (Bld) [#/Vol] 2.53 10*6/uL Low 4.0-5.[address] [facility] Comment on above: Performed By: #### C DP, BMP #### [facility] [address] [place] [address] Volunteer Services Supervisor: Darryl Gragner MD WBC (Bld) [#/Vol] 9.4 10*3/uL Normal 3.5-11.[address] [facility] Comment on above: Performed By: #### C DP, BMP #### [facility] [address] [place] [phone] Volunteer Services Supervisor: Darryl Granger MD Abs.Imm.Granulocyte NOT REPORTED Normal 0.00-0.30 [facility] Comment on above: Performed By: #### C DP, BMP #### [facility] [address] [place] [phone] Volunteer Services Supervisor: Darryl Granger MD Auto Diff Performed NOT REPORTED Normal [facility] Comment on above: Performed By: #### C DP, BMP #### [facility] [address] [place] [phone] Volunteer Services Supervisor: Darryl Granger MD Immature Granulocyte NOT REPORTED Normal 0 [facility] Comment on above: Performed By: #### C DP, BMP #### [facility] [address] [place] [address] Volunteer Services Supervisor: Darryl Granger MD MPV NOT REPORTED Normal 6.0-12.0 [facility] Comment on above: Performed By: #### C DP, BMP #### [facility] [address] [place] [phone] Volunteer Services Supervisor: Darryl Granger MD NRBC Automated NOT REPORTED Normal [facility] Comment on above: Performed By: #### C DP, BMP #### [facility] [address] [place], [place] [phone] Volunteer Services Supervisor: Darryl Granger MD Platelet Estimate NOT REPORTED Normal [facility] Comment on above: Performed By: #### C DP, BMP #### [facility] [address] [place], [place] [phone] Volunteer Services Supervisor: Darryl Granger MD RBC morphology finding Nom (Bld) NOT REPORTED Normal [facility] Comment on above: Performed By: #### C DP, BMP #### [facility] [address] [place], [place] [phone] Volunteer Services Supervisor: Darryl Granger MD WBC Morphology NOT REPORTED Normal [facility] Comment on above: Performed By: #### C DP, BMP #### [facility] [address] [place] [address] Volunteer Services Supervisor: Darryl Granger MD Type + Screenon 01-10-2021 Type + Screen Sample Expiration 01/12/2021,2359 Arm Band Number NOT REPORTED ABO/Rh(D) A NEGATIVE Antibody Screen NEGATIVE Unit Number [id number] Blood Component Type Leukocyte Reduced Red Cell Unit Division 00 Status of Unit TRANSFUSED Transfusion Status OK TO TRANSFUSE Crossmatch Result COMPATIBLE Unit Number [id number] Blood Component Type Leukocyte Reduced Red Cell Unit Division 00 Status of Unit TRANSFUSED Transfusion Status OK TO TRANSFUSE Crossmatch Result COMPATIBLE Normal [facility] Comment on above: Performed By: #### C DP, BMPX #### [facility] [address] [place], [place] [phone] Volunteer Services Supervisor: Darryl Granger MD XR ABDOMEN (KUB) (SINGLE [...] Gerhard Hamilton MD 01/10/21 Final result Normal [facility] XR ABDOMEN (KUB) (SINGLE AP VIEW)Ordered By: Isaias Lowry on 01-10-2021 Nonobstructive bowel gas pattern. [facility] Phone: EXAM: XR ABDOMEN (KUB) (SINGLE AP [...] free intraperitoneal air. Cholecystectomy clips are present. [facility] Phone: Paul, [facility] Incoming Radiant Results From [employer] - 01/10/2021 3:51 PM EDT EXAM: XR [...] are present. IMPRESSION: Nonobstructive bowel gas pattern. [facility] Phone: [facility] Phone: Basic Metab w/rfx MGon 01-09 (cont.) Normal [facility] Comment on above: Result Comment: Aver age GFR for 70 or more years old: 75 mL/min/1.73sq m Chronic Kidney Disease: <60 mL/min/1.73sq m Kidney failure: <15 mL/min/1.73sq m eGFR calculated using average adult body mass. Additional eGFR calculator available at: http://www.[employer].Leadjini/multiple_crcl_2012.htm Performed By: #### C DP, BMPX #### [facility] [address] [place] [address] Volunteer Services Supervisor: Darryl Granger MD Anion gap [Moles/Vol] 6 mmol/L Low 9-17 [facility] Comment on above: Performed By: #### C DP, BMPX #### [facility] [address] [place] [address] Volunteer Services Supervisor: Darryl Granger MD BUN/CRE Ratio 12 Normal 9-20 [facility] Comment on above: Performed By: #### C DP, BMPX #### [facility] [address] [place] [address] Volunteer Services Supervisor: Darryl Granger MD Calcium [Mass/Vol] 8.9 mg/dL Normal 8.6-10.[address] [facility] Comment on above: Performed By: #### C DP, BMPX #### [facility] [address] [place] [address] Volunteer Services Supervisor: Darryl Granger MD Chloride [Moles/Vol] 102 mmol/L Normal 98-107 [facility] Comment on above: Performed By: #### C DP, BMPX #### [facility] [address] [place] [address] Volunteer Services Supervisor: Darryl Granger MD CO2 [Moles/Vol] 28 mmol/L Normal 20-31 [facility] Comment on above: Performed By: #### C DP, BMPX #### [facility] [address] [place] [address] Volunteer Services Supervisor: Darryl Granger MD Creatinine [Mass/Vol] 1.45 mg/dL High 0.50-0.90 [facility] Comment on above: Performed By: #### C DP, BMPX #### [facility] [address] [place], [place] [phone] Volunteer Services Supervisor: Darryl Granger MD GFR, Amer 43 mL/min Low >60 [facility] Comment on above: Performed By: #### C DP, BMPX #### [facility] [address] [place], [place] [phone] Volunteer Services Supervisor: Darryl Granger MD GFR,non Amer 36 mL/min Low >60 [facility] Comment on above: Performed By: #### C DP, BMPX #### [facility] [address] [place], [place] [phone] Volunteer Services Supervisor: Darryl Granger MD Glucose [Mass/Vol] 129 mg/dL High 70-[address] [facility] Comment on above: Performed By: #### C DP, BMPX #### [facility] [address] [place], [place] [phone] Volunteer Services Supervisor: Darryl Granger MD Potassium [Moles/Vol] 6.1 mmol/L Critically high 3.7-5.[address] [facility] Comment on above: Performed By: #### C DP, BMPX #### [facility] [address] [place] [address] Volunteer Services Supervisor: Darryl Granger MD Sodium [Moles/Vol] 136 mmol/L Normal 135-[address] [facility] Comment on above: Performed By: #### C DP, BMPX #### [facility] [address] [place] [address] Volunteer Services Supervisor: Darryl rGanger MD Urea nitrogen [Mass/Vol] 17 mg/dL Normal 8-[address] [facility] Comment on above: Performed By: #### C DP, BMPX #### [facility] [address] [place] [address] Volunteer Services Supervisor: Darryl Granger MD Staging: NOT REPORTED Normal [facility] Comment on above: Performed By: #### C DP, BMPX #### [facility] [address] [place] [address] Volunteer Services Supervisor: Darryl Granger MD Basic Metabolic PanelOrdered By: Isaias Lowry on 01-09-2021 Anion gap [Moles/Vol] 6 mmol/L Low 9 - 17 mmol/L [facility] Phone: Calcium [Mass/Vol] 8.3 mg/dL Low 8.6 - 10. 4 mg/dL [facility] Phone: Chloride [Moles/Vol] 103 mmol/L 98 - 10 7 mmol/L [facility] Phone: CO2 [Moles/Vol] 26 mmol/L 20 - 31 mmol/L [facility] Phone: Creatinine [Mass/Vol] 1.38 mg/dL High 0.50 - 0.90 mg/dL [facility] Phone: GFR 46 mL/min Low >60 [employer] Phone: GFR Non- 38 mL/min Low >60 [facility] Phone: GFR/1.73 sq M.predicted MDRD (S/P/Bld) [Vol rate/Area] [facility] Phone: Comment on above: Average GFR for 70 o r more years old: 75 mL/min/1.73sq m Chronic Kidney Disease: <60 mL/min/1.73sq m Kidney failure: <15 mL/min/1.73sq m eGFR calculated using average adult body mass. Additional eGFR calculator available at: http://www.[employer].Leadjini/multiple_crcl_2012.htm GFR/1.73 sq M.predicted MDRD (S/P/Bld) [Vol rate/Area] NOT REPORTED [facility] Phone: Glucose [Mass/Vol] 131 mg/dL High 70 - 99 mg/dL [facility] Phone: Interpretation and review of laboratory results Abnormal [facility] Phone: Potassium [Moles/Vol] 5.0 mmol/L 3.7 - 5.3 mmol/L [facility] Phone: Sodium [Moles/Vol] 135 mmol/L 135 - 144 mmol/L [facility] Phone: Urea nitrogen (BldV) [Mass/Vol] 16 mg/dL 8 - 23 mg/dL [facility] Phone: Urea nitrogen/Creatinine (Bld) [Mass ratio] 12 [facility] Phone: [facility] Phone: Basic Metabolic Panel w/ Ref ignacio to MGOrdered By: Isaias Lowry on 01-09-2021 Anion gap [Moles/Vol] 6 mmol/L Low 9 - 17 mmol/L [facility] Phone: Calcium [Mass/Vol] 8.9 mg/dL 8.6 - 10. 4 mg/dL [facility] Phone: Chloride [Moles/Vol] 102 mmol/L 98 - 10 7 mmol/L [facility] Phone: CO2 [Moles/Vol] 28 mmol/L 20 - 31 mmol/L [facility] Phone: Creatinine [Mass/Vol] 1.45 mg/dL High 0.50 - 0.90 mg/dL [facility] Phone: GFR 43 mL/min Low >60 [facility] Phone: GFR Non- 36 mL/min Low >60 [facility] Phone: GFR/1.73 sq M.predicted MDRD (S/P/Bld) [Vol rate/Area] [facility] Phone: Comment on above: Average GFR for 70 o r more years old: 75 mL/min/1.73sq m Chronic Kidney Disease: <60 mL/min/1.73sq m Kidney failure: <15 mL/min/1.73sq m eGFR calculated using average adult body mass. Additional eGFR calculator available at: http://www.[employer]/C3 Metrics_crcl_2011.htm GFR/1.73 sq M.predicted MDRD (S/P/Bld) [Vol rate/Area] NOT REPORTED [facility] Phone: Glucose [Mass/Vol] 129 mg/dL High 70 - 99 mg/dL [facility] Phone: Interpretation and review of laboratory results Abnormal [facility] Phone: Potassium [Moles/Vol] 6.1 mmol/L Critically high 3.7 - 5.3 mmol/L [facility] Phone: Sodium [Moles/Vol] 136 mmol/L 135 - 144 mmol/L [facility] Phone: Urea nitrogen (BldV) [Mass/Vol] 17 mg/dL 8 - 23 mg/dL [facility] Phone: Urea nitrogen/Creatinine (Bld) [Mass ratio] 12 [facility] Phone: [facility] Phone: Basic Metabolic Profon 01-09 (cont.) Normal [facility] Comment on above: Result Comment: Aver age GFR for 70 or more years old: 75 mL/min/1.73sq m Chronic Kidney Disease: <60 mL/min/1.73sq m Kidney failure: <15 mL/min/1.73sq m eGFR calculated using average adult body mass. Additional eGFR calculator available at: http://www.[employer]/C3 Metrics_crcl_2011.htm Performed By: #### C DP, BMPX #### [facility] [address] [place], [place] [phone] Volunteer Services Supervisor: Darryl Granger MD Anion gap [Moles/Vol] 6 mmol/L Low 9-17 [facility] Comment on above: Performed By: #### C DP, BMPX #### [facility] [address] [place], [place] [phone] Volunteer Services Supervisor: Darryl Granger MD BUN/CRE Ratio 12 Normal 9-20 [facility] Comment on above: Performed By: #### C DP, BMPX #### [facility] [address] [place], [place] [phone] Volunteer Services Supervisor: Darryl Granger MD Calcium [Mass/Vol] 8.3 mg/dL Low 8.6-10.[address] [facility] Comment on above: Performed By: #### C DP, BMPX #### [facility] [address] [place], [place] [phone] Volunteer Services Supervisor: Darryl Granger MD Chloride [Moles/Vol] 103 mmol/L Normal 98-107 [facility] Comment on above: Performed By: #### C DP, BMPX #### [facility] [address] [place] [address] Volunteer Services Supervisor: Darryl Granger MD CO2 [Moles/Vol] 26 mmol/L Normal 20-31 [facility] Comment on above: Performed By: #### C DP, BMPX #### [facility] [address] [place], [place] [phone] Volunteer Services Supervisor: Darryl Granger MD Creatinine [Mass/Vol] 1.38 mg/dL High 0.50-0.90 [facility] Comment on above: Performed By: #### C DP, BMPX #### [facility] [address] [place], [place] [phone] Volunteer Services Supervisor: Darryl Granger MD GFR, Amer 46 mL/min Low >60 [facility] Comment on above: Performed By: #### C DP, BMPX #### [facility] [address] [place], [place] [phone] Volunteer Services Supervisor: Darryl Granger MD GFR,non Amer 38 mL/min Low >60 [facility] Comment on above: Performed By: #### C DP, BMPX #### [facility] [address] [place], [place] [phone] Volunteer Services Supervisor: Darryl Granger MD Glucose [Mass/Vol] 131 mg/dL High 70-[address] [facility] Comment on above: Performed By: #### C DP, BMPX #### [facility] [address] [place] [address] Volunteer Services Supervisor: Darryl Granger MD Potassium [Moles/Vol] 5.0 mmol/L Normal 3.7-5.3 [facility] Comment on above: Performed By: #### C DP, BMPX #### [facility] [address] [place], [place] [phone] Volunteer Services Supervisor: Darryl Granger MD Sodium [Moles/Vol] 135 mmol/L Normal 135-[address] [facility] Comment on above: Performed By: #### C DP, BMPX #### [facility] [address] [place], [place] [phone] Volunteer Services Supervisor: Darryl Granger MD Urea nitrogen [Mass/Vol] 16 mg/dL Normal 8-[address] [facility] Comment on above: Performed By: #### C DP, BMPX #### [facility] [address] [place], [place] [phone] Volunteer Services Supervisor: Darryl Granger MD Staging: NOT REPORTED Normal [facility] Comment on above: Performed By: #### C DP, BMPX #### [facility] [address] [place] [address] Volunteer Services Supervisor: Darryl Granger MD CBC auto differentialOrdered By: Isaias Lowry on 01-09-2021 [employer] # 0.00 [employer] [facility] Work Phone: [employer] Immature Granulocyte NOT REPORTED [facility] Work Phone: [employer] Lymph # 1.30 [employer] [facility] Work Phone: [employer] [place] # 0.70 [employer] [facility] Work Phone: Basophils (Bld) [#/Vol] 0.00 10*3/uL [facility] Work Phone: Basophils/100 WBC (Bld) 0 % 0 - 2 % [facility] Work Phone: Differential Type YES [facility] Work Phone: Eosinophils/100 WBC (Bld) 0 % 0 - 5 % [facility] Phone: Hematocrit (Bld) [Volume fraction] 28.6 % Low 36 - 46 % [facility] Work Phone: Hemoglobin.gastrointes tinal spec 1 Ql (Stl) 9.4 g/dL Low 12.0 - 16.0 g/dL [facility] Phone: Immature Granulocytes NOT REPORTED 0 % [employer] Phone: Interpretation and review of laboratory results Abnormal [facility] Phone: Lymphocytes/100 WBC (Bld) 14 % Low 15 - 40 % [facility] Phone: MCH (RBC) [Entitic mass] 27.7 pg 26 - 34 pg [employer] Work Phone: MCHC (RBC) [Mass/Vol] 32.8 g/dL 31 - 37 g/dL M [employer] Phone: MCV (RBC) [Entitic vol] 84.4 fL 80 - 100 fL [employer] Work Phone: Monocytes/100 WBC (Bld) 7 % 4 - 8 % [facility] Phone: NRBC Automated NOT REPORTED per 100 WBC [employer] Work Phone: Platelet distribution width (Bld) [Ratio] 15.2 % 12.1 - 15.2 % [facility] Phone: Platelet Estimate NOT REPORTED [facility] Phone: Platelet mean volume (Bld) [Entitic vol] NOT REPORTED 6.0 - 12.0 fL [facility] Phone: Platelets (Bld) [#/Vol] 178 10*3/uL [facility] Phone: RBC (Bld) [#/Vol] 3.39 10*6/uL Low 4.0 - 5.2 m/uL [facility] Phone: RBC (Bld) [#/Vol] NOT REPORTED [facility] Phone: Segmented neutrophils/100 WBC (Bld) 79 % High 47 - 75 % [facility] Phone: Segs Absolute 7.80 High [employer] Work Phone: WBC (Bld) [#/Vol] 9.8 10*3/uL [facility] Phone: WBC (Bld) [#/Vol] NOT REPORTED [facility] Phone: [facility] Phone: CBC with Diffon 01-09-2021 Abs. Basophil 0.00 k/uL Normal 0.0-0.2 [facility] Comment on above: Performed By: #### C ALLYSON, BMPX #### [facility] [address] [place] [address] Volunteer Services Supervisor: Darryl Granger MD Abs.Neutrophil (Seg) 7.80 k/uL High 2.5-7.0 [facility] Comment on above: Performed By: #### C DP, BMPX #### [facility] [address] [place] [phone] [employer]er Services Supervisor: Darryl Granger MD Auto Diff Performed YES Normal [facility] Comment on above: Performed By: #### C DP, BMPX #### [facility] [address] [phone] Volunteer Services Supervisor: Darryl Gragner MD Basophils/100 WBC (Bld) 0 % Normal 0-[address] [facility] Comment on above: Performed By: #### C DP, BMPX #### [facility] [address] [place] [address] Volunteer Services Supervisor: Darryl Granger MD Eosinophils (Bld) [#/Vol] 0.00 10*3/uL Normal 0.0-0.[address] [facility] Comment on above: Performed By: #### C DP, BMPX #### [facility] [address] [phone] Volunteer Services Supervisor: Darryl Granger MD Eosinophils/100 WBC (Bld) 0 % Normal 0-[address] [facility] Comment on above: Performed By: #### C DP, BMPX #### [facility] [address] [phone] Volunteer Services Supervisor: Darryl Granger MD Erythrocyte distribution width (RBC) [Ratio] 15.2 % Normal 12.1-15.[address] [facility] Comment on above: Performed By: #### C DP, BMPX #### [facility] [address] [place] [address] Volunteer Services Supervisor: Darryl Granger MD Hematocrit (Bld) [Volume fraction] 28.6 % Low 36-[address] [facility] Comment on above: Performed By: #### C DP, BMPX #### [facility] [address] [phone] Volunteer Services Supervisor: Darryl Granger MD Hemoglobin (Bld) [Mass/Vol] 9.4 g/dL Low 12.0-16.[address] [facility] Comment on above: Performed By: #### C DP, BMPX #### [facility] [address] [place] [address] Volunteer Services Supervisor: Darryl Granger MD Lymphocytes (Bld) [#/Vol] 1.30 10*3/uL Normal 1.0-4.[address] [facility] Comment on above: Performed By: #### C DP, BMPX #### [facility] [address] [place] [address] Volunteer Services Supervisor: Darryl Granger MD Lymphocytes/100 WBC (Bld) 14 % Low 15-[address] [facility] Comment on above: Performed By: #### C DP, BMPX #### [facility] [address] [place] [address] Volunteer Services Supervisor: Darryl Granger MD MCH (RBC) [Entitic mass] 27.7 pg Normal 26-[address] [facility] Comment on above: Performed By: #### C DP, BMPX #### [facility] [address] [place] [address] Volunteer Services Supervisor: Darryl Granger MD MCHC (RBC) [Mass/Vol] 32.8 g/dL Normal 31-37 [facility] Comment on above: Performed By: #### C DP, BMPX #### [facility] [address] [place] [address] Volunteer Services Supervisor: Darryl Granger MD MCV (RBC) [Entitic vol] 84.4 fL Normal 80-[address] [facility] Comment on above: Performed By: #### C DP, BMPX #### [facility] [address] [place] [address] Volunteer Services Supervisor: Darryl Granger MD Monocytes (Bld) [#/Vol] 0.70 10*3/uL Normal 0.0-1.[address] [facility] Comment on above: Performed By: #### C DP, BMPX #### [facility] [address] [place] [address] Volunteer Services Supervisor: Darryl Granger MD Monocytes/100 WBC (Bld) 7 % Normal 4-[address] [facility] Comment on above: Performed By: #### C DP, BMPX #### [facility] [address] [phone] Volunteer Services Supervisor: Darryl Granger MD Neutrophil (Seg) 79 % High 47-75 [facility] Comment on above: Performed By: #### C DP, BMPX #### [facility] [address] [phone] Volunteer Services Supervisor: Darryl Granger MD Platelets (Bld) [#/Vol] 178 10*3/uL Normal 140-[address] [facility] Comment on above: Performed By: #### C DP, BMPX #### [facility] [address] [phone] Volunteer Services Supervisor: Darryl Granger MD RBC (Bld) [#/Vol] 3.39 10*6/uL Low 4.0-5.[address] [facility] Comment on above: Performed By: #### C DP, BMPX #### [facility] [address] [phone] Volunteer Services Supervisor: Darryl Granger MD WBC (Bld) [#/Vol] 9.8 10*3/uL Normal 3.5-11.[address] [facility] Comment on above: Performed By: #### C DP, BMPX #### [facility] [address] [place] [address] Volunteer Services Supervisor: Darryl Granger MD Abs.Imm.Granulocyte NOT REPORTED Normal 0.00-0.30 [facility] Comment on above: Performed By: #### C DP, BMPX #### [facility] [address] [place], [place] [phone] Volunteer Services Supervisor: Darryl rGanger MD Immature Granulocyte NOT REPORTED Normal 0 [facility] Comment on above: Performed By: #### C DP, BMPX #### [facility] [address] [place], [place] [phone] Volunteer Services Supervisor: Darryl Granger MD MPV NOT REPORTED Normal 6.0-12.0 [facility] Comment on above: Performed By: #### C DP, BMPX #### [facility] [address] [phone] Volunteer Services Supervisor: Darryl Granger MD NRBC Automated NOT REPORTED Normal [facility] Comment on above: Performed By: #### C DP, BMPX #### [facility] [address] [place], [place] [phone] Volunteer Services Supervisor: Darryl Granger MD Platelet Estimate NOT REPORTED Normal [facility] Comment on above: Performed By: #### C DP, BMPX #### [facility] [address] [place], [place] [phone] Volunteer Services Supervisor: Darryl Granger MD RBC morphology finding Nom (Bld) NOT REPORTED Normal [facility] Comment on above: Performed By: #### C DP, BMPX #### [facility] [address] [place], [place] [phone] Volunteer Services Supervisor: Darryl Granger MD WBC Morphology NOT REPORTED Normal [facility] Comment on above: Performed By: #### C DP, BMPX #### [facility] [address] [place] [address] Volunteer Services Supervisor: Darryl Granger MD COVID-19, RapidOrdered By: Mickey Lowry on 01-09-2021 SARS-CoV-2 (COVID-19) RNA MARTIN+probe Ql (Unsp spec) Not detected Not Detected [facility] Phone: Comment on above: Rapid NAAT: The [...] management decisions. Fact sheet for Healthcare Providers: https://www.fda.gov/media/324535/download Fact sheet for Patients: https://www.fda.gov/media/205096/download Methodology: Isothermal Nucleic Acid Amplification Specimen Description .NASOPHARYNGEAL SWAB [facility] Phone: [facility] Phone: EKG 12 LeadOrdered By: Tony Calabrese on 01-09-2021 Atrial Rate 86 BPM [facility] Phone: P [place] 76 degrees [facility] Phone: P-R Interval 130 ms [facility] Phone: Q-T Interval 402 ms [facility] Phone: QRS Duration 84 ms [facility] Phone: QTc Calculation (Bazett) 481 ms [facility] Phone: R [place] 74 degrees [facility] Phone: T [place] 67 degrees [facility] Phone: Ventricular Rate 86 BPM [employer] Phone: Normal sinus rhythm Normal ECG [facility] Phone: Paul, Mhpn Incoming Ekg Results From [employer] Walker - 01/09/2021 6:35 AM EDT Normal sinus rhythm Normal [facility] Phone: [facility] Phone: FL LESS THAN 1 HOURon 2020 [place] LESS THAN 1 HOUR Radiology exam is complete. No Radiologist dictation. Please follow up with ordering provider. Final result Normal [facility] [place] LESS THAN 1 HOUROrdered B y: Eugene Michelle on 01-09-2021 Radiology exam is complete. No Radiologist dictation. Please follow up with ordering provider. [facility] Phone: [facility] Phone: Microscopic UrinalysisOrdere d By: Isaias Lowry on 01-09-2021 - [facility] Phone: Amorphous, UA NOT REPORTED None [employer] [facility] Work Phone: Bacteria, UA 1+ Abnormal None [facility] Work Phone: Casts UA 2 TO 5 HYALINE /LPF [facility] Work Phone: Casts UA 2 TO 5 FINE GRANULAR /LPF [facility] Re.nooble [facility] Work Phone: Crystals, UA NOT REPORTED None /HPF [facility] Work Phone: Epithelial Cells UA 0 TO 2 /HPF [facility] Work Phone: Interpretation and review of laboratory results Abnormal [facility] Phone: Mucus, UA RARE Abnormal None [facility] Phone: Other Observations UA NOT REPORTED Abnormal NOT REQ. M [facility] [employer] Work Phone: RBC, UA 5 TO 10 [facility] [employer] Work Phone: Renal Epithelial, UA 2 TO 5 0 /HPF [facility] [employer] Work Phone: Trichomonas, UA NOT REPORTED None [facility] Work Phone: WBC, UA 5 TO 10 0 /HPF [facility] Work Phone: Yeast, UA NOT REPORTED None [facility] Work Phone: [facility] Work Phone: [id number] 01-09-2021 SARS-CoV-2 (COVID-19) RNA MARTIN+probe Ql (Unsp spec) Not detected Normal NOTDET [facility] Comment on above: Result Comment: Rapid NAAT: [...] management decisions. Fact sheet for Healthcare Providers: https://www.fda.gov/media/445162/download Fact sheet for Patients: https://www.fda.gov/media/884345/download Methodology: Isothermal Nucleic Acid Amplification Performed By: #### C OVRB #### [facility] [address] [place] [address] Volunteer Services Supervisor: Darryl Granger MD UA w/Reflex Cultureon 2020 Bilirubin, SemiQt,Ur Negative Normal NEG [facility] Comment on above: Performed By: #### C DP, BMPX #### [facility] [address] [place] [address] Volunteer Services Supervisor: Darryl Granger MD Blood, Urine 2+ Abnormal NEG [facility] Comment on above: Performed By: #### C DP, BMPX #### [facility] [address] [place] [address] Volunteer Services Supervisor: Darryl Granger MD Clarity (U) HAZY Abnormal CLEAR [facility] Comment on above: Performed By: #### C DP, BMPX #### [facility] [address] [place] [address] Volunteer Services Supervisor: Darryl Granger MD Color (U) YELLOW Normal YEL [facility] Comment on above: Performed By: #### C DP, BMPX #### [facility] [address] [place], [place] [phone] Volunteer Services Supervisor: Darryl Granger MD Comment Normal [facility] Comment on above: Performed By: #### C DP, BMPX #### [facility] [address] [place], [place] [phone] Volunteer Services Supervisor: Darryl Granger MD Glucose Ql (U) Negative Normal NEG [facility] Comment on above: Performed By: #### C DP, BMPX #### [facility] [address] [place] [address] Volunteer Services Supervisor: Darryl Granger MD Ketones Ql (U) Negative Normal NEG [facility] Comment on above: Performed By: #### C DP, BMPX #### [facility] [address] [place] [address] Volunteer Services Supervisor: Darryl Granger MD Leukocyte esterase Test strip Ql (U) Negative Normal NEG [facility] Comment on above: Performed By: #### C DP, BMPX #### [facility] [address] [place] [address] Volunteer Services Supervisor: Darryl Granger MD Nitrite,Ur Negative Normal NEG [facility] Comment on above: Performed By: #### C DP, BMPX #### [facility] [address] [place], [place] [phone] Volunteer Services Supervisor: Darryl Granger MD PH,Ur 5.0 Normal 5.0-8.[address] [facility] Comment on above: Performed By: #### C DP, BMPX #### [facility] [address] [place], [place] [address] Volunteer Services Supervisor: aDrryl Granger MD Protein Ql (U) 1+ Abnormal NEG [facility] Comment on above: Performed By: #### C DP, BMPX #### [facility] [address] [place], [place] [phone] Volunteer Services Supervisor: Darryl Granger MD Spec. [place],Ur 1.025 Normal 1.005-1.030 [facility] Comment on above: Performed By: #### C DP, BMPX #### [facility] [address] [place] [address] Volunteer Services Supervisor: Darryl Granger MD Urobilinogen,Ur Normal Normal NORM [facility] Comment on above: Performed By: #### C DP, BMPX #### [facility] [address] [place] [address] Volunteer Services Supervisor: Darryl Granger MD Urinalysis Reflex to Culture Ordered By: Isaias Lowry on 01-09-2021 Bilirubin Urine Negative NEGATIVE [facility] Work Phone: Color, UA YELLOW YELLOW [facility] Work Phone: Glucose, Ur Negative NEGATIVE [facility] Work Phone: Interpretation and review of laboratory results Abnormal [facility] Work Phone: Ketones Ql (U) Negative NEGATIVE [facility] Work Phone: Leukocyte esterase Test strip Ql (U) Negative NEGATIVE [facility] Work Phone: Nitrite, Urine Negative NEGATIVE [facility] Work Phone: pH, UA 5.0 [facility] Work Phone: Protein, UA 1+ Abnormal NEGATIVE [facility] Phone: Specific [place], UA 1.025 [employer] Phone: Turbidity UA HAZY Abnormal CLEAR [facility] Phone: Urinalysis Comments [facility] Phone: Urine Hgb 2+ Abnormal NEGATIVE [facility] Phone: Urobilinogen, Urine Normal Normal [facility] Phone: [facility] Phone: Urinalysis,Microon 1 ----- Normal [facility] Comment on above: Performed By: #### H H #### [facility] [address] [place] [address] Volunteer Services Supervisor: Darryl Granger MD Bacteria 1+ Abnormal NONE [facility] Comment on above: Performed By: #### H H #### [facility] [address] [place] [phone] Volunteer Services Supervisor: Darryl Granger MD Casts 2 TO 5 [facility] Comment on above: Result Comment: HYAL INE 2 TO 5 FINE GRANULAR Performed By: #### H H #### [facility] [address] [place] [address] Volunteer Services Supervisor: Darryl Granger MD Epithelial cells LM Ql (Urine sed) 0 TO 2 [facility] Comment on above: Performed By: #### H H #### [facility] [address] [place] [address] Volunteer Services Supervisor: Darryl Granger MD Epithelial, Renal 2 TO 5 Normal 0 [facility] Comment on above: Performed By: #### H H #### [facility] [address] [place] [phone] Volunteer Services Supervisor: Darryl Granger MD Mucus Strands RARE Abnormal NONE [facility] Comment on above: Performed By: #### H H #### [facility] [address] [place], [place] [phone] Volunteer Services Supervisor: Darryl Granger MD Urine RBC's 5 TO 10 Normal 0-[address] [facility] Comment on above: Performed By: #### H H #### [facility] [address] [place], [place] [phone] Volunteer Services Supervisor: Darryl Granger MD Urine WBC's 5 TO 10 Normal [address] [facility] Comment on above: Performed By: #### H H #### [facility] [address] [place], [place] [phone] Volunteer Services Supervisor: Darryl Granger MD Amorphous sediment LM Ql (Urine sed) NOT REPORTED Normal [facility] Comment on above: Performed By: #### H H #### [facility] [address] [place], [place] [phone] Volunteer Services Supervisor: Darryl Granger MD Crystals LM Nom (Urine sed) NOT REPORTED Normal [facility] Comment on above: Performed By: #### H H #### [facility] [address] [place], [place] [phone] Volunteer Services Supervisor: Darryl Granger MD Other Observations NOT REPORTED Normal NREQ [facility] Comment on above: Performed By: #### H H #### [facility] [address] [place], [place] [phone] Volunteer Services Supervisor: Darryl Granger MD Trichomonas NOT REPORTED Normal NONE [facility] Comment on above: Performed By: #### H H #### [facility] [address] [place], [place] [phone] Volunteer Services Supervisor: Darryl Granger MD Yeast NOT REPORTED Normal NONE [facility] Comment on above: Performed By: #### H H #### [facility] [address] [facility] [place] [address] Volunteer Services Supervisor: Darryl Granger MD APTTon 01-08-2021 aPTT Coag (Bld) [Time] 26.9 s Normal 23.9-33.8 [facility] Comment on above: Result Comment: IV Heparin Therapy Range: 62.0-94.0 Performed By: #### C DP, BMPX #### [facility] [address] [place] [address] Volunteer Services Supervisor: Darryl Granger MD APTTOrdered By: Jaclyn Calabrese on 01-08-2021 aPTT Coag (Bld) [Time] 26.9 s [facility] Work Phone: Comment on above: IV Heparin Therapy Range: 62.0-94.0 Basic Metab w/rfx MGon 01-08 (cont.) Normal [facility] Comment on above: Result Comment: Aver age GFR for 70 or more years old: 75 mL/min/1.73sq m Chronic Kidney Disease: <60 mL/min/1.73sq m Kidney failure: <15 mL/min/1.73sq m eGFR calculated using average adult body mass. Additional eGFR calculator available at: http://www.LurnQ/multiple_crcl_2012.htm Performed By: #### C DP, BMPX #### [facility] [address] [place] [address] Volunteer Services Supervisor: Darryl Granger MD BUN/CRE Ratio 9 Normal 9-20 [facility] Comment on above: Performed By: #### C DP, BMPX #### [facility] [address] [place] [address] Volunteer Services Supervisor: Darryl Granger MD GFR, Amer 40 mL/min Low >60 [facility] Comment on above: Performed By: #### C DP, BMPX #### [facility] [address] [place] [address] Volunteer Services Supervisor: Darryl Granger MD GFR,non Amer 33 mL/min Low >60 [facility] Comment on above: Performed By: #### C DP, BMPX #### [facility] [address] [place], [place] [phone] Volunteer Services Supervisor: Darryl Granger MD Urea nitrogen [Mass/Vol] 14 mg/dL Normal 8-[address] [facility] Comment on above: Performed By: #### C DP, BMPX #### [facility] [address] [place], [place] [phone] Volunteer Services Supervisor: Darryl Granger MD Staging: NOT REPORTED Normal [facility] Comment on above: Performed By: #### C DP, BMPX #### [facility] [address] [place], [place] [phone] Volunteer Services Supervisor: Darryl Granger MD Basic Metab w/rfx MGOrdered By: Jaclyn Calabrese on 01-08-2021 Anion gap [Moles/Vol] 13 mmol/L Normal 9-17 [facility] [employer] Work Phone: Comment on above: Performed By: #### C DP, BMPX #### [facility] [address] [place], [place] [phone] Volunteer Services Supervisor: Darryl Granger MD Calcium [Mass/Vol] 9.3 mg/dL Normal 8.6-10.4 [facility] Work Phone: Comment on above: Performed By: #### C DP, BMPX #### [facility] [address] [place], [place] [phone] Volunteer Services Supervisor: Darryl Granger MD Chloride [Moles/Vol] 100 mmol/L Normal 98-107 [facility] [employer] Work Phone: Comment on above: Performed By: #### C DP, BMPX #### [facility] [address] [place], [place] [phone] Volunteer Services Supervisor: Darryl Granger MD CO2 [Moles/Vol] 23 mmol/L Normal 20-31 [facility] Work Phone: Comment on above: Performed By: #### C DP, BMPX #### [facility] [address] [place] [address] Volunteer Services Supervisor: Darryl Granger MD Creatinine [Mass/Vol] 1.54 mg/dL High 0.50-0.90 [facility] [employer] Work Phone: Comment on above: Performed By: #### C DP, BMPX #### [facility] [address] [place] [address] Volunteer Services Supervisor: Darryl Granger MD Glucose [Mass/Vol] 150 mg/dL High 70-99 [facility] Work Phone: Comment on above: Performed By: #### C DP, BMPX #### [facility] [address] [place] [address] Volunteer Services Supervisor: Darryl Granger MD Potassium [Moles/Vol] 3.9 mmol/L Normal 3.7-5.3 [facility] [employer] Work Phone: Comment on above: Performed By: #### C DP, BMPX #### [facility] [address] [place] [address] Volunteer Services Supervisor: Darryl Granger MD Sodium [Moles/Vol] 136 mmol/L Normal 135-144 [facility] Work Phone: Comment on above: Performed By: #### C DP, BMPX #### [facility] [address] [place] [address] Volunteer Services Supervisor: Darryl Granger MD Basic Metabolic Panel w/ Ref ignacio to MGOrdered By: Jaclyn Calabrese on 01-08-2021 GFR 40 mL/min Low >60 [facility] [employer] Work Phone: GFR Non- 33 mL/min Low >60 [facility] Phone: GFR/1.73 sq M.predicted MDRD (S/P/Bld) [Vol rate/Area] [facility] Phone: Comment on above: Average GFR for 70 o r more years old: 75 mL/min/1.73sq m Chronic Kidney Disease: <60 mL/min/1.73sq m Kidney failure: <15 mL/min/1.73sq m eGFR calculated using average adult body mass. Additional eGFR calculator available at: http://www.LurnQ/multiple_crcl_2012.htm GFR/1.73 sq M.predicted MDRD (S/P/Bld) [Vol rate/Area] NOT REPORTED [facility] Phone: Interpretation and review of laboratory results Abnormal [facility] Phone: Urea nitrogen (BldV) [Mass/Vol] 14 mg/dL 8 - 23 mg/dL [facility] Phone: Urea nitrogen/Creatinine (Bld) [Mass ratio] 9 [facility] Phone: [facility] Phone: CBC Auto DifferentialOrdered By: Jaclyn Calabrese on 01-08-2021 Absolute Eos # 0.10 [employer] [facility] Work Phone: Absolute Immature Granulocyte NOT REPORTED [facility] Phone: Absolute Lymph # 3.90 [employer] [facility] Work Phone: Absolute [place] # 0.50 [employer] [facility] Work Phone: Basophils (Bld) [#/Vol] 0.00 10*3/uL [employer] Work Phone: Basophils/100 WBC (Bld) 0 % 0 - 2 % [facility] Phone: Differential Type YES [facility] Work Phone: Eosinophils/100 WBC (Bld) 1 % 0 - 5 % [facility] Phone: Hematocrit (Bld) [Volume fraction] 34.7 % Low 36 - 46 % [facility] Phone: Hemoglobin.gastrointes tinal spec 1 Ql (Stl) 11.5 g/dL Low 12.0 - 16.0 g/dL [facility] Phone: Immature Granulocytes NOT REPORTED 0 % M [employer] Phone: Interpretation and review of laboratory results Abnormal [facility] Phone: Lymphocytes/100 WBC (Bld) 41 % High 15 - 40 % [facility] Phone: MCH (RBC) [Entitic mass] 28.2 pg 26 - 34 pg [facility] Phone: MCHC (RBC) [Mass/Vol] 33.3 g/dL 31 - 37 g/dL [facility] [employer] Phone: MCV (RBC) [Entitic vol] 84.8 fL 80 - 100 fL [facility] Phone: Monocytes/100 WBC (Bld) 5 % 4 - 8 % [facility] Phone: NRBC Automated NOT REPORTED per 100 WBC [facility] Work Phone: Platelet distribution width (Bld) [Ratio] 15.9 % High 12.1 - 15.2 % [facility] Phone: Platelet Estimate NOT REPORTED [facility] Phone: Platelet mean volume (Bld) [Entitic vol] NOT REPORTED 6.0 - 12.0 fL [facility] Phone: Platelets (Bld) [#/Vol] 215 10*3/uL [facility] Phone: RBC (Bld) [#/Vol] 4.09 10*6/uL 4.0 - 5.2 m/uL [facility] Work Phone: RBC (Bld) [#/Vol] NOT REPORTED [facility] Work Phone: Segmented neutrophils/100 WBC (Bld) 53 % 47 - 75 % [facility] Work Phone: Segs Absolute 5.10 [facility] [employer] Work Phone: WBC (Bld) [#/Vol] 9.6 10*3/uL [facility] Work Phone: WBC (Bld) [#/Vol] NOT REPORTED [facility] Phone: [facility] Work Phone: CBC with Diffon 01-08-2021 Abs. Basophil 0.00 k/uL Normal 0.0-0.2 [facility] Comment on above: Performed By: #### C DP, BMPX #### [facility] [address] [place] [address] Volunteer Services Supervisor: Darryl Granger MD Abs.Neutrophil (Seg) 5.10 k/uL Normal 2.5-7.0 [facility] Comment on above: Performed By: #### C DP, BMPX #### [facility] [address] [place] [address] Volunteer Services Supervisor: Darryl Granger MD Auto Diff Performed YES Normal [facility] Comment on above: Performed By: #### C DP, BMPX #### [facility] [address] [place] [address] Volunteer Services Supervisor: Darryl Granger MD Basophils/100 WBC (Bld) 0 % Normal 0-[address] [facility] Comment on above: Performed By: #### C DP, BMPX #### [facility] [address] [place] [address] Volunteer Services Supervisor: Darryl Granger MD Eosinophils (Bld) [#/Vol] 0.10 10*3/uL Normal 0.0-0.[address] [facility] Comment on above: Performed By: #### C DP, BMPX #### [facility] [address] [place], [place] [phone] Volunteer Services Supervisor: Darryl Granger MD Eosinophils/100 WBC (Bld) 1 % Normal 0-[address] [facility] Comment on above: Performed By: #### C DP, BMPX #### [facility] [address] [place] [id number] Volunteer Services Supervisor: Darryl Granger MD Erythrocyte distribution width (RBC) [Ratio] 15.9 % High 12.1-15.[address] [facility] Comment on above: Performed By: #### C DP, BMPX #### [facility] [address] [place] [phone] Volunteer Services Supervisor: Darryl Granger MD Hematocrit (Bld) [Volume fraction] 34.7 % Low 36-[address] [facility] Comment on above: Performed By: #### C DP, BMPX #### [facility] [address] [place] [phone] Volunteer Services Supervisor: Darryl Granger MD Hemoglobin (Bld) [Mass/Vol] 11.5 g/dL Low 12.0-16.[address] [facility] Comment on above: Performed By: #### C DP, BMPX #### [facility] [address] [place] [phone] Volunteer Services Supervisor: Darryl Granger MD Lymphocytes (Bld) [#/Vol] 3.90 10*3/uL Normal 1.0-4.[address] [facility] Comment on above: Performed By: #### C DP, BMPX #### [facility] [address] [place] [address] Volunteer Services Supervisor: Darryl Granger MD Lymphocytes/100 WBC (Bld) 41 % High 15-[address] [facility] Comment on above: Performed By: #### C DP, BMPX #### [facility] [address] [place] [address] Volunteer Services Supervisor: Darryl Granger MD MCH (RBC) [Entitic mass] 28.2 pg Normal 26-[address] [facility] Comment on above: Performed By: #### C DP, BMPX #### [facility] [address] [place] [phone] Volunteer Services Supervisor: Darryl Granger MD MCHC (RBC) [Mass/Vol] 33.3 g/dL Normal 31-37 [facility] Comment on above: Performed By: #### C DP, BMPX #### [facility] [address] [place] [address] Volunteer Services Supervisor: Darryl Granger MD MCV (RBC) [Entitic vol] 84.8 fL Normal 80-[address] [facility] Comment on above: Performed By: #### C DP, BMPX #### [facility] [address] [place] [address] Volunteer Services Supervisor: Darryl Granger MD Monocytes (Bld) [#/Vol] 0.50 10*3/uL Normal 0.0-1.[address] [facility] Comment on above: Performed By: #### C DP, BMPX #### [facility] [address] [place] [address] Volunteer Services Supervisor: Darryl Granger MD Monocytes/100 WBC (Bld) 5 % Normal 4-[address] [facility] Comment on above: Performed By: #### C DP, BMPX #### [facility] [address] [place] [address] Volunteer Services Supervisor: Darryl Granger MD Neutrophil (Seg) 53 % Normal 47-75 [facility] Comment on above: Performed By: #### C DP, BMPX #### [facility] [address] [place], [place] [phone] Volunteer Services Supervisor: Darryl Granger MD Platelets (Bld) [#/Vol] 215 10*3/uL Normal 140-[address] [facility] Comment on above: Performed By: #### C DP, BMPX #### [facility] [address] [place] [address] Volunteer Services Supervisor: Darryl Granger MD RBC (Bld) [#/Vol] 4.09 10*6/uL Normal 4.0-5.[address] [facility] Comment on above: Performed By: #### C DP, BMPX #### [facility] [address] [place] [address] Volunteer Services Supervisor: Darryl Granger MD WBC (Bld) [#/Vol] 9.6 10*3/uL Normal 3.5-11.[address] [facility] Comment on above: Performed By: #### C DP, BMPX #### [facility] [address] [place] [address] Volunteer Services Supervisor: Darryl Granger MD Abs.Imm.Granulocyte NOT REPORTED Normal 0.00-0.30 [facility] Comment on above: Performed By: #### C DP, BMPX #### [facility] [address] [place] [address] Volunteer Services Supervisor: Darryl Granger MD Immature Granulocyte NOT REPORTED Normal 0 [facility] Comment on above: Performed By: #### C DP, BMPX #### [facility] [address] [place] [address] Volunteer Services Supervisor: Darryl Granger MD MPV NOT REPORTED Normal 6.0-12.0 [facility] Comment on above: Performed By: #### C DP, BMPX #### [facility] [address] [place] [address] Volunteer Services Supervisor: Darryl Granger MD NRBC Automated NOT REPORTED Normal [facility] Comment on above: Performed By: #### C DP, BMPX #### [facility] [address] [place] [address] Volunteer Services Supervisor: Darryl Granger MD Platelet Estimate NOT REPORTED Normal [facility] Comment on above: Performed By: #### C DP, BMPX #### [facility] [address] [place] [address] Volunteer Services Supervisor: Darryl Granger MD RBC morphology finding Nom (Bld) NOT REPORTED Normal [facility] Comment on above: Performed By: #### C DP, BMPX #### [facility] [address] [place] [address] Volunteer Services Supervisor: Darryl Granger MD WBC Morphology NOT REPORTED Normal [facility] Comment on above: Performed By: #### C DP, BMPX #### [facility] [address] [place] [phone] Volunteer Services Supervisor: Darryl Granger MD No Panel InformationOrdered By: Jaclyn Calabrese on 01-08-2021 [facility] Work Phone: PTon 01-08-2021 INR Coag (PPP) [Relative time] 1.0 {INR} Normal [facility] Comment on above: Result Comment: Non-therapeutic Range: INR = 0.9-1.2 Therapeutic Range: Moderate Anticoagulant Intensity: INR = 2.0-3.0 High Anticoagulant Intensity: INR = 2.5-3.5 Performed By: #### C DP, BMPX #### [facility] [address] [place] [address] Volunteer Services Supervisor: Darryl Granger MD PT Coag (PPP) [Time] 12.6 s Normal 11.5-14.2 [facility] Comment on above: Performed By: #### C DP, BMPX #### [facility] [address] [place] [address] Volunteer Services Supervisor: Darryl Granger MD Protime-INROrdered By: Tony Calabrese on 01-08-2021 INR Coag (Bld) [Relative time] 1.0 {INR} [facility] Phone: Comment on above: Non-therapeutic Range: INR = 0.9-1.2 Therapeutic Range: Moderate Anticoagulant Intensity: INR = 2.0-3.0 High Anticoagulant Intensity: INR = 2.5-3.5 PT Coag (PPP) [Time] 12.6 s [facility] Phone: XR CHEST PORTABLEon 01-09-20 XR CHEST [...] Ede Collazo DO 01/08/21 Final result Normal [facility] XR CHEST PORTABLEOrdered By: Jaclyn Calabrese on 01-08-2021 1. Nonacute portable chest. 2. Chronic changes and findings of mild COPD. [facility] Phone: EXAM: XR CHEST PORTABLE HISTORY: Reason [...] calcified granuloma the mid left lung field. [facility] Phone: Paul, Mhpn Incoming Radiant Results From [employer] - 01/08/2021 8:17 PM EDT EXAM: XR [...] Chronic changes and findings of mild COPD. [facility] Phone: [facility] Phone: XR HIP 2-3 VW W PELVIS [...] L Benítez MD 01/08/21 Final result Normal [facility] XR HIP 2-3 VW W PELVIS RIGHT Ordered By: Jaclyn Calabrese on 01-08-2021 Comminuted intertrochanteric fracture of the proximal right femur. [facility] Phone: EXAM: XR HIP 2-3 VW W [...] are maintained. The pubic symphysis is maintained. [facility] Phone: Paul, Mhpn Incoming Radiant Results From [employer] - 01/08/2021 7:47 PM EDT EXAM: XR [...] intertrochanteric fracture of the proximal right femur. [facility] Phone: [facility] Phone: Vital Signs Date Time Vital Sign Value Performing Clinician Facility 08-02-2023 10:48-0500 Blood Pressure Location Jaclyn SON [facility] 08-02-2023 10:48-0500 Diastolic blood pressure 80 mm[Hg] Jaclyn SON [facility] 08-02-2023 10:48-0500 Heart rate 82 /min Jaclyn HUY [facility] 08-02-2023 10:48-0500 SaO2% (BldA) [Mass fraction] 98 % Jaclyn SON [facility] 08-02-2023 10:48-0500 Systolic blood pressure 130 mm[Hg] Jaclyn SON [facility] 08-02-2023 10:40-0500 Blood Pressure Location Jaclyn SON [facility] 08-02-2023 10:40-0500 Diastolic blood pressure 80 mm[Hg] Jaclyn SON [facility] 08-02-2023 10:40-0500 Heart rate 82 /min Jaclyn SON [facility] 08-02-2023 10:40-0500 SaO2% (BldA) [Mass fraction] 98 % Jaclyn SON [facility] 08-02-2023 10:40-0500 Systolic blood pressure 130 mm[Hg] Jaclyn SON [facility] 02-25-2023 11:40-0400 Body height 154.94 cm Shannan Angelina [facility] Other 02-25-2023 11:40-0400 Body mass index (BMI) [Ratio] 18.51 kg/m2 Shannan Angelina [facility] 02-25-2023 11:40-0400 Body temperature 97.9 [degF] Shannan Angelina [facility] 02-25-2023 11:40-0400 Body weight 44.45 kg Shannan Angelina [facility] 02-25-2023 11:40-0400 Diastolic blood pressure 76 mm[Hg] Shannan Alfaro [facility] 02-25-2023 11:40-0400 Respiratory rate 18 /min Shannan Alfaro [facility] 02-25-2023 11:40-0400 SaO2% (BldA) [Mass fraction] 98 % Shannan Sawantmond [facility] 02-25-2023 11:40-0400 Systolic blood pressure 171 mm[Hg] Shannan Angelina [facility] 01-25-2023 13:06-0400 Blood Pressure Location [facility] 01-25-2023 13:06-0400 Diastolic blood pressure 80 mm[Hg] Jaclyn [facility] 01-25-2023 13:06-0400 Heart rate 83 /min Christchadder [facility] 01-25-2023 13:06-0400 Respiratory rate 16 /min Christchadder [facility] 01-25-2023 13:06-0400 SaO2% (BldA) [Mass fraction] 97 % Jaclyn [facility] 01-25-2023 13:06-0400 Systolic blood pressure 132 mm[Hg] Christchadder [facility] 10-22-2022 15:50-0400 Body height 154.94 cm Shannan Angelina [facility] 10-22-2022 15:50-0400 Body mass index (BMI) [Ratio] 17.23 kg/m2 Shannan Angelina [facility] 10-22-2022 15:50-0400 Body temperature 97.5 [degF] Shannan Alfaro [facility] 10-22-2022 15:50-0400 Body weight 41.37 kg Shannan Alfaro [facility] 10-22-2022 15:50-0400 Diastolic blood pressure 81 mm[Hg] Shannan Alfaro [facility] 10-22-2022 15:50-0400 Respiratory rate 16 /min Shannan Alfaro [facility] 10-22-2022 15:50-0400 SaO2% (BldA) [Mass fraction] 94 % Shannan Alfaro [facility] 10-22-2022 15:50-0400 Systolic blood pressure 165 mm[Hg] Shannan Alfaro [facility] 08-30-2022 14:06-0400 Blood Pressure Location [facility] 08-30-2022 14:06-0400 Diastolic blood pressure 80 mm[Hg] Jaclyn [facility] 08-30-2022 14:06-0400 Heart rate 71 /min Christchadder [facility] 08-30-2022 14:06-0400 Respiratory rate 16 /min Jaclyn [facility] 08-30-2022 14:06-0400 SaO2% (BldA) [Mass fraction] 97 % Jaclyn SON [facility] 08-30-2022 14:06-0400 Systolic blood pressure 152 mm[Hg] Jaclyn SON [facility] 08-06-2022 20:24-0500 Diastolic blood pressure 72 mm[Hg] Danie Lorna [facility] 08-06-2022 20:24-0500 Heart rate 79 /min Danie Lorna [facility] 08-06-2022 20:24-0500 Mean blood pressure 90 mm[Hg] Danie Lorna [facility] 08-06-2022 20:24-0500 Respiratory rate 25 /min Danie Lorna [facility] 08-06-2022 20:24-0500 SaO2% (BldA) [Mass fraction] 98 % Danie Lorna [facility] 08-06-2022 20:24-0500 Systolic blood pressure 125 mm[Hg] Danie Lorna [facility] 08-06-2022 19:01-0500 Body temperature 98.06 [degF] Danie Lorna [facility] 08-06-2022 19:01-0500 Diastolic blood pressure 80 mm[Hg] Danie Lorna [facility] 08-06-2022 19:01-0500 Heart rate 98 /min Danie Lorna [facility] 08-06-2022 19:01-0500 Respiratory rate 16 /min Danie Lorna [facility] 08-06-2022 19:01-0500 SaO2% (BldA) [Mass fraction] 99 % Danie Lorna [facility] 08-06-2022 19:01-0500 Systolic blood pressure 175 mm[Hg] Danie Lorna [facility] 08-06-2022 19:00-0500 Hourly Rounding Danie Lorna [facility] 08-06-2022 18:00-0500 Hourly Rounding Danie Lorna [facility] 08-06-2022 18:00-0500 Promise to Return Danie Lorna [facility] 08-02-2022 13:29-0500 Blood Pressure Location Jaclyn SON [facility] 08-02-2022 13:29-0500 Diastolic blood pressure 80 mm[Hg] Christchadder BROWN [facility] 08-02-2022 13:29-0500 Heart rate 77 /min Christchadder BROWN [facility] 08-02-2022 13:29-0500 SaO2% (BldA) [Mass fraction] 96 % Christchrista SON [facility] 08-02-2022 13:29-0500 Systolic blood pressure 140 mm[Hg] Christchadder BROWN [facility] 06-01-2022 19:20-0500 Body height 154.94 cm Radha Porter [facility] 06-01-2022 19:20-0500 Body mass index (BMI) [Ratio] 17.57 kg/m2 Radha Porter [facility] 06-01-2022 19:20-0500 Body temperature 97.5 [degF] Radha Porter [facility] 06-01-2022 19:20-0500 Body weight 42.18 kg Radha Porter [facility] 06-01-2022 19:20-0500 Diastolic blood pressure 88 mm[Hg] Radha Porter [facility] 06-01-2022 19:20-0500 Respiratory rate 16 /min Radha Porter [facility] 06-01-2022 19:20-0500 SaO2% (BldA) [Mass fraction] 100 % Radha Porter [facility] 06-01-2022 19:20-0500 Systolic blood pressure 156 mm[Hg] Radha Porter [facility] 03-15-2022 12:40-0400 Diastolic blood pressure 58 mm[Hg] MD Tony Son Work Phone: [facility] 03-15-2022 12:40-0400 Heart rate 75 /min MD Tony Son Work Phone: [facility] 03-15-2022 12:40-0400 SaO2% (BldA) [Mass fraction] 99 % MD Tony Son Work Phone: [facility] 03-15-2022 12:40-0400 Systolic blood pressure 121 mm[Hg] MD Tony Son Work Phone: [facility] 03-15-2022 10:20-0400 Body height 154.94 cm MD Tony Son Work Phone: [facility] 03-15-2022 10:20-0400 Body temperature 98.2 [degF] MD Tony Son Work Phone: [facility] 03-15-2022 10:20-0400 Body weight 42.18 kg MD Tony Son Work Phone: [facility] 03-15-2022 10:20-0400 Respiratory rate 16 /min MD Tony Son Work Phone: [facility] 01-21-2022 13:22-0400 Blood Pressure Location Jaclyn SON [facility] [place] 01-21-2022 13:22-0400 Diastolic blood pressure 80 mm[Hg] Jacobychrista SON [facility] [place] 01-21-2022 13:22-0400 Heart rate 72 /min Jaclyn SON [facility] [place] 01-21-2022 13:22-0400 Respiratory rate 16 /min Jaclyn SON [facility] [place] 01-21-2022 13:22-0400 SaO2% (BldA) [Mass fraction] 99 % Jacobychrista SON [facility] [place] 01-21-2022 13:22-0400 Systolic blood pressure 130 mm[Hg] Jacobychrista SON [facility] [place] 12-21-2021 14:45-0400 Body height 154.94 cm Darryl Soto [facility] 12-21-2021 14:45-0400 Body mass index (BMI) [Ratio] 17.57 kg/m2 Darryl Soto [facility] 12-21-2021 14:45-0400 Body weight 42.18 kg Darryl Soto [facility] 12-21-2021 14:45-0400 Diastolic blood pressure 73 mm[Hg] Darryl Soto [facility] 12-21-2021 14:45-0400 Systolic blood pressure 125 mm[Hg] Darryl Soto [facility] 12-21-2021 14:22-0400 Body weight 0 kg MD Tony Son Work Phone: [facility] 10-27-2021 12:10-0400 Blood Pressure Location Jaclyn SON [facility] [place] 10-27-2021 12:10-0400 Diastolic blood pressure 70 mm[Hg] Jaclyn SON [facility] [place] 10-27-2021 12:10-0400 Heart rate 90 /min Jaclyn SON [facility] [place] 10-27-2021 12:10-0400 Respiratory rate 16 /min Jaclyn SON [facility] [place] 10-27-2021 12:10-0400 SaO2% (BldA) [Mass fraction] 96 % Jaclyn SON [facility] [place] 10-27-2021 12:10-0400 Systolic blood pressure 120 mm[Hg] Jaclyn SON [facility] [place] 01-14-2021 07:47-0400 Body temperature 98.1 [degF] Jaclyn Calabrese MD Work Phone: [facility] Work Phone: 01-14-2021 07:47-0400 Diastolic blood pressure 62 mm[Hg] Jaclyn Calabrese MD Work Phone: [facility] Work Phone: 01-14-2021 07:47-0400 Heart rate 102 /min Jaclyn Calabrese MD Work Phone: [facility] Work Phone: 01-14-2021 07:47-0400 Respiratory rate 20 /min Jaclyn Calabrese MD Work Phone: [facility] Work Phone: 01-14-2021 07:47-0400 SaO2% (BldA) [Mass fraction] 92 % Jaclyn Calabrese MD Work Phone: [facility] Work Phone: 01-14-2021 07:47-0400 Systolic blood pressure 159 mm[Hg] Jaclyn Calabrese MD Work Phone: [facility] Work Phone: 01-13-2021 01:00-0400 Body mass index (BMI) [Ratio] 21.39 kg/m2 Jaclyn Calabrese MD Work Phone: [facility] Work Phone: 01-13-2021 01:00-0400 Body weight 51.35 kg Jaclyn Calabrese MD Work Phone: [facility] Work Phone: 01-09-2021 10:04-0400 Body height 154.9 cm Jaclyn Calabrese MD Work Phone: [facility] Work Phone: Encounters Encounter Date Encounter Type Care Provider Facility Start: 09-12-2025 ambulatory Jacobychrista SON [facility]reen [facility]y:[facility] Start: 09-11-2024 End: 09-11-2024 ambulatory Ronreal SON Facility:[facility] Start: 08-02-2023 End: 08-02-2023 Lab Drop off Jaclyn SON [facility] Start: 08-02-2023 End: 08-02-2023 Well adult monitoring check done Jaclyn SON [facility] Start: 08-02-2023 End: 08-02-2023 Patient encounter procedure Jacobychrista HUY [facility] [place] Start: 02-25-2023 End: 02-25-2023 ambulatory Shannan Angelina [facility] Start: 02-25-2023 Office outpatient vi sit 15 minutes Shannan Angelina [facility] Start: 01-25-2023 End: 01-25-2023 Patient encounter procedure Jaclyn SON [facility] Start: 10-22-2022 End: 10-22-2022 ambulatory Shannan Angelina [facility] Other Start: 10-22-2022 Office outpatient vi sit 15 minutes Shannan Angelina [facility] Start: 09-08-2022 End: 09-09-[address] DOCTOR BREAUX Facility: Start: 08-30-2022 End: 08-30-2022 Lab Drop off Jaclyn SON [facility] Start: 08-30-2022 End: 08-30-2022 Patient encounter procedure Jaclyn SON [facility] Start: 08-06-2022 End: 08-06-2022 Emergency department patient visit Danie Rothman [facility] Start: 08-06-2022 End: 08-06-2022 Patient encounter procedure Jaclyn SON [facility] Start: 08-02-2022 End: 08-02-2022 Patient encounter procedure Jaclyn SON [facility] Start: 08-02-2022 End: 08-02-2022 Well adult monitoring check done Jaclyn SON [facility] Start: 07-29-2022 End: 07-29-2022 Lab Drop off Jaclyn SON [facility] Start: 06-01-2022 End: 06-01-2022 ambulatory Radha Porter [facility] Start: 06-01-2022 Office outpatient vi sit 15 minutes aRdha Porter [facility] Start: 03-19-2022 End: 03-19-2022 ambulatory Darryl Soto [facility] Other Start: 03-19-2022 Telephone encounter Darryl Soto [facility] Start: 03-15-2022 End: 03-15-2022 ambulatory Chance Beavers Facility:[facility] Start: 03-15-2022 End: 03-15-2022 Admission to same day surgery center MD Tony Son Work Phone: [facility] Start: 03-15-2022 End: 03-15-2022 ambulatory MD Tony Son Work Phone: [facility] Work Phone: Start: 03-11-2022 End: 03-11-2022 ambulatory Chance Beavers Facility:[facility] Start: 03-11-2022 End: 03-11-2022 ambulatory MD Tony Son Work Phone: [facility] Work Phone: Start: 03-11-2022 End: 03-11-2022 Patient encounter procedure MD Tony Son Work Phone: [id number] Start: 02-19-2022 End: 02-19-2022 ambulatory Chance Beavers Facility:[facility] Start: 02-19-2022 End: 02-19-2022 ambulatory MD Tony Son Work Phone: [facility] Work Phone: Start: 02-19-2022 End: 02-19-2022 Departed Referred MD Tony Son Work Phone: [facility] Start: 01-29-2022 End: 01-29-2022 Lab Drop off Jaclyn SON [facility] Start: 01-29-2022 End: 01-29-2022 Patient encounter procedure Jaclyn SON [facility] [place] Start: 01-21-2022 End: 01-21-2022 Lab Drop off Jaclyn SON [facility] Start: 01-21-2022 End: 01-21-2022 Patient encounter procedure Jaclyn SON [facility] Start: 01-07-2022 End: 01-07-2022 ambulatory Tony Son Facility:[facility] Start: 01-07-2022 End: 01-07-2022 Patient encounter procedure DO Darryl Soto Work Phone: [facility] Start: 12-21-2021 End: 12-21-2021 ambulatory Darryl Soto [facility] Other Start: 12-21-2021 Office outpatient ne w 30 minutes Darryl Soto [facility] Start: 11-10-2021 End: 11-11-2021 ambulatory CATHY AKSAMIA Facility: Start: 10-27-2021 End: 10-27-2021 Patient encounter procedure Jaclyn SON [facility] Start: 09-18-2021 End: 09-18-2021 Patient encounter procedure Florentin WILLIS General Surgery Nill/Said Jessi Start: 04-03-2021 End: 04-06-2021 [facility] Start: 04-03-2021 End: 04-05-2021 Subsequent hospital visit by physician Cheri Hollins Rad 1 [facility] Comment on above: Closed displaced int ertrochanteric fracture of right femur with routine healing Start: 04-03-2021 End: 04-06-2021 ambulatory [facility] Start: 04-03-2021 End: 04-05-2021 Subsequent hospital visit by physician Jaclyn Son MD Work Phone: [facility] Start: 03-06-2021 End: 03-09-2021 [facility] Start: 03-06-2021 End: 03-09-2021 ambulatory JACLYN SON [facility] Start: 03-06-2021 End: 03-08-2021 Subsequent hospital visit by physician Jaclyn Son MD Work Phone: [facility] Radiology Start: 02-20-2021 ambulatory JACLYN SON [facility] Start: 01-23-2021 End: 01-26-2021 [facility] Start: 01-23-2021 End: 01-25-2021 Subsequent hospital visit by physician [facility] Additional Xray At [facility] Radiology Comment on above: Closed nondisplaced intertrochanteric fracture of right femur, initial encounter (HCC) Start: 01-23-2021 End: 01-26-2021 ambulatory [facility] Start: 01-23-2021 End: 01-25-2021 Subsequent hospital visit by physician Jaclyn Son MD Work Phone: [facility]iology Start: 01-08-2021 End: 01-14-2021 Evaluation and management of inpatient [facility] Start: 01-08-2021 End: 01-14-2021 Evaluation and management of inpatient Jaclyn Calabrese MD Work Phone: [facility] SURG TELEMETRY Comment on above: Closed fracture of r ight hip, initial encounter (HCC) (Primary Dx); Accidental fall, initial encounter; Closed hip fracture, right, initial encounter (HCC); Postoperative anemia; Renal insufficiency Procedures Date Procedure Procedure Detail Performing Clinician Start: 03-15-2022 Colonoscopy MD Tony sanchez Work Phone: Start: 03-15-2022 Colonoscopy Rod SON Comment on above: w/polypectomy @ [facility] Start: 09-09-2021 Colonoscopy Florentin BOATENG Start: 04-03-2021 [...] fixation using dynamic hip screw plate Florentin CLINEKaren SARS Antigen (LFIA) DO Darryl Soto Work Phone: SARS Antigen (LFIA) MD Tony Son Work Phone: Total abdominal hysterectomy Florentin CLINEKaren Plan of Treatment Date Care Activity Detail Author Start: 03-15-2022 [facility] Start: 01-11-2022 Colonoscopy DH Colonoscopy Diagnostic (Not Applicable) [facility] Start: 04-01-2021 Pneumococcal 65+ yea rs Vaccine (2 of 2 - PPSV23) Pneumococcal 65+ years Vaccine (2 of 2 - PPSV23) [facility] Phone: Start: 03-12-2021 COVID-19 Vaccine (3 - Pfizer booster) COVID-19 Vaccine (3 - Pfizer booster) [facility] Phone: Start: 02-11-2021 Influenza vaccination Flu vaccine (# 1) [facility] Phone: Start: 01-21-2021 End: 01-14-2022 Basic metabolic 2000 panel - Serum or Plasma Basic Metabolic Panel Lab Routine Renal insufficiency Expected: 01/21/2021, Expires: 01/14/2022 [facility] Phone: Comment on above: Expected: 01/21/2021 , Expires: 01/14/2022 Start: 01-21-2021 End: 01-14-2022 CBC W Auto Differential panel - Blood CBC Auto Differential Lab Routine Postoperative anemia Expected: 01/21/2021, Expires: 01/14/2022 [facility] Phone: Comment on above: Expected: 01/21/2021 , Expires: 01/14/2022 Start: 01-14-2021 End: 01-14-2021 Evaluation and management of inpatient 01/14/2021 Office Visit [facility] Start: 01-08-2021 Annual Wellness Visi t (AWV) Annual Wellness Visit (AWV) [facility] Phone: Start: 2004 Screening for osteoporosis DEXA (modify frequency per FRAX score) [facility] Phone: Start: 08-30-2004 Screening for osteoporosis DEXA (modify frequency per FRAX score) [facility] Phone: Start: 09-01-1999 Screening for malign ant neoplasm of breast Breast cancer screen [facility] Phone: Start: 09-01-1999 Screening for malign ant neoplasm of lung Low dose CT lung screening [facility] Phone: Start: 09-01-1999 Shingles Vaccine (1 of 2) Shingles Vaccine (1 of 2) [facility] Phone: Start: 1999 Screening for malign ant neoplasm of breast Breast cancer screen [facility] Phone: Start: 1999 Screening for malign ant neoplasm of lung Low dose CT lung screening [facility] Phone: Start: 1999 Shingles Vaccine (1 of 2) Shingles Vaccine (1 of 2) [facility] Phone: Start: 1994 Screening for malign ant neoplasm of colon Colon cancer screen colonoscopy [facility] Phone: Start: 08-30-1994 Screening for malign ant neoplasm of colon Colon cancer screen colonoscopy [facility] Phone: Start: 1968 DTaP/Tdap/Td vaccine (1 - Tdap) DTaP/Tdap/Td vaccine (1 - Tdap) [facility] Phone: Start: 08-30-1968 DTaP/Tdap/Td vaccine (1 - Tdap) DTaP/Tdap/Td vaccine (1 - Tdap) [facility] Phone: Start: 09-01-1959 Lipid panel Lipid screen [facility] [employer] Phone: Start: 1959 Lipid panel Lipid screen [facility] Work Phone: Start: 1949 Hepatitis C screening Hepatitis C [facility] Phone: Start: 1949 Hepatitis C screening Hepatitis C [facility] Phone: Acapella Acapella Respira tory Care Routine 0800, 1200, 1600, 2000 (respiratory use only) until discontinued starting 01/10/2021 [facility] Phone: Comment on above: 0800, 1200, 1600, 20 00 (respiratory use only) until discontinued starting 01/10/2021 Capnography Capnography Resp iratory Care Routine Every 4hr until discontinued starting 01/09/2021 [facility] Phone: Comment on above: Every 4hr until disc ontinued starting 01/09/2021 End: 01-14-2021 COVID-19, Rapid COVID-19, Rapid Microbiology Routine One Time for 1 Occurrences starting 01/14/2021 until 01/14/2021 [facility] Phone: Comment on above: One Time for 1 Occur rences starting 01/14/2021 until 01/14/2021 Culture, Blood 1 Culture, Blood 1 Microbiology STAT 01/11/2021 8:49 PM EDT [facility] Nasal Cannula Oxygen Nasal Cannu la Oxygen Respiratory Care Routine Daily until discontinued starting 01/09/2021 [facility] Phone: Comment on above: Daily until disconti nued starting 01/09/2021 Oxygen therapy [[facility] Data Set] [facility] Comment on above: Daily until disconti nued starting 01/08/2021 Daily until disconti nued starting 01/09/2021 Spirometry panel Incentive salazar metry Respiratory Care Routine Every 2hr while awake until discontinued starting 01/09/2021 [employer] Work Phone: Comment on above: Every 2hr while awak e until discontinued starting 01/09/2021 Immunizations Immunization Date Immunization Notes Care Provider Fa jihan 02-08-2023 influenza virus vacc ine, unspecified formulation Jaclyn SON [facility] 02-08-2023 tetanus toxoid, redu omar diphtheria toxoid, and acellular pertussis vaccine, adsorbed Jacobychrista SON [facility] 01-26-2023 [facility] 03-18-2022 SARS-CoV-2 (COVID-19 ) [id number] Jaclyn SON [facility] 03-12-2022 influenza virus vacc ine, unspecified formulation Jaclyn SON [facility] 04-21-2021 pneumococcal polysaccharide vaccine, 23 valent Florentin WILLIS [facility] 04-09-2021 COVID-19, mRNA, LNP- S, PF, 30 mcg/0.3 mL dose Florentin NILL [facility] [place] 03-12-2021 influenza, high dose seasonal, preservative-free Florentin NILL [facility] 09-10-2020 COVID-19, Pfizer, PF , 30mcg/0.3mL Jaclyn Calabrese MD Work Phone: [facility] Work Phone: 08-22-2020 COVID-19, Pfizer, PF , 30mcg/0.3mL Jaclyn Calabrese MD Work Phone: [facility] Work Phone: 04-01-2020 influenza, high dose seasonal, preservative-free Jaclyn Calabrese MD Work Phone: [facility] Work Phone: 04-01-2020 pneumococcal conjuga te vaccine, 13 valent Jaclyn Calabrese MD Work Phone: [facility] Work Phone: Payers Date Payer Category Payer Self-pay [id number] 1960 Medicaid [id number] 1. [id number] 1960 Medicare [id number] 1. [id number] 1950 Unknown [id number] 2.16.8 [id number] 1950 Unknown [id number] 2.16.8 [id number] 1949 Unknown [id number] 2.16.8 [id number] 1949 Unknown [id number] 2.16.8 40.1.980755.3.579.2.174 1949 Unknown [id number] 2.16.8 40.1.145756.3.579.2.174 1949 Unknown [id number] 2.16.84 0.1.969632.3.579.2.174 1949 Unknown [id number] 2.16.84 0.1.918260.3.579.2.174 1949 Unknown [id number] 2.16.84 0.1.129124.3.579.2.174 1949 Unknown [id number] 2.16.84 0.1.588214.3.579.2.593 1949 Unknown [id number] 2.16.84 0.1.633389.3.579.2.593 1949 Unknown [id number] 2.16.8 40.1.725776.3.579.2.727 1949 Unknown [id number] 2.16.8 40.1.955561.3.579.2.727 1949 Unknown [id number] 2.16.8 40.1.460773.3.579.2.727 Unknown [id number] 2.16.8 40.1.730975.3.579.2.531 Unknown [id number] 2.16.8 40.1.645345.3.579.2.531 Unknown [id number] 2.16.8 40.1.150919.3.579.2.531 Unknown [id number] 2.16.8 [id number] Social History Date Type Detail Facility Start: 01-12-2021 Tobacco smoking stat [facility] Current every day smoker [facility] Phone: Start: 01-12-2021 Cigarettes smoked current (pack per day) - Reported [facility] Phone: Start: 01-12-2021 Alcohol intake Current non-dr skein washer of alcohol (finding) [facility] Phone: Start: 1950 End: 1950 Sex Assigned At Not on file [facility] Phone: Exposure to SARS-CoV -2 (event) Not sure [facility] Start: 08-18-2021 End: 01-25-2023 Tobacco smoking status Light tobacco smoker (finding) [facility] Tobacco smoking status Never [facility] Comment on above: Smokes 1 pack per da y. Sex Assigned At Female [facility] [place] Start: 1950 Sex Assigned At Female [facility] Start: 03-15-2022 End: 03-15-2022 Tobacco smoking status NHIS Smoker (finding) [facility] Start: 08-02-2023 Tobacco smoking status Heavy t obacco smoker (finding) [facility] Comment on above: Smokes 1 pack per da y. Medical Equipment Procedure Code Equipment Code Equipment Origin al Text Equipment Identifier Dates Nail Im [id number] [id number] 130deg Lng R Prox Fem Grn Ti Carol [id number] Start: 01-09-2021 Screw Bne L42mm Dia5mm Tib Lt Grn Ti St Carol Navneet Full Thrd [id number] Start: 01-09-2021 Blade Im L85mm Dia10.35mm Prox Fem G Ti Carol Fen Arleen For [id number] Start: 01-09-2021 Goals Date Patient Goal Desired Activity /State Functional Status Date Assessment Result Facility 08-02-2023 Functional Status N/A [facility] 01-25-2023 Functional Status N/A [facility] 08-30-2022 Functional Status N/A [facility] 08-06-2022 Functional Status N/A [facility] 08-02-2022 Functional Status N/A [facility] 01-21-2022 Functional Status N/A [facility] Clinical Notes 01-09-2021 to 09-11-2024 Note Date & Type Note Facility 09-11-2024 Note Patient Education Nephrology Chronic Kidney Disease, Adult Chronic kidney disease (CKD) occurs when the kidneys are slowly and permanently damaged over a long period of time. The kidneys are a pair of organs that do many important jobs in the body, including: ??? Removing waste and extra fluid from the blood to make urine. ??? Making hormones that maintain the amount of fluid in tissues and blood vessels. ??? Maintaining the right amount of fluids and [...] high blood pressure (hypertension). Other causes include: ??? Cardiovascular diseases. These affect the heart and blood vessels. ??? Kidney diseases. These include: ? Glomerulonephritis, or inflammation of the tiny filters in the kidneys. ? Interstitial nephritis. This is swelling of the small tubes of the kidneys and of the surrounding structures. ? Polycystic kidney disease, in which clusters of fluid-filled sacs form within the kidneys. ? Renal vascular disease. This includes disorders that affect the arteries and veins of the kidneys. ??? Diseases that affect the body's defense system (immune system). ??? A problem with urine flow. This may be caused by: ? Kidney stones. ? Cancer. ? An enlarged prostate, in males. ??? A kidney infection or urinary tract infection (UTI) that keeps coming back. ??? Vasculitis. This is swelling or inflammation of the blood vessels. What increases the risk? Your chances of having kidney disease increase with age. The following factors may make you more likely to develop this condition: ??? A family history of kidney disease or kidney failure. Kidney failure means the kidneys can no longer work right. ??? Certain genetic diseases. ??? Taking medicines often that are damaging to the kidneys. ??? Being around or being in contact with toxic substances. ??? Obesity. ??? A history of tobacco use. What are the signs or symptoms? Symptoms of this condition include: ??? Feeling very tired (lethargic) and having less energy. ??? Swelling, or edema, of the face, legs, ankles, or feet. ??? Nausea or vomiting, or loss of appetite. ??? Confusion or trouble concentrating. ??? Muscle twitches and cramps, especially in the legs. ??? Dry, itchy skin. ??? A metallic taste in the mouth. ??? Producing less urine, or producing more urine (especially at night). ??? Shortness of breath. ??? Trouble sleeping. CKD may also result in not having enough red blood cells or hemoglobin in the blood (anemia) or having weak bones (bone disease). Symptoms develop slowly and may not be obvious until the kidney damage becomes severe. It is possible to have kidney disease for years without having symptoms. How is this diagnosed? This condition may be diagnosed based on: ??? Blood tests. ??? Urine tests. ??? Imaging tests, such as an ultrasound or a CT scan. ??? A kidney biopsy. This involves removing a sample of kidney tissue to be looked at under a microscope. Results from these tests will help to determine how serious the CKD is. How is this treated? There is no cure for most cases of this condition, but treatment usually relieves symptoms and prevents or slows the worsening of the disease. Treatment may include: ??? Diet changes, which may require you to avoid alcohol and foods that are high in salt, potassium, phosphorous, and protein. ??? Medicines. These may: ? Lower blood pressure. ? Control blood sugar (glucose). ? Relieve anemia. ? Relieve swelling. ? Protect your bones. ? Improve the balance of salts and minerals in your blood (electrolytes). ??? Dialysis, which is a type of treatment that removes toxic waste from the body. It may be needed if you have kidney failure. ??? Managing any other conditions that are causing your CKD or making it worse. Follow these instructions at home: Medicines ??? Take cicu-ssf-qwvchss and prescription medicines only as told by your health care provider. The amount of some medicines that you take may need to be changed. ??? Do not take any new medicines unless approved by your health care provider. Many medicines can make kidney damage worse. ??? Do not take any vitamin and mineral supplements unless approved by your health care provider. Many nutritional supplements can make kidney damage worse. Lifestyle ??? Do not use any products that contain nicotine or tobac (more content not included)... [facility] 09-08-2024 Note Patient Education Pulmonary Medicine Chronic Obstructive Pulmonary [...] causes? This condition may be caused by: ??? Smoking. This is the most common cause. ??? Certain genes passed down through families. What increases the risk? The following factors may make you more likely to develop this condition: ??? Being exposed to secondhand smoke from cigarettes, pipes, or cigars. ??? Being exposed to chemicals and other irritants, such as fumes and dust in the work environment. ??? Having chronic lung conditions or infections. What are the signs or symptoms? Symptoms of this condition include: ??? Shortness of breath, especially during physical activity. ??? Chronic cough with a large amount of thick mucus. Sometimes, the cough may not have any mucus (dry cough). ??? Wheezing and rapid breathing. ??? Nicholas or bluish discoloration (cyanosis) of the skin, especially in the fingers, toes, or lips. ??? Feeling tired (fatigue). ??? Weight loss. ??? Chest tightness. ??? Frequent infections. ??? Episodes when breathing symptoms become much worse (exacerbations). At the later stages of this disease, you may have swelling in the ankles, feet, or legs. How is this diagnosed? This condition is diagnosed based on: ??? Your medical history. ??? A physical exam. You may also have tests, including: ??? Lung (pulmonary) function tests. This may include a spirometry test, which measures your ability to exhale properly. ??? Chest X-ray. ??? CT scan. ??? Blood tests. How is this treated? This condition may be treated with: ??? Medicines. These may include inhaled rescue medicines to treat acute exacerbations as well as medicines that you take long-term (maintenance medicines) to prevent flare-ups of COPD. ? Bronchodilators help treat COPD by dilating the airways to allow increased airflow and make your breathing more comfortable. ? Steroids can reduce airway inflammation and help prevent exacerbations. ??? Smoking cessation. If you smoke, your health care provider may ask you to quit, and may also recommend therapy or replacement products to help you quit. ??? Pulmonary rehabilitation. This may involve working with a team of health care providers and specialists, such as respiratory, occupational, and physical therapists. ??? Exercise and physical activity. These are beneficial for nearly all people with COPD. ??? Nutrition therapy to gain weight, if you are underweight. ??? Oxygen. Supplemental oxygen therapy is only helpful if you have a low oxygen level in your blood (hypoxemia). ??? Lung surgery or transplant. ??? Palliative care. This is to help people with COPD feel comfortable when treatment is no longer working. Follow these instructions at home: Medicines ??? Take rejk-zua-ocbutgb and prescription medicines only as told by your health care provider. This includes inhaled medicines and pills. ??? Talk to your health care provider before taking any cough or allergy medicines. You may need to avoid certain medicines that dry out your airways. Lifestyle ??? If you smoke, the most important thing that you can do is to stop smoking. Continuing to smoke will cause the disease to progress faster. ??? Do not use any products that contain nicotine or tobacco. These products include cigarettes, chewing tobacco, and vaping devices, such as e-cigarettes. If you need help quitting, ask your health care provider. ??? Avoid exposure to things that irritate your lungs, such as smoke, chemicals, and fumes. ??? Stay active, but balance activity with periods of rest. Exercise and physical activity will help you maintain your ability to do things you want to do. ??? Learn and use relaxation techniques to manage stress and to control your breathing. ??? Get the right amount of sleep and get quality sleep. Most adults need 7 or more hours per night. ??? Eat healthy foods. Eating smaller, more frequent meals and resting before meals may help you maintain your strength. Controlled breathing Learn and use controlled breathing techniques as directed by your health care provider. Controlled breathing techniques include: ??? Pursed lip breathing. Start by breathing in (inhaling) through your nose for 1 second. Then, purse your lips as if you were going to whistle and breathe out (exhale) through the pursed lips for 2 seconds. ??? Diaphragmatic delroy (more content not included)... [facility] 08-02-2023 Hospital Discharg e instructions Patient Education [...] to children increases the risk of: Sudden infant syndrome (SIDS). Infections in the nose, throat, [...] Department of Health and Human Services: www.smokefree.gov [place] [employer]: www.freedomfromsmoking.org [place] [employer]: www.heart.org Where to find more [...] provider. Document Revised: 06/01/2022 Document Reviewed: 06/01/2022 [employer] Patient Education 2022 [employer]. 08/02/2023 12:03:20 Chronic Kidney Disease, Adult Chronic [...] Follow these instructions at home: Medicines Take cbql-gmi-qpnltrk and prescription medicines only as told by [...] is important. Where to find more information [place] [employer]ney Patients: www.aakp.org National Kidney Foundation: www.kidney.org [place] [employer]: www.akfinc.org Life Options: www.lifeoptions.org Kidney [...] provider. Document Revised: 09/03/2020 Document Reviewed: 09/03/2020 [employer] Patient Education 2022 [employer]. 08/02/2023 12:03:17 Chronic Obstructive Pulmonary Disease Chronic [...] Follow these instructions at home: Medicines Take whfh-ejl-bocqyku and prescription medicines only as told by [...] Document Reviewed: 04/07/2021 Elsevier Patient Education [address] [employer] [facility] [place] 07-30-2023 Hospital Discharg e instructions Patient Education [...] Follow these instructions at home: Medicines Take xwoi-nvj-hkimusf and prescription medicines only as told by [...] provider. Document Revised: 04/07/2021 Document Reviewed: 04/07/2021 [employer] Patient Education 2022 [employer]. Follow Up Care 01/25/2023 13:31:33 With:HUY LIM, LANCE Tadeo Address: When:Within 1 Year([address]) [facility] [place] 02-25-2023 Evaluation note Encounter Date Diagnosis Assessment [...] no improvement in 2 to 3 days [facility] 08-13-2023 Hospital Discharge instructions Patient Education [...] Pickled foods. Vegetable juice. Boxed mixes or mfuae-hs-zgz boxed meals and side dishes. Bottled dressings, [...] provider. Document Revised: 09/22/2020 Document Reviewed: 09/22/2020 [employer] Patient Education 2022 [employer]. Follow Up Care 07/29/2022 13:52:07 With:Jaclyn SON MD, FAM Address: [address] [place] [address] [place] [address]- When:6 months [facility] 05-12-2023 Evaluation note* Encounter Date Diagnosis Assessment [...] of diseases classified elsewhere (ICD-10 - B96.89) [facility] 03-18-2023 Hospital Discharge instructions Patient Education [...] lower your excretion of potassium. 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 ?You have a urinary tract blockage, [...] This puts you at the highest risk. Mccurtain's disease. This is a condition where the [...] (arrhythmias). Follow these instructions at home: Take usan-ort-myzexkz and prescription medicines only as told by [...] 05/20/2003 Document Revised: 05/15/2018 Document Reviewed: 05/15/2018 [employer] Patient Education [address] [facility] [place] 02-24-2023 Hospital Discharge instructions Patient Education 08/06/2022 [...] including vitamins, herbs, eye drops, creams, and vdsq-djq-rqwjdua medicines. Any medical conditions you have. How [...] mmol/L (SI units). Child: 3.4 4.7 mEq/L. Infant: 4.1 5.3 mEq/L. : 3.9 5.9 mEq/L. 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 [place]'s syndrome. Kidney disease. Consuming too much licorice. [...] 07/02/2005 Document Revised: 02/15/2018 Document Reviewed: 02/15/2018 [employer] Patient Education 2020 [employer]. Follow Up Care 08/06/2022 18:49:11 With:Jaclyn SON Address: [address] [place] [id number] Business (1) When:08/11/2022 20:06:02 [facility]02-24-2023 Evaluation + Plan noteExtracted from: Title:ED [...] Date:01/25/2023 01:00:00 PM Scheduled Provider:Jaclyn SON MD Location:[facility] Appointment Type: Open Appointment Date:08/02/2023 11:00:00 AM Scheduled Provider: Location:[facility] Appointment Type: Medicare Wellness Subsequent [facility]02-20-2023 Hospital Discharge instructions Patient Education 08/02/2022 [...] require a prescription and some youcan purchase smey-chh-qnpwgfr. Medicines may have nicotine in them to [...] for support and encouragement. Call telephone quitlines (3-293-WUAT-NOW), reach out to support groups, or work [...] 05/24/2002 Document Revised: 08/17/2019 Document Reviewed: 08/18/2019 [employer] Patient Education 2020 [employer]. 08/02/2022 13:20:24 Hypertension, Adult Hypertension, Adult High [...] care provider. This is important. Medicines Take bgza-ksp-zqzlbee and prescription medicines only as told by [...] 05/30/2006 Document Revised: 02/07/2019 Document Reviewed: 02/07/2019 Elsevier Patient Education 2020 [employer]. 08/02/2022 13:20:20 Health Maintenance After Age 65 [...] of the medicines you are taking, including kkiq-hgu-yjanunk medicines. Ask your health care provider about [...] ?You feel dizzy, sleepy, or off-balance. Take plqt-uwx-cztiiqo and prescription medicines only as told by [...] 04/12/2018 Document Revised: 09/20/2019 Document Reviewed: 04/12/2018 [employer] Patient Education [address] [facility] [place] 12-20-2022 Evaluation note* Encounter Date Diagnosis Assessment Notes Treatment Notes Treatment Clinical Notes May, Tooth infection (ICD-10 - K04.7) Take medications as directed.Highly encourage patient to contact dentist SERGIO for further treatment of infection. Do not take OTC medications like ibuprofen with prescriptions [facility] Discharge instructions Patient Education 01/20/2022 20:22:08 Hyponatremia, Zbpi-af-Lvws Hyponatremia Hyponatremia is when the amount of [...] symptoms. Follow these instructions at home: Take ykxk-dyw-vbyypoo and prescription medicines only as told by [...] 02/09/2012 Document Revised: 08/16/2019 Document Reviewed: 05/03/2019 [employer] Patient Education 2020 Ecwid. Follow Up Care 07/23/2021 13:45:50 With:HUY LIM, LANCE Tadeo Address: [address] [place] [address]- [facility]* Encounter Date Diagnosis Assessment Notes Treatment Notes Treatment Clinical Notes Dec, Polyp of ascending colon, unspecified type (ICD-10 - K63.5) [facility] Other 05-16-2022 Hospital Discharge instructions Patient Education [...] water added (diluted fruit juice). Eat bland, epcn-ux-hiyzfk foods in small amounts as you are able. These foods include bananas, applesauce, rice, lean meats, toast, and crackers. Avoid fluids that contain a lot of sugar or caffeine, such as energy drinks, sports drinks, and soda. Avoid alcohol. Avoid spicy or fatty foods. General instructions Take sryn-cpv-txaslit and prescription medicines only as told by your health care provider. Drink enough fluid to keep your urine pale yellow. Wash your hands often using soap and water. If soap and water are not available, use hand dev manager. Make sure that all people in your [...] eating and drinking to prevent dehydration. Take nsss-mrw-pnlxbqy and prescription medicines only as told by [...] 05/30/2006 Document Revised: 09/21/2019 Document Reviewed: 11/07/2018 [employer] Patient Education 2020 Ecwid. Follow Up Care 10/26/2021 11:29:31 With:Jaclyn SON MD, FAM Address: When: only if needed [facility] [place] 08-04-2021 History of Present illness Narrative* Alicia Sharma RN - 01/14/2021 9:59 AM EDT Report called to KIM Wilhelm at [facility] at this time. * Phuong Still LSW - 01/14/2021 8:37 AM EDT Pt discharged to [facility] today. Arranged transport for [facility] [employer] [facility] at 10:05 am. SW called and notified vimal Morgan of arrangements and she is in agreement. Nursing notified. SHANEL calledto [facility] and left a message for Olya in admissions regarding arrangements. Faxed discharge summary and HENS to Olya. No further needs identified. Phuong Laureano DEBT COUNSELOR SIDE HEMMER 01/14/2021 * Alicia Sharma RN - 01/14/2021 7:58 AM EDT Offered to get pt up to chair for breakfast; pt declines and states she canceled her breakfast trayas she doesn't eat breakfast . Pt educated on discharge time of 1000 with Shalom Van to go to [facility]. Pt concerned about daughter, Cathy, being made aware of discharge. Phuong in social work contacted and states that she spoke to Cathy and she is aware of discharge time and plan. * Aurelio Saldana MD - 01/14/2021 5:58 AM EDT Hospitalist Progress Note 01/14/2021 5:58 AM Subjective: Admit Date: 01/08/2021 PCP: Jaclyn Son MD Interval History: Pat feels she is doing much better. She [...] documented, reviewed, and updated. CBC: Recent Labs 01/11/21205001/11/21205001/12/2145401/13/2144401/14/21 0440 WBC 12.1* -- 10.9 8.4 -- HGB [...] healing Closed hip fracture, right, initial encounter ([facility]) Aurelio Saldana MD, MD Rounding Hospitalist * Shannan Musa LSW - 01/13/2021 4:14 PM EDT Received word from [facility], Olya, carmel p.m. re: Patient pre cert being approved. Olya states that Patient can be admitted to [facility] as soon as tomorrow if she is medically stable for discharge. HENS completed per this short story writer today. JOEY Pendleton 01/13/2021 * Evette Mane [...] reviewed, and updated. CBC: Recent Labs 01/11/21 2051 01/12/21 0455 01/13/21 0445 WBC 12.1* 10.9 8.4 HGB [...] Aurelio Saldana MD, MD Rounding Hospitalist * Phuong Still LSW - 01/12/2021 3:14 PM EDT [facility] calls back and states that they will accept pt. Thida will start pre cert with insurance this afternoon. Phuong KEENANW 01/12/2021 * Kala Cordero OT - 01/12/2021 2:10 PM EDT [facility] Occupational Therapy Evaluation Date: 01/12/2021 Patient Name: [...] Ambulation Assistance: Independent Transfer Assistance: Independent Active University Lecturer: Yes IADL Comments: Active with daily household [...] Time Frame for Short term goals: STG=LTG custodial goals Time Frame for watermaster goals : 5 days (01-16-2021) custodial goal 1: Patient to complete UB/LB bathing with set up watermaster goal 2: Patient to complete UB/LB dressing with set up custodial goal 3: Patient to complete toileting task with supervision only. custodial goal 4: Patient to tolerate static standing x5 minutes without LOB in order to complete self care tasks. Plan Times per day: Daily (1-2x day) Weeks: 5 days Time In: 1305 Time Out: 1325 Timed Coded Minutes: 0 Total Treatment Time: 20 OLU Caballero/Karen 01/12/2021 * Phuong Still LSW - 01/12/2021 2:04 PM EDT SHANEL received call back from dtr and they have decided to go with [facility] in [place] as her dtr works there as well. SHANEL made referral to [facility] and faxed over information. Phuong KEENANW 01/12/2021 * Phuong Still LSW - 01/12/2021 1:45 PM EDT SHANEL met with pt and daughters early this morning regarding placement and decisions about where they would like pt to go. They decided on [facility] TCU as first choice and [facility] secondary. SHANEL called to [facility] and after many messages and phone contacts, the TCU at [facility] is no longer operating. Spoke with acute rehab medical billing coordinator at [facility] and she is willing to look at pt information. Although reports that the insurance pt carries will often not approve for their level of care. SHANEL also spoke with [facility] this morning and they are also in networkand willing to look at pt information. SHANEL called back to Cathy, vimal, and explained that first choice was no longer available and discussed the differences in acute rehab vs correction facility. Cathy wishes to talk with pt and will call SHANEL back with an answer. SHANEL will await return call. Phuong KEENANW 01/12/2021 * Rosemary Fuller S - 01/12/2021 11:08 AM EDT [facility] Date: 01/12/2021 Physical Therapy Daily Note Patient [...] Good sitting balance to assist with self-care Manager Equipment Goals Time Frame for custodial goals : 10 days - expires 01/19/21 watermaster goal 1: Transfer supine to sit with CG/min assist custodial goal 2: Transfer bed to chair or commode with wh walker and min assist watermaster goal 3: Ambulate with wh walker 20-25 ft to bathroom for self-care tasks Rosemary [facility] Therapy License Number: EXHAUST EMISSIONS AUTOMOTIVE TECHNICIAN Date: 01/12/2021 * Lien Gerber RN - [...] loss Fluid Accumulation: No significant fluid accumulation Logistics Operations Director Strength: Not Performed Estimated Daily Nutrient Needs: Energy (kcal): 0251-2072 (27-32); Weight Used for Energy Requirements: Current [...] Usual Body Weight: 100 lb (45.4 kg) [place] Body Weight: 105 lbs; % [place] Body Weight 99.5 % BMI: 19.8 Adjusted [...] Discharge Planning: Continue Oral Nutrition Supplement Contact: [phone] * Aurelio Saldana MD - 01/12/2021 6:23 [...] satisfy MIPS performance). Aurelio Saldana MD, MD [facility] Hospitalist * Brenda Newby RN - 01/11/2021 [...] on food choices due to ongoing nausea/emesis. Evans option choices given and encouraged. Patient advised [...] by Levofloxacin 250 mg IV daily Jolene Barrett PharmAbebe, 01/11/2021 5:43 PM * Brenda Newby RN - 01/11/2021 5:[address] Martinez updated with lab result. New orders rec'd * Sonia Watson - 01/11/2021 9:38 AM EDT [facility] Date: 01/11/2021 Physical Therapy Daily Note Patient [...] Nurse notified, Left in chair Time In: 0855 Time Out: 09 Timed Coded Minutes: 25 Total Treatment Time: [...] Good sitting balance to assist with self-care Fci Goals Time Frame for custodial goals : 10 days - expires 01/19/21 watermaster goal 1: Transfer supine to sit with CG/min assist watermaster goal 2: Transfer bed to chair or commode with wh walker and min assist custodial goal 3: Ambulate with wh walker 20-25 ft to bathroom for self-care tasks Sonia Pinedalio EXHAUST EMISSIONS AUTOMOTIVE TECHNICIAN Date: 01/11/2021 * Trisha Yu APRN - CNP - 01/11/2021 9:05 AM EDT Department of Orthopedic Surgery Trisha Yu, PLANNER SCHEDULER-C Progress Note SUBJECTIVE Patient is sitting up at bedside with PT ready for [facility]. She states her nausea and pain is [...] reactive. Repeat CBCtomorrow. Pain is managed with Inkster and nausea is better after receiving Reglan. [...] 01/[address] Michelle. Pain managed with Inkster , IV morphine. Consult PT and OT. [...] Also started on Protonix. Percocet changed to In[place]ster and she seems to be tolerating better 7. Tobacco abuse -declined nicotine patch 8. Mild leukocytosis -possibly reactive. She has no fever. Patient has no complaints. We will follow-up with CBC tomorrow Patient continues to require inpatient admission related to need for IV fluids, monitoring labs, clinical condition Rounding Hospitalist * Maribel Estrada RN - 01/10/2021 8:48 PM EDT [place] Superintendent calls and gives Dr. Lowry update on [...] medication helped the nausea. Spoke with Dr oLwry and Trisha GARCIA about patient report of nausea from Percocet. Pain med order changed per Dr Lowry. Both PLANNER SCHEDULER and physician conferred with regarding second unit of blood. Trisha informs this short story writer she will be in to round, will confirm need for second unit at that time. CBC drawn post first unit HgB 8.3. * Trisha Yu APRN - CNP - 01/10/2021 11:32 AM EDT Department of Orthopedic Surgery Trisha Yu PLANNER SCHEDULER-C Progress Note SUBJECTIVE Patient is post-op day [...] and will switch oral pain medication to Inkster to see if patient tolerates better. Zofran [...] to Percocet and will switch it to Inkster. Consult PT and OT 2. Acute anemia [...] and GERD -we will change Percocet to Inkster, continue on IV fluids and as needed Zofran Start on Protonix 7. Tobacco abuse -declined nicotine patch Patient continues to require inpatient admission related to need for IV fluids, pain management, monitoring electrolytes, nausea and vomiting management [facility] Hospitalist * Cristela Currie, PT - 01/10/2021 10:19 AM EDT [facility] Physical Therapy Evaluation Date: 01/10/2021 Patient Name: [...] Good sitting balance to assist with self-care watermaster goals Time Frame for custodial goals : 10 days - expires 01/19/21 watermaster goal 1: Transfer supine to sit with CG/min assist custodial goal 2: Transfer bed to chair or commode with wh walker and min assist watermaster goal 3: Ambulate with wh walker 20-25 ft to bathroom for self-care tasks with CG/ min assist Time In: 0910 Time Out: 0950 Timed Coded Minutes: 0 Total Treatment Time: [...] pt this morning to complete assessment with credit union manager during quality rounds. Pt is alert and oriented and cooperative with assessment. Pt is a 70 year old female admitted for comminuted intertrochanteric fracture of the proximal right femur. Pt is scheduled for surgery this afternoon. Pt lives alone in her apartment in [place]. Pt was not using any DME or [...] based on facilities that accept her insurance. [place] of choice list provided as well. [facility]. SW made referral to [facility] and they will review and obtain insurance authorization once evaluations are complete and canbe sent in. Pt identifies no other concerns or needs currently. SW will follow and remain available. Phuong PATRICK SIDE HEMMER 01/09/2021 * Alicia Sharma RN - 01/09/2021 [...] surgical repair of hip. Denies weight losses investigation division captain or PO problems. Eats 2 meals [...] loss Fluid Accumulation: No significant fluid accumulation Logistics Operations Director Strength: Not Performed Estimated Daily Nutrient Needs: Energy (kcal): 2066-3316 (27-32); Weight Used for Energy Requirements: Current [...] Usual Body Weight: 100 lb (45.4 kg) [place] Body Weight: 105 lbs; % [place] Body Weight 99.5 % BMI: 19.8 Adjusted [...] Discharge Planning: Too soon to determine Contact: [phone] * Alicia Sharma RN - 01/09/2021 9:46 [...] a living will or durable power of civil litigation attorney for healthcare? denies If yes do we have a copy on file? n/a Do you or your family have any questions or concerns we haven't already discussed? Denies Pt lives alone and is independent with ADL's. Pt given list of SNF and informed of local facilitiesthat take her insurance. Pt requests to contact [facility] in [place] in regards to discharge plan, she states her daughter lives outside of [place]. States PCP is Dr Son. Phuong COOK and short story writer present for rounding. * Maribel Estrada RN [...] tolerated it just fine. * Brian Zuniga RPH - 01/08/2021 10:16 PM EDT Pharmacy Note Renal Dose Adjustment Lencho Candelario is a 70 y.o. female. Pharmacist assessment of renally cleared medications. Recent Labs 01/08/211937 BUN 14 Recent Labs 01/08/211937 CREATININE 1.54* CrCl cannot be calculated (Unknown ideal weight.). Estimated CrCl using [place] Body Weight: 24.01 mL/min (based on IBW [...] reach. Will continueto monitor. documented in this [facility]Paris [facility] Phone: [phone]) 141-472307-30-2021 Hospital Discharge instructions* Discharge Instr - HYUN* [...] Emergency Contact: Cathy Bergman Mobile Relation: Child Diamond Saw Operator needed? No Secondary Emergency Contact: Isabella [facility] Relation: Child Diamond Saw Operator needed? No Past Surgical History: No past surgical history on file. Immunization History: There is no immunization history on file for this patient. Active Problems: Patient Active Problem List Diagnosis Code Closed fracture of right hip with routine healing S72.001D Closed hip fracture, right, initial encounter ([facility]) S72.001A Isolation/Infection: Isolation No Isolation [...] Assisted Dressing Assisted Toileting Assisted Feeding Assisted Biology Internship Assisted Med Delivery whole Wound Care Documentation [...] Readmission: 11 Discharging to Facility/ Agency Name: [facility] Address: [address] [address] Dialysis Facility (if applicable) Name: Address: Dialysis Schedule: Phone: Fax: Rolling Machine Tender/Structural Steel Erection Supervisor signature: at 4:20 PM EDT PHYSICIAN SECTION Prognosis: {Prognosis:1445934276} Condition at Discharge: { Patient Condition:813446754} Rehab Potential (if transferring to Rehab): {Prognosis:5866828824} Recommended Labs or Other Treatments After Discharge: Physician Certification: I certify the above information and transfer of Lencho Candelario is necessary for the continuing treatment of the diagnosis listed and that she requires {Admit to Appropriate Level of Care:81225} for {GREATER/LESS:316441395} 30 days. Update Admission H&P: {CHP DME Changes in HandP:762051468} PHYSICIAN SIGNATURE: {Esignature:360568295} * Additional Instructions* Aurelio Saldana MD - 01/14/2021 Discharge Instructions Admission Date: 01/08/2021 Discharge Date: 01/14/21 Disposition: Home Activity: As tolerated Diet: General diet with nutritional supplements 3 times a day. Discharge Medication: Lencho Candelario Home Medication Instructions KAMRAN:[id number] Printed on:01/14/21611 Medication Information aluminum & magnesium [...] daily Discharge Instructions: Continue previous home medication. Inkster 5/325: 1 tablet every 6 hours as [...] physician (Jaclyn Son MD) after discharge from [facility]. [facility] Work Phone: evaluation + Plan note Future Appointments Appointment Date:01/21/2022 01:20:00 PM Scheduled Provider:Jaclyn SON MD Location:[facility] [place] Appointment Type:[facility] General Surgery [place] Evaluation + Plan note Future Appointments Appointment Date:07/29/2022 01:20:00 PM Scheduled Provider:Jaclyn SON MD Location:[facility] [place] Appointment Type:[facility] Future Scheduled Tests Laboratory* Potassium Level 01/21/22 [facility] [place] Evaluation + Plan note Future Appointments Appointment Date:07/29/2022 01:20:00 PM Scheduled Provider:Jaclyn SON MD Location:[facility] [place] Appointment Type:[facility] [place] Evaluation + Plan note Future Appointments Appointment Date:08/02/2022 01:00:00 PM Scheduled Provider: Location:[facility] [place] Appointment Type:FM Medicare Wellness Initial Appointment Date:01/25/2023 01:00:00 PM Scheduled Provider:[facility]ON [facility] Future Scheduled Tests Laboratory* [facility] Future [facility]ments Appointment Date:01/25/2023 01:00:00 PM Scheduled Provider:Jaclyn SON MD [facility] Type: Open Appointment Date:08/02/2023 11:00:00 AM Scheduled Provider: [facility] Type: Medicare Wellness Subsequent Future Scheduled Tests Laboratory* Potassium Level 07/29/22 [facility] [place] Evaluation + Plan note Future Appointments Appointment Date:01/25/2023 01:00:00 PM Scheduled Provider:Jaclyn SON MD [facility] Type: Open Appointment Date:08/02/2023 11:00:00 AM Scheduled Provider: [facility] Type:FM Medicare Wellness Subsequent [facility] Future Appointments Appointment Date:08/02/2023 10:40:00 AM Scheduled Provider:Jaclyn SON MD [facility] Type: Open Appointment Date:08/02/2023 11:00:00 AM Scheduled Provider: [facility] Type: Medicare Wellness Subsequent [facility] [place] evaluation + Plan note Future Appointments Appointment Date:08/03/2024 11:00:00 AM Scheduled Provider: [facility] Type: Medicare Wellness Subsequent Appointment Date:08/03/2024 11:40:00 AM Scheduled Provider:Jaclyn SON MD [facility] Type: Open [facility] [place] Evaluation note* Diagnosis Closed fracture of right hip, initial encounter ([facility]) Accidental fall, initial encounter Postoperative anemia Anemia, unspecified Renal insufficiency Unspecified disorder of kidney and ureter documented in this encounter [facility] Phone: Evaluation note* Diagnosis Closed nondisplaced intertrochanteric fracture of right femur, initial encounter ([facility]) documented in this encounter [facility] Phone: evaluation note* Diagnosis Closed displaced intertrochanteric fracture of right femur with routine healing Aftercare for healing traumatic fracture of hip documented in this encounter [facility] Phone: evaluation noteNo assessment information available [facility] Work Phone: Evaluation noteNo InformationNort ioSemantics Other History and physical note Author Chance Beavers [facility] March 15, 2022 11:39am Note Date/Time March 15, 2022 11 :39am [facility] [address] [place] [address] Gastroenterology H&P Signed Patient: Lencho Candelario MR#: [id number] : 1950 Acct:[id number] Age/Sex: 71 / F Adm Date: 2 Loc: Room: Type: [facility] Attending Dr: Chance Beavers MD Copies to: [...] signed by Chance Beavers MD> 03/15/22 1139 [facility] Work Phone: Hisrzhp general Narrative - Reported* Type Description Date Medical History GERD Medical History colon polyp Medical History COPD Surgical History hysterectomy Surgical History cholecystectomy Surgical History hip surgery (broken) [facility] Other Hisbehf general Narrative - Reported* Type Description Date Medical History GERD Medical History colon polyp Medical History COPD Medical History KIDNEY DISEASE STAGE 3 Surgical History hysterectomy Surgical History cholecystectomy Surgical History hip surgery (broken) Hospitalization History SEE ABOVE [facility] Other Hospital course Narrative No data available for this section General Surgery [email or web address] Discharge instructions No data available for this section General Surgery [email or web address] Hospital Discharge instructions Additional Instructions DISCHARGE INSTRUCTIONS [...] Follow up with PCP. - Office number [phone].[facility] Work Phone: Progress note No data available for this section [facility] [place] Reason for visit NarrativePT HERE AT REQUEST OF DR WILLIS FOR EVALUATION OF POLYP THAT COULDN'T BE REMOVED -DAUGHTER ARPITA WANTED CONSULT FIRST., REFERRAL NOTE RECEIVEDNorth Prairie ioSemantics Other Advance Directives No Advanced Directives Records [...] Comments Fall Pt was walking in he r kitchen and slipped on something on her floor landing on her right leg. Denies LOC or hitting her head Status Reason Specialty Diagnoses / Procedures Referre d By Contact Referred To Contact Diagnoses Closed hip fracture, right, initial encounter ([facility]) Isaias Lowry MD [address] [place] [address] [facility] Ordered Prescriptions (unrec ognized section and content) [...] ER)2003 (Given - Provider: Jyothi Jaimes RCP) 09 (Given - Provider: Natasha Yip RCP)2107 (Given - Provider: Brenda Rubin RCP) 09 (Due - Provider: Natasha Yip RCP)2100 (Due - Provider: Natasha Yip RCP) [...] Tue01/10/21 at 1900 0836 (Given - Provider: iLen Gerber, KIM) 0855 (Given - Provider: Evette Mane, KIM) 0749 (Given - Provider: Alicia Sharma, KIM) ferrous sulfate (IRON 325) tablet 325 mg (CANCELED) 325 mg, Oral, DAILY WITH BREAKFAST, First dose on Tue01/13/21 at 0800 0855 (Given - Provider: Evette Mane, KIM) guaiFENesin (MUCINEX) extended release tablet 600 mg 600 mg, Oral, 2 TIMES DAILY, First dose on Tue01/10/21 at 2100, Do not crush or break. 0836 (Given - Provider: Lien Gerber RN)1958 (Given - Provider: Negrita Garcia, RN) 0855 (Given - Provider: Evette Mane, RN)2031 (Given - Provider: Michelle Montero, RN) 0750 (Given - Provider: Alicia Sharma, KIM)2100 (Due) lactobacillus (CULTURELLE) capsule 1 capsule 1 capsule, Oral, DAILY WITH BREAKFAST, First dose on Tue01/13/21 at 0800 0855 (Given - Provider: Evette Mane RN) 0750 (Given - Provider: Alicia Sharma, KIM) levoFLOXacin (LEVAQUIN) 250 MG/50ML infusion 250 mg 250 mg, Intravenous, EVERY 24 HOURS, First dose on Tue01/12/21 at 1830, Until Discontinued 181 (New Bag - Provider: Lien Gerber RN)194 (Stopped - Provider: Negrita Garcia RN) 1800 (New Bag - Provider: Lien Gerber, KIM)1909 (Stopped - Provider: Lien Gerber RN) 1830 (Due) pantoprazole (PROTONIX) tablet 40 mg 40 mg, Oral, DAILY BEFORE BREAKFAST, First dose on Tue01/11/21 at 0700, Do not crush or break. 0535 (Given - Provider: Maribel Estrada RN) 0631 (Given - Provider: Negrita Garcia RN) 0558 (Given - Provider: Michelle Montero, KIM) [...] RN) 0749 (Not Given - Provider: Alicia Sharma, KIM - Reason: Patient/family refused)2099 (Due) sodium chloride (OCEAN, BABY AYR) 0.65 % nasal spray 2 spray 2 spray, Nasal, 4 TIMES DAILY, First dose on Tue01/12/21 at 0900 0956 (Not Given - Provider: Lien Gerber RN - Reason: Patient/family refused)1301 (Not Given - Provider: Lien Gerber RN - Reason: Patient/family refused - Comment: Dr. Cárdenas aware)163 (Not Given - Provider: Lien Gerber RN - Reason: Patient/family refused)2001 (Not Given - Provider: Negrita Garcia RN - Reason: Patient/family refused) 0854 (Not Given - Provider: Evette Mane RN - Reason: Patient/family refused)131 (Not Given - Provider: Evette Mane RN - Reason: Patient/family refused)163 (Not Given - Provider: Lien Gerber RN - Reason: Patient/family refused)2027 (Not Given - Provider: Michelle Montero RN - Reason: Patient/family refused) 075 (Not Given - Provider: Alicia Sharma RN [...] Lien Gerber, KIM)2000 (Given - Provider: Negrita Garcia, RN) 0855 (Given - Provider: Evette Mane RN)2027 (Not Given - Provider: Michelle Montero RN - Reason: Other - Comment: duplicate)2031 (Given - Provider: Michelle Montero RN) 0751 (Given - Provider: Alicia Sharma RN)2100 (Due) sodium chloride flush 0.9 % injection 5-40 mL 5-40 mL, Intravenous, EVERY 12 HOURS SCHEDULED (2 times per day), First dose on Luz Elena 01/08/21 at 2145, For Line Patency: Peripheral IV [...] 0859 (Not Given - Provider: Lien Gerber, RN - Reason: IV Fluid Infusing)2000 (Not Given [...] at 2100 2003 (Given - Provider: Jyothi Jaimes RCP) magnesium hydroxide (MILK OF MAGNESIA) 400 MG/5ML suspension 30 mL 30 mL, Oral, DAILY PRN, Constipation, Starting on Tue01/09/21 at 1943, First line therapy for constipation., Post-op metoclopramide (REGLAN) injection 5 mg 5 mg, Intravenous, EVERY 6 HOURS PRN, Nausea, Starting on 01/10/21 at 1609 0535 (Given - Provider: Maribel Estrada RN) 0857 (Given - Provider: Evette Mane [...] g, Oral, DAILY PRN, Constipation, Starting on Luz Elena 01/08/21 at 2124, First line therapy for constipation promethazine (PHENERGAN) tablet 25 mg 25 mg, Oral, EVERY 6 HOURS PRN, Nausea, Starting on Tue01/09/21 at 0656 sodium chloride flush 0.9 % injection 5-40 mL 5-40 mL, Intravenous, PRN, Line Care, Starting on Tue01/09/21 at 1943, After every IV line use, Post-op 1816 (Given - Provider: Lien Gerber RN)2000 (Given - Provider: Negrita Garcia RN) 1800 (Given - Provider: Lien Gerber RN) sodium chloride flush 0.9 % injection 5-40 mL 5-40 mL, Intravenous, PRN, Line Care, After every IV line use, Starting on Luz Elena 01/08/21 at 2124, For Line Patency: Peripheral IV [...] Starting on Luz Elena 01/08/21 at 2124
Maximum dose of acetaminophen is [...] and content) DATE CREATED AUTHOR 04/05/2021 Bonnie jones DATE CREATED AUTHOR AUTHOR'S ORGANIZ ATION 04/26/2022 [facility] DATE CREATED AUTHOR AUTHOR'S ORGANIZ ATION 09/12/2022 [facility] DATE CREATED AUTHOR AUTHOR'S ORGANIZ ATION 09/12/2024 [facility] Care Team (unrecognized sect ion and content) [...] PRIMARY CLINICAL RECORDS. [facility] [employer]. provides no warranty or guarantee of the accuracy or completeness of information in this document.
[2025-02-12 13:46] LABS: Protein Creatinine Ratio Urine 1.73; Total Protein Urine Random 46.3 mg/dL (<=11.9)
[2025-02-12 13:48] LABS: Hematocrit 33.8 % (36.0-48.0); Hemoglobin 10.6 g/dL (12.0-16.0)
[2025-02-12 13:56] LABS: Albumin Level 3.5 g/dL (3.4-5.0); Anion Gap 13.6; Blood Urea Nitrogen 31.0 mg/dL (7.0-18.0); Calcium 8.9 mg/dL (8.5-10.1); Carbon Dioxide 24.5 mmol/L (21.0-32.0); Chloride 102 mmol/L (98-107); Estimated GFR (African America 30 (>=60 mL/min/1.73m^2); Estimated GFR (Non-African Ame 25 (>=60 mL/min/1.73m^2); Glucose 96 mg/dL (74-106); Magnesium 1.8 mg/dL (1.8-2.4); Potassium 5.1 mmol/L (3.5-5.1); Sodium 135 mmol/L (136-145)
== END 2025-02-12 13:09 | disposition home or self-care (01) ==
LOC: LAB 13:10
PROVIDERS: PCP Family Medicine
DX: E87.5 Hyperkalemia (principal); I12.9 Hypertensive chronic kidney disease with stage 1 through stage 4 chronic kidney disease, or unspecified chronic kidney disease; N18.4 Chronic kidney disease, stage 4 (severe)
CPT/HCPCS: 36415; 80069; 82570; 83735; 84156; 85014; 85018

== ENCOUNTER 2025-04-22 11:45 | Emergency (ER) | payer MEDICARE, MEDICAID, SELFPAY ==
[2025-04-22 11:47] VITALS: BP 180/98; PULSE 110; TEMP 36.5; O2SAT 100; BMI 17.5
--- OUTSIDE RECORDS SUMMARY | 2025-04-22 12:45 | XMS_ITS | Clinical Summary ---
Author Organization [facility] Address [address] [place] [address] Care Team Providers Care Special Distribution Clerk Name Role Phone Unavailable Primary Care Provider Unavailabl e Social History Tobacco UseTypesPacks/DayYears UsedDateSmoking Tobacco: Never Assessed CommentsUnknownSex and Gender InformationValueDate RecordedSex Assigned at Not on fileLegal KlgXygryh49/15/2023 11:22 PM EDTGender IdentityNot on file Sexual OrientationNot on file Last Filed Vital Signs Vital SignReadingTime TakenCommentsBlood Jtslckzx339/7306/15/2021 12:00 PM EST Pulse--Temperature--Respiratory Rate--Oxygen Saturation--Inhaled Oxygen Concentration--Pbtlcx93.8 kg (90 lb)06/15/2021 12:00 PM OVSLpwotr268.9 cm (5' 1 )06/15/2021 12:00 PM ESTBody Mass Index17.01006/15/2021 12:00 PM EST Plan of Treatment Not on file Insurance
--- OUTSIDE RECORDS SUMMARY | 2025-04-22 12:46 | XMS_ITS | Continuity of Care Document ---
Author Organization [facility] Address [address] [place] [id number] Phone [phone] Care Team Providers Care Vigoureux Printer Name Role Phone Carlyle Jacinto MD Care Team Information Rece iver [phone] Problems Active Problems Provider Date Body mass [...] Acquired Date Facility Test Result H/[place] .Renal Panel-lab rock/quest 02/12/2025 [facility] [phone].Albumin3.5.Calcium8.9.Carbon Dhmwdmk99.5.Vukkyqhm647.Phosphorus 4.2.Potassium5.1.Vfzaqh887.BUN31.0.GFR25.Creatinine-LC1.96.Hemoglobin And Yunwiftjhm40/02/2025[facility] [phone].Hemoglobin Blood10.5.Bhtozifmro96.8.Urine Protein/Creat. Random [address] [place] [phone].Urine Protein Eiyjae64.3.Urine Creatinine Phwdxc47.81.Urine Prot/Creat Ratio1.73.Hemoglobin And Mdgsdiebly38/10/[address] [place] [phone].Hemoglobin Blood10.8.Eickifcyrr42.2.Ulqaugqoz96/10/[address] [place] [phone].Magnesium1.8.Renal Panel[address] [place] [phone].Albumin3.4.Calcium9.4.Carbon Gvqcglv51.3.Gvykkhhe981.Phosphorus 4.2.Potassium4.8.Jkkpdv954.BUN28.0.GFR Krgzejonv28Ozst95.Creatinine-LC1.85.Urine Protein/Creat. [address] [place], [place] [phone].Urine Protein Gseihu07.9.Urine Creatinine Opiesk84.20.Urine Prot/Creat Ratio1.82.Renal Panel[address] [place] [phone].Albumin3.1.Calcium9.2.Carbon Haazzvr42.5.Ikdwjumy818.Phosphorus 4.0.Potassium5.4.Wyzrdi091.BUN27.0.GFR Ccosygrio33Hquj67.Creatinine-LC1.88.Ua [address] [place], [place] [phone] AppearanceCLEARUa BilirubinNEGATIVEUa BloodSMALLUa ColorLT. YELLOWUa GlucoseNEGATIVEUa KetonesNEGATIVEUa LeukoNEGATIVEUa NitriteNEGATIVEUa PH Test Strip6.0Ua Bmnxiut405Xx SourceCLEAN CATCHUa Specific Gravity1.025Ua Urobilinogen0.2.Urine Protein/Creat. Ttdjey[address] [place] [phone].Urine Protein Nwgpks252.6.Urine Creatinine Elnxvp357.81.Urine Prot/Creat Ratio1.09.Urine Protein/Creat. Icnm[address] [place], [place] [phone].Urine Protein Rotbcj88.9.Urine Creatinine Bvouoc79.28.Urine Prot/Creat Ratio3.56.Renal Panel10/18/2023[facility] [phone].Albumin3.1.Calcium8.8.Carbon Kfzyuov21.9.Azkyijgr238.Phosphorus 4.6.Potassium5.0.Hanlsi260.BUN27.0.GFR Ypbrvlpwa82Vuqi14.Creatinine-LC1.84.Renal Panel08/02/2023[facility] [phone].Albumin3.7.Calcium9.4.Carbon Vwssavh07.Ittdtizv427.Potassium5.1 .Tfrcfm459.BUN27.GFR Vjuzgksfa51Vzsk43.Creatinine-LC1.9.Renal Panel06/07/2023 [facility] [phone].Albumin3.1.Calcium9.4.Carbon Bnowide43.6.Dumkjsbf190.Phosphorus 3.6.Potassium4.7.Ohdjxb679.BUN30.0.GFR Mteoojoam78Qafe56.Creatinine-LC1.71 .Mfinabtob02/26/2023[facility] [phone].Magnesium1.9.Urine Protein/Creat. Iwymij9103/21/[address] [address] [phone].Urine Protein Ssbnwg47.3.Urine Creatinine Ujxzkw61.49.Urine Prot/Creat Ratio1.88.Renal Panel03/21/[address] [address] [phone].Albumin3.1.Calcium8.5.Carbon Uuoyyhk48.2.Uzwkgdrg465.Phosphorus 4.6.Potassium5.5.Xdbgpr415.BUN23.GFR Zzriojtkf47Vlsu16.Creatinine-LC1.72.Ua 03/21/2023[facility] [address] [place] [address] [phone] AppearanceCLEARUa Bilirubin-Ua BloodSMALLUa ColorLT YELLOWUa Glucose-Ua Ketones-Ua Leuko-Ua Nitrite-Ua PH Test Strip6.0Ua Dmxeeww97Hg Source CLEAN CATCHUa Specific Gravity1.010Ua Urobilinogen0.2.Renal Panel12/13/2022 [facility] [phone].Albumin3.2.Calcium8.8.Carbon Whaidck78.9.Wfkuvyoc561.Phosphorus 3.7.Potassium4.8.Yrdkes134.BUN25.0.GFR Naaphnodg00.Creatinine-LC1.96.Renal Panel 11/30/[address] 6858164 [phone].Albumin3.0.Calcium9.2.Carbon Rcwbqoa22.7.Wvmkwvdt051.Phosphorus 4.0.Potassium4.0.Omzugm538.BUN24.GFR Bdchrqkqn54Mnjf76.Creatinine-LC1.91.Ua 11/30/2022[facility] [address] [place] [address] [phone] AppearanceSL CLOUDYUa Bilirubin-Ua BloodMODERATEUa ColorLIGHT YELLOWUa Glucose-Ua Ketones-Ua Leuko-Ua Nitrite-Ua PH Test Strip6.0Ua Protein >=300Ua SourceCLEAN CATCHUa Specific Gravity1.025Ua Urobilinogen0.2.Urine Protein/Creat. Oxysup4111/30/20[address] 2073661 [phone].Urine Protein Paldyq868.1.Urine Creatinine Hdcufu306.14.Urine Prot/Creat Ratio1.64.Wwnattojj47/29/2023[facility] [phone].Potassium4.4.Wthpeyesl44/29/2023[facility] [phone].Magnesium1.6.Renal Panel[address] [place] [address] [phone].Albumin3.4.Calcium9.2.Carbon Lmivcec92.1.Qtnslsyl572.Phosphorus 3.3.Ryofac715.BUN21.GFR Wbsoapekk35Znmx98.Creatinine-LC1.70.Renal Panel [facility] [phone].Calcium9.3.Carbon Kwyaywo78.Pefcgvwu808.Potassium6.0.Emxunz900 .BUN27.GFR Tsgpzwwjf01.Creatinine-LC1.5.[facility]al [facility] [phone].Albumin3.3.Calcium9.1.Carbon Avytfgh02.4.Sxdswnnl15.Phosphorus4.2 .Potassium5.3.Pfpvoy813.BUN19.GFR32.GFR Ycnajbmwq97.Creatinine-LC1.58.Urine Protein/Creat. Rqojeg8811/10/2021[facility] [phone].Urine Protein Kspmjc34.2.Urine Creatinine Aoqjds02.88.Urine Prot/Creat Ratio0.87.Ua11/10/2021[facility] [phone] AppearanceclearUa Bilirubin-Ua BloodmoderateUa Glucose-Ua Ketones-Ua Nitrite-Ua PH Test Strip6.0Ua Ongriwl06Oh Specific Gravity1.010.Renal Panel06/30/2021[facility] [address] [place] [address] [phone].Albumin3.9.Calcium9.8.Carbon Znmegan52.Utzurbfc76.Phosphorus4.1 .Potassium4.5.Faxvmn092.BUN19.GFR Gzzxyurig84Nptz87.Creatinine-LC1.6 .Urinalysis-Flpgdnb0406/30/[address] [address] [phone] Specific [place]>=1.030Ua PH Test Strip5.5Ua ColoryellowUa Appearancesl cloudyUa WBC6-15Ua Protein2+Ua GlucosenegUa KetonesnegUa Bilirubin negUa Urobilinogen0.2Ua NitritenegUa Occult Blood2+.Free Light Btvxbg6906/30/[address] [address] [phone] Light Chains QN Ser85.4Lambda Light Chain QN Ser35.0.Urine Protein/Creat. Puddih3106/30/2021[facility] [address] [place] [address] [phone].Urine Protein Vtbqro165.0.Urine Creatinine Lvhlbe844.4.Urine Prot/Creat Ktvzy560.80.Complement C406/30/[address] [address] [phone].Complement C424.Daibrqcfeg14/18/2022[facility] [address] [place] [address] [phone].Hkatsfbtka08.1.Ipth06/30/2021[facility] [address] [place] [address] [phone].Ipth30.Anti-Myeloperoxidase Abs06/30/2021[facility] [address] [place] [address] [phone].Anti-Myeloperoxidase Abs<9.0.Hemoglobin Blood06/30/2021[facility] [address] [place] [address] [phone].Hemoglobin Blood12.3.Complement C306/30/[address] [address] [phone].Complement C3120.Fpzj-Bcomqiqjlw-4 AB06/30/[address] [address] [phone].Rddr-Kcepikdumq-6 AB<3.5.Renal Panel06/09/[address] [address] [phone].Albumin3.7.Calcium9.5.Carbon Jkxpmju06.Vvomzhiq91.Potassium4.7 .Uxttwi649.BUN27.GFR Vpkzxjlyd64Usmp78.Creatinine-LC1.6.BMP W/Egfr-LC04/21/2021 [facility] [phone].Tdnxhp950.Potassium5.3.Nzcjpgif285.Carbon Njbsksn36.GFR30 .Creatinine-LC1.7.BPK82Abazieyxf43/28/8402O0R/CCD Imports eGFR49 mL/min/1.96m7Znz>=59mL/min/1.73 m2eGFR Aa59 mL/min/1.73m2>=59mL/min/1.73 b7Rzvigkfzz19/28/5277C2U/CCD Imports BUN12 mg/dL5-38Irhrgumjmi8.1 mg/dL0.5-1.3Sodium Zoe679 mmol/CEfq891-937Xuhgqcvcx Lvl3.9 mmol/L3.5-5.3Picbzbbt78 mmol/OJda799-748Jw960 mmol/F63-50Uawu10 mEq/L6-16 BUN/Creat Ratio11 110-20Calcium Lvl8.7 mg/dLLow8.9-11.1Glucose Moa913 mg/dL 55-362Ynzmyjqonf72/28/2286B5M/CCD Imports Neutro Auto65.0 %36.0-75.0Lymph Auto25.0 %14.0-50.0Mono Auto6.7 %4.0-14.0Eos Auto2.5 %0.0-8.0Basophil Auto0.8 %0.0-2.0Neutro Absolute4.5 E9/L2.0-7.5Lymph Absolute1.7 E9/L1.0-4.0Mono Absolute0.5 E9/L0.2-1.0Eos Absolute0.2 E9/L0.0-0.5 Basophil Absolute0.1 E9/L0.0-0.4Unrkdkmghh40/28/5768Q3L/CCD Imports WBC7.0 E9/L4.0-11.0RBC3.0 E12/LLow4.3-5.9Hgb8.8 g/dLLow12.0-16.0Hct25.4 %Low 34.0-46.0RDW16.7 %High10.9-14.2MCH29.0 pg27.0-34.7BEKN87.5 g/dL31.4-36.0MCV84.1 fL80.0-100.0MPV8.1 fL6.4-10.8Tkxprbgn485.0 E9/L150.0-500.8Urpatelup86/27/2021 N2N/CCD Imports Sodium Ghy672 mmol/HPie720-214Mpoezmeaq46/27/4382W8V/CCD Imports eGFR55 mL/min/1.12n7Ltp>=59mL/min/1.73 m2eGFR Aa>60 mL/min/1.73m2>=59mL/min/1.73 f5Scbznlbgw22/27/4611F6H/CCD Imports BUN14 mg/dL5-34Jkpgtrxcez3.0 mg/dL0.5-1.3Sodium Yrc809 mmol/JFzg538-855Itznkanip Lvl4.2 mmol/L3.5-5.7Cupifqcf10 mmol/XAql086-831Lw351 mmol/U39-47Zhpv9 mEq/L6-16 BUN/Creat Ratio14 110-20Calcium Lvl8.6 mg/dLLow8.9-11.1Glucose Lvl97 mg/bD96-399 Vbzntxdzd62/26/5882E3V/CCD Imports Potassium Lvl4.3 mmol/L3.5-5.4Kgwncuiw34 mmol/CAbt621-177Eg982 mmol/T41-61Uxwf77 mEq/L6-43Babvkhzzbp98/26/8661W1M/CCD Imports Hgb8.8 g/dLLow12.0-16.0Hct26.4 %Low34.0-46.8Hcaftfdkic70/25/7262Q7G/CCD Imports WBC7.7 E9/L4.0-11.0RBC3.0 E12/LLow4.3-5.9Hgb8.4 g/dLLow12.0-16.0Hct24.8 %Low 34.0-46.0RDW16.2 %High10.9-14.2MCH27.5 pg27.0-34.0OEFR12.8 g/dL31.4-36.0MCV81.5 fL80.0-100.0MPV8.1 fL6.4-10.0Jdjqvyxh533.0 E9/L150.0-500.2Mmhdnbcad29/25/2021 N2N/CCD Imports BUN18 mg/dL5-38Tnanxujpje7.0 mg/dL0.5-1.3BUN/Creat Ratio18 110-20Calcium Lvl8.2 mg/dLLow8.9-11.1Glucose Lvl92 mg/vY27-940qYFR14 mL/min/1.74j7Luf>=59mL/min/1.73 m2eGFR Aa>60 mL/min/1.73m2>=59mL/min/1.73 c7Zrslzndysc40/25/9714J3K/CCD Imports Neutro Auto63.3 %36.0-75.0Lymph Auto25.1 %14.0-50.0Mono Auto8.6 %4.0-14.0Eos Auto2.1 %0.0-8.0Basophil Auto0.9 %0.0-2.0Neutro Absolute4.9 E9/L2.0-7.5Lymph Absolute1.9 E9/L1.0-4.0Mono Absolute0.7 E9/L0.2-1.0Eos Absolute0.2 E9/L0.0-0.5 Basophil Absolute0.1 E9/L0.0-0.2Igwiogolhp90/24/0979C1S/CCD Imports WBC7.4 E9/L4.0-11.0RBC3.5 E12/LLow4.3-5.9RDW16.1 %High10.9-14.2MCH27.5 pg 27.0-34.8NUJR09.9 g/dL31.4-36.0MCV80.9 fL80.0-100.0MPV8.9 fL6.4-10.8Platelet 290.0 E9/L150.0-500.5Ygsiwfvxn70/24/6318W5H/CCD Imports Magnesium1.5 mg/dL1.3-2.0Ulayeqepfb67/24/3515U8M/CCD Imports Neutro Auto72.2 %36.0-75.0Lymph Auto16.3 %14.0-50.0Mono Auto10.7 %4.0-14.0Eos Auto0.5 %0.0-8.0Basophil Auto0.3 %0.0-2.0Neutro Absolute5.4 E9/L2.0-7.5Lymph Absolute1.2 E9/L1.0-4.0Mono Absolute0.8 E9/L0.2-1.0Eos Absolute0.0 E9/L0.0-0.5 Basophil Absolute0.0 E9/L0.0-0.6Nqwuyswxd10/23/0690U0V/CCD Imports U Yumphlphdh153 mOsm/qr17-9922Geivyutfo49/23/9933K8N/CCD Imports U Gcoqcd39 mmol/CCtfuwhnlma04/23/2245A0E/CCD Imports Ua Spec Desc0.2 Eu/dLUa Color0-5 /HPFYellowUa Clarity0-3 /HPFClearUa Spec Grav3- 4 /HPF1.005-1.829Syajfofii70/23/6817W2W/CCD Imports Hzebkymemp426 mOsm/kbQpi263-375RWR8.90 mcIU/mL0.34-5.60Reference Laboratory Udwvkcp3502/02/2021N2N/CCD Imports Jbuhrctz58.2 g/uM8Ymvalmaon34/23/4826U1H/CCD Imports Alt16 [iU]/d6-14Oyf77 [iU]/d5-43Albumin Lvl3.2 g/dLLow3.3-5.0Alk Zbvu288 [iU]/d Lhvs79-87Myov Total0.8 mg/dL0.0-1.1Total Protein6.6 g/dL6.0-7.9Jifcpmyj4.4 g/dL 1.4-4.0A/G Ratio0.9Low1.1-2.2Bili Direct0.2 mg/dL0.1-0.4Bili Indirect0.6 mg/dL 0.1-0.0Gyzacumia45/22/9936J5V/CCD Imports Troponin4.80 pg/mLLow10.10-27.10 1 Result Comment: Truong isol AM 6.2 - 19.4 Encounters Type Date Location Provider Dx Diagnosis Office Visit 09/03/2024 1:00p [email or web address] NYDIA Carreno I12.9 Hypertensive chronic kidney disease w stg 1-4/unsp chr kdny N18.4 Chronic kidney disea se, stage 4 (severe) I10 Essential (primary) hypertension E87.5 Hyperkalemia Office Visit 02/22/2024 2:20p [facility] NYDIA Bojorquez I12.9 Hypertensive chronic kidney disease w stg 1-4/unsp chr kdny E87.5 Hyperkalemia N18.4 Chronic kidney disea se, stage 4 (severe) Office Visit 10/27/2023 1:20p [facility] Franklin soria MD I12.9 Hypertensive chronic kidney disease w stg 1-4/unsp chr kdny E87.5 Hyperkalemia N18.4 Chronic kidney disea se, stage 4 (severe) Office Visit 06/22/2023 2:30p [facility] Sonia Whitney I12.9 Hypertensive chronic kidney disease w stg 1-4/unsp chr kdny E87.1 Hypo-osmolality and hyponatremia N18.32 Chronic kidney disea se, stage 3b E87.5 Hyperkalemia R80.9 Proteinuria, unspeci fied Office Visit 03/31/2023 1:00p [facility] Franklin soria MD I12.9 Hypertensive chronic kidney disease w stg 1-4/unsp chr kdny E87.1 Hypo-osmolality and hyponatremia N18.32 Chronic kidney disea se, stage 3b E87.5 Hyperkalemia R80.9 Proteinuria, unspeci fied Office Visit 09/02/2022 3:00p [facility] Sonia Whitney E87.1 Hypo-osmolality and hyponatremia I10 Essential (primary) hypertension N18.32 Chronic kidney disea se, stage 3b E87.5 Hyperkalemia Office Visit 11/17/2021 9:40a [facility] Franklin soria MD E87.1 Hypo-osmolality and hyponatremia I10 Essential (primary) hypertension N18.32 Chronic kidney disea se, stage 3b Office Visit 07/21/2021 2:40p [facility] Franklin soria MD E87.1 Hypo-osmolality and hyponatremia I10 Essential (primary) hypertension N18.32 Chronic kidney disea se, stage 3b Office Visit 06/18/2021 11:40a [facility] Franklin aguilar MD E87.1 Hypo-osmolality and [...] NYDIA Carreno 09/03/2024 E87.5 Hyperkalemia Paulina noble, HOME SECURITY ALARM INSTALLER-C 02/22/2024 I12.9 Hypertensive chr onic kidney disease with stage 1 through stage 4 chronic kidney disease, or unspecified chronic kidney disease NYDIA Carreno 02/22/2024 E87.5 Hyperkalemia Paulinadeborah noble, HOME SECURITY ALARM INSTALLER-C 02/22/2024 N18.4 Chronic kidney disease, stag e [...] Sonia Whitney 06/22/2023 E87.1 Hypo-osmolality and hyponatr emSonia Stout 06/22/2023 N18.32 Chronic kidney disease, stag e 3b Sonia Whitney 06/22/2023 E87.5 Hyperkalemia Sonia Whitney 06/22/2023 R80.9 Proteinuria, unspecified Sonia Florentino 03/31/2023 I12.9 Hypertensive chr onic kidney disease [...] or unspecified chronic kidney disease Sonia Whitney 12/08/2022 E87.1 Hypo-osmolality and hyponatr anjum Whitney Sonia 12/08/2022 N18.32 Chronic kidney disease, stag e 3b Devonte, Sonia 12/08/2022 E87.5 Hyperkalemia Sonia Whitney 12/08/2022 R80.9 Proteinuria, unspecified Jam franny, Sonia 12/08/2022 N17.9 Acute kidney failure, unspec ified Sonia Whitney 09/02/2022 E87.1 Hypo-osmolality and hyponatr emia Devonte, Sonia 09/02/2022 I10 Essential (primary) hypertantonette Whitney, Sonia 09/02/2022 N18.32 Chronic kidney disease, stag e 3b Sonia Whitney 09/02/2022 E87.5 Hyperkalemia Sonia Whitney 11/17/2021 E87.1 Hypo-osmolality and hyponatr anjum Jama MD 11/17/2021 I10 Essential (primary) trini Jama MD 11/17/2021 N18.32 Chronic kidney disease, stag e 3b Franklin Jama MD 07/21/2021 E87.1 Hypo-osmolality and hyponatr anjum Jama MD 07/21/2021 I10 Essential (primary) trini Jama MD 07/21/2021 N18.32 Chronic kidney disease, stag e 3b Franklin Jama MD 06/18/2021 E87.1 Hypo-osmolality and hyponatr anjum Jama MD 06/18/2021 I10 Essential (primary) trini Jama MD 06/18/2021 N17.9 Acute kidney failure, unspec ified Franklin Jama MD 02/07/2021 E87.1 Hypo-osmolality and hyponatr emia Maite Kamadana M.DLizet 02/07/2021 R11.2 Nausea with vomiting, unspec ified Maite Kamadana M.D. 02/07/2021 I10 Essential (primary) hyperten dami Maite Flexadana M.DLizet 02/07/2021 E78.5 Hyperlipidemia, unspecified Maite Kamadana M.D. 02/06/2021 E87.1 Hypo-osmolality and hyponatr emia Jin Daniel M.D. 02/06/2021 R11.2 Nausea with vomiting, unspec ified iJn Daniel M.D. 02/06/2021 I10 Essential (primary) trini boatengjuapnablo Daniel M.D. 02/06/2021 E78.5 Hyperlipidemia, unspecified Jin Daniel M.D. 02/05/2021 E87.1 Hypo-osmolality and hyponatr emia Jin Daniel M.D. 02/05/2021 R11.2 Nausea with vomiting, unspec ifikarlo Daniel M.D. 02/05/2021 I10 Essential (primary) devanantonette dami Daniel M.D. 02/05/2021 E78.5 Hyperlipidemia, unspecified Jin Daniel M.D. 02/04/2021 E87.1 Hypo-osmolality and hyponatr emia Jin Daniel M.D. 02/04/2021 R11.2 Nausea with vomiting, unspec ifikarlo Daniel M.D. 02/04/2021 I10 Essential (primary) trini Daniel M.D. 02/04/2021 E87.5 Hyperkalemia Brandon Burger 02/03/2021 E87.1 Hypo-osmolality and hyponatr emia Devonte, Sonia 02/03/2021 R11.2 Nausea with vomiting, unspec ified Devonte, Sonia 02/03/2021 I10 Essential (primary) trini Whitney, Sonia 02/03/2021 E87.5 Hyperkalemia Devonte, Sonia 02/02/2021 E87.1 Hypo-osmolality and hyponatr emia Jin Daniel M.D. 02/02/2021 R11.2 Nausea with vomiting, unspec ified Jin Daniel M.D. 02/02/2021 I10 Essential (primary) trini Daniel M.D. 02/02/2021 E87.5 Hyperkalemia Brandon Burger
--- OUTSIDE RECORDS SUMMARY | 2025-04-22 12:51 | XMS_ITS | CCD ---
Author Organization [facility] Inform ion Partnership [facility] Care Team Providers Care Operations Expert Name Role Phone Jaclyn Son MD Primary Care Provider EUGENE MICHELLE Referring Unavailable JACLYN SON Primary [...] Attending Unavailable Jaclyn SON Primary Care Physician [phone] Darryl Soto DO Darryl Soto Attending Provider MD Tony Son Primary Care Provider MD Chance Beavers Attending Provider MD Tony Son Primary Care Provider MD Chance Beavers Attending Provider [phone] Chance Beavers Admitting Unavailable Chance Beavers Attending Unavailable Huy, Tony R Primary Care Unavailable Chance Beavers Admitting Unavailable Chance Beavers Attending Unavailable Tony Son R Primary Care Unavailable Huy, Tony R Primary Care Unavailable Darryl Soto Admitting Unavailable Darryl Soto Attending Unavailable Chance Beavers Admitting Unavailable Ditty, Chance J Attending Unavailable Tony Son Primary Care Unavailable Radha Porter Unavailable TORIBIO CATHY Admitting Unavailable MILI ROONEYIL Attending Unavailable DR JASMIN AMEZCUA Primary Care Unavailable [facility] [place] Consulting Unavailable CATHY ROONEY Consulting Unavailable MISC, DOCTOR Admitting Unavailable MISC, DOCTOR Attending Unavailable DR JASMIN AMEZCUA Primary Care Unavailable [facility] [place] Consulting Unavailable Shannan Alfaro Unavailable Jaclyn SON Attending Unavailable Jaclyn SON Attending Unavailable Jaclyn SON Attending Unavailable Jaclyn SON Attending Unavailable Allergies Allergy ClassificationReported Allergen(s)Allergy TypeDate of OnsetReaction(s) FacilityOpioid Agonists (3 sources)CodeineDrug Qtkmeqc50-67-3312Zjdwm Health (20 sources)Codeine; Translations: [codeine]Drug Ceylkgl42-01-1477Qsqbl pain (finding)[facility] [employer] (1 source)CodeineDrug Ajkdskn42-57-2071[facility] Medications Current Medications MedicationDrug Class(es)DatesSig (Normalized)Sig (Original)Acetaminophen (1 source)Start: 39-06-8539utqovkyyhamxd (TYLENOL) tablet 650 mgacetaminophen 325 mg / HYDROcodone bitartrate 5 mg oral tablet (2 sources)Opioid AgonistStart: 01-13-2021 End: 04-49-6055vsmi 1 tablet by mouth every six hours as needed for pain HYDROcodone-acetaminophen (NORCO) 5-325 MG per tablet Indications: Closed hip fracture, right, initial encounter (HCC) Take 1 tablet by mouth every 6 hours as needed for Pain for up to 7 days. 30 tablet 0 01/13/2021 01/20/2021 Active Start: 85-97-6019QARQBhcxouy-acetaminophen (NORCO) 5-325 MG per tablet 1 tablet acetaminophen 325 mg / oxyCODONE hydrochloride 5 mg oral tablet (1 source)Opioid AgonistStart: 49-08-9269rlfEBWVKG-acetaminophen (PERCOCET) 5- 325 MG per tablet 1 [id number] 200 actuat albuterol 0.09 mg/actuat metered dose inhaler (14 sources)beta2-Adrenergic AgonistStart: 10-27-4237lrsn 2 puff(s) by inhalation every six hours for wheezingPro-Air HFA CFC free 90 mcg/inh MDI 2 puff(s), Inhalation, q6hr for wheezing, 8.5 gram, Refill(s) 1, [employer] #[facility], 152, cm, 02/17/21 15:40:00 EDT, Height/Length Dosing, 43.8, kg, 02/17/21 15:40:00 EDT, Weight Dosing Start Date: 02/17/21 Status: Orderedaluminum hydroxide 40 mg/ml / magnesium hydroxide 40 mg/ml / simethicone 4 mg/ml oral suspension (7 sources)Start: 08-41-4312tyoq 30 mL by mouth every six hours as needed aluminum & magnesium hydroxide-simethicone (MAALOX) 200-200-20 MG/5ML SUSP suspension Take 30 mLs by mouth every 6 hours as needed for Indigestion 1 Bottle 0 01/14/2021 ActiveStart: 70-68-7652tajguwuc & magnesium hydroxide-simethicone (MAALOX) 200-200-20 MG/5ML suspension 30 mLamoxicillin 500 mg oral capsule (3 sources)Penicillin-class AntibacterialStart: 50-27-9752lesa 1 capsule by mouth every eight hoursAmoxicillin 500 MG 1 capsule Orally three times a day for 10 day(s) October, ActiveStart: 04-72-4506bzwt 1 tablet by mouth every twelve hoursAmoxicillin 875 MG 1 tablet Orally every 12 hrs for 7 days May, Activeamoxicillin 875 mg / clavulanate 125 mg oral tablet (1 source)Penicillin-class AntibacterialStart: 59-98-7578rkis 1 tablet by mouth every twelve hoursAmoxicillin-Pot Clavulanate 875-125 MG 1 tablet Orally every 12 hrs for 10 day(s) Feb, ActiveAnoro Ellipta 62.5 mcg-25 mcg inhalation powder (16 sources)Start: 21-21-3207Ljyvx Ellipta 62.5 mcg-25 mcg inhalation powder 1 inh, Inhalation, Daily, 1 EA, Refill(s) 12, [facility], 154, cm, 01/25/23 13:10:00 EDT, Height/Length Dosing, 39.9, kg, 01/25/23 13:10:00 EDT, Weight Dosing Start Date: 02/21/23 Status: OrderedStart: 25-66-7809Gpycj Ellipta 62.5 mcg-25 mcg inhalation powder 1 inh, Inhalation, Daily, 1 EA, Refill(s) 12, [employer] #72, 154.9, cm, 01/21/22 13:26:00 EDT, Height/Length Dosing, 42.5, kg, 01/21/22 13:26:00 EDT, Weight Dosing Start Date: 04/13/22 Status: OrderedStart: 87-90-5223Wucwi Ellipta 62.5 mcg-25 mcg inhalation powder 1 inh, Inhalation, Daily, 1 EA, Refill(s) 12, otherreason (Rx) Start Date: 01/21/22 Status: OrderedStart: 05-08-2021 End: 81-16-2191Ndphn Ellipta 62.5 mcg-25 mcg inhalation powder 1 inh, Inhalation, Daily for 30 day(s), 30 blister(s), Refill(s) 5, [employer] #72, 154.9, cm, 05/04/21 12:55:00 EST, Height/Length Dosing,42.8, kg, 05/04/21 12:55:00 EST, Weight Dosing Start Date: 05/08/21 Stop Date: 11/04/21 Status: OrderedAnoro Ellipta 62.5-25 MCG/INH (3 sources)take 1 puff(s) by inhalation once dailyAnoro Ellipta 62.5-25 MCG/INH 1 puff Inhalation Once a day Activeaspirin 81 mg delayed release oral tablet (20 sources)Platelet Aggregation Inhibitor, Nonsteroidal Anti-inflammatory Drug Start: 29-66-4297bmsx 1 tablet by mouth once dailyaspirin 81 mg Oral EC Tab 81 mg = 1 tab(s), Oral, Daily, # 90 tab(s), Refills(s) 3, other reason (Rx) Start Date: 01/21/22 Status: OrderedStart: 77-87-3818vxul 325 mg by mouth once daily Aspirin Active 325 MG PO Daily March 14, 2022 11:00pmatorvastatin 20 mg oral tablet (6 sources)HMG-CoA Reductase InhibitorStart: 55-27-0635wene 1 tablet by mouth once dailyatorvastatin (LIPITOR) 20 MG tablet Take 20 mg by mouth nightly 0 06/03/2020 Cepewp65 actuat budesonide 0.16 mg/actuat / formoterol fumarate 0.0045 mg/actuat metered dose inhaler (7 sources)Corticosteroid, beta2-Adrenergic AgonistStart: 17-42-4353dcqq 2 puff(s) by inhalation twice dailybudesonide-formoterol (SYMBICORT) 160-4.5 MCG/ACT AERO Inhale 2 puffs into the lungs 2 times daily 1 Inhaler 3 01/14/2021 ActiveStart: 13-49-2178fthwokgjyt-formoterol (SYMBICORT) 160-4.5 MCG/ACT inhaler 2 puffchlorhexidine gluconate 1.2 mg/ml mouthwash (1 source)Start: 11-72-0237pzdc 10 mL by mouth twice dailyPeridex 0.12 % gargle 10 ml Mouth/Throat twice daily May, Activedocusate sodium 100 mg oral capsule (7 sources)Start: 57-91-6973loqc 1 capsule by mouth once dailydocusate sodium (COLACE, DULCOLAX) 100 MG CAPS Take 100 mg by mouth daily 30 capsule 0 01/14/2021 Activedocusate sodium 50 mg / sennosides, longterm 8.6 mg oral tablet (7 sources)Start: 93-52-0074gmik 1 tablet by mouth twice dailysennosides- docusate sodium (SENOKOT-S) 8.6-50 MG tablet Take 1 tablet by mouth 2 times daily 60 tablet 0 01/14/2021 Active0.3 ml enoxaparin sodium 100 mg/ml prefilled syringe (7 sources)Low Molecular Weight HeparinStart: 14-60-7836gjkjnunohk (LOVENOX) 30 MG/0.3ML injection Inject 0.3 mLs into the skin daily 10 mL 0 01/14/2021 Active famotidine 40 mg oral tablet (20 sources)Histamine-2 Receptor AntagonistStart: 12-87-5089sksb 1 tablet by mouth once daily at bedtimefamotidine 40 mg Tab 40 mg = 1 tab(s), Oral, Once a day (at bedtime), # 90 tab(s), Refills(s) 3, Pharmacy: [facility], 154, cm, 08/02/23 10:44:00 EST, Height/Length Dosing, 41.3, kg, 08/02/23 10:44:00 EST, Weight Dosing Start Date: 08/02/23 Status: OrderedStart: 07-23-2021 take 1 tablet by mouth once daily at bedtimefamotidine 40 mg Tab 40 mg = 1 tab(s), Oral, Once a day (at bedtime), # 90 tab(s), Refills(s) 1, Pharmacy: [facility], 154, cm, 08/30/22 14:11:00 EDT, Height/Length Dosing, 42.7, kg, 08/30/22 14:11:00 EDT, Weight Dosing Start Date: 09/23/22 Status: Orderedfluticasone propionate 0.05 mg/actuat metered dose nasal spray (1 source)CorticosteroidStart: 86-68-4471kyea 2 spray(s) nasal route once daily Fluticasone Propionate 50 MCG/ACT 2 sprays Nasally Once a day for 14 day(s) Feb, Dlofxg55 hr guaiFENesin 600 mg extended release oral tablet (7 sources)Start: 57-25-9056mkbt 1 tablet by mouth twice dailyguaiFENesin (MUCINEX) 600 MG extended release tablet Take 1 tablet by mouth 2 times daily 60 tablet0 01/14/2021 Activelactobacillus rhamnosus gg [id number] unt oral capsule (7 sources)Start: 04-13-2483ygln 1 capsule by mouth once daily at breakfast lactobacillus (CULTURELLE) capsule Take 1 capsule by mouth daily (with breakfast) 30 capsule 0 01/14/2021 ActiveStart: 58-96-9057twaudndjjywni (CULTURELLE) capsule 1 capsulelevalbuterol 0.417 mg/ml inhalation solution (10 sources)beta2-Adrenergic AgonistStart: 73-12-5438vjcphoxucewf (XOPENEX) 1.25 MG/3ML nebulizer solution Take 3 mLs by nebulization every 4 hours as needed for Wheezing 30 mL 0 01/14/2021 ActiveStart: 01-09-2021 End: 34-34-5614bcaptvnykbpl (XOPENEX) nebulizer solution 1.25 mgStart: 51-14-0535hbzbqrewjdns (XOPENEX) 1.25 MG/3ML nebulizer solutionlevoFLOXacin 250 mg oral tablet (2 sources)Quinolone AntimicrobialStart: 01-14-2021 End: 71-30-8953uzww 1 tablet by mouth once dailylevoFLOXacin (LEVAQUIN) 250 MG tablet Take 1 tablet by mouth daily for 5 days 5 tablet 0 ActiveStart: 79-59-3906ienbPLWNzmdr (LEVAQUIN) 250 MG/50ML infusion 250 mg loratadine 10 mg oral tablet (20 sources)Start: 75-33-8175xuzf 1 tablet by mouth once dailyloratadine 10 mg Tab 10 mg = 1 tab(s), Oral, Daily, # 30 tab(s), Refills(s) 5, Pharmacy: [facility], 154.9, cm, 03/12/21 10:12:00 EDT, Height/Length Dosing, 42, kg, 03/12/21 10:12:00 EDT, Weight Dosing Start Date: 03/12/21 Status: Ordered magnesium hydroxide 80 mg/ml oral suspension (1 source)Start: 21-63-5004bvkn 30 mL by mouth once daily as needed for nwiyfdieldbd69 mL, Oral, DAILY PRN, Constipation, Starting on Tue01/09/21 at 1943 First line therapy for constipation. Post-opmeclizine hydrochloride 12.5 mg oral tablet (17 sources)AntiemeticStart: 23-26-4466cevpwqxpf 12.5 mg Tab 12.5 mg = 1 tab(s), Oral, TID, PRN for dizziness, Use upto three times daily for dizziness as needed, # 30 tab(s), Refills(s) 2, Pharmacy: [facility], 154.9, cm,07/29/22 13:20:00 EST, Height/Length Dosing, 42.6, kg, 07/29/22 13:20:00 EST, Weight Dosing Start Date: 07/29/22 Status: OrderedStart: 31-97-5934awpp 12.5 mg by mouth three times dailyMeclizine Active 12.5 MG PO Three times daily March 14, 2022 11:00pmStart: 13-95-0098dnxpmhnec 12.5 mg Tab 12.5 mg = 1 tab(s), Oral, TID, PRN for dizziness, Use upto three times daily for dizziness as needed, # 30 tab(s), Refills(s) 2, Pharmacy: [facility] #[facility], 154.9, cm,10/27/21 12:15:00 EDT, Height/Length Dosing, 41.5, kg, 10/27/21 12:15:00... Start Date: 10/27/21 Status: Ordered2 ml metoclopramide 5 mg/ml prefilled syringe (1 source)Dopamine-2 Receptor AntagonistStart: 80-30-4411knuaeleldihscx (REGLAN) injection 5 mg1 ml morphine sulfate 2 mg/ml cartridge (3 sources)Opioid AgonistStart: 04-25-0059nxww 2 mg by mouth every four hours as needed for pain2 mg, Intravenous, EVERY 4 HOURS PRN, Pain Moderate (4-6), Pain Severe (7-10), Starting on Luz Elena 01/08/21 at 2124 If oral and IV narcotics ordered, use oral first and only use IV if oral is ineffective or cannot take oral. Do Not give oral and IV within 1 hour of each other unless sp ecifically ordered.Start: 01-08-2021 End: 32-09-9378wrnnonxd sulfate (PF) injection 4 mgStart: 01-08-2021 End: 69-96-3041jdwjmhui sulfate (PF) injection 4 mgMultivitamins and Minerals (16 sources)Start: 19-00-3402bcxy 1 tablet by mouth once dailyMultivitamins and Minerals 1 tab, Oral, Daily, Refill(s) 0 Start Date: 02/23/21 Status: Ordered naproxen sodium 550 mg oral tablet (1 source)Nonsteroidal Anti-inflammatory DrugStart: 07-20-2865vebe 1 tablet by mouth every twelve hours at mealtime as neededNaproxen Sodium 550 MG 1 tablet with food or milk as needed Orally every 12 hrs for 7 days May, Active ondansetron 4 mg disintegrating oral tablet (7 sources)Serotonin-3 Receptor AntagonistStart: 46-28-5269ldtj 1 tablet by mouth every eight hours as needed for nauseaondansetron (ZOFRAN-ODT) 4 MG disintegrating tablet Take 1 tablet by mouth every 8 hours as needed for Nausea or Vomiting 30 tablet 0 01/14/2021 ActiveStart: 01-08-2021 End: 11-28-3135fjgjbfnordr (ZOFRAN) injection 4 mgondansetron (ZOFRAN-ODT) disintegrating tablet 4 mg (1 source)Start: 55-48-4510nsqsoopdfuy (ZOFRAN-ODT) disintegrating tablet 4 mg pantoprazole 40 mg delayed release oral tablet (8 sources)Proton Pump InhibitorStart: 38-90-7884hpvs 1 tablet by mouth once daily before breakfastpantoprazole (PROTONIX) 40 MG tablet Take 1 tablet by mouth every morning (before breakfast) 30 tablet 3 01/15/2021 ActiveStart: 12-34-1896yopj 1 tablet by mouth once daily before breakfastpantoprazole (PROTONIX) 40 MG tablet Take 1 tablet by mouth every morning (before breakfast) 30 tablet 3 01/15/2021 ActiveStart: 16-88-1040gvuzawonbrzj (PROTONIX) tablet 40 mgpatiromer 8400 mg powder for oral suspension (5 sources)Potassium BinderStart: 37-72-4041Fuscjnje 8.4 g oral powder for reconstitution Oral, 0 Refill(s), Refills(s) 0 Start Date: 04/06/23 Status: Orderedtake 1 dose by mouth once dailyVeltassa 8.4 GM 1 packet dissolved in water. Take other medications at least 3 hours before or 3 hours after this medication Orally Once a day Activepolyethylene glycol 3350 86501 mg powder for oral solution (4 sources)Osmotic LaxativeStart: 01-08-2021 End: 97-96-2305ubur 17 g by mouth once daily as needed for constipation polyethylene glycol (GLYCOLAX) 17 g packet Take 17 g by mouth daily as needed for Constipation 527 g 1 01/14/2021 02/13/2021 ActivePro-Air HFA CFC free 90 mcg/inh MDI (2 sources)Start: 68-48-6016bvzs 2 puff(s) by inhalation every six hours for wheezingPro-Air HFA CFC free 90 mcg/inh MDI 2 puff(s), Inhalation, q6hr for wheezing, 8.5 gram, Refill(s) 1, [facility], 152, cm, 02/17/21 15:40:00 EDT, Height/Length Dosing, 43.8, kg, 02/17/21 15:40:00 EDT, Weight Dosing Start Date: 02/17/21 Status: Orderedpromethazine hydrochloride 25 mg oral tablet (2 sources)PhenothiazineStart: 43-54-7032qnzhhngrsjmn (PHENERGAN) tablet 25 mg Start: 01-08-2021 End: 56-19-6679dyhgxabvasbg (PHENERGAN) injection 12.5 mgsodium chloride 1000 mg oral tablet (20 sources)Start: 63-02-7822wymu 1000 mg by mouth twice dailySodium Chloride Active 1000 MG PO Twice daily March 14, 2022 11:00pmStart: 74-49-6414joqg 1 tablet by mouth once dailySodium Chloride 1 g oral tablet 1 tab, Oral, Daily, Refills(s) 0 Start Date: 02/23/21 Status: OrderedStart: 89-02-2613oukb 1 tablet by mouth once dailySodium Chloride 1 g oral tablet 1 tab, Oral, Daily, Refills(s) 0 Start Date: 02/23/21 Status: OrderedStart: 20-40-1431jypwgq chloride (OCEAN, BABY AYR) 0.65 % nasal spray 2 sprays by Nasal route 4 times daily 1 Bottle0 01/14/2021 ActiveStart: 01-08-2021 End: .9 % sodium chloride infusionStart: 43-95-9643eash 1 dose intravenously twice daily5-40 mL, Intravenous, EVERY 12 HOURS SCHEDULED (2 times per day), First dose on Tue01/09/21 at 2100For Line Patency: Peripheral IV = 5 mL; [...] parenteral nutrition, contrast media, or after obtaining bloodsample) use: Peripheral IV = 10 mL Midline or Central Line = 20 mL/lumen Post-opStart: 01-08-2021 take 5-40 mL intravenously once5-40 mL, Intravenous, PRN, Line Care, Starting on Tue01/09/21 at 1943 After every IV line use Post-opStart: 11-52-9745atml 25 mL intravenously every hour as aictgu78 mL, Intravenous, at 100 mL/hr, PRN, If patient receiving piggyback infusions without ordered maintenance IV fluids or with frequent/long duration piggyback infusions, Starting on Tue01/09/21 at 1943 Administer at the same rate as the piggyback being infused. Post-opsodium zirconium cyclosilicate 80345 mg powder for oral suspension (3 sources)Start: 95-28-8899Gzeptro 10 g oral powder for reconstitution See Instructions, 10 gm every 3 days, # 30 EA, Refills(s) 5 Start Date: 08/02/23 Status: Ordered7 actuat umeclidinium 0.0625 mg/actuat / vilanterol 0.025 mg/actuat dry powder inhaler (4 sources)Anticholinergic, beta2-Adrenergic AgonistStart: 03-15-2022 Umeclidinium-Vilanterol (Anoro Ellipta) 62.5-25 mcg/actuation blister with device Active 1 INH INHALATION Daily March 14, 2022 11:00pmtake 1 puff(s) by inhalation once dailyAnoro Ellipta 62.5-25 MCG/INH 1 puff Inhalation Once a day ActiveVentolin HFA 90 mcg/inh Aerosol (6 sources)Start: 99-31-4598rrxm 1 puff(s) by inhalation every four hours for wheezingVentolin HFA 90 mcg/inh Aerosol 1 puff(s), Inhalation, q4hr for wheezing, 18 gram, Refill(s) 5, [facility], 154.9, cm, 05/04/21 12:55:00 EST, Height/Length Dosing, 42.8, kg, 05/04/21 12:55:00 EST, Weight Dosing Start Date: 05/08/21 Status: Ordered Completed/Discontinued Medications MedicationDrug Class(es)DatesSig (Normalized)Sig (Original)ceFAZolin 1000 mg injection (2 sources)Cephalosporin AntibacterialStart: 01-09-2021 End: 15-52-3233rjQQVcemo (ANCEF) injection 2,000 mgStart: 01-09-2021 End: 47-25-2366ggADWavsu (ANCEF) 2-3 GM-%(50ML) IVPB (duplex)ceFAZolin (ANCEF) 1,000 mg in dextrose 5 % 50 mL IVPB (mini-bag) (1 source)Start: 01-10-2021 End: 20-75-3810uuDFHsibv (ANCEF) 1,000 mg in dextrose 5 % 50 mL IVPB (mini-bag) ceFAZolin (ANCEF) 1,000 mg in sterile water 10 mL IV syringe (1 source)Start: 01-10-2021 End: 11,000 mg, Intravenous, EVERY 8 HOURS, 3 doses, First dose on 01/10/21 at 0100, Last dose on 01/10/21 at 1700 Administer over 5 mins. Reconstitute 1 g vial with 2.5 mL SterileWater. Withdraw 3.1 mL from vial and further dilute with 6.9 mL Sterile Water (final administration volume=10 mL). Post-opferrous sulfate 325 mg oral tablet (1 source)Start: 01-13-2021 End: 84-11-2883vwoyibw sulfate (IRON 325) tablet 325 mg Problems Active Problems Problem ClassificationProblemDateDocumented DateEpisodic/ChronicAnal and rectal conditions (1 source)Rectal polyp; Translations: [Rectal polyp]Onset: 42-44-2475Nsdmgsco Bacterial infection; unspecified site (1 source)Other specified bacterial agents as the cause of diseases classified elsewhereEpisodicChronic kidney disease (20 sources)Chronic kidney disease stage 3B ; Translations: [Chronic kidney disease, stage 3b]Onset: 31-57-8471UzxkbmdMbzqtas on above:Added per outpatient CDI policyChronic kidney disease (1 source)Chronic kidney disease; Translations: [CHRONIC KIDNEY DISEASE STAGE 3B]Onset: 70-68-8918Cdajwmt obstructive pulmonary disease and bronchiectasis (20 sources)Asthma-chronic obstructive pulmonary disease overlap syndrome; Translations: [Chronic obstructive lung disease]Onset: 122224-85-5722 ChronicConditions associated with dizziness or vertigo (18 sources)Benign paroxysmal positional vertigo; Translations: [Benign paroxysmal vertigo, unspecified ear]Onset: 85-30-6496AcletwjoYorvtcvqjb and other anemia (20 sources)Anemia of chronic uwnfixu00-62-4211CzcveucRapzzfvprl and other anemia (3 sources)Anemia; Translations: [Anemia in other chronic diseases classified elsewhere]Onset: 83-45-5725EfqcnaqEqtzdczvpq and other anemia (1 source)Anemia; Translations: [Anemia, unspecified]EpisodicDisorders of lipid metabolism (7 sources)Mixed hyperlipidemia; Translations: [Mixed hyperlipidemia]Onset: 816606-51-9354CbhbopbEqbprhhic of teeth and jaw (1 source)Periapical abscess without sinusEpisodicE Codes: Fall (1 source)Accidental fall ; Translations: [Unspecified fall, initial encounter] EpisodicEssential hypertension (14 sources)Benign essential hypertension; Translations: [Essential hypertension]Onset: 806066-96-1485RktlkdgZgsen and electrolyte disorders (20 sources)Hyponatremia; Translations: [Hypo-osmolality and or hyponatremia] Onset: 767387-47-0076LvmeyohuKzpkttcb of neck of femur (hip) (15 sources)Closed fracture of hip; Translations: [Fracture of unspecified part of neck of right femur, initialencounter for closed fracture]Onset: 01-08-2021 EpisodicHypertension with complications and secondary hypertension (4 sources)Hypertensive chronic kidney disease with stage 1 through stage 4 chronic kidney disease, or unspecified chronic kidney disease; Translations: [HTN CKD W/STAGE 1-4 CKD/UNS CKD]Onset: 12-16-8520AzmhvrwXrabbn and vomiting (7 sources)Nausea and vomiting; Translations: [Nausea with vomiting, unspecified]Onset: 87-96-6854ZejslmlvMmwbg and unspecified benign neoplasm (8 sources)Polyp of colon; Translations: [Polyp of colon]Onset: 09-18-2021 EpisodicOther and unspecified benign neoplasm (16 sources)Hyperplastic polyp of large zyyepzklu46-50-3204CdmvflxjLmbvj and unspecified benign neoplasm (16 sources)Polyp of ascending itiox53-75-9797JjdmxmccQmvhx and unspecified benign neoplasm (5 sources)History of polyp of colon; Translations: [Personal history of colonic polyps]EpisodicOther and unspecified benign neoplasm (1 source)Benign neoplasm of colon, unspecified; Translations: [Benign neoplasm of colon, unspecified]Onset: 65-34-6451FbgdoodqIidxn diseases of kidney and ureters (1 source)Renal impairment; Translations: [Disorder of kidney and ureter, unspecified]EpisodicOther gastrointestinal disorders (20 sources)Heartburn; Translations: [Heartburn]Onset: EpisodicOther gastrointestinal disorders (16 sources)Hyperplastic polyp of lbcvxyang03-77-8579EkdrwfxsMrfah nutritional; endocrine; and metabolic disorders (18 sources)Body mass index less than 20; Translations: [Body mass index (BMI) 19.9 or less, adult]Onset: 420967-77-4005UgnuqoruYbpcq screening for suspected conditions (not mental disorders or infectious disease) (3 sources)Stool DNA-based colorectal cancer screening positive; Translations: [Procedure carried out on subject]Onset: 841283-65-2837LdechpgeKboed upper respiratory disease (9 sources)Allergic rhinitis due to pollen; Translations: [Allergic rhinitis due to pollen]Onset: 919484-85-0060TpsaagrBksbh upper respiratory infections (4 sources)Acute pharyngitis, unspecified; Translations: [Acute pharyngitis due to other specified organisms]EpisodicResidual codes; unclassified (2 sources)Refused procedure - parent's wish; Translations: [Procedure and treatment not carried out because of patient's decision for unspecified reasons] Onset: 54-93-7562DnhvjoixOucgtxkeu-related disorders (20 sources)Nicotine dependence; Translations: [Nicotine dependence, cigarettes, uncomplicated]Onset: 486761-55-8058SdqookxVrufjmcfemsd (1 source)Encounter for preprocedural laboratory examination; Translations: [Encounter for preprocedural laboratory examination]Onset: 03-11-2022 Unclassified (10 sources)Mammogram lryihlsh34-26-7268 Past or Other Problems Problem ClassificationProblemDateDocumented DateEpisodic/ChronicOther and unspecified benign neoplasm (1 source)Polyp of colonOnset: 12-21-2021 Resolved: 78-53-6733MjgyvzmrPbtpwjwvhswm (17 sources)Patient encounter -42-4404 Results Test NameValueInterpretationReference RangeFacilityAmbulatory Visit Summaryon 33-77-1883Qsqvqfqosv Visit SummaryAmbulatory Visit Summary LENCHO CANDELARIO :1950 Visit Date:09/11/2024 [...] (Lokelma 10 g oral powder for reconstitution) umeclidinium-vilanterol (Anoro Ellipta 62.5 mcg-25 mcg inhalation powder) [...] Follow-Up Appointments 2025 1:00 PM EDT Where: [facility] [address] [id number]- Medications What How Much When Instructions Changed [...] Mouth Once a day (at bedtime) Unchanged umeclidinium-vilanterol (Anoro Ellipta 62.5 mcg-25 mcg inhalation powder) [...] Syringe , 0.5 mL, IntraMuscular. For: Influenza vaccinationgiven influenza virus vaccine, inactivated, IntraMuscular Allergies codeine [...] provider if you have any questionsor concerns. How do I get ready to [...] that you are quitti (more content not included)...[facility] SummaryAmb[facility] Visit Summary LENCHO CANDELARIO :1950 Visit Date:09/11/2024 [...] (Lokelma 10 g oral powder for reconstitution) umeclidinium-vilanterol (Anoro Ellipta 62.5 mcg-25 mcg inhalation powder) [...] Follow-Up Appointments 2025 1:00 PM EDT Where: [place] [id number] Medications What How Much When Instructions Changed [...] Mouth Once a day (at bedtime) Unchanged umeclidinium-vilanterol (Anoro Ellipta 62.5 mcg-25 mcg inhalation powder) [...] Syringe , 0.5 mL, IntraMuscular. For: Influenza vaccinationgiven influenza virus vaccine, inactivated, IntraMuscular Allergies codeine [...] you for choosing us for your care. [facility] Medicine Office/Clinic Noteon [id number] Medicine Office/Clinic NoteD[facility]/Clinic Note Chief Complaint Medicare Wellness [...] to provide direct supervision at the time ofthis visit. I have provided supervision of the [...] and all current CDC recommended immunizations, relevant riskrecommendations and the following patient brochures were given. Reviewed Medicare Prevention Services checklist. CDC-Falls Prevention and home safety screening reviewed. Patient denies any falls in last 12 months, voices no worry about falling. Exhibits no problems with sitting, standing or ambulation. Patient aware with keeping walk way area free of clutter to prevent tripping and/or falling. [place] Advance Directives reviewed. Documents declined. Patient denies [...] concerns with bowel/ bladder. Colonoscopy last completed 10/3/22. Reviewed pain symptoms : denies pain, no [...] kidney disease, stage 3b) Follows up with Pre Certification Specialist, Dr. Rooney. Office notes available in chart for PCP to review. Patient voices understanding with avoiding NSAID's. Healthy Kidney Nutritional education material reviewedand provided with patient. Goals to keep blood [...] of chronic disease At (more content not included)...[facility] HospitalComment on above:Result Comment: Electronically Signed By: HUY LIM, Jaclyn\.br\Date and Time Signed: 09/11/24 15:20 EDT\.br\Electronically Co-Signed By: Evita ALVAREZ, Lubna Stevenson\.br\Date and Time Co-Signed: 09/11/24 14:58 EDTFamily Medicine Office/Clinic NoteFamily Medicine Office/Clinic Note Chief Complaint annual chk [...] have his notes or laboratories drawn through [facility] at my disposal. Apparently he made no [...] appears older than stated age. Has very limitednative dentition but nothing appears broken or infected. Oropharynx is pink and moist. Neck is verythin supple no thyromegaly no JVD or bruits. TMs are clear grossly normal hearing conjunctiva clear. Smell of tobacco smoke is present. Lungs are greatly diminished there are faint expiratory wheezing at the bases no rhonchi. Cardiac distant S1-S2 with regular rate and rhythm no murmurs. Abdomen very thin nontender no organomegaly no pulsatile masses. Lower extremities without edema. Skin is verypale. There are senile purpura on the arms. [...] on Lokelma under the care of the material scheduler. 8. 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 Please call daughter toschedule appointment with PCP on September 11 after medicare appointment.[facility] HospitalCHEMISTRYOrdered By: SYSTEM SYSTEM on 17-48-2730Uiokrsv [Mass/Vol]3.7 g/dLNormal3.3 - 5.0 gm/dL Remisol ChemAlbumin/Globulin [Mass ratio]1.2 {ratio}Normal1.1 - 2.2Remisol Chem Alk Phos74 [iU]/lSltnlc73 - 98 Int._Unit/LRemisol ChemALT9 [iU]/dNormal6 - 46 Int._Unit/LRemisol ChemAnion gap [Moles/Vol]9 mmol/LNormal6 - 16 mEq/LRemisol LhumPXY58 [iU]/dNormal5 - 43 Int._Unit/LRemisol ChemBili Total0.2 mg/dLNormal0.0 - 1.1 mg/dLRemisol ChemCalcium [Mass/Vol]9.4 mg/dLNormal8.9 - 11.1 mg/dLRemisol ChemChloride [Moles/Vol]108 mmol/SQovtic310 - 111 mmol/LRemisol ChemCO2 [Moles/Vol]28 mmol/XJkbwgx50 - 31 mmol/LRemisol ChemCreatinine [Mass/Vol]1.9 mg/dLHigh0.5 - 1.3 mg/dLRemisol CowkhLSZ02 mL/min/1.73 m2Low>=59mL/min/1.73 m2 Remisol ChemGlobulin (S) [Mass/Vol]3.0 g/dLNormal1.4 - 4.0 gm/dLRemisol Chem Glucose [Mass/Vol]96 mg/sWQmwsgz11 - 199 mg/dLRemisol ChemPotassium [Moles/Vol] 5.1 mmol/LNormal3.5 - 5.3 mmol/LRemisol ChemProtein [Mass/Vol]6.7 g/dLNormal6.0 - 7.8 gm/dLRemisol ChemSodium [Moles/Vol]140 mmol/HUipmin202 - 145 mmol/LRemisol ChemUrea nitrogen [Mass/Vol]27 mg/dLHigh5 - 21 mg/dLRemisol ChemUrea nitrogen/Creatinine [Mass ratio]14 mg/ynInoflp83 - 20Remisol ChemHEMATOLOGY Ordered By: SYSTEM SYSTEM on 18-66-4507Dfsxkcya Absolute0.0 E9/LNormal0.0 - 0.2 E9/LRemisol HemeBasophils/100 WBC (Bld)0.4 %Normal0.0 - 2.0 %Remisol HemeEos Absolute0.1 E9/LNormal0.0 - 0.5 E9/LRemisol HemeEosinophils/100 WBC (Bld)1.1 % Normal0.0 - 8.0 %Remisol HemeErythrocyte distribution width (RBC) [Ratio]14.9 % High10.9 - 14.2 %Remisol HemeHematocrit (Bld) [Volume fraction]33.0 %Low34.0 - 46.0 %Remisol HemeHemoglobin (Bld) [Mass/Vol]10.3 g/dLLow12.0 - 16.0 gm/dL Remisol HemeLymph Absolute2.0 E9/LNormal1.0 - 4.0 E9/LRemisol Heme Lymphocytes/100 WBC (Bld)32.3 %Ednkpk70.0 - 50.0 %Remisol HemeMCH (RBC) [Entitic mass]26.2 pgLow27.0 - 34.0 pgRemisol HemeMCHC (RBC) [Mass/Vol]31.2 g/dLLow31.4 - 36.0 gm/dLRemisol HemeMCV (RBC) [Entitic vol]83.9 eOLnumpu76.0 - 100.0 fL Remisol HemeMono Absolute0.5 E9/LNormal0.2 - 1.0 E9/LRemisol HemeMonocytes/100 WBC (Bld)8.3 %Normal4.0 - 14.0 %Remisol HemeNeutro Absolute3.6 E9/LNormal2.0 - 7.5 E9/LRemisol HemeNeutro Auto57.9 %Arpule66.0 - 75.0 %Remisol HemePlatelet 174.0 E9/OChzmor377.0 - 500.0 E9/LRemisol HemePlatelet mean volume (Bld) [Entitic vol]9.4 fLNormal6.4 - 10.8 fLRemisol HemeRBC3.9 E12/LLow4.3 - 5.9 E12/L Remisol HemeWBC6.2 E9/LNormal4.0 - 11.0 E9/LRemisol HemeQuick Strepon 02-25-2023 S. pyogenes Org specific cx Ql (Throat)[employer]South [employer] Other Quick StrepSouth [employer] Other Quick Strepon 10-22-2022S. pyogenes Org specific cx Ql (Throat)NegativeDYNAGENT SOFTWARE SL Other Qurmk StrepSouth Optical Technology Other MAGNESIUMon 57-98-8812Sikbaizoj [Mass/Vol]1.6 mg/dL Critically low1.8-2.4The Wilson HealthComment on above:Performed By: #### MG, RENAL #### [facility] [address] [address] [address] Agustín OdellRENAL FUNCTION PANELon 66-50-1961Qajfhfl [Mass/Vol]3.4 g/dLNormal 3.4-5.0The [facility] HealthComment on above:Performed By: #### MG, RENAL #### [facility] [address] [address] [address] Agustín OdellCalcium [Mass/Vol]9.2 mg/dLNormal8.5-10.1The [facility] Comment on above:Performed By: #### MG, RENAL #### [facility] [address] [address] [address] Agustín OdellChloride [Moles/Vol]108 mmol/LCritically kbzo71-233Nwu [facility] HealthComment on above:Performed By: #### MG, RENAL #### [facility] [address] [address] [address] Agustín OdellCO2 [Moles/Vol]26.1 mmol/GYcznsm50.0-32.0The [facility] Comment on above:Performed By: #### MG, RENAL #### [facility] [address] [address] [address] Agustín dOellCreatinine [Mass/Vol]1.70 mg/dLCritically high0.55-1.02The [facility] HealthComment on above:Performed By: #### MG, RENAL #### [facility] [address] [address] [address] Randolph ChangEGFR-AF AURPPTKV02 mL/min/1.11u5Gnssskjaie low>=60The [facility] HealthComment on above:Performed By: #### MG, RENAL #### [facility] [address] [address] [address] Randolph ChangEGFR-NON AF LGEORIHT23 mL/min/1.59l7Wrgmenovck low>=60The [facility] HealthComment on above:Performed By: #### MG, RENAL #### [facility] [address] [place] [address] Dr. Agustín OdellGlucose [Mass/Vol]190 mg/dLCritically iqyf89-025Bft [facility] HealthComment on above:Performed By: #### MG, RENAL #### [facility] [address] [place] [address] Dr. Agustín OdellPhosphate [Mass/Vol]3.3 mg/dLNormal2.6-4.7The [facility] Comment on above:Performed By: #### MG, RENAL #### [facility] [address] [place] [address] Dr. Agustín OdellPotassium [Moles/Vol]4.4 mmol/LNormal3.5-5.1[facility] Comment on above:Performed By: #### MG, RENAL #### [facility] [address] [place] [address] Dr. Agustín OdellSodium [Moles/Vol]144 mmol/YBywtjs881-290OqpSamaritan North Health Center Comment on above:Performed By: #### MG, RENAL #### [facility] [address] [place] [address] Dr. Agustín OdellUrea nitrogen [Mass/Vol]21.0 mg/dLCritically high7.0-18.0The [facility] HealthComment on above:Performed By: #### MG, RENAL #### [facility] [address] [place] [address] Dr. Agustín OdellCHEMISTRYOrdered By: SYSTEM SYSTEM on 39-10-3541Pdqpl gap [Moles/Vol]11 mmol/LNormal6 - 16 mEq/LFTMC RemisolCalcium [Mass/Vol]9.3 mg/dL Normal8.9 - 11.1 mg/dLFTMC RemisolChloride [Moles/Vol]105 mmol/XAmjgjw378 - 111 mmol/LFTMC RemisolCO2 [Moles/Vol]26 mmol/FRvvawy30 - 31 mmol/LFTMC Remisol Creatinine [Mass/Vol]1.5 mg/dLHigh0.5 - 1.3 mg/dLFTMC RemisolGFR/1.73 sq M.predicted among blacks MDRD (S/P/Bld) [Vol rate/Area]41 mL/min/1.73 m2Low >=59mL/min/1.73 m2[facility] Chem SGFR/1.73 sq M.predicted among non-blacks MDRD (S/P/Bld) [Vol rate/Area]34 mL/min/1.73 m2Low>=59mL/min/1.73 m2[facility] Chem S Glucose [Mass/Vol]116 mg/eMLnrkup14 - 199 mg/dLMARY HURLEY [facility] [place] RemisolPotassium [Moles/Vol] 6.0 mmol/LInvalid Interpretation Code3.5 - 5.3 mmol/LFTMC RemisolComment on above:Result Comment: Critical Result verified by repeat analysis\Critical Result S_K:6.0 Called to HAYLEE BAJWA AT [facility] by SAL COREA And Read Back For Confirmation at: 08/30/2022 18:27:25Sodium [Moles/Vol]136 mmol/LNormal 135 - 145 mmol/LFTMC RemisolUrea nitrogen [Mass/Vol]27 mg/dLHigh5 - 21 mg/dLFTMC RemisolUrea nitrogen/Creatinine [Mass ratio]18 mg/cdLuamge17 - 20[facility] Remisol CHEMISTRYOrdered By: SYSTEM SYSTEM on 51-39-3547Axext gap [Moles/Vol]12 mmol/L Normal6 - 16 mEq/LFTMC RemisolCalcium [Mass/Vol]9.0 mg/dLNormal8.9 - 11.1 mg/dL [facility] RemisolChloride [Moles/Vol]102 mmol/CVvafwz428 - 111 mmol/LFTMC RemisolCO2 [Moles/Vol]26 mmol/AJuvyun34 - 31 mmol/LFTMC RemisolCreatinine [Mass/Vol]1.6 mg/dLHigh0.5 - 1.3 mg/dLFTMC RemisolGFR/1.73 sq M.predicted among blacks MDRD (S/P/Bld) [Vol rate/Area]38 mL/min/1.73 m2Low>=59mL/min/1.73 m2FT Chem S GFR/1.73 sq M.predicted among non-blacks MDRD (S/P/Bld) [Vol rate/Area]32 mL/min/1.73 m2Low>=59mL/min/1.73 m2FT Chem SGlucose [Mass/Vol]111 mg/dLNormal 55 - 199 mg/dLFTMC RemisolPotassium [Moles/Vol]5.1 mmol/LNormal3.5 - 5.3 mmol/L [facility] RemisolSodium [Moles/Vol]135 mmol/SHqojyr111 - 145 mmol/LFTMC Remisol Troponin I.cardiac [Mass/Vol]29.90 pg/hMForb22.10 - 27.10 pg/mLFTMC RemisolUrea nitrogen [Mass/Vol]25 mg/dLHigh5 - 21 mg/dLFTMC RemisolUrea nitrogen/Creatinine [Mass ratio]16 mg/waDfvnyo75 - 20FT[facility] RemisolPotassium [Moles/Vol]6.0 mmol/L Invalid Interpretation Code3.5 - 5.3 mmol/LFTMC RemisolComment on above:Result Comment: Critical Result verified by repeat analysis\Critical Result S_K:6.0 Called to NABILA HOLLEY AT [facility] by DANGELO LEMA And Read Back For Confirmation at: 08/06/2022 15:53:58COAGULATIONOrdered By: Heidy Varner on 90-07-6094tHWW Coag (PPP) [Time]31.4 yXmlbac32.1 - 36.5 second(s)[facility] Auto Coag INR Coag (PPP) [Relative time]1.0 {INR}Invalid Interpretation CodeFTMC Auto Coag PT Coag (PPP) [Time]11.4 sNormal9.4 - 12.5 second(s)[facility] Auto CoagHEMATOLOGY Ordered By: SYSTEM SYSTEM on 40-26-5253Tvyzblivh/100 WBC (Bld)0.5 %Normal0.0 - 2.0 %[facility] HemeAutoSSBasophils/Leukocytes Auto (Bld) [Pure # fraction]0.0 E9/L Normal0.0 - 0.2 E9/LFTMC HemeAutoSSEosinophils/100 WBC (Bld)1.0 %Normal0.0 - 8.0 %[facility] HemeAutoSSEosinophils/Leukocytes Auto (Bld) [Pure # fraction]0.1 E9/L Normal0.0 - 0.5 E9/LFTMC HemeAutoSSLymphocytes/100 WBC (Bld)19.5 %Lfoehs51.0 - 50.0 %[facility] HemeAutoSSLymphocytes/Leukocytes Auto (Bld) [Pure # fraction]1.4 E9/L Normal1.0 - 4.0 E9/LFTMC HemeAutoSSMonocytes/100 WBC (Bld)9.5 %Normal4.0 - 14.0 %[facility] HemeAutoSSMonocytes/Leukocytes Auto (Bld) [Pure # fraction]0.7 E9/LNormal 0.2 - 1.0 E9/LFTMC HemeAutoSSNeutrophils/100 WBC (Bld)69.5 %Qxgqgx07.0 - 75.0 % [facility] HemeAutoSSNeutrophils/Leukocytes Auto (Bld) [Pure # fraction]5.0 E9/LNormal 2.0 - 7.5 E9/LFTMC HemeAutoSSHEMATOLOGYOrdered By: Michael Wang on 81-70-8133Wvhrbnulmrs distribution width (RBC) [Ratio]16.0 %High10.9 - 14.2 % [facility] HemeAutoSSHematocrit (Bld) [Volume fraction]33.8 %Low34.0 - 46.0 %[facility] HemeAutoSSHemoglobin (Bld) [Mass/Vol]10.7 g/dLLow12.0 - 16.0 gm/dLFTMC HemeAutoSSMCH (RBC) [Entitic mass]25.4 pgLow27.0 - 34.0 pgFTMC HemeAutoSSMCHC (RBC) [Mass/Vol]31.5 g/jYTtaqly90.4 - 36.0 gm/dLFTMC HemeAutoSSMCV (RBC) [Entitic vol]80.7 zOVyjlao82.0 - 100.0 fLFTMC HemeAutoSSPlatelet mean volume (Bld) [Entitic vol]9.2 fLNormal6.4 - 10.8 fLFTMC HemeAutoSSPlatelets (Bld) [#/Vol]162.0 E9/YIrvdfy902.0 - 500.0 E9/LFTMC HemeAutoSSRBC (Bld) [#/Vol]4.2 E12/LLow4.3 - 5.9 E12/LFTMC HemeAutoSSWBC corrected for nucl RBC Auto (Bld) [#/Vol]7.2 E9/LNormal4.0 - 11.0 E9/LFTMC HemeAutoSSCHEMISTRYOrdered By: SYSTEM SYSTEM on 44-16-4157Nkbumqs [Mass/Vol]3.7 g/dLNormal3.3 - 5.0 gm/dLFTMC Remisol Albumin/Globulin [Mass ratio]1.1 {ratio}Normal1.1 - 2.2[facility] RemisolALP [Catalytic activity/Vol]69 [iU]/iSixano22 - 98 Int._Unit/LFTMC RemisolALT No additional P-5'-P [Catalytic activity/Vol]9 [iU]/dNormal6 - 46 Int._Unit/LFTMC RemisolAnion gap [Moles/Vol]14 mmol/LNormal6 - 16 mEq/LFTMC RemisolAST [Catalytic activity/Vol]16 [iU]/dNormal5 - 43 Int._Unit/LFTMC RemisolBilirubin [Mass/Vol]0.3 mg/dLNormal0.0 - 1.1 mg/dLFTMC RemisolCalcium [Mass/Vol]9.4 mg/dL Normal8.9 - 11.1 mg/dLFTMC RemisolChloride [Moles/Vol]101 mmol/FYaqovj479 - 111 mmol/LFTMC RemisolCO2 [Moles/Vol]26 mmol/NNjzowl01 - 31 mmol/LFTMC Remisol Creatinine [Mass/Vol]1.7 mg/dLHigh0.5 - 1.3 mg/dLFTMC RemisolGFR/1.73 sq M.predicted among blacks MDRD (S/P/Bld) [Vol rate/Area]36 mL/min/1.73 m2Low >=59mL/min/1.73 m2FT Chem SGFR/1.73 sq M.predicted among non-blacks MDRD (S/P/Bld) [Vol rate/Area]30 mL/min/1.73 m2Low>=59mL/min/1.73 m2FTMC Chem S Globulin (S) [Mass/Vol]3.4 g/dLNormal1.4 - 4.0 gm/dLFTMC RemisolGlucose [Mass/Vol]93 mg/yVPznalx89 - 199 mg/dLFTMC RemisolPotassium [Moles/Vol]5.8 mmol/LHigh3.5 - 5.3 mmol/LFTMC RemisolProtein [Mass/Vol]7.1 g/dLNormal6.0 - 7.8 gm/dLFTMC RemisolSodium [Moles/Vol]135 mmol/YKupkbm957 - 145 mmol/LFTMC Remisol Urea nitrogen [Mass/Vol]24 mg/dLHigh5 - 21 mg/dLFTMC RemisolUrea nitrogen/Creatinine [Mass ratio]14 mg/zjPmmwtn25 - 20FTMC RemisolHEMATOLOGY Ordered By: SYSTEM SYSTEM on 81-21-8926Bfvntqdyq/100 WBC (Bld)0.5 %Normal0.0 - 2.0 %[facility] HemeAutoSSBasophils/Leukocytes Auto (Bld) [Pure # fraction]0.0 E9/L Normal0.0 - 0.2 E9/LFTMC HemeAutoSSEosinophils/100 WBC (Bld)2.2 %Normal0.0 - 8.0 %[facility] HemeAutoSSEosinophils/Leukocytes Auto (Bld) [Pure # fraction]0.1 E9/L Normal0.0 - 0.5 E9/LFTMC HemeAutoSSLymphocytes/100 WBC (Bld)34.3 %Skarpl44.0 - 50.0 %[facility] HemeAutoSSLymphocytes/Leukocytes Auto (Bld) [Pure # fraction]2.3 E9/L Normal1.0 - 4.0 E9/LFTMC HemeAutoSSMonocytes/100 WBC (Bld)8.5 %Normal4.0 - 14.0 %[facility] HemeAutoSSMonocytes/Leukocytes Auto (Bld) [Pure # fraction]0.6 E9/LNormal 0.2 - 1.0 E9/LFTMC HemeAutoSSNeutrophils/100 WBC (Bld)54.5 %Cfofuq73.0 - 75.0 % [facility] HemeAutoSSNeutrophils/Leukocytes Auto (Bld) [Pure # fraction]3.6 E9/LNormal 2.0 - 7.5 E9/LFTMC HemeAutoSSHEMATOLOGYOrdered By: Evi De Oliveira on 07-29-2022 Erythrocyte distribution width (RBC) [Ratio]15.6 %High10.9 - 14.2 %[facility] HemeAutoSSHematocrit (Bld) [Volume fraction]34.3 %Upvhca64.0 - 46.0 %[facility] HemeAutoSSHemoglobin (Bld) [Mass/Vol]11.0 g/dLLow12.0 - 16.0 gm/dLFTMC HemeAutoSSMCH (RBC) [Entitic mass]25.7 pgLow27.0 - 34.0 pgFTMC HemeAutoSSMCHC (RBC) [Mass/Vol]32.1 g/uRIycshm62.4 - 36.0 gm/dLFTMC HemeAutoSSMCV (RBC) [Entitic vol]80.0 pLHxranv13.0 - 100.0 fLFTMC HemeAutoSSPlatelet mean volume (Bld) [Entitic vol]10.0 fLNormal6.4 - 10.8 fLFTMC HemeAutoSSPlatelets (Bld) [#/Vol]173.0 E9/BYhpxna284.0 - 500.0 E9/LFTMC HemeAutoSSRBC (Bld) [#/Vol]4.3 E12/LNormal4.3 - 5.9 E12/LFTMC HemeAutoSSWBC corrected for nucl RBC Auto (Bld) [#/Vol]6.6 E9/LNormal4.0 - 11.0 E9/LFTMC HemeAutoSSLon 03-15-2022L Specimen: [id number] Received: 03/15/22 Status: HARLEY Sandoval Num: [id number] Spec Type: Surgical Subm Dr: Chance Beavers MD Tissues: A Colon - Polyp (CECAL POLYP) B Colon - Polyp (HEPATIC FLEXURE POLYP) Procedures: HE Stain/4, Gross/Micro L4/2 Age/ Patient Sex Location Account Attending Physician Lencho Candelario 71/F [id number] Chance Beavers MD SPEC NUM: [id number] RECD: 03/15/22 STATUS: HARLEY SANDOVAL NUM: [id number] EDMOND: 03/15/22- [facility] DR: Chance Beavers MD ENTERED: 03/15/22 [facility] DR: SPEC TYPE: Surgical DEPT: S [...] submitted in one cassette labeled B1. Specimen: [id number] Received: 03/15/22 Status: HARLEY Sandoval Num: [id number] Spec Type: Surgical Subm Dr: Chance Beavers MD Tissues: A Colon - Polyp (CECAL POLYP) B Colon - Polyp (HEPATIC FLEXURE POLYP) Procedures: HE Stain/4, Gross/Micro L4/2 Patient: Lencho Candelario [id number] (Continued) Specimen: [id number] Received: 03/15/22 (Continued) Signed (signature on file) Beka Rizvi MD 03/16/22 1535 Specimen: [id number] Received: 03/15/22 Status: HARLEY Ngozi Num: [id number] Spec Type: Surgical Subm Dr: Chance Beavers MD Tissues: A Colon - Polyp (CECAL POLYP) B Colon - Polyp (HEPATIC FLEXURE POLYP) Procedures: HE Stain/4, Gross/Micro L4/2 Patient: Lencho Candelario [id number] (Continued) Specimen: [id number] Received: 03/15/22 (Continued) Microscopic Description A. Two glass slides with H E stained material have been examined. The microscopic findings support the above pathologic diagnosis. B. Two glass slides with H E stained material have been examined. The microscopic findings support the above pathologic diagnosis. CPT Codes 40815?2 Specimen: [id number] Received: 03/15/22 Status: HARLEY Ngozi Num: [id number] Spec Type: Surgical Subm Dr: Chance Beavers MD Tissues: A Colon - Polyp (CECAL POLYP) B Colon - Polyp (HEPATIC FLEXURE POLYP) Procedures: HE Stain/4, Gross/Micro L4/2 Patient: Lencho Candelario [id number] (Continued) Signed (signature on file) Beka Rizvi MD 03/16/22 1535 [facility] CenterCOVID-19 Antigenon 72-25-1592ZAUWO-19 AntigenHealthcare Worker?: N Reference Range: Negative Negative results, [...] developed and its performance characteristic determined by [facility] and validated at [facility]. This test has not been FDA cleared [...] for SARS Antigen by ISIDRO PERFORMED BY: [address] [address] [place] [address] PATHOLOGIST COGNOS REPORT DEVELOPER AAKASH GARCES M.D.[facility] Medical CenterComment on above: Performed By: #### COVID-19 GARLAND, SOFIANEG #### [place] [address] USACOVID-19 SOFIAOrdered By: Chance Beavers on 03-11-2022 SARS-CoV+SARS-CoV-2 (COVID-19) Ag IA.rapid Ql (Resp)NegativeNegativeFairfield Medical CenterComment on above:This is a duplicate [place] SARS Antigen (ISIDRO) result to be used for statistical tracking purpose only.No Panel InformationOrdered By: Chance Beavers on 02-87-4910BIMR Antigen (LFIA)[facility] Hospitalofia Ag Negativeon 29-36-8236Opgiw Ag NegativeNegative NormalNegKindred Hospital DaytonComment on above:Result Comment: This is a duplicate [place] SARS Antigen (ISIDRO) result to be used for statistical tracking purpose only. PERFORMED BY: [place] [address] PATHOLOGIST COGNOS REPORT DEVELOPER AAKASH GARCES M.D.Performed By: #### COVID-19 GARLAND, SOFIANEG #### [place] [address] USACHEMISTRYOrdered By: SYSTEM SYSTEM on 15-40-5672Tvlayvymk [Moles/Vol]4.8 mmol/LNormal3.5 - 5.3 mmol/LFTMC RemisolCHEMISTRYOrdered By: SYSTEM SYSTEM on 86-65-5575Zfqyfvj [Mass/Vol]3.7 g/dLNormal3.3 - 5.0 gm/dLFTMC RemisolAlbumin/Globulin [Mass ratio]1.2 {ratio}Normal1.1 - 2.2FT[facility] RemisolALP [Catalytic activity/Vol]77 [iU]/zYrrjqc26 - 98 Int._Unit/LFTMC RemisolALT No additional P-5'-P [Catalytic activity/Vol]10 [iU]/dNormal6 - 46 Int._Unit/LFTMC RemisolAnion gap [Moles/Vol]9 mmol/LNormal6 - 16 mEq/LFTMC RemisolAST [Catalytic activity/Vol]17 [iU]/dNormal5 - 43 Int._Unit/LFTMC RemisolBilirubin [Mass/Vol] 0.3 mg/dLNormal0.0 - 1.1 mg/dLFTMC RemisolCalcium [Mass/Vol]9.3 mg/dLNormal8.9 - 11.1 mg/dLFTMC RemisolChloride [Moles/Vol]105 mmol/UAmwywb538 - 111 mmol/LFTMC RemisolCO2 [Moles/Vol]28 mmol/VHnhgdm17 - 31 mmol/LFTMC RemisolCreatinine [Mass/Vol]1.6 mg/dLHigh0.5 - 1.3 mg/dLFTMC RemisolGFR/1.73 sq M.predicted among blacks MDRD (S/P/Bld) [Vol rate/Area]38 mL/min/1.73 m2Low>=59mL/min/1.73 m2FTMC Chem SGFR/1.73 sq M.predicted among non-blacks MDRD (S/P/Bld) [Vol rate/Area]32 mL/min/1.73 m2Low>=59mL/min/1.73 m2FTMC Chem SGlobulin (S) [Mass/Vol]3.1 g/dL Normal1.4 - 4.0 gm/dLFTMC RemisolGlucose [Mass/Vol]88 mg/xUXbulyr00 - 199 mg/dL FT RemisolPotassium [Moles/Vol]6.5 mmol/LInvalid Interpretation Code3.5 - 5.3 mmol/LFTMC RemisolProtein [Mass/Vol]6.8 g/dLNormal6.0 - 7.8 gm/dLFTMC Remisol Sodium [Moles/Vol]135 mmol/PSgtirk783 - 145 mmol/LFTMC RemisolUrea nitrogen [Mass/Vol]26 mg/dLHigh5 - 21 mg/dLFTMC RemisolUrea nitrogen/Creatinine [Mass ratio]16 mg/htKddfbj83 - 20FT[facility] RemisolHEMATOLOGYOrdered By: SYSTEM SYSTEM on 48-35-6855Jrvfpspvn/100 WBC (Bld)0.4 %Normal0.0 - 2.0 %[facility] HemeAutoSS Basophils/Leukocytes Auto (Bld) [Pure # fraction]0.0 E9/LNormal0.0 - 0.2 E9/L [facility] HemeAutoSSEosinophils/100 WBC (Bld)2.3 %Normal0.0 - 8.0 %[facility] HemeAutoSS Eosinophils/Leukocytes Auto (Bld) [Pure # fraction]0.2 E9/LNormal0.0 - 0.5 E9/L [facility] HemeAutoSSLymphocytes/100 WBC (Bld)34.4 %Czynnj88.0 - 50.0 %[facility] HemeAutoSS Lymphocytes/Leukocytes Auto (Bld) [Pure # fraction]2.3 E9/LNormal1.0 - 4.0 E9/L [facility] HemeAutoSSMonocytes/100 WBC (Bld)6.3 %Normal4.0 - 14.0 %[facility] HemeAutoSS Monocytes/Leukocytes Auto (Bld) [Pure # fraction]0.4 E9/LNormal0.2 - 1.0 E9/L [facility] HemeAutoSSNeutrophils/100 WBC (Bld)56.6 %Jvactn59.0 - 75.0 %[facility] HemeAutoSS Neutrophils/Leukocytes Auto (Bld) [Pure # fraction]3.8 E9/LNormal2.0 - 7.5 E9/L [facility] HemeAutoSSHEMATOLOGYOrdered By: Viky Roberts on [id number] distribution width (RBC) [Ratio]14.8 %High10.9 - 14.2 %[facility] HemeAutoSSHematocrit (Bld) [Volume fraction]34.9 %Ajfair76.0 - 46.0 %[facility] HemeAutoSSHemoglobin (Bld) [Mass/Vol]11.2 g/dLLow12.0 - 16.0 gm/dLFTMC HemeAutoSSMCH (RBC) [Entitic mass] 26.0 pgLow27.0 - 34.0 pgFTMC HemeAutoSSMCHC (RBC) [Mass/Vol]32.0 g/uAEybrly55.4 - 36.0 gm/dLFTMC HemeAutoSSMCV (RBC) [Entitic vol]81.2 vVJdfvog05.0 - 100.0 fL [facility] HemeAutoSSPlatelet mean volume (Bld) [Entitic vol]10.1 fLNormal6.4 - 10.8 [facility] HemeAutoSSPlatelets (Bld) [#/Vol]173.0 E9/KIqtjra649.0 - 500.0 E9/LFOKLAHOMA [facility] HemeAutoSSRBC (Bld) [#/Vol]4.3 E12/LNormal4.3 - 5.9 E12/LFC HemeAutoSSWBC corrected for nucl RBC Auto (Bld) [#/Vol]6.8 E9/LNormal4.0 - 11.0 E9/LFOKLAHOMA [facility] [place] HemeAutoSSCOVID-19 Antigenon [id number] AntigenHealthcare Worker?: N Reference Range: Negative Negative results, [...] developed and its performance characteristic determined by [facility] and validated at [facility]. This test has not been FDA cleared [...] for SARS Antigen by [employer] PERFORMED BY: [place] [address] PATHOLOGIST [employer] REPORT DEVELOPER AAKASH GARCES M.D.[facility] Regional Medical CenterComment on above: Performed By: #### COVID-19 [place]AR[place], SOFIANEG #### [facility] [address] [place] [address] USACOVID-19 SOFIAOrdered By: Darryl Soto on 01-07-2022 SARS-CoV+SARS-CoV-2 (COVID-19) Ag IA.rapid Ql (Resp)NegativeNegativeFairfield Medical CenterComment on above:This is a duplicate [place] SARS Antigen ([facility]) result to be used for statistical tracking purpose only.No Panel InformationOrdered By: Darryl Soto on [id number] Antigen (LFIA)[facility] Memorial Hospitalofia Ag Negativeon 11-19-1262Jfeus Ag NegativeNegative NormalNegKindred Hospital DaytonComment on above:Result Comment: This is a duplicate [place] SARS Antigen (ISIDRO) result to be used for statistical tracking purpose only. PERFORMED BY: [place] [address] PATHOLOGIST COGNOS REPORT DEVELOPER AAKASH GARCES M.D.Performed By: #### COVID-19 GARLAND, SOFIANEG #### [facility] [address] [place] [address] USARENAL FUNCTION PANELon [id number] [Mass/Vol]3.3 g/dLCritically low3.4-5.0The Wilson HealthComment on above:Performed By: #### RENAL #### [facility] [address] [address] [address] Agustín OdellCalcium [Mass/Vol]9.1 mg/dLNormal8.5-10.1[facility] Comment on above:Performed By: #### RENAL #### [facility] [address] [address] [address] Agusítn OdellChloride [Moles/Vol]96 mmol/LCritically vrr83-849Gqv Wilson HealthComment on above:Performed By: #### RENAL #### [facility] [address] [address] [address] Agustín OdellCO2 [Moles/Vol]28.4 mmol/XKkgsbd05.0-32.0[facility] Comment on above:Performed By: #### RENAL #### [facility] [address] [address] [address] Agustín OdellCreatinine [Mass/Vol]1.58 mg/dLCritically high0.55-1.02The Wilson HealthComment on above:Performed By: #### RENAL #### [facility] [address] [place] [address] Dr. Agustín TorresGFR-AF YWLIYJDV33 mL/min/1.18y1Yosimwbwxa low>=60The Wilson HealthComment on above:Performed By: #### RENAL #### [facility] [address] [place] [address] Dr. Agustín TorresGFR-NON AF TSNRUNIC19 mL/min/1.15j6Jusnnzdlql low>=60The Wilson HealthComment on above:Performed By: #### RENAL #### [facility] [address] [place] [address] Dr. Agustín OdellGlucose [Mass/Vol]100 mg/mJWitodq42-721WnmSamaritan North Health Center Comment on above:Performed By: #### RENAL #### [facility] [address] [place] [address] Dr. Agustín OdellPhosphate [Mass/Vol]4.2 mg/dLNormal2.6-4.7[facility] Comment on above:Performed By: #### RENAL #### [facility] [address] [address] [address] Agustín OdellPotassium [Moles/Vol]5.3 mmol/LCritically high3.5-5.1The [facility] Campusment on above:Performed By: #### RENAL #### [facility] [address] [place] [address] Dr. Agustín OdellSodium [Moles/Vol]131 mmol/LCritically gzd559-375Pkx Wilson HealthComment on above:Performed By: #### RENAL #### [facility] [address] [address] [address] Agustín Perkins nitrogen [Mass/Vol]19.0 mg/dLCritically high7.0-18.0[facility] CenterComment on above:Performed By: #### RENAL #### [facility] [address] [address] [address] Agustín Pepe RANDOMon 83-78-0552Zdpghfdrp Ql (U)NegativeNormalNEGATIVESamaritan North Health CenterComment on above:Performed By: #### UA #### [facility] [address] [place] [address] Dr. Agustín OdellClarity (U)CLEARNormalCLEARSamaritan North Health CenterComment on above: Performed By: #### UA #### [facility] [address] [place] [address] Dr. Agustín Keenanlor (U)LT. YELLOWNormalYCoshocton Regional Medical CenterComment on above:Performed By: #### UA #### [facility] [address] [place] [address] Dr. Agustín OdellGlucose Ql (U)NegativeNormalNEGATIVESamaritan North Health CenterComment on above:Performed By: #### UA #### [facility] [address] [place] [address] Dr. Agustín OdellHemoglobin Ql (U)MODERATEAbnormalNEGSheltering Arms Hospital on above:Performed By: #### UA #### [facility] [address] [place] [address] Dr. Agustín OdellKetones Ql (U)NegativeNormalNEGATIVESamaritan North Health CenterComment on above:Performed By: #### UA #### [facility] [address] [place] [address] Dr. Agustín OdellLEUKOCYTESLARGEAbnormalNEGATIVESamaritan North Health CenterComment on above:Performed By: #### UA #### [facility] [address] [place] [address] Dr. Agustín Yeager Ql (U)NegativeNormalNEGATIVEThe Wilson HealthComment on above:Performed By: #### UA #### [facility] [address] [place] [address] Dr. Agustín OdellpH (U)6.0 [pH]Normal5-9The Wilson HealthComment on above: Performed By: #### UA #### [facility] [address] [place] [address] Dr. Agustín OdellSPEC GRAVITY1.677Ydrbkq8.005-<=1.025The Wilson HealthComment on above:Performed By: #### UA #### [facility] [address] [place] [address] Dr. Agustín Pepe EJYCIUW72 mg/dlAbnormalNEGATIVE/ TRACEThe [facility] Comment on above:Performed By: #### UA #### [facility] [address] [place] [address] Dr. Agustín Lee Qn (U)0.2 {Pop'U}/dLNormal0.2 - 1.0The Wilson HealthComment on above:Performed By: #### UA #### [facility] [address] [place] [address] Dr. Agustín Mondragon T PROTEIN CREAT RATIOon 82-32-6574Dxvukoh (U) [Mass/Vol] 44.2 mg/dLCritically high<=12.0The Wilson HealthComment on above:Performed By: #### URTPCR #### [facility] [address] [place] [address] Dr. Agustín Rider PROT CREAT RAT0.87NormalThe Wilson HealthComment on above: Performed By: #### URTPCR #### [facility] [address] [place] [address] Dr. Agustín Mondragon CREAT50.86 mg/vUZkvzne36.00-300.00[facility] Comment on above:Performed By: #### URTPCR #### [facility] [address] [address] [address] Agustín OdellXR HIP 2-3 VW W PELVIS RIGHTon 05-35-8909NL HIP 2-3 VW W PELVIS RIGHTHISTORY: Hip fracture. TECHNIQUE: Two views of the [...] Signed by: Anthony Lomas MD 04/05/21 Final resultNormMercy Health Fairfield HospitalXR HIP 2-3 VW W PELVIS RIGHTOrdered By: Eugene Michelle on 71-41-3561Imwbeb postoperative changes with continued near complete healing of an intratrochanteric hip fracture.Conmio Phone: HISTORY: Hip fracture. TECHNIQUE: Two views of the right hip were obtained. COMPARISON: 03/06/2021. FINDINGS: There has been open reduction internal fixation of an intratrochanteric hip fracture with an intramedullary jerry and femoral neck screw. The position is satisfactory. There is continued healing of the fracture with the fracture plane still barely visible. There is no complication.Conmio Phone: e, [facility] Incoming Radiant Results From Anacomp/Transactiv - 04/05/2021 2:56 PM EDT HISTORY: Hip [...] complete healing of an intratrochanteric hip fracture. Conmio Phone: [facility]fake company 2.0 Phone: XR HIP 2-3 VW W PELVIS RIGHTon [id number] HIP 2-3 VW W PELVIS RIGHTEXAM: XR HIP 2-3 VW W PELVIS RIGHT [...] by: Adalid Alexander Jr., MD 03/06/21 Final resultNoZanesville City HospitalXR HIP 2-3 VW W PELVIS RIGHTon 76-80-3875RP HIP 2-3 VW W PELVIS RIGHTEXAM: XR HIP 2-3 VW W PELVIS RIGHT. [...] by: Adalid Alexander Jr., MD 01/23/21 Final resultSt. Mary's Medical Center, Ironton CampusXR HIP 2-3 VW W PELVIS RIGHTOrdered By: Eugene Michelle on 78-31-2459Glyqbkuo alignment internally fixed right hip fracture.[employer] Work Phone: eXAM: XR HIP 2-3 VW W PELVIS RIGHT. HISTORY: S72.144A. 70-year-old female, follow-up right hip nail. COMPARISON: Preop pelvis 01/08/2021, intraoperative spot films 01/09/2021. TECHNIQUE: AP pelvis and 2 views right hip to include the intramedullary jerry. FINDINGS: The nail in the femoral head and neckand the long intramedullary jerry in the femur fixed distally by a single screw in anatomic alignment. Avulsion lesser trochanter unchanged. Overlying skin jose luis.Conmio Phone: emichael, [place] Incoming Radiant Results From Anacomp/Transactiv - 01/23/2021 11:29 AM EDT EXAM: XR [...] Anatomic alignment internally fixed right hip fracture. Conmio Phone: [facility]fake [facility] 2.0 Phone: cult,Bloodon [id number],BloodSpecimen Description .BLOOD Special Requests 10 Culture NO GROWTH 6 DAYS Report Status FINAL 01/17/2021NoZanesville City HospitalComment on above: Performed By: #### CDP, BMPX #### [facility] [address] [place] [address] Testing Machine Operator: Darryl Granger [facility] MIAMIADITI-19, RapidOrdered By: Aurelio Saldana on 04-02-2719JWUQ-CoV-2 (COVID-19) RNA MARTIN+probe Ql (Unsp spec)Not detectedNot [facility] HospitalKu [facility] Phone: comment on above: Rapid NAAT: The specimen is [...] management decisions. Fact sheet for Healthcare Providers: https://www.fda.gov/media/560392/download Fact sheet for Patients: https://www.fda.gov/media/198080/download Methodology: Isothermal Nucleic Acid Amplification Specimen Description.NASOPHARYNGEAL SWABChillicothe Va Medical Centerfake company 2.0 Phone: [facility]fake company 2.0 Phone: Hemoglobin and hematocrit, bloodOrdered By: Aurelio Saldana on 77-94-6985Fumwmxcvlj (Bld) [Volume fraction]25.7 %Low36 - 46 %[facility] [employer] Phone: Hemoglobin.gastrointestinal spec 1 Ql (Stl)8.3 g/dLLow 12.0 - 16.0 g/dLChillicothe Va Medical Centerfake company 2.0 Phone: Interpretation and review of laboratory results AbnormalChillicothe Va Medical Centerfake company 2.0 Phone: [facility] Centerfake [facility] 2.0 Phone: Hgb/Hcton 99-01-2306Nrwsyjidtx (Bld) [Volume fraction] 25.7 %Lmq60-38HlmpgOhio State Harding HospitalComment on above:Performed By: #### HH #### [facility] [address] [place] [address] Testing Machine Operator: Darryl Granger MDHemoglobin (Bld) [Mass/Vol]8.3 g/dLLow12.0-16.0 [facility] HospitalComment on above:Performed By: #### HH #### [facility] [address] [place] [address] Testing Machine Operator: CRISTINA Park-CoV-2on 12-77-9120XNIU-CoV-2 (COVID-19) RNA MARTIN+probe Ql (Unsp spec)Not detectedNormalNOTDEClermont County HospitalComment on above:Result Comment: Rapid NAAT: The specimen is NEGATIVE [...] management decisions. Fact sheet for Healthcare Providers: https://www.fda.gov/media/216116/download Fact sheet for Patients: https://www.fda.gov/media/883991/download Methodology: Isothermal Nucleic Acid AmplificationPerformed By: #### CDP, BMPX #### [facility] [address] [place] [address] Testing Machine Operator: Erna Park Metabolic PanelOrdered By: Aurelio Saldana on 87-10-0592Ihaog gap [Moles/Vol]3 mmol/LLow9 - 17 mmol/LMercy Housing.com Work Phone: calcium [Mass/Vol]8.3 mg/dLLow8.6 - 10.4 mg/dLMercy Health Fairfield Hospital Housing.com Work Phone: chloride [Moles/Vol]101 mmol/L98 - 107 mmol/LMercy Housing.com Work Phone: cO2 [Moles/Vol]31 mmol/L20 - 31 mmol/LMTáximo Work Phone: creatinine [Mass/Vol]1.11 mg/dLHigh0.50 - 0.90 mg/dL [facility] [employer] Phone: GFR Ionqfgyx36 mL/minLow>60[facility] Centercy Health Work Phone: GFR Non- Uectizft13 mL/minLow>60[facility] [employer] Phone: GFR/1.73 sq M.predicted MDRD (S/P/Bld) [Vol rate/Area] [facility] HospitalLaunch[facility] Phone: comment on above:Average GFR for 70 or more years old: 75 mL/min/1.73sq m Chronic Kidney Disease: <60 mL/min/1.73sq m Kidney failure: <15 mL/min/1.73sq m eGFR calculated using average adult body mass. Additional eGFR calculator available at: http://www.Tipjoy/multiple_crcl_2012.htm GFR/1.73 sq M.predicted MDRD (S/P/Bld) [Vol rate/Area]NOT REPORTEDMercy Health Fairfield Hospital [employer] Phone: Glucose [Mass/Vol]104 mg/nAHlhw83 - 99 mg/dLMercy Health Fairfield Hospital Q[employer] Power Phone: Interpretation and review of laboratory results AbnormalMercy Health Fairfield Hospital [employer] Phone: potassium [Moles/Vol]4.8 mmol/L3.7 - 5.3 mmol/LMparkwood hospitaly QM Power Phone: sodium [Moles/Vol]135 mmol/L135 - 144 mmol/LMparkwood hospitaly QM Power Phone: Urea nitrogen (BldV) [Mass/Vol]16 mg/dL8 - 23 mg/dL [facility] [employer] Phone: Urea nitrogen/Creatinine (Bld) [Mass ratio]14[facility] [employer] Phone: [facility]fake company 2.0 Phone: basic Metabolic Profon 01-13-2021(cont.)NormalOhio State Harding HospitalComment on above:Result Comment: Average GFR for 70 or more years old: 75 mL/min/1.73sq m Chronic Kidney Disease: <60 mL/min/1.73sq m Kidney failure: <15 mL/min/1.73sq m eGFR calculated using average adult body mass. Additional eGFR calculator available at: http://www.[employer].com/multiple_crcl_2012.htmPerformed By: #### CDP, BMP #### [facility] [address] [id number] Testing Machine Operator: Darryl Granger MDAnion gap [Moles/Vol]3 mmol/LLow9-17[facility] HospitalComment on above:Performed By: #### CDP, BMP #### [facility] [address] [place] [address] Testing Machine Operator: Darryl Granger MDBUN/CRE Fsjsl58Ypoyqj0-02[facility] Comment on above:Performed By: #### ESA, BMP #### [facility] [address] [address] Testing Machine Operator: FRANKIE Parkalcium [Mass/Vol]8.3 mg/dLLow8.6-10.4[facility] Hard[facility] HospitalComment on above:Performed By: #### CDP, BMP #### [facility] [address] [address] Testing Machine Operator: FRANKIE Parkhloride [Moles/Vol]101 mmol/BPfsazy09-710EncpxOhio State Harding HospitalComment on above:Performed By: #### CDP, BMP #### [facility] [address] [place] [address] Testing Machine Operator: Darryl Granger MDCO2 [Moles/Vol]31 mmol/PHjrveb21-42AeohuOhio State Harding HospitalComment on above:Performed By: #### CDP, BMP #### [facility] [address] [address] Testing Machine Operator: FRANKIE Parkreatinine [Mass/Vol]1.11 mg/dLHigh0.50-0.90[facility] Hard[facility] HospitalComment on above:Performed By: #### CDP, BMP #### [facility] [address] [place] [address] Testing Machine Operator: Darryl Granger MDGFR, Amer59 mL/minLow>60[facility] HospitalComment on above:Performed By: #### CDP, BMP #### [facility] [address] [place] [address] Testing Machine Operator: Darryl Granger MDGFR,non Amer48 mL/minLow>60[facility] HospitalComment on above:Performed By: #### CDP, BMP #### [facility] [address] [address] Testing Machine Operator: Darryl Granger MDGlucose [Mass/Vol]104 mg/yTSgem62-19BzrqtSt. Mary's Medical CenterComment on above:Performed By: #### CDP, BMP #### [facility] [address] [address] Testing Machine Operator: ABDIEL Parkotassium [Moles/Vol]4.8 mmol/LNormal3.7-5.3MSt. Mary's Medical CenterComment on above:Performed By: #### CDP, BMP #### [facility] [address] [place] [address] Testing Machine Operator: JANICE Parkodium [Moles/Vol]135 mmol/STvefvd764-977MrvcbOhio State Harding HospitalComment on above:Performed By: #### CDP, BMP #### [facility] [address] [place] [address] Testing Machine Operator: Darryl Granger MDUrea nitrogen [Mass/Vol]16 mg/dLNormal8-23[facility] HospitalComment on above:Performed By: #### CDP, BMP #### [facility] [address] [place] [address] Testing Machine Operator: JANICE Parktaging:NOT REPORTEDNormalOhio State Harding Hospital Comment on above:Performed By: #### CDP, BMP #### [facility] [address] [place] [address] Testing Machine Operator: Darryl Granger [facility] MIAMIDINESH Auto DifferentialOrdered By: Aurelio Saldana on 57-06-6946Lxhfurjw Eos #0.10[facility] Centerfake company 2.0 Phone: absolute Immature GranulocyteNOT REPORTEDChillicothe Va Medical Centerfake company 2.0 Phone: absolute Lymph #1.10[facility] Centerfake company 2.0 Phone: absolute Pleasants #0.70[facility] Centerfake company 2.0 Phone: basophils (Bld) [#/Vol]0.00 10*3/uLChillicothe Va Medical Centerfake company 2.0 Phone: basophils/100 WBC (Bld)0 %0 - 2 %Conmio Phone: differential TypeYESMercLaunchLab Phone: eosinophils/100 WBC (Bld)1 %0 - 5 %Conmio Phone: Hematocrit (Bld) [Volume fraction]25.3 %Low36 - 46 % Conmio Phone: Hemoglobin.gastrointestinal spec 1 Ql (Stl)8.3 g/dLLow 12.0 - 16.0 g/dLChillicothe Va Medical Centerfake company 2.0 Phone: Immature GranulocytesNOT REPORTED0 %Conmio Phone: Interpretation and review of laboratory results AbnormalChillicothe Va Medical Centerfake company 2.0 Phone: lymphocytes/100 WBC (Bld)13 %Low15 - 40 %Conmio Phone: MCH (RBC) [Entitic mass]27.4 pg26 - 34 pgChillicothe Va Medical Centerfake company 2.0 Phone: MCHC (RBC) [Mass/Vol]32.9 g/dL31 - 37 g/dLChillicothe Va Medical Centerfake company 2.0 Phone: MCV (RBC) [Entitic vol]83.5 fL80 - 100 fLConmio Phone: [phone]/100 WBC (Bld)9 %High4 - 8 %Conmio Phone: NRBC AutomatedNOT REPORTEDper 100 WBCChillicothe Va Medical Centerfake company 2.0 Phone: platelet distribution width (Bld) [Ratio]18.7 %High 12.1 - 15.2 %Conmio Phone: Elatelet EstimateNOT REPORTEDChillicothe Va Medical Centerfake company 2.0 Phone: Platelet mean volume (Bld) [Entitic vol]NOT REPORTED 6.0 - 12.0 TNConmio Phone: Platelets (Bld) [#/Vol]124 10*3/uLLowChillicothe Va Medical Centerfake company 2.0 Phone: RBC (Bld) [#/Vol]3.03 10*6/uLLow4.0 - 5.2 m/GetWellNetwork, [employer].[facility] Centerfake company 2.0 Phone: RBC (Bld) [#/Vol]NOT REPORTEDChillicothe Va Medical Centerfake company 2.0 Phone: Segmented neutrophils/100 WBC (Bld)77 %High47 - 75 % Conmio Phone: Segs Absolute6.60[facility] Centerfake company 2.0 Phone: WBC (Bld) [#/Vol]8.4 10*3/uLConmio Phone: [phone] (Bld) [#/Vol]NOT REPORTEDChillicothe Va Medical Centerfake company 2.0 Phone: [facility] Centerfake company 2.0 Phone: CBC with Diffon 98-65-7995Lvr. Basophil0.00 k/uLNormal 0.0-0.2Mer[facility] Loudon HospitalComment on above:Performed By: #### CDP, BMP #### [facility] [address] [address] Testing Machine Operator: [place] Park.Neutrophil (Seg)6.60 k/uLNormal2.5-7.0[facility] HospitalComment on above:Performed By: #### CDP, BMP #### [facility] [address] [place] [address] Testing Machine Operator: James Park Diff PerformedYESNoZanesville City Hospital Comment on above:Performed By: #### CDP, BMP #### [facility] [address] [place] [address] Testing Machine Operator: Darryl Granger MDBasophils/100 WBC (Bld)0 %Normal0-2MSt. Mary's Medical CenterComment on above:Performed By: #### CDP, BMP #### [facility] [address] [place] [address] Testing Machine Operator: Darryl Granger MDEosinophils (Bld) [#/Vol]0.10 10*3/uLNormal0.0-0.4 [facility] HospitalComment on above:Performed By: #### CDP, BMP #### [facility] [address] [place] [address] Testing Machine Operator: LISE Parkosinophils/100 WBC (Bld)1 %Normal0-5[facility] HospitalComment on above:Performed By: #### CDP, BMP #### [facility] [address] [place] [address] Testing Machine Operator: Darryl Granger MDErythrocyte distribution width (RBC) [Ratio]18.7 % High12.1-15.2MSt. Mary's Medical CenterComment on above:Performed By: #### CDP, BMP #### [facility] [address] [place] [address] Testing Machine Operator: Darryl Granger MDHematocrit (Bld) [Volume fraction]25.3 %Vbr66-58 [facility] - Cantonment on above:Performed By: #### CDP, BMP #### [facility] [address] [place] [address] Testing Machine Operator: Darryl Granger MDHemoglobin (Bld) [Mass/Vol]8.3 g/dLLow12.0-16.0 [facility] on above:Performed By: #### CDP, BMP #### [facility] [address] [place] [address] Testing Machine Operator: Darryl Granger MDLymphocytes (Bld) [#/Vol]1.10 10*3/uLNormal1.0-4.8 [facility] on above:Performed By: #### CDP, BMP #### [facility] [address] [place] [address] Testing Machine Operator: Constanza Parkmphocytes/100 WBC (Bld)13 %Ave68-46YphljSt. Elizabeth Hospital on above:Performed By: #### CDP, BMP #### [facility] [address] [address] Testing Machine Operator: KALYAN ParkCH (RBC) [Entitic mass]27.4 joHffpcz14-62NhuiqOhio State Harding HospitalComment on above:Performed By: #### CDP, BMP #### [facility] [address] [place] [address] Testing Machine Operator: ALANA ParkC (RBC) [Mass/Vol]32.9 g/mRGdhigv33-35TdelyOhio State Harding HospitalComment on above:Performed By: #### CDP, BMP #### [facility] [address] [address] Testing Machine Operator: KALYAN ParkCV (RBC) [Entitic vol]83.5 oMHnysax89-541RijyvOhio State Harding HospitalComment on above:Performed By: #### CDP, BMP #### [facility] [address] [place] [address] Testing Machine Operator: KALYAN Parkonocytes (Bld) [#/Vol]0.70 10*3/uLNormal0.0-1.0 [facility] HospitalCommclaren bay special care hospital on above:Performed By: #### CDP, BMP #### [facility] [address] [place] [address] Testing Machine Operator: KALYAN Parkonocytes/100 WBC (Bld)9 %High4-8[facility] HospitalComment on above:Performed By: #### CDP, BMP #### [facility] [address] [place] [address] Testing Machine Operator: Alexandria Parkophil (Seg)77 %Ydkh57-16AytklOhio State Harding HospitalComment on above:Performed By: #### ESA, BMP #### [facility] [address] [place] [address] Testing Machine Operator: Natacha Parktelets (Bld) [#/Vol]124 10*3/sTXlr108-540UorocOhio State Harding HospitalComment on above:Performed By: #### CDP, BMP #### [facility] [address] [place] [address] Testing Machine Operator: NE ParkBC (Bld) [#/Vol]3.03 10*6/uLLow4.0-5.2MSt. Mary's Medical CenterComment on above:Performed By: #### CDP, BMP #### [facility] [address] [place] [address] Testing Machine Operator: SHERIF ParkBC (Bld) [#/Vol]8.4 10*3/uLNormal3.5-11.0[facility] Hard[facility] HospitalComment on above:Performed By: #### CDP, BMP #### [facility] [address] [place], [place] [address] Testing Machine Operator: MDAbs. VivianImm.GranulocyteNOT REPORTEDNormal0.00-0.30 [facility] HospitalComment on above:Performed By: #### CDP, BMP #### [facility] [address] [address] Testing Machine Operator: Tami Park GranulocyteNOT ONYFTWBOSlnchw1JbviwOhio State Harding HospitalComment on above:Performed By: #### CDP, BMP #### [facility] [address] [address] Testing Machine Operator: KALYAN ParkPVNOT REPORTEDNormal6.0-12.0[facility] HospitalComment on above:Performed By: #### CDP, BMP #### [facility] [address] [place], [place] [address] Testing Machine Operator: EUGENIA Park AutomatedNOT REPORTEDNormalOhio State Harding HospitalComment on above:Performed By: #### CDP, BMP #### [facility] [address] [place], [place] [address] Testing Machine Operator: Raymond Park EstimateNOT REPORTEDNormalOhio State Harding HospitalComment on above:Performed By: #### CDP, BMP #### [facility] [address] [place], [place] [phone] Testing Machine Operator: YAYA Park morphology finding Nom (Bld)NOT REPORTEDNormal [facility] HospitalComment on above:Performed By: #### CDP, BMP #### [facility] [address] [place], [place] [address] Testing Machine Operator: ANDER Park MorphologyNOT REPORTEDNormalOhio State Harding HospitalComment on above:Performed By: #### CDP, BMP #### [facility] [address] [place] [address] Testing Machine Operator: Erna Park Metabolic PanelOrdered By: Aurelio Saldana on 72-30-6871Qklan gap [Moles/Vol]5 mmol/LLow9 - 17 mmol/LMcity hospital Housing.com Work Phone: calcium [Mass/Vol]8.2 mg/dLLow8.6 - 10.4 mg/dLMercy Health Fairfield Hospital Q[employer] Power Phone: chloride [Moles/Vol]104 mmol/L98 - 107 mmol/LMcity hospital Q[employer] Power Phone: cO2 [Moles/Vol]26 mmol/L20 - 31 mmol/LMcity hospital Housing.com Work Phone: creatinine [Mass/Vol]1.18 mg/dLHigh0.50 - 0.90 mg/dL [facility] [employer] Phone: GFR Mkpdqhma34 mL/minLow>60[facility] Centerfake company 2.0 Phone: GFR Non- Rpxdyqeu89 mL/minLow>60[facility]field [facility] [employer] Phone: GFR/1.73 sq M.predicted MDRD (S/P/Bld) [Vol rate/Area] [facility]: comment on above:Average GFR for 70 or more years old: 75 mL/min/1.73sq m Chronic Kidney Disease: <60 mL/min/1.73sq m Kidney failure: <15 mL/min/1.73sq m eGFR calculated using average adult body mass. Additional eGFR calculator available at: http://www.Tipjoy/multiple_crcl_2012.htm GFR/1.73 sq M.predicted MDRD (S/P/Bld) [Vol rate/Area]NOT REPORTEDChillicothe Va Medical Centerfake company 2.0 Phone: Glucose [Mass/Vol]97 mg/dL70 - 99 mg/dLMercy Health Fairfield Hospital QM Power Phone: Interpretation and review of laboratory results AbnormalMercy Health Fairfield Hospital QM Power Phone: potassium [Moles/Vol]4.6 mmol/L3.7 - 5.3 mmol/LMSumma Health W[facility] Work Phone: sodium [Moles/Vol]135 mmol/L135 - 144 mmol/LMparkwood hospitaly [facility] Work Phone: Urea nitrogen (BldV) [Mass/Vol]18 mg/dL8 - 23 mg/dL [facility] HeySpace Phone: Urea nitrogen/Creatinine (Bld) [Mass ratio]15[facility] QM Power Phone: [facility] QM Power Phone: basic Metabolic Profon 01-12-2021(cont.)NormalOhio State Harding HospitalComment on above:Result Comment: Average GFR for 70 or more years old: 75 mL/min/1.73sq m Chronic Kidney Disease: <60 mL/min/1.73sq m Kidney failure: <15 mL/min/1.73sq m eGFR calculated using average adult body mass. Additional eGFR calculator available at: http://www.Tipjoy/multiple_crcl_2012.htmPerformed By: #### ESA, BMPX #### [facility] [address] [place] [address] Testing Machine Operator: Rhoda [place] gap [Moles/Vol]5 mmol/LLow9-17Ohio State Harding HospitalComment on above:Performed By: #### ESA, BMPX #### [facility] [address] [place] [address] Testing Machine Operator: Darryl Granger MDBUN/CRE Uedmu83Cnemwf2-33Zqkdd [facility] Comment on above:Performed By: #### ESA, BMPX #### [facility] [address] [place] [address] Testing Machine Operator: FRANKIE Parkalcium [Mass/Vol]8.2 mg/dLLow8.6-10.4Ohio State Harding HospitalComment on above:Performed By: #### CDP, BMPX #### [facility] [address] [place] [address] Testing Machine Operator: FRANKIE Parkhloride [Moles/Vol]104 mmol/EHaswhk75-220GcdvyOhio State Harding HospitalComment on above:Performed By: #### CDP, BMPX #### [facility] [address] [place] [address] Testing Machine Operator: FRANKIE ParkO2 [Moles/Vol]26 mmol/LKhdnzy48-78FreztOhio State Harding HospitalComment on above:Performed By: #### CDP, BMPX #### [facility] [address] [place] [address] Testing Machine Operator: FRANKIE Parkreatinine [Mass/Vol]1.18 mg/dLHigh0.50-0.90Ohio State Harding HospitalComment on above:Performed By: #### CDP, BMPX #### [facility] [address] [place] [address] Testing Machine Operator: Darryl Granger MDGFR, Amer55 mL/minLow>60Ohio State Harding HospitalComment on above:Performed By: #### CDP, BMPX #### [facility] [address] [place] [address] Testing Machine Operator: Darryl Granger MDGFR,non Amer45 mL/minLow>60[facility] Harding HospitalComment on above:Performed By: #### CDP, BMPX #### [facility] [address] [place] [address] Testing Machine Operator: Darryl Granger MDGlucose [Mass/Vol]97 mg/aPXkwoba08-53DpmkrSt. Mary's Medical CenterComment on above:Performed By: #### CDP, BMPX #### [facility] [address] [place] [address] Testing Machine Operator: Darryl Granger MDPotassium [Moles/Vol]4.6 mmol/LNormal3.7-5.3MSt. Mary's Medical CenterComment on above:Performed By: #### CDP, BMPX #### [facility] [address] [place] [address] Testing Machine Operator: Darryl Granger MDSodium [Moles/Vol]135 mmol/MXfkvod526-072ZtcaaOhio State Harding HospitalComment on above:Performed By: #### CDP, BMPX #### [facility] [address] [place] [address] Testing Machine Operator: Darryl Granger MDUrea nitrogen [Mass/Vol]18 mg/dLNormal8-23Ohio State Harding HospitalComment on above:Performed By: #### CDP, BMPX #### [facility] [address] [place] [address] Testing Machine Operator: JANICE Parktaging:NOT REPORTEDNoZanesville City Hospital Comment on above:Performed By: #### CDP, BMPX #### [facility] [address] [place] [address] Testing Machine Operator: DANI Park Auto DifferentialOrdered By: Aurelio Saldana on [id number] Eos #0.00[facility] [employer] Work Phone: absolute Immature GranulocyteNOT REPORTEDMer [employer] Work Phone: absolute Lymph #1.20[facility] [employer] Work Phone: absolute Pleasants #0.90[facility] [employer] Work Phone: basophils (Bld) [#/Vol]0.00 10*3/uLMerfake company 2.0 Phone: basophils/100 WBC (Bld)0 %0 - 2 %Conmio Phone: differential TypeYESMercLaunchLab Phone: eosinophils/100 WBC (Bld)0 %0 - 5 %Conmio Phone: Hematocrit (Bld) [Volume fraction]26.5 %Low36 - 46 % Conmio Phone: Hemoglobin.gastrointestinal spec 1 Ql (Stl)8.8 g/dLLow 12.0 - 16.0 g/dLChillicothe Va Medical Centerfake company 2.0 Phone: Immature GranulocytesNOT REPORTED0 %Conmio Phone: Interpretation and review of laboratory results AbnormalChillicothe Va Medical Centerfake company 2.0 Phone: lymphocytes/100 WBC (Bld)11 %Low15 - 40 %Conmio Phone: MCH (RBC) [Entitic mass]27.3 pg26 - 34 pgChillicothe Va Medical Centerfake company 2.0 Phone: MCHC (RBC) [Mass/Vol]33.2 g/dL31 - 37 g/dLChillicothe Va Medical Centerfake company 2.0 Phone: MCV (RBC) [Entitic vol]82.2 fL80 - 100 fLChillicothe Va Medical Centerfake company 2.0 Phone: Monocytes/100 WBC (Bld)8 %4 - 8 %Conmio Phone: NRBC AutomatedNOT REPORTEDper 100 WBCChillicothe Va Medical Centerfake company 2.0 Phone: platelet distribution width (Bld) [Ratio]18.7 %High 12.1 - 15.2 %Conmio Phone: platelet EstimateNOT REPORTEDChillicothe Va Medical Centerfake company 2.0 Phone: platelet mean volume (Bld) [Entitic vol]NOT REPORTED 6.0 - 12.0 fLChillicothe Va Medical Centerfake company 2.0 Phone: Slatelets (Bld) [#/Vol]114 10*3/uLLowChillicothe Va Medical Centerfake company 2.0 Phone: RBC (Bld) [#/Vol]3.23 10*6/uLLow4.0 - 5.2 m/[place]fake company 2.0 Phone: RBC (Bld) [#/Vol]NOT REPORTEDChillicothe Va Medical Centerfake company 2.0 Phone: segmented neutrophils/100 WBC (Bld)81 %High47 - 75 % [facility] Phone: Cegs Absolute8.90HighChillicothe Va Medical Centerfake company 2.0 Phone: WBC (Bld) [#/Vol]10.9 10*3/[place]fake company 2.0 Phone: WBC (Bld) [#/Vol]NOT REPORTEDChillicothe Va Medical Centerfake company 2.0 Phone: [facility] Centerfake company 2.0 Phone: cBC with Diffon [phone]. Basophil0.00 k/uLNormal 0.0-0.2MSt. Mary's Medical CenterComment on above:Performed By: #### CDP, BMPX #### [facility] [address] [place] [address] Testing Machine Operator: Phoenix Park.Neutrophil (Seg)8.90 k/uLHigh2.5-7.0Ohio State Harding HospitalComment on above:Performed By: #### CDP, BMPX #### [facility] [address] [place] [address] Testing Machine Operator: James Park Diff PerformedYESNoZanesville City Hospital Comment on above:Performed By: #### CDP, BMPX #### [facility] [address] [place] [address] Testing Machine Operator: Darryl Sturtz, MDBasophils/100 WBC (Bld)0 %Normal0-2MSt. Mary's Medical CenterComment on above:Performed By: #### CDP, BMPX #### [facility] [address] [place], [place] [address] Testing Machine Operator: LISE Parkosinophils (Bld) [#/Vol]0.00 10*3/uLNormal0.0-0.4 [facility] HospitalCommclaren bay special care hospital on above:Performed By: #### CDP, BMPX #### [facility] [address] [place] [address] Testing Machine Operator: LISE Parkosinophils/100 WBC (Bld)0 %Normal0-5Ohio State Harding HospitalComment on above:Performed By: #### CDP, BMPX #### [facility] [address] [place] [address] Testing Machine Operator: Darryl Granger MDErythrocyte distribution width (RBC) [Ratio]18.7 % High12.1-15.2MSt. Mary's Medical CenterComment on above:Performed By: #### ESA, BMPX #### [facility] [address] [place] [address] Testing Machine Operator: Darryl Granger MDHematocrit (Bld) [Volume fraction]26.5 %Uos07-43 [facility] HospitalCommclaren bay special care hospital on above:Performed By: #### CDP, BMPX #### [facility] [address] [place] [address] Testing Machine Operator: Darryl Granger MDHemoglobin (Bld) [Mass/Vol]8.8 g/dLLow12.0-16.0 [facility] HospitalCommclaren bay special care hospital on above:Performed By: #### CDP, BMPX #### [facility] [address] [place] [address] Testing Machine Operator: Darryl Granger MDLymphocytes (Bld) [#/Vol]1.20 10*3/uLNormal1.0-4.8 [facility] on above:Performed By: #### CDP, BMPX #### [facility] [address] [place], [place] [address] Testing Machine Operator: Darryl Granger MDLymphocytes/100 WBC (Bld)11 %Fef14-42PgvcnOhio State Harding HospitalComment on above:Performed By: #### CDP, BMPX #### [facility] [address] [place] [address] Testing Machine Operator: KALYAN ParkCH (RBC) [Entitic mass]27.3 wxKjqwwr18-87KayaiOhio State Harding HospitalCommclaren bay special care hospital on above:Performed By: #### ESA, BMPX #### [facility] [address] [place] [address] Testing Machine Operator: ALANA ParkC (RBC) [Mass/Vol]33.2 g/pWHwueor09-01EhogqOhio State Harding HospitalComment on above:Performed By: #### ESA, BMPX #### [facility] [address] [place], [place] [address] Testing Machine Operator: KALYAN ParkCV (RBC) [Entitic vol]82.2 aORybdwr90-530JbsqoOhio State Harding HospitalCommclaren bay special care hospital on above:Performed By: #### CDP, BMPX #### [facility] [address] [place] [address] Testing Machine Operator: KALYAN Parkonocytes (Bld) [#/Vol]0.90 10*3/uLNormal0.0-1.0 [facility] on above:Performed By: #### CDP, BMPX #### [facility] [address] [place] [address] Testing Machine Operator: KALYAN Parkonocytes/100 WBC (Bld)8 %Normal4-8Ohio State Harding HospitalComment on above:Performed By: #### CDP, BMPX #### [facility] [address] [place] [address] Testing Machine Operator: Samra Park (Seg)81 %Dykj41-11MjhqsOhio State Harding HospitalComment on above:Performed By: #### CDP, BMPX #### [facility] [address] [place] [address] Testing Machine Operator: Cas Park (Bld) [#/Vol]114 10*3/cGCul464-466AprfkOhio State Harding HospitalComment on above:Performed By: #### CDP, BMPX #### [facility] [address] [place] [address] Testing Machine Operator: EN ParkBC (Bld) [#/Vol]3.23 10*6/uLLow4.0-5.2MSt. Mary's Medical CenterComment on above:Performed By: #### CDP, BMPX #### [facility] [address] [place] [address] Testing Machine Operator: ANDER Park (Bld) [#/Vol]10.9 10*3/uLNormal3.5-11.0Ohio State Harding HospitalComment on above:Performed By: #### CDP, BMPX #### [facility] [address] [place] [address] Testing Machine Operator: [place] Park.Imm.GranulocyteNOT REPORTEDNormal0.00-0.30 [facility] Hard[facility] HospitalComment on above:Performed By: #### CDP, BMPX #### [facility] [address] [place], [place] [address] Testing Machine Operator: Tami Park GranulocyteNOT RRLKTVZAPdejwz4RwlneOhio State Harding HospitalComment on above:Performed By: #### CDP, BMPX #### [facility] [address] [place], [place] [address] Testing Machine Operator: KALYAN ParkPVNOT REPORTEDNormal6.0-12.0[facility] Harding HospitalComment on above:Performed By: #### CDP, BMPX #### [facility] [address] [place], [place] [address] Testing Machine Operator: EUGENIA Park AutomatedNOT REPORTEDNormalOhio State Harding HospitalComment on above:Performed By: #### CDP, BMPX #### [facility] [address] [place], [place] [address] Testing Machine Operator: Raymond Park EstimateNOT REPORTEDNormalUniversity Hospitals Parma [facility] Center HospitalComment on above:Performed By: #### CDP, BMPX #### [facility] [address] [place], [place] [address] Testing Machine Operator: YAYA Park morphology finding Nom (Bld)NOT REPORTEDNormal [facility] HospitalComment on above:Performed By: #### CDP, BMPX #### [facility] [address] [place], [place] [address] Testing Machine Operator: ANDER Park MorphologyNOT REPORTEDNormalOhio State Harding HospitalComment on above:Performed By: #### CDP, BMPX #### [facility] [address] [place], [place] [address] Testing Machine Operator: Erna Park Metabolic PanelOrdered By: Eugene Michelle on [id number] gap [Moles/Vol]3 mmol/LLow9 - 17 mmol/LMercy Health Work Phone: calcium [Mass/Vol]7.9 mg/dLLow8.6 - 10.4 mg/dLMercy Health Fairfield Hospital [employer] Work Phone: chloride [Moles/Vol]108 mmol/LHigh98 - 107 mmol/LMWhiteHat Securityy QM Power Phone: cO2 [Moles/Vol]26 mmol/L20 - 31 mmol/LMparkwood hospitaly QM Power Phone: creatinine [Mass/Vol]1.35 mg/dLHigh0.50 - 0.90 mg/dL Conmio Phone: GFR Bkxbbjij26 mL/minLow>60[facility] Centerfake company 2.0 Phone: GFR Non- Cmrtqspv18 mL/minLow>60[facility] Centerfake company 2.0 Phone: GFR/1.73 sq M.predicted MDRD (S/P/Bld) [Vol rate/Area] [facility] Phone: comment on above:Average GFR for 70 or more years old: 75 mL/min/1.73sq m Chronic Kidney Disease: <60 mL/min/1.73sq m Kidney failure: <15 mL/min/1.73sq m eGFR calculated using average adult body mass. Additional eGFR calculator available at: http://www.Tipjoy/multiple_crcl_2012.htm GFR/1.73 sq M.predicted MDRD (S/P/Bld) [Vol rate/Area]NOT REPORTEDChillicothe Va Medical Centerfake company 2.0 Phone: Glucose [Mass/Vol]102 mg/bHIige46 - 99 mg/dLChillicothe Va Medical Centerfake company 2.0 Phone: Interpretation and review of laboratory results AbnormalChillicothe Va Medical Centerfake company 2.0 Phone: potassium [Moles/Vol]4.8 mmol/L3.7 - 5.3 mmol/LMparkwood hospitaly QM Power Phone: sodium [Moles/Vol]137 mmol/L135 - 144 mmol/LMparkwood hospitaly QM Power Phone: Urea nitrogen (BldV) [Mass/Vol]19 mg/dL8 - 23 mg/dL [facility] Phone: Urea nitrogen/Creatinine (Bld) [Mass ratio]14[facility] Work Phone: basic Metabolic Profon 01-11-2021(cont.)[facility]onton CampusComment on above:Result Comment: Average GFR for 70 or more years old: 75 mL/min/1.73sq m Chronic Kidney Disease: <60 mL/min/1.73sq m Kidney failure: <15 mL/min/1.73sq m eGFR calculated using average adult body mass. Additional eGFR calculator available at: http://www.Tipjoy/multiple_crcl_2012.htmPerformed By: #### HH #### [facility] [address] [place] [address] Testing Machine Operator: Darryl Granger MDAnion gap [Moles/Vol]3 mmol/LLow9-17[facility] Hard[facility] HospitalComment on above:Performed By: #### HH #### [facility] [address] [place] [address] Testing Machine Operator: Darryl Granger MDBUN/CRE Tilro47Stwbjb1-16Fqjci [facility] Comment on above:Performed By: #### HH #### [facility] [address] [place] [address] Testing Machine Operator: FRANKIE Parkalcium [Mass/Vol]7.9 mg/dLLow8.6-10.4Ohio State Harding HospitalComment on above:Performed By: #### HH #### [facility] [address] [place] [address] Testing Machine Operator: FRANKIE Parkhloride [Moles/Vol]108 mmol/TZbzs33-277YxiydOhio State Harding HospitalComment on above:Performed By: #### HH #### [facility] [address] [place] [address] Testing Machine Operator: FRANKIE ParkO2 [Moles/Vol]26 mmol/QUfueyz10-74XbtolOhio State Harding HospitalComment on above:Performed By: #### HH #### [facility] [address] [place], [place] [address] Testing Machine Operator: FRANKIE Parkreatinine [Mass/Vol]1.35 mg/dLHigh0.50-0.90[facility] HospitalComment on above:Performed By: #### HH #### [facility] [address] [place], [place] [address] Testing Machine Operator: Darryl Granger MDGFR, Amer47 mL/minLow>60[facility] HospitalComment on above:Performed By: #### HH #### [facility] [address] [place] [address] Testing Machine Operator: Darryl Granger MDGFR,non Amer39 mL/minLow>60[facility] HospitalComment on above:Performed By: #### HH #### [facility] [address] [place], [place] [address] Testing Machine Operator: Darryl Granger MDGlucose [Mass/Vol]102 mg/uTDjyv57-01Fixbq [facility] HospitalComment on above:Performed By: #### HH #### [facility] [address] [place], [place] [address] Testing Machine Operator: ABDIEL Parkotassium [Moles/Vol]4.8 mmol/LNormal3.7-5.3MTriHealth Bethesda Butler Hospital HospitalComment on above:Performed By: #### HH #### [facility] [address] [place], [place] [address] Testing Machine Operator: Darryl Granger MDSodium [Moles/Vol]137 mmol/CPvqvyp039-183Oifwq [facility] HospitalComment on above:Performed By: #### HH #### [facility] [address] [place] [address] Testing Machine Operator: Darryl Granger MDUrea nitrogen [Mass/Vol]19 mg/dLNormal8-23[facility] HospitalComment on above:Performed By: #### HH #### [facility] [address] [place] [address] Testing Machine Operator: JANICE Parktaging:NOT REPORTEDNoZanesville City Hospital Comment on above:Performed By: #### HH #### [facility] [address] [place] [address] Testing Machine Operator: Richard Park [id number] distribution width (RBC) [Ratio]19.5 %High12.1-15.2MSt. Mary's Medical CenterComment on above:Performed By: #### MARIO WESLEY #### [facility] [address] [place] [address] Testing Machine Operator: Darryl Granger MDHematocrit (Bld) [Volume fraction]26.9 %Rqt57-79 [facility] HospitalComment on above:Performed By: #### MARYJANE LACFERNANDA #### [facility] [address] [place] [address] Testing Machine Operator: Darryl Granger MDHemoglobin (Bld) [Mass/Vol]9.0 g/dLLow12.0-16.0 [facility] HospitalComment on above:Performed By: #### MARYJANE, LACDS #### [facility] [address] [place] [address] Testing Machine Operator: KALYAN ParkCH (RBC) [Entitic mass]27.5 wmDfwdda38-21MufsoOhio State Harding HospitalComment on above:Performed By: #### MARYJANE, LACDS #### [facility] [address] [place] [address] Testing Machine Operator: KALYAN ParkCHC (RBC) [Mass/Vol]33.5 g/gQPokpvf89-70Annii [facility] HospitalComment on above:Performed By: #### MARYJANE, LACDS #### [facility] [address] [place], [place] [address] Testing Machine Operator: PILY Park (RBC) [Entitic vol]82.2 rCLvjrcm20-957Annvb [facility] HospitalComment on above:Performed By: #### MARYJANE, LACDS #### [facility] [address] [place], [place] [address] Testing Machine Operator: Cas Park (Bld) [#/Vol]109 10*3/hSIcw551-271Wxsfj [facility] HospitalComment on above:Performed By: #### MARYJANE, LACDS #### [facility] [address] [place], [place] [address] Testing Machine Operator: YAYA Park (Bld) [#/Vol]3.27 10*6/uLLow4.0-5.2MercSalem Regional Medical Center HospitalComment on above:Performed By: #### MARIO WESLEY #### [facility] [address] [place] [address] Testing Machine Operator: ANDER Park (Bld) [#/Vol]12.1 10*3/uLHigh3.5-11.0[facility] HospitalComment on above:Performed By: #### MARYJANE, LACDS #### [facility] [address] [place], [place] [address] Testing Machine Operator: KALYAN ParkPVNOT REPORTEDNormal6.0-12.0[facility] HospitalComment on above:Performed By: #### MARYJANE, LACDS #### [facility] [address] [place], [place] [address] Testing Machine Operator: EUGENIA Park AutomatedNOT REPORTEDNormalUniversity Hospitals Parma Medical Center HospitalComment on above:Performed By: #### MARYJANE, LACDS #### [facility] [address] [place] [address] Testing Machine Operator: FRANKIE ParkBCOrdered By: Isaias Lowry on 01-11-2021 Hematocrit (Bld) [Volume fraction]26.9 %Low36 - 46 %Conmio Phone: Hemoglobin.gastrointestinal spec 1 Ql (Stl)9.0 g/dLLow 12.0 - 16.0 g/dLConmio Phone: Interpretation and review of laboratory results AbnormalConmio Phone: MCH (RBC) [Entitic mass]27.5 pg26 - 34 pgConmio Phone: MCHC (RBC) [Mass/Vol]33.5 g/dL31 - 37 g/dLConmio Phone: MCV (RBC) [Entitic vol]82.2 fL80 - 100 fLConmio Phone: NRBC AutomatedNOT REPORTEDper 100 WBCConmio Phone: platelet distribution width (Bld) [Ratio]19.5 %High 12.1 - 15.2 %Conmio Phone: platelet mean volume (Bld) [Entitic vol]NOT REPORTED 6.0 - 12.0 fLConmio Phone: platelets (Bld) [#/Vol]109 10*3/uLLowConmio Phone: RBC (Bld) [#/Vol]3.27 10*6/uLLow4.0 - 5.2 m/uLConmio Phone: WBC (Bld) [#/Vol]12.1 10*3/uLHighConmio Phone: Merfake [employer] 2.0 Phone: cBC Auto DifferentialOrdered By: Isaias Lowry on [id number] Eos #0.00[facility] Centerfake company 2.0 Phone: absolute Immature GranulocyteNOT REPORTEDChillicothe Va Medical Centerfake company 2.0 Phone: absolute Lymph #1.50[facility] Centerfake company 2.0 Phone: absolute Pleasants #0.90[facility] Centerfake company 2.0 Phone: basophils (Bld) [#/Vol]0.00 10*3/uLChillicothe Va Medical Centerfake company 2.0 Phone: basophils/100 WBC (Bld)0 %0 - 2 %Conmio Phone: differential TypeNOT REPORTEDChillicothe Va Medical Centerfake company 2.0 Phone: eosinophils/100 WBC (Bld)0 %0 - 5 %Conmio Phone: Hematocrit (Bld) [Volume fraction]26.5 %Low36 - 46 % Conmio Phone: Hemoglobin.gastrointestinal spec 1 Ql (Stl)8.9 g/dLLow 12.0 - 16.0 g/dLChillicothe Va Medical Centerfake company 2.0 Phone: Immature GranulocytesNOT REPORTED0 %Conmio Phone: Interpretation and review of laboratory results AbnormalChillicothe Va Medical Centerfake company 2.0 Phone: lymphocytes/100 WBC (Bld)12 %Low15 - 40 %Conmio Phone: MCH (RBC) [Entitic mass]27.5 pg26 - 34 pgChillicothe Va Medical Centerfake company 2.0 Phone: MCHC (RBC) [Mass/Vol]33.5 g/dL31 - 37 g/dLChillicothe Va Medical Centerfake company 2.0 Phone: MCV (RBC) [Entitic vol]82.2 fL80 - 100 fLChillicothe Va Medical Centerfake company 2.0 Phone: Monocytes/100 WBC (Bld)7 %4 - 8 %Conmio Phone: Morphology Pramod (Bld) [Interp]SLIGHT DECREASED PLATELETSChillicothe Va Medical CenterJobpartners Work Phone: Morphology Pramod (Bld) [Interp]SLIGHT ANISOCYTOSISChillicothe Va Medical Centerfake company 2.0 Phone: NRBC AutomatedNOT REPORTEDper 100 WBCChillicothe Va Medical CenterJobpartners Work Phone: platelet distribution width (Bld) [Ratio]19.3 %High 12.1 - 15.2 %Conmio Phone: platelet EstimateNOT REPORTEDChillicothe Va Medical Centerfake company 2.0 Phone: platelet mean volume (Bld) [Entitic vol]NOT REPORTED 6.0 - 12.0 fLChillicothe Va Medical Centerfake company 2.0 Phone: Tlatelets (Bld) [#/Vol]107 10*3/uLLowChillicothe Va Medical CenterJobpartners Work Phone: RBC (Bld) [#/Vol]3.23 10*6/uLLow4.0 - 5.2 m/uLChillicothe Va Medical Centerfake company 2.0 Phone: RBC (Bld) [#/Vol]NOT REPORTEDChillicothe Va Medical Centerfake company 2.0 Phone: Segmented neutrophils/100 WBC (Bld)81 %High47 - 75 % [facility] Phone: Segs Eikvunzy47.30HighChillicothe Va Medical Centerfake company 2.0 Phone: WBC (Bld) [#/Vol]12.8 10*3/uLHighChillicothe Va Medical Centerfake company 2.0 Phone: [phone] (Bld) [#/Vol]NOT REPORTEDChillicothe Va Medical Centerfake company 2.0 Phone: [facility] CenterJobpartners Work Phone: CBC Auto DifferentialOrdered By: Eugene Michelle on [id number] Eos #0.00[facility] CenterJobpartners Work Phone: Absolute Immature GranulocyteNOT REPORTEDChillicothe Va Medical Centerfake company 2.0 Phone: absolute Lymph #2.10[facility] Centerfake company 2.0 Phone: absolute Pleasants #0.90[facility] Centerfake company 2.0 Phone: basophils (Bld) [#/Vol]0.00 10*3/uLChillicothe Va Medical Centerfake company 2.0 Phone: basophils/100 WBC (Bld)0 %0 - 2 %Conmio Phone: differential TypeNOT REPORTEDChillicothe Va Medical Centerfake company 2.0 Phone: eosinophils/100 WBC (Bld)0 %0 - 5 %Conmio Phone: Hematocrit (Bld) [Volume fraction]27.6 %Low36 - 46 % Conmio Phone: Hemoglobin.gastrointestinal spec 1 Ql (Stl)9.2 g/dLLow 12.0 - 16.0 g/dLChillicothe Va Medical Centerfake company 2.0 Phone: Immature GranulocytesNOT REPORTED0 %Conmio Phone: Interpretation and review of laboratory results AbnormalChillicothe Va Medical Centerfake company 2.0 Phone: lymphocytes/100 WBC (Bld)18 %15 - 40 %Conmio Phone: MCH (RBC) [Entitic mass]27.2 pg26 - 34 pgChillicothe Va Medical Centerfake company 2.0 Phone: MCHC (RBC) [Mass/Vol]33.3 g/dL31 - 37 g/dLChillicothe Va Medical Centerfake company 2.0 Phone: MCV (RBC) [Entitic vol]81.8 fL80 - 100 fLChillicothe Va Medical Centerfake company 2.0 Phone: Monocytes/100 WBC (Bld)8 %4 - 8 %Conmio Phone: Morphology Pramod (Bld) [Interp]SLIGHT ANISOCYTOSISChillicothe Va Medical Centerfake company 2.0 Phone: NRBC AutomatedNOT REPORTEDper 100 WBCChillicothe Va Medical Centerfake company 2.0 Phone: Platelet distribution width (Bld) [Ratio]19.4 %High 12.1 - 15.2 %Conmio Phone: Platelet EstimateNOT REPORTEDChillicothe Va Medical Centerfake company 2.0 Phone: Platelet mean volume (Bld) [Entitic vol]NOT REPORTED 6.0 - 12.0 fLChillicothe Va Medical Centerfake company 2.0 Phone: Platelets (Bld) [#/Vol]107 10*3/uLLowChillicothe Va Medical Centerfake company 2.0 Phone: RBC (Bld) [#/Vol]3.37 10*6/uLLow4.0 - 5.2 m/uLChillicothe Va Medical Centerfake company 2.0 Phone: RBC (Bld) [#/Vol]NOT REPORTEDChillicothe Va Medical Centerfake company 2.0 Phone: Segmented neutrophils/100 WBC (Bld)74 %47 - 75 %Conmio Phone: Segs Absolute8.80HighChillicothe Va Medical Centerfake company 2.0 Phone: WBC (Bld) [#/Vol]11.8 10*3/uLBeth Israel Hospitalfake company 2.0 Phone: WBC (Bld) [#/Vol]NOT REPORTEDChillicothe Va Medical Centerfake company 2.0 Phone: [facility]fake [facility] 2.0 Phone: CBC with Diffon [phone] Pramod (Bld) [Interp]SLIGHTNormalOhio State Harding HospitalComment on above:Result Comment: DECREASED PLATELETS SLIGHT ANISOCYTOSISPerformed By: #### CDP #### [facility] [address] [place] [address] Testing Machine Operator: [place]. Basophil0.00 k/uLNormal0.0-0.2MTriHealth Bethesda Butler Hospital HospitalComment on above:Performed By: #### CDP #### [facility] [address] [place] [address] Testing Machine Operator: [place].Neutrophil (Seg)10.30 k/uLHigh2.5-7.0Ohio [facility] Hard[facility] HospitalComment on above:Performed By: #### CDP #### [facility] [address] [address] Testing Machine Operator: Darryl Granger MDBasophils/100 WBC (Bld)0 %Normal0-2MTriHealth Bethesda Butler Hospital HospitalComment on above:Performed By: #### CDP #### [facility] [address] [place] [address] Testing Machine Operator: Darryl Granger MDEosinophils (Bld) [#/Vol]0.00 10*3/uLNormal0.0-0.4 [facility] HospitalComment on above:Performed By: #### CDP #### [facility] [address] [address] Testing Machine Operator: Darryl Granger MDEosinophils/100 WBC (Bld)0 %Normal0-5Ohio State Harding HospitalComment on above:Performed By: #### CDP #### [facility] [address] [place] [address] Testing Machine Operator: Darryl Granger MDErythrocyte distribution width (RBC) [Ratio]19.3 % High12.1-15.2MSt. Mary's Medical CenterComment on above:Performed By: #### CDP #### [facility] [address] [address] Testing Machine Operator: Darryl Granger MDHematocrit (Bld) [Volume fraction]26.5 %Mdc41-64 [facility] HospitalComment on above:Performed By: #### CDP #### [facility] [address] [place], [place] [address] Testing Machine Operator: Darryl Granger MDHemoglobin (Bld) [Mass/Vol]8.9 g/dLLow12.0-16.0 [facility] HospitalComment on above:Performed By: #### CDP #### [facility] [address] [place], [place] [address] Testing Machine Operator: Darryl Granger MDLymphocytes (Bld) [#/Vol]1.50 10*3/uLNormal1.0-4.8 [facility] HospitalComment on above:Performed By: #### CDP #### [facility] [address] [place] [address] Testing Machine Operator: Ciaran Parkhocytes/100 WBC (Bld)12 %Veb88-51MpkxzOhio State Harding HospitalComment on above:Performed By: #### CDP #### [facility] [address] [place] [address] Testing Machine Operator: KALYAN ParkCH (RBC) [Entitic mass]27.5 wrYnoavm77-72SelfnOhio State Harding HospitalComment on above:Performed By: #### CDP #### [facility] [address] [place] [address] Testing Machine Operator: ALANA ParkC (RBC) [Mass/Vol]33.5 g/jSCadqwg95-53MgbwiOhio State Harding HospitalComment on above:Performed By: #### CDP #### [facility] [address] [place] [address] Testing Machine Operator: KALYAN ParkCV (RBC) [Entitic vol]82.2 kQUkijms90-420ShsusOhio State Harding HospitalCommclaren bay special care hospital on above:Performed By: #### CDP #### [facility] [address] [place] [address] Testing Machine Operator: KALYAN Parkonocytes (Bld) [#/Vol]0.90 10*3/uLNormal0.0-1.0 [facility] HospitalComment on above:Performed By: #### CDP #### [facility] [address] [place] [address] Testing Machine Operator: KALYAN Parkonocytes/100 WBC (Bld)7 %Normal4-8[facility] HospitalComment on above:Performed By: #### CDP #### [facility] [address] [place] [address] Testing Machine Operator: Pascual Parkutrophil (Seg)81 %Vkej30-85OqcknOhio State Harding HospitalComment on above:Performed By: #### CDP #### [facility] [address] [place] [address] Testing Machine Operator: Natacha Parktelets (Bld) [#/Vol]107 10*3/bKMtr137-603MhctrOhio State Harding HospitalComment on above:Performed By: #### CDP #### [facility] [address] [place] [address] Testing Machine Operator: EN ParkBC (Bld) [#/Vol]3.23 10*6/uLLow4.0-5.2MSt. Mary's Medical CenterComment on above:Performed By: #### CDP #### [facility] [address] [place] [address] Testing Machine Operator: SHERIF ParkBC (Bld) [#/Vol]12.8 10*3/uLHigh3.5-11.0[facility] Hard[facility] HospitalComment on above:Performed By: #### CDP #### [facility] [address] [place] [address] Testing Machine Operator: [place].Imm.GranulocyteNOT REPORTEDNormal0.00-0.30 [facility] HospitalComment on above:Performed By: #### CDP #### [facility] [address] [place], [place] [address] Testing Machine Operator: [place] Park Diff PerformedNOT REPORTEDNormalUniversity Hospitals Parma Medical Center HospitalComment on above:Performed By: #### CDP #### [facility] [address] [place], [place] [address] Testing Machine Operator: Tami Park GranulocyteNOT TVUXJBKAFtjcdo7Sdgkz Willard HospitalComment on above:Performed By: #### CDP #### [facility] [address] [address] Testing Machine Operator: KALYAN ParkPVNOT REPORTEDNormal6.0-12.0[facility] HospitalComment on above:Performed By: #### CDP #### [facility] [address] [address] Testing Machine Operator: EUGENIA Park AutomatedNOT REPORTEDNormalOhio State Harding HospitalComment on above:Performed By: #### CDP #### [facility] [address] [place], [place] [address] Testing Machine Operator: Raymond Park EstimateNOT REPORTEDNormalOhio State Harding HospitalComment on above:Performed By: #### CDP #### [facility] [address] [place] [address] Testing Machine Operator: YAYA Park morphology finding Nom (Bld)NOT REPORTEDNormal [facility] HospitalComment on above:Performed By: #### CDP #### [facility] [address] [place], [place] [address] Testing Machine Operator: ANDER Park MorphologyNOT REPORTEDNormalOhio State Harding HospitalComment on above:Performed By: #### CDP #### [facility] [address] [place], [place] [address]368[address] Testing Machine Operator: KALYAN Parkorphology Pramod (Bld) [Interp]SLIGHTNormalOhio State Harding HospitalCommclaren bay special care hospital on above:Result Comment: ANISOCYTOSISPerformed By: #### HH #### [facility] [address] [place], [place] [address] Testing Machine Operator: [place]. Basophil0.00 k/uLNormal0.0-0.2MLancaster Municipal Hospital on above:Performed By: #### HH #### [facility] [address] [address] Testing Machine Operator: [place].Neutrophil (Seg)8.80 k/uLHigh2.5-7.0[facility] on above:Performed By: #### HH #### [facility] [address] [place], [place] [address] Testing Machine Operator: Darryl Granger MDBasophils/100 WBC (Bld)0 %Normal0-2MSt. Mary's Medical CenterComment on above:Performed By: #### HH #### [facility] [address] [address] Testing Machine Operator: Darryl Granger MDEosinophils (Bld) [#/Vol]0.00 10*3/uLNormal0.0-0.4 [facility] on above:Performed By: #### HH #### [facility] [address] [place], [place] [address] Testing Machine Operator: Darryl Granger MDEosinophils/100 WBC (Bld)0 %Normal0-5[facility] on above:Performed By: #### HH #### [facility] [address] [place] [address] Testing Machine Operator: Darryl Granger MDErythrocyte distribution width (RBC) [Ratio]19.4 % High12.1-15.2MSt. Mary's Medical CenterComment on above:Performed By: #### HH #### [facility] [address] [place] [address] Testing Machine Operator: Darryl Granger MDHematocrit (Bld) [Volume fraction]27.6 %Vgy43-40 [facility] HospitalComment on above:Performed By: #### HH #### [facility] [address] [address] Testing Machine Operator: Darryl Granger MDHemoglobin (Bld) [Mass/Vol]9.2 g/dLLow12.0-16.0 [facility] HospitalComment on above:Performed By: #### HH #### [facility] [address] [place] [address] Testing Machine Operator: Darryl Granger MDLymphocytes (Bld) [#/Vol]2.10 10*3/uLNormal1.0-4.8 [facility] HospitalComment on above:Performed By: #### HH #### [facility] [address] [place] [address] Testing Machine Operator: Constanza Parkmphocytes/100 WBC (Bld)18 %Lbsqth86-00CfoauOhio State Harding HospitalComment on above:Performed By: #### HH #### [facility] [address] [address] Testing Machine Operator: KALYAN ParkCH (RBC) [Entitic mass]27.2 osMszpit59-53UpnnoOhio State Harding HospitalComment on above:Performed By: #### HH #### [facility] [address] [address] Testing Machine Operator: KALYNA ParkCHC (RBC) [Mass/Vol]33.3 g/sNOimtzp58-08NqyhgOhio State Harding HospitalComment on above:Performed By: #### HH #### [facility] [address] [place], [place] [address] (631) Testing Machine Operator: KALYAN ParkCV (RBC) [Entitic vol]81.8 gDUwjlpd35-812LmdhiOhio State Harding HospitalComment on above:Performed By: #### HH #### [facility] [address] [place] [address] Testing Machine Operator: KALYAN Parkonocytes (Bld) [#/Vol]0.90 10*3/uLNormal0.0-1.0 [facility] HospitalCommclaren bay special care hospital on above:Performed By: #### HH #### [facility] [address] [place] [address] Testing Machine Operator: KALYAN Parkonocytes/100 WBC (Bld)8 %Normal4-8[facility] HospitalComment on above:Performed By: #### HH #### [facility] [address] [place] [address] Testing Machine Operator: Alexandria Parkophil (Seg)74 %Flpfcx90-14SgkbeOhio State Harding HospitalComment on above:Performed By: #### HH #### [facility] [address] [place] [address] Testing Machine Operator: ABDIEL Parklatelets (Bld) [#/Vol]107 10*3/xFAde343-028UcgheOhio State Harding HospitalComment on above:Performed By: #### HH #### [facility] [address] [place] [address] Testing Machine Operator: EN ParkBC (Bld) [#/Vol]3.37 10*6/uLLow4.0-5.2MTriHealth Bethesda Butler Hospital HospitalComment on above:Performed By: #### HH #### [facility] [address] [place] [address] Testing Machine Operator: ANDER Park ([facility]) [#/Vol]11.8 10*3/uLHigh3.5-11.0[facility] HospitalComment on above:Performed By: #### HH #### [facility] [address] [place] [address] Testing Machine Operator: MDAbs. VivianImm.GranulocyteNOT REPORTEDNormal0.00-0.30 [facility] HospitalComment on above:Performed By: #### HH #### [facility] [address] [place] [address] Testing Machine Operator: [place] Diff PerformedNOT REPORTEDNormalMerUpper Valley Medical Center HospitalComment on above:Performed By: #### HH #### [facility] [address] [place] [address] Testing Machine Operator: Tami Park GranulocyteNOT DIMLQEZLDgqrat9Hadoh Loudon HospitalComment on above:Performed By: #### HH #### [facility] [address] [place] [address] Testing Machine Operator: KALYAN ParkPVNOT REPORTEDNormal6.0-12.0[facility] HospitalComment on above:Performed By: #### HH #### [facility] [address] [place] [address] Testing Machine Operator: EUGENIA Park AutomatedNOT REPORTEDNormalMercy Loudon HospitalComment on above:Performed By: #### HH #### [facility] [address] [place] [address] Testing Machine Operator: Raymond Park EstimateNOT REPORTEDNormalMerUpper Valley Medical Center HospitalComment on above:Performed By: #### HH #### [facility] [address] [place] [address] Testing Machine Operator: YAYA Park morphology finding Nom (Bld)NOT REPORTEDNormal [facility] HospitalComment on above:Performed By: #### HH #### [facility] [address] [place] [address] Testing Machine Operator: ANDER Park MorphologyNOT REPORTEDNormalOhio State Harding HospitalComment on above:Performed By: #### HH #### [facility] [address] [place] [address] Testing Machine Operator: Angela Park, Sepsison [id number] Acid, Sepsis1.2 mmol/LNormal0.5-1.9[facility] HospitalComment on above:Performed By: #### CDP, BMPX #### [facility] [address] [place], [place] [address] Testing Machine Operator: Elizabeth Park Acid,Sep WbldNOT REPORTEDNormal0.5-1.9[facility] HospitalComment on above:Performed By: #### CDP, BMPX #### [facility] [address] [place], [place] [address] Testing Machine Operator: Angela Park, SepsisOrdered By: Isaias Lowry on [phone] Acid, Sepsis1.2 mmol/L0.5 - 1.9 mmol/LMercy Health Work Phone: lactic Acid, Sepsis, Whole BloodNOT REPORTED0.5 - 1.9 mmol/LMercy Health Work Phone: [employer] Work Phone: Magnesiumon [phone] [Mass/Vol]1.8 mg/dL Normal1.6-2.6MSt. Mary's Medical CenterComment on above:Performed By: #### HH #### [facility] [address] [place], [place] [address] Testing Machine Operator: Darryl Granger MDMagnesiumOrdered By: Isaias Lowry on 01-11-2021 Magnesium [Mass/Vol]1.8 mg/dL1.6 - 2.6 mg/dLChillicothe Va Medical Centerfake company 2.0 Phone: No Panel InformationOrdered By: Isaias Lowry on [phone] Work Phone: TYPE AND SCREENOrdered By: Isaias Lowry on [id number]/RhNegativeMerfake company 2.0 Phone: arm Band NumberNOT REPORTEDMerfake company 2.0 Phone: blood product type Nom (BPU)Leukocyte Reduced Red Cell [facility] HospitalLaunchLab Phone: crossmatch ResultCOMPATIBLEChillicothe Va Medical Centerfake company 2.0 Phone: dispense StatusTRANSFUSEDMcity hospital [employer] Work Phone: expiration Date01/12/2021,2359Merfake company 2.0 Phone: Transfusion StatusOK TO TRANSFUSEChillicothe Va Medical Centerfake company 2.0 Phone: Unit Yfmxtkx6Pqlctfake company 2.0 Phone: Unit [id number] Health Work Phone: Unit [id number] Health Work Phone: [facility]fake company 2.0 Phone: XR CHEST PORTABLEon [id number] CHEST PORTABLEEXAM: XR CHEST PORTABLE HISTORY: Reason for exam:->elevated [...] Signed by: Darryl Son MD 01/11/21 Final resultNormalOhio State Harding HospitalXR CHEST PORTABLEOrdered By: Isaias Lowry on [id number]: 1. Interval development of the left lower lobe pneumonia with a small left effusion. 2.Old granulomatous disease. 3. Right lung is unremarkable.Conmio Phone: eXAM: XR CHEST PORTABLE HISTORY: Reason for exam:- >elevated WBC cough . COMPARISON: 01/08/2021 TECHNIQUE: Portable view of the chest. FINDINGS: Heart and vascularity are unremarkable. Right lung is unremarkable. There is been interval development of the left lower lobe pneumonia with a small lefteffusion. Left upper lobe is unremarkable. Atherosclerotic changes of the thoracic aorta are noted.There is calcified granuloma in the left midlung field. EKG leads overlie the chest.Conmio Phone: edi, [facility] Incoming Radiant Results From [employer] - 01/11/2021 6:53 PM EDT EXAM: XR [...] granulomatous disease. 3. Right lung is unremarkable. Conmio Phone: [facility]fake company 2.0 Phone: basic Metabolic PanelOrdered By: Eugene Michelle on [id number] gap [Moles/Vol]7 mmol/LLow9 - 17 mmol/LMercy [employer] Work Phone: calcium [Mass/Vol]8.4 mg/dLLow8.6 - 10.4 mg/dLChillicothe Va Medical Centerfake company 2.0 Phone: chloride [Moles/Vol]106 mmol/L98 - 107 mmol/LMparkwood hospitaly [employer] Work Phone: cO2 [Moles/Vol]22 mmol/L20 - 31 mmol/LMparkwood hospitaly [employer] Work Phone: creatinine [Mass/Vol]1.63 mg/dLHigh0.50 - 0.90 mg/dL [facility] Phone: GFR Fhrujcpe12 mL/minLow>60[facility] Centerfake company 2.0 Phone: GFR Non- Gkikxclt55 mL/minLow>60[facility] Centerfake company 2.0 Phone: GFR/1.73 sq M.predicted MDRD (S/P/Bld) [Vol rate/Area] [facility]Launch[facility] Phone: comment on above:Average GFR for 70 or more years old: 75 mL/min/1.73sq m Chronic Kidney Disease: <60 mL/min/1.73sq m Kidney failure: <15 mL/min/1.73sq m eGFR calculated using average adult body mass. Additional eGFR calculator available at: http://www.Tipjoy/multiple_crcl_2012.htm GFR/1.73 sq M.predicted MDRD (S/P/Bld) [Vol rate/Area]NOT REPORTEDChillicothe Va Medical Centerfake company 2.0 Phone: Glucose [Mass/Vol]157 mg/yBTzxd89 - 99 mg/dLChillicothe Va Medical Centerfake company 2.0 Phone: Interpretation and review of laboratory results AbnormalChillicothe Va Medical Centerfake company 2.0 Phone: potassium [Moles/Vol]5.4 mmol/LHigh3.7 - 5.3 mmol/L [facility]Launch[facility] Phone: sodium [Moles/Vol]135 mmol/L135 - 144 mmol/LMparkwood hospitaly [employer] Work Phone: Urea nitrogen (BldV) [Mass/Vol]19 mg/dL8 - 23 mg/dL [facility] Work Phone: Urea nitrogen/Creatinine (Bld) [Mass ratio]12[facility] Work Phone: [facility] Work Phone: basic Metabolic Profon 01-10-2021(cont.)NormalOhio State Harding HospitalComment on above:Result Comment: Average GFR for 70 or more years old: 75 mL/min/1.73sq m Chronic Kidney Disease: <60 mL/min/1.73sq m Kidney failure: <15 mL/min/1.73sq m eGFR calculated using average adult body mass. Additional eGFR calculator available at: http://www.Tipjoy/multiple_crcl_2012.htmPerformed By: #### ESA, BMP #### [facility] [address] [address] Testing Machine Operator: Darryl Granger MDAnion gap [Moles/Vol]7 mmol/LLow9-17[facility] HospitalComment on above:Performed By: #### ESA, BMP #### [facility] [address] [place] [address] Testing Machine Operator: Darryl Granger MDBUN/CRE Srycp12Rdlpta2-37Zjuex [facility] Comment on above:Performed By: #### ESA, BMP #### [facility] [address] [address] Testing Machine Operator: Darryl Granger MDCalcium [Mass/Vol]8.4 mg/dLLow8.6-10.4[facility] HospitalComment on above:Performed By: #### CDP, BMP #### [facility] [address] [address] Testing Machine Operator: FRANKIE Parkhloride [Moles/Vol]106 mmol/TTtafvy79-141Ndlji Alonzo HospitalComment on above:Performed By: #### CDP, BMP #### [facility] [address] [place] [address] Testing Machine Operator: FRANKIE ParkO2 [Moles/Vol]22 mmol/DNserbv74-53Bhttj [facility] HospitalComment on above:Performed By: #### CDP, BMP #### [facility] [address] [place] [address] Testing Machine Operator: FRANKIE Parkreatinine [Mass/Vol]1.63 mg/dLHigh0.50-0.90[facility] HospitalComment on above:Performed By: #### CDP, BMP #### [facility] [address] [place] [address] Testing Machine Operator: Darryl Granger MDGFR, Amer38 mL/minLow>60[facility] HospitalComment on above:Performed By: #### CDP, BMP #### [facility] [address] [place] [address] Testing Machine Operator: Darryl Granger MDGFR,non Amer31 mL/minLow>60[facility] HospitalComment on above:Performed By: #### CDP, BMP #### [facility] [address] [place] [address] Testing Machine Operator: Darryl Granger MDGlucose [Mass/Vol]157 mg/aUWsuj01-99Wtvkg [facility]on HospitalComment on above:Performed By: #### CDP, BMP #### [facility] [address] [place], [place] [address] Testing Machine Operator: ABDIEL Parkotassium [Moles/Vol]5.4 mmol/LHigh3.7-5.3MercSalem Regional Medical Center HospitalComment on above:Performed By: #### CDP, BMP #### [facility] [address] [place], [place] [address] Testing Machine Operator: JANICE Parkodium [Moles/Vol]135 mmol/JFecmqk010-048NlyqwOhio State Harding HospitalComment on above:Performed By: #### CDP, BMP #### [facility] [address] [place], [place] [address] Testing Machine Operator: Darryl Granger MDUrea nitrogen [Mass/Vol]19 mg/dLNormal8-23[facility] HospitalComment on above:Performed By: #### CDP, BMP #### [facility] [address] [place] [address] Testing Machine Operator: JANICE Parktaging:NOT REPORTEDNoZanesville City Hospital Comment on above:Performed By: #### CDP, BMP #### [facility] [address] [place] [address] Testing Machine Operator: Darryl Granger [facility]IN[facility] Auto DifferentialOrdered By: Eugene Michelle on [id number] Bands #0.19[facility] [employer] Work Phone: absolute Eos #[facility] [employer] Work Phone: comment on above:CORRECTED ON 01/10 AT 0543: PREVIOUSLY REPORTED 0.00Absolute Immature GranulocyteNOT REPORTEDMercy Health Fairfield Hospital [employer] Work Phone: absolute Lymph #0.85LowMercy Health Fairfield Hospital [employer] Work Phone: comment on above:CORRECTED ON 01/10 AT 0543: PREVIOUSLY REPORTED 0.30Absolute Pleasants #0.66[facility] [employer] Work Phone: comment on above:CORRECTED ON 01/10 AT 0543: PREVIOUSLY REPORTED 0.71Idlvv6 %0 - 10 %[facility] HospitalGirls Guide To Work Phone: basophils (Bld) [#/Vol]0 - 2 %[facility] [employer] Work Phone: comment on above:CORRECTED ON 01/10 AT 0543: PREVIOUSLY REPORTED 0Basophils AbsoluteMerfake company 2.0 Phone: comment on above:CORRECTED ON 01/10 AT 0543: PREVIOUSLY REPORTED 0.00Differential TypeNOT REPORTEDChillicothe Va Medical Centerfake company 2.0 Phone: eosinophils %0 - 5 %Conmio Phone: comment on above:CORRECTED ON 01/10 AT 0543: PREVIOUSLY REPORTED 0Hematocrit (Bld) [Volume fraction]21.6 %Low36 - 46 % Conmio Phone: Hemoglobin.gastrointestinal spec 1 Ql (Stl)7.0 g/dL Critically low12.0 - 16.0 g/dLChillicothe Va Medical Centerfake company 2.0 Phone: Immature GranulocytesNOT REPORTED0 %Conmio Phone: Interpretation and review of laboratory results AbnormalChillicothe Va Medical Centerfake company 2.0 Phone: lymphocytes/100 WBC (Bld)9 %Low15 - 40 %Conmio Phone: comment on above:CORRECTED ON 01/10 AT 0543: PREVIOUSLY REPORTED 4MCH (RBC) [Entitic mass]27.8 pg26 - 34 pgChillicothe Va Medical Centerfake company 2.0 Phone: MCHC (RBC) [Mass/Vol]32.5 g/dL31 - 37 g/dLChillicothe Va Medical Centerfake company 2.0 Phone: MCV (RBC) [Entitic vol]85.5 fL80 - 100 fLChillicothe Va Medical Centerfake company 2.0 Phone: Monocytes/100 WBC (Bld)7 %4 - 8 %Conmio Phone: comment on above:CORRECTED ON 01/10 AT 0543: PREVIOUSLY REPORTED 5Morphology Pramod (Bld) [Interp]Manual Differential PerformedChillicothe Va Medical Centerfake company 2.0 Phone: NRBC AutomatedNOT REPORTEDper 100 WBCChillicothe Va Medical Centerfake company 2.0 Phone: platelet distribution width (Bld) [Ratio]15.9 %High 12.1 - 15.2 %[employer] Work Phone: platelet EstimateNOT REPORTEDMerJobpartners Work Phone: platelet mean volume (Bld) [Entitic vol]NOT REPORTED 6.0 - 12.0 fLPixifly Work Phone: Platelets (Bld) [#/Vol]151 10*3/uLMerJobpartners Work Phone: RBC (Bld) [#/Vol]2.53 10*6/uLLow4.0 - 5.2 m/uLMerJobpartners Work Phone: RBC (Bld) [#/Vol]NOT REPORTEDMerJobpartners Work Phone: Seg Nbichavyqqe98 %High47 - 75 %[employer] Work Phone: comment on above:CORRECTED ON 01/10 AT 0543: PREVIOUSLY REPORTED 91Segs Absolute7.70HighMerJobpartners Work Phone: comment on above:CORRECTED ON 01/10 AT 0543: PREVIOUSLY REPORTED 8.60WBC (Bld) [#/Vol]9.4 10*3/uLMerJobpartners Work Phone: WBC (Bld) [#/Vol]NOT REPORTEDChillicothe Va Medical CenterJobpartners Work Phone: MerJobpartners Work Phone: cBC auto differentialOrdered By: Isaias Lowry on [id number] Eos #0.00Chillicothe Va Medical CenterJobpartners Work Phone: Absolute Immature GranulocyteNOT REPORTEDMerJobpartners Work Phone: absolute Lymph #0.70LowMerJobpartners Work Phone: absolute Pleasants #1.20HighMerJobpartners Work Phone: Basophils (Bld) [#/Vol]0.00 10*3/Merfake company 2.0 Phone: basophils/100 WBC (Bld)0 %0 - 2 %[employer] Phone: differential TypeYESMercLaunchLab Phone: eosinophils/100 WBC (Bld)0 %0 - 5 %[employer] Phone: Hematocrit (Bld) [Volume fraction]24.9 %Low36 - 46 % [employer] Phone: Hemoglobin.gastrointestinal spec 1 Ql (Stl)8.3 g/dLLow 12.0 - 16.0 g/dLChillicothe Va Medical Centerfake company 2.0 Phone: Immature GranulocytesNOT REPORTED0 %Con[employer]io Phone: Interpretation and review of laboratory results AbnormalChillicothe Va Medical Centerfake company 2.0 Phone: lymphocytes/100 WBC (Bld)7 %Low15 - 40 %[employer] Phone: MCH (RBC) [Entitic mass]28.8 pg26 - 34 pgChillicothe Va Medical Centerfake company 2.0 Phone: MCHC (RBC) [Mass/Vol]33.5 g/dL31 - 37 g/dLChillicothe Va Medical Centerfake company 2.0 Phone: MCV (RBC) [Entitic vol]85.8 fL80 - 100 fLChillicothe Va Medical Centerfake company 2.0 Phone: Monocytes/100 WBC (Bld)12 %High4 - 8 %[employer] Phone: NRBC AutomatedNOT REPORTEDper 100 WBCChillicothe Va Medical Centerfake company 2.0 Phone: platelet distribution width (Bld) [Ratio]15.5 %High 12.1 - 15.2 %Conmio Phone: platelet EstimateNOT REPORTEDChillicothe Va Medical Centerfake company 2.0 Phone: platelet mean volume (Bld) [Entitic vol]NOT REPORTED 6.0 - 12.0 fLChillicothe Va Medical Centerfake company 2.0 Phone: Dlatelets (Bld) [#/Vol]135 10*3/uLLowChillicothe Va Medical CenterJobpartners Work Phone: RBC (Bld) [#/Vol]2.90 10*6/uLLow4.0 - 5.2 m/[place]fake company 2.0 Phone: RBC (Bld) [#/Vol]NOT REPORTEDChillicothe Va Medical Centerfake company 2.0 Phone: segmented neutrophils/100 WBC (Bld)81 %High47 - 75 % [facility] Phone: segs Absolute8.10HighChillicothe Va Medical Centerfake company 2.0 Phone: WBC (Bld) [#/Vol]10.0 10*3/[place]fake company 2.0 Phone: WBC (Bld) [#/Vol]NOT REPORTEDChillicothe Va Medical Centerfake company 2.0 Phone: [facility] Centerfake company 2.0 Phone: cBC with Diffon [id number]. Basophil0.00 k/uLNormal 0.0-0.2MSt. Mary's Medical CenterComment on above:Performed By: #### HH #### [facility] [address] [place] [address] Testing Machine Operator: [place] Park.Neutrophil (Seg)8.10 k/uLHigh2.5-7.0Ohio State Harding HospitalComment on above:Performed By: #### HH #### [facility] [address] [place] [address] Testing Machine Operator: James Park Diff PerformedYESNoZanesville City Hospital Comment on above:Performed By: #### HH #### [facility] [address] [place] [address] Testing Machine Operator: Darryl Sturtz, MDBasophils/100 WBC (Bld)0 %Normal0-2MSt. Mary's Medical CenterComment on above:Performed By: #### HH #### [facility] [address] [place], [place] [id number] Testing Machine Operator: LISE Parkosinophils (Bld) [#/Vol]0.00 10*3/uLNormal0.0-0.4 [facility] on above:Performed By: #### HH #### [facility] [address] [place] [address] Testing Machine Operator: LISE Parkosinophils/100 WBC (Bld)0 %Normal0-5Ohio State Harding HospitalComment on above:Performed By: #### HH #### [facility] [address] [place] [address] Testing Machine Operator: Darryl Granger MDErythrocyte distribution width (RBC) [Ratio]15.5 % High12.1-15.2MSt. Mary's Medical CenterComment on above:Performed By: #### HH #### [facility] [address] [place] [address] Testing Machine Operator: Darryl Granger MDHematocrit (Bld) [Volume fraction]24.9 %Nhs21-52 [facility] on above:Performed By: #### HH #### [facility] [address] [address] Testing Machine Operator: Darryl Granger MDHemoglobin (Bld) [Mass/Vol]8.3 g/dLLow12.0-16.0 [facility] on above:Performed By: #### HH #### [facility] [address] [place], [place] [id number] Testing Machine Operator: Darryl Granger MDLymphocytes (Bld) [#/Vol]0.70 10*3/uLLow1.0-4.8 [facility] on above:Performed By: #### HH #### [facility] [address] [place] [address] Testing Machine Operator: Constanza aPrkmphocytes/100 WBC (Bld)7 %Qek38-55VyjysOhio State Harding HospitalComment on above:Performed By: #### HH #### [facility] [address] [place] [address] Testing Machine Operator: KALYAN ParkCH (RBC) [Entitic mass]28.8 ahLfdyvb99-89BfgfmOhio State Harding HospitalComment on above:Performed By: #### HH #### [facility] [address] [address] Testing Machine Operator: ALANA ParkC (RBC) [Mass/Vol]33.5 g/rZNdrxbh33-27PsigfOhio State Harding HospitalComment on above:Performed By: #### HH #### [facility] [address] [place] [address] Testing Machine Operator: KALYAN ParkCV (RBC) [Entitic vol]85.8 qMVrkfet40-137AqzxrOhio State Harding HospitalComment on above:Performed By: #### HH #### [facility] [address] [address] Testing Machine Operator: KALYAN Parkonocytes (Bld) [#/Vol]1.20 10*3/uLHigh0.0-1.0 [facility] on above:Performed By: #### HH #### [facility] [address] [place] [address] Testing Machine Operator: KALYAN Parkonocytes/100 WBC (Bld)12 %High4-8Ohio State Harding HospitalComment on above:Performed By: #### HH #### [facility] [address] [place] [address] Testing Machine Operator: Samra Park (Seg)81 %Wibk39-38QynzySelect Medical Specialty Hospital - Cantonment on above:Performed By: #### HH #### [facility] [address] [place] [address] Testing Machine Operator: Cas Park (Bld) [#/Vol]135 10*3/mTTve894-715HteelOhio State Harding HospitalComment on above:Performed By: #### HH #### [facility] [address] [place], [place] [address] Testing Machine Operator: YAYA Park (Bld) [#/Vol]2.90 10*6/uLLow4.0-5.2MLancaster Municipal Hospital on above:Performed By: #### HH #### [facility] [address] [place], [place] [address] Testing Machine Operator: ANDER Park (Bld) [#/Vol]10.0 10*3/uLNormal3.5-11.0[facility] on above:Performed By: #### HH #### [facility] [address] [place], [place] [address] Testing Machine Operator: MDAbs. VivianImmLizetGranulocyteNOT REPORTEDNormal0.00-0.30 [facility] on above:Performed By: #### HH #### [facility] [address] [place] [address] Testing Machine Operator: Tami Park GranulocyteNOT TYPYBDBUQztlqz5SgwqlSt. [facility] Hospital on above:Performed By: #### HH #### [facility] [address] [place], [place] [id number] Testing Machine Operator: KALYAN ParkPVNOT REPORTEDNormal6.0-12.0Mercy Loudon HospitalComment on above:Performed By: #### HH #### [facility] [address] [place], [place] [address] Testing Machine Operator: EUGENIA Park AutomatedNOT REPORTEDNormalOhio State Harding HospitalComment on above:Performed By: #### HH #### [facility] [address] [place], [place] [id number] Testing Machine Operator: Raymond Park EstimateNOT REPORTEDNormalUniversity Hospitals Parma Medical Center HospitalComment on above:Performed By: #### HH #### [facility] [address] [place] [address] Testing Machine Operator: YAYA Park morphology finding Nom (Bld)NOT REPORTEDNormal [facility] HospitalComment on above:Performed By: #### HH #### [facility] [address] [place] [address] Testing Machine Operator: ANDER Park MorphologyNOT REPORTEDNormMercy Health Fairfield HospitalComment on above:Performed By: #### HH #### [facility] [address] [place], [place] [address] Testing Machine Operator: [place] Park. Bands0.19 k/uLNormal0.0-1.0Ohio State Harding HospitalComment on above:Performed By: #### ESA, BMP #### [facility] [address] [place] [address] Testing Machine Operator: MDAbs. Vivian BasophilNormal0.0-0.2MSt. Mary's Medical Center Comment on above:Result Comment: CORRECTED ON 01/10 AT 0543: PREVIOUSLY REPORTED 0.00Performed By: #### ESA, BMP #### [facility] [address] [place], [place] [address] Testing Machine Operator: MDAbs. Vivian EosinophilNormal0.0-0.4[facility] Comment on above:Result Comment: CORRECTED ON 01/10 AT 0543: PREVIOUSLY REPORTED 0.00Performed By: #### CDP, BMP #### [facility] [address] [place] [address] Testing Machine Operator: [place].Neutrophil (Seg)7.70 k/uLHigh2.5-7.0[facility] on above:Result Comment: CORRECTED ON 01/10 AT 0543: PREVIOUSLY REPORTED 8.60Performed By: #### CDP, BMP #### [facility] [address] [place] [address] Testing Machine Operator: Darryl Granger MDBands2 %Normal0-10Ohio State Harding HospitalComment on above:Performed By: #### CDP, BMP #### [facility] [address] [address] Testing Machine Operator: Delphine ParksophilNormal0-2MLancaster Municipal Hospital on above:Result Comment: CORRECTED ON 01/10 AT 0543: PREVIOUSLY REPORTED 0 Performed By: #### CDP, BMP #### [facility] [address] [place] [address] Testing Machine Operator: LISE ParkosinophilNormal0-5[facility] on above:Result Comment: CORRECTED ON 01/10 AT 0543: PREVIOUSLY REPORTED 0 Performed By: #### CDP, BMP #### [facility] [address] [place] [address] Testing Machine Operator: Ciaran Parkhocytes (Bld) [#/Vol]0.85 10*3/uLLow1.0-4.8 [facility] on above:Result Comment: CORRECTED ON 01/10 AT 0543: PREVIOUSLY REPORTED 0.30Performed By: #### CDP, BMP #### [facility] [address] [place], [place] [address] Testing Machine Operator: Darryl Granger MDLymphocytes/100 WBC (Bld)9 %Zsj68-48MpoxdSt. Elizabeth Hospital on above:Result Comment: CORRECTED ON 01/10 AT 0543: PREVIOUSLY REPORTED 4Performed By: #### CDP, BMP #### [facility] [address] [place], [place] [address] Testing Machine Operator: KALYAN Parkonocytes (Bld) [#/Vol]0.66 10*3/uLNormal0.0-1.0 [facility] on above:Result Comment: CORRECTED ON 01/10 AT 0543: PREVIOUSLY REPORTED 0.50Performed By: #### CDP, BMP #### [facility] [address] [address] Testing Machine Operator: KALYAN Parkonocytes/100 WBC (Bld)7 %Normal4-8[facility] on above:Result Comment: CORRECTED ON 01/10 AT 0543: PREVIOUSLY REPORTED 5Performed By: #### CDP, BMP #### [facility] [address] [place] [address] Testing Machine Operator: KALYAN Parkorphology Pramod (Bld) [Interp]Manual Differential PerformedNoKettering Health Troy on above:Performed By: #### CDP, BMP #### [facility] [address] [place], [place] [address] Testing Machine Operator: Darryl Granger MDNeutrophil (Seg)82 %Inag73-57UcrqgSt. Elizabeth Hospital on above:Result Comment: CORRECTED ON 01/10 AT 0543: PREVIOUSLY REPORTED 91Performed By: #### CDP, BMP #### [facility] [address] [place] [address] Testing Machine Operator: Darryl Granger MDErythrocyte distribution width (RBC) [Ratio]15.9 % High12.1-15.2Mercy Alonzo HospitalComment on above:Performed By: #### CDP, BMP #### [facility] [address] [address] Testing Machine Operator: Darryl Granger MDHematocrit (Bld) [Volume fraction]21.6 %Jiy46-20 [facility] HospitalCommclaren bay special care hospital on above:Performed By: #### CDP, BMP #### [facility] [address] [address] Testing Machine Operator: Darryl Granger MDHemoglobin (Bld) [Mass/Vol]7.0 g/dLCritically low 12.0-16.0[facility] Hard[facility] HospitalCommclaren bay special care hospital on above:Performed By: #### CDP, BMP #### [facility] [address] [address] Testing Machine Operator: KALYAN ParkCH (RBC) [Entitic mass]27.8 ulCmbjqn66-88XkiozOhio State Harding HospitalComment on above:Performed By: #### ESA, BMP #### [facility] [address] [place] [address] Testing Machine Operator: ALANA ParkC (RBC) [Mass/Vol]32.5 g/aRBbttwi50-42SkcezSt. Elizabeth Hospital on above:Performed By: #### ESA, BMP #### [facility] [address] [address] Testing Machine Operator: KALYAN ParkCV (RBC) [Entitic vol]85.5 qBEdvbpu52-110QvsxcOhio State Harding HospitalCommclaren bay special care hospital on above:Performed By: #### CDP, BMP #### [facility] [address] [address] Testing Machine Operator: ABDIEL Parklatelets (Bld) [#/Vol]151 10*3/fLUvvkzk455-861 [facility] HospitalComment on above:Performed By: #### CDP, BMP #### [facility] [address] [place] [address] Testing Machine Operator: YAYA Park ([facility]) [#/Vol]2.53 10*6/uLLow4.0-5.2MSt. Mary's Medical CenterComment on above:Performed By: #### CDP, BMP #### [facility] [address] [address] Testing Machine Operator: ANDER Park ([facility]) [#/Vol]9.4 10*3/uLNormal3.5-11.0[facility] Hard[facility] HospitalComment on above:Performed By: #### CDP, BMP #### [facility] [address] [place] [address] Testing Machine Operator: MDAbs. VivianImm.GranulocyteNOT REPORTEDNormal0.00-0.30 [facility] HospitalComment on above:Performed By: #### CDP, BMP #### [facility] [address] [place] [address] Testing Machine Operator: James Park Diff PerformedNOT REPORTEDNormalOhio State Harding HospitalComment on above:Performed By: #### CDP, BMP #### [facility] [address] [place], [place] [address] Testing Machine Operator: Tami Park GranulocyteNOT CDJQITWSLkulrh6GecmnOhio State Harding HospitalComment on above:Performed By: #### CDP, BMP #### [facility] [address] [place], [place] [address] Testing Machine Operator: KALYAN ParkPVNOT REPORTEDNormal6.0-12.0[facility] HospitalComment on above:Performed By: #### CDP, BMP #### [facility] [address] [place], [place] [address] Testing Machine Operator: EUGENIA Park AutomatedNOT REPORTEDNormalUniversity Hospitals Parma Medical Center HospitalComment on above:Performed By: #### CDP, BMP #### [facility] [address] [place] [address] Testing Machine Operator: Tee Parklet EstimateNOT REPORTEDNormalUniversity Hospitals Parma Medical Center HospitalComment on above:Performed By: #### CDP, BMP #### [facility] [address] [place] [address] Testing Machine Operator: YAYA Park morphology finding Nom (Bld)NOT REPORTEDNormal [facility] HospitalComment on above:Performed By: #### ESA, BMP #### [facility] [address] [place] [address] Testing Machine Operator: ANDER Park MorphologyNOT REPORTEDNormOhioHealth Southeastern Medical Center HospitalComment on above:Performed By: #### ESA, BMP #### [facility] [address] [place] [address] Testing Machine Operator: Darryl Granger MDType + Screenon [id number] + ScreenSample Expiration 01/12/2021,7633 Arm Band Number NOT REPORTED ABO/Rh(D) A NEGATIVE Antibody Screen NEGATIVE Unit Number [id number] Blood Component Type Leukocyte Reduced Red Cell Unit Division 00 Status of Unit TRANSFUSED Transfusion Status OK TO TRANSFUSE Crossmatch Result COMPATIBLE Unit Number [id number] Blood Component Type Leukocyte Reduced Red Cell Unit Division 00 Status of Unit TRANSFUSED Transfusion Status OK TO TRANSFUSE Crossmatch Result COMPATIBLENormOhioHealth Southeastern Medical Center HospitalComment on above: Performed By: #### ESA, BMPX #### [facility] [address] [place] [address] Testing Machine Operator: SAMUEL ParkR ABDOMEN (KUB) (SINGLE AP VIEW)on [id number] ABDOMEN (KUB) (SINGLE AP VIEW)EXAM: XR ABDOMEN (KUB) (SINGLE AP VIEW) HISTORY: [...] Signed by: Gerhard Hamilton MD 01/10/21 Final resultNoZanesville City HospitalXR ABDOMEN (KUB) (SINGLE AP VIEW)Ordered By: Isaias Lowry on [id number] bowel gas pattern.Conmio Phone: eXAM: XR ABDOMEN (KUB) (SINGLE AP VIEW) HISTORY: [...] of free intraperitoneal air. Cholecystectomy clips are present.[employer]mio Phone: emichael yoly Incoming Radiant Results From [employer] - 01/10/2021 3:51 PM EDT EXAM: XR [...] are present. IMPRESSION: Nonobstructive bowel gas pattern. [employer]io Phone: [facility] Centerfake company 2.0 Phone: basic Metab w/rfx MGon 01-09-2021(cont.)[facility] Ironton CampusComment on above:Result Comment: Average GFR for 70 or more years old: 75 mL/min/1.73sq m Chronic Kidney Disease: <60 mL/min/1.73sq m Kidney failure: <15 mL/min/1.73sq m eGFR calculated using average adult body mass. Additional eGFR calculator available at: http://www.[employer]/multiple_crcl_2012.htmPerformed By: #### CDP, BMPX #### [facility] [address] [address] Testing Machine Operator: Darryl Granger MDAnion gap [Moles/Vol]6 mmol/LLow9-17[facility] HospitalComment on above:Performed By: #### CDP, BMPX #### [facility] [address] [address] Testing Machine Operator: Darryl Granger MDBUN/CRE Zsyjk32Mzgpah6-61Lebvm [facility] Comment on above:Performed By: #### CDP, BMPX #### [facility] [address] [place] [address] Testing Machine Operator: FRANKIE Parkalcium [Mass/Vol]8.9 mg/dLNormal8.6-10.4[facility] HospitalComment on above:Performed By: #### CDP, BMPX #### [facility] [address] [place] [address] Testing Machine Operator: FRANKIE Parkhloride [Moles/Vol]102 mmol/YVslzzq30-780HpqpyOhio State Harding HospitalComment on above:Performed By: #### CDP, BMPX #### [facility] [address] [place] [address] Testing Machine Operator: Darryl Granger MDCO2 [Moles/Vol]28 mmol/MVbjexp85-68GpbowOhio State Harding HospitalComment on above:Performed By: #### CDP, BMPX #### [facility] [address] [place], [place] [address] Testing Machine Operator: FRANKIE Parkreatinine [Mass/Vol]1.45 mg/dLHigh0.50-0.90[facility] Hard[facility] HospitalComment on above:Performed By: #### CDP, BMPX #### [facility] [address] [address] Testing Machine Operator: Darryl Granger MDGFR, Amer43 mL/minLow>60[facility] HospitalComment on above:Performed By: #### CDP, BMPX #### [facility] [address] [place] [address] Testing Machine Operator: Darryl Granger MDGFR,non Amer36 mL/minLow>60[facility] HospitalComment on above:Performed By: #### CDP, BMPX #### [facility] [address] [address] Testing Machine Operator: Darryl Granger MDGlucose [Mass/Vol]129 mg/mNYirp65-23Dqvgm [facility]oudon HospitalComment on above:Performed By: #### CDP, BMPX #### [facility] [address] [place] [address] Testing Machine Operator: ABDIEL Parkotassium [Moles/Vol]6.1 mmol/LCritically high 3.7-5.3MTriHealth Bethesda Butler Hospital HospitalComment on above:Performed By: #### CDP, BMPX #### [facility] [address] [address] Testing Machine Operator: JANICE Parkodium [Moles/Vol]136 mmol/ODflhiu884-320Iqunc [facility]ard HospitalComment on above:Performed By: #### CDP, BMPX #### [facility] [address] [address] Testing Machine Operator: Darryl Granger MDUrea nitrogen [Mass/Vol]17 mg/dLNormal8-23[facility] HospitalComment on above:Performed By: #### CDP, BMPX #### [facility] [address] [place] [address] Testing Machine Operator: JANICE Parktaging:NOT REPORTEDNoZanesville City Hospital Comment on above:Performed By: #### CDP, BMPX #### [facility] [address] [place] [address] Testing Machine Operator: Darryl Granger MDNew [facility] Metabolic PanelOrdered By: Isaias Lowry on [id number] gap [Moles/Vol]6 mmol/LLow9 - 17 mmol/LMercy Housing.com Work Phone: calcium [Mass/Vol]8.3 mg/dLLow8.6 - 10.4 mg/dLChillicothe Va Medical CenterJobpartners Work Phone: chloride [Moles/Vol]103 mmol/L98 - 107 mmol/LMercy Housing.com Work Phone: cO2 [Moles/Vol]26 mmol/L20 - 31 mmol/LMercy Housing.com Work Phone: creatinine [Mass/Vol]1.38 mg/dLHigh0.50 - 0.90 mg/dL Conmio Phone: GFR Zhvpcefs22 mL/minLow>60[employer] Work Phone: GFR Non- Omznatze28 mL/minLow>60Mer [employer] Work Phone: GFR/1.73 sq M.predicted MDRD (S/P/Bld) [Vol rate/Area] [facility] HospitalLaunch[facility] Phone: comment on above:Average GFR for 70 or more years old: 75 mL/min/1.73sq m Chronic Kidney Disease: <60 mL/min/1.73sq m Kidney failure: <15 mL/min/1.73sq m eGFR calculated using average adult body mass. Additional eGFR calculator available at: http://www.[employer]/multiple_crcl_2012.htm GFR/1.73 sq M.predicted MDRD (S/P/Bld) [Vol rate/Area]NOT REPORTEDChillicothe Va Medical Centerfake company 2.0 Phone: Glucose [Mass/Vol]131 mg/cEHnyf34 - 99 mg/dLChillicothe Va Medical Centerfake company 2.0 Phone: Interpretation and review of laboratory results AbnormalChillicothe Va Medical Centerfake company 2.0 Phone: potassium [Moles/Vol]5.0 mmol/L3.7 - 5.3 mmol/LMercy Housing.com Work Phone: sodium [Moles/Vol]135 mmol/L135 - 144 mmol/LMparkwood hospitaly [employer] Phone: Urea nitrogen (BldV) [Mass/Vol]16 mg/dL8 - 23 mg/dL [facility] HospitalLaunch[facility] Phone: Urea nitrogen/Creatinine (Bld) [Mass ratio]12[facility] Centerfake company 2.0 Phone: [facility] Centerfake company 2.0 Phone: basic Metabolic Panel w/ Reflex to MGOrdered By: Isaias Lowry on [id number] gap [Moles/Vol]6 mmol/LLow9 - 17 mmol/LMparkwood hospitaly [employer] Phone: calcium [Mass/Vol]8.9 mg/dL8.6 - 10.4 mg/dLChillicothe Va Medical Centerfake company 2.0 Phone: chloride [Moles/Vol]102 mmol/L98 - 107 mmol/LMWhiteHat Securityy Housing.com Work Phone: cO2 [Moles/Vol]28 mmol/L20 - 31 mmol/LMBuzzoole Phone: creatinine [Mass/Vol]1.45 mg/dLHigh0.50 - 0.90 mg/dL [facility]Launch[facility] Phone: GFR Luqmmyhj87 mL/minLow>60[facility] Centerfake company 2.0 Phone: GFR Non- Ndutpgme17 mL/minLow>60[facility] Centerfake company 2.0 Phone: GFR/1.73 sq M.predicted MDRD (S/P/Bld) [Vol rate/Area] [facility]Launch[facility] Phone: comment on above:Average GFR for 70 or more years old: 75 mL/min/1.73sq m Chronic Kidney Disease: <60 mL/min/1.73sq m Kidney failure: <15 mL/min/1.73sq m eGFR calculated using average adult body mass. Additional eGFR calculator available at: http://www.[employer]/multiple_crcl_2012.htm GFR/1.73 sq M.predicted MDRD (S/P/Bld) [Vol rate/Area]NOT REPORTEDMercy Health Fairfield Hospital [employer] Phone: Glucose [Mass/Vol]129 mg/vFOvhw17 - 99 mg/dLChillicothe Va Medical Centerfake company 2.0 Phone: Interpretation and review of laboratory results AbnormalChillicothe Va Medical Centerfake company 2.0 Phone: potassium [Moles/Vol]6.1 mmol/LCritically high3.7 - 5.3 mmol/LMcity hospital [employer] Phone: sodium [Moles/Vol]136 mmol/L135 - 144 mmol/LMcity hospital [employer] Phone: Urea nitrogen (BldV) [Mass/Vol]17 mg/dL8 - 23 mg/dL [facility] [employer] Phone: Urea nitrogen/Creatinine (Bld) [Mass ratio]12[facility] Centerfake company 2.0 Phone: [facility] Centerfake company 2.0 Phone: basic Metabolic Profon 01-09-2021(cont.)NormalOhio State Harding HospitalComment on above:Result Comment: Average GFR for 70 or more years old: 75 mL/min/1.73sq m Chronic Kidney Disease: <60 mL/min/1.73sq m Kidney failure: <15 mL/min/1.73sq m eGFR calculated using average adult body mass. Additional eGFR calculator available at: http://www.[employer].Rooster Teeth/multiple_crcl_2012.htmPerformed By: #### CDP, BMPX #### [facility] [address] [place] [address] Testing Machine Operator: Darryl Granger MDAnion gap [Moles/Vol]6 mmol/LLow9-17Ohio State Harding HospitalComment on above:Performed By: #### CDP, BMPX #### [facility] [address] [place] [address] Testing Machine Operator: Darryl Granger MDBUN/CRE Weoyh62Wlxule2-79Lulyw [facility] Comment on above:Performed By: #### CDP, BMPX #### [facility] [address] [place] [address] Testing Machine Operator: FRANKIE Parkalcium [Mass/Vol]8.3 mg/dLLow8.6-10.4Ohio State Harding HospitalComment on above:Performed By: #### CDP, BMPX #### [facility] [address] [place] [address] Testing Machine Operator: FRANKIE Parkhloride [Moles/Vol]103 mmol/QOizblp75-854EbpfkOhio State Harding HospitalComment on above:Performed By: #### CDP, BMPX #### [facility] [address] [place] [address] Testing Machine Operator: Darryl Granger MDCO2 [Moles/Vol]26 mmol/BFvsxmx15-80RhpwtOhio State Harding HospitalComment on above:Performed By: #### CDP, BMPX #### [facility] [address] [place] [address] Testing Machine Operator: FRANKIE Parkreatinine [Mass/Vol]1.38 mg/dLHigh0.50-0.90[facility] HospitalComment on above:Performed By: #### CDP, BMPX #### [facility] [address] [address] Testing Machine Operator: Darryl Granger MDGFR, Amer46 mL/minLow>60[facility] HospitalComment on above:Performed By: #### CDP, BMPX #### [facility] [address] [place] [address] Testing Machine Operator: Darryl Granger MDGFR,non Amer38 mL/minLow>60[facility] HospitalComment on above:Performed By: #### CDP, BMPX #### [facility] [address] [place] [address] Testing Machine Operator: Darryl Granger MDGlucose [Mass/Vol]131 mg/fJNlxo55-53Vnayi Loudon HospitalComment on above:Performed By: #### CDP, BMPX #### [facility] [address] [address] Testing Machine Operator: ABDIEL Parkotassium [Moles/Vol]5.0 mmol/LNormal3.7-5.3MTriHealth Bethesda Butler Hospital HospitalComment on above:Performed By: #### CDP, BMPX #### [facility] [address] [address] Testing Machine Operator: Darryl Granger MDSodium [Moles/Vol]135 mmol/ROptczk148-993Idmzk Willard HospitalComment on above:Performed By: #### CDP, BMPX #### [facility] [address] [address] Testing Machine Operator: Darryl Granger MDUrea nitrogen [Mass/Vol]16 mg/dLNormal8-23[facility] HospitalComment on above:Performed By: #### CDP, BMPX #### [facility] [address] [address] Testing Machine Operator: JANICE Parktaging:NOT REPORTEDNormalOhio State Harding Hospital Comment on above:Performed By: #### CDP, BMPX #### [facility] [address] [place] [address] Testing Machine Operator: Darryl Granger [facility] auto differentialOrdered By: Isaias Lowry on 27-23-2518Koalestx Eos #0.00[facility] Centerfake company 2.0 Phone: absolute Immature GranulocyteNOT REPORTEDChillicothe Va Medical Centerfake company 2.0 Phone: absolute Lymph #1.30[facility] Centerfake company 2.0 Phone: absolute Pleasants #0.70[facility] Centerfake company 2.0 Phone: basophils (Bld) [#/Vol]0.00 10*3/uLChillicothe Va Medical Centerfake company 2.0 Phone: basophils/100 WBC (Bld)0 %0 - 2 %Conmio Phone: differential TypeYESMercLaunchLab Phone: eosinophils/100 WBC (Bld)0 %0 - 5 %Conmio Phone: Hematocrit (Bld) [Volume fraction]28.6 %Low36 - 46 % Conmio Phone: Hemoglobin.gastrointestinal spec 1 Ql (Stl)9.4 g/dLLow 12.0 - 16.0 g/dLChillicothe Va Medical Centerfake company 2.0 Phone: Immature GranulocytesNOT REPORTED0 %Conmio Phone: Interpretation and review of laboratory results AbnormalChillicothe Va Medical Centerfake company 2.0 Phone: lymphocytes/100 WBC (Bld)14 %Low15 - 40 %Conmio Phone: MCH (RBC) [Entitic mass]27.7 pg26 - 34 pgConmio Phone: MCHC (RBC) [Mass/Vol]32.8 g/dL31 - 37 g/dLChillicothe Va Medical CenterJobpartners Work Phone: [phone] (RBC) [Entitic vol]84.4 fL80 - 100 fLChillicothe Va Medical Centerfake company 2.0 Phone: Monocytes/100 WBC (Bld)7 %4 - 8 %Conmio Phone: NRBC AutomatedNOT REPORTEDper 100 WBCChillicothe Va Medical Centerfake company 2.0 Phone: Klatelet distribution width (Bld) [Ratio]15.2 %12.1 - 15.2 %Conmio Phone: Elatelet EstimateNOT REPORTEDChillicothe Va Medical Centerfake company 2.0 Phone: Platelet mean volume (Bld) [Entitic vol]NOT REPORTED 6.0 - 12.0 fLChillicothe Va Medical Centerfake company 2.0 Phone: Platelets (Bld) [#/Vol]178 10*3/Need Work Phone: [phone] (Bld) [#/Vol]3.39 10*6/uLLow4.0 - 5.2 m/uLConmio Phone: RBC (Bld) [#/Vol]NOT REPORTEDChillicothe Va Medical Centerfake company 2.0 Phone: Segmented neutrophils/100 WBC (Bld)79 %High47 - 75 % Con[employer]io Phone: Segs Absolute7.80HighChillicothe Va Medical Centerfake company 2.0 Phone: [phone] (Bld) [#/Vol]9.8 10*3/uLConmio Phone: [phone] (Bld) [#/Vol]NOT REPORTEDChillicothe Va Medical Centerfake company 2.0 Phone: [facility] CenterJobpartners Work Phone: CBC with Diffon [phone]. Basophil0.00 k/uLNormal 0.0-0.2MSt. Mary's Medical CenterComment on above:Performed By: #### CDP, BMPX #### [facility] [address] [address] Testing Machine Operator: Phoenix Park.Neutrophil (Seg)7.80 k/uLHigh2.5-7.0Ohio [facility] Harding HospitalComment on above:Performed By: #### CDP, BMPX #### [facility] [address] [place] [address] Testing Machine Operator: James Park PerformedYESSt. Mary's [facility] Comment on above:Performed By: #### CDP, BMPX #### [facility] [address] [place] [address] Testing Machine Operator: Darryl Granger MDBasophils/100 WBC (Bld)0 %Normal0-2MSt. Mary's Medical CenterComment on above:Performed By: #### ESA, BMPX #### [facility] [address] [place] [address] Testing Machine Operator: Darryl Granger MDEosinophils (Bld) [#/Vol]0.00 10*3/uLNormal0.0-0.4 [facility] HospitalComment on above:Performed By: #### CDP, BMPX #### [facility] [address] [place] [address] Testing Machine Operator: LISE Parkosinophils/100 WBC (Bld)0 %Normal0-5Ohio State Harding HospitalComment on above:Performed By: #### CDP, BMPX #### [facility] [address] [address] Testing Machine Operator: Darryl Granger MDErythrocyte distribution width (RBC) [Ratio]15.2 % Mfgoxw98.1-15.2Mercy Loudon HospitalComment on above:Performed By: #### CDP, BMPX #### [facility] [address] [address] Testing Machine Operator: Darryl Granger MDHematocrit (Bld) [Volume fraction]28.6 %Ayq85-09 [facility] on above:Performed By: #### CDP, BMPX #### [facility] [address] [address] Testing Machine Operator: Darryl Granger MDHemoglobin (Bld) [Mass/Vol]9.4 g/dLLow12.0-16.0 [facility] on above:Performed By: #### CDP, BMPX #### [facility] [address] [place] [address] Testing Machine Operator: Darryl Granger MDLymphocytes (Bld) [#/Vol]1.30 10*3/uLNormal1.0-4.8 [facility] on above:Performed By: #### CDP, BMPX #### [facility] [address] [address] Testing Machine Operator: Darryl Granger MDLymphocytes/100 WBC (Bld)14 %Ypc41-68XmmysSt. Elizabeth Hospital on above:Performed By: #### CDP, BMPX #### [facility] [address] [place] [address] Testing Machine Operator: KALYAN ParkCH (RBC) [Entitic mass]27.7 zgPoyuff56-81FudawOhio State Harding HospitalCommclaren bay special care hospital on above:Performed By: #### CDP, BMPX #### [facility] [address] [address] Testing Machine Operator: KALYAN ParkCHC (RBC) [Mass/Vol]32.8 g/sUBvkipc67-88YqvupOhio State Harding HospitalComment on above:Performed By: #### CDP, BMPX #### [facility] [address] [place], [place] [address] (340) Testing Machine Operator: KALYAN ParkCV (RBC) [Entitic vol]84.4 yPOhccua89-313UmekfOhio State Harding HospitalCommclaren bay special care hospital on above:Performed By: #### CDP, BMPX #### [facility] [address] [place], [place] [address] (646) Testing Machine Operator: KALYAN Parkonocytes (Bld) [#/Vol]0.70 10*3/uLNormal0.0-1.0 [facility] on above:Performed By: #### CDP, BMPX #### [facility] [address] [place] [address] Testing Machine Operator: KALYAN Parkonocytes/100 WBC (Bld)7 %Normal4-8Ohio State Harding HospitalCommclaren bay special care hospital on above:Performed By: #### CDP, BMPX #### [facility] [address] [place] [address] Testing Machine Operator: Alexandria Parkophil (Seg)79 %Zxvk46-08HfkscOhio State Harding HospitalComment on above:Performed By: #### CDP, BMPX #### [facility] [address] [place] [address] Testing Machine Operator: Natacha Parktelets (Bld) [#/Vol]178 10*3/eNSlszmw427-144 [facility] HospitalCommclaren bay special care hospital on above:Performed By: #### CDP, BMPX #### [facility] [address] [place] [address] Testing Machine Operator: EN ParkBC (Bld) [#/Vol]3.39 10*6/uLLow4.0-5.2MSt. Mary's Medical CenterCommclaren bay special care hospital on above:Performed By: #### CDP, BMPX #### [facility] [address] [place] [address] Testing Machine Operator: ANDER Park (Bld) [#/Vol]9.8 10*3/uLNormal3.5-11.0Ohio [facility] Harding HospitalComment on above:Performed By: #### CDP, BMPX #### [facility] [address] [place] [address] Testing Machine Operator: [place] Park.Imm.GranulocyteNOT REPORTEDNormal0.00-0.30 [facility] HospitalComment on above:Performed By: #### CDP, BMPX #### [facility] [address] [place] [address] Testing Machine Operator: Tami Park GranulocyteNOT XWHYOEKGEunbfu8Uzpmt Willard HospitalComment on above:Performed By: #### CDP, BMPX #### [facility] [address] [place] [address] Testing Machine Operator: KALYAN ParkPVNOT REPORTEDNormal6.0-12.0[facility] Hard[facility] HospitalComment on above:Performed By: #### CDP, BMPX #### [facility] [address] [place] [address] Testing Machine Operator: EUGENIA Park AutomatedNOT REPORTEDNormalOhio State Harding HospitalComment on above:Performed By: #### CDP, BMPX #### [facility] [address] [place] [address] Testing Machine Operator: Tee Parklet EstimateNOT REPORTEDNormalOhio State Harding HospitalComment on above:Performed By: #### CDP, BMPX #### [facility] [address] [place] [address] Testing Machine Operator: YAYA Park morphology finding Nom (Bld)NOT REPORTEDNormal [facility] HospitalComment on above:Performed By: #### CDP, BMPX #### [facility] [address] [place] [address] Testing Machine Operator: ANDER aPrk MorphologyNOT REPORTEDNormalSt. Elizabeth Hospital on above:Performed By: #### CDP, BMPX #### [facility] [address] [place] [address] Testing Machine Operator: FRANKIE ParkOVID-19, RapidOrdered By: Isaias Lowry on [id number]-CoV-2 (COVID-19) RNA MARTIN+probe Ql (Unsp spec)Not detectedNot DetectedMercy Health Fairfield Hospital QM Power Phone: comment on above: Rapid NAAT: The specimen is [...] management decisions. Fact sheet for Healthcare Providers: https://www.fda.gov/media/720085/download Fact sheet for Patients: https://www.fda.gov/media/041614/download Methodology: Isothermal Nucleic Acid Amplification Specimen Description.NASOPHARYNGEAL SWABMercy Health Fairfield Hospital Housing.[employer] Work Phone: [facility] CenterJobpartners Work Phone: eKG 12 LeadOrdered By: Jaclyn Calabrese on 01-09-2021 Atrial Iuxs32ZZQRuukk [employer] Work Phone: p Fhyy73vytuqdbUbvrd [employer] Work Phone: p-R Omeuudkx995 msMcity hospital [employer] Work Phone: Q-T Vendyzvm209 [facility] [employer] Work Phone: QRS Wbopyxbs70 [facility] [employer] Work Phone: QTc Calculation (Bazett)481 [facility] [employer] Work Phone: r Zjrt33rbgvqozRpbzy [employer] Work Phone: T Kkps28xeibictXimjo [employer] Work Phone: Ventricular Ipjz05KYXUulff [employer] Work Phone: Normal sinus rhythm Normal ECG [facility] HospitalLaunch[facility] Phone: eSamaria rodriguez Incoming Ekg Results From [employer] - 01/09/2021 6:35 AM EDT Normal sinus rhythm Normal ECGMercy Health Fairfield Hospital QM Power Phone: [facility] QM Power Phone: [place] LESS THAN 1 HOURon [id number] LESS THAN 1 HOUR Radiology exam is complete. No Radiologist dictation. Please follow up with ordering provider. Final resultNormalOhioHealth LESS THAN 1 HOUROrdered By: Eugene Michelle on [id number] exam is complete. No Radiologist dictation. Please follow up with ordering provider.Conmio Phone: [facility] Centerfake company 2.0 Phone: Microscopic UrinalysisOrdered By: Isaias Lowry on 01-09-2021-Conmio Phone: amorphous, UANOT REPORTEDNoneMemercy health west hospital Housing.com Work Phone: bacteria, UA1+AbnormalNonCleveland Clinic [facility] [employer] Work Phone: casts UA2 TO 5 HYALINE/LPFMercy Health Work Phone: casts UA2 TO 5 FINE GRANULAR/LPFMercy Health Work Phone: crystals, UANOT REPORTEDNone /HPFMercy Health Work Phone: Kpithelial Cells UA0 TO 2/HPFMercy Health Work Phone: Interpretation and review of laboratory results AbnormalMercy Health Work Phone: Mucus, UARAREAbnormalNoneMey Health Work Phone: Other Observations UANOT REPORTEDAbnormalNOT REQ.[facility] Work Phone: IBC, UA5 TO 10[facility] Work Phone: Venal Epithelial, UA2 TO 50 /HPFMercy Health Work Phone: Trichomonas, UANOT REPORTEDNoneMercy Health Work Phone: WBC, UA5 TO 100 /HPFMer Health Work Phone: Yeast, UANOT REPORTEDNoneMey Health Work Phone: [facility] Work Phone: [id number]-[id number] [id number]-CoV-2 (COVID-19) RNA MARTIN+probe Ql (Unsp spec)Not detectedNormalCleveland Clinic Fairview HospitalComment on above:Result Comment: Rapid NAAT: The specimen is NEGATIVE [...] management decisions. Fact sheet for Healthcare Providers: https://www.fda.gov/media/900848/download Fact sheet for Patients: https://www.fda.gov/media/006195/download Methodology: Isothermal Nucleic Acid AmplificationPerformed By: #### COVRB #### [facility] [address] [place] [address] Testing Machine Operator: AUGUSTUS Park w/Reflex Cultureon [id number], SemiQt,UrNegativeNormalNEGOhio State Harding HospitalComment on above:Performed By: #### CDP, BMPX #### [facility] [address] [place] [address] Testing Machine Operator: Demetrius Park, Urine2+AbnormalTuscarawas Hospital Comment on above:Performed By: #### CDP, BMPX #### [facility] [address] [place] [address] Testing Machine Operator: Kellen Park ()HAZYAbnormalCLEThe University of [facility] Center Comment on above:Performed By: #### CDP, BMPX #### [facility] [address] [place] [address] Testing Machine Operator: Alo Park (YELLOWSt. Charles Hospital Comment on above:Performed By: #### CDP, BMPX #### [facility] [address] [place] [address] Testing Machine Operator: Lillie ParkmentSt. Mary's Medical Center, Ironton CampusComment on above:Performed By: #### CDP, BMPX #### [facility] [address] [place] [address] Testing Machine Operator: Marcus Park Ql (U)NegativeNormalTuscarawas HospitalComment on above:Performed By: #### CDP, BMPX #### [facility] [address] [place], [place] [address] Testing Machine Operator: Darryl Granger MDKetones Ql (U)NegativeNormalNEGOhio State Harding HospitalComment on above:Performed By: #### CDP, BMPX #### [facility] [address] [place] [address] Testing Machine Operator: Darryl Granger MDLeukocyte esterase Test strip Ql (U)NegativeNormal NEGOhio State Harding HospitalComment on above:Performed By: #### CDP, BMPX #### [facility] [address] [place] [address] Testing Machine Operator: Jorge Parktrite,UrNegativeCleveland Clinic Luther[facility] Hospital Comment on above:Performed By: #### CDP, BMPX #### [facility] [address] [place] [address] Testing Machine Operator: ABDIEL Park,Ur5.6Lajlem7.0-8.0[facility] Hard[facility] HospitalComment on above:Performed By: #### CDP, BMPX #### [facility] [address] [place] [address] Testing Machine Operator: Gopal Park Ql (U)1+AbnormalNEGOhio State Harding Hospital Comment on above:Performed By: #### CDP, BMPX #### [facility] [address] [place] [address] Testing Machine Operator: JANICE Parkpec. Reading,Ur1.401Xxtgmi2.005-1.030Ohio [facility] Harding HospitalComment on above:Performed By: #### CDP, BMPX #### [facility] [address] [place] [address] Testing Machine Operator: Papa Parkbilinogen,UrNormalNormalNORMOhio State Harding HospitalComment on above:Performed By: #### CDP, BMPX #### [facility] [address] [place] [address] Testing Machine Operator: Darryl Granger MDUrinalysis Reflex to CultureOrdered By: Isaias Lowry on 19-28-4009Wbladfpya UrineNegativeNEGATIVEMercy Health Work Phone: color, UAYELLOWYELLOWMercy Health Work Phone: Glucose, UrNegativeNEGATIVEMercy Health Fairfield Hospital Health Work Phone: Interpretation and review of laboratory results AbnormalMer Health Work Phone: Ketones Ql (U)NegativeNEGATIVEMercy Health Fairfield Hospital Health Work Phone: leukocyte esterase Test strip Ql (U)NegativeNEGATIVE [facility] Work Phone: Nitrite, UrineNegativeNEGATIVEMercy Health Fairfield Hospital Health Work Phone: pH, UA5.0[facility] Work Phone: Jrotein, UA1+AbnormalNEGATIVEMer Health Work Phone: Zpecific Reading, UA1.025[facility] Work Phone: Turbidity UAHAZYAbnormalCLEARMercy Health Work Phone: Urinalysis CommentsMer Health Work Phone: Urine Hgb2+AbnormalNEGATIVEMercy Health Fairfield Hospital Health Work Phone: Urobilinogen, UrineNormalNormalMer Health Work Phone: [facility] Work Phone: Urinalysis,Microon 01-09-2021-----[facility]ont[facility] CampusComment on above:Performed By: #### HH #### [facility] [address] [place] [address] Testing Machine Operator: Darryl Granger MDBacteria1+AbnormalNONEMeWayne Hospital Comment on above:Performed By: #### HH #### [facility] [address] [place] [address] Testing Machine Operator: FRANKIE Parkasts2 TO 5NoZanesville City HospitalComment on above:Result Comment: HYALINE 2 TO 5 FINE GRANULARPerformed By: #### HH #### [facility] [address] [place] [address] Testing Machine Operator: Darryl Granger MDEpithelial cells LM Ql (Urine sed)0 TO 2Normal [facility] HospitalComment on above:Performed By: #### HH #### [facility] [address] [place] [address] Testing Machine Operator: Darryl Granger MDEpithelial, Renal2 TO 9Byimwn8Kdeqj51 Estrada StreetComment on above:Performed By: #### HH #### [facility] [address] [place] [address] Testing Machine Operator: Ashley Park StrandsRAREAbnormAdena Pike Medical CenterComment on above:Performed By: #### HH #### [facility] [address] [place], [place] 2[address] Testing Machine Operator: Darryl Granger MDUrine RBC's5 TO 88Oiogiu4-6KlptySt. Mary's Medical Center Comment on above:Performed By: #### HH #### [facility] [address] [place] [address] Testing Machine Operator: Darryl Granger MDUrine WBC's5 TO 74Psekrv5Tfdvs[address] Comment on above:Performed By: #### HH #### [facility] [address] [place], [place] [address] Testing Machine Operator: Shila Park sediment LM Ql (Urine sed)NOT REPORTED NormalThe University of Toledo Medical CenterComment on above:Performed By: #### HH #### [facility] [address] [place], [place] [address] Testing Machine Operator: Bekah Park LM Nom (Urine sed)NOT REPORTEDNormalNONE [facility] HospitalComment on above:Performed By: #### HH #### [facility] [address] [place], [place] [address] Testing Machine Operator: Sang Park ObservationsNOT REPORTEDNormalNREQOhio State Harding HospitalComment on above:Performed By: #### HH #### [facility] [address] [place], [place] [address] Testing Machine Operator: Brittny ParkonasBERTA REPORTEDNormalNONDayton Osteopathic HospitalComment on above:Performed By: #### HH #### [facility] [address] [place] [address] Testing Machine Operator: Braden ParkastBERTA REPORTEDNormalNONDayton Osteopathic Hospital Comment on above:Performed By: #### HH #### [facility] [address] [place] [address] Testing Machine Operator: John Park [id number] Coag (Bld) [Time]26.9 s Lqqmzm21.9-33.8Ohio [facility] Harding HospitalComment on above:Result Comment: IV Heparin Therapy Range: 62.0-94.0Performed By: #### CDP, BMPX #### [facility] [address] [place] [address] Testing Machine Operator: MELISSA ParkTOrdered By: Jaclyn Calabrese on 01-08-2021 aPTT Coag (Bld) [Time]26.9 [employer] Work Phone: comment on above: IV Heparin Therapy Range: 62.0-94.0 Basic Metab w/rfx MGon 01-08-2021(cont.)NormalOhio State Harding HospitalComment on above:Result Comment: Average GFR for 70 or more years old: 75 mL/min/1.73sq m Chronic Kidney Disease: <60 mL/min/1.73sq m Kidney failure: <15 mL/min/1.73sq m eGFR calculated using average adult body mass. Additional eGFR calculator available at: http://www.[employer].Rooster Teeth/multiple_crcl_2012.htmPerformed By: #### CDP, BMPX #### [facility] [address] [place] [address] Testing Machine Operator: Darryl Granger MDBUN/CRE Kblpx7Pylegi6-92RetslOhio State Harding Hospital Comment on above:Performed By: #### CDP, BMPX #### [facility] [address] [place] [address] Testing Machine Operator: Darryl Granger MDGFR, Amer40 mL/minLow>60[facility] Hard[facility] HospitalComment on above:Performed By: #### CDP, BMPX #### [facility] [address] [place], [place] [address] Testing Machine Operator: Darryl Granger MDGFR,non Amer33 mL/minLow>60[facility] HospitalComment on above:Performed By: #### CDP, BMPX #### [facility] [address] [place] [address] Testing Machine Operator: Darryl Granger MDUrea nitrogen [Mass/Vol]14 mg/dLNormal8-23[facility] Harding HospitalComment on above:Performed By: #### CDP, BMPX #### [facility] [address] [place], [place] [address] Testing Machine Operator: JANICE Parktaging:NOT REPORTEDNoZanesville City Hospital Comment on above:Performed By: #### CDP, BMPX #### [facility] [address] [place], [place] [address] Testing Machine Operator: Draryl Granger MDBasic Metab w/rfx MGOrdered By: Jaclyn Calabrese on 85-58-1192Ycofr gap [Moles/Vol]13 mmol/LNormal9-17[facility] [employer] Work Phone: comment on above:Performed By: #### CDP, BMPX #### [facility] [address] [place] [address] Testing Machine Operator: FRANKIE Parkalcium [Mass/Vol]9.3 mg/dLNormal8.6-10.4[facility] [employer] Work Phone: comment on above:Performed By: #### CDP, BMPX #### [facility] [address] [place] [address] Testing Machine Operator: FRANKIE Parkhloride [Moles/Vol]100 mmol/ZXgfldy57-132C[facility]wn [employer] Work Phone: comment on above:Performed By: #### CDP, BMPX #### [facility] [address] [place] [address] Testing Machine Operator: FRANKIE ParkO2 [Moles/Vol]23 mmol/BBxomfn34-60[facility] [employer] Work Phone: comment on above:Performed By: #### CDP, BMPX #### [facility] [address] [place] [address] Testing Machine Operator: FRANKIE Parkreatinine [Mass/Vol]1.54 mg/dLHigh0.50-0.90[facility] [employer] Work Phone: comment on above:Performed By: #### CDP, BMPX #### [facility] [address] [place] [address] Testing Machine Operator: Darryl Granger MDGlucose [Mass/Vol]150 mg/nEIwiy25-11Qodru [employer] Work Phone: comment on above:Performed By: #### CDP, BMPX #### [facility] [address] [place] [address] Testing Machine Operator: ABDIEL Parkotassium [Moles/Vol]3.9 mmol/LNormal3.7-5.3[facility] [employer] Work Phone: comment on above:Performed By: #### CDP, BMPX #### [facility] [address] [place] [address] Testing Machine Operator: Darryl Granger MDSodium [Moles/Vol]136 mmol/WGpnfnq351-576Uoecp [employer] Work Phone: comment on above:Performed By: #### CDP, BMPX #### [facility] [address] [place] [address] Testing Machine Operator: Delphine Parkalbert [facility] Metabolic Panel w/ Reflex to MGOrdered By: Jaclyn Calabrese on 90-28-9853THN Ozajsqnp66 mL/minLow>60[facility] CenterJob[facility] Work Phone: GFR Non- Jpqouund88 mL/minLow>60[facility] Center[facility] Work Phone: GFR/1.73 sq M.predicted MDRD (S/P/Bld) [Vol rate/Area] [facility] [employer] Phone: comment on above:Average GFR for 70 or more years old: 75 mL/min/1.73sq m Chronic Kidney Disease: <60 mL/min/1.73sq m Kidney failure: <15 mL/min/1.73sq m eGFR calculated using average adult body mass. Additional eGFR calculator available at: http://www.[employer]/multiple_crcl_2012.htm GFR/1.73 sq M.predicted MDRD (S/P/Bld) [Vol rate/Area]NOT REPORTEDChillicothe Va Medical CenterJobpartners Work Phone: Interpretation and review of laboratory results AbnormalChillicothe Va Medical CenterJobpartners Work Phone: Urea nitrogen (BldV) [Mass/Vol]14 mg/dL8 - 23 mg/dL [facility] Phone: Urea nitrogen/Creatinine (Bld) [Mass ratio]9[facility] Centerfake company 2.0 Phone: [facility]fake [facility] 2.0 Phone: cBC Auto DifferentialOrdered By: Jaclyn Calabrese on 79-86-8026Eddptguk Eos #0.10[facility] Centerfake company 2.0 Phone: absolute Immature GranulocyteNOT REPORTEDChillicothe Va Medical Centerfake company 2.0 Phone: absolute Lymph #3.90[facility] Centerfake [facility] 2.0 Phone: absolute Pleasants #0.50[facility] Centerfake [facility] 2.0 Phone: basophils (Bld) [#/Vol]0.00 10*3/uLMerfake company 2.0 Phone: basophils/100 WBC (Bld)0 %0 - 2 %[employer] Phone: differential TypeYESMerc [employer] Phone: eosinophils/100 WBC (Bld)1 %0 - 5 %[employer] Phone: Hematocrit (Bld) [Volume fraction]34.7 %Low36 - 46 % [facility] Phone: Hemoglobin.gastrointestinal spec 1 Ql (Stl)11.5 g/dL Low12.0 - 16.0 g/dLChillicothe Va Medical Centerfake company 2.0 Phone: Immature GranulocytesNOT REPORTED0 %[employer] Phone: Interpretation and review of laboratory results AbnormalChillicothe Va Medical Centerfake company 2.0 Phone: lymphocytes/100 WBC (Bld)41 %High15 - 40 %[employer] Phone: MCH (RBC) [Entitic mass]28.2 pg26 - 34 pgMerJobpartners Work Phone: MCHC (RBC) [Mass/Vol]33.3 g/dL31 - 37 g/dLChillicothe Va Medical CenterJobpartners Work Phone: MCV (RBC) [Entitic vol]84.8 fL80 - 100 fLChillicothe Va Medical Centerfake company 2.0 Phone: Monocytes/100 WBC (Bld)5 %4 - 8 %[employer] Phone: NRBC AutomatedNOT REPORTEDper 100 WBCChillicothe Va Medical Centerfake company 2.0 Phone: platelet distribution width (Bld) [Ratio]15.9 %High 12.1 - 15.2 %[employer] Phone: platelet EstimateNOT REPORTEDChillicothe Va Medical Centerfake company 2.0 Phone: Platelet mean volume (Bld) [Entitic vol]NOT REPORTED 6.0 - 12.0 fLChillicothe Va Medical Centerfake company 2.0 Phone: Platelets (Bld) [#/Vol]215 10*3/uLPixifly Work Phone: RBC (Bld) [#/Vol]4.09 10*6/uL4.0 - 5.2 m/[employer]WellNetwork[employer].[facility] Centerfake company 2.0 Phone: RBC (Bld) [#/Vol]NOT REPORTEDChillicothe Va Medical Centerfake company 2.0 Phone: Segmented neutrophils/100 WBC (Bld)53 %47 - 75 %[employer] Phone: Segs Absolute5.10[facility] Centerfake company 2.0 Phone: [phone] (Bld) [#/Vol]9.6 10*3/uLConmio Phone: WBC (Bld) [#/Vol]NOT REPORTEDChillicothe Va Medical Centerfake company 2.0 Phone: [facility] CenterJob[facility]ners Work Phone: CBC with Diffon [phone]. Basophil0.00 k/uLNormal 0.0-0.2MSt. Mary's Medical CenterComment on above:Performed By: #### CDP, BMPX #### [facility] [address] [id number] Testing Machine Operator: Phoenix Park.Neutrophil (Seg)5.10 k/uLNormal2.5-7.0Ohio State Harding HospitalComment on above:Performed By: #### CDP, BMPX #### [facility] [address] [place] [address] Testing Machine Operator: James Park PerformedYESSt. Mary's [facility] Comment on above:Performed By: #### CDP, BMPX #### [facility] [address] [place] [address] Testing Machine Operator: Darryl Granger MDBasophils/100 WBC (Bld)0 %Normal0-2MSt. Mary's Medical CenterComment on above:Performed By: #### ESA, BMPX #### [facility] [address] [place] [address] Testing Machine Operator: Darryl Granger MDEosinophils (Bld) [#/Vol]0.10 10*3/uLNormal0.0-0.4 [facility] Hard[facility] HospitalComment on above:Performed By: #### CDP, BMPX #### [facility] [address] [place] [address] Testing Machine Operator: LISE Parkosinophils/100 WBC (Bld)1 %Normal0-5Ohio State Harding HospitalComment on above:Performed By: #### CDP, BMPX #### [facility] [address] [id number] Testing Machine Operator: Darryl Granger MDErythrocyte distribution width (RBC) [Ratio]15.9 % High12.1-15.2MSt. Mary's Medical CenterComment on above:Performed By: #### CDP, BMPX #### [facility] [address] [id number] Testing Machine Operator: Darryl Granger MDHematocrit (Bld) [Volume fraction]34.7 %Jya88-36 [facility] on above:Performed By: #### CDP, BMPX #### [facility] [address] [address] Testing Machine Operator: Darryl Granger MDHemoglobin (Bld) [Mass/Vol]11.5 g/dLLow12.0-16.0 [facility] on above:Performed By: #### ESA, BMPX #### [facility] [address] [address] Testing Machine Operator: Darryl Granger MDLymphocytes (Bld) [#/Vol]3.90 10*3/uLNormal1.0-4.8 [facility] on above:Performed By: #### ESA, BMPX #### [facility] [address] [address] Testing Machine Operator: Constanza Parkmphocytes/100 WBC (Bld)41 %Kuay65-17KpnexSt. Elizabeth Hospital on above:Performed By: #### ESA, BMPX #### [facility] [address] [address] Testing Machine Operator: KALYAN ParkCH (RBC) [Entitic mass]28.2 cdQnvqlp32-47DzhscOhio State Harding HospitalComment on above:Performed By: #### CDP, BMPX #### [facility] [address] [address] Testing Machine Operator: KALYAN ParkCHC (RBC) [Mass/Vol]33.3 g/iHBmeufs19-71LswakOhio State Harding HospitalComment on above:Performed By: #### CDP, BMPX #### [facility] [address] [place], [place] [phone] (925) Testing Machine Operator: KALYAN ParkCV (RBC) [Entitic vol]84.8 rPKjvtyk31-367XmtjuOhio State Harding HospitalComment on above:Performed By: #### CDP, BMPX #### [facility] [address] [place], [place] [phone] (132) Testing Machine Operator: KALYAN Parkonocytes (Bld) [#/Vol]0.50 10*3/uLNormal0.0-1.0 [facility] Harding HospitalComment on above:Performed By: #### CDP, BMPX #### [facility] [address] [place] [address] Testing Machine Operator: KALYAN Parkonocytes/100 WBC (Bld)5 %Normal4-8Ohio State Harding HospitalComment on above:Performed By: #### CDP, BMPX #### [facility] [address] [place] [address] Testing Machine Operator: Darryl Grnager MDNeutrophil (Seg)53 %Dovuze82-68OewsoOhio State Harding HospitalComment on above:Performed By: #### CDP, BMPX #### [facility] [address] [place] [address] (467) Testing Machine Operator: Natacha Parktelets (Bld) [#/Vol]215 10*3/wQBolhqp534-893 [facility] HospitalComment on above:Performed By: #### CDP, BMPX #### [facility] [address] [place] [address] (390) Testing Machine Operator: EN ParkBC (Bld) [#/Vol]4.09 10*6/uLNormal4.0-5.2MSt. Mary's Medical CenterComment on above:Performed By: #### CDP, BMPX #### [facility] [address] [place] [address] Testing Machine Operator: ANDER Park (Bld) [#/Vol]9.6 10*3/uLNormal3.5-11.0[facility] HospitalComment on above:Performed By: #### CDP, BMPX #### [facility] [address] [place] [address] Testing Machine Operator: [place] Park.Imm.GranulocyteNOT REPORTEDNormal0.00-0.30 [facility] HospitalComment on above:Performed By: #### CDP, BMPX #### [facility] [address] [place] [address] Testing Machine Operator: Tami Park GranulocyteNOT EXRFHJTMZjddhg3Sqayc Willard HospitalComment on above:Performed By: #### CDP, BMPX #### [facility] [address] [place] [address] Testing Machine Operator: KALYAN ParkPVNOT REPORTEDNormal6.0-12.0[facility] HospitalComment on above:Performed By: #### CDP, BMPX #### [facility] [address] [place] [address] Testing Machine Operator: EUGENIA Park AutomatedNOT REPORTEDNormalUniversity Hospitals Par[facility] Center HospitalComment on above:Performed By: #### CDP, BMPX #### [facility] [address] [place] [address] Testing Machine Operator: Tee Parklet EstimateNOT REPORTEDNormalUniversity Hospitals Parma [facility] Center HospitalComment on above:Performed By: #### CDP, BMPX #### [facility] [address] [place] [address] Testing Machine Operator: YAYA Park morphology finding Nom (Bld)NOT REPORTEDNormal [facility] HospitalComment on above:Performed By: #### CDP, BMPX #### [facility] [address] [address] Testing Machine Operator: SHERIF Park MorphologyNOT REPORTEDNoZanesville City HospitalComment on above:Performed By: #### CDP, BMPX #### [facility] [address] [address] Testing Machine Operator: Sarahy Park Panel InformationOrdered By: Jaclyn Calabrese on [id number] [facility] Work Phone: pton [phone] Coag (PPP) [Relative time]1.0 {INR} [facility] CampusComment on above:Result Comment: Non-therapeutic Range: INR = 0.9-1.2 Therapeutic Range: Moderate Anticoagulant Intensity: INR = 2.0-3.0 High Anticoagulant Intensity: INR = 2.5-3.5Performed By: #### CDP, BMPX #### [facility] [address] [address] Testing Machine Operator: RUSS Park Coag (PPP) [Time]12.6 lPmtpep67.5-14.2MSt. Mary's Medical CenterCommclaren bay special care hospital on above:Performed By: #### CDP, BMPX #### [facility] [address] [address] Testing Machine Operator: Sebas Parkime-INROrdered By: Jaclyn Calabrese on [phone] Coag (Bld) [Relative time]1.0 {INR}[facility] Work Phone: comment on above: Non-therapeutic Range: INR = 0.9-1.2 Therapeutic Range: Moderate Anticoagulant Intensity: INR = 2.0-3.0 High Anticoagulant Intensity: INR = 2.5-3.5 PT Coag (PPP) [Time]12.6 [facility] [employer] Work Phone: XR CHEST PORTABLEon [phone] CHEST PORTABLEEXAM: XR CHEST PORTABLE HISTORY: Reason for exam:->pre-op [...] Signed by: Ede Collazo DO 01/08/21 Final resultNoalOhio State Harding HospitalXR CHEST PORTABLEOrdered By: Jaclyn Calabrese on . Nonacute portable chest. 2. Chronic changes and findings of mild COPD.[employer]io Phone: eXAM: XR CHEST PORTABLE HISTORY: Reason for exam:->pre-op [...] stable calcified granuloma the mid left lung field.Conmio Phone: e, [facility] Incoming Radiant Results From [employer] - 01/08/2021 8:17 PM EDT EXAM: XR [...] Chronic changes and findings of mild COPD. Conmio Phone: [facility] Centerfake company 2.0 Phone: XR HIP 2-3 VW W PELVIS RIGHTon [id number] HIP 2-3 VW W PELVIS RIGHTEXAM: XR HIP 2-3 VW W PELVIS RIGHT [...] by: Jorge L Benítez MD 01/08/21 Final resultNoZanesville City HospitalXR HIP 2-3 VW W PELVIS RIGHTOrdered By: Jaclyn Calabrese on [phone] intertrochanteric fracture of the proximal right femur.Conmio Phone: eXAM: XR HIP 2-3 VW W PELVIS RIGHT HISTORY: The patient is a 70-year-old female with right hip painafter falling. COMPARISON: None. FINDINGS: There is a comminuted and slightly displaced intertrochanteric fracture of the proximal right femur. The lesser trochanteric fracture fragment is medially displaced approximately 1 cm. The right femoral head remains located within the acetabulum. I do not identify any displaced fractures of the proximal left femur or elsewhere throughout the bony pelvis.The widths and alignment of both hip joints are maintained. Both sacroiliac joints are maintained. The pubic symphysis is maintained.Conmio Phone: eSamaria rodriguez Incoming Radiant Results From [employer] - 01/08/2021 7:47 PM EDT EXAM: XR [...] intertrochanteric fracture of the proximal right femur. [facility] [employer] Work Phone: [facility] [employer] Work Phone: Vital Signs Date TimeVital SignValuePerforming RartuetceXeaagdca04-77-2149 10:48-0500Blood Pressure LocationChricardo HUY [phone]-Hfkxq[address] [place] [address] 08-02-2023 10:48-0500Diastolic blood byryhzdt75 mm[Hg]Ronreal SON [phone]-Xwsgt[address] [place] [address] 08-02-2023 10:48-0500Heart rate82 /minChristop HUY [phone]-Djgvb[address] [place] [address] [place] 08-02-2023 10:48-8341TuM9% (BldA) [Mass fraction]98 %Jacobychrista SON [phone]-Fgxrh[address] [place] [address] [place] 08-02-2023 10:48-0500Systolic blood fsaoenhb553 mm[Hg]Jaclyn HUY [phone]-Hrcpr[address] [place] [address] [place] 08-02-2023 10:40-0500Blood Pressure LocationChjuan carloshasbro children's hospitalher SON [phone]-Fbkiw[address] [place] [address] [place] 08-02-2023 10:40-0500Diastolic blood tfhwprgi27 mm[Hg]Jacobychrista SON [phone]-Tvyfk[address] [place] [address] [place] 08-02-2023 10:40-0500Heart rate82 /minChristop HUY [phone]-UllvyBarnesville Hospital 08-02-2023 10:40-8391MzI2% (BldA) [Mass fraction]98 %Jaclyn SON [phone]-AmrbqBarnesville Hospital 08-02-2023 10:40-0500Systolic blood wvuslfnt859 mm[Hg]Jaclyn SON [phone]-XdfpyBarnesville Hospital 02-25-2023 11:40-0400Body mqrebk955.94 cmPamela Angelina Other [employer] Other 09-15-2023 11:40-0400Body mass index (BMI) [Ratio] 18.51 kg/a9Thvyww Angelina Other [employer] Other 09-15-2023 11:40-0400Body orlfjsbapzg22.9 [degF]Shannan Angelina Other [employer] Other 09-15-2023 11:40-0400Body xfyecy00.45 kgPajean Angelina Other [employer] Other 09-15-2023 11:40-0400Diastolic blood mm[Hg] Shannan Angelina Other [employer] Other 09-15-2023 11:40-0400Respiratory rate18 /minPajean Alfaro Other [employer] Other 09-15-2023 11:40-4498FmH8% (BldA) [Mass fraction]98 % Shannan Alfaro Other [employer] Other 09-15-2023 11:40-0400Systolic blood migefyle959 mm[Hg] Shannan Angelina Other [facility] [employer] Other 08-15-2023 13:06-0400Blood Pressure Location Jaclyn SON [phone]-RxshrBarnesville Hospital 01-25-2023 13:06-0400Diastolic blood mm[Hg]Jaclyn SON [phone]-SosriBarnesville Hospital 01-25-2023 13:06-0400Heart rate83 /minChristopher SoftRun [phone]-XbnniBarnesville Hospital 01-25-2023 13:06-0400Respiratory rate16 /minChristopher SoftRun [phone]-WgsviBarnesville Hospital 01-25-2023 13:06-3133AqB3% (BldA) [Mass fraction]97 %Jaclyn SON [phone]-YsfvhBarnesville Hospital 01-25-2023 13:06-0400Systolic blood deguxhuk017 mm[Hg]Jaclyn SON [phone]-WixukBarnesville Hospital 10-22-2022 15:50-0400Body mmizcp681.94 Juanjo Alfaro Other [facility] [employer] Other 05-12-2023 15:50-0400Body mass index (BMI) [Ratio] 17.23 kg/l7HebkcnShannan Alfaro Other [facility] [employer] Other 05-12-2023 15:50-0400Body zuybhywmlzg18.5 [degF]Shannan Angelina Other [facility] [employer] Other 05-12-2023 15:50-0400Body eykqmb56.37 kgPajean Alfaro Other [employer] Other 05-12-2023 15:50-0400Diastolic blood kzlvuoly36 mm[Hg] Shannan Alfaro Other [employer] Other 05-12-2023 15:50-0400Respiratory rate16 /minPajean Sawantmond Other [employer] Other 05-12-2023 15:50-8339DfS5% (BldA) [Mass fraction]94 % Shannan Alfaro Other [employer] Other 05-12-2023 15:50-0400Systolic blood rnzimclj064 mm[Hg] Shannan Alfaro Other [employer] Other 03-20-2023 14:06-0400Blood Pressure Location Jacobychrista HUY [phone]-MlogoBarnesville Hospital 08-30-2022 14:06-0400Diastolic blood tbfubifq71 mm[Hg]Jaclyn SON [phone]-LytanBarnesville Hospital 08-30-2022 14:06-0400Heart rate71 /minChristopher BROWN [phone]-RhagvBarnesville Hospital 08-30-2022 14:06-0400Respiratory rate16 /minChristopher BROWN [phone]-GqhjxBarnesville Hospital 08-30-2022 14:06-7714KmU2% (BldA) [Mass fraction]97 %Jaclyn HUY [phone]-MjgxlBarnesville Hospital 08-30-2022 14:06-0400Systolic blood vgaybevg135 mm[Hg]Jaclyn BROWN [phone]-IxllzBarnesville Hospital 08-06-2022 20:24-0500Diastolic blood mm[Hg]Danie Lorna [facility]02-24-2023 20:24-0500Heart rate79 /minNoah Lorna [address] [place], [place] 9859502-24-2023 20:24-0500Mean blood qaffzyyt56 mm[Hg]Danie Lorna [address] [place], [place] 4392802-24-2023 20:24-0500 Respiratory rate25 /minNoah Lorna [address] [place], [place] 4392802-24-2023 20:24-1885CyP1% (BldA) [Mass fraction]98 %Danie Lorna [address] [place], [place] 9859502-24-2023 20:24-0500 Systolic blood xckxeozk898 mm[Hg]Danie Lorna [address] [place], [place] 4392802-24-2023 19:01-0500Body qqxhucrtvjz36.06 [degF]Danie Lorna [address] [place], [place] 9859502-24-2023 19:01-0500 Diastolic blood dmnanktd13 mm[Hg]Danie Lorna [address] [place], [place] 9859502-24-2023 19:01-0500Heart rate98 /minNoah Lorna [address] [place], [place] 4392802-24-2023 19:01-0500 Respiratory rate16 /minNoah Lorna [address] [place], [place] 4392802-24-2023 19:01-0267PcE5% (BldA) [Mass fraction]99 %Danie Lorna [facility]02-24-2023 19:01-0500 Systolic blood dzwbheyb315 mm[Hg]Danie Lorna [facility]02-24-2023 19:00-0500 Hourly RoundingNoah Lorna [facility]02-24-2023 18:00-0500 Hourly RoundingNoah Lorna [address] [place], [place] 4392802-24-2023 18:00-0500 Promise to ReturnNoah Lorna [facility]02-20-2023 13:29-0500Blood Pressure LocationChristopher SON [phone]-Ihtir[address] [place] [address] 08-02-2022 13:29-0500Diastolic blood pqcxuznf99 mm[Hg]Jaclyn HUY [phone]-Paotc[address] [place] [address] 08-02-2022 13:29-0500Heart rate77 /minChristop HUY [phone]-Rfmaa[address] [place] [address] 08-02-2022 13:29-9584QlM7% (BldA) [Mass fraction]96 %Jaclyn HUY [phone]-Cojzc[address] [place] [address] 08-02-2022 13:29-0500Systolic blood kkudvvpz066 mm[Hg]Jaclyn SON [phone]-Denrf[address] [place] [address] 06-01-2022 19:20-0500Body alofkt184.94 Berhane Porter Other [facility] [employer] Other 12-20-2022 19:20-0500Body mass index (BMI) [Ratio] 17.57 kg/o3WtaugjkxkRadha Porter Other [employer] Other 12-20-2022 19:20-0500Body uatquffjtbu63.5 [degF] Radha Lawsonault Other [employer] Other 12-20-2022 19:20-0500Body vbrkyl21.18 kgStara Lawsonault Other [employer] Other 12-20-2022 19:20-0500Diastolic blood rmhtdgoq89 mm[Hg] Radha Lawsonault Other [employer] Other 12-20-2022 19:20-0500Respiratory rate16 /minSdejon German Other [employer] Other 12-20-2022 19:20-9216EhB8% (BldA) [Mass fraction]100 % Radha Lawsonault Other [employer] Other 12-20-2022 19:20-0500Systolic blood waqaunhi788 mm[Hg] Radha Lawsonault Other [employer] Other 10-03-2022 12:40-0400Diastolic blood wazrlibf76 mm[Hg] MD Tony Son Work Phone: [facility]10-03-2022 12:40-0400 Heart rate75 /minMD Tony Son Work Phone: [facility]10-03-2022 12:40-0400 SaO2% (BldA) [Mass fraction]99 %MD Tony Son Work Phone: [facility]10-03-2022 12:40-0400 Systolic blood cdnqgdzi228 mm[Hg]MD Tony Son Work Phone: [phone]10-03-2022 10:20-0400 Body lugpea647.94 cmMD Tony Son Work Phone: [phone] [place], [place] 6220310-03-2022 10:20-0400 Body zyvxuwfmnnk40.2 [degF] Tony Son Work Phone: [phone] [place], [place] 6220310-03-2022 10:20-0400 Body .18 kgMD Tony Son Work Phone: [phone] [place], [place] 6220310-03-2022 10:20-0400 Respiratory rate16 /minMD Tony Son Work Phone: [phone] [place], [place] 6220308-11-2022 13:22-0400 Blood Pressure LocationChgraceher SON [phone]-Xktle[address] [place] [address] [place] 08-11-2022 13:22-0400Diastolic blood dihxpljp10 mm[Hg] Jaclyn HUY [phone]-Wghxm[address] [place] [address] [place] 08-11-2022 13:22-0400Heart rate72 /minChristopher HUY [phone]-Qmpwj[address] [place] [address] Medicine [place] 08-11-2022 13:22-0400Respiratory rate16 /minChristopher HUY [phone]-Ryfrf[address] [place] [address] Medicine [place] 08-11-2022 13:22-7207FyK2% (BldA) [Mass fraction]99 % Jaclyn HUY [phone]-Lqtiz[address] [place] [address] [place] 08-11-2022 13:22-0400Systolic blood dnywyovx678 mm[Hg] Jaclyn SON [phone]-Dsjob[address] [place] [address] [place] 07-11-2022 14:45-0400Body amsfom029.94 cmDatricia Soto Other [employer] Other 07-11-2022 14:45-0400Body mass index (BMI) [Ratio] 17.57 kg/b6Mxrqltricia Soto Other [employer] Other 07-11-2022 14:45-0400Body axpdrs89.18 kgDatricia Soto Other [facility] [employer] Other 07-11-2022 14:45-0400Diastolic blood ybimcquo05 mm[Hg] Darryl Soto Other [facility] [employer] Other 07-11-2022 14:45-0400Systolic blood jiuxnqjc238 mm[Hg] Darryl Soto Other [employer] Other 07-11-2022 14:22-0400Body weight0 kgMD Tony Son Work Phone: [facility]05-17-2022 12:10-0400 Blood Pressure LocationChristop HUY [phone]-LbrbnGal[facility] [place] 05-17-2022 12:10-0400Diastolic blood tvdenhbr62 mm[Hg] Jaclyn HUY [phone]-KrrjfSelect [facility] [place] 05-17-2022 12:10-0400Heart rate90 /minChristop HUY [phone]-GbbmbSelect [facility]ty [facility] [place] 05-17-2022 12:10-0400Respiratory rate16 /minChricardo SON [phone]-CzyhaProtestant Deaconess Hospital [place] 05-17-2022 12:10-6396VzI5% (BldA) [Mass fraction]96 % Jaclyn SON [phone]-BkixbProtestant Deaconess Hospital [place] 05-17-2022 12:10-0400Systolic blood lutgwcli853 mm[Hg] Jaclyn SON [phone]-IxrqnProtestant Deaconess Hospital [place] 08-04-2021 07:47-0400Body anaxwmsvrli19.1 [degF] Jaclyn Calabrese MD Work Phone: [facility] CenterJob[facility] Work Phone: [phone] 316-839408-04-2021 07:47-0400Diastolic blood nsxewpau08 mm[Hg] Jaclyn Calabrese MD Work Phone: [facility] [employer] Work Phone: [phone] 125-557308-04-2021 07:47-0400Heart hehs579 /Teodoro Calabrese MD Work Phone: [facility] [employer] Work Phone: [phone] 07:47-0400Respiratory rate20 /min Jaclyn Calabrese MD Work Phone: [employer] Work Phone: [phone] 07:47-3987TpO7% (BldA) [Mass fraction]92 % Jaclyn Calabrese MD Work Phone: [employer] Work Phone: 1(243) 297-728908-04-2021 07:47-0400Systolic blood mm[Hg] Jaclyn Calabrese MD Work Phone: [employer] Work Phone: [phone] 316-813408-03-2021 01:00-0400Body mass index (BMI) [Ratio] 21.39 kg/j3Pygfruntjsp Guanakito MD Work Phone: [facility] [employer] Work Phone: [phone] 01:00-0400Body fasejs72.35 kgJaclyn Calabrese MD Work Phone: [facility] [employer] Work Phone: [phone] 10:04-0400Body .9 Wili Calabrese MD Work Phone: [facility] [employer] Work Phone: Encounters Encounter DateEncounter TypeCare ProviderFacilityStart: 76-98-5016mulnwnhvqd Jaclyn SONFacility:FM WillardStart: 09-11-2024 End: 28-90-4528cuusexjcqaOmeubdqtxaw BROWNFacility:FM WillardStart: 08-02-2023 End: 50-84-6355Flv Drop offChricardo SON [facility] Start: 08-02-2023 End: 36-52-9614Cvbc adult monitoring check doneChricardo SON [phone]-SxqqySelect [facility] [place] Start: 08-02-2023 End: 36-15-7010Eornaoc encounter procedureChricardo SON [phone]-KgcllSelect Medical Specialty [facility] [place] Start: 02-25-2023 End: 09-60-2368qhiyzcguwkHpfpcn Dymond Other [place] [employer] Other Start: 36-46-1691Xqcwum outpatient visit 15 minutes [facility] ClydeStart: 01-25-2023 End: 26-19-2644Nboqshb encounter procedureChricardo SON [phone] [place] Start: 10-22-2022 End: 30-11-1358llibmxjkpvYyrxec Angelina Other [place] [employer] Other Start: 75-61-6978Cmmnao outpatient visit 15 minutes Shannan AlfaroCHRISTOPHERG Urgent Care ClydeStart: 09-08-2022 End: 84-96-5076rnogtdttjgVH DOCTOR MISCFacility:J0Ityzk: 08-30-2022 End: 67-13-0109Auf Drop offChristopher SON [facility] Start: 08-30-2022 End: 21-20-4011Wynaboi encounter procedureChristopher SON [phone]-UfrcqSelect [facility] [place] Start: 08-06-2022 End: 81-12-7276Cevyjppcg department patient visitNostevan HigginsLizet Rothman [facility] Start: 08-06-2022 End: 97-91-2072Cproewe encounter procedureChristopher SON [facility] Start: 08-02-2022 End: 51-81-2071Oqyuwbf encounter procedureChristopher SON [phone]-Seuxw[facility] [place] Start: 08-02-2022 End: 58-94-3654Jnqp adult monitoring check doneChristopher SON [phone]-HrnlzGalion Community Hospital [facility] [place] Start: 07-29-2022 End: 21-54-1003Fdl Drop offChristopher SON [address] [place] [address] Start: 06-01-2022 End: 31-17-5433scthcigfqeVwurjgnli Bre[place] [facility] [employer] Other Start: 69-58-2024Yezhsx outpatient visit 15 minutes Radha BetiG [facility] ClydeStart: 03-19-2022 End: 66-67-1797gfuvjkswmqAbzff Hyjenniffer Other [facility] [employer] Other Start: 51-57-1415Drgmjwnso encounterDavitimmy BrittanyCHRISTOPHERG GastroenterologyStart: 03-15-2022 End: 65-66-6688ondejdfrfdPtovpzm J DittyFacility:[facility] Hospitaltart: 03-15-2022 End: 52-29-3699Xwsrwsigh to same day surgery centerMD Tony Son Work Phone: [facility]Dig[facility] HealthStart: 03-15-2022 End: 71-76-8015osokixfjmbIO Chris R Brown Work Phone: [facility] Work Phone: Start: 03-11-2022 End: 92-83-5894erxzgqqsayTzldewj J DittyFacility:[facility] Hospitaltart: 03-11-2022 End: 03-35-2298unvenvzuemHI Chris R Brown Work Phone: [facility] Work Phone: Start: 03-11-2022 End: 49-47-7119Uheotma encounter procedureMD Tony oSn Work Phone: [facility] [employer] Start: 02-19-2022 End: 69-18-0067ewohddgmjhEiffrdx J DittyFacility:[facility] Hospitaltart: 02-19-2022 End: 39-64-5028ksavohfvzwNU Chris R Brown Work Phone: [facility] Work Phone: Start: 02-19-2022 End: 24-52-6395Cybvorcw ReferredMD Tony Son Work Phone: [facility]-Dig[facility] HealthStart: 01-29-2022 End: 54-84-7381Eqf Drop offChricardo HUY [facility] Start: 01-29-2022 End: 63-16-5949Hprghlt encounter procedureChricardo SON [phone]-AftpaProtestant Deacon[facility] [place] Start: 01-21-2022 End: 00-81-5526Ovo Drop offJaclyn SON [facility] Start: 01-21-2022 End: 29-90-9861Mqpgfyy encounter procedureJaclyn SON [phone]-AbhfxProtestant Deaconess Hospital [place] Start: 01-07-2022 End: 92-53-6011pgbfarsxjxRcjfs R BrownFacility:[facility] Start: 01-07-2022 End: 89-70-4002Xqzmheq encounter Peewee Soto Work Phone: [facility] Imw-Uhk-Wsrdploc Testing Start: 12-21-2021 End: 77-43-3053juxrbyhpsmHcfnj Hykes Other [place] [employer] Other Start: 34-17-7209Kuqkdo outpatient new 30 minutesDatricia SotoFPG GastroenterologyStart: 11-10-2021 End: 09-75-8357vptujlucfgHVZMZ AKKINAFacility:M3Irzhe: 10-27-2021 End: 66-49-1645Gmdnnam encounter procedureJaclyn SON [phone]-VippzGalion Community Hospital [facility] [place] Start: 09-18-2021 End: 44-65-4039Cawvwok encounter procedureMichael R NILL General Surgery Nill/Said Jessi Start: 04-03-2021 End: 54-74-8596xicfufbcpjATZZYR C COPEAkron [facility] HospitalStart: 04-03-2021 End: 17-79-0163Qrcwhxeade hospital visit by physicianCheri [address] RadiologyComment on above:Closed displaced intertrochanteric fracture of right femur with routine healingStart: 04-03-2021 End: 85-52-3287xcuklvzscfCJVWHXMFOHC R BROWNUniversity [facility]als [facility] HospitalStart: 04-03-2021 End: 84-78-2310Vlfdzxrubv hospital visit by physicianJaclyn Son MD Work Phone: [facility] RadiologyStart: 03-06-2021 End: 77-90-3440mxsnzbnehcULYCMYSOUJL R [facility] HospitalStart: 03-06-2021 End: 91-48-9256bstezqklzkPEORTFLAUHB Ac [facility] HospitalStart: 03-06-2021 End: 69-37-8069Ouwphjxzcw hospital visit by Kedar Son MD Work Phone: [phone] [place] [address] RadiologyStart: 02-20-2021 ambulatoryCHRISTOPHER Ac [facility] HospitalStart: 01-23-2021 End: 89-06-6554mwflasasjmVFLSYLKDCSL Ac [facility] HospitalStart: 01-23-2021 End: 70-98-6278Intioqpiua hospital visit by physicianCheri Additional [facility] At [facility] RadiologyComment on above:Closed nondisplaced intertrochanteric fracture of right femur, initial encounter (HCC)Start: 01-23-2021 End: 99-83-8737iyvjltrxziXWKXRD C [facility] HospitalStart: 01-23-2021 End: 09-05-9768Gzusxrtzez hospital visit by physicianJaclyn Son MD Work Phone: [facility] RadiologyStart: 01-08-2021 End: 90-24-0128Gsibfuregs and management of inpatientSTEVEN C [facility] HospitalStart: 01-08-2021 End: 59-23-9037Cwvkzxnoqa and management of inpatientChrisradha Calabrese MD Work Phone: mWHZ 2E MED SURG TELEMETRYComment on above:Closed fracture of right hip, initial encounter (HCC) (Primary Dx); Accidental fall, initial encounter; Closed hip fracture, right, initial encounter (HCC); Postoperative anemia; Renal insufficiency Procedures DateProcedureProcedure DetailPerforming ClinicianStart: 94-98-9608VnwtexlelfnSF Chris Brown Work Phone: Start: 55-19-3047XulxyzigssgCeyiwdrhdph BROWN comment on above:w/polypect[facility]: 09-09-2021 ColonoscopyMichael NILL Start: 55-66-8538Vkfrj hip unilateral with pelvis 2-3 Cassie Michelle MD Work Phone: Start: 11-57-8038Yswsp hip unilateral with pelvis 2-3 Cassie Michelle MD Work Phone: Start: 07-26-0916ULBYO-19, RAPIDAurelio Saldana MD Work Phone: start: 76-67-9391Eybjy count hemoglobinAurelio Saldana MD Work Phone: start: 22-94-7035Yqkpe metabolic panel calcium total Aurelioausten Saldana MD Work Phone: start: 66-41-3950Pgzdb metabolic panel calcium total Aurelio Saldana MD Work Phone: start: 01-51-5012Pebnq count complete Jordon Lowry MD Work Phone: Start: 04-31-3008RTSXELG, SEPSISIsaias Lowry MD Work Phone: Start: 44-71-5801WWASXPV, BLOOD 1Gdanitza Lowry MD Work Phone: Start: 59-89-2782Zjwyxeexyu exam chest single view Isaias Lowry MD Work Phone: Start: 06-99-8584Ggvgn count complete auto&auto difrntl wbcIsaias Lowry MD Work Phone: Start: 42-01-7240Smtekskw screenChrisradha Calabrese MD Work Phone: Start: 45-40-2833Onoyy metabolic panel calcium total Eugene Michelle MD Work Phone: Start: 81-39-6746Hanxcbcpky exam abdomen 1 viewIsaias Lowry MD Work Phone: Start: 35-21-8370Etdylcnnvbq of packed red blood cells Isaias Lowry MD Work Phone: Start: 44-22-8654Bvhig count complete auto&auto difrntl Karley Lowry MD Work Phone: Start: 68-36-3406Pqhxpladahy of packed red blood cells Isaias Lowry MD Work Phone: Start: 06-52-2565Aovei metabolic panel calcium total Eugene Michelle MD Work Phone: Start: 86-81-1710Wqdvkscgciw up to 1 hour physician/qhp timeScarri Michelle MD Work Phone: Start: 01-09-2021 End: 07-46-1821Rvfe fem shft fx w/insj imed implt w/wo screwSteamrik Michelle MD Work Phone: Start: 25-87-5603Gongu typing serologic Serg Lowry MD Work Phone: start: 65-44-5054Hpppvblcvp microscopic onlyIsaias Lowry MD Work Phone: Start: 72-07-3421Jwyay dip stick/tablet rgnt auto w/o microscopyIsaias Lowry MD Work Phone: Start: 17-14-7822GBFMV-19, RAPIDIsaias Lowry MD Work Phone: Start: 57-34-0713Yegzs metabolic panel calcium total Isaias Lowry MD Work Phone: Start: 13-19-5375RCRZF METABOLIC PANEL W/ REFLEX TO MG FOR LOW KGohar Alen LIM Work Phone: Start: 66-54-9972Okmew count complete auto&auto difrntl wbcIsaias Lowry MD Work Phone: Start: 63-89-0245Zxfstclygz exam chest single view Jaclyn Calabrese MD Work Phone: Start: 69-38-2050Ckg routine ecg w/least 12 lds i&r onlyChricardo Calabrese MD Work Phone: Start: 08-36-7029JAKMC METABOLIC PANEL W/ REFLEX TO MG FOR LOW KChristopher Sin Calabrese MD Work Phone: Start: 63-35-3570Itxihmpimvc timeChricardo Calabrese MD Work Phone: Start: 11-48-8658Pflyu hip unilateral with pelvis 2-3 viewsChricardo Calabrese MD Work Phone: CholecystectomyMichael NILL Closed reduction of fracture of right femur and internal fixation using dynamic hip screw plateMichael NILL SARS Antigen (LFIA)DO Darryl Soto Work Phone: SARS Antigen (LFIA)MD Tony Son Work Phone: Total abdominal hysterectomyMichael NILL Plan of Treatment DateCare ActivityDetailAuthorStart: 55-99-6143SjjkptloeFairfield Medical Center Start: 75-13-0532EmlgahncgncTX Colonoscopy Diagnostic (Not Applicable)[facility] Hospitaltart: 75-65-6468Whfumlcvpxan 65+ years Vaccine (2 of 2 - PPSV23)Pneumococcal 65+ years Vaccine (2 of 2 - PPSV23)[employer] Phone: start: 46-06-3525YFJMG-19 Vaccine (3 - Pfizer booster) COVID-19 Vaccine (3 - Pfizer booster)[employer] Phone: start: 62-68-5750Opbysqigt vaccinationFlu vaccine (#1) [employer] Phone: start: 01-21-2021 End: 73-48-9199Qpibn metabolic 2000 panel - Serum or PlasmaBasic Metabolic Panel Lab Routine Renal insufficiency Expected: 01/21/2021, Expires: 01/14/2022[employer] Phone: comment on above:Expected: 01/21/2021, Expires: 01/14/2022tart: 01-21-2021 End: 60-14-5859RTB W Auto Differential panel - BloodCBC Auto Differential Lab Routine Postoperative anemia Expected: 01/21/2021, Expires: 01/14/2022[facility] Phone: comment on above:Expected: 01/21/2021, Expires: 2Start: 01-14-2021 End: 43-35-7063Rshtyqdzvx and management of asxyihmqv13/04/2021 Office VisitMFAXTON HOS[facility]BILE DAN[facility]IL[facility] UNITStart: 33-64-5840Slehaf Wellness Visit (AWV)Annual Wellness Visit (AWV)[facility] Phone: start: 45-02-7148Yabrzlaqh for osteoporosisDEXA (modify frequency per FRAX score)[employer] Phone: start: 43-54-5876Ijgxdkmby for osteoporosisDEXA (modify frequency per FRAX score)[employer] Phone: start: 40-87-7775Woisiiorn for malignant neoplasm of breastBreast cancer screenConmio Phone: start: 04-28-2052Hksghmqgq for malignant neoplasm of lungLow dose CT lung screeningConmio Phone: Start: 60-49-9640Nabluyog Vaccine (1 of 2)Shingles Vaccine (1 of 2)[employer] Phone: start: 70-66-8780Osabekhni for malignant neoplasm of breastBreast cancer screenConmio Phone: start: 76-86-2878Hdrolpapu for malignant neoplasm of lungLow dose CT lung screeningConmio Phone: start: 25-27-1042Qadmcdhf Vaccine (1 of 2)Shingles Vaccine (1 of 2)[employer] Phone: start: 90-63-8971Lxiqcbnof for malignant neoplasm of colonColon cancer screen colonoscopyConmio Phone: start: 18-79-0539Ifjydwghs for malignant neoplasm of colonColon cancer screen colonoscopyConmio Phone: start: 83-57-5837FKvW/Tdap/Td vaccine (1 - Tdap) DTaP/Tdap/Td vaccine (1 - Tdap)[employer] Phone: start: 76-93-9018URxK/Tdap/Td vaccine (1 - Tdap) DTaP/Tdap/Td vaccine (1 - Tdap)[employer] Phone: start: 71-97-7115Blamg panelLipid screenConmio Phone: start: 33-95-4284Jtqcg panelLipid screenChillicothe Va Medical Centerfake company 2.0 Phone: start: 60-07-7094Lzglfxbvl C screeningHepatitis C [facility]fake [facility] Phone: start: 14-53-7327Wsezexhnd C screeningHepatitis C [facility]fake [facility] Phone: acapellaAcapella Respiratory Care Routine 0800, 1200, 1600, 2000 (respiratory use only) until discontinued starting 01/10/2021[facility] Phone: comment on above:0800, 1200, 1600, 2000 (respiratory use only) until discontinued starting 01/10/2021apnographyCapnography Respiratory Care Routine Every 4hr until discontinued starting 01/09/2021[facility] Phone: comment on above:Every 4hr until discontinued starting 01/09/2021 End: 40-20-7267DBVIM-19, RapidCOVID-19, Rapid Microbiology Routine One Time for 1 Occurrences starting 01/14/2021 until 01/14/2021[facility] Phone: comment on above:One Time for 1 Occurrences starting 01/14/2021 until 01/14/2021ulture, Blood 1Culture, Blood 1 Microbiology STAT 01/11/2021 8:49 PM [facility]Cl[facility] [facility]: Nasal Cannula OxygenNasal Cannula Oxygen Respiratory Care Routine Daily until discontinued starting 01/09/2021[facility] Phone: comment on above:Daily until discontinued starting 01/09/2021Oxygen therapy [Minimum Data Set][facility] [employer] Phone: comubky on above:Daily until discontinued starting 01/08/2021aily until discontinued starting 01/09/2021pirometry panelIncentive spirometry Respiratory Care Routine Every 2hr while awake until discontinued starting 01/09/2021[facility] Phone: comktac on above:Every 2hr while awake until discontinued starting 01/09/2021 Immunizations Immunization DateImmunizationNotesCare DziqtqviDlaqzgcn17-43-2889pmfnuzndz virus vaccine, unspecified formulationChristopher [facility] 060-4760Sceeak-LcmywBarnesville Hospital 18-07-8659zpjwfpx toxoid, reduced diphtheria toxoid, and acellular pertussis vaccine, adsorbedChristopher [facility] 156-7331Qoavha-OecpuBarnesville Hospital 91-13-1832iodylw vaccine recombinantChristopher [facility] 326-7081Tomxsr-Bgnzw[address] [place] [address] 56-56-2257OWMX-CoV-2 (COVID-19) mRNAMUL.ORD!d60716Fsqvpcimvoy [facility] 702-4957Mrpchi-Dxdwz[address] [place] [address] 75-81-2349emabowien virus vaccine, unspecified formulationChacoma-canoncito-laguna hospitalher [facility] 479-7118Tsssjp-Gfmzd[address] [place] [address] 05-26-9770eufdlagwetxc polysaccharide vaccine, 23 valentMichael NILL [facility] [place] 10-669922-48-1978OCJMB-42, mRNA, LNP-S, PF, 30 mcg/0.3 mL dose Florentin NILL [facility] Jessi 09-333555-00-1875kuzrpzfxt, high dose seasonal, preservative-freeMichael NILL [facility]efirelands [facility] Jessi [id number]-73, Pfizer, PF, 30mcg/0.3mLCcherise Calabrese MD Work Phone: [facility] [employer] Work Phone: [phone]O-49, Pfizer, PF, 30mcg/0.3mLCcherise Calabrese MD Work Phone: [facility] [employer] Work Phone: [phone]qfjlsm, high dose seasonal, preservative-freeChristopher Guanakito LIM Work Phone: [facility] Work Phone: [phone]cxzmbwox conjugate vaccine, 13 valent Jaclyn Calabrese MD Work Phone: [facility] Work Phone: Payers DatePayer CategoryPayerPolicy [id number]-[id number] [id number] [id number] 2.16.840.1.585082.3.57[id number] 2.16.840.1.739877.3.57[id number] 2..840.1.958355.3.57[id number] 2.16.840.1.506557.3.57[id number] 2.16.840.1.296700.3.57[id number] 2.16.840.1.062313.3.579.[id number] 2.16.840.1.787720.3.579.2.66841-02-2550Cbkmkbr0801513 2.16.840.1.652544.3.57[id number] 2.16.840.1.368767.3.579.[id number] 2..840.1.995209.3.579.[id number] 2..840.1.017338.3.579.[id number] 2..840.1.318553.3.57[id number] 2..840.1.983841.3.57[id number] 2.16.840.1.9[id number] 2..840.1.121117.3.579.2.531 [id number] 2..840.1.9[id number] 2.16.840.1.898761.3.579.2.495Lzwefjg24209392 2..840.1.030105.3.579.2.531 Social History DateTypeDetailFacilityStart: 81-63-6383Pwslene smoking status NHISCurrent every day smokerChillicothe Va Medical Centerfake company 2.0 Phone: start: 88-48-6950Gloiocfkea smoked current (pack per day) - ReportedChillicothe Va Medical Centerfake company 2.0 Phone: start: 09-80-1111Emuzohz intakeCurrent non-drinker of alcohol (finding)[facility] [employer] Phone: start: 1950 End: 79-53-6178Bjz Assigned At BirthNot on fileChillicothe Va Medical Centerfake company 2.0 Phone: exposure to SARS-CoV-2 (event)Not [facility] Start: 08-18-2021 End: 08-70-4048Fmujejs smoking statusLight tobacco smoker (finding)[facility] [place] Tobacco smoking statusNeverGeneral Surgery Jessi Comment on above:Smokes 1 pack per day.[facility] Start: 69-02-3006Svg [facility] At [facility]ertart: 03-15-2022 End: 28-90-9035Vbkiryf smoking status NHISSmoker (finding)[facility] Hospitaltart: 54-65-7543Zrpxhip smoking statusHeavy tobacco smoker (finding)[facility] WillardComment on above: Smokes 1 pack per day. Medical Equipment Procedure CodeEquipment CodeEquipment Original TextEquipment IdentifierDatesNail Im L340mm Riv71gl 130deg Lng R Prox Fem Grn Ti [id number]: 01-09-2021 Screw Bne L42mm Dia5mm Tib Lt Grn Ti St Carol Navneet Full [id number]: 88-75-2263Hvrln Im L85mm Dia10.35mm Prox Fem G Ti Carol Fen Arleen [id number]_[id number] Start: 01-09-2021 Goals DatePatient GoalDesired Activity/State Functional Status NbdlGogxeixzjtMsvibxZsjkkinj28-03-8275Ehdikvdjcq StatusN/[facility] Qhypbdk94-42-2136Dqccdsodwa StatusN/[facility] Jrrktte55-87-5628Qkrthkrjzg StatusN/[facility] Sqildst02-02-6211Lrktcktyfs StatusN/[facility]02-20-2023Functional StatusN/[facility] Shxzjqw19-37-6486Xmcaitiesi StatusN/[facility] [place] Clinical Notes 01-09-2021 to 09-11-2024 Note Date & AkekFtuhQsmpcklj60-06-5386 NotePatient Education Nephrology Chronic Kidney Disease, Adult Chronic kidney disease (CKD) occurs when the kidneys are slowly and permanently damaged over a longperiod of time. The kidneys are a pair [...] taken to slow kidney damage or to stopit from getting worse. If steps are not [...] tubes of the kidneys and of the surroundingstructures. ? Polycystic kidney disease, in which clusters [...] waste from the body. It may be neededif you have kidney failure. ??? Managing any other conditions that are causing your CKD or making it worse. Follow these instructions at home: Medicines ??? Take bbzn-sbj-bwkhorf and prescription medicines only as told by your health care provider. Theamount of some medicines that you take may [...] contain nicotine or tobac (more content not included)...[facility]03-29-2025 NoteAt[facility] Health Lincoln Education Pulmonary Medicine Chronic Obstructive Pulmonary Disease [...] these instructions at home: Medicines ??? Take acsq-guk-cwjoiyg and prescription medicines only as told by your health care provider. This includes inhaled medicines and pills. ??? Talk to your health care provider before taking any cough or allergy medicines. You may need toavoid certain medicines that dry out your airways. [...] out (exhale) through the pursed lips for 2seconds. ??? Diaphragmatic delroy (more content not included)...[facility] 08-02-2023 Hospital Discharge instructions Patient Education 08/02/2023 12:03:23 Health Risks [...] is absorbed quickly into your bloodstream through yourlungs. Both inhaled and non-inhaled nicotine may be [...] your mind, and long-time habits can be hardto change. Your health care provider can recommend: [...] Department of Health and Human Services: www.smokefree.gov [employer] Association: www.freedomfromsmoking.org [employer] Heart Association: www.heart.org Where to find more [...] provider. Document Revised: 06/01/2022 Document Reviewed: 06/01/2022 Leondra music Patient Education 2022 iPling. 08/02/2023 12:03:20 Chronic Kidney Disease, Adult Chronic Kidney Disease, Adult Chronic kidney disease (CKD) occurs when the kidneys are slowly and permanently damaged over a longperiod of time. The kidneys are a pair [...] taken to slow kidney damage or to stopit from getting worse. If steps are not [...] Follow these instructions at home: Medicines Take ubbi-vma-xzihtyc and prescription medicines only as told by your health care provider. The amount of some medicines that you take may need to be changed. Do not take any new medicines unless approved by your health care provider. Many medicines can makekidney damage worse. Do not take any vitamin [...] care provider about eating or drinking restrictions, includingany prescribed diet. Track your blood pressure at [...] is important. Where to find more information [employer] Association of Kidney Patients: www.aakp.org National Kidney Foundation: www.kidney.org [employer] Kidney Fund: www.akfinc.org Life Options: www.lifeoptions.org Kidney [...] provider. Document Revised: 09/03/2020 Document Reviewed: 09/03/2020 Leondra music Patient Education 2022 iPling. 08/02/2023 12:03:17 Chronic Obstructive Pulmonary Disease Chronic [...] a spirometry test, which measures your ability toexhale properly. Chest X-ray. CT scan. Blood tests. [...] Follow these instructions at home: Medicines Take tpfw-bnc-ojsqyyw and prescription medicines only as told by your health care provider. This includes inhaled medicines and pills. Talk to your health care provider before taking any cough or allergy medicines. You may need to avoid certain medicines that dry out your airways. Lifestyle If you smoke, the most important thing that you can do is to stop smoking. Continuing to smoke willcause the disease to progress faster. Do not use any products that contain nicotine or tobacco. These products include cigarettes, chewing tobacco, and vaping devices, such as e-cigarettes. If you need help quitting, ask your health careprovider. Avoid exposure to things that irritate your [...] whether you should purchase a pulse oximeter tomeasure your oxygen level at home. Work with [...] provider. Document Revised: 04/07/2021 Document Reviewed: 04/07/2021 Leondra music Patient Education 2022 iPling. [facility] [place] 02-17-2024 Hospital Discharge instructions Patient Education 07/30/2023 17:27:31 Chronic Obstructive [...] a spirometry test, which measures your ability toexhale properly. Chest X-ray. CT scan. Blood tests. [...] Follow these instructions at home: Medicines Take qisg-dgf-niupoox and prescription medicines only as told by your health care provider. This includes inhaled medicines and pills. Talk to your health care provider before taking any cough or allergy medicines. You may need to avoid certain medicines that dry out your airways. Lifestyle If you smoke, the most important thing that you can do is to stop smoking. Continuing to smoke willcause the disease to progress faster. Do not use any products that contain nicotine or tobacco. These products include cigarettes, chewing tobacco, and vaping devices, such as e-cigarettes. If you need help quitting, ask your health careprovider. Avoid exposure to things that irritate your [...] whether you should purchase a pulse oximeter tomeasure your oxygen level at home. Work with [...] provider. Document Revised: 04/07/2021 Document Reviewed: 04/07/2021 [employer]ond[employer] music Patient Education 2022 iPling. Follow Up Care 01/25/2023 13:31:33 With:Jaclyn SON MD, FAM Address: When:Within 1 Year(s) [facility] [place] 09-15-2023 Evaluation note* Encounter Date Diagnosis Assessment Notes Treatment Notes Treatment Clinical Notes Feb, Sore throat (ICD-10 - J02.9) Feb,cute sinusitis, recurrence not specified, unspecified location (ICD-10 - J01.90)Drink plenty fluids, get plenty of rest. Continue home medications as prescribed. Take the amoxicillin with clavulanate as prescribed until gone. Use the fluticasone nasal spray as prescribed until your symptoms improved. You may take Mucinex as needed for congestion. Follow-up with your doctor if no improvement in 2 to 3 days [employer] Other 08-13-2023 Hospital Discharge instructions Patient Education [...] Pickled foods. Vegetable juice. Boxed mixes or iwqmm-uo-cfh boxed meals and side dishes. Bottled dressings, [...] provider. Document Revised: 09/22/2020 Document Reviewed: 09/22/2020 [employer] Patient Education 2022 iPling. Follow Up Care 07/29/2022 13:52:07 With:Jaclyn SON MD, FAM Address: [address] [place] [id number]- When:6 months [facility] [place] 05-12-2023 Evaluation note* Encounter Date Diagnosis Assessment Notes Treatment Notes Treatment Clinical Notes October, Sore throat (ICD-10 - J02.9) October,cute pharyngitis due to other specified organisms (ICD-10 - J02.8) Pharyngitis/tonsillopharyngitis: adult home care material was printed Drink plenty fluids, get plenty of rest. Take the amoxicillin as prescribed until gone. Take Tylenol or Motrin as needed for aches pains or fevers. Follow- up with your family physician if no improvement in 2 to 3 days October,Other specified bacterial agents as the cause of diseases classified elsewhere (ICD-10 - B96.89) [employer] Other 03-18-2023 Hospital Discharge instructions Patient Education [...] lower your excretion of potassium. 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 ?You have a urinary tract blockage, [...] This puts you at the highest risk. Haris's disease. This is a condition where the [...] (arrhythmias). Follow these instructions at home: Take qxgc-pff-oeieill and prescription medicines only as told by [...] 05/20/2003 Document Revised: 05/15/2018 Document Reviewed: 05/15/2018 [employer] Patient Education 2019 iPling. [facility] [place] 02-24-2023 Hospital Discharge instructions Patient Education 08/06/2022 [...] including vitamins, herbs, eye drops, creams, and xlmi-cxy-aofnuba medicines. Any medical conditions you have. How [...] IV intake of potassium-rich solutions. Kidney failure. [place]'s disease. Decreased production of the aldosterone hormone [...] of aldosterone hormone by the kidneys (hyperaldosteronism). [place]'s syndrome. Kidney disease. Consuming too much licorice. [...] 07/02/2005 Document Revised: 02/15/2018 Document Reviewed: 02/15/2018 [employer] Patient Education 2020 [employer] Follow Up Care 08/06/2022 18:49:11 With:Jaclyn SON Address: [address] [place] [phone]- Business (1) When:08/11/2022 20:06:02 [facility]02-24-2023 Evaluation + Plan noteExtracted from: Title:ED NoteAuthor:Danie Rothman DODate:08/06/22 Abnormal laboratory test (R8 9.9: Unspecified abnormal [...] Date:01/25/2023 01:00:00 PM Scheduled Provider:Jaclyn SON MD Location:[facility] [place] Appointment Type: Open Appointment Date:08/02/2023 11:00:00 AM Scheduled Provider: Location:[facility] [place] Appointment Type:FM Medicare Wellness Subsequent [facility]02-20-2023 Hospital Discharge instructions Patient Education 08/02/2022 13:20:26 [...] require a prescription and some youcan purchase jrvv-yrz-dnssciw. Medicines may have nicotine in them to [...] for support and encouragement. Call telephone quitlines (1-922-VUBS-NOW), reach out to support groups, or work [...] 05/24/2002 Document Revised: 08/17/2019 Document Reviewed: 08/18/2019 [employer] Patient Education 2020 iPling. 08/02/2022 13:20:24 Hypertension, Adult Hypertension, Adult High [...] care provider. This is important. Medicines Take buan-nwe-nvlfmkz and prescription medicines only as told by [...] 05/30/2006 Document Revised: 02/07/2019 Document Reviewed: 02/07/2019 [employer] Patient Education 2020 iPling. 08/02/2022 13:20:20 Health Maintenance After Age 65 [...] of the medicines you are taking, including shns-gua-rncchot medicines. Ask your health care provider about [...] ?You feel dizzy, sleepy, or off-balance. Take uuwj-uze-cayxbmn and prescription medicines only as told by [...] 04/12/2018 Document Revised: 09/20/2019 Document Reviewed: 04/12/2018 [employer] Patient Education 2019 iPling. [facility] [place] 12-20-2022 Evaluation note* Encounter Date Diagnosis Assessment Notes Treatment Notes Treatment Clinical Notes May, Tooth infection (ICD-10 - K04.7) Take medications as directed.Highly encourage patient to contact dentist SERGIO for further treatmentof infection. Do not take OTC medications like ibuprofen with prescriptions [employer] Other 10-03-2022 Procedure [facility]08-10-2022 Hospital Discharge instructions Patient Education 01/20/2022 20:22:08 Hyponatremia, Ohpn-pq-Mzji Hyponatremia Hyponatremia is when the amount of [...] symptoms. Follow these instructions at home: Take unnh-fxl-czkekue and prescription medicines only as told by [...] 02/09/2012 Document Revised: 08/16/2019 Document Reviewed: 05/03/2019 [employer] Patient Education 2020 [employer] Follow Up Care 07/23/2021 13:45:50 With:HUY LIM, LANCE Tadeo Address: [address] [place] [phone]- When:6 months [facility] [place] 07-11-2022 Evaluation note* Encounter Date Diagnosis Assessment Notes Treatment Notes Treatment Clinical Notes Dec, Polyp of ascending colon, unspec ified type (ICD-10 - K63.5) [employer] Other 05-16-2022 Hospital Discharge instructions Patient Education [...] water added (diluted fruit juice). Eat bland, usjb-dg-bllwlm foods in small amounts as you are able. These foods include bananas, applesauce, rice, lean meats, toast, and crackers. Avoid fluids that contain a lot of sugar or caffeine, such as energy drinks, sports drinks, and soda. Avoid alcohol. Avoid spicy or fatty foods. General instructions Take xqml-gzn-lzfgwif and prescription medicines only as told by your health care provider. Drink enough fluid to keep your urine pale yellow. Wash your hands often using soap and water. If soap and water are not available, use hand hides soaker. Make sure that all people in your [...] eating and drinking to prevent dehydration. Take aycd-ebk-pmekyyq and prescription medicines only as told by [...] 05/30/2006 Document Revised: 09/21/2019 Document Reviewed: 11/07/2018 Elsevier Patient Education 2020 Elsevier Inc. Follow Up Care 10/26/2021 11:29:31 With:Jaclyn SON MD, FAM Address: When: only if needed [facility] [place] 08-04-2021 History of Present illness Narrative* Alicia Sharma RN - 01/14/2021 9:59 AM EDT Report called to KIM Wilhelm at [facility] at this time. * Phuong Still LSW - 01/14/2021 8:37 AM EDT Pt discharged to [facility] today. Arranged transport for [employer] at 10:05 am. SW called and notified vimal Morgan of arrangements and she is in agreement. Nursing notified. SHANEL calledto [facility] and left a message for Olya in admissions regarding arrangements. Faxed discharge summary and HENS to Olya. No further needs identified. Phuong PATRICK SOA INTEGRATION DEVELOPER 01/14/2021 * Alicia Sharma RN - 01/14/2021 7:58 AM EDT Offered to get pt up to chair for breakfast; pt declines and states she canceled her breakfast trayas she doesn't eat breakfast . Pt educated on discharge time of 1000 with [facility] to go to [facility]. Pt concerned about daughter, Cathy, being made [...] documented, reviewed, and updated. CBC: Recent Labs 01/11/21205001/11/21205001/12/21 0455 01/13/21 0445 01/14/21 0440 WBC 12.1* -- 10.9 8.4 -- HGB 9.0* < > 8.8* 8.3* 8.3* PLT 109* -- 114* 124* -- < > = values in this interval not displayed. BMP: Recent Labs 01/12/2145401/13/21 0445 NA 135 135 K 4.6 4.8 CL [...] healing Closed hip fracture, right, initial encounter ([facility]) Aurelio Saldana MD, MD [facility] * Shannan Musa LSW - 01/13/2021 4:14 PM EDT Received word from [facility], Olya, carmel p.m. re: Patient pre cert being approved. Olya states that Patient can be admitted to [facility] as soon as tomorrow if she is medically stable for discharge. HENS completed per this expert medical writer today. JOEY Pendleton 01/13/2021 * Evette Mane, RN - 01/13/2021 8:57 AM EDT Patient [...] documented, reviewed, and updated. CBC: Recent Labs 01/11/21205001/12/21 0455 01/13/21 0445 WBC 12.1* 10.9 8.4 [...] Still LSW - 01/12/2021 3:14 PM EDT [facility] calls back and states that they will accept pt. [facility] will start pre cert with insurance this afternoon. Phuong KEENANW 01/12/2021 * Kala Cordero OT - 01/12/2021 2:10 PM EDT [facility] Occupational Therapy Evaluation Date: 01/12/2021 Patient [...] Ambulation Assistance: Independent Transfer Assistance: Independent Active Labor Operator: Yes IADL Comments: Active with daily household [...] Time Frame for Short term goals: STG=LTG long-term goals Time Frame for local intermodal truck driver goals : 5 days (01-16-2021) long-term goal 1: Patient to complete UB/LB bathing with set up local intermodal truck driver goal 2: Patient to complete UB/LB dressing with set up local intermodal truck driver goal 3: Patient to complete toileting task with supervision only. local intermodal truck driver goal 4: Patient to tolerate static standing x5 minutes without LOB in order to complete self care tasks. Plan Times per day: Daily (1-2x day) Weeks: 5 days Time In: 1305 Time Out: 1325 Timed Coded Minutes: 0 Total Treatment Time: 20 OLU Caballero/Karen 01/12/2021 * Phuong Still LSW - 01/12/2021 2:04 PM EDT SW received call back from r and they have decided to go with [facility] in [place] as her dtr works there as well. SW made referral to [facility] and faxed over information. Phuong Laureano FIGHT MANAGER SOA INTEGRATION DEVELOPER 01/12/2021 * Phuong Sitll LSW - 01/12/2021 1:45 PM EDT SW met with pt and daughters early this morning regarding placement and decisions about where they would like pt to go. They decided on [facility] TCU as first choice and [facility] secondary. SW called to [facility] and after many messages and phone contacts, the TCU at [facility] is no longer operating. Spoke with acute rehab admissions clinician at [facility] and she is willing to look at pt information. Although reports that the insurance pt carries will often not approve for their level of care. SW also spoke with [facility] this morning and they are also in networkand willing to look at pt information. SW called back to Cathy, vimal, and explained that first choice was no longer available and discussed the differences in acute rehab vs snf facility. Cathy wishes to talk with pt and will call SW back with an answer. SW will await return call. Phuong Laureano FIGHT MANAGER SOA INTEGRATION DEVELOPER 01/12/2021 * Rosemary Fuller S - 01/12/2021 11:08 AM EDT [facility] Date: 01/12/2021 Physical Therapy Daily Note [...] Good sitting balance to assist with self-care Stripper And Opaquer Apprentice Goals Time Frame for long-term goals : 10 days - expires 01/19/21 long-term goal 1: Transfer supine to sit with CG/min assist local intermodal truck driver goal 2: Transfer bed to chair or commode with wh walker and min assist local intermodal truck driver goal 3: Ambulate with wh walker 20-25 ft to bathroom for self-care [facility] LEAD RADIOLOGIC TECHNOLOGIST Date: 01/12/2021 * Lien Gerber RN - 01/12/2021 9:56 AM EDT Refuses nasal spray. Explained rational for spray- If I do that now I know I will vomit though denies nausea at this time. O2 decreased to 1L/NC. * Zaid Allen, RD, LD - 01/12/2021 8:36 AM EDT [...] loss Fluid Accumulation: No significant fluid accumulation Melter Helper Strength: Not Performed Estimated Daily Nutrient Needs: Energy (kcal): 3144-4263 (27-32); Weight Used for Energy Requirements: Current [...] Usual Body Weight: 100 lb (45.4 kg) Vining Body Weight: 105 lbs; % Vining Body Weight 99.5 % BMI: 19.8 Adjusted [...] Discharge Planning: Continue Oral Nutrition Supplement Contact: [phone] * Aurelio Saldana MD - 01/12/2021 6:23 [...] satisfy MIPS performance). Aurelio Saldana MD, MD [facility] * Brenda Newby RN - 01/11/2021 [...] on food choices due to ongoing nausea/emesis. Winston option choices given and encouraged. Patient advised to avoid carbonated drinks, spicy and acidic foods at this time. Pt verbalizes understanding. PRN IV med administered d/t Emesis. * Jolene Barrett RP - 01/11/2021 5:47 PM EDT Pharmacy Note [...] followed by Levofloxacin 250 mg IV daily Smiley KramerD, 01/11/2021 5:43 PM * Brenda Newby RN - 01/11/2021 5:[address] Martinez updated with lab result. New orders rec'd * Sonia Watson - 01/11/2021 9:38 AM EDT [facility] Date: 01/11/2021 Physical Therapy Daily Note [...] in chair Time In: 0855 Time Out: 919 Timed Coded Minutes: 25 [...] Good sitting balance to assist with self-care Stripper And Opaquer Apprentice Goals Time Frame for long-term goals : 10 days - expires 01/19/21 local intermodal truck driver goal 1: Transfer supine to sit with CG/min assist local intermodal truck driver goal 2: Transfer bed to chair or commode with wh walker and min assist local intermodal truck driver goal 3: Ambulate with wh walker 20-25 ft to bathroom for self-care tasks Sonia Watson LEAD RADIOLOGIC TECHNOLOGIST Date: 01/11/2021 * Trisha Yu APRN - CNP - 01/11/2021 9:05 AM EDT Department of Orthopedic Surgery [facility]RIST[facility] PattersonC Progress Note SUBJECTIVE Patient is sitting up at bedside with PT ready for transfer to recliner. She states her nausea and pain is [...] reactive. Repeat CBCtomorrow. Pain is managed with Mccracken and nausea is better after receiving Reglan. [...] 01/[address] Michelle. Pain managed with Mccracken , IV morphine. Consult PT and OT. [...] Also started on Protonix. Percocet changed to Mccracken and she seems to be tolerating better 7. Tobacco abuse -declined nicotine patch 8. Mild leukocytosis -possibly reactive. She has no fever. Patient has no complaints. We will follow-up with CBC tomorrow Patient continues to require inpatient admission related to need for IV fluids, monitoring labs, clinical condition Round[facility] Hospitalist * Maribel Estrada RN - 01/10/2021 8:48 PM EDT Appliance Worker calls and gives Dr. Lowry update on [...] nausea. Spoke with Dr Lowry and Trisha GARCIA about patient report of nausea from Percocet. Pain med order changed per Dr Lowry. Both FINANCE ACCOUNTING INTERNSHIP and physician conferred with regarding second unit of blood. Trisha informs this expert medical writer she will be in to round, will confirm need for second unit at that time. CBC drawn post first unit HgB 8.3. * Trisha Yu, PHOTOGRAPHER APPRENTICE LITHOGRAPHIC - MANAGER OF PHOTOGRAPHY - 01/10/2021 11:32 AM EDT Department of Orthopedic Surgery Trisha Yu [employer]-C Progress Note SUBJECTIVE Patient is post-op day [...] and will switch oral pain medication to Mccracken to see if patient tolerates better. Zofran [...] to Percocet and will switch it to Mccracken. Consult PT and OT 2. Acute anemia [...] and GERD -we will change Percocet to Mccracken, continue on IV fluids and as needed Zofran Start on Protonix 7. Tobacco abuse -declined nicotine patch Patient continues to require inpatient admission related to need for IV fluids, pain management, monitoring electrolytes, nausea and vomiting management [facility] Hospitalist * Cristela Currie, PT - 01/10/2021 10:19 AM EDT [facility] Physical Therapy Evaluation Date: 01/10/2021 Patient [...] Good sitting balance to assist with self-care local intermodal truck driver goals Time Frame for long-term goals : 10 days - expires 01/19/21 local intermodal truck driver goal 1: Transfer supine to sit with CG/min assist local intermodal truck driver goal 2: Transfer bed to chair or commode with wh walker and min assist local intermodal truck driver goal 3: Ambulate with wh walker 20-25 [...] Still LSW - 01/09/2021 4:21 PM EDT SHANEL met with pt this morning to complete assessment with information technology program manager during quality rounds. Pt is alert and oriented and cooperative with assessment. Pt is a 70 year old female admitted for comminuted intertrochanteric fracture of the proximal right femur. Pt is scheduled for surgery this afternoon. Pt lives alone in her apartment in [place]. Pt was not using any [facility] or community services prior to admission. Pt [...] based on facilities that accept her insurance. [place] of choice list provided as well. Pt chooses [facility]. SW made referral to [employer] and they will review and obtain insurance [...] surgical repair of hip. 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 Eats 2 meals [...] loss Fluid Accumulation: No significant fluid accumulation Melter Helper Strength: Not Performed Estimated Daily Nutrient Needs: Energy (kcal): 7637-9168 (27-32); Weight Used for Energy Requirements: Current [...] Usual Body Weight: 100 lb (45.4 kg) Vining Body Weight: 105 lbs; % Vining Body Weight 99.5 % BMI: 19.8 Adjusted [...] Discharge Planning: Too soon to determine Contact: [phone] * Alicia Sharma RN - 01/09/2021 9:46 [...] a living will or durable power of lath tier for healthcare? denies If yes do we have a copy on file? n/a Do you or your family have any questions or concerns we haven't already discussed? Denies Pt lives alone and is independent with ADL's. Pt given list of SNF and informed of local facilitiesthat take her insurance. Pt requests to contact [facility] in [place] in regards to discharge plan, she states her daughter lives outside of [place]. States PCP is Dr Son. Phuong COOK and expert medical writer present for rounding. * Maribel Estrada [...] calculated (Unknown ideal weight.). Estimated CrCl using Vining Body Weight: 24.01 mL/min (based on IBW [...] reach. Will continueto monitor. documented in this encounterConmio Phone: 1(931) 693-112307-30-2021 Hospital Discharge instructions* Discharge Instr - HYUN* [...] Emergency Contact: Cathy Bergman Mobile Relation: Child Recreational Vehicle Resort Manager needed? No Secondary Emergency Contact: Isabella Perry [facility] Relation: Child Recreational Vehicle Resort Manager needed? No Past Surgical History: No past surgical history on file. Immunization History: There is no immunization history on file for this patient. Active Problems: Patient Active Problem List Diagnosis Code Closed fracture of right hip with routine healing S72.001D Closed hip fracture, right, initial encounter ([facility]) S72.001A Isolation/Infection: Isolation No Isolation Patient Infection [...] Assisted Dressing Assisted Toileting Assisted Feeding Assisted Bottom Cager Assisted Med Delivery whole Wound Care Documentation [...] Readmission: 11 Discharging to Facility/ Agency Name: [facility] [address]: [address] [place], [place] [address] Dialysis Facility (if applicable) Name: Address: Dialysis Schedule: Phone: Fax: Supervisor Cigar Making Machine/Feather Sawyer signature: at 4:20 PM EDT PHYSICIAN SECTION Prognosis: {Prognosis:2149486691} Condition at Discharge: { Patient Condition:945572519} Rehab Potential (if transferring to Rehab): {Prognosis:7454355485} Recommended Labs or Other Treatments After Discharge: Physician Certification: I certify the above information and transfer of Lencho Candelario is necessary for the continuing treatment of the diagnosis listed and that she requires {Admit to Appropriate Level of Care:41220} for {GREATER/LESS:841076403} 30 days. Update Admission H&P: {CHP DME Changes in HandP:650526445} PHYSICIAN SIGNATURE: {Esignature:824751214} * Additional Instructions* Aurelio Saldana MD - 01/14/2021 Discharge Instructions Admission Date: 01/08/2021 Discharge Date: 01/14/21 Disposition: Home Activity: As tolerated Diet: General diet with nutritional supplements 3 times a day. Discharge Medication: Lencho Candelario Home Medication Instructions KAMRAN:[id number] Printed on:01/14/21611 Medication Information aluminum & magnesium [...] daily Discharge Instructions: Continue previous home medication. Mccracken 5/325: 1 tablet every 6 hours as [...] physician (Jaclyn Son MD) after discharge from [facility]. [facility] [employer] Work Phone: evaluation + Plan note Future Appointments Appointment Date:01/21/2022 01:20:00 PM Scheduled Provider:Jaclyn SON MD Location:[facility] [place] Appointment Type: Open [facility] [place] Evaluation + Plan note Future Appointments Appointment Date:07/29/2022 01:20:00 PM Scheduled Provider:Jaclyn SON MD Location:[facility] [place] Appointment Type: Open Future Scheduled Tests Laboratory* Potassium Level 01/21/22 [facility] [place] Evaluation + Plan note Future Appointments Appointment Date:07/29/2022 01:20:00 PM Scheduled Provider:Jaclyn SON MD Location:[facility] [place] Appointment Type:FM Open [facility] [place] Evaluation + Plan note Future Appointments Appointment Date:08/02/2022 01:00:00 PM Scheduled Provider: Location:[facility] [place] Appointment Type:FM Medicare Wellness Initial Appointment Date:01/25/2023 01:00:00 PM Scheduled Provider:Jaclyn SON MD Location:[facility] [place] Appointment Type:FM Open Future Scheduled Tests Laboratory* Pot[facility]ments Appointment Date:01/25/2023 01:00:00 PM Scheduled Provider:Jaclyn SON MD Location:[facility] [place] Appointment Type:FM Open Appointment Date:08/02/2023 11:00:00 AM Scheduled [facility]FM Medicare Wellness Subsequent Future Scheduled Tests Laboratory* Potassium Level 07/29/22 [facility] [place] Evaluation + Plan note Future Appointments Appointment Date:01/25/2023 01:00:00 PM Scheduled Provider:Jaclyn SON MD Location:[facility] [place] Appointment Type:FM Open Appointment Date:08/02/2023 11:00:00 AM Scheduled Provider: [facility] Type:FM Medicare Wellness Subsequent [facility] Plan note Future Appointments Appointment Date:08/02/2023 10:40:00 AM Scheduled Provider:Jaclyn SON MD Location:[facility] [place] Appointment Type:FM Open Appointment Date:08/02/2023 11:00:00 AM Scheduled Provider: Location:[facility] [place] Appointment Type:FM Medicare Wellness Subsequent [facility] [place] Evaluation + Plan note Future Appointments Appointment Date:08/03/2024 11:00:00 AM Scheduled Provider: Location:[facility] [place] Appointment Type:FM Medicare Wellness Subsequent Appointment Date:08/03/2024 11:40:00 AM Scheduled Provider:Jaclyn SON MD Location:[facility] [place] Appointment Type:FM Open [facility] [place] Evaluation note* Diagnosis Closed fracture of right hip, initial encounter ([facility]) Accidental fall, initial encounter Postoperative anemia Anemia, unspecified Renal insufficiency Unspecified disorder of kidney and ureter documented in this encounter [employer] Phone: evaluation note* Diagnosis Closed nondisplaced intertrochanteric fracture of right femur, initial encounter ([facility]) documented in this encounter [employer] Work Phone: evaluation note* Diagnosis Closed displaced intertrochanteric fracture of right femur with routine healing Aftercare for healing traumatic fracture of hip documented in this encounter [employer] Work Phone: evalplwajp noteNo assessment information available [facility] Work Phone: Evaluation noteNo InformationNort [employer] Other History and physical note Author Chance Beavers [facility] March 15, 2022 11:39amNote Date/TimeOct2021 11:39am[place] [address] Gastroenterology H&P Signed Patient: Lencho Candelario MR#: [id number] : 1950 Acct:[id number] Age/Sex: 71 / F Adm Date: 2 Loc: Room: Type: [facility] Attending Dr: Chance Beavers MD Copies to: MD Tony Bermeo MD~ Date of Service: 03/15/2022 HISTORY & PHYSICAL: Patient's history with special attention to the cardiovascular, pulmonary systems and the current problem was reviewed with the patient immediately prior to the procedure. Present medications and doses reviewed in the EMR. Allergies and pertinent laboratory tests were also re viewedat this time in the EMR. The physical [...] <Electronically signed by Chance Beavers MD> 03/15/22 1136 [facility] Work Phone: Hisbfzl general Narrative - Reported* Type Description Date Medical History GERD Medical Historycolon polypMedical HistoryCOPDSurgical Historyhysterectomy Surgical HistorycholecystectomySurgical Historyhip surgery (broken) [employer] Other Hiszbkp general Narrative - Reported* Type Description Date Medical History GERD Medical Historycolon polypMedical HistoryCOPDMedical HistoryKIDNEY DISEASE STAGE 3Surgical HistoryhysterectomySurgical HistorycholecystectomySurgical Historyhip surgery (broken)Hospitalization HistorySEE ABOVE [employer] Other Hospital course Narrative No data available for this section [facility] Discharge instructions No data available for this section [facility] Discharge instructions Additional Instructions DISCHARGE INSTRUCTIONS [...] NOT operate machinery such as power tools, [employer] mowers, [employer] blowers, sewing machines, etc. for 24 hours. [...] Follow up with PCP. - Office number [phone].[facility] Work Phone: Progress note No data available for this section [facility] [place] Reason for visit NarrativePT HERE AT REQUEST OF DR WILLIS FOR EVALUATION OF POLYP THAT COULDN'T BE REMOVED -DAUGHTER ARPITA WANTED CONSULT FIRST., REFERRAL NOTE [facility] So[employer] Other Advance Directives No Advanced Directives Records FoundLatest Code Status on File Code StatusDate ActivatedDate InactivatedCommentsFull Code01/09/2021 7:43 PMFull Code01/08/2021 9:24 PM01/09/2021 7:43 PMNameRelationshipHealthcare Agent RelationshipCommunicationTheresa PriceChildSecondary Decision Maker* Cathy BergmanChildPrimary Decision Maker* * * Code StatusDate ActivatedDate InactivatedCommentsFull Code01/09/2021 7:43 PM 01/14/2021 12:03 PMNameRelationshipHealthcare Agent RelationshipCommunication Isabella PriceChildSecondary Decision Maker* Cathy BergmanChildPrimary Decision Maker* * * NameRelationshipHealthcare Agent RelationshipCommunicationTheresa PriceChild Secondary Decision Maker* Cathy BergmanChildPrimary Decision Maker* * * NameRelationshipHealthcare Agent RelationshipCommunicationTheresa PriceChild Secondary Decision Maker* Cathy BergmanChildPrimary Decision Maker* * * NameRelationshipHealthcare Agent RelationshipCommunicationTheresa PriceChild Secondary Decision Maker* Cathy BergmanChildPrimary Decision Maker* * * Advance Directive Response Recorded Date/ Time Advance [...] for Visit (unrecogniz ed section and content) ReasonCommentsFallPt was walking in her kitchen and slipped on something on her floor landing on her right leg. Denies LOC or hitting her headStatusReason SpecialtyDiagnoses / ProceduresReferred By ContactReferred To Contact Diagnoses Closed hip fracture, right, initial encounter ([facility]) Isaias Lowry MD [address] [place], [place] [id number] [facility] Ordered Prescriptions (unrec ognized section and content) PrescriptionSigDispensedRefillsStart DateEnd Date levoFLOXacin (LEVAQUIN) 250 MG tablet Take 1 tablet by mouth daily for 5 days 5 tablet /02/2021 pantoprazole (PROTONIX) 40 MG tablet Take 1 tablet by mouth every morning (before breakfast) 30 tablet sennosides-docusate sodium (SENOKOT-S) 8.6-50 MG tablet Take 1 tablet by mouth 2 times daily 60 tablet polyethylene glycol (GLYCOLAX) 17 g packet Take 17 g by mouth daily as needed for Constipation 527 g /08/2020 docusate sodium (COLACE, DULCOLAX) 100 MG CAPS Take 100 mg by mouth daily 30 capsule guaiFENesin (MUCINEX) 600 MG extended release tablet Take 1 tablet by mouth 2 times daily 60 tablet sodium chloride (OCEAN, BABY AYR) 0.65 % nasal spray 2 sprays by Nasal route 4 times daily 1 Bottle ondansetron (ZOFRAN-ODT) 4 MG disintegrating tablet Take 1 tablet by mouth every 8 hours as needed for Nausea or Vomiting 30 tablet lactobacillus (CULTURELLE) capsule Take 1 capsule by mouth daily (with breakfast) 30 capsule enoxaparin (LOVENOX) 30 MG/0.3ML injection Inject 0.3 mLs into the skin daily 10 mL levalbuterol (XOPENEX) 1.25 MG/3ML nebulizer solution Take 3 mLs by nebulization every 4 hours as needed for Wheezing 30 mL budesonide-formoterol (SYMBICORT) 160-4.5 MCG/ACT AERO Inhale 2 puffs into the lungs 2 times daily 1 Inhaler aluminum & magnesium hydroxide-simethicone (MAALOX) 200-200-20 MG/5ML SUSP suspension Take 30 mLs by mouth every 6 hours as needed for Indigestion 1 Bottle HYDROcodone-acetaminophen (NORCO) 5-325 MG per tablet Indications:Closed hip fracture, right, initial encounter ([facility])Take 1 tablet by mouth every 6 hours as needed for Pain for up to 7 days. 30 tablet Scheduled Active and Recently Administ ered Medications (unrecognized section and content) Medication Order/ budesonide-formoterol (SYMBICORT) 160-4.5 MCG/ACT inhaler 2 puff 2 puff, Inhalation, 2 TIMES DAILY, First dose on Tue01/12/21 at 0800, Rinse mouth out with water (without swallowing) after every dose. * 0900 (Not Given - Provider: Natasha Yip RCP - Reason: Other - Comment: in ER) * 2003 (Given - Provider: Jyothi Jaimes RCP) * 0933 (Given - Provider: Natasha Yip RCP) * 210 (Given - Provider: Brenda Rubin RCP) * 0900 (Due - Provider: Natasha Yip RCP) * 2100 (Due - Provider: Natasha Yip RCP) docusate sodium (COLACE) capsule 100 mg 100 mg, Oral, DAILY, First dose on Tue01/12/21 at 0900, Do not crush or break. * 0836 (Given - Provider: Lien Gerber RN) * 0854 (Not Given - Provider: Evette Mane RN - Reason: Patient/family refused) * 0750 (Not Given - Provider: Alicia Sharma RN - Reason: Patient/family refused) enoxaparin (LOVENOX) injection 30 mg 30 mg, Subcutaneous, DAILY, First dose (after last modification) on Tue01/10/21 at 1900 * 0836 (Given - Provider: Lien Gerber RN) * 0855 (Given - Provider: Evette Mane, KIM) * 0749 (Given - Provider: Alicia Sharma, KIM) ferrous sulfate (IRON 325) tablet 325 mg (CANCELED) 325 mg, Oral, DAILY WITH BREAKFAST, First dose on Tue01/13/21 at 0800 * 0855 (Given - Provider: Evette Mane RN) guaiFENesin (MUCINEX) extended release tablet 600 mg 600 mg, Oral, 2 TIMES DAILY, First dose on Tue01/10/21 at 2100, Do not crush or break. * 0836 (Given - Provider: Lien Gerber RN) * 195 (Given - Provider: Negrita Garcia RN) * 0855 (Given - Provider: Evette Mane RN) * 2031 (Given - Provider: Michelle Montero, KIM) * 0750 (Given - Provider: Alicia Sharma RN) * 2100 (Due) lactobacillus (CULTURELLE) capsule 1 capsule 1 capsule, Oral, DAILY WITH BREAKFAST, First dose on Tue01/13/21 at 0800 * 0855 (Given - Provider: Evette Mane RN) * 0750 (Given - Provider: Alicia Sharma RN) levoFLOXacin (LEVAQUIN) 250 MG/50ML infusion 250 mg 250 mg, Intravenous, EVERY 24 HOURS, First dose on Tue01/12/21 at 1830, Until Discontinued * 181 (New Bag - Provider: Lien Gerber RN) * 1946 (Stopped - Provider: Negrita Garcia RN) * 1800 (New Bag - Provider: Lien Gerber, KIM) * 1909 (Stopped - Provider: Lien Gerber RN) * 1830 (Due) pantoprazole (PROTONIX) tablet 40 mg 40 mg, Oral, DAILY BEFORE BREAKFAST, First dose on Tue01/11/21 at 0700, Do not crush or break. * 0535 (Given - Provider: Maribel Estrada RN) * 0631 (Given - Provider: Negrita Garcia, RN) * 0558 (Given - Provider: Michelle Montero, RN) sennosides-docusate sodium (SENOKOT-S) 8.6-50 MG tablet 1 tablet 1 tablet, Oral, 2 TIMES DAILY, First dose on Tue01/09/21 at 2100, Post-op * 0836 (Given - Provider: Lien Gerber RN) * 1999 (Not Given - Provider: Negrita Garcia RN - Reason: Patient/family refused) * 0853 (Not Given - Provider: Evette Mane RN - Reason: Patient/family refused) * 2031 (Given - Provider: Michelle Montero RN) * 0749 (Not Given - Provider: Alicia Sharma RN - Reason: Patient/family refused) * 2099 (Due) sodium chloride (OCEAN, BABY AYR) 0.65 % nasal spray 2 spray 2 spray, Nasal, 4 TIMES DAILY, First dose on Tue01/12/21 at 0900 * 0956 (Not Given - Provider: Lien Gerber RN - Reason: Patient/family refused) * 1301 (Not Given - Provider: Lien Gerber RN - Reason: Patient/family refused - Comment: Dr. Rivera) * 1637 (Not Given - Provider: Lien Gerber RN - Reason: Patient/family refused) * 2001 (Not Given - Provider: Negrita Garcia RN - Reason: Patient/family refused) * 0854 (Not Given - Provider: Evette Mane RN - Reason: Patient/family refused) * 1318 (Not Given - Provider: Evette Mane RN - Reason: Patient/family refused) * 1639 (Not Given - Provider: Lien Gerber RN - Reason: Patient/family refused) * 2027 (Not Given - Provider: Michelle Montero RN - Reason: Patient/family refused) * 0751 (Not Given - Provider: Alicia Sharma RN - Reason: Patient/family refused) * 1300 (Due) * 1700 (Due) * 2100 (Due) sodium chloride flush 0.9 % injection [...] mL Midline or Central Line = 20 mL/lumen,Post-op * 0928 (Given - Provider: Lien Gerber RN) * 2000 (Given - Provider: Negrita Garcia, RN) * 0855 (Given - Provider: Evette Mane, RN) * 2027 (Not Given - Provider: Michelle Montero RN - Reason: Other - Comment: duplicate) * 2031 (Given - Provider: Michelle Montero RN) * 075 (Given - Provider: Alicia Sharma, KIM) * 2100 (Due) sodium chloride flush 0.9 % injection [...] Midline or Central Line = 20 mL/lumen * 0859 (Not Given - Provider: Lien Gerber RN - Reason: IV Fluid Infusing) * 2000 (Not Given - Provider: Negrita Garcia RN - Reason: Other) * 0942 (Not Given - Provider: Evette Mane RN - Reason: Other) * 2033 (Not Given - Provider: Michelle Montero RN - Reason: Other - Comment: IV flushed per order, this is duplicate) * 075 (Not Given - Provider: Alicia Sharma RN - Reason: Other) * 2100 (Due - Provider: Maribel Estrada RN) Medication Order///09/2020 0.9 % sodium chloride infusion 25 mL, [...] Moderate (4-6), Pain Severe (7-10), Starting on 01/10/21at 1113, Maximum dose of acetaminophen is 4000 mg from all sources in 24 hours. levalbuterol (XOPENEX) nebulizer solution 1.25 mg 1.25 mg, Nebulization, EVERY 4 HOURS PRN, Wheezing, Starting on [facility] 01/10/21 at 2100 * 2003 (Given - Provider: Jyothi Jaimes RCP) magnesium hydroxide (MILK OF MAGNESIA) 400 MG/5ML suspension 30 mL 30 mL, Oral, DAILY PRN, Constipation, Starting on Tue01/09/21 at 1943, First line therapy for constipation., Post-op metoclopramide (REGLAN) injection 5 mg 5 mg, Intravenous, EVERY 6 HOURS PRN, Nausea, Starting on 01/10/21 at 1609 * 0535 (Given - Provider: Maribel Estrada RN) * 0857 (Given - Provider: Evette Mane RN) morphine (PF) injection 2 mg 2 mg, Intravenous, EVERY 4 HOURS PRN, Pain Moderate (4-6), Pain Severe (7-10), Starting on Luz Elena 01/08/21 at 2124, If oral and IV narcotics ordered, use oral first and only use IV if oral is ineffectiveor cannot take oral. Do Not give oral and IV within 1 hour of each other unless specifically ordered. ondansetron (ZOFRAN) injection 4 mg(Linked Group 2) 4 mg, Intravenous, EVERY 4 HOURS PRN, Nausea, Vomiting, Starting on Tue01/09/21 at 0645, Administerif oral route cannot be used. ondansetron (ZOFRAN-ODT) disintegrating tablet 4 mg(Linked Group 2) 4 mg, Oral, EVERY 8 HOURS PRN, Nausea, Vomiting, Starting on Tue01/09/21 at 0645 oxyCODONE-acetaminophen (PERCOCET) 5-325 MG per tablet 1 tablet 1 tablet, Oral, EVERY 4 HOURS PRN, Pain Moderate (4-6), Pain Severe (7-10), Starting on Tue01/09/21at 0632, Maximum dose of acetaminophen is 4000 [...] 1943, After every IV line use, Post-op * 1816 (Given - Provider: Lien Gerber, RN) * 2000 (Given - Provider: Negrita Garcia RN) * 1800 (Given - Provider: Lien Gerber, RN) sodium chloride flush 0.9 % injection 5-40 mL 5-40 mL, Intravenous, PRN, Line Care, After every IV line use, Starting on Luz Elena 01/08/21 at 2124, ForLine Patency: Peripheral IV = 5 mL; Midline or Central Line = 10 mL/lumen. If following IV push medication, administer flush at same rate as the IV push. Flush volume is determined by type of infusion therapy being given. For non-viscous solutions use: Peripheral IV = 5 mL Midline or Central Line =10 mL/lumen For viscous solutions (i.e. blood components, parenteral nutrition, contrast media, or after obtaining blood sample) use: Peripheral IV = 10 mL Midline or Central Line = 20 mL/lumen Order Group 1: acetaminophen (TYLENOL) tablet 650 mgJump to med 650 mg, Oral, EVERY 6 HOURS PRN, Pain Mild (1-3), Fever, For temp greater than 100.4 F (38 C), Starting on Luz Elena 01/08/21 at 2124
Maximum dose of acetaminophen is 4000 mg from all sources in 24hours.
Or acetaminophen (TYLENOL) suppository 650 mgJump to [...] section and content) DATE CREATED AUTHOR 04/05/2021 [facility] DATE CREATED AUTHOR AUTHOR'S ORGANIZ ATION 04/26/2022 [facility] DATE CREATED AUTHOR AUTHOR'S ORGANIZ ATION 09/12/2022 [facility] DATE CREATED AUTHOR AUTHOR'S ORGANIZ ATION 04/04/2025 [facility] Care Team (unrecognized sect ion and content) Team Status: Inactive Member Role Status Dates Darryl Soto DO Attending Provider Active [place] Care ProviderActive Team Status: Active Member Role Status Dates Tony Son MD Primary Care Provider Active Team Status: Inactive Member Role Status Dates Tony Son MD Primary Care Provider Active Chance Beavers MDAttzunilda ProviderActive Goals (unrecognized section and content) Goals may [...] BE BASED ON THE PRIMARY CLINICAL RECORDS. [employer] [facility]. provides no warranty or guarantee of the accuracy or completeness of information in this document.
[2025-04-22 13:17] VITALS: BP 169/89; PULSE 79; O2SAT 96
[2025-04-22] MEDS: DEXAMETHASONE 4 MG TABLET 10 MG PO (13:53)
[2025-04-22 13:57] VITALS: BP 182/90; PULSE 80; O2SAT 98
--- NOTE | 2025-04-22 15:58 | ED_ITS ---
HPI HPI - General Adult General Chief complaint: Extremity Problem, Nontraumatic Stated complaint: R ARM PAIN & SWELLING, NECK PAIN Time Seen by Provider: 04/22/25 11:51 Source: patient Mode of arrival: walk-in Limitations: no limitations History of Present Illness HPI narrative: Patient is a 74-year-old female presenting to the emergency department for evaluation of right upper extremity pain. The patient was seen at urgent care just prior to her ED visit. They stated because she was having pain and possible swelling in the arm, she needed to come to the ED to get an ultrasound to rule out DVT. Patient states that she has been having pain in the right side of her neck rating down her right arm for the last 4 to 5 days. She states that Tylenol helps the pain considerably. She denies history of DVT/PE. She has no chest pain or shortness of breath. No hemoptysis, history of malignancy, or leg swelling/recent mobilizations. She denies any numbness/weakness in the upper ex tremity. She has no history of recent trauma. Related Data Home Medications ?Medication ?Instructions ?Recorded ?Confirmed amlodipine 2.5 mg tablet mg 04/22/25 sodium zirconium cyclosilicate 10 g PO 04/22/25 gram oral powder packet (Lokelma) umeclidinium 62.5 mcg-vilanterol inhalation 04/22/25 25 mcg/actuation powdr for inhalation Allergies Allergy/AdvReac Type Severity Reaction Status Date / Time No Known Drug Allergies Allergy Verified 04/22/25 14:03 Opioid HPI Opioid Management Most Recent Opioid Data: Last Pain Scale 4 Today, 12:02 Review of Systems ROS Status of ROS 10 or more systems reviewed and unremark able except as noted in history and below PFSH PFSH Social History Little interest or pleasure in doing things: not at all Feeling down, depressed, or hopeless: not at all Exam Narrative Exam Narrative: CONSTITUTIONAL: Well-appearing, answering questions and following commands appropriately SKIN: Was warm and dry. EYES: Sclerae white. EARS, NOSE, THROAT: Moist oral mucosa. RESPIRATORY: Clear to auscultation bilaterally, no wheezes, crackles, or stridor, no use of accessory muscles CARDIOVASCULAR: Normal rate and regular rhythm. There is no S3, S4, murmur, rub. 2+ radial pulses bilaterally. GASTROINTESTINAL: Abdomen is nondistended. MUSCULOSKELETAL: No midline C-spine tenderness. Positive Spurling test on the right. There is no peripheral edema/upper extremity swelling. Full range of motion of bilateral upper extremities. NEUROLOGIC: Patient is awake and alert. 5/5 strength in the right upper extremity throughout the major joints. Sensation intact to light touch in the bilateral upper extremities. Facies were symmetrical. Constitutional Vital Signs, click to edit/add: Last Vital Signs Temp 97.7 F 04/22/25 11:47 Pulse 80 04/22/25 13:57 Resp 16 04/22/25 13:57 BP 182/90 H 04/22/25 13:57 Pulse Ox 98 04/22/25 13:57 O2 Del Method Room Air 04/22/25 13:57 Course Vital Signs Vital signs: Vital Signs Temperature 97.7 F 04/22/25 11:47 Pulse Rate 110 H 04/22/25 11:47 Respiratory Rate 18 04/22/25 11:47 Blood Pressure 180/98 H 04/22/25 11:47 Pulse Oximetry 100 04/22/25 11:47 Oxygen Delivery Method Room Air 04/22/25 11:47 Temperature 97.7 F 04/22/25 11:47 Pulse Rate 80 04/22/25 13:57 Respiratory Rate 16 04/22/25 13:57 Blood Pressure 182/90 H 04/22/25 13:57 Pulse Oximetry 98 04/22/25 13:57 Oxygen Delivery Method Room Air 04/22/25 13:57 Medical Decision Making [facility] Narrative Medical decision making narrative: Patient is a 74-year-old female presenting to the emergency department for a 4 to 5-day history of right-sided neck pain radiating down her right arm. Her vital signs are within normal limits. She is afebrile and hemodynamically stable. The right upper extremity is neurovascularly intact without edema. Though the urgent care was concern for DVT, she has no risk factors to develop a deep vein thrombosis. Clinically, her presentation is more consistent with cervical radiculopathy. She has no other systemic symptoms such as chest pain or shortness of breath. I did order a duplex ultrasound of the right upper extremity to rule out DVT. Duplex ultrasound of the right upper extremity demonstrated no evidence of acute DVT. I do believe the patient is stable for discharge. Patient's presentation is most likely consistent with cervical radiculopathy. She was given a dose of dexamethasone here in the ED for symptomatic treatment. They were instructed to follow up with PCP for further care. Return precautions were given including any new or worsening symptoms. Patient understands and agrees to the plan. FINAL IMPRESSION: #Acute right-sided cervical radiculopathy DISPOSITION: Discharged home CONDITION: Good Imaging Data Duplex MEREDITH US: Attestation: I personally reviewed and interpreted this imaging study as follows: Discharge Plan Discharge Chief Complaint: Extremity Problem, Nontraumatic Clinical Impression: Cervical radiculopathy Patient Disposition: Home, Self-Care Time of Disposition Decision: 13:44 Condition: Good Mode of Transportation: Private Vehicle Prescriptions / Home Meds: No Action amlodipine 2.5 mg tablet umeclidinium-vilanterol 62.5-25 mcg/actuation blister with device INHALATION Lokelma 10 gram powder in packet PO Print Language: Kyrgyz Instructions: Cervical Radiculopathy (ED) Referrals: Carlyle Jacinto MD [Primary Care Provider] - 1 week Discharge Date/Time: 04/22/25 14:03
== END 2025-04-22 14:03 | disposition home or self-care (01) ==
PROVIDERS: Emergency Provider Student in an Organized Health Care Education/Training Program; PCP Family Medicine
DX: M54.12 Radiculopathy, cervical region (principal)
CPT/HCPCS: 93971; 99284; J8540

== ENCOUNTER 2025-06-11 13:22 | Outpatient (OUT) | payer MEDICARE, MEDICAID, SELFPAY ==
--- OUTSIDE RECORDS SUMMARY | 2025-06-11 13:25 | XMS_ITS | Clinical Summary ---
Author Organization [facility] Address [address] [place] [address] Care Team Providers Care Internal Controls Consultant Name Role Phone Unavailable Primary Care Provider Unavailabl e Social History Tobacco UseTypesPacks/DayYears UsedDateSmoking Tobacco: Never Assessed CommentsUnknownSex and Gender InformationValueDate RecordedSex Assigned at Not on fileLegal CedQrdvqm92/15/2023 11:22 PM EDTGender IdentityNot on file Sexual OrientationNot on file Last Filed Vital Signs Vital SignReadingTime TakenCommentsBlood Mhvuzjze306/7306/15/2021 12:00 PM EST Pulse--Temperature--Respiratory Rate--Oxygen Saturation--Inhaled Oxygen Concentration--Fupvvu20.8 kg (90 lb)06/15/2021 12:00 PM JLTAmpajl252.9 cm (5' 1 )06/15/2021 12:00 PM ESTBody Mass Index17.01006/15/2021 12:00 PM EST Plan of Treatment Not on file Insurance
--- OUTSIDE RECORDS SUMMARY | 2025-06-11 13:25 | XMS_ITS | Continuity of Care Document ---
Author Organization [facility] Address [address] [place] [address] Phone [phone] Care Team Providers Care Mechanical Lead Name Role Phone Carlyle Jacinto MD Care Team Information Rece iver [phone] Problems Active Problems Provider Date Body mass [...] Range N ote .Renal Panel-lab rock/quest 02/12/2025 [facility] [place] [phone].Albumin3.5.Calcium8.9.Carbon Rsplryj68.5.Nqstshht743.Phosphorus 4.2.Potassium5.1.Lvzepq591.BUN31.0.GFR25.Creatinine-LC1.96.Hemoglobin And Afygnemqxl50/02/2025[facility] [phone].Hemoglobin Blood10.5.Szttezwadv07.8.Urine Protein/Creat. Random [address] [place] [phone].Urine Protein Wddhfa43.3.Urine Creatinine Hojjyk22.81.Urine Prot/Creat Ratio1.73.Hemoglobin And Hflarycjfp25/10/[address] [place] [phone].Hemoglobin Blood10.8.Ijsbrzhyvq83.2.Ymwjjvuhu42/10/[address] [place] [phone].Magnesium1.8.Renal Panel[address] [place] [phone].Albumin3.4.Calcium9.4.Carbon Bjchjzm02.3.Nwigoiql899.Phosphorus 4.2.Potassium4.8.Jzyyzs270.BUN28.0.GFR Gpqtsnzaf92Ghap53.Creatinine-LC1.85.Urine Protein/Creat. [address] [place], [place] [phone].Urine Protein Bdidpv79.9.Urine Creatinine Ufyjyl12.20.Urine Prot/Creat Ratio1.82.Renal Panel[address] [place] [phone].Albumin3.1.Calcium9.2.Carbon Cyqnxvl46.5.Ewdtclmm424.Phosphorus 4.0.Potassium5.4.Axxzlo781.BUN27.0.GFR Vdyjmrtdx96Hhfg59.Creatinine-LC1.88.Ua [address] [place], [place] [phone] AppearanceCLEARUa BilirubinNEGATIVEUa BloodSMALLUa ColorLT. YELLOWUa GlucoseNEGATIVEUa KetonesNEGATIVEUa LeukoNEGATIVEUa NitriteNEGATIVEUa PH Test Strip6.0Ua Pagpciz927Iy SourceCLEAN CATCHUa Specific Gravity1.025Ua Urobilinogen0.2.Urine Protein/Creat. K[address] [place] [phone].Urine Protein Fdfgvg489.6.Urine Creatinine Yxetsx486.81.Urine Prot/Creat Ratio1.09.Urine Protein/Creat. V[address]qya[address] [place], [place] [phone].Urine Protein Rffchz64.9.Urine Creatinine Cxzspz65.28.Urine Prot/Creat Ratio3.56.Renal Panel10/18/2023[facility] [phone].Albumin3.1.Calcium8.8.Carbon Ntbeeqt24.9.Xmyxystl914.Phosphorus 4.6.Potassium5.0.Ymemwe215.BUN27.0.GFR Wdkoeltsa72Cblx51.Creatinine-LC1.84.Renal Panel08/02/2023[facility] [phone].Albumin3.7.Calcium9.4.Carbon Pnlowlz50.Bnyauyje081.Potassium5.1 .Tkwgou520.BUN27.GFR Qmgjzwgbq86Wthi25.Creatinine-LC1.9.Renal Panel06/07/2023 [facility] [phone].Albumin3.1.Calcium9.4.Carbon Ebkygvi73.6.Epxuwmjh743.Phosphorus 3.6.Potassium4.7.Xmzucb815.BUN30.0.GFR Ionwgswhx21Labo11.Creatinine-LC1.71 .Esqxzocpr04/26/2023[facility] [phone].Magnesium1.9.Urine Protein/Creat. Lgeyho1603/21/[address] [address] [phone].Urine Protein Ngyoqr03.3.Urine Creatinine Fzaeek39.49.Urine Prot/Creat Ratio1.88.Renal Panel03/21/[address] [address] [phone].Albumin3.1.Calcium8.5.Carbon Rktuixl86.2.Phfowmqz741.Phosphorus 4.6.Potassium5.5.Bbtkzd784.BUN23.GFR Gyhimpkeq11Plsf73.Creatinine-LC1.72.Ua 03/21/2023[facility] [address] [place] [address] [phone] AppearanceCLEARUa Bilirubin-Ua BloodSMALLUa ColorLT YELLOWUa Glucose-Ua Ketones-Ua Leuko-Ua Nitrite-Ua PH Test Strip6.0Ua Qllirwy03Bd Source CLEAN CATCHUa Specific Gravity1.010Ua Urobilinogen0.2.Renal Panel12/13/2022 [facility] [phone].Albumin3.2.Calcium8.8.Carbon Gkltkfw06.9.Wxrvmeji629.Phosphorus 3.7.Potassium4.8.Lddpzs196.BUN25.0.GFR Heewdiwvl88.Creatinine-LC1.96.Renal Panel 11/30/[address] 9168279 [phone].Albumin3.0.Calcium9.2.Carbon Gaeitwx42.7.Phhbtati790.Phosphorus 4.0.Potassium4.0.Nkurlo415.BUN24.GFR Epibuhgis65Mmpa55.Creatinine-LC1.91.Ua 11/30/2022[facility] [address] [place] [address] [phone] AppearanceSL CLOUDYUa Bilirubin-Ua BloodMODERATEUa ColorLIGHT YELLOWUa Glucose-Ua Ketones-Ua Leuko-Ua Nitrite-Ua PH Test Strip6.0Ua Protein >=300Ua SourceCLEAN CATCHUa Specific Gravity1.025Ua Urobilinogen0.2.Urine Protein/Creat. Vhroqb5111/30/[address] 4746944 [phone] Protein Piuygy498.1.Urine Creatinine Vbvuyl473.14.Urine Prot/Creat Ratio1.64.Wojrhbxte64/29/2023[facility] [phone].Potassium4.4.Bpaeqbnqe20/29/2023[facility] [phone].Magnesium1.6.Renal Panel[address] [place] [address] [phone].Albumin3.4.Calcium9.2.Carbon Jzfdcwp85.1.Gxnmjghz506.Phosphorus 3.3.Oqqett161.BUN21.GFR Hvmlcyujo36Ahtv63.Creatinine-LC1.70.Renal Panel [facility] [phone].Calcium9.3.Carbon Nznumqe92.Tnydptvy234.Potassium6.0.Yclxat288 .BUN27.GFR Troidwedi76.Creatinine-LC1.5.Renal Panel2[facility] [facility] [employer] [phone].Albumin3.3.Calcium9.1.Carbon Fquamtk35.4.Uccdmtxg11.Phosphorus4.2 .Potassium5.3.Qqcuti747.BUN19.GFR32.GFR Qvalamalo61.Creatinine-LC1.58.Urine Protein/Creat. Mzmjmt9211/10/20[facility] [phone].Urine Protein Ayvnpp44.2.Urine Creatinine Hhdyfr60.88.Urine Prot/Creat Ratio0.87.Ua11/10/2021[facility] [phone] AppearanceclearUa Bilirubin-Ua BloodmoderateUa Glucose-Ua Ketones-Ua Nitrite-Ua PH Test Strip6.0Ua Eemypyw79Df Specific Gravity1.010.Renal Panel06/30/2021[facility] [address] [place] [address] [phone].Albumin3.9.Calcium9.8.Carbon Jyeczsb90.Ydaopfjf62.Phosphorus4.1 .Potassium4.5.Obkjhm644.BUN19.GFR Uouboywtn69Ovmt30.Creatinine-LC1.6 .Urinalysis-Owqpdop4106/30/[address] [address] [phone] Specific Bronson>=1.030Ua PH Test Strip5.5Ua ColoryellowUa Appearancesl cloudyUa WBC6-15Ua Protein2+Ua GlucosenegUa KetonesnegUa Bilirubin negUa Urobilinogen0.2Ua NitritenegUa Occult Blood2+.Free Light Klzvgj0206/30/[address] [address] [phone] Light Chains QN Ser85.4Lambda Light Chain QN Ser35.0.Urine Protein/Creat. Vifvxj1806/30/2021[facility] [address] [place] [address] [phone].Urine Protein Msenjc296.0.Urine Creatinine Srlxmm613.4.Urine Prot/Creat Wybkm576.80.Complement C406/30/[address] [address] [phone].Complement C424.Ybxpqsmrub53/18/2022[facility] [address] [place] [address] [phone].Dmhorcwjlw66.1.Ipth06/30/2021[facility] [address] [place] [address] [phone].Ipth30.Anti-Myeloperoxidase Abs06/30/2021[facility] [address] [place] [address] [phone].Anti-Myeloperoxidase Abs<9.0.Hemoglobin Blood06/30/2021[facility] [address] [place] [address] [phone].Hemoglobin Blood12.3.Complement C306/30/[address] [address] [phone].Complement C3120.Skss-Hadqwbvefj-3 AB06/30/[address] [address] [phone].Fdwa-Vwjofokutf-3 AB<3.5.Renal Panel06/09/[address] [address] [phone].Albumin3.7.Calcium9.5.Carbon Rupedxg56.Kfboqlgh73.Potassium4.7 .Jqawmy214.BUN27.GFR Qpcypmcms40Kwwz12.Creatinine-LC1.6.BMP W/Egfr-LC04/21/2021 [facility] [phone].Uwtead312.Potassium5.3.Dtygwkts613.Carbon Ytqavmx09.GFR30 .Creatinine-LC1.7.QIM49Ybddvpghi57/28/0491Q7S/CCD Imports eGFR49 mL/min/1.14i0Bsq>=59mL/min/1.73 m2eGFR Aa59 mL/min/1.73m2>=59mL/min/1.73 b5Wlrfjclfp62/28/4347Q2Q/CCD Imports BUN12 mg/dL5-40Wyytsudinq6.1 mg/dL0.5-1.3Sodium Wnp593 mmol/ODyn828-022Zgxlkqhxy Lvl3.9 mmol/L3.5-5.9Evhwtnfo30 mmol/QAhk675-182Qw957 mmol/Y49-63Oonj56 mEq/L6-16 BUN/Creat Ratio11 110-20Calcium Lvl8.7 mg/dLLow8.9-11.1Glucose Txe298 mg/dL 55-368Xfpmyvhxvc91/28/6702F2F/CCD Imports Neutro Auto65.0 %36.0-75.0Lymph Auto25.0 %14.0-50.0Mono Auto6.7 %4.0-14.0Eos Auto2.5 %0.0-8.0Basophil Auto0.8 %0.0-2.0Neutro Absolute4.5 E9/L2.0-7.5Lymph Absolute1.7 E9/L1.0-4.0Mono Absolute0.5 E9/L0.2-1.0Eos Absolute0.2 E9/L0.0-0.5 Basophil Absolute0.1 E9/L0.0-0.2Lewwitfmqz69/28/0676I1Q/CCD Imports WBC7.0 E9/L4.0-11.0RBC3.0 E12/LLow4.3-5.9Hgb8.8 g/dLLow12.0-16.0Hct25.4 %Low 34.0-46.0RDW16.7 %High10.9-14.2MCH29.0 pg27.0-34.3YZIM28.5 g/dL31.4-36.0MCV84.1 fL80.0-100.0MPV8.1 fL6.4-10.3Ixljrnlt297.0 E9/L150.0-500.7Pkkagvkvc37/27/2021 N2N/CCD Imports Sodium Rqj910 mmol/WIow899-631Rkehhgstj05/27/1394O8T/CCD Imports eGFR55 mL/min/1.23q3Ojp>=59mL/min/1.73 m2eGFR Aa>60 mL/min/1.73m2>=59mL/min/1.73 z9Gurcbujwe60/27/3592F2O/CCD Imports BUN14 mg/dL5-35Osjlwkkgig7.0 mg/dL0.5-1.3Sodium Ycc909 mmol/SVbz102-814Zqrtxbjyv Lvl4.2 mmol/L3.5-5.6Xphsfemp25 mmol/UElb414-775Wf420 mmol/U33-71Erls7 mEq/L6-16 BUN/Creat Ratio14 110-20Calcium Lvl8.6 mg/dLLow8.9-11.1Glucose Lvl97 mg/pJ25-153 Abjpdezou06/26/7971X4E/CCD Imports Potassium Lvl4.3 mmol/L3.5-5.9Hegfkuuu06 mmol/USgv739-197Hz708 mmol/Y52-40Vmxm40 mEq/L6-37Fcoogetaaw01/26/4094X7G/CCD Imports Hgb8.8 g/dLLow12.0-16.0Hct26.4 %Low34.0-46.1Knydkaedjw47/25/8211H6R/CCD Imports WBC7.7 E9/L4.0-11.0RBC3.0 E12/LLow4.3-5.9Hgb8.4 g/dLLow12.0-16.0Hct24.8 %Low 34.0-46.0RDW16.2 %High10.9-14.2MCH27.5 pg27.0-34.4PEQP37.8 g/dL31.4-36.0MCV81.5 fL80.0-100.0MPV8.1 fL6.4-10.5Evgyqnda375.0 E9/L150.0-500.3Sockoyxlq55/25/2021 N2N/CCD Imports BUN18 mg/dL5-50Mowhaylkdm7.0 mg/dL0.5-1.3BUN/Creat Ratio18 110-20Calcium Lvl8.2 mg/dLLow8.9-11.1Glucose Lvl92 mg/dG46-335tUFW81 mL/min/1.75n3Yif>=59mL/min/1.73 m2eGFR Aa>60 mL/min/1.73m2>=59mL/min/1.73 w9Rkqbkalcxo09/25/0983A1P/CCD Imports Neutro Auto63.3 %36.0-75.0Lymph Auto25.1 %14.0-50.0Mono Auto8.6 %4.0-14.0Eos Auto2.1 %0.0-8.0Basophil Auto0.9 %0.0-2.0Neutro Absolute4.9 E9/L2.0-7.5Lymph Absolute1.9 E9/L1.0-4.0Mono Absolute0.7 E9/L0.2-1.0Eos Absolute0.2 E9/L0.0-0.5 Basophil Absolute0.1 E9/L0.0-0.4Lcrrrrippp58/24/9459Y8M/CCD Imports WBC7.4 E9/L4.0-11.0RBC3.5 E12/LLow4.3-5.9RDW16.1 %High10.9-14.2MCH27.5 pg 27.0-34.9PWBC98.9 g/dL31.4-36.0MCV80.9 fL80.0-100.0MPV8.9 fL6.4-10.8Platelet 290.0 E9/L150.0-500.9Dayhimkxi72/24/9863Z0S/CCD Imports Magnesium1.5 mg/dL1.3-2.8Zqayvijosi93/24/7180H7P/CCD Imports Neutro Auto72.2 %36.0-75.0Lymph Auto16.3 %14.0-50.0Mono Auto10.7 %4.0-14.0Eos Auto0.5 %0.0-8.0Basophil Auto0.3 %0.0-2.0Neutro Absolute5.4 E9/L2.0-7.5Lymph Absolute1.2 E9/L1.0-4.0Mono Absolute0.8 E9/L0.2-1.0Eos Absolute0.0 E9/L0.0-0.5 Basophil Absolute0.0 E9/L0.0-0.5Hmpxbjmxu57/23/5777X5V/CCD Imports U Kvlquewfie662 mOsm/cx02-1807Aazpasivk06/23/1082Y4B/CCD Imports U Sprouq76 mmol/FIxyqcmttcg27/23/9105V4F/CCD Imports Ua Spec Desc0.2 Eu/dLUa Color0-5 /HPFYellowUa Clarity0-3 /HPFClearUa Spec Grav3- 4 /HPF1.005-1.117Bitogldus13/23/7589P8A/CCD Imports Xldjgbkcgs914 mOsm/oxNzj162-094BRR6.90 mcIU/mL0.34-5.60Reference Laboratory Uqjcsna7902/02/2021N2N/CCD Imports Xxyriljn19.2 g/cE7Sajqudmin29/23/5280W1X/CCD Imports Alt16 [iU]/d6-80Rte67 [iU]/d5-43Albumin Lvl3.2 g/dLLow3.3-5.0Alk Snlm149 [iU]/d Vuau43-06Pnjq Total0.8 mg/dL0.0-1.1Total Protein6.6 g/dL6.0-7.2Lsnyhilk3.4 g/dL 1.4-4.0A/G Ratio0.9Low1.1-2.2Bili Direct0.2 mg/dL0.1-0.4Bili Indirect0.6 mg/dL 0.1-0.5Hvlczairm54/22/3153J0Q/CCD Imports Troponin4.80 pg/mLLow10.10-27.10 1 Result Comment: Truong isol AM 6.2 - 19.4 Encounters Type Date Location Provider Dx Diagnosis Office Visit 09/03/2024 1:00p [facility]DIA Carreno I12.9 Hypertensive chronic kidney disease w stg 1-4/unsp chr kdny N18.4 Chronic kidney disea se, stage 4 (severe) I10 Essential (primary) hypertension E87.5 Hyperkalemia Office Visit 02/22/2024 2:20p [place] [facility] NYDIA Bojorquez I12.9 Hypertensive chronic kidney disease w stg 1-4/unsp chr kdny E87.5 Hyperkalemia N18.4 Chronic kidney disea se, stage 4 (severe) Office Visit 10/27/2023 1:20p [place] [facility] Franklin soria MD I12.9 Hypertensive chronic kidney disease w stg 1-4/unsp chr kdny E87.5 Hyperkalemia N18.4 Chronic kidney disea se, stage 4 (severe) Office Visit 06/22/2023 2:30p [place] [facility] Sonia Whitney I12.9 Hypertensive chronic kidney disease w stg 1-4/unsp chr kdny E87.1 Hypo-osmolality and hyponatremia N18.32 Chronic kidney disea se, stage 3b E87.5 Hyperkalemia R80.9 Proteinuria, unspeci fied Office Visit 03/31/2023 1:00p [place] [facility] Franklin soria MD I12.9 Hypertensive chronic kidney disease w stg 1-4/unsp chr kdny E87.1 Hypo-osmolality and hyponatremia N18.32 Chronic kidney disea se, stage 3b E87.5 Hyperkalemia R80.9 Proteinuria, unspeci fied Office Visit 09/02/2022 3:00p [place] [facility] Sonia Whitney E87.1 Hypo-osmolality and hyponatremia I10 Essential (primary) hypertension N18.32 Chronic kidney disea se, stage 3b E87.5 Hyperkalemia Office Visit 11/17/2021 9:40a [place] [facility] Franklin soria MD E87.1 Hypo-osmolality and hyponatremia I10 Essential (primary) hypertension N18.32 Chronic kidney disea se, stage 3b Office Visit 07/21/2021 2:40p [place] [facility] Franklin soria MD E87.1 Hypo-osmolality and hyponatremia I10 Essential (primary) hypertension N18.32 Chronic kidney disea se, stage 3b Office Visit 06/18/2021 11:40a [place] [facility] Franklin aguilar MD E87.1 Hypo-osmolality and [...] NYDIA Carreno 09/03/2024 E87.5 Hyperkalemia Paulina noble, [employer] 02/22/2024 I12.9 Hypertensive chr onic kidney disease with stage 1 through stage 4 chronic kidney disease, or unspecified chronic kidney disease NYDIA Carreno 02/22/2024 E87.5 Hyperkalemia Paulinadeborah noble, [employer]GICAL GARMENT ASSEMBLER-C 02/22/2024 N18.4 Chronic kidney disease, stag e [...] e 3b Devonte, Sonia 12/08/2022 E87.5 Hyperkalemia oSnia Whitney 12/08/2022 R80.9 Proteinuria, unspecified Jam franny, [...] Chronic kidney disease, stag e 3b Franklin aJma MD 07/21/2021 E87.1 Hypo-osmolality and hyponatr anjum [...] 02/06/2021 R11.2 Nausea with vomiting, unspec ified Jin Daniel M.D. 02/06/2021 I10 Essential (primary) trini boatengjuanpablo Daniel M.D. 02/06/2021 E78.5 Hyperlipidemia, unspecified Jin [...]
--- OUTSIDE RECORDS SUMMARY | 2025-06-11 13:25 | XMS_ITS | Patient Health Record ---
Author Organization [facility] Address [address] [place] [address] Care Team Providers Care Field Map Editor Name Role Phone Dr Carlyle Jacinto Primary Care Provider Unav Jim Albright Unavailable [phone] Allergies Allergen (clinical drug ingredient) Drug/Non Drug Allergy documented on EMR Reaction Allergy Type Onset Date Status codeine codeine Unknown Drug Allergy Active Reason For Referral No Information Medications Medication SIG (Take, Route, Frequency, Duration) Notes Start Date End Date Status None Active Social History Tobacco Use: Social History Observation Description Date Details (start date - stop date) Current Smoker NA - NA Smoking History Question Answer Notes Smoking Status Current Smoker Problems Problem Type SNOMED Code ICD Code Onset Dates Problem Status W/U Status Risk Notes Problem Displaced intertrochanteric fracture of right femur, subsequent encounter for closed fracture with routine healing (S72.141D)ActiveconfirmedProblemArthralgia of the pelvic region and thigh (211832248)Acute right hip pain (M25.551)Active confirmedProblemFall on same level from slipping (710317782)Fall on same level from slipping, initial encounter (W01.0XXA)ActiveconfirmedProblemClosed intertrochanteric fracture (15527687)Closed comminuted intertrochanteric fracture of right femur, initial encounter (S72.141A)Activeconfirmed Plan Of Treatment No Information Insurance Providers Payer Name Payer Address Payer Phone Subscriber Number Group Number Insured Name Patient Relationship to Insured Coverage Start Date Coverage End Date Medicare [employer] [address] [place] [id number] SAM CANDELARIOelf - [facility] Dept of [address] [place] [id number], PATRICIASelf - patient is the insured Medical (General) History Medical History History ICD Code Asthma/COPD Yes Drug Allergies: YesSurgical History Surgery Date(Month/Year) GALL BLADDER Right intertrochanteric hip fracture cephalomedullary wqqstyj74/2021
[2025-06-11 13:34] LABS: Hematocrit 34.6 % (36.0-48.0); Hemoglobin 10.6 g/dL (12.0-16.0)
[2025-06-11 13:49] LABS: Protein Creatinine Ratio Urine 1.38; Total Protein Urine Random 53.8 mg/dL (<=11.9)
[2025-06-11 14:20] LABS: Albumin Level 3.3 g/dL (3.4-5.0); Anion Gap 13.8; Blood Urea Nitrogen 32.0 mg/dL (7.0-18.0); Calcium 8.7 mg/dL (8.5-10.1); Carbon Dioxide 28.1 mmol/L (21.0-32.0); Chloride 102 mmol/L (98-107); Estimated GFR (African America 27 (>=60 mL/min/1.73m^2); Estimated GFR (Non-African Ame 23 (>=60 mL/min/1.73m^2); Glucose 121 mg/dL (74-106); Magnesium 2.0 mg/dL (1.8-2.4); Potassium 4.9 mmol/L (3.5-5.1); Sodium 139 mmol/L (136-145)
--- OUTSIDE RECORDS SUMMARY | 2025-06-11 14:53 | XMS_ITS | CCD ---
Author Organization [facility] Inform ion Partnership [facility] Care Team Providers Care Management Trainee Marketing Name Role Phone Jaclyn Son MD Primary [...] Provider MD Tony Son Primary Care Provider [phone] MD Chance Beavers Attending Provider [phone] MD Tony Son Primary Care Provider [phone] MD Chance Beavers Attending Provider Chance Beavers [...] Unavailable DR JASMIN AMEZCUA Primary Care Unavailable [facility] [place] DO[facility] Consulting Unavailable CATHY ROONEY Consulting Unavailable MISC, DOCTOR Admitting Unavailable MISC, DOCTOR Attending Unavailable DR JASMIN AMEZCUA Primary Care Unavailable [facility] [place], DOCTOR Consulting Unavailable Shannan Alfaro Unavailable Jaclyn SON Attending Unavailable Jaclyn SON Attending Unavailable Jaclyn SON Attending Unavailable Jaclyn SON Attending Unavailable Allergies Allergy ClassificationReported Allergen(s)Allergy TypeDate of OnsetReaction(s) FacilityOpioid Agonists (3 sources)CodeineDrug Nexguzf07-38-9264[facility] (20 sources)Codeine; Translations: [codeine]Drug Jahaljy43-01-2469Svqzb pain (finding)[facility] [employer] (1 source)CodeineDrug Qomyvij25-93-7245Ouz [facility] Repository Medications Current Medications MedicationDrug Class(es)DatesSig (Normalized)Sig (Original)Acetaminophen (1 source)Start: 26-88-4175sxumahhftvour (TYLENOL) tablet 650 mgacetaminophen 325 mg / HYDROcodone bitartrate 5 mg oral tablet (2 sources)Opioid AgonistStart: 01-13-2021 End: 25-93-7316zues 1 tablet by mouth every six hours as needed for pain HYDROcodone-acetaminophen (NORCO) 5-325 MG per tablet Indications: Closed hip fracture, right, initial encounter (HCC) Take 1 tablet by mouth every 6 hours as needed for Pain for up to 7 days. 30 tablet 0 01/13/2021 01/20/2021 Active Start: 67-79-1328LPWYQtzubeu-acetaminophen (NORCO) 5-325 MG per tablet 1 tablet acetaminophen 325 mg / oxyCODONE hydrochloride 5 mg oral tablet (1 source)Opioid AgonistStart: 33-75-2643lgiYXLHHX-acetaminophen (PERCOCET) 5- 325 MG per tablet 1 [id number] 200 actuat albuterol 0.09 mg/actuat metered dose inhaler (14 sources)beta2-Adrenergic AgonistStart: 30-74-1066dsuq 2 puff(s) by inhalation every six hours for wheezingPro-Air HFA CFC free 90 mcg/inh MDI 2 puff(s), Inhalation, q6hr for wheezing, 8.5 gram, Refill(s) 1, [facility] #[facility], 152, cm, 02/17/21 15:40:00 EDT, Height/Length Dosing, 43.8, kg, 02/17/21 15:40:00 EDT, Weight Dosing Start Date: 02/17/21 Status: Orderedaluminum hydroxide 40 mg/ml / magnesium hydroxide 40 mg/ml / simethicone 4 mg/ml oral suspension (7 sources)Start: 89-41-3648bymf 30 mL by mouth every six hours as needed aluminum & magnesium hydroxide-simethicone (MAALOX) 200-200-20 MG/5ML SUSP suspension Take 30 mLs by mouth every 6 hours as needed for Indigestion 1 Bottle 0 01/14/2021 ActiveStart: 33-86-3598htppbpel & magnesium hydroxide-simethicone (MAALOX) 200-200-20 MG/5ML suspension 30 mLamoxicillin 500 mg oral capsule (3 sources)Penicillin-class AntibacterialStart: 12-37-5416imxb 1 capsule by mouth every eight hoursAmoxicillin 500 MG 1 capsule Orally three times a day for 10 day(s) October, ActiveStart: 37-49-8247gzgd 1 tablet by mouth every twelve hoursAmoxicillin 875 MG 1 tablet Orally every 12 hrs for 7 days May, Activeamoxicillin 875 mg / clavulanate 125 mg oral tablet (1 source)Penicillin-class AntibacterialStart: 22-52-7334eljq 1 tablet by mouth every twelve hoursAmoxicillin-Pot Clavulanate 875-125 MG 1 tablet Orally every 12 hrs for 10 day(s) Feb, ActiveAnoro Ellipta 62.5 mcg-25 mcg inhalation powder (16 sources)Start: 78-74-3660Ixzfv Ellipta 62.5 mcg-25 mcg inhalation powder 1 inh, Inhalation, Daily, 1 EA, Refill(s) 12, [facility]72, 154, cm, 01/25/23 13:10:00 EDT, Height/Length Dosing, 39.9, kg, 01/25/23 13:10:00 EDT, Weight Dosing Start Date: 02/21/23 Status: OrderedStart: 76-36-0837Yrjik Ellipta 62.5 mcg-25 mcg inhalation powder 1 inh, Inhalation, Daily, 1 EA, Refill(s) 12, [employer] #72, 154.9, cm, 01/21/22 13:26:00 EDT, Height/Length Dosing, 42.5, kg, 01/21/22 13:26:00 EDT, Weight Dosing Start Date: 04/13/22 Status: OrderedStart: 89-65-2830Mhegb Ellipta 62.5 mcg-25 mcg inhalation powder 1 inh, Inhalation, Daily, 1 EA, Refill(s) 12, otherreason (Rx) Start Date: 01/21/22 Status: OrderedStart: 05-08-2021 End: 40-92-6034Xakux Ellipta 62.5 mcg-25 mcg inhalation powder 1 inh, Inhalation, Daily for 30 day(s), 30 blister(s), Refill(s) 5, [employer] #72, 154.9, cm, 05/04/21 12:55:00 EST, Height/Length Dosing,42.8, kg, 05/04/21 12:55:00 EST, Weight Dosing Start Date: 05/08/21 Stop Date: 11/04/21 Status: OrderedAnoro Ellipta 62.5-25 MCG/INH (3 sources)take 1 puff(s) by inhalation once dailyAnoro Ellipta 62.5-25 MCG/INH 1 puff Inhalation Once a day Activeaspirin 81 mg delayed release oral tablet (20 sources)Platelet Aggregation Inhibitor, Nonsteroidal Anti-inflammatory Drug Start: 55-72-5452egtb 1 tablet by mouth once dailyaspirin 81 mg Oral EC Tab 81 mg = 1 tab(s), Oral, Daily, # 90 tab(s), Refills(s) 3, other reason (Rx) Start Date: 01/21/22 Status: OrderedStart: 03-00-5474gnff 325 mg by mouth once daily Aspirin Active 325 MG PO Daily March 14, 2022 11:00pmatorvastatin 20 mg oral tablet (6 sources)HMG-CoA Reductase InhibitorStart: 52-54-5316qcpb 1 tablet by mouth once dailyatorvastatin (LIPITOR) 20 MG tablet Take 20 mg by mouth nightly 0 06/03/2020 Enlqln53 actuat budesonide 0.16 mg/actuat / formoterol fumarate 0.0045 mg/actuat metered dose inhaler (7 sources)Corticosteroid, beta2-Adrenergic AgonistStart: 67-68-7568lfig 2 puff(s) by inhalation twice dailybudesonide-formoterol (SYMBICORT) 160-4.5 MCG/ACT AERO Inhale 2 puffs into the lungs 2 times daily 1 Inhaler 3 01/14/2021 ActiveStart: 23-33-3350vrxzhwhdhz-formoterol (SYMBICORT) 160-4.5 MCG/ACT inhaler 2 puffchlorhexidine gluconate 1.2 mg/ml mouthwash (1 source)Start: 78-46-0302qxjt 10 mL by mouth twice dailyPeridex 0.12 % gargle 10 ml Mouth/Throat twice daily May, Activedocusate sodium 100 mg oral capsule (7 sources)Start: 02-82-0108lgms 1 capsule by mouth once dailydocusate sodium (COLACE, DULCOLAX) 100 MG CAPS Take 100 mg by mouth daily 30 capsule 0 01/14/2021 Activedocusate sodium 50 mg / sennosides, senior care 8.6 mg oral tablet (7 sources)Start: 17-30-2897qrgf 1 tablet by mouth twice dailysennosides- docusate sodium (SENOKOT-S) 8.6-50 MG tablet Take 1 tablet by mouth 2 times daily 60 tablet 0 01/14/2021 Active0.3 ml enoxaparin sodium 100 mg/ml prefilled syringe (7 sources)Low Molecular Weight HeparinStart: 97-96-5918msokvkamom (LOVENOX) 30 MG/0.3ML injection Inject 0.3 mLs into the skin daily 10 mL 0 01/14/2021 Active famotidine 40 mg oral tablet (20 sources)Histamine-2 Receptor AntagonistStart: 04-59-2221ssfx 1 tablet by mouth once daily at bedtimefamotidine 40 mg Tab 40 mg = 1 tab(s), Oral, Once a day (at bedtime), # 90 tab(s), Refills(s) 3, Pharmacy: [facility], 154, cm, 08/02/23 10:44:00 EST, Height/Length Dosing, 41.3, kg, 08/02/23 10:44:00 EST, Weight Dosing Start Date: 08/02/23 Status: OrderedStart: 07-23-2021 take 1 tablet by mouth once daily at bedtimefamotidine 40 mg Tab 40 mg = 1 tab(s), Oral, Once a day (at bedtime), # 90 tab(s), Refills(s) 1, Pharmacy: [facility] #72, 154, cm, 08/30/22 14:11:00 EDT, Height/Length Dosing, 42.7, kg, 08/30/22 14:11:00 EDT, Weight Dosing Start Date: 09/23/22 Status: Orderedfluticasone propionate 0.05 mg/actuat metered dose nasal spray (1 source)CorticosteroidStart: 59-41-8145waqe 2 spray(s) nasal route once daily Fluticasone Propionate 50 MCG/ACT 2 sprays Nasally Once a day for 14 day(s) Feb, Rvtmzj16 hr guaiFENesin 600 mg extended release oral tablet (7 sources)Start: 42-95-6370urlk 1 tablet by mouth twice dailyguaiFENesin (MUCINEX) 600 MG extended release tablet Take 1 tablet by mouth 2 times daily 60 tablet0 01/14/2021 Activelactobacillus rhamnosus gg [id number] unt oral capsule (7 sources)Start: 59-51-3676qrqk 1 capsule by mouth once daily at breakfast lactobacillus (CULTURELLE) capsule Take 1 capsule by mouth daily (with breakfast) 30 capsule 0 01/14/2021 ActiveStart: 74-39-8267ofmomgldarfim (CULTURELLE) capsule 1 capsulelevalbuterol 0.417 mg/ml inhalation solution (10 sources)beta2-Adrenergic AgonistStart: 32-75-5925bwqpdwgvzrpd (XOPENEX) 1.25 MG/3ML nebulizer solution Take 3 mLs by nebulization every 4 hours as needed for Wheezing 30 mL 0 01/14/2021 ActiveStart: 01-09-2021 End: 48-35-5983gztdcxtasqvz (XOPENEX) nebulizer solution 1.25 mgStart: 15-19-6339uqfstgrtcipk (XOPENEX) 1.25 MG/3ML nebulizer solutionlevoFLOXacin 250 mg oral tablet (2 sources)Quinolone AntimicrobialStart: 01-14-2021 End: 95-27-8259vzoq 1 tablet by mouth once dailylevoFLOXacin (LEVAQUIN) 250 MG tablet Take 1 tablet by mouth daily for 5 days 5 tablet 0 ActiveStart: 20-59-8714iqyoGZGItagn (LEVAQUIN) 250 MG/50ML infusion 250 mg loratadine 10 mg oral tablet (20 sources)Start: 49-10-3812cacn 1 tablet by mouth once dailyloratadine 10 mg Tab 10 mg = 1 tab(s), Oral, Daily, # 30 tab(s), Refills(s) 5, Pharmacy: [facility] #72, 154.9, cm, 03/12/21 10:12:00 EDT, Height/Length Dosing, 42, kg, 03/12/21 10:12:00 EDT, Weight Dosing Start Date: 03/12/21 Status: Ordered magnesium hydroxide 80 mg/ml oral suspension (1 source)Start: 55-01-0508tyyy 30 mL by mouth once daily as needed for dsaeixuifnsa20 mL, Oral, DAILY PRN, Constipation, Starting on Tue01/09/21 at 1943 First line therapy for constipation. Post-opmeclizine hydrochloride 12.5 mg oral tablet (17 sources)AntiemeticStart: 36-03-5005jxbmupaub 12.5 mg Tab 12.5 mg = 1 tab(s), Oral, TID, PRN for dizziness, Use upto three times daily for dizziness as needed, # 30 tab(s), Refills(s) 2, Pharmacy: [facility] #72, 154.9, cm,07/29/22 13:20:00 EST, Height/Length Dosing, 42.6, kg, 07/29/22 13:20:00 EST, Weight Dosing Start Date: 07/29/22 Status: OrderedStart: 82-83-9233fcix 12.5 mg by mouth three times dailyMeclizine Active 12.5 MG PO Three times daily March 14, 2022 11:00pmStart: 98-71-0697wxjloouhb 12.5 mg Tab 12.5 mg = 1 tab(s), Oral, TID, PRN for dizziness, Use upto three times daily for dizziness as needed, # 30 tab(s), Refills(s) 2, Pharmacy: [facility] #72, 154.9, cm,10/27/21 12:15:00 EDT, Height/Length Dosing, 41.5, kg, 10/27/21 12:15:00... Start Date: 10/27/21 Status: Ordered2 ml metoclopramide 5 mg/ml prefilled syringe (1 source)Dopamine-2 Receptor AntagonistStart: 35-34-6757ayogrqnatdsjwu (REGLAN) injection 5 mg1 ml morphine sulfate 2 mg/ml cartridge (3 sources)Opioid AgonistStart: 16-76-1395sbxq 2 mg by mouth every four hours [...] other unless sp ecifically ordered.Start: 01-08-2021 End: 02-82-0015sazozfet sulfate (PF) injection 4 mgStart: 01-08-2021 End: 42-57-3346xyhbekaz sulfate (PF) injection 4 mgMultivitamins and Minerals (16 sources)Start: 62-79-5314hjap 1 tablet by mouth once dailyMultivitamins and Minerals 1 tab, Oral, Daily, Refill(s) 0 Start Date: 02/23/21 Status: Ordered naproxen sodium 550 mg oral tablet (1 source)Nonsteroidal Anti-inflammatory DrugStart: 81-60-6879hhid 1 tablet by mouth every twelve hours at mealtime as neededNaproxen Sodium 550 MG 1 tablet with food or milk as needed Orally every 12 hrs for 7 days May, Active ondansetron 4 mg disintegrating oral tablet (7 sources)Serotonin-3 Receptor AntagonistStart: 55-72-1152duhb 1 tablet by mouth every eight hours as needed for nauseaondansetron (ZOFRAN-ODT) 4 MG disintegrating tablet Take 1 tablet by mouth every 8 hours as needed for Nausea or Vomiting 30 tablet 0 01/14/2021 ActiveStart: 01-08-2021 End: 89-23-7925fayibrhcutf (ZOFRAN) injection 4 mgondansetron (ZOFRAN-ODT) disintegrating tablet 4 mg (1 source)Start: 66-28-6781zqzckccndpb (ZOFRAN-ODT) disintegrating tablet 4 mg pantoprazole 40 mg delayed release oral tablet (8 sources)Proton Pump InhibitorStart: 93-48-0320buzc 1 tablet by mouth once daily before breakfastpantoprazole (PROTONIX) 40 MG tablet Take 1 tablet by mouth every morning (before breakfast) 30 tablet 3 01/15/2021 ActiveStart: 23-23-1291mqfk 1 tablet by mouth once daily before breakfastpantoprazole (PROTONIX) 40 MG tablet Take 1 tablet by mouth every morning (before breakfast) 30 tablet 3 01/15/2021 ActiveStart: 18-55-0659ccfhlvddkvzh (PROTONIX) tablet 40 mgpatiromer 8400 mg powder for oral suspension (5 sources)Potassium BinderStart: 29-85-8022Tsbevlus 8.4 g oral powder for reconstitution Oral, 0 Refill(s), Refills(s) 0 Start Date: 04/06/23 Status: Orderedtake 1 dose by mouth once dailyVeltassa 8.4 GM 1 packet dissolved in water. Take other medications at least 3 hours before or 3 hours after this medication Orally Once a day Activepolyethylene glycol 3350 29053 mg powder for oral solution (4 sources)Osmotic LaxativeStart: 01-08-2021 End: 47-72-5432zyqc 17 g by mouth once daily as needed for constipation polyethylene glycol (GLYCOLAX) 17 g packet Take 17 g by mouth daily as needed for Constipation 527 g 1 01/14/2021 02/13/2021 ActivePro-Air HFA CFC free 90 mcg/inh MDI (2 sources)Start: 88-04-8321toty 2 puff(s) by inhalation every six hours for wheezingPro-Air HFA CFC free 90 mcg/inh MDI 2 puff(s), Inhalation, q6hr for wheezing, 8.5 gram, Refill(s) 1, [facility] #16, 152, cm, 02/17/21 15:40:00 EDT, Height/Length Dosing, 43.8, kg, 02/17/21 15:40:00 EDT, Weight Dosing Start Date: 02/17/21 Status: Orderedpromethazine hydrochloride 25 mg oral tablet (2 sources)PhenothiazineStart: 51-67-5102cbphvsdiesma (PHENERGAN) tablet 25 mg Start: 01-08-2021 End: 35-14-9272fsahpvdgkoll (PHENERGAN) injection 12.5 mgsodium chloride 1000 mg oral tablet (20 sources)Start: 25-76-8254grlm 1000 mg by mouth twice dailySodium Chloride Active 1000 MG PO Twice daily March 14, 2022 11:00pmStart: 15-23-8165mdqo 1 tablet by mouth once dailySodium Chloride 1 g oral tablet 1 tab, Oral, Daily, Refills(s) 0 Start Date: 02/23/21 Status: OrderedStart: 38-10-9377msba 1 tablet by mouth once dailySodium Chloride 1 g oral tablet 1 tab, Oral, Daily, Refills(s) 0 Start Date: 02/23/21 Status: OrderedStart: 94-05-3881hzhdvo chloride (OCEAN, BABY AYR) 0.65 % nasal spray 2 sprays by Nasal route 4 times daily 1 Bottle0 01/14/2021 ActiveStart: 01-08-2021 End: .9 % sodium chloride infusionStart: 71-71-4499ffkf 1 dose intravenously twice daily5-40 mL, Intravenous, [...] 1943 After every IV line use Post-opStart: 45-47-1417cyqf 25 mL intravenously every hour as stodhm75 mL, Intravenous, at 100 mL/hr, PRN, If patient receiving piggyback infusions without ordered maintenance IV fluids or with frequent/long duration piggyback infusions, Starting on Tue01/09/21 at 1943 Administer at the same rate as the piggyback being infused. Post-opsodium zirconium cyclosilicate 38909 mg powder for oral suspension (3 sources)Start: 90-00-7062Xsnzodx 10 g oral powder for reconstitution See [...] ActiveVentolin HFA 90 mcg/inh Aerosol (6 sources)Start: 29-64-3934nual 1 puff(s) by inhalation every four hours for wheezingVentolin HFA 90 mcg/inh Aerosol 1 puff(s), Inhalation, q4hr for wheezing, 18 gram, Refill(s) 5, [facility] #72, 154.9, cm, 05/04/21 12:55:00 EST, Height/Length Dosing, 42.8, kg, 05/04/21 12:55:00 EST, Weight Dosing Start Date: 05/08/21 Status: Ordered Completed/Discontinued Medications MedicationDrug Class(es)DatesSig (Normalized)Sig (Original)ceFAZolin 1000 mg injection (2 sources)Cephalosporin AntibacterialStart: 01-09-2021 End: 72-88-0419bnULJmsqy (ANCEF) injection 2,000 mgStart: 01-09-2021 End: 46-48-6007mvRKVcong (ANCEF) 2-3 GM-%(50ML) IVPB (duplex)ceFAZolin (ANCEF) 1,000 mg in dextrose 5 % 50 mL IVPB (mini-bag) (1 source)Start: 01-10-2021 End: 60-90-5318qoCFCrhnb (ANCEF) 1,000 mg in dextrose 5 % [...] mg oral tablet (1 source)Start: 01-13-2021 End: 24-86-3266lskxacj sulfate (IRON 325) tablet 325 mg Problems Active Problems Problem ClassificationProblemDateDocumented DateEpisodic/ChronicAnal and rectal conditions (1 source)Rectal polyp; Translations: [Rectal polyp]Onset: 10-76-8597Bvujdxdk Bacterial infection; unspecified site (1 source)Other specified bacterial agents as the cause of diseases classified elsewhereEpisodicChronic kidney disease (20 sources)Chronic kidney disease stage 3B ; Translations: [Chronic kidney disease, stage 3b]Onset: 72-44-4985NtotmnzIhewugn on above:Added per outpatient CDI policyChronic kidney disease (1 source)Chronic kidney disease; Translations: [CHRONIC KIDNEY DISEASE STAGE 3B]Onset: 85-84-7419Iunobjs obstructive pulmonary disease and bronchiectasis (20 sources)Asthma-chronic obstructive pulmonary disease overlap syndrome; Translations: [Chronic obstructive lung disease]Onset: 631383-38-5436 ChronicConditions associated with dizziness or vertigo (18 sources)Benign paroxysmal positional vertigo; Translations: [Benign paroxysmal vertigo, unspecified ear]Onset: 88-28-3980BahflwwsLicoxjfmkx and other anemia (20 sources)Anemia of chronic rsrorrs81-54-1258SihnqhqNwtymqepga and other anemia (3 sources)Anemia; Translations: [Anemia in other chronic diseases classified elsewhere]Onset: 86-76-4397LofjtyxPysyevmyvp and other anemia (1 source)Anemia; Translations: [Anemia, unspecified]EpisodicDisorders of lipid metabolism (7 sources)Mixed hyperlipidemia; Translations: [Mixed hyperlipidemia]Onset: 335203-03-6201VyngmeiSlmawhmsv of teeth and jaw (1 source)Periapical abscess without sinusEpisodicE Codes: Fall (1 source)Accidental fall ; Translations: [Unspecified fall, initial encounter] EpisodicEssential hypertension (14 sources)Benign essential hypertension; Translations: [Essential hypertension]Onset: 281824-68-1623UzdjffaZtmuh and electrolyte disorders (20 sources)Hyponatremia; Translations: [Hypo-osmolality and or hyponatremia] Onset: 867141-46-8666MmmvzjfsLiokfgfy of neck of femur (hip) (15 sources)Closed fracture of hip; Translations: [Fracture of unspecified part of neck of right femur, initialencounter for closed fracture]Onset: 01-08-2021 EpisodicHypertension with complications and secondary hypertension (4 sources)Hypertensive chronic kidney disease with stage 1 through stage 4 chronic kidney disease, or unspecified chronic kidney disease; Translations: [HTN CKD W/STAGE 1-4 CKD/UNS CKD]Onset: 10-46-8913RpfsxxjUkrkle and vomiting (7 sources)Nausea and vomiting; Translations: [Nausea with vomiting, unspecified]Onset: 60-71-2306YsvhvcxhVefuc and unspecified benign neoplasm (8 sources)Polyp of colon; Translations: [Polyp of colon]Onset: 09-18-2021 EpisodicOther and unspecified benign neoplasm (16 sources)Hyperplastic polyp of large tynqcdsnr89-15-7310SypfxjawSxysj and unspecified benign neoplasm (16 sources)Polyp of ascending -33-2069EiadqxqyCvryn and unspecified benign neoplasm (5 sources)History of polyp of colon; Translations: [Personal history of colonic polyps]EpisodicOther and unspecified benign neoplasm (1 source)Benign neoplasm of colon, unspecified; Translations: [Benign neoplasm of colon, unspecified]Onset: 94-74-3088LqwtgudoXjkif diseases of kidney and ureters (1 source)Renal impairment; Translations: [Disorder of kidney and ureter, unspecified]EpisodicOther gastrointestinal disorders (20 sources)Heartburn; Translations: [Heartburn]Onset: EpisodicOther gastrointestinal disorders (16 sources)Hyperplastic polyp of yabdlxthm78-46-3381YxttkkjuOpyfy nutritional; endocrine; and metabolic disorders (18 sources)Body mass index less than 20; Translations: [Body mass index (BMI) 19.9 or less, adult]Onset: 402208-72-7969OvfgzdfnFktsb screening for suspected conditions (not mental disorders or infectious disease) (3 sources)Stool DNA-based colorectal cancer screening positive; Translations: [Procedure carried out on subject]Onset: 434034-27-0470IhxvjscqAvkqj upper respiratory disease (9 sources)Allergic rhinitis due to pollen; Translations: [Allergic rhinitis due to pollen]Onset: 731340-16-3287TaaneiyVccpi upper respiratory infections (4 sources)Acute pharyngitis, unspecified; Translations: [Acute pharyngitis due to other specified organisms]EpisodicResidual codes; unclassified (2 sources)Refused procedure - parent's wish; Translations: [Procedure and treatment not carried out because of patient's decision for unspecified reasons] Onset: 60-63-1090IbucgdxrYntegkagx-related disorders (20 sources)Nicotine dependence; Translations: [Nicotine dependence, cigarettes, uncomplicated]Onset: 097743-54-2325QtrfinyRhdyxfqaztdy (1 source)Encounter for preprocedural laboratory examination; Translations: [Encounter for preprocedural laboratory examination]Onset: 03-11-2022 Unclassified (10 sources)Mammogram brqnemqe67-48-1614 Past or Other Problems Problem ClassificationProblemDateDocumented DateEpisodic/ChronicOther and unspecified benign neoplasm (1 source)Polyp of colonOnset: 12-21-2021 Resolved: 77-19-1343WoukjejcEcsssskbskwe (17 sources)Patient encounter ndfjem39-08-3794 Results Test NameValueInterpretationReference RangeFacilityAmbulatory Visit Summaryon 25-31-7583Sizjjdlvex Visit SummaryAmbulatory Visit Summary LENCHO CANDELARIO :1950 [...] Follow-Up Appointments 2025 1:00 PM EDT Where: [facility] [address] [id number]- Medications What How Much When Instructions Changed [...] that you are quitti (more content not included)...[facility] HospitalAmbulatory Visit SummaryAmbulatory Visit Summary LENCHO CANDELARIO [...] Follow-Up Appointments 2025 1:00 PM EDT Where: [place] [id number]- Medications What How Much When Instructions Changed [...] you for choosing us for your care. [facility] Medicine Office/Clinic Noteon 22-22-3513[facility] Office/Clinic NoteBay[facility]inic Note Chief Complaint Medicare Wellness [...] of clutter to prevent tripping and/or falling. [place] Advance Directives reviewed. Documents declined. Patient denies [...] kidney disease, stage 3b) Follows up with [employer], Dr. Rooney. Office notes available in chart [...] of chronic disease At (more content not included)...[facility] HospitalComment on above:Result Comment: Electronically Signed By: [...] have his notes or laboratories drawn through [facility] at my disposal. Apparently he made no [...] on Lokelma under the care of the director regulatory agency. 8. Screening mammography declined (Z53.20: Procedure and [...] LANCE Tadeo Within 1 year [address] [place] [address]- Additional Instructions: Patient Education Chronic Obstructive Pulmonary Disease Problem List/Past Medical History Ongoing Allergic rhinitis due to pollen Anemia associated with stage 4 chronic renal failure Anemia of chronic disease At risk for falls Benign positional vertigo BMI less than 19,adult Chronic kidney disease, stage 3b Cigarette nicotine dependence CO (more content not included)...[facility] HospitalComment on above:Result Comment: Electronically Signed By: Jaclyn SON MD\.br\Date and Time Signed: 09/11/24 14:06 EDTReminderson 46-81-6601GiuvbkegwWfypkgwzo From: Carolina Melchor To: W - Administrative; Sent: 09/11/2024 14:09:09 EDT Show up: 06/11/2025 06:00:00 EST Subject: Ambulatory Reminder Reminder/Recall [place] of 2025 not out for provider at time of appointment. Please call daughter toschedule appointment with PCP on September 11 after medicare appointment.[facility] HospitalCHEMISTRYOrdered By: SYSTEM SYSTEM on 92-94-2691Sfdmqmd [Mass/Vol]3.7 g/dLNormal3.3 - 5.0 gm/dL Remisol ChemAlbumin/Globulin [Mass ratio]1.2 {ratio}Normal1.1 - 2.2Remisol Chem Alk Phos74 [iU]/yQvejvo31 - 98 Int._Unit/LRemisol ChemALT9 [iU]/dNormal6 - 46 Int._Unit/LRemisol ChemAnion gap [Moles/Vol]9 mmol/LNormal6 - 16 mEq/LRemisol XbxhUHK03 [iU]/dNormal5 - 43 Int._Unit/LRemisol ChemBili Total0.2 mg/dLNormal0.0 - 1.1 mg/dLRemisol ChemCalcium [Mass/Vol]9.4 mg/dLNormal8.9 - 11.1 mg/dLRemisol ChemChloride [Moles/Vol]108 mmol/DFfddzj567 - 111 mmol/LRemisol ChemCO2 [Moles/Vol]28 mmol/YXhzsxk76 - 31 mmol/LRemisol ChemCreatinine [Mass/Vol]1.9 mg/dLHigh0.5 - 1.3 mg/dLRemisol HpzpzAKC35 mL/min/1.73 m2Low>=59mL/min/1.73 m2 Remisol ChemGlobulin (S) [Mass/Vol]3.0 g/dLNormal1.4 - 4.0 gm/dLRemisol Chem Glucose [Mass/Vol]96 mg/rGWueutz26 - 199 mg/dLRemisol ChemPotassium [Moles/Vol] 5.1 mmol/LNormal3.5 - 5.3 mmol/LRemisol ChemProtein [Mass/Vol]6.7 g/dLNormal6.0 - 7.8 gm/dLRemisol ChemSodium [Moles/Vol]140 mmol/GRvmbtx565 - 145 mmol/LRemisol ChemUrea nitrogen [Mass/Vol]27 mg/dLHigh5 - 21 mg/dLRemisol ChemUrea nitrogen/Creatinine [Mass ratio]14 mg/fjXivnwv01 - 20Remisol ChemHEMATOLOGY Ordered By: SYSTEM SYSTEM on 72-55-7689Skcxdcru Absolute0.0 E9/LNormal0.0 - 0.2 E9/LRemisol HemeBasophils/100 WBC (Bld)0.4 %Normal0.0 - 2.0 %Remisol HemeEos Absolute0.1 E9/LNormal0.0 - 0.5 E9/LRemisol HemeEosinophils/100 WBC (Bld)1.1 % Normal0.0 - 8.0 %Remisol HemeErythrocyte distribution width (RBC) [Ratio]14.9 % High10.9 - 14.2 %Remisol HemeHematocrit (Bld) [Volume fraction]33.0 %Low34.0 - 46.0 %Remisol HemeHemoglobin (Bld) [Mass/Vol]10.3 g/dLLow12.0 - 16.0 gm/dL Remisol HemeLymph Absolute2.0 E9/LNormal1.0 - 4.0 E9/LRemisol Heme Lymphocytes/100 WBC (Bld)32.3 %Luqnho69.0 - 50.0 %Remisol HemeMCH (RBC) [Entitic mass]26.2 pgLow27.0 - 34.0 pgRemisol HemeMCHC (RBC) [Mass/Vol]31.2 g/dLLow31.4 - 36.0 gm/dLRemisol HemeMCV (RBC) [Entitic vol]83.9 lNGzibyc04.0 - 100.0 fL Remisol HemeMono Absolute0.5 E9/LNormal0.2 - 1.0 E9/LRemisol HemeMonocytes/100 WBC (Bld)8.3 %Normal4.0 - 14.0 %Remisol HemeNeutro Absolute3.6 E9/LNormal2.0 - 7.5 E9/LRemisol HemeNeutro Auto57.9 %Nbkbfj59.0 - 75.0 %Remisol HemePlatelet 174.0 E9/LJggmed135.0 - 500.0 E9/LRemisol HemePlatelet mean volume (Bld) [Entitic vol]9.4 fLNormal6.4 - 10.8 fLRemisol HemeRBC3.9 E12/LLow4.3 - 5.9 E12/L Remisol HemeWBC6.2 E9/LNormal4.0 - 11.0 E9/LRemisol HemeQuick Strepon 02-25-2023 S. pyogenes Org specific cx Ql (Throat)[employer]KeyNe[employer] Other Quick [employer] Other Quick Strepon 10-22-2022S. pyogenes Org specific cx Ql (Throat)NegativeHanzo [employer] Other Quwfj StrepKeyNeurotek [employer] Other MAGNESIUMon 81-93-8731Dlmmimslq [Mass/Vol]1.6 mg/dL Critically low1.8-2.4The [facility] CenterComment on above:Performed By: #### MG, RENAL #### [facility] [address] [address] [address] Agustín OdellRENAL FUNCTION PANELon 44-15-5055Jrqhctz [Mass/Vol]3.4 g/dLNormal 3.4-5.0The [facility] CenterComment on above:Performed By: #### MG, RENAL #### [facility] [address] [address] [address] Agustín OdellCalcium [Mass/Vol]9.2 mg/dLNormal8.5-10.1The [facility] Comment on above:Performed By: #### MG, RENAL #### [facility] [address] [address] [address] Agustín OdellChloride [Moles/Vol]108 mmol/LCritically qedm50-363Vyi [facility] CenterComment on above:Performed By: #### MG, RENAL #### [facility] [address] [address] [address] Agustín OdellCO2 [Moles/Vol]26.1 mmol/VPuplmm16.0-32.0The [facility] Comment on above:Performed By: #### MG, RENAL #### [facility] [address] [address] [address] Agustín OdellCreatinine [Mass/Vol]1.70 mg/dLCritically high0.55-1.02The [facility] CenterComment on above:Performed By: #### MG, RENAL #### [facility] [address] [address] [address] Randolph ChangEGFR-AF OMQHOMVX06 mL/min/1.22r3Laopqcimam low>=60The [facility] CenterComment on above:Performed By: #### MG, RENAL #### [facility] [address] [address] [address] Randolph ChangEGFR-NON AF GREGBYXR64 mL/min/1.42r5Lwkjvozpid low>=60The [facility] CenterComment on above:Performed By: #### MG, RENAL #### [facility] [address] [place] [address] Dr. Agustín OdellGlucose [Mass/Vol]190 mg/dLCritically soxv18-453Cod [facility] CenterComment on above:Performed By: #### MG, RENAL #### [facility] [address] [place] [address] Dr. Agustín OdellPhosphate [Mass/Vol]3.3 mg/dLNormal2.6-4.7The [facility] Comment on above:Performed By: #### MG, RENAL #### [facility] [address] [place] [address] Dr. Agustín OdellPotassium [Moles/Vol]4.4 mmol/LNormal3.5-5.1[facility] Comment on above:Performed By: #### MG, RENAL #### [facility] [address] [place] [address] Dr. Agustín OdellSodium [Moles/Vol]144 mmol/NDieqto207-498FgzMercy Health St[facility] Comment on above:Performed By: #### MG, RENAL #### [facility] [address] [place] [address] Dr. Agustín OdellUrea nitrogen [Mass/Vol]21.0 mg/dLCritically high7.0-18.0The [facility] CenterComment on above:Performed By: #### MG, RENAL #### [facility] [address] [place] [address] Dr. Agustín OdellCHEMISTRYOrdered By: SYSTEM SYSTEM on 89-47-1516Kbysc gap [Moles/Vol]11 mmol/LNormal6 - 16 mEq/LFTMC RemisolCalcium [Mass/Vol]9.3 mg/dL Normal8.9 - 11.1 mg/dLFTMC RemisolChloride [Moles/Vol]105 mmol/YQtgkuq318 - 111 mmol/LFTMC RemisolCO2 [Moles/Vol]26 mmol/AXetjkj73 - 31 mmol/LFTMC Remisol Creatinine [Mass/Vol]1.5 mg/dLHigh0.5 - 1.3 mg/dLFTMC RemisolGFR/1.73 sq M.predicted among blacks MDRD (S/P/Bld) [Vol rate/Area]41 mL/min/1.73 m2Low >=59mL/min/1.73 m2[facility] Chem SGFR/1.73 sq M.predicted among non-blacks MDRD (S/P/Bld) [Vol rate/Area]34 mL/min/1.73 m2Low>=59mL/min/1.73 m2[facility] Chem S Glucose [Mass/Vol]116 mg/gAEiycqo53 - 199 mg/dLMEDICAL CENTER [facility] RemisolPotassium [Moles/Vol] 6.0 mmol/LInvalid Interpretation Code3.5 - 5.3 mmol/LFTMC RemisolComment on above:Result Comment: Critical Result verified by repeat analysis\Critical Result S_K:6.0 Called to HAYLEE BAJWA AT [facility] by SAL COREA And Read Back For Confirmation at: 08/30/2022 18:27:25Sodium [Moles/Vol]136 mmol/LNormal 135 - 145 mmol/LFTMC RemisolUrea nitrogen [Mass/Vol]27 mg/dLHigh5 - 21 mg/dLFTMC RemisolUrea nitrogen/Creatinine [Mass ratio]18 mg/fuChksmj77 - 20[facility] Remisol CHEMISTRYOrdered By: SYSTEM SYSTEM on 63-60-1420Dkcic gap [Moles/Vol]12 mmol/L Normal6 - 16 mEq/LFTMC RemisolCalcium [Mass/Vol]9.0 mg/dLNormal8.9 - 11.1 mg/dL [facility] RemisolChloride [Moles/Vol]102 mmol/WZkgbtw228 - 111 mmol/LFTMC RemisolCO2 [Moles/Vol]26 mmol/YJosgzi25 - 31 mmol/LFTMC RemisolCreatinine [Mass/Vol]1.6 mg/dLHigh0.5 - 1.3 mg/dLFTMC RemisolGFR/1.73 sq M.predicted among blacks MDRD (S/P/Bld) [Vol rate/Area]38 mL/min/1.73 m2Low>=59mL/min/1.73 m2FT Chem S GFR/1.73 sq M.predicted among non-blacks MDRD (S/P/Bld) [Vol rate/Area]32 mL/min/1.73 m2Low>=59mL/min/1.73 m2FT Chem SGlucose [Mass/Vol]111 mg/dLNormal 55 - 199 mg/dLFTMC RemisolPotassium [Moles/Vol]5.1 mmol/LNormal3.5 - 5.3 mmol/L [facility] RemisolSodium [Moles/Vol]135 mmol/MQezero793 - 145 mmol/LFTMC Remisol Troponin I.cardiac [Mass/Vol]29.90 pg/pDCmep47.10 - 27.10 pg/mLFTMC RemisolUrea nitrogen [Mass/Vol]25 mg/dLHigh5 - 21 mg/dLFTMC RemisolUrea nitrogen/Creatinine [Mass ratio]16 mg/pnDceqsx72 - 20FT[facility] RemisolPotassium [Moles/Vol]6.0 mmol/L Invalid Interpretation Code3.5 - 5.3 mmol/LFTMC RemisolComment on above:Result Comment: Critical Result verified by repeat analysis\Critical Result S_K:6.0 Called to NABILA HOLLEY AT [facility] by DANGELO LEMA And Read Back For Confirmation at: 08/06/2022 15:53:58COAGULATIONOrdered By: Heidy Varner on 80-22-3696zNAN Coag (PPP) [Time]31.4 nUdlook46.1 - 36.5 second(s)[facility] Auto Coag INR Coag (PPP) [Relative time]1.0 {INR}Invalid Interpretation CodeFTMC Auto Coag PT Coag (PPP) [Time]11.4 sNormal9.4 - 12.5 second(s)[facility] Auto CoagHEMATOLOGY Ordered By: SYSTEM SYSTEM on 94-26-2767Mrdmjmsic/100 WBC (Bld)0.5 %Normal0.0 - 2.0 %[facility] HemeAutoSSBasophils/Leukocytes Auto (Bld) [Pure # fraction]0.0 E9/L Normal0.0 - 0.2 E9/LFTMC HemeAutoSSEosinophils/100 WBC (Bld)1.0 %Normal0.0 - 8.0 %[facility] HemeAutoSSEosinophils/Leukocytes Auto (Bld) [Pure # fraction]0.1 E9/L Normal0.0 - 0.5 E9/LFTMC HemeAutoSSLymphocytes/100 WBC (Bld)19.5 %Gebskj26.0 - 50.0 %[facility] HemeAutoSSLymphocytes/Leukocytes Auto (Bld) [Pure # fraction]1.4 E9/L Normal1.0 - 4.0 E9/LFTMC HemeAutoSSMonocytes/100 WBC (Bld)9.5 %Normal4.0 - 14.0 %[facility] HemeAutoSSMonocytes/Leukocytes Auto (Bld) [Pure # fraction]0.7 E9/LNormal 0.2 - 1.0 E9/LFTMC HemeAutoSSNeutrophils/100 WBC (Bld)69.5 %Bihkfr96.0 - 75.0 % [facility] HemeAutoSSNeutrophils/Leukocytes Auto (Bld) [Pure # fraction]5.0 E9/LNormal 2.0 - 7.5 E9/LFTMC HemeAutoSSHEMATOLOGYOrdered By: Michael Wang on 71-06-6673Xcmwvnsriev distribution width (RBC) [Ratio]16.0 %High10.9 - 14.2 % [facility] HemeAutoSSHematocrit (Bld) [Volume fraction]33.8 %Low34.0 - 46.0 %[facility] HemeAutoSSHemoglobin (Bld) [Mass/Vol]10.7 g/dLLow12.0 - 16.0 gm/dLFTMC HemeAutoSSMCH (RBC) [Entitic mass]25.4 pgLow27.0 - 34.0 pgFTMC HemeAutoSSMCHC (RBC) [Mass/Vol]31.5 g/gOFtaqjc96.4 - 36.0 gm/dLFTMC HemeAutoSSMCV (RBC) [Entitic vol]80.7 wDMtgodd84.0 - 100.0 fLFTMC HemeAutoSSPlatelet mean volume (Bld) [Entitic vol]9.2 fLNormal6.4 - 10.8 fLFTMC HemeAutoSSPlatelets (Bld) [#/Vol]162.0 E9/WItewes940.0 - 500.0 E9/LFTMC HemeAutoSSRBC (Bld) [#/Vol]4.2 E12/LLow4.3 - 5.9 E12/LFTMC HemeAutoSSWBC corrected for nucl RBC Auto (Bld) [#/Vol]7.2 E9/LNormal4.0 - 11.0 E9/LFTMC HemeAutoSSCHEMISTRYOrdered By: SYSTEM SYSTEM on 21-16-6997Jmfvrlp [Mass/Vol]3.7 g/dLNormal3.3 - 5.0 gm/dLFTMC Remisol Albumin/Globulin [Mass ratio]1.1 {ratio}Normal1.1 - 2.2FT[facility] RemisolALP [Catalytic activity/Vol]69 [iU]/qXwehzz73 - 98 Int._Unit/LFTMC RemisolALT No additional P-5'-P [Catalytic activity/Vol]9 [iU]/dNormal6 - 46 Int._Unit/LFTMC RemisolAnion gap [Moles/Vol]14 mmol/LNormal6 - 16 mEq/LFTMC RemisolAST [Catalytic activity/Vol]16 [iU]/dNormal5 - 43 Int._Unit/LFTMC RemisolBilirubin [Mass/Vol]0.3 mg/dLNormal0.0 - 1.1 mg/dLFTMC RemisolCalcium [Mass/Vol]9.4 mg/dL Normal8.9 - 11.1 mg/dLFTMC RemisolChloride [Moles/Vol]101 mmol/XOshnzd203 - 111 mmol/LFTMC RemisolCO2 [Moles/Vol]26 mmol/ZGvgtll05 - 31 mmol/LFTMC Remisol Creatinine [Mass/Vol]1.7 mg/dLHigh0.5 - 1.3 mg/dLFTMC RemisolGFR/1.73 sq M.predicted among blacks MDRD (S/P/Bld) [Vol rate/Area]36 mL/min/1.73 m2Low >=59mL/min/1.73 m2FT Chem SGFR/1.73 sq M.predicted among non-blacks MDRD (S/P/Bld) [Vol rate/Area]30 mL/min/1.73 m2Low>=59mL/min/1.73 m2FT[facility] Chem S Globulin (S) [Mass/Vol]3.4 g/dLNormal1.4 - 4.0 gm/dLFTMC RemisolGlucose [Mass/Vol]93 mg/pSMpzgqs34 - 199 mg/dLFTMC RemisolPotassium [Moles/Vol]5.8 mmol/LHigh3.5 - 5.3 mmol/LFTMC RemisolProtein [Mass/Vol]7.1 g/dLNormal6.0 - 7.8 gm/dLFTMC RemisolSodium [Moles/Vol]135 mmol/ISahwmo107 - 145 mmol/LFTMC Remisol Urea nitrogen [Mass/Vol]24 mg/dLHigh5 - 21 mg/dLFTMC RemisolUrea nitrogen/Creatinine [Mass ratio]14 mg/mfEupini29 - 20FT[facility] RemisolHEMATOLOGY Ordered By: SYSTEM SYSTEM on 27-46-0354Obogftspa/100 WBC (Bld)0.5 %Normal0.0 - 2.0 %[facility] HemeAutoSSBasophils/Leukocytes Auto (Bld) [Pure # fraction]0.0 E9/L Normal0.0 - 0.2 E9/LFTMC HemeAutoSSEosinophils/100 WBC (Bld)2.2 %Normal0.0 - 8.0 %[facility] HemeAutoSSEosinophils/Leukocytes Auto (Bld) [Pure # fraction]0.1 E9/L Normal0.0 - 0.5 E9/LFTMC HemeAutoSSLymphocytes/100 WBC (Bld)34.3 %Vczhsc94.0 - 50.0 %[facility] HemeAutoSSLymphocytes/Leukocytes Auto (Bld) [Pure # fraction]2.3 E9/L Normal1.0 - 4.0 E9/LFTMC HemeAutoSSMonocytes/100 WBC (Bld)8.5 %Normal4.0 - 14.0 %[facility] HemeAutoSSMonocytes/Leukocytes Auto (Bld) [Pure # fraction]0.6 E9/LNormal 0.2 - 1.0 E9/LFTMC HemeAutoSSNeutrophils/100 WBC (Bld)54.5 %Rvjoie54.0 - 75.0 % [facility] HemeAutoSSNeutrophils/Leukocytes Auto (Bld) [Pure # fraction]3.6 E9/LNormal 2.0 - 7.5 E9/LFTMC HemeAutoSSHEMATOLOGYOrdered By: Evi De Oliveira on 07-29-2022 Erythrocyte distribution width (RBC) [Ratio]15.6 %High10.9 - 14.2 %[facility] HemeAutoSSHematocrit (Bld) [Volume fraction]34.3 %Cbxvuf27.0 - 46.0 %[facility] HemeAutoSSHemoglobin (Bld) [Mass/Vol]11.0 g/dLLow12.0 - 16.0 gm/dLFTMC HemeAutoSSMCH (RBC) [Entitic mass]25.7 pgLow27.0 - 34.0 pgFTMC HemeAutoSSMCHC (RBC) [Mass/Vol]32.1 g/wSWrbxpa05.4 - 36.0 gm/dLFTMC HemeAutoSSMCV (RBC) [Entitic vol]80.0 lPAmsnuf61.0 - 100.0 fLFTMC HemeAutoSSPlatelet mean volume (Bld) [Entitic vol]10.0 fLNormal6.4 - 10.8 fLFTMC HemeAutoSSPlatelets (Bld) [#/Vol]173.0 E9/KAnglzi532.0 - 500.0 E9/LFTMC HemeAutoSSRBC (Bld) [#/Vol]4.3 E12/LNormal4.3 - 5.9 E12/LFTMC HemeAutoSSWBC corrected for nucl RBC Auto (Bld) [#/Vol]6.6 E9/LNormal4.0 - 11.0 E9/LFTMC HemeAutoSSLon 03-15-2022L Specimen: [id number] Received: 03/15/22 Status: HARLEY Sandoval Num: [id number] Spec Type: Surgical Subm Dr: Chance Beavers MD Tissues: A Colon - Polyp (CECAL POLYP) B Colon - Polyp (HEPATIC FLEXURE POLYP) Procedures: HE Stain/4, Gross/Micro L4/2 Age/ Patient Sex Location Account Attending Physician Lencho Candelario 71/F [id number] Chance Beavers MD SPEC NUM: [id number] RECD: 03/15/22 STATUS: HARLEY SANDOVAL NUM: [id number] EDMOND: 03/15/22- [facility] DR: Chance Beavers MD ENTERED: 03/15/22 [facility] DR: SPEC TYPE: Surgical DEPT: S ORDERED: [...] submitted in one cassette labeled B1. Specimen: [id number] Received: 03/15/22 Status: HARLEY Sandoval Num: [id number] Spec Type: Surgical Subm Dr: Chance Beavers MD Tissues: A Colon - Polyp (CECAL POLYP) B Colon - Polyp (HEPATIC FLEXURE POLYP) Procedures: HE Stain/4, Gross/Micro L4/2 Patient: Lencho Candelario [id number] (Continued) Specimen: [id number] Received: 03/15/22 (Continued) Signed (signature on file) Beka Rizvi MD 03/16/22 1535 Specimen: [id number] Received: 03/15/22 Status: HARLEY Ngozi Num: [id number] Spec Type: Surgical Subm Dr: Chance Beavers MD Tissues: A Colon - Polyp (CECAL POLYP) B Colon - Polyp (HEPATIC FLEXURE POLYP) Procedures: HE Stain/4, Gross/Micro L4/2 Patient: Lencho Candelario [id number] (Continued) Specimen: [id number] Received: 03/15/22 (Continued) Microscopic Description A. Two glass slides with H E stained material have been examined. The microscopic findings support the above pathologic diagnosis. B. Two glass slides with H E stained material have been examined. The microscopic findings support the above pathologic diagnosis. CPT Codes 71573?2 Specimen: [id number] Received: 03/15/22 Status: HARLEY Ngozi Num: [id number] Spec Type: Surgical Subm Dr: Chance Beavers MD Tissues: A Colon - Polyp (CECAL POLYP) B Colon - Polyp (HEPATIC FLEXURE POLYP) Procedures: HE Stain/4, Gross/Micro L4/2 Patient: Lencho Candelario [id number] (Continued) Signed (signature on file) Beka Rizvi MD 03/16/22 1535 [facility] HealthCOVID-19 Antigenon 11-09-7703EPNBW-19 AntigenHealthcare Worker?: N Reference Range: Negative Negative [...] developed and its performance characteristic determined by [employer] and validated at [facility]. This test has not been FDA [...] for SARS Antigen by ISIDRO PERFORMED BY: [address] [address] [place] [address] PATHOLOGIST METAL SPRAYER AAKASH GARCES M.D.Premier HealthComment on above: Performed By: #### COVID-19 GARLAND, SOFIANEG #### [place] [address] USACOVID-19 SOFIAOrdered By: Chance Beavers on 03-11-2022 SARS-CoV+SARS-CoV-2 (COVID-19) Ag IA.rapid Ql (Resp)NegativeNegativeMercy Health St. Anne HospitalComment on above:This is a duplicate [place] SARS Antigen (ISIDRO) result to be used for statistical tracking purpose only.No Panel InformationOrdered By: Chance Beavers on 89-37-9746XOTZ Antigen (LFIA)[facility] Hospitalofia Ag Negativeon 83-42-4181Yihrp Ag NegativeNegative NormalNegCleveland Clinic South Pointe HospitalComment on above:Result Comment: This is a duplicate [place] SARS Antigen (ISIDRO) result to be used for statistical tracking purpose only. PERFORMED BY: [place] [address] PATHOLOGIST METAL SPRAYER AAKASH GARCES M.D.Performed By: #### COVID-19 GARLAND, SOFIANEG #### [place] [address] USACHEMISTRYOrdered By: SYSTEM SYSTEM on 21-82-9222Yxlyotwzr [Moles/Vol]4.8 mmol/LNormal3.5 - 5.3 mmol/LFTMC RemisolCHEMISTRYOrdered By: SYSTEM SYSTEM on 01-10-1553Dkrgrms [Mass/Vol]3.7 g/dLNormal3.3 - 5.0 gm/dLFTMC RemisolAlbumin/Globulin [Mass ratio]1.2 {ratio}Normal1.1 - 2.2[facility] RemisolALP [Catalytic activity/Vol]77 [iU]/jSgvaut62 - 98 Int._Unit/LFTMC RemisolALT No additional P-5'-P [Catalytic activity/Vol]10 [iU]/dNormal6 - 46 Int._Unit/LFTMC RemisolAnion gap [Moles/Vol]9 mmol/LNormal6 - 16 mEq/LFTMC RemisolAST [Catalytic activity/Vol]17 [iU]/dNormal5 - 43 Int._Unit/LFTMC RemisolBilirubin [Mass/Vol] 0.3 mg/dLNormal0.0 - 1.1 mg/dLFTMC RemisolCalcium [Mass/Vol]9.3 mg/dLNormal8.9 - 11.1 mg/dLFTMC RemisolChloride [Moles/Vol]105 mmol/SNvzuyc463 - 111 mmol/LFTMC RemisolCO2 [Moles/Vol]28 mmol/IZqhsnp21 - 31 mmol/LFTMC RemisolCreatinine [Mass/Vol]1.6 mg/dLHigh0.5 - 1.3 mg/dLFTMC RemisolGFR/1.73 sq M.predicted among blacks MDRD (S/P/Bld) [Vol rate/Area]38 mL/min/1.73 m2Low>=59mL/min/1.73 m2FT[facility] Chem SGFR/1.73 sq M.predicted among non-blacks MDRD (S/P/Bld) [Vol rate/Area]32 mL/min/1.73 m2Low>=59mL/min/1.73 m2FT[facility] Chem SGlobulin (S) [Mass/Vol]3.1 g/dL Normal1.4 - 4.0 gm/dLFTMC RemisolGlucose [Mass/Vol]88 mg/oHLbmejy60 - 199 mg/dL FT RemisolPotassium [Moles/Vol]6.5 mmol/LInvalid Interpretation Code3.5 - 5.3 mmol/LFTMC RemisolProtein [Mass/Vol]6.8 g/dLNormal6.0 - 7.8 gm/dLFTMC Remisol Sodium [Moles/Vol]135 mmol/NPrirmp570 - 145 mmol/LFTMC RemisolUrea nitrogen [Mass/Vol]26 mg/dLHigh5 - 21 mg/dLFTMC RemisolUrea nitrogen/Creatinine [Mass ratio]16 mg/ieHwmeyi00 - 20FT[facility] RemisolHEMATOLOGYOrdered By: SYSTEM SYSTEM on 72-36-9108Cvlfwssao/100 WBC (Bld)0.4 %Normal0.0 - 2.0 %[facility] HemeAutoSS Basophils/Leukocytes Auto (Bld) [Pure # fraction]0.0 E9/LNormal0.0 - 0.2 E9/L [facility] HemeAutoSSEosinophils/100 WBC (Bld)2.3 %Normal0.0 - 8.0 %[facility] HemeAutoSS Eosinophils/Leukocytes Auto (Bld) [Pure # fraction]0.2 E9/LNormal0.0 - 0.5 E9/L [facility] HemeAutoSSLymphocytes/100 WBC (Bld)34.4 %Ziidsy61.0 - 50.0 %[facility] HemeAutoSS Lymphocytes/Leukocytes Auto (Bld) [Pure # fraction]2.3 E9/LNormal1.0 - 4.0 E9/L [facility] HemeAutoSSMonocytes/100 WBC (Bld)6.3 %Normal4.0 - 14.0 %[facility] HemeAutoSS Monocytes/Leukocytes Auto (Bld) [Pure # fraction]0.4 E9/LNormal0.2 - 1.0 E9/L [facility] HemeAutoSSNeutrophils/100 WBC (Bld)56.6 %Ssdwqu90.0 - 75.0 %[facility] HemeAutoSS Neutrophils/Leukocytes Auto (Bld) [Pure # fraction]3.8 E9/LNormal2.0 - 7.5 E9/L [facility] HemeAutoSSHEMATOLOGYOrdered By: Viky Roberts on 58-05-6601Bnnnhakkzwm distribution width (RBC) [Ratio]14.8 %High10.9 - 14.2 %[facility] HemeAutoSSHematocrit (Bld) [Volume fraction]34.9 %Qrdvax58.0 - 46.0 %[facility] HemeAutoSSHemoglobin (Bld) [Mass/Vol]11.2 g/dLLow12.0 - 16.0 gm/dLFTMC HemeAutoSSMCH (RBC) [Entitic mass] 26.0 pgLow27.0 - 34.0 pgFTMC HemeAutoSSMCHC (RBC) [Mass/Vol]32.0 g/pOIvyhlt25.4 - 36.0 gm/dLFTMC HemeAutoSSMCV (RBC) [Entitic vol]81.2 aBVwiewz85.0 - 100.0 fL [facility] HemeAutoSSPlatelet mean volume (Bld) [Entitic vol]10.1 fLNormal6.4 - 10.8 [facility] HemeAutoSSPlatelets (Bld) [#/Vol]173.0 E9/FFzctaw543.0 - 500.0 E9/LFONECORE HEALTH – [place] HemeAutoSSRBC (Bld) [#/Vol]4.3 E12/LNormal4.3 - 5.9 E12/LFC HemeAutoSSWBC corrected for nucl RBC Auto (Bld) [#/Vol]6.8 E9/LNormal4.0 - 11.0 E9/LFONECORE HEALTH – [place] HemeAutoSSCOVID-19 Antigenon 60-25-4947DJDAI-19 AntigenHealthcare Worker?: N Reference Range: Negative Negative [...] developed and its performance characteristic determined by [employer] and validated at [facility]. This test has not been FDA [...] for SARS Antigen by ISIDRO PERFORMED BY: [place] [address] PATHOLOGIST METAL SPRAYER AAKASH GARCES M.D.Premier HealthComment on above: Performed By: #### COVID-19 GARLAND, SOFIANEG #### [facility] [address] [place] [address] USACOVID-19 SOFIAOrdered By: Darryl Soto on 01-07-2022 SARS-CoV+SARS-CoV-2 (COVID-19) Ag IA.rapid Ql (Resp)NegativeNegativeMercy Health St. Anne HospitalComment on above:This is a duplicate [place] SARS Antigen (ISIDRO) result to be used for statistical tracking purpose only.No Panel InformationOrdered By: Darryl Soto on 61-45-5609FKFH Antigen (LFIA)[facility] Hospitalofia Ag Negativeon 17-83-9953Vydyp Ag NegativeNegative NormalNegCleveland Clinic South Pointe HospitalComment on above:Result Comment: This is a duplicate [place] SARS Antigen (ISIDRO) result to be used for statistical tracking purpose only. PERFORMED BY: [place] [address] PATHOLOGIST METAL SPRAYER AAKASH GARCES M.D.Performed By: #### COVID-19 GARLAND, SOFIANEG #### [facility] [address] [place] [id number] USARENAL FUNCTION PANELon 24-47-5588Jsdfdgm [Mass/Vol]3.3 g/dLCritically low3.4-5.0The [facility] CenterComment on above:Performed By: #### RENAL #### [facility] [address] [address] [address] Agustín OdellCalcium [Mass/Vol]9.1 mg/dLNormal8.5-10.1The [facility] Comment on above:Performed By: #### RENAL #### [facility] [address] [address] [address] Agustín OdellChloride [Moles/Vol]96 mmol/LCritically [id number] [facility] CenterComment on above:Performed By: #### RENAL #### [facility] [address] [address] [address] Agustín OdellCO2 [Moles/Vol]28.4 mmol/RMwodmp83.0-32.0[facility] Comment on above:Performed By: #### RENAL #### [facility] [address] [address] [address] Agustín OdellCreatinine [Mass/Vol]1.58 mg/dLCritically high0.55-1.02The [facility] CenterComment on above:Performed By: #### RENAL #### [facility] [address] [place] [address] Dr. Agustín TorresGFR-AF UXNWIUNA36 mL/min/1.23x4Rcvcaradbf low>=60The [facility] CenterComment on above:Performed By: #### RENAL #### [facility] [address] [place] [address] Dr. Agustín TorresGFR-NON AF [id number] mL/min/1.99c3Gussjjapgy low>=60The [facility] CenterComment on above:Performed By: #### RENAL #### [facility] [address] [place] [address] Dr. Agustín OdellGlucose [Mass/Vol]100 mg/yQLskhpd08-371[facility]xs[facility] Comment on above:Performed By: #### RENAL #### [facility] [address] [place] [address] Dr. Agustín OdellPhosphate [Mass/Vol]4.2 mg/dLNormal2.6-4.7The [facility] Comment on above:Performed By: #### RENAL #### [facility] [address] [address] [address] Agustín OdellPotassium [Moles/Vol]5.3 mmol/LCritically high3.5-5.1[facility] Clinicment on above:Performed By: #### RENAL #### [facility] [address] [place] [address] Dr. Agustín OdellSodium [Moles/Vol]131 mmol/LCritically [id number] [facility] CenterComment on above:Performed By: #### RENAL #### [facility] [address] [address] [address] Agustín Perkins nitrogen [Mass/Vol]19.0 mg/dLCritically high7.0-18.0[facility] HospitalComment on above:Performed By: #### RENAL #### [facility] [address] [address] [address] Agustín Pepe RANDOMon [id number] Ql (U)NegativeNormalNEGATIVEMercy Health St. [facility] HospitalComment on above:Performed By: #### UA #### [facility] [address] [place] [address] Dr. Agustín OdellClarity (U)CLEARNormalCLEARMercy Health St. Joseph Warren HospitalComment on above: Performed By: #### UA #### [facility] [address] [place] [address] Dr. Agustín Keenanlor (U)LT. YELLOWNormalYLakeHealth Beachwood Medical CenterComment on above:Performed By: #### UA #### [facility] [address] [place] [address] Dr. Agustín OdellGlucose Ql (U)NegativeNormalNEGATIVEMercy Health St. Joseph Warren HospitalComment on above:Performed By: #### UA #### [facility] [address] [place] [address] Dr. Agustín OdellHemoglobin Ql (U)MODERATEAbnormalNEGTrinity Health System on above:Performed By: #### UA #### [facility] [address] [place] [address] Dr. Agustín OdellKetones Ql (U)NegativeNormalNEGATIVEMercy Health St. Joseph Warren HospitalComment on above:Performed By: #### UA #### [facility] [address] [place] [address] Dr. Agustín OdellLEUKOCYTESLARGEAbnormalNEGATIVEMercy Health St. Joseph Warren HospitalComment on above:Performed By: #### UA #### [facility] [address] [place] [address] Dr. Agustín Yeager Ql (U)NegativeNormalNEGATIVEThe [facility] CenterComment on above:Performed By: #### UA #### [facility] [address] [place] [address] Dr. Agustín OdellpH (U)6.0 [pH]Normal5-9The [facility] CenterComment on above: Performed By: #### UA #### [facility] [address] [place] [address] Dr. Agustín OdellSPEC GRAVITY1.979Jwtpsf8.005-<=1.025The [facility] CenterComment on above:Performed By: #### UA #### [facility] [address] [place] [address] Dr. Agustín Pepe ATMWSEA82 mg/dlAbnormalNEGATIVE/ TRACEThe [facility] Comment on above:Performed By: #### UA #### [facility] [address] [place] [address] Dr. Agustín Lee Qn (U)0.2 {Pop'U}/dLNormal0.2 - 1.0The [facility] CenterComment on above:Performed By: #### UA #### [facility] [address] [place] [address] Dr. Agustín Mondragon T PROTEIN CREAT RATIOon 80-50-1461Ffufmwz (U) [Mass/Vol] 44.2 mg/dLCritically high<=12.0The [facility] CenterComment on above:Performed By: #### URTPCR #### [facility] [address] [place] [address] Dr. Agustín Rider PROT CREAT RAT0.87NormalThe [facility] CenterComment on above: Performed By: #### URTPCR #### [facility] [address] [place] [address] Dr. Agustín Mondragon CREAT50.86 mg/hGAovffr12.00-300.00[facility] Comment on above:Performed By: #### URTPCR #### [facility] [address] [address] [address] Agustín OdellXR HIP 2-3 VW W PELVIS RIGHTon 10-56-5567TV HIP 2-3 VW W PELVIS RIGHTHISTORY: Hip [...] Signed by: Anthony Lomas MD 04/05/21 Final resultNormNationwide Children's HospitalXR HIP 2-3 VW W PELVIS RIGHTOrdered By: Eugene Michelle on 45-11-5205Gbgggl postoperative changes with continued near complete healing of an intratrochanteric hip fracture.[employer] Phone: HISTORY: Hip fracture. TECHNIQUE: Two views of the right hip were obtained. COMPARISON: 03/06/2021. FINDINGS: There has been open reduction internal fixation of an intratrochanteric hip fracture with an intramedullary jerry and femoral neck screw. The position is satisfactory. There is continued healing of the fracture with the fracture plane still barely visible. There is no complication.[employer] Phone: e, [facility] Incoming Radiant Results From [facility] - 04/05/2021 2:56 PM EDT HISTORY: Hip [...] complete healing of an intratrochanteric hip fracture. [employer] Phone: [facility] Phone: XR HIP 2-3 VW W PELVIS RIGHTon [id number] HIP 2-3 VW W PELVIS RIGHTEXAM: XR [...] by: Adalid Alexander Jr., MD 03/06/21 Final resultNoUniversity Hospitals Elyria Medical CenterXR HIP 2-3 VW W PELVIS RIGHTon [id number] HIP 2-3 VW W PELVIS RIGHTEXAM: XR [...] by: Adalid Alexander Jr., MD 01/23/21 Final resultProtestant Deaconess HospitalXR HIP 2-3 VW W PELVIS RIGHTOrdered By: Eugene Michelle on [id number] alignment internally fixed right hip fracture.[employer] Work Phone: eXAM: XR HIP 2-3 VW [...] Avulsion lesser trochanter unchanged. Overlying skin jose luis.[employer] Phone: emichael, Samaria Incoming Radiant Results From [facility] - 01/23/2021 11:29 AM EDT EXAM: XR [...] Anatomic alignment internally fixed right hip fracture. [employer] Phone: [facility] Phone: cult,Bloodon [id number],BloodSpecimen Description .BLOOD Special Requests 10 Culture NO GROWTH 6 DAYS Report Status FINAL 01/17/2021NoUniversity Hospitals Elyria Medical CenterComment on above: Performed By: #### CDP, BMPX #### [facility] [address] [place] [address] Developmental Therapist: Darryl Granger [facility] STIGLERADITI-19, RapidOrdered By: Aurelio Saldana on 18-20-1149SARP-CoV-2 (COVID-19) RNA MARTIN+probe Ql (Unsp spec)Not detectedNot [facility]r [facility] Phone: comment on above: Rapid NAAT: The [...] management decisions. Fact sheet for Healthcare Providers: https://www.fda.gov/media/213108/download Fact sheet for Patients: https://www.fda.gov/media/604615/download Methodology: Isothermal Nucleic Acid Amplification Specimen Description.NASOPHARYNGEAL SWABShelby Memorial HospitalPenstar Technologies Phone: [facility] Phone: Hemoglobin and hematocrit, bloodOrdered By: Aurelio Saldana on 65-05-2212Vqvckscpqg (Bld) [Volume fraction]25.7 %Low36 - 46 %[facility] [employer] Phone: Hemoglobin.gastrointestinal spec 1 Ql (Stl)8.3 g/dLLow 12.0 - 16.0 g/dLShelby Memorial HospitalPenstar Technologies Phone: Interpretation and review of laboratory results AbnormalShelby Memorial HospitalPenstar Technologies Phone: [facility] Phone: Hgb/Hcton 15-87-9020Zfignmqvzz (Bld) [Volume fraction] 25.7 %Dan18-94XepjhUniversity Hospitals Geauga Medical CenterComment on above:Performed By: #### HH #### [facility] [address] [place] [address] Developmental Therapist: Darryl Granger MDHemoglobin (Bld) [Mass/Vol]8.3 g/dLLow12.0-16.0 [facility]als Geauga Medical CenterComment on above:Performed By: #### HH #### [facility] [address] [place] [address] Developmental Therapist: CRISTINA Park-CoV-2on 06-44-5811TDPK-CoV-2 (COVID-19) RNA MARTIN+probe Ql (Unsp spec)Not detectedNormalNOTDEKettering Health TroyComment on above:Result Comment: Rapid NAAT: The specimen [...] management decisions. Fact sheet for Healthcare Providers: https://www.fda.gov/media/253108/download Fact sheet for Patients: https://www.fda.gov/media/067437/download Methodology: Isothermal Nucleic Acid AmplificationPerformed By: #### CDP, BMPX #### [facility] [address] [place] [address] Developmental Therapist: Erna Park Metabolic PanelOrdered By: Aurelio Saldana on 96-36-5401Wpxyd gap [Moles/Vol]3 mmol/LLow9 - 17 mmol/LMercy [employer] Work Phone: calcium [Mass/Vol]8.3 mg/dLLow8.6 - 10.4 mg/dLMercy Health Lorain Hospital [employer] Work Phone: chloride [Moles/Vol]101 mmol/L98 - 107 mmol/LMercy [employer] Work Phone: cO2 [Moles/Vol]31 mmol/L20 - 31 mmol/LMInstacover Work Phone: creatinine [Mass/Vol]1.11 mg/dLHigh0.50 - 0.90 mg/dL [facility] [employer] Phone: GFR Aivmjrxc73 mL/minLow>60[facility] Hospitalcy [facility] Work Phone: GFR Non- Ikmaawit80 mL/minLow>60[facility] [employer] Phone: GFR/1.73 sq M.predicted MDRD (S/P/Bld) [Vol rate/Area] [facility] HospitalShopWiki Phone: comment on above:Average GFR for 70 or more years old: 75 mL/min/1.73sq m Chronic Kidney Disease: <60 mL/min/1.73sq m Kidney failure: <15 mL/min/1.73sq m eGFR calculated using average adult body mass. Additional eGFR calculator available at: http://www.Distra/multiple_crcl_2012.htm GFR/1.73 sq M.predicted MDRD (S/P/Bld) [Vol rate/Area]NOT REPORTEDMercy Health Lorain Hospital BuildingIQ Phone: Glucose [Mass/Vol]104 mg/zCZtst53 - 99 mg/dLMercy Health Lorain Hospital BuildingIQ Phone: Interpretation and review of laboratory results AbnormalMercy Health Lorain Hospital BuildingIQ Phone: potassium [Moles/Vol]4.8 mmol/L3.7 - 5.3 mmol/LMuk healthcarey BuildingIQ Phone: sodium [Moles/Vol]135 mmol/L135 - 144 mmol/LMuk healthcarey Building[employer] Phone: Urea nitrogen (BldV) [Mass/Vol]16 mg/dL8 - 23 mg/dL [facility] [employer] Phone: Urea nitrogen/Creatinine (Bld) [Mass ratio]14[facility] BuildingIQ Phone: [facility]Pen[facility] Phone: basic Metabolic Profon 01-13-2021(cont.)NormalUniversity Hospitals Geauga Medical CenterComment on above:Result Comment: Average GFR for 70 or more years old: 75 mL/min/1.73sq m Chronic Kidney Disease: <60 mL/min/1.73sq m Kidney failure: <15 mL/min/1.73sq m eGFR calculated using average adult body mass. Additional eGFR calculator available at: http://www.[employer].com/multiple_crcl_2012.htmPerformed By: #### CDP, BMP #### [facility] [address] [id number] Developmental Therapist: Darryl Granger MDAnion gap [Moles/Vol]3 mmol/LLow9-17University Hospitals Geauga Medical CenterComment on above:Performed By: #### CDP, BMP #### [facility] [address] [place] [address] Developmental Therapist: Darryl Granger MDBUN/CRE Zswhf90Vuzmup2-39[facility] Comment on above:Performed By: #### ESA, BMP #### [facility] [address] [id number] Developmental Therapist: FRANKIE Parkalcium [Mass/Vol]8.3 mg/dLLow8.6-10.4[facility] Hospitals Geauga Medical CenterComment on above:Performed By: #### CDP, BMP #### [facility] [address] [id number] Developmental Therapist: FRANKIE Parkhloride [Moles/Vol]101 mmol/YUtleuf20-100FyaarUniversity Hospitals Geauga Medical CenterComment on above:Performed By: #### CDP, BMP #### [facility] [address] [place] [address] Developmental Therapist: Darryl Granger MDCO2 [Moles/Vol]31 mmol/QRijxui41-26JjgkmUniversity Hospitals Geauga Medical CenterComment on above:Performed By: #### CDP, BMP #### [facility] [address] [id number] Developmental Therapist: FRANKIE Parkreatinine [Mass/Vol]1.11 mg/dLHigh0.50-0.90[facility] Geauga Medical CenterComment on above:Performed By: #### CDP, BMP #### [facility] [address] [place] [address] Developmental Therapist: Darryl Granger MDGFR, Amer59 mL/minLow>60[facility] HospitalComment on above:Performed By: #### CDP, BMP #### [facility] [address] [place] [address] Developmental Therapist: Darryl Granger MDGFR,non Amer48 mL/minLow>60[facility] HospitalComment on above:Performed By: #### CDP, BMP #### [facility] [address] [id number] Developmental Therapist: Darryl Granger MDGlucose [Mass/Vol]104 mg/vFRobm90-37IsoukWayne HealthCare Main CampusComment on above:Performed By: #### CDP, BMP #### [facility] [address] [phone] Developmental Therapist: ABDIEL Parkotassium [Moles/Vol]4.8 mmol/LNormal3.7-5.3MWayne HealthCare Main CampusComment on above:Performed By: #### CDP, BMP #### [facility] [address] [place] [address] Developmental Therapist: JANICE Parkodium [Moles/Vol]135 mmol/LFcwxwx280-131NfinnUniversity Hospitals Geauga Medical CenterComment on above:Performed By: #### CDP, BMP #### [facility] [address] [place] [address] Developmental Therapist: Darryl Granger MDUrea nitrogen [Mass/Vol]16 mg/dLNormal8-23[facility] Geauga Medical CenterComment on above:Performed By: #### CDP, BMP #### [facility] [address] [place] [address] Developmental Therapist: JANICE Parktaging:NOT REPORTEDNormalUniversity Hospitals Geauga Medical Center Comment on above:Performed By: #### CDP, BMP #### [facility] [address] [place] [address] Developmental Therapist: Darryl Granger [facility] STIGLERDINESH Auto DifferentialOrdered By: Aurelio Saldana on 29-21-7151Vgfnchvl Eos #0.10[facility] HospitalPen[facility] Technologies Phone: absolute Immature GranulocyteNOT REPORTEDShelby Memorial HospitalPenstar Technologies Phone: absolute Lymph #1.10[facility] HospitalPen[facility] Phone: absolute [place] #0.70[facility] HospitalPen[facility] Phone: basophils (Bld) [#/Vol]0.00 10*3/uLShelby Memorial HospitalPenstar Technologies Phone: basophils/100 WBC (Bld)0 %0 - 2 %[employer] Ink Phone: differential TypeYESMercShopWiki Phone: eosinophils/100 WBC (Bld)1 %0 - 5 %[employer] Phone: Hematocrit (Bld) [Volume fraction]25.3 %Low36 - 46 % [employer] Phone: Hemoglobin.gastrointestinal spec 1 Ql (Stl)8.3 g/dLLow 12.0 - 16.0 g/dLShelby Memorial HospitalPenstar Technologies Phone: Immature GranulocytesNOT REPORTED0 %[employer] Phone: Interpretation and review of laboratory results AbnormalShelby Memorial HospitalPenstar Technologies Phone: lymphocytes/100 WBC (Bld)13 %Low15 - 40 %[employer] Phone: MCH (RBC) [Entitic mass]27.4 pg26 - 34 pgShelby Memorial HospitalPenstar Technologies Phone: MCHC (RBC) [Mass/Vol]32.9 g/dL31 - 37 g/dLShelby Memorial HospitalPenstar Technologies Phone: MCV (RBC) [Entitic vol]83.5 fL80 - 100 fLE Ink Phone: [phone]/100 WBC (Bld)9 %High4 - 8 %[employer] Phone: NRBC AutomatedNOT REPORTEDper 100 WBCShelby Memorial HospitalPenstar Technologies Phone: platelet distribution width (Bld) [Ratio]18.7 %High 12.1 - 15.2 %[employer] In[employer] Phone: Tlatelet EstimateNOT REPORTEDShelby Memorial HospitalPenstar Technologies Phone: Platelet mean volume (Bld) [Entitic vol]NOT REPORTED 6.0 - 12.0 KYE Ink Phone: Platelets (Bld) [#/Vol]124 10*3/uLLowShelby Memorial HospitalPenstar Technologies Phone: RBC (Bld) [#/Vol]3.03 10*6/uLLow4.0 - 5.2 m/ExecShelby Memorial HospitalPenstar Technologies Phone: RBC (Bld) [#/Vol]NOT REPORTEDShelby Memorial HospitalPenstar Technologies Phone: Segmented neutrophils/100 WBC (Bld)77 %High47 - 75 % [employer] In[employer] Phone: Segs Absolute6.60[facility] HospitalPen[facility] Technologies Phone: WBC (Bld) [#/Vol]8.4 10*3/uLE Ink Phone: [phone] (Bld) [#/Vol]NOT REPORTEDShelby Memorial HospitalPenstar Technologies Phone: [facility]Pen[facility] Phone: CBC with Diffon 46-82-8694Awh. Basophil0.00 k/uLNormal 0.0-0.2Mer[facility] Alburgh HospitalComment on above:Performed By: #### CDP, BMP #### [facility] [address] [phone] Developmental Therapist: [place] Park.Neutrophil (Seg)6.60 k/uLNormal2.5-7.0[facility] Geauga Medical CenterComment on above:Performed By: #### CDP, BMP #### [facility] [address] [place] [address] Developmental Therapist: [place] Diff PerformedYESNoUniversity Hospitals Elyria Medical Center Comment on above:Performed By: #### CDP, BMP #### [facility] [address] [place] [address] Developmental Therapist: Darryl Granger MDBasophils/100 WBC (Bld)0 %Normal0-2MWayne HealthCare Main CampusComment on above:Performed By: #### CDP, BMP #### [facility] [address] [place] [address] Developmental Therapist: Darryl Granger MDEosinophils (Bld) [#/Vol]0.10 10*3/uLNormal0.0-0.4 [facility] Medical CenterComment on above:Performed By: #### CDP, BMP #### [facility] [address] [place] [address] Developmental Therapist: LISE Parkosinophils/100 WBC (Bld)1 %Normal0-5[facility] Medical CenterComment on above:Performed By: #### CDP, BMP #### [facility] [address] [place] [address] Developmental Therapist: Darryl Granger MDErythrocyte distribution width (RBC) [Ratio]18.7 % High12.1-15.2MWayne HealthCare Main CampusComment on above:Performed By: #### CDP, BMP #### [facility] [address] [place] [address] Developmental Therapist: Darryl Granger MDHematocrit (Bld) [Volume fraction]25.3 %Xqq18-45 [facility]tering Memorial Hospitalment on above:Performed By: #### CDP, BMP #### [facility] [address] [place] [address] Developmental Therapist: Darryl Granger MDHemoglobin (Bld) [Mass/Vol]8.3 g/dLLow12.0-16.0 [facility] on above:Performed By: #### CDP, BMP #### [facility] [address] [place] [address] Developmental Therapist: Darryl Granger MDLymphocytes (Bld) [#/Vol]1.10 10*3/uLNormal1.0-4.8 [facility] on above:Performed By: #### CDP, BMP #### [facility] [address] [place] [address] Developmental Therapist: Constanza Parkmphocytes/100 WBC (Bld)13 %Rdx61-92KxornGenesis Hospital on above:Performed By: #### CDP, BMP #### [facility] [address] [phone] Developmental Therapist: KALYAN ParkCH (RBC) [Entitic mass]27.4 uyHkdgpr44-48AtsexUniversity Hospitals Geauga Medical CenterComment on above:Performed By: #### CDP, BMP #### [facility] [address] [place] [address] Developmental Therapist: ALANA ParkC (RBC) [Mass/Vol]32.9 g/xKQlipjb47-90WsclmUniversity Hospitals Geauga Medical CenterComment on above:Performed By: #### CDP, BMP #### [facility] [address] [phone] Developmental Therapist: KALYAN ParkCV (RBC) [Entitic vol]83.5 eXHrlqzp47-660JjdtkUniversity Hospitals Geauga Medical CenterComment on above:Performed By: #### CDP, BMP #### [facility] [address] [place] [address] Developmental Therapist: KALYAN Parkonocytes (Bld) [#/Vol]0.70 10*3/uLNormal0.0-1.0 [facility] Medical CenterComkalkaska memorial health center on above:Performed By: #### CDP, BMP #### [facility] [address] [place] [address] Developmental Therapist: KALYAN Parkonocytes/100 WBC (Bld)9 %High4-8[facility] HospitalComment on above:Performed By: #### CDP, BMP #### [facility] [address] [place] [address] Developmental Therapist: Alexandria Parkophil (Seg)77 %Clvw43-23ZyrheUniversity Hospitals Geauga Medical CenterComment on above:Performed By: #### ESA, BMP #### [facility] [address] [place] [address] Developmental Therapist: Natacha Parktelets (Bld) [#/Vol]124 10*3/lRFmw430-890JrskrUniversity Hospitals Geauga Medical CenterComment on above:Performed By: #### CDP, BMP #### [facility] [address] [place] [address] Developmental Therapist: EN ParkBC (Bld) [#/Vol]3.03 10*6/uLLow4.0-5.2MWayne HealthCare Main CampusComment on above:Performed By: #### CDP, BMP #### [facility] [address] [place] [address] Developmental Therapist: SHERIF ParkBC (Bld) [#/Vol]8.4 10*3/uLNormal3.5-11.0[facility] Medical CenterComment on above:Performed By: #### CDP, BMP #### [facility] [address], [place] [id number] Developmental Therapist: MDAbs. VivianImm.GranulocyteNOT REPORTEDNormal0.00-0.30 [facility] Medical CenterComment on above:Performed By: #### CDP, BMP #### [facility] [address] [phone] Developmental Therapist: Tami Park GranulocyteNOT QBOUZMBZBlkcwu1MxwqdUniversity Hospitals Geauga Medical CenterComment on above:Performed By: #### CDP, BMP #### [facility] [address] [phone] Developmental Therapist: KALYAN ParkPVNOT REPORTEDNormal6.0-12.0[facility]aug[facility] Medical CenterComment on above:Performed By: #### CDP, BMP #### [facility] [address], [place] [id number] Developmental Therapist: EUGENIA Park AutomatedNOT REPORTEDNormalUniversity Hospitals Geauga Medical CenterComment on above:Performed By: #### CDP, BMP #### [facility] [address], [place] [id number] Developmental Therapist: Raymond Park EstimateNOT REPORTEDNormalUniversity Hospitals Geauga Medical CenterComment on above:Performed By: #### CDP, BMP #### [facility] [address], [place] [id number] Developmental Therapist: YAYA Park morphology finding Nom (Bld)NOT REPORTEDNormal [facility] Geauga Medical CenterComment on above:Performed By: #### CDP, BMP #### [facility] [address], [place] [id number] Developmental Therapist: ANDER Park MorphologyNOT REPORTEDNormalUniversity Hospitals Geauga Medical CenterComment on above:Performed By: #### CDP, BMP #### [facility] [address] [place] [address] Developmental Therapist: Erna Park Metabolic PanelOrdered By: Aurelio Saldana on 15-68-3487Cstex gap [Moles/Vol]5 mmol/LLow9 - 17 mmol/LMpromedica toledo hospital [employer] Work Phone: calcium [Mass/Vol]8.2 mg/dLLow8.6 - 10.4 mg/dLMercy Health Lorain Hospital BuildingIQ Phone: chloride [Moles/Vol]104 mmol/L98 - 107 mmol/LMpromedica toledo hospital BuildingIQ Phone: cO2 [Moles/Vol]26 mmol/L20 - 31 mmol/LMpromedica toledo hospital [employer] Work Phone: creatinine [Mass/Vol]1.18 mg/dLHigh0.50 - 0.90 mg/dL [facility] [employer] Phone: GFR Hrmmquhy77 mL/minLow>60[facility] HospitalPen[facility] Phone: GFR Non- Awhbhsqs15 mL/minLow>60[facility] [employer] Phone: GFR/1.73 sq M.predicted MDRD (S/P/Bld) [Vol rate/Area] [facility] HospitalShopWiki Phone: comment on above:Average GFR for 70 or more years old: 75 mL/min/1.73sq m Chronic Kidney Disease: <60 mL/min/1.73sq m Kidney failure: <15 mL/min/1.73sq m eGFR calculated using average adult body mass. Additional eGFR calculator available at: http://www.Distra/multiple_crcl_2012.htm GFR/1.73 sq M.predicted MDRD (S/P/Bld) [Vol rate/Area]NOT REPORTEDShelby Memorial HospitalPenstar Technologies Phone: Glucose [Mass/Vol]97 mg/dL70 - 99 mg/dLMercy Health Lorain Hospital BuildingIQ Phone: Interpretation and review of laboratory results AbnormalMercy Health Lorain Hospital BuildingIQ Phone: potassium [Moles/Vol]4.6 mmol/L3.7 - 5.3 mmol/LMMemorial Hospital Work Phone: sodium [Moles/Vol]135 mmol/L135 - 144 mmol/LMuk healthcarey [facility] Work Phone: Urea nitrogen (BldV) [Mass/Vol]18 mg/dL8 - 23 mg/dL [facility] [employer]) Phone: Urea nitrogen/Creatinine (Bld) [Mass ratio]15[facility] [employer] Phone: [facility] [employer] Phone: basic Metabolic Profon 01-12-2021(cont.)NormalUniversity Hospitals Geauga Medical CenterComment on above:Result Comment: Average GFR for 70 or more years old: 75 mL/min/1.73sq m Chronic Kidney Disease: <60 mL/min/1.73sq m Kidney failure: <15 mL/min/1.73sq m eGFR calculated using average adult body mass. Additional eGFR calculator available at: http://www.Distra/multiple_crcl_2012.htmPerformed By: #### ESA, BMPX #### [facility] [address] [place] [address] Developmental Therapist: Rhoda Park gap [Moles/Vol]5 mmol/LLow9-17[facility] Geauga Medical CenterComment on above:Performed By: #### ESA, BMPX #### [facility] [address] [facility] [place] [address] Developmental Therapist: Darryl Granger MDBUN/CRE Xeihp44Adxsjq0-67Bdzxb [facility] Comment on above:Performed By: #### ESA, BMPX #### [facility] [address] [id number] Developmental Therapist: FRANKIE Parkalcium [Mass/Vol]8.2 mg/dLLow8.6-10.4[facility]als Geauga Medical CenterComment on above:Performed By: #### CDP, BMPX #### [facility] [address] [id number] Developmental Therapist: FRANKIE Parkhloride [Moles/Vol]104 mmol/UUgcmcq36-976FdymdUniversity Hospitals Geauga Medical CenterComment on above:Performed By: #### CDP, BMPX #### [facility] [address] [place] [address] Developmental Therapist: FRANKIE ParkO2 [Moles/Vol]26 mmol/TCqsdli42-65EcqhqUniversity Hospitals Geauga Medical CenterComment on above:Performed By: #### CDP, BMPX #### [facility] [address] [place] [address] Developmental Therapist: FRANKIE Parkreatinine [Mass/Vol]1.18 mg/dLHigh0.50-0.90[facility] Geauga Medical CenterComment on above:Performed By: #### CDP, BMPX #### [facility] [address] [place] [address] Developmental Therapist: Darryl Granger MDGFR, Amer55 mL/minLow>60[facility] Geauga Medical CenterComment on above:Performed By: #### CDP, BMPX #### [facility] [address] [place] [address] Developmental Therapist: Darryl Granger MDGFR,non Amer45 mL/minLow>60[facility] Geauga Medical CenterComment on above:Performed By: #### CDP, BMPX #### [facility] [address] [place] [address] Developmental Therapist: Darryl Granger MDGlucose [Mass/Vol]97 mg/nEFdtwnp94-83BjqoaWayne HealthCare Main CampusComment on above:Performed By: #### CDP, BMPX #### [facility] [address] [place] [address] Developmental Therapist: Darryl Granger MDPotassium [Moles/Vol]4.6 mmol/LNormal3.7-5.3MWayne HealthCare Main CampusComment on above:Performed By: #### CDP, BMPX #### [facility] [address] [place] [address] Developmental Therapist: Darryl Granger MDSodium [Moles/Vol]135 mmol/CHmrtlb323-990XqadcUniversity Hospitals Geauga Medical CenterComment on above:Performed By: #### CDP, BMPX #### [facility] [address] [place] [address] Developmental Therapist: Darryl Granger MDUrea nitrogen [Mass/Vol]18 mg/dLNormal8-23University [facility]als Geauga Medical CenterComment on above:Performed By: #### CDP, BMPX #### [facility] [address] [id number] Developmental Therapist: JANICE Parktaging:NOT REPORTEDNoUniversity Hospitals Elyria Medical Center Comment on above:Performed By: #### CDP, BMPX #### [facility] [address] [id number] Developmental Therapist: DANI Park Auto DifferentialOrdered By: Aurelio Saldana on [id number] Eos #0.00[facility] [employer] Work Phone: absolute Immature GranulocyteNOT REPORTEDMer [employer] Work Phone: absolute Lymph #1.20[facility] [employer] Work Phone: absolute [place] #0.90[facility] [employer] Work Phone: basophils (Bld) [#/Vol]0.00 10*3/uLMerPenstar Technologies Phone: basophils/100 WBC (Bld)0 %0 - 2 %[employer] Phone: differential TypeYESMercShopWiki Phone: eosinophils/100 WBC (Bld)0 %0 - 5 %[employer] Phone: Hematocrit (Bld) [Volume fraction]26.5 %Low36 - 46 % [employer] Phone: Hemoglobin.gastrointestinal spec 1 Ql (Stl)8.8 g/dLLow 12.0 - 16.0 g/dLShelby Memorial HospitalPenstar Technologies Phone: Immature GranulocytesNOT REPORTED0 %E In[employer] Phone: Interpretation and review of laboratory results AbnormalShelby Memorial HospitalPenstar Technologies Phone: lymphocytes/100 WBC (Bld)11 %Low15 - 40 %[employer] Phone: MCH (RBC) [Entitic mass]27.3 pg26 - 34 pgShelby Memorial HospitalPenstar Technologies Phone: MCHC (RBC) [Mass/Vol]33.2 g/dL31 - 37 g/dLShelby Memorial HospitalPenstar Technologies Phone: MCV (RBC) [Entitic vol]82.2 fL80 - 100 fLShelby Memorial HospitalPenstar Technologies Phone: Monocytes/100 WBC (Bld)8 %4 - 8 %[employer] Phone: NRBC AutomatedNOT REPORTEDper 100 WBCShelby Memorial HospitalPenstar Technologies Phone: platelet distribution width (Bld) [Ratio]18.7 %High 12.1 - 15.2 %E In[employer] Phone: platelet EstimateNOT REPORTEDShelby Memorial HospitalPenstar Technologies Phone: platelet mean volume (Bld) [Entitic vol]NOT REPORTED 6.0 - 12.0 fLShelby Memorial HospitalPenstar Technologies Phone: Klatelets (Bld) [#/Vol]114 10*3/uLLowShelby Memorial HospitalPenstar Technologies Phone: RBC (Bld) [#/Vol]3.23 10*6/uLLow4.0 - 5.2 m/WaterlooPenstar Technologies Phone: RBC (Bld) [#/Vol]NOT REPORTEDShelby Memorial HospitalPenstar Technologies Phone: segmented neutrophils/100 WBC (Bld)81 %High47 - 75 % [facility] HospitalShopWiki Phone: Hegs Absolute8.90HighShelby Memorial HospitalPenstar Technologies Phone: WBC (Bld) [#/Vol]10.9 10*3/WaterlooPen[employer] Technologies Phone: WBC (Bld) [#/Vol]NOT REPORTEDShelby Memorial HospitalPenstar Technologies Phone: [facility] HospitalPenstar Technologies Phone: cBC with Diffon [id number]. Basophil0.00 k/uLNormal 0.0-0.2MWayne HealthCare Main CampusComment on above:Performed By: #### CDP, BMPX #### [facility] [address] [phone] Developmental Therapist: [place] Park.Neutrophil (Seg)8.90 k/uLHigh2.5-7.0[facility]als Geauga Medical CenterComment on above:Performed By: #### CDP, BMPX #### [facility] [address] [place] [address] Developmental Therapist: James Park Diff PerformedYESNoUniversity Hospitals Elyria Medical Center Comment on above:Performed By: #### CDP, BMPX #### [facility] [address] [place] [address] Developmental Therapist: Darryl Sturtz, MDBasophils/100 WBC (Bld)0 %Normal0-2MWayne HealthCare Main CampusComment on above:Performed By: #### CDP, BMPX #### [facility] [address] [place], [place] [id number] Developmental Therapist: LISE Parkosinophils (Bld) [#/Vol]0.00 10*3/uLNormal0.0-0.4 [facility] Medical CenterComkalkaska memorial health center on above:Performed By: #### CDP, BMPX #### [facility] [address] [place] [address] Developmental Therapist: LISE Parkosinophils/100 WBC (Bld)0 %Normal0-5[facility]auga Medical CenterComment on above:Performed By: #### CDP, BMPX #### [facility] [address] [place] [address] Developmental Therapist: Darryl Granger MDErythrocyte distribution width (RBC) [Ratio]18.7 % High12.1-15.2MWayne HealthCare Main CampusComment on above:Performed By: #### ESA, BMPX #### [facility] [address] [place] [address] Developmental Therapist: Darryl Granger MDHematocrit (Bld) [Volume fraction]26.5 %Zmb47-13 [facility] Ge[facility] Medical CenterComkalkaska memorial health center on above:Performed By: #### CDP, BMPX #### [facility] [address] [phone] Developmental Therapist: Darryl Granger MDHemoglobin (Bld) [Mass/Vol]8.8 g/dLLow12.0-16.0 [facility] Medical CenterComkalkaska memorial health center on above:Performed By: #### CDP, BMPX #### [facility] [address] [phone] Developmental Therapist: Darryl Granger MDLymphocytes (Bld) [#/Vol]1.20 10*3/uLNormal1.0-4.8 [facility] on above:Performed By: #### CDP, BMPX #### [facility] [address] [place], [place] [id number] Developmental Therapist: Darryl Granger MDLymphocytes/100 WBC (Bld)11 %Oju71-89DzynvUniversity Hospitals Geauga Medical CenterComment on above:Performed By: #### CDP, BMPX #### [facility] [address] [phone] Developmental Therapist: KALYAN ParkCH (RBC) [Entitic mass]27.3 cnTkbwko40-18KbyloUniversity Hospitals Geauga Medical CenterComkalkaska memorial health center on above:Performed By: #### EAS, BMPX #### [facility] [address] [id number] Developmental Therapist: ALANA ParkC (RBC) [Mass/Vol]33.2 g/rVMlxmpg29-43BwzcrUniversity Hospitals Geauga Medical CenterComment on above:Performed By: #### ESA, BMPX #### [facility] [address] [place], [place] [id number] Developmental Therapist: KALYAN ParkCV (RBC) [Entitic vol]82.2 qMAfbfei33-982EfblkUniversity Hospitals Geauga Medical CenterComkalkaska memorial health center on above:Performed By: #### CDP, BMPX #### [facility] [address] [phone] Developmental Therapist: KALYAN Parkonocytes (Bld) [#/Vol]0.90 10*3/uLNormal0.0-1.0 [facility] on above:Performed By: #### CDP, BMPX #### [facility] [address] [place] [address] Developmental Therapist: KALYAN Parkonocytes/100 WBC (Bld)8 %Normal4-8[facility] Geauga Medical CenterComment on above:Performed By: #### CDP, BMPX #### [facility] [address] [place] [address] Developmental Therapist: Samra Park (Seg)81 %Xaex82-29EgguhUniversity Hospitals Geauga Medical CenterComment on above:Performed By: #### CDP, BMPX #### [facility] [address] [place] [address] Developmental Therapist: Cas Park (Bld) [#/Vol]114 10*3/tXHcu919-931CiejlUniversity Hospitals Geauga Medical CenterComment on above:Performed By: #### CDP, BMPX #### [facility] [address] [place] [address] Developmental Therapist: EN ParkBC (Bld) [#/Vol]3.23 10*6/uLLow4.0-5.2MWayne HealthCare Main CampusComment on above:Performed By: #### CDP, BMPX #### [facility] [address] [place] [address] Developmental Therapist: ANDER Park (Bld) [#/Vol]10.9 10*3/uLNormal3.5-11.0[facility] Medical CenterComment on above:Performed By: #### CDP, BMPX #### [facility] [address] [phone] Developmental Therapist: [place].Imm.GranulocyteNOT REPORTEDNormal0.00-0.30 [facility] Medical CenterComment on above:Performed By: #### CDP, BMPX #### [facility] [address] [place], [place] [phone] Developmental Therapist: Tami Park GranulocyteNOT PJZVBARKHluexi0OjpgyUniversity Hospitals Geauga Medical CenterComment on above:Performed By: #### CDP, BMPX #### [facility] [address] [place], [place] [phone] Developmental Therapist: KALYAN ParkPVNOT REPORTEDNormal6.0-12.0[facility] Medical CenterComment on above:Performed By: #### CDP, BMPX #### [facility] [address] [place], [place] [id number] Developmental Therapist: EUGENIA Park AutomatedNOT REPORTEDNormalUniversity Hospitals Geauga Medical CenterComment on above:Performed By: #### CDP, BMPX #### [facility] [address] [place], [place] [address] Developmental Therapist: Raymond Park EstimateNOT REPORTEDNormalMercy Health St. [facility] HospitalComment on above:Performed By: #### CDP, BMPX #### [facility] [address] [place], [place] [phone] Developmental Therapist: YAYA Park morphology finding Nom (Bld)NOT REPORTEDNormal [facility] Medical CenterComment on above:Performed By: #### CDP, BMPX #### [facility] [address] [place], [place] [id number] Developmental Therapist: ANDER Park MorphologyNOT REPORTEDNormalUniversity Hospitals Geauga Medical CenterComment on above:Performed By: #### CDP, BMPX #### [facility] [address] [place], [place] [id number] Developmental Therapist: Erna Park Metabolic PanelOrdered By: Eugene Michelle on [id number] gap [Moles/Vol]3 mmol/LLow9 - 17 mmol/LMercy Health Work Phone: calcium [Mass/Vol]7.9 mg/dLLow8.6 - 10.4 mg/dLMercy Health Lorain Hospital [employer] Work Phone: chloride [Moles/Vol]108 mmol/LHigh98 - 107 mmol/LMProNoxisy [employer] Phone: cO2 [Moles/Vol]26 mmol/L20 - 31 mmol/LMuk healthcarey [employer] Phone: creatinine [Mass/Vol]1.35 mg/dLHigh0.50 - 0.90 mg/dL E Ink Phone: GFR Adsjkasm22 mL/minLow>60[facility] HospitalPenstar Technologies Phone: GFR Non- Lhyobmoe32 mL/minLow>60S[facility] HospitalPenstar Technologies Phone: GFR/1.73 sq M.predicted MDRD (S/P/Bld) [Vol rate/Area] [facility] HospitalShopWiki Phone: comment on above:Average GFR for 70 or more years old: 75 mL/min/1.73sq m Chronic Kidney Disease: <60 mL/min/1.73sq m Kidney failure: <15 mL/min/1.73sq m eGFR calculated using average adult body mass. Additional eGFR calculator available at: http://www.Distra/multiple_crcl_2012.htm GFR/1.73 sq M.predicted MDRD (S/P/Bld) [Vol rate/Area]NOT REPORTEDShelby Memorial HospitalPenstar Technologies Phone: Glucose [Mass/Vol]102 mg/wKCaqi19 - 99 mg/dLShelby Memorial HospitalPenstar Technologies Phone: Interpretation and review of laboratory results AbnormalShelby Memorial HospitalPenstar Technologies Phone: potassium [Moles/Vol]4.8 mmol/L3.7 - 5.3 mmol/LMuk healthcarey [employer] Phone: sodium [Moles/Vol]137 mmol/L135 - 144 mmol/LMuk healthcarey [employer] Phone: Urea nitrogen (BldV) [Mass/Vol]19 mg/dL8 - 23 mg/dL [facility] HospitalShopWiki Phone: Urea nitrogen/Creatinine (Bld) [Mass ratio]14[facility] Work Phone: basic Metabolic Profon 01-11-2021(cont.)[facility]acon[facility] HospitalComment on above:Result Comment: Average GFR for 70 or more years old: 75 mL/min/1.73sq m Chronic Kidney Disease: <60 mL/min/1.73sq m Kidney failure: <15 mL/min/1.73sq m eGFR calculated using average adult body mass. Additional eGFR calculator available at: http://www.Distra/multiple_crcl_2012.htmPerformed By: #### HH #### [facility] [address] [place] [address] Developmental Therapist: Darryl Granger MDAnion gap [Moles/Vol]3 mmol/LLow9-17[facility] Geauga Medical CenterComment on above:Performed By: #### HH #### [facility] [address] [place] [address] Developmental Therapist: Darryl Granger MDBUN/CRE Vjyvx40Sdgtbk8-67Qznyg [facility] Comment on above:Performed By: #### HH #### [facility] [address] [place] [address] Developmental Therapist: FRANKIE Parkalcium [Mass/Vol]7.9 mg/dLLow8.6-10.4[facility]auga Medical CenterComment on above:Performed By: #### HH #### [facility] [address] [place] [address] Developmental Therapist: FRANKIE Parkhloride [Moles/Vol]108 mmol/QZcni18-593CingaUniversity Hospitals Geauga Medical CenterComment on above:Performed By: #### HH #### [facility] [address] [place] [address] Developmental Therapist: FRANKIE ParkO2 [Moles/Vol]26 mmol/CDugzub10-21KqfwqUniversity Hospitals Geauga Medical CenterComment on above:Performed By: #### HH #### [facility] [address] [place], [place] [id number] Developmental Therapist: FRANKIE Parkreatinine [Mass/Vol]1.35 mg/dLHigh0.50-0.90[facility] HospitalComment on above:Performed By: #### HH #### [facility] [address] [place], [place] [id number] Developmental Therapist: Darryl Granger MDGFR, Amer47 mL/minLow>60[facility] HospitalComment on above:Performed By: #### HH #### [facility] [address] [place] [address] Developmental Therapist: Darryl Granger MDGFR,non Amer39 mL/minLow>60[facility] HospitalComment on above:Performed By: #### HH #### [facility] [address] [place], [place] [address] Developmental Therapist: Darryl Granger MDGlucose [Mass/Vol]102 mg/eXBvvn05-34Knpoe [facility]burgh HospitalComment on above:Performed By: #### HH #### [facility] [address] [place], [place] [phone] Developmental Therapist: ABDIEL Parkotassium [Moles/Vol]4.8 mmol/LNormal3.7-5.3MTogus VA Medical Center HospitalComment on above:Performed By: #### HH #### [facility] [address] [place], [place] [phone] Developmental Therapist: Darryl Granger MDSodium [Moles/Vol]137 mmol/MTklhda661-759Jnbzv [facility] HospitalComment on above:Performed By: #### HH #### [facility] [address] [place] [address] Developmental Therapist: Darryl Granger MDUrea nitrogen [Mass/Vol]19 mg/dLNormal8-23[facility] Medical CenterComment on above:Performed By: #### HH #### [facility] [address] [place] [address] Developmental Therapist: JANICE Parktaging:NOT REPORTEDNoUniversity Hospitals Elyria Medical Center Comment on above:Performed By: #### HH #### [facility] [address] [phone] Developmental Therapist: Richard Park 90-20-5870Oriidrtjnnp distribution width (RBC) [Ratio]19.5 %High12.1-15.2MWayne HealthCare Main CampusComment on above:Performed By: #### MARIO WESLEY #### [facility] [address] [place] [address] Developmental Therapist: Darryl Granger MDHematocrit (Bld) [Volume fraction]26.9 %Dyi15-42 [facility] Medical CenterComment on above:Performed By: #### MARYJANE LACFERNANDA #### [facility] [address] [place] [address] Developmental Therapist: Darryl Granger MDHemoglobin (Bld) [Mass/Vol]9.0 g/dLLow12.0-16.0 [facility] Medical CenterComment on above:Performed By: #### MARYJANE, LACDS #### [facility] [address] [place] [address] Developmental Therapist: KALYAN ParkCH (RBC) [Entitic mass]27.5 iwTxplli63-53ZhurvUniversity Hospitals Geauga Medical CenterComment on above:Performed By: #### MARYJANE, LACDS #### [facility] [address] [place] [address] Developmental Therapist: KALYAN ParkCHC (RBC) [Mass/Vol]33.5 g/eNZytldm40-91Kwdrh [facility] HospitalComment on above:Performed By: #### MARYJANE, LACDS #### [facility] [address] [place], [place] [phone] Developmental Therapist: PILY Park (RBC) [Entitic vol]82.2 vMItrljs97-031Ezdcw [facility] HospitalComment on above:Performed By: #### MARYJANE, LACDS #### [facility] [address] [place], [place] [phone] Developmental Therapist: Cas Park (Bld) [#/Vol]109 10*3/sGZfd380-420Vvnvv [facility] HospitalComment on above:Performed By: #### MARYJANE, LACDS #### [facility] [address] [place], [place] [phone] Developmental Therapist: YAYA Park (Bld) [#/Vol]3.27 10*6/uLLow4.0-5.2MercFisher-Titus Medical Center HospitalComment on above:Performed By: #### MARIO WESLEY #### [facility] [address] [place] [address] Developmental Therapist: ANDER Park (Bld) [#/Vol]12.1 10*3/uLHigh3.5-11.0[facility] HospitalComment on above:Performed By: #### MARYJANE, LACDS #### [facility] [address] [place], [place] [phone] Developmental Therapist: KALYAN ParkPVNOT REPORTEDNormal6.0-12.0[facility] HospitalComment on above:Performed By: #### MARYJANE, LACDS #### [facility] [address] [place], [place] [phone] Developmental Therapist: EUGENIA Park AutomatedNOT REPORTEDNormalMercy Health St. [facility] HospitalComment on above:Performed By: #### MARYJANE, LACDS #### [facility] [address] [facility] [place] [address] Developmental Therapist: FRANKIE ParkBCOrdered By: Isaias Lowry on 01-11-2021 Hematocrit (Bld) [Volume fraction]26.9 %Low36 - 46 %[employer] Phone: Hemoglobin.gastrointestinal spec 1 Ql (Stl)9.0 g/dLLow 12.0 - 16.0 g/dLE Ink Phone: Interpretation and review of laboratory results AbnormalE Ink Phone: MCH (RBC) [Entitic mass]27.5 pg26 - 34 pgE Ink Phone: MCHC (RBC) [Mass/Vol]33.5 g/dL31 - 37 g/dLE Ink Phone: MCV (RBC) [Entitic vol]82.2 fL80 - 100 fLE Ink Phone: NRBC AutomatedNOT REPORTEDper 100 WBCE Ink Phone: platelet distribution width (Bld) [Ratio]19.5 %High 12.1 - 15.2 %[employer] Phone: platelet mean volume (Bld) [Entitic vol]NOT REPORTED 6.0 - 12.0 fLE Ink Phone: platelets (Bld) [#/Vol]109 10*3/uLLowE Ink Phone: RBC (Bld) [#/Vol]3.27 10*6/uLLow4.0 - 5.2 m/uLE Ink Phone: WBC (Bld) [#/Vol]12.1 10*3/uLHighE Ink Phone: [employer]Pen[employer] Phone: cBC Auto DifferentialOrdered By: Isaias Lowry on [id number] Eos #0.00[facility] HospitalPenstar Technologies Phone: absolute Immature GranulocyteNOT REPORTEDShelby Memorial HospitalPenstar Technologies Phone: absolute Lymph #1.50[facility] HospitalPen[facility] Technologies Phone: absolute [place] #0.90[facility] HospitalPen[facility] Technologies Phone: basophils (Bld) [#/Vol]0.00 10*3/uLShelby Memorial HospitalPenstar Technologies Phone: basophils/100 WBC (Bld)0 %0 - 2 %[employer] Phone: differential TypeNOT REPORTEDShelby Memorial HospitalPenstar Technologies Phone: eosinophils/100 WBC (Bld)0 %0 - 5 %[employer] Phone: Hematocrit (Bld) [Volume fraction]26.5 %Low36 - 46 % [employer] Phone: Hemoglobin.gastrointestinal spec 1 Ql (Stl)8.9 g/dLLow 12.0 - 16.0 g/dLShelby Memorial HospitalPenstar Technologies Phone: Immature GranulocytesNOT REPORTED0 %E [employer]k Phone: Interpretation and review of laboratory results AbnormalShelby Memorial HospitalPenstar Technologies Phone: lymphocytes/100 WBC (Bld)12 %Low15 - 40 %E Ink Phone: MCH (RBC) [Entitic mass]27.5 pg26 - 34 pgShelby Memorial HospitalPenstar Technologies Phone: MCHC (RBC) [Mass/Vol]33.5 g/dL31 - 37 g/dLShelby Memorial HospitalPenstar Technologies Phone: MCV (RBC) [Entitic vol]82.2 fL80 - 100 fLShelby Memorial HospitalPenstar Technologies Phone: Monocytes/100 WBC (Bld)7 %4 - 8 %[employer] Phone: Morphology Pramod (Bld) [Interp]SLIGHT DECREASED PLATELETSShelby Memorial HospitalBrainBot Work Phone: Morphology Pramod (Bld) [Interp]SLIGHT ANISOCYTOSISShelby Memorial HospitalPenstar Technologies Phone: NRBC AutomatedNOT REPORTEDper 100 WBCShelby Memorial HospitalBrainBot Work Phone: platelet distribution width (Bld) [Ratio]19.3 %High 12.1 - 15.2 %E Ink Phone: platelet EstimateNOT REPORTEDShelby Memorial HospitalPenstar Technologies Phone: platelet mean volume (Bld) [Entitic vol]NOT REPORTED 6.0 - 12.0 fLShelby Memorial HospitalPenstar Technologies Phone: Klatelets (Bld) [#/Vol]107 10*3/uLLowShelby Memorial HospitalBrainBot Work Phone: RBC (Bld) [#/Vol]3.23 10*6/uLLow4.0 - 5.2 m/uLShelby Memorial HospitalPenstar Technologies Phone: RBC (Bld) [#/Vol]NOT REPORTEDShelby Memorial HospitalPenstar Technologies Phone: Segmented neutrophils/100 WBC (Bld)81 %High47 - 75 % [facility] HospitalShopWiki Phone: Segs Ebsybwdd35.30HighShelby Memorial HospitalPenstar Technologies Phone: WBC (Bld) [#/Vol]12.8 10*3/uLHighShelby Memorial HospitalPenstar Technologies Phone: [phone] (Bld) [#/Vol]NOT REPORTEDShelby Memorial HospitalPenstar Technologies Phone: [facility] HospitalBrainBot Work Phone: CBC Auto DifferentialOrdered By: Eugene Michelle on [id number] Eos #0.00[facility] HospitalBrainBot Work Phone: Absolute Immature GranulocyteNOT REPORTEDShelby Memorial HospitalPenstar Technologies Phone: absolute Lymph #2.10[facility] HospitalPen[facility] Technologies Phone: absolute [place] #0.90[facility] HospitalPen[facility] Technologies Phone: basophils (Bld) [#/Vol]0.00 10*3/uLShelby Memorial HospitalPenstar Technologies Phone: basophils/100 WBC (Bld)0 %0 - 2 %[employer] Phone: differential TypeNOT REPORTEDShelby Memorial HospitalPenstar Technologies Phone: eosinophils/100 WBC (Bld)0 %0 - 5 %[employer] Phone: Hematocrit (Bld) [Volume fraction]27.6 %Low36 - 46 % [employer] Phone: Hemoglobin.gastrointestinal spec 1 Ql (Stl)9.2 g/dLLow 12.0 - 16.0 g/dLShelby Memorial HospitalPenstar Technologies Phone: Immature GranulocytesNOT REPORTED0 %E [employer] Phone: Interpretation and review of laboratory results AbnormalShelby Memorial HospitalPenstar Technologies Phone: lymphocytes/100 WBC (Bld)18 %15 - 40 %E Ink Phone: MCH (RBC) [Entitic mass]27.2 pg26 - 34 pgShelby Memorial HospitalPenstar Technologies Phone: MCHC (RBC) [Mass/Vol]33.3 g/dL31 - 37 g/dLShelby Memorial HospitalPenstar Technologies Phone: MCV (RBC) [Entitic vol]81.8 fL80 - 100 fLShelby Memorial HospitalPenstar Technologies Phone: Monocytes/100 WBC (Bld)8 %4 - 8 %E In[employer] Phone: Morphology Pramod (Bld) [Interp]SLIGHT ANISOCYTOSISShelby Memorial HospitalPenstar Technologies Phone: NRBC AutomatedNOT REPORTEDper 100 WBCShelby Memorial HospitalPenstar Technologies Phone: Platelet distribution width (Bld) [Ratio]19.4 %High 12.1 - 15.2 %E Ink Phone: Platelet EstimateNOT REPORTEDShelby Memorial HospitalPenstar Technologies Phone: Platelet mean volume (Bld) [Entitic vol]NOT REPORTED 6.0 - 12.0 fLShelby Memorial HospitalPenstar Technologies Phone: Platelets (Bld) [#/Vol]107 10*3/uLLowShelby Memorial HospitalPenstar Technologies Phone: RBC (Bld) [#/Vol]3.37 10*6/uLLow4.0 - 5.2 m/uLShelby Memorial HospitalPenstar Technologies Phone: RBC (Bld) [#/Vol]NOT REPORTEDShelby Memorial HospitalPenstar Technologies Phone: Segmented neutrophils/100 WBC (Bld)74 %47 - 75 %E Ink Phone: Segs Absolute8.80HighShelby Memorial HospitalPenstar Technologies Phone: WBC (Bld) [#/Vol]11.8 10*3/uLKindred Hospital NortheastPenstar Technologies Phone: WBC (Bld) [#/Vol]NOT REPORTEDShelby Memorial HospitalPenstar Technologies Phone: [facility] HospitalPen[facility] Phone: CBC with Diffon [id number] Pramod (Bld) [Interp]SLIGHTNormalUniversity Hospitals Geauga Medical CenterComment on above:Result Comment: DECREASED PLATELETS SLIGHT ANISOCYTOSISPerformed By: #### CDP #### [facility] [address] [place] [address] Developmental Therapist: [place]. Basophil0.00 k/uLNormal0.0-0.2MTogus VA Medical Center HospitalComment on above:Performed By: #### CDP #### [facility] [address] [place] [address] Developmental Therapist: [place].Neutrophil (Seg)10.30 k/uLHigh2.5-7.0University Hospitals Geauga Medical CenterComment on above:Performed By: #### CDP #### [facility] [address] [id number] Developmental Therapist: Darryl Granger MDBasophils/100 WBC (Bld)0 %Normal0-2MTogus VA Medical Center HospitalComment on above:Performed By: #### CDP #### [facility] [address] [place] [address] Developmental Therapist: Darryl Granger MDEosinophils (Bld) [#/Vol]0.00 10*3/uLNormal0.0-0.4 [facility] Geaug[facility] Medical CenterComment on above:Performed By: #### CDP #### [facility] [address] [phone] Developmental Therapist: Darryl Granger MDEosinophils/100 WBC (Bld)0 %Normal0-5[facility] Hospitals Geauga Medical CenterComment on above:Performed By: #### CDP #### [facility] [address] [place] [address] Developmental Therapist: Darryl Granger MDErythrocyte distribution width (RBC) [Ratio]19.3 % High12.1-15.2MWayne HealthCare Main CampusComment on above:Performed By: #### CDP #### [facility] [address] [phone] Developmental Therapist: Darryl Granger MDHematocrit (Bld) [Volume fraction]26.5 %Fak55-05 [facility] Geauga Medical CenterComment on above:Performed By: #### CDP #### [facility] [address] [place], [place] [id number] Developmental Therapist: Darryl Granger MDHemoglobin (Bld) [Mass/Vol]8.9 g/dLLow12.0-16.0 [facility]aug[facility] Medical CenterComment on above:Performed By: #### CDP #### [facility] [address] [place], [place] [phone] Developmental Therapist: Darryl Granger MDLymphocytes (Bld) [#/Vol]1.50 10*3/uLNormal1.0-4.8 [facility] Geaug[facility] Medical CenterComment on above:Performed By: #### CDP #### [facility] [address] [place] [address] Developmental Therapist: Ciaran Parkhocytes/100 WBC (Bld)12 %Qec73-64OdmvvUniversity Hospitals Geauga Medical CenterComment on above:Performed By: #### CDP #### [facility] [address] [place] [address] Developmental Therapist: KALYAN ParkCH (RBC) [Entitic mass]27.5 xzOmsmdh67-89MelzeUniversity Hospitals Geauga Medical CenterComment on above:Performed By: #### CDP #### [facility] [address] [place] [address] Developmental Therapist: ALANA ParkC (RBC) [Mass/Vol]33.5 g/pGOikrwd55-94LwlzbUniversity Hospitals Geauga Medical CenterComment on above:Performed By: #### CDP #### [facility] [address] [place] [address] Developmental Therapist: KALYAN ParkCV (RBC) [Entitic vol]82.2 sBIhkowz43-833IkqtaUniversity Hospitals Geauga Medical CenterComkalkaska memorial health center on above:Performed By: #### CDP #### [facility] [address] [place] [address] Developmental Therapist: KALYAN Parkonocytes (Bld) [#/Vol]0.90 10*3/uLNormal0.0-1.0 [facility] Medical CenterComment on above:Performed By: #### CDP #### [facility] [address] [place] [address] Developmental Therapist: KALYAN Parkonocytes/100 WBC (Bld)7 %Normal4-8[facility] Geauga Medical CenterComment on above:Performed By: #### CDP #### [facility] [address] [place] [address] Developmental Therapist: Pascual Parkutrophil (Seg)81 %Keyh37-34XhglqUniversity Hospitals Geauga Medical CenterComment on above:Performed By: #### CDP #### [facility] [address] [place] [address] Developmental Therapist: Natacha Parktelets (Bld) [#/Vol]107 10*3/mSEsm940-766OaoinUniversity Hospitals Geauga Medical CenterComment on above:Performed By: #### CDP #### [facility] [address] [place] [address] Developmental Therapist: EN ParkBC (Bld) [#/Vol]3.23 10*6/uLLow4.0-5.2MWayne HealthCare Main CampusComment on above:Performed By: #### CDP #### [facility] [address] [place] [address] Developmental Therapist: SHERIF ParkBC (Bld) [#/Vol]12.8 10*3/uLHigh3.5-11.0[facility] Geaug[facility] Medical CenterComment on above:Performed By: #### CDP #### [facility] [address] [place] [address] Developmental Therapist: [place].Imm.GranulocyteNOT REPORTEDNormal0.00-0.30 [facility]aug[facility] Medical CenterComment on above:Performed By: #### CDP #### [facility] [address] [place], [place] [phone] Developmental Therapist: [place] Diff PerformedNOT REPORTEDNormalMercy Health St. [facility] HospitalComment on above:Performed By: #### CDP #### [facility] [address] [place], [place] [address] Developmental Therapist: Tami Park GranulocyteNOT DPXYFFCMFldcqe0Kmekp Willard HospitalComment on above:Performed By: #### CDP #### [facility] [address] [phone] Developmental Therapist: KALYAN ParkPVNOT REPORTEDNormal6.0-12.0[facility] Geauga Medical CenterComment on above:Performed By: #### CDP #### [facility] [address] [phone] Developmental Therapist: EUGENIA Park AutomatedNOT REPORTEDNormalUniversity Hospitals Geauga Medical CenterComment on above:Performed By: #### CDP #### [facility] [address] [place], [place] [phone] Developmental Therapist: Raymond Park EstimateNOT REPORTEDNormalUniversity Hospitals Geauga Medical CenterComment on above:Performed By: #### CDP #### [facility] [address] [place] [address] Developmental Therapist: YAYA Park morphology finding Nom (Bld)NOT REPORTEDNormal [facility] Geauga Medical CenterComment on above:Performed By: #### CDP #### [facility] [address] [place], [place] [phone] Developmental Therapist: ANDER Park MorphologyNOT REPORTEDNormalUniversity Hospitals Geauga Medical CenterComment on above:Performed By: #### CDP #### [facility] [address] [place], [place] [phone] Developmental Therapist: KALYAN Parkorphology Pramod (Bld) [Interp]SLIGHTNormalUniversity Hospitals Geauga Medical CenterComkalkaska memorial health center on above:Result Comment: ANISOCYTOSISPerformed By: #### HH #### [facility] [address] [place], [place] [phone] Developmental Therapist: [place]. Basophil0.00 k/uLNormal0.0-0.2MDayton Osteopathic Hospital on above:Performed By: #### HH #### [facility] [address] [phone] Developmental Therapist: [place].Neutrophil (Seg)8.80 k/uLHigh2.5-7.0[facility] on above:Performed By: #### HH #### [facility] [address] [place], [place] [phone] Developmental Therapist: Darryl Granger MDBasophils/100 WBC (Bld)0 %Normal0-2MWayne HealthCare Main CampusComment on above:Performed By: #### HH #### [facility] [address] [phone] Developmental Therapist: Darryl Granger MDEosinophils (Bld) [#/Vol]0.00 10*3/uLNormal0.0-0.4 [facility] on above:Performed By: #### HH #### [facility] [address] [place], [place] [phone] Developmental Therapist: Darryl Granger MDEosinophils/100 WBC (Bld)0 %Normal0-5[facility] on above:Performed By: #### HH #### [facility] [address] [place] [address] Developmental Therapist: Darryl Granger MDErythrocyte distribution width (RBC) [Ratio]19.4 % High12.1-15.2MWayne HealthCare Main CampusComment on above:Performed By: #### HH #### [facility] [address] [place] [address] Developmental Therapist: Darryl Granger MDHematocrit (Bld) [Volume fraction]27.6 %Evp92-42 [facility]aug[facility] Medical CenterComment on above:Performed By: #### HH #### [facility] [address] [phone] Developmental Therapist: Darryl Granger MDHemoglobin (Bld) [Mass/Vol]9.2 g/dLLow12.0-16.0 [facility] Medical CenterComment on above:Performed By: #### HH #### [facility] [address] [place] [address] Developmental Therapist: Darryl Granger MDLymphocytes (Bld) [#/Vol]2.10 10*3/uLNormal1.0-4.8 [facility] Medical CenterComment on above:Performed By: #### HH #### [facility] [address] [place] [address] Developmental Therapist: Constanza Parkmphocytes/100 WBC (Bld)18 %Xylcbf92-62MleqtUniversity Hospitals Geauga Medical CenterComment on above:Performed By: #### HH #### [facility] [address] [phone] Developmental Therapist: KALYAN ParkCH (RBC) [Entitic mass]27.2 ixReupsv46-82OizuoUniversity Hospitals Geauga Medical CenterComment on above:Performed By: #### HH #### [facility] [address] [phone] Developmental Therapist: KALYAN ParkCHC (RBC) [Mass/Vol]33.3 g/jIMjxrko53-23OikhoUniversity Hospitals Geauga Medical CenterComment on above:Performed By: #### HH #### [facility] [address] [place], [place] [phone] (316) Developmental Therapist: KALYAN ParkCV (RBC) [Entitic vol]81.8 aDLcpnmx66-014ItzjgUniversity Hospitals Geauga Medical CenterComment on above:Performed By: #### HH #### [facility] [address] [place] [address] Developmental Therapist: KALYAN Parkonocytes (Bld) [#/Vol]0.90 10*3/uLNormal0.0-1.0 [facility] Medical CenterComkalkaska memorial health center on above:Performed By: #### HH #### [facility] [address] [place] [address] Developmental Therapist: KALYAN Parkonocytes/100 WBC (Bld)8 %Normal4-8[facility] Medical CenterComment on above:Performed By: #### HH #### [facility] [address] [place] [address] Developmental Therapist: Alexandria Parkophil (Seg)74 %Kubsnz16-13PoczgUniversity Hospitals Geauga Medical CenterComment on above:Performed By: #### HH #### [facility] [address] [place] [address] Developmental Therapist: ABDIEL Parklatelets (Bld) [#/Vol]107 10*3/yWEys962-916ZjlpsUniversity Hospitals Geauga Medical CenterComment on above:Performed By: #### HH #### [facility] [address] [place] [address] Developmental Therapist: EN ParkBC (Bld) [#/Vol]3.37 10*6/uLLow4.0-5.2MTogus VA Medical Center HospitalComment on above:Performed By: #### HH #### [facility] [address] [place] [address] Developmental Therapist: ANDER Park ([facility]) [#/Vol]11.8 10*3/uLHigh3.5-11.0[facility] HospitalComment on above:Performed By: #### HH #### [facility] [address] [place] [address] Developmental Therapist: MDAbs. VivianImm.GranulocyteNOT REPORTEDNormal0.00-0.[address] HospitalComment on above:Performed By: #### HH #### [facility] [address] [place] [address] Developmental Therapist: [place] Diff PerformedNOT REPORTEDNormalMerClinton Memorial Hospital HospitalComment on above:Performed By: #### HH #### [facility] [address] [place] [address] Developmental Therapist: Tami Park GranulocyteNOT VYHAPIOINaajht6Tgcin Alburgh HospitalComment on above:Performed By: #### HH #### [facility] [address] [place] [address] Developmental Therapist: KALYAN ParkPVNOT REPORTEDNormal6.0-12.0[facility] HospitalComment on above:Performed By: #### HH #### [facility] [address] [place] [address] Developmental Therapist: EUGENIA Park AutomatedNOT REPORTEDNormalMercy Alburgh HospitalComment on above:Performed By: #### HH #### [facility] [address] [place] [address] Developmental Therapist: Raymond Park EstimateNOT REPORTEDNormalMerClinton Memorial Hospital HospitalComment on above:Performed By: #### HH #### [facility] [address] [place] [address] Developmental Therapist: YAYA Park morphology finding Nom (Bld)NOT REPORTEDNormal [facility] Medical CenterComment on above:Performed By: #### HH #### [facility] [address] [place] [address] Developmental Therapist: ANDER Park MorphologyNOT REPORTEDNormalUniversity Hospitals Geauga Medical CenterComment on above:Performed By: #### HH #### [facility] [address] [place] [address] Developmental Therapist: Angela Park, Sepsison [id number] Acid, Sepsis1.2 mmol/LNormal0.5-1.9[facility] Geaug[facility] Medical CenterComment on above:Performed By: #### CDP, BMPX #### [facility] [address] [place], [place] [phone] Developmental Therapist: [place] Acid,Sep WbldNOT REPORTEDNormal0.5-1.9[facility] Medical CenterComment on above:Performed By: #### CDP, BMPX #### [facility] [address] [place], [place] [phone] Developmental Therapist: Angela Park, SepsisOrdered By: Isaias Lowry on 63-53-2859Pcvliy Acid, Sepsis1.2 mmol/L0.5 - 1.9 mmol/LMercy Health Work Phone: lactic Acid, Sepsis, Whole BloodNOT REPORTED0.5 - 1.9 mmol/LMercy Health Work Phone: [employer] Work Phone: Magnesiumon 27-14-0712Vejjmxprq [Mass/Vol]1.8 mg/dL Normal1.6-2.6MWayne HealthCare Main CampusComment on above:Performed By: #### HH #### [facility] [address] [place], [place] [phone] Developmental Therapist: Darryl Granger MDMagnesiumOrdered By: Isaias Lowry on 01-11-2021 Magnesium [Mass/Vol]1.8 mg/dL1.6 - 2.6 mg/dLShelby Memorial HospitalPenstar Technologies Phone: No Panel InformationOrdered By: Isaias Lowry on 26-75-6025[facility] Work Phone: TYPE AND SCREENOrdered By: Isaias Lowry on 85-53-7526LUU/RhNegativeMerPenstar Technologies Phone: arm Band NumberNOT REPORTEDMerPenstar Technologies Phone: blood product type Nom (BPU)Leukocyte Reduced Red Cell [facility] HospitalShopWiki Phone: crossmatch ResultCOMPATIBLEShelby Memorial HospitalPenstar Technologies Phone: dispense StatusTRANSFUSEDMpromedica toledo hospital [employer] Work Phone: expiration Date01/12/2021,2359MerPenstar Technologies Phone: Transfusion StatusOK TO TRANSFUSEShelby Memorial HospitalPenstar Technologies Phone: Unit Hibaomu3TvufvPenstar Technologies Phone: Unit [id number] [facility] Work Phone: Unit [id number] Health Work Phone: [facility] HospitalPen[facility] Phone: XR CHEST PORTABLEon [id number] CHEST PORTABLEEXAM: XR CHEST PORTABLE HISTORY: Reason [...] Signed by: Darryl Son MD 01/11/21 Final resultNormalUniversity Hospitals Geauga Medical CenterXR CHEST PORTABLEOrdered By: Isaias Lowry on [id number]: 1. Interval development of the left lower lobe pneumonia with a small left effusion. 2.Old granulomatous disease. 3. Right lung is unremarkable.[employer] Phone: eXAM: XR CHEST PORTABLE HISTORY: Reason [...] left midlung field. EKG leads overlie the chest.[employer] Phone: edi, [facility] Incoming Radiant Results From [facility] - 01/11/2021 6:53 PM EDT EXAM: XR [...] granulomatous disease. 3. Right lung is unremarkable. [employer] Phone: [facility]Pen[facility] Phone: basic Metabolic PanelOrdered By: Eugene Michelle on 66-83-4107Ufhdl gap [Moles/Vol]7 mmol/LLow9 - 17 mmol/LMercy [employer] Work Phone: calcium [Mass/Vol]8.4 mg/dLLow8.6 - 10.4 mg/dLShelby Memorial HospitalPenstar Technologies Phone: chloride [Moles/Vol]106 mmol/L98 - 107 mmol/LMuk healthcarey [employer] Work Phone: cO2 [Moles/Vol]22 mmol/L20 - 31 mmol/LMuk healthcarey [employer] Work Phone: creatinine [Mass/Vol]1.63 mg/dLHigh0.50 - 0.90 mg/dL [facility] HospitalShopW[facility] Phone: GFR Rqgfjtab23 mL/minLow>60[facility] HospitalPen[facility] Phone: GFR Non- Nbhtwvab00 mL/minLow>60[facility] HospitalPen[facility] Phone: GFR/1.73 sq M.predicted MDRD (S/P/Bld) [Vol rate/Area] [facility] HospitalShopW[facility] Phone: comment on above:Average GFR for 70 or more years old: 75 mL/min/1.73sq m Chronic Kidney Disease: <60 mL/min/1.73sq m Kidney failure: <15 mL/min/1.73sq m eGFR calculated using average adult body mass. Additional eGFR calculator available at: http://www.Distra/multiple_crcl_2012.htm GFR/1.73 sq M.predicted MDRD (S/P/Bld) [Vol rate/Area]NOT REPORTEDShelby Memorial HospitalPenstar Technologies Phone: Glucose [Mass/Vol]157 mg/iBSnrg90 - 99 mg/dLShelby Memorial HospitalPenstar Technologies Phone: Interpretation and review of laboratory results AbnormalShelby Memorial HospitalPenstar Technologies Phone: potassium [Moles/Vol]5.4 mmol/LHigh3.7 - 5.3 mmol/L [facility] HospitalShopW[facility] Phone: sodium [Moles/Vol]135 mmol/L135 - 144 mmol/LMuk healthcarey [employer] Work Phone: Urea nitrogen (BldV) [Mass/Vol]19 mg/dL8 - 23 mg/dL [facility] Work Phone: Urea nitrogen/Creatinine (Bld) [Mass ratio]12[facility] Work Phone: [facility] Work Phone: basic Metabolic Profon 01-10-2021(cont.)NormalUniversity Hospitals Geauga Medical CenterComment on above:Result Comment: Average GFR for 70 or more years old: 75 mL/min/1.73sq m Chronic Kidney Disease: <60 mL/min/1.73sq m Kidney failure: <15 mL/min/1.73sq m eGFR calculated using average adult body mass. Additional eGFR calculator available at: http://www.Distra/multiple_crcl_2012.htmPerformed By: #### ESA, BMP #### [facility] [address] [phone] Developmental Therapist: Darryl Granger MDAnion gap [Moles/Vol]7 mmol/LLow9-17[facility]als Geauga Medical CenterComment on above:Performed By: #### ESA, BMP #### [facility] [address] [place] [address] Developmental Therapist: Darryl Granger MDBUN/CRE Cumrs49Jvrnje1-87Frtqc [facility] Comment on above:Performed By: #### ESA, BMP #### [facility] [address] [phone] Developmental Therapist: Darryl Granger MDCalcium [Mass/Vol]8.4 mg/dLLow8.6-10.4[facility] Medical CenterComment on above:Performed By: #### CDP, BMP #### [facility] [address] [phone] Developmental Therapist: FRANKIE Parkhloride [Moles/Vol]106 mmol/JAbaqgr38-395Uorbv Alonzo HospitalComment on above:Performed By: #### CDP, BMP #### [facility] [address] [place] [address] Developmental Therapist: FRANKIE ParkO2 [Moles/Vol]22 mmol/MEpvhxe14-25Bnqvr [facility]ard HospitalComment on above:Performed By: #### CDP, BMP #### [facility] [address] [place] [address] Developmental Therapist: FRANKIE Parkreatinine [Mass/Vol]1.63 mg/dLHigh0.50-0.90[facility] HospitalComment on above:Performed By: #### CDP, BMP #### [facility] [address] [place] [address] Developmental Therapist: Darryl Granger MDGFR, Amer38 mL/minLow>60[facility] HospitalComment on above:Performed By: #### CDP, BMP #### [facility] [address] [place] [address] Developmental Therapist: Darryl Granger MDGFR,non Amer31 mL/minLow>60[facility] HospitalComment on above:Performed By: #### CDP, BMP #### [facility] [address] [place] [address] Developmental Therapist: Darryl Granger MDGlucose [Mass/Vol]157 mg/yRSbmr47-67Brtdy Alburgh HospitalComment on above:Performed By: #### CDP, BMP #### [facility] [address] [place], [place] [phone] Developmental Therapist: ABDIEL Parkotassium [Moles/Vol]5.4 mmol/LHigh3.7-5.3MercFisher-Titus Medical Center HospitalComment on above:Performed By: #### CDP, BMP #### [facility] [address] [place], [place] [phone] Developmental Therapist: JANICE Parkodium [Moles/Vol]135 mmol/KElfghc883-075UdtjrUniversity Hospitals Geauga Medical CenterComment on above:Performed By: #### CDP, BMP #### [facility] [address] [place], [place] [address] Developmental Therapist: Darryl Granger MDUrea nitrogen [Mass/Vol]19 mg/dLNormal8-23[facility]aug[facility] Medical CenterComment on above:Performed By: #### CDP, BMP #### [facility] [address] [place] [address] Developmental Therapist: JANICE Parktaging:NOT REPORTEDNoUniversity Hospitals [facility] Comment on above:Performed By: #### CDP, BMP #### [facility] [address] [place] [address] Developmental Therapist: Darryl Granger [facility] STIGLERDINESH Auto DifferentialOrdered By: Eugene Michelle on 18-06-8834Tuheuxsq Bands #0.19[facility] [employer] Work Phone: absolute Eos #[facility] [employer] Work Phone: comment on above:CORRECTED ON 01/10 AT 0543: PREVIOUSLY REPORTED 0.00Absolute Immature GranulocyteNOT REPORTEDMercy Health Lorain Hospital [employer] Work Phone: absolute Lymph #0.85LowMercy Health Lorain Hospital [employer] Work Phone: comment on above:CORRECTED ON 01/10 AT 0543: PREVIOUSLY REPORTED 0.30Absolute [place] #0.66[facility] [employer] Work Phone: comment on above:CORRECTED ON 01/10 AT 0543: PREVIOUSLY REPORTED 0.32Rymmf3 %0 - 10 %[facility] [address]Pur[address] Work Phone: basophils (Bld) [#/Vol]0 - 2 %[facility] [employer] Work Phone: comment on above:CORRECTED ON 01/10 AT 0543: PREVIOUSLY REPORTED 0Basophils AbsoluteMerPenstar Technologies Phone: comment on above:CORRECTED ON 01/10 AT 0543: PREVIOUSLY REPORTED 0.00Differential TypeNOT REPORTEDShelby Memorial HospitalPenstar Technologies Phone: eosinophils %0 - 5 %[employer] Phone: comment on above:CORRECTED ON 01/10 AT 0543: PREVIOUSLY REPORTED 0Hematocrit (Bld) [Volume fraction]21.6 %Low36 - 46 % [employer] Phone: Hemoglobin.gastrointestinal spec 1 Ql (Stl)7.0 g/dL Critically low12.0 - 16.0 g/dLShelby Memorial HospitalPenstar Technologies Phone: Immature GranulocytesNOT REPORTED0 %[employer] Phone: Interpretation and review of laboratory results AbnormalShelby Memorial HospitalPenstar Technologies Phone: lymphocytes/100 WBC (Bld)9 %Low15 - 40 %[employer] Phone: comment on above:CORRECTED ON 01/10 AT 0543: PREVIOUSLY REPORTED 4MCH (RBC) [Entitic mass]27.8 pg26 - 34 pgShelby Memorial HospitalPenstar Technologies Phone: MCHC (RBC) [Mass/Vol]32.5 g/dL31 - 37 g/dLShelby Memorial HospitalPenstar Technologies Phone: MCV (RBC) [Entitic vol]85.5 fL80 - 100 fLShelby Memorial HospitalPenstar Technologies Phone: Monocytes/100 WBC (Bld)7 %4 - 8 %[employer] Phone: comment on above:CORRECTED ON 01/10 AT 0543: PREVIOUSLY REPORTED 5Morphology Pramod (Bld) [Interp]Manual Differential PerformedShelby Memorial HospitalPenstar Technologies Phone: NRBC AutomatedNOT REPORTEDper 100 WBCShelby Memorial HospitalPenstar Technologies Phone: platelet distribution width (Bld) [Ratio]15.9 %High 12.1 - 15.2 %[employer] Work Phone: platelet EstimateNOT REPORTEDMerBrainBot Work Phone: platelet mean volume (Bld) [Entitic vol]NOT REPORTED 6.0 - 12.0 fLInkerwang Work Phone: Platelets (Bld) [#/Vol]151 10*3/uLMerBrainBot Work Phone: RBC (Bld) [#/Vol]2.53 10*6/uLLow4.0 - 5.2 m/uLMerBrainBot Work Phone: RBC (Bld) [#/Vol]NOT REPORTEDMerBrainBot Work Phone: Seg Yflsipcweta90 %High47 - 75 %[employer] Work Phone: comment on above:CORRECTED ON 01/10 AT 0543: PREVIOUSLY REPORTED 91Segs Absolute7.70HighMerBrainBot Work Phone: comment on above:CORRECTED ON 01/10 AT 0543: PREVIOUSLY REPORTED 8.60WBC (Bld) [#/Vol]9.4 10*3/uLMerBrainBot Work Phone: WBC (Bld) [#/Vol]NOT REPORTEDShelby Memorial HospitalBrainBot Work Phone: MerBrainBot Work Phone: cBC auto differentialOrdered By: Isaias Lowry on [id number] Eos #0.00S[facility]by [facility] HospitalBrainBot Work Phone: Absolute Immature GranulocyteNOT REPORTEDMerBrainBot Work Phone: absolute Lymph #0.70LowMerBrainBot Work Phone: absolute [place] #1.20HighMerBrainBot Work Phone: Basophils (Bld) [#/Vol]0.00 10*3/MerPenstar Technologies Phone: basophils/100 WBC (Bld)0 %0 - 2 %[employer] Phone: differential TypeYESMercShopWiki Phone: eosinophils/100 WBC (Bld)0 %0 - 5 %[employer] Phone: Hematocrit (Bld) [Volume fraction]24.9 %Low36 - 46 % [employer] Phone: Hemoglobin.gastrointestinal spec 1 Ql (Stl)8.3 g/dLLow 12.0 - 16.0 g/dLShelby Memorial HospitalPenstar Technologies Phone: Immature GranulocytesNOT REPORTED0 %[employer] Phone: Interpretation and review of laboratory results AbnormalShelby Memorial HospitalPenstar Technologies Phone: lymphocytes/100 WBC (Bld)7 %Low15 - 40 %[employer] Phone: MCH (RBC) [Entitic mass]28.8 pg26 - 34 pgShelby Memorial HospitalPenstar Technologies Phone: MCHC (RBC) [Mass/Vol]33.5 g/dL31 - 37 g/dLShelby Memorial HospitalPenstar Technologies Phone: MCV (RBC) [Entitic vol]85.8 fL80 - 100 fLShelby Memorial HospitalPenstar Technologies Phone: Monocytes/100 WBC (Bld)12 %High4 - 8 %[employer] Phone: NRBC AutomatedNOT REPORTEDper 100 WBCShelby Memorial HospitalPenstar Technologies Phone: platelet distribution width (Bld) [Ratio]15.5 %High 12.1 - 15.2 %[employer] Phone: platelet EstimateNOT REPORTEDShelby Memorial HospitalPenstar Technologies Phone: platelet mean volume (Bld) [Entitic vol]NOT REPORTED 6.0 - 12.0 fLShelby Memorial HospitalPenstar Technologies Phone: Slatelets (Bld) [#/Vol]135 10*3/uLLowShelby Memorial HospitalBrainBot Work Phone: RBC (Bld) [#/Vol]2.90 10*6/uLLow4.0 - 5.2 m/WaterlooPenstar Technologies Phone: RBC (Bld) [#/Vol]NOT REPORTEDShelby Memorial HospitalPenstar Technologies Phone: segmented neutrophils/100 WBC (Bld)81 %High47 - 75 % [facility] HospitalShopWiki Phone: segs Absolute8.10HighShelby Memorial HospitalPenstar Technologies Phone: WBC (Bld) [#/Vol]10.0 10*3/WaterlooPenstar Technologies Phone: WBC (Bld) [#/Vol]NOT REPORTEDShelby Memorial HospitalPenstar Technologies Phone: [facility] HospitalPen[facility] Technologies Phone: cBC with Diffon [id number]. Basophil0.00 k/uLNormal 0.0-0.2MWayne HealthCare Main CampusComment on above:Performed By: #### HH #### [facility] [address] [place] [address] Developmental Therapist: [place].Neutrophil (Seg)8.10 k/uLHigh2.5-7.0University [facility]als Geauga Medical CenterComment on above:Performed By: #### HH #### [facility] [address] [place] [address] Developmental Therapist: James Park Diff PerformedYESNoUniversity Hospitals Elyria Medical Center Comment on above:Performed By: #### HH #### [facility] [address] [place] [address] Developmental Therapist: Darryl Sturtz, MDBasophils/100 WBC (Bld)0 %Normal0-2MWayne HealthCare Main CampusComment on above:Performed By: #### HH #### [facility] [address] [place], [place] [id number] Developmental Therapist: LISE Parkosinophils (Bld) [#/Vol]0.00 10*3/uLNormal0.0-0.4 [facility] on above:Performed By: #### HH #### [facility] [address] [place] [address] Developmental Therapist: LISE Parkosinophils/100 WBC (Bld)0 %Normal0-5[facility] Geauga Medical CenterComment on above:Performed By: #### HH #### [facility] [address] [place] [address] Developmental Therapist: Darryl Granger MDErythrocyte distribution width (RBC) [Ratio]15.5 % High12.1-15.2MWayne HealthCare Main CampusComment on above:Performed By: #### HH #### [facility] [address] [place] [phone] Developmental Therapist: Darryl Granger MDHematocrit (Bld) [Volume fraction]24.9 %Ywy15-44 [facility] on above:Performed By: #### HH #### [facility] [address] [phone] Developmental Therapist: Darryl Granger MDHemoglobin (Bld) [Mass/Vol]8.3 g/dLLow12.0-16.0 [facility] on above:Performed By: #### HH #### [facility] [address] [place], [place] [id number] Developmental Therapist: Darryl Granger MDLymphocytes (Bld) [#/Vol]0.70 10*3/uLLow1.0-4.8 [facility] Hospitalment on above:Performed By: #### HH #### [facility] [address] [place] [address] Developmental Therapist: Constanza Parkmphocytes/100 WBC (Bld)7 %Mit25-33CwcwrUniversity Hospitals Geauga Medical CenterComment on above:Performed By: #### HH #### [facility] [address] [place] [address] Developmental Therapist: KALYAN ParkCH (RBC) [Entitic mass]28.8 dhSngtmb52-71TsytfUniversity Hospitals Geauga Medical CenterComment on above:Performed By: #### HH #### [facility] [address] [phone] Developmental Therapist: ALANA ParkC (RBC) [Mass/Vol]33.5 g/bVThywkn71-30YownwUniversity Hospitals Geauga Medical CenterComment on above:Performed By: #### HH #### [facility] [address] [place] [address] Developmental Therapist: KALYAN ParkCV (RBC) [Entitic vol]85.8 yUXrooko85-778BiajyUniversity Hospitals Geauga Medical CenterComment on above:Performed By: #### HH #### [facility] [address] [phone] Developmental Therapist: KALYAN Parkonocytes (Bld) [#/Vol]1.20 10*3/uLHigh0.0-1.0 [facility] on above:Performed By: #### HH #### [facility] [address] [place] [address] Developmental Therapist: KALYAN Parkonocytes/100 WBC (Bld)12 %High4-8[facility] Geauga Medical CenterComment on above:Performed By: #### HH #### [facility] [address] [place] [address] Developmental Therapist: Samra Park (Seg)81 %Aeic18-58UbsdhKettering Memorial Hospitalment on above:Performed By: #### HH #### [facility] [address] [place] [address] Developmental Therapist: Cas Park (Bld) [#/Vol]135 10*3/hPDnn379-939FxbdjUniversity Hospitals Geauga Medical CenterComment on above:Performed By: #### HH #### [facility] [address] [place], [place] [phone] Developmental Therapist: YAYA Park (Bld) [#/Vol]2.90 10*6/uLLow4.0-5.2MDayton Osteopathic Hospital on above:Performed By: #### HH #### [facility] [address] [place], [place] [phone] Developmental Therapist: ANDER Park (Bld) [#/Vol]10.0 10*3/uLNormal3.5-11.0[facility] on above:Performed By: #### HH #### [facility] [address] [place], [place] [phone] Developmental Therapist: MDAbs. VivianImmLizetGranulocyteNOT REPORTEDNormal0.00-0.30 [facility] on above:Performed By: #### HH #### [facility] [address] [place] [address] Developmental Therapist: Tami Park GranulocyteNOT XFZLIWQNSdwgdf1CucysGenesis Hospital on above:Performed By: #### HH #### [facility] [address] [place], [place] [id number] Developmental Therapist: KALYAN ParkPVNOT REPORTEDNormal6.0-12.0Mercy Alburgh HospitalComment on above:Performed By: #### HH #### [facility] [address] [place], [place] [phone] Developmental Therapist: EUGENIA Park AutomatedNOT REPORTEDNormalUniversity Hospitals Geauga Medical CenterComment on above:Performed By: #### HH #### [facility] [address] [place], [place] [phone] Developmental Therapist: Raymond Park EstimateNOT REPORTEDNormalMercy Health St. [facility] HospitalComment on above:Performed By: #### HH #### [facility] [address] [place] [address] Developmental Therapist: YAYA Park morphology finding Nom (Bld)NOT REPORTEDNormal [facility]aug[facility] Medical CenterComment on above:Performed By: #### HH #### [facility] [address] [place] [phone] Developmental Therapist: ANDER Park MorphologyNOT REPORTEDNormNationwide Children's HospitalComment on above:Performed By: #### HH #### [facility] [address] [place], [place] [phone] Developmental Therapist: [place]. Bands0.19 k/uLNormal0.0-1.0[facility] Geauga Medical CenterComment on above:Performed By: #### ESA, BMP #### [facility] [address] [place] [address] Developmental Therapist: MDAbs. Vivian BasophilNormal0.0-0.2MWayne HealthCare Main Campus Comment on above:Result Comment: CORRECTED ON 01/10 AT 0543: PREVIOUSLY REPORTED 0.00Performed By: #### ESA, BMP #### [facility] [address] [place], [place] [phone] Developmental Therapist: MDAbs. Vivian EosinophilNormal0.0-0.4[facility] Comment on above:Result Comment: CORRECTED ON 01/10 AT 0543: PREVIOUSLY REPORTED 0.00Performed By: #### CDP, BMP #### [facility] [address] [place] [address] Developmental Therapist: [place].Neutrophil (Seg)7.70 k/uLHigh2.5-7.0[facility] on above:Result Comment: CORRECTED ON 01/10 AT 0543: PREVIOUSLY REPORTED 8.60Performed By: #### CDP, BMP #### [facility] [address] [place] [address] Developmental Therapist: Darryl Granger MDBands2 %Normal0-10[facility]aug[facility] Medical CenterComment on above:Performed By: #### CDP, BMP #### [facility] [address] [place] [phone] Developmental Therapist: Delphine ParksophilNormal0-2MDayton Osteopathic Hospital on above:Result Comment: CORRECTED ON 01/10 AT 0543: PREVIOUSLY REPORTED 0 Performed By: #### CDP, BMP #### [facility] [address] [place] [address] Developmental Therapist: LISE ParkosinophilNormal0-5[facility] on above:Result Comment: CORRECTED ON 01/10 AT 0543: PREVIOUSLY REPORTED 0 Performed By: #### CDP, BMP #### [facility] [address] [place] [address] Developmental Therapist: Ciaran Parkhocytes (Bld) [#/Vol]0.85 10*3/uLLow1.0-4.8 [facility] on above:Result Comment: CORRECTED ON 01/10 AT 0543: PREVIOUSLY REPORTED 0.30Performed By: #### CDP, BMP #### [facility] [address] [place], [place] [phone] Developmental Therapist: Darryl Granger MDLymphocytes/100 WBC (Bld)9 %Rom80-69PuwxvGenesis Hospital on above:Result Comment: CORRECTED ON 01/10 AT 0543: PREVIOUSLY REPORTED 4Performed By: #### CDP, BMP #### [facility] [address] [place], [place] [phone] Developmental Therapist: KALYAN Parkonocytes (Bld) [#/Vol]0.66 10*3/uLNormal0.0-1.0 [facility] on above:Result Comment: CORRECTED ON 01/10 AT 0543: PREVIOUSLY REPORTED 0.50Performed By: #### CDP, BMP #### [facility] [address] [phone] Developmental Therapist: KALYAN Parkonocytes/100 WBC (Bld)7 %Normal4-8[facility] on above:Result Comment: CORRECTED ON 01/10 AT 0543: PREVIOUSLY REPORTED 5Performed By: #### CDP, BMP #### [facility] [address] [place] [address] Developmental Therapist: KALYAN Parkorphology Pramod (Bld) [Interp]Manual Differential PerformedNoChildren's Hospital for Rehabilitation on above:Performed By: #### CDP, BMP #### [facility] [address] [place], [place] [id number] Developmental Therapist: Darryl Granger MDNeutrophil (Seg)82 %Hmxa57-73LjxijGenesis Hospital on above:Result Comment: CORRECTED ON 01/10 AT 0543: PREVIOUSLY REPORTED 91Performed By: #### CDP, BMP #### [facility] [address] [place] [address] Developmental Therapist: Darryl Granger MDErythrocyte distribution width (RBC) [Ratio]15.9 % High12.1-15.2Mercy Alonzo HospitalComment on above:Performed By: #### CDP, BMP #### [facility] [address] [phone] Developmental Therapist: Darryl Granger MDHematocrit (Bld) [Volume fraction]21.6 %Wek44-86 [facility] Medical CenterComkalkaska memorial health center on above:Performed By: #### CDP, BMP #### [facility] [address] [phone] Developmental Therapist: Darryl Granger MDHemoglobin (Bld) [Mass/Vol]7.0 g/dLCritically low 12.0-16.0[facility] Medical CenterComkalkaska memorial health center on above:Performed By: #### CDP, BMP #### [facility] [address] [phone] Developmental Therapist: KALYAN ParkCH (RBC) [Entitic mass]27.8 tkIwfolr83-49BivibUniversity Hospitals Geauga Medical CenterComment on above:Performed By: #### ESA, BMP #### [facility] [address] [place] [address] Developmental Therapist: ALANA ParkC (RBC) [Mass/Vol]32.5 g/sKKsnmhp40-22IvpblGenesis Hospital on above:Performed By: #### ESA, BMP #### [facility] [address] [place] [phone] Developmental Therapist: KALYAN ParkCV (RBC) [Entitic vol]85.5 yWFmgwfo82-307DhyurUniversity Hospitals Geauga Medical CenterComkalkaska memorial health center on above:Performed By: #### CDP, BMP #### [facility] [address] [place] [phone] Developmental Therapist: ABDIEL Parklatelets (Bld) [#/Vol]151 10*3/qMNmmwvi386-070 [facility] Medical CenterComment on above:Performed By: #### CDP, BMP #### [facility] [address] [place] [address] Developmental Therapist: YAYA Park ([facility]) [#/Vol]2.53 10*6/uLLow4.0-5.2MWayne HealthCare Main CampusComment on above:Performed By: #### CDP, BMP #### [facility] [address] [phone] Developmental Therapist: ANDER Park ([facility]) [#/Vol]9.4 10*3/uLNormal3.5-11.0[facility] Medical CenterComment on above:Performed By: #### CDP, BMP #### [facility] [address] [place] [address] Developmental Therapist: MDAbs. VivianImm.GranulocyteNOT REPORTEDNormal0.00-0.30 [facility] Medical CenterComment on above:Performed By: #### CDP, BMP #### [facility] [address] [place] [address] Developmental Therapist: James Park Diff PerformedNOT REPORTEDNormalUniversity Hospitals Geauga Medical CenterComment on above:Performed By: #### CDP, BMP #### [facility] [address] [place], [place] [address] Developmental Therapist: Tami Park GranulocyteNOT QDBVHQSNLwcmmm9FlzvgUniversity Hospitals Geauga Medical CenterComment on above:Performed By: #### CDP, BMP #### [facility] [address] [place], [place] [address] Developmental Therapist: KALYAN ParkPVNOT REPORTEDNormal6.0-12.0[facility] Geaug[facility] Medical CenterComment on above:Performed By: #### CDP, BMP #### [facility] [address] [place], [place] [phone] Developmental Therapist: EUGENIA Park AutomatedNOT REPORTEDNormalMercy Health St. [facility] HospitalComment on above:Performed By: #### CDP, BMP #### [facility] [address] [place] [address] Developmental Therapist: Tee Parklet EstimateNOT REPORTEDNormalMercy Health St. [facility] HospitalComment on above:Performed By: #### CDP, BMP #### [facility] [address] [place] [address] Developmental Therapist: YAYA Park morphology finding Nom (Bld)NOT REPORTEDNormal [facility] HospitalComment on above:Performed By: #### ESA, BMP #### [facility] [address] [place] [address] Developmental Therapist: ANDER Park MorphologyNOT REPORTEDNormTrumbull Memorial Hospital HospitalComment on above:Performed By: #### ESA, BMP #### [facility] [address] [place] [address] Developmental Therapist: Darryl Granger MDType + Screenon [id number] + ScreenSample Expiration 01/12/2021,8246 Arm Band Number NOT REPORTED ABO/Rh(D) A NEGATIVE Antibody Screen NEGATIVE Unit Number [id number] Blood Component Type Leukocyte Reduced Red Cell Unit Division 00 Status of Unit TRANSFUSED Transfusion Status OK TO TRANSFUSE Crossmatch Result COMPATIBLE Unit Number [id number] Blood Component Type Leukocyte Reduced Red Cell Unit Division 00 Status of Unit TRANSFUSED Transfusion Status OK TO TRANSFUSE Crossmatch Result COMPATIBLENormTrumbull Memorial Hospital HospitalComment on above: Performed By: #### ESA, BMPX #### [facility] [address] [place] [address] Developmental Therapist: SAMUEL ParkR ABDOMEN (KUB) (SINGLE AP VIEW)on [id number] ABDOMEN (KUB) (SINGLE AP VIEW)EXAM: XR ABDOMEN [...] Signed by: Gerhard Hamilton MD 01/10/21 Final resultNoUniversity Hospitals Elyria Medical CenterXR ABDOMEN (KUB) (SINGLE AP VIEW)Ordered By: Isaias Lowry on 02-89-1767Akwqwypzgnvzfx bowel gas pattern.[employer] Phone: eXAM: XR ABDOMEN (KUB) (SINGLE AP [...] of free intraperitoneal air. Cholecystectomy clips are present.[employer] Phone: emichael yoly Incoming Radiant Results From [facility] - 01/10/2021 3:51 PM EDT EXAM: XR [...] are present. IMPRESSION: Nonobstructive bowel gas pattern. [employer] Phone: [facility] HospitalPen[facility] Technologies Phone: basic Metab w/rfx MGon 01-09-2021(cont.)[facility]acon[facility] HospitalComment on above:Result Comment: Average GFR for 70 or more years old: 75 mL/min/1.73sq m Chronic Kidney Disease: <60 mL/min/1.73sq m Kidney failure: <15 mL/min/1.73sq m eGFR calculated using average adult body mass. Additional eGFR calculator available at: http://www.[employer].Dental Kidz/multiple_crcl_2012.htmPerformed By: #### CDP, BMPX #### [facility] [address] [place] [phone] Developmental Therapist: Darryl Granger MDAnion gap [Moles/Vol]6 mmol/LLow9-17[facility] Geauga Medical CenterComment on above:Performed By: #### CDP, BMPX #### [facility] [address] [place] [phone] Developmental Therapist: Darryl Granger MDBUN/CRE Cdoqx48Peitvf5-41Uzvrj [facility] Comment on above:Performed By: #### CDP, BMPX #### [facility] [address] [place] [address] Developmental Therapist: FRANKIE Parkalcium [Mass/Vol]8.9 mg/dLNormal8.6-10.4[facility] Geaug[facility] Medical CenterComment on above:Performed By: #### CDP, BMPX #### [facility] [address] [place] [address] Developmental Therapist: FRANKIE Parkhloride [Moles/Vol]102 mmol/XCwnyvc00-037VadxuUniversity Hospitals Geauga Medical CenterComment on above:Performed By: #### CDP, BMPX #### [facility] [address] [place] [address] Developmental Therapist: Darryl Granger MDCO2 [Moles/Vol]28 mmol/BVtedsh91-24SseubUniversity Hospitals Geauga Medical CenterComment on above:Performed By: #### CDP, BMPX #### [facility] [address] [place], [place] [id number] Developmental Therapist: FRANKIE Parkreatinine [Mass/Vol]1.45 mg/dLHigh0.50-0.90[facility] Geauga Medical CenterComment on above:Performed By: #### CDP, BMPX #### [facility] [address] [place] [phone] Developmental Therapist: Darryl Granger MDGFR, Amer43 mL/minLow>60[facility] HospitalComment on above:Performed By: #### CDP, BMPX #### [facility] [address] [place] [address] Developmental Therapist: Darryl Granger MDGFR,non Amer36 mL/minLow>60[facility] HospitalComment on above:Performed By: #### CDP, BMPX #### [facility] [address] [place] [phone] Developmental Therapist: Darryl Granger MDGlucose [Mass/Vol]129 mg/bRXuem15-41Opwff Alburgh HospitalComment on above:Performed By: #### CDP, BMPX #### [facility] [address] [place] [address] Developmental Therapist: ABDIEL Parkotassium [Moles/Vol]6.1 mmol/LCritically high 3.7-5.3MTogus VA Medical Center HospitalComment on above:Performed By: #### CDP, BMPX #### [facility] [address] [place] [phone] Developmental Therapist: JANICE Parkodium [Moles/Vol]136 mmol/IOlhcff893-851Vnnnm Willard HospitalComment on above:Performed By: #### CDP, BMPX #### [facility] [address] [place] [phone] Developmental Therapist: Darryl Granger MDUrea nitrogen [Mass/Vol]17 mg/dLNormal8-23[facility] Medical CenterComment on above:Performed By: #### CDP, BMPX #### [facility] [address] [place] [address] Developmental Therapist: JANICE Parktaging:NOT REPORTEDNoUniversity Hospitals Elyria Medical Center Comment on above:Performed By: #### CDP, BMPX #### [facility] [address] [place] [address] Developmental Therapist: Darryl Granger MDRockville General Hospital Metabolic PanelOrdered By: Isaias Lowry on [id number] gap [Moles/Vol]6 mmol/LLow9 - 17 mmol/LMercy [employer] Work Phone: calcium [Mass/Vol]8.3 mg/dLLow8.6 - 10.4 mg/dLShelby Memorial HospitalBrainBot Work Phone: chloride [Moles/Vol]103 mmol/L98 - 107 mmol/LMercy [employer] Work Phone: cO2 [Moles/Vol]26 mmol/L20 - 31 mmol/LMercy [employer] Work Phone: creatinine [Mass/Vol]1.38 mg/dLHigh0.50 - 0.90 mg/dL [employer] Phone: GFR Pllnnitn39 mL/minLow>60[facility] [employer] Work Phone: GFR Non- Rxidbymc21 mL/minLow>60Mer [employer] Work Phone: GFR/1.73 sq M.predicted MDRD (S/P/Bld) [Vol rate/Area] [facility] HospitalShopWiki Phone: comment on above:Average GFR for 70 or more years old: 75 mL/min/1.73sq m Chronic Kidney Disease: <60 mL/min/1.73sq m Kidney failure: <15 mL/min/1.73sq m eGFR calculated using average adult body mass. Additional eGFR calculator available at: http://www.[employer].Dental Kidz/multiple_crcl_2012.htm GFR/1.73 sq M.predicted MDRD (S/P/Bld) [Vol rate/Area]NOT REPORTEDShelby Memorial HospitalPenstar Technologies Phone: Glucose [Mass/Vol]131 mg/eTLyke49 - 99 mg/dLShelby Memorial HospitalPenstar Technologies Phone: Interpretation and review of laboratory results AbnormalShelby Memorial HospitalPenstar Technologies Phone: potassium [Moles/Vol]5.0 mmol/L3.7 - 5.3 mmol/LMercy [employer] Work Phone: sodium [Moles/Vol]135 mmol/L135 - 144 mmol/LMuk healthcarey BuildingIQ Phone: Urea nitrogen (BldV) [Mass/Vol]16 mg/dL8 - 23 mg/dL [facility] Phone: Urea nitrogen/Creatinine (Bld) [Mass ratio]12[facility]Pen[facility] Phone: [facility] Phone: basic Metabolic Panel w/ Reflex to MGOrdered By: Isaias Lowry on [id number] gap [Moles/Vol]6 mmol/LLow9 - 17 mmol/LMuk healthcarey [employer] Phone: calcium [Mass/Vol]8.9 mg/dL8.6 - 10.4 mg/dLShelby Memorial HospitalPenstar Technologies Phone: chloride [Moles/Vol]102 mmol/L98 - 107 mmol/LMProNoxisy [employer] Work Phone: cO2 [Moles/Vol]28 mmol/L20 - 31 mmol/LMGonway Phone: creatinine [Mass/Vol]1.45 mg/dLHigh0.50 - 0.90 mg/dL [facility] Phone: GFR Iahqaxpq22 mL/minLow>60[facility]Pen[facility] Phone: GFR Non- Suimmxaf48 mL/minLow>60[facility] Phone: GFR/1.73 sq M.predicted MDRD (S/P/Bld) [Vol rate/Area] [facility]Shop[facility] Phone: comment on above:Average GFR for 70 or more years old: 75 mL/min/1.73sq m Chronic Kidney Disease: <60 mL/min/1.73sq m Kidney failure: <15 mL/min/1.73sq m eGFR calculated using average adult body mass. Additional eGFR calculator available at: http://www.Distra/multiple_crcl_2012.htm GFR/1.73 sq M.predicted MDRD (S/P/Bld) [Vol rate/Area]NOT REPORTEDMercy Health Lorain Hospital BuildingIQ Phone: Glucose [Mass/Vol]129 mg/lAVufu33 - 99 mg/dLShelby Memorial HospitalPenstar Technologies Phone: Interpretation and review of laboratory results AbnormalShelby Memorial HospitalPenstar Technologies Phone: potassium [Moles/Vol]6.1 mmol/LCritically high3.7 - 5.3 mmol/LMpromedica toledo hospital Building[employer] Phone: sodium [Moles/Vol]136 mmol/L135 - 144 mmol/LMpromedica toledo hospital [employer] Phone: Urea nitrogen (BldV) [Mass/Vol]17 mg/dL8 - 23 mg/dL [facility] [employer] Phone: Urea nitrogen/Creatinine (Bld) [Mass ratio]12[facility] HospitalPen[facility] Phone: [facility] Phone: basic Metabolic Profon 01-09-2021(cont.)NormalUniversity Hospitals Geauga Medical CenterComment on above:Result Comment: Average GFR for 70 or more years old: 75 mL/min/1.73sq m Chronic Kidney Disease: <60 mL/min/1.73sq m Kidney failure: <15 mL/min/1.73sq m eGFR calculated using average adult body mass. Additional eGFR calculator available at: http://www.[employer].Dental Kidz/multiple_crcl_2012.htmPerformed By: #### CDP, BMPX #### [facility] [address] [place] [address] Developmental Therapist: Darryl Granger MDAnion gap [Moles/Vol]6 mmol/LLow9-17University Hospitals Geauga Medical CenterComment on above:Performed By: #### CDP, BMPX #### [facility] [address] [place] [address] Developmental Therapist: Darryl Granger MDBUN/CRE Trmuc79Thxcpx4-63Kse[facility] Comment on above:Performed By: #### CDP, BMPX #### [facility] [address] [place] [id number] Developmental Therapist: FRANKIE Parkalcium [Mass/Vol]8.3 mg/dLLow8.6-10.4University Hospitals Geauga Medical CenterComment on above:Performed By: #### CDP, BMPX #### [facility] [address] [place] [address] Developmental Therapist: FRANKIE Parkhloride [Moles/Vol]103 mmol/XZsqzeq50-803VkmddUniversity Hospitals Geauga Medical CenterComment on above:Performed By: #### CDP, BMPX #### [facility] [address] [place] [address] Developmental Therapist: Darryl Granger MDCO2 [Moles/Vol]26 mmol/ZOdfdnf18-15CpcutUniversity Hospitals Geauga Medical CenterComment on above:Performed By: #### CDP, BMPX #### [facility] [address] [place] [address] Developmental Therapist: FRANKIE Parkreatinine [Mass/Vol]1.38 mg/dLHigh0.50-0.90[facility] HospitalComment on above:Performed By: #### CDP, BMPX #### [facility] [address] [place] [id number] Developmental Therapist: Darryl Granger MDGFR, Amer46 mL/minLow>60[facility] HospitalComment on above:Performed By: #### CDP, BMPX #### [facility] [address] [place] [address] Developmental Therapist: Darryl Granger MDGFR,non Amer38 mL/minLow>60[facility] HospitalComment on above:Performed By: #### CDP, BMPX #### [facility] [address] [place] [address] Developmental Therapist: Darryl Granger MDGlucose [Mass/Vol]131 mg/vDMkke07-22Ysrul Alburgh HospitalComment on above:Performed By: #### CDP, BMPX #### [facility] [address] [place] [id number] Developmental Therapist: ABDIEL Parkotassium [Moles/Vol]5.0 mmol/LNormal3.7-5.3MTogus VA Medical Center HospitalComment on above:Performed By: #### CDP, BMPX #### [facility] [address] [place] [phone] Developmental Therapist: Darryl Granger MDSodium [Moles/Vol]135 mmol/MRcxylz372-226Xtnja Willard HospitalComment on above:Performed By: #### CDP, BMPX #### [facility] [address] [place] [phone] Developmental Therapist: Darryl Granger MDUrea nitrogen [Mass/Vol]16 mg/dLNormal8-23[facility] HospitalComment on above:Performed By: #### CDP, BMPX #### [facility] [address] [phone] Developmental Therapist: JANICE Parktaging:NOT REPORTEDNormalUniversity Hospitals Geauga Medical Center Comment on above:Performed By: #### CDP, BMPX #### [facility] [address] [place] [address] Developmental Therapist: Darryl Granger [facility] auto differentialOrdered By: Isaias Lowry on [phone] Eos #0.00[facility]Pen[facility] Technologies Phone: absolute Immature GranulocyteNOT REPORTEDShelby Memorial HospitalPenstar Technologies Phone: absolute Lymph #1.30[facility]Pen[facility] Phone: absolute [place] #0.70[facility]Pen[facility] Phone: basophils (Bld) [#/Vol]0.00 10*3/uLShelby Memorial HospitalPenstar Technologies Phone: basophils/100 WBC (Bld)0 %0 - 2 %[employer] Ink Phone: differential TypeYESMercShopWiki Phone: eosinophils/100 WBC (Bld)0 %0 - 5 %[employer] Phone: Hematocrit (Bld) [Volume fraction]28.6 %Low36 - 46 % [employer] Phone: Hemoglobin.gastrointestinal spec 1 Ql (Stl)9.4 g/dLLow 12.0 - 16.0 g/dLShelby Memorial HospitalPenstar Technologies Phone: Immature GranulocytesNOT REPORTED0 %[employer] Phone: Interpretation and review of laboratory results AbnormalShelby Memorial HospitalPenstar Technologies Phone: lymphocytes/100 WBC (Bld)14 %Low15 - 40 %[employer] Phone: MCH (RBC) [Entitic mass]27.7 pg26 - 34 pgE Ink Phone: MCHC (RBC) [Mass/Vol]32.8 g/dL31 - 37 g/dLShelby Memorial HospitalBrainBot Work Phone: MCV (RBC) [Entitic vol]84.4 fL80 - 100 fLShelby Memorial HospitalPenstar Technologies Phone: Monocytes/100 WBC (Bld)7 %4 - 8 %[employer] Phone: NRBC AutomatedNOT REPORTEDper 100 WBCShelby Memorial HospitalPenstar Technologies Phone: Slatelet distribution width (Bld) [Ratio]15.2 %12.1 - 15.2 %[employer] In[employer] Phone: Zlatelet EstimateNOT REPORTEDShelby Memorial HospitalPenstar Technologies Phone: Platelet mean volume (Bld) [Entitic vol]NOT REPORTED 6.0 - 12.0 fLShelby Memorial HospitalPenstar Technologies Phone: Platelets (Bld) [#/Vol]178 10*3/[employer] Work Phone: [phone] (Bld) [#/Vol]3.39 10*6/uLLow4.0 - 5.2 m/uLE Ink Phone: RBC (Bld) [#/Vol]NOT REPORTEDShelby Memorial HospitalPenstar Technologies Phone: Segmented neutrophils/100 WBC (Bld)79 %High47 - 75 % [employer] Phone: [phone] Absolute7.80HighShelby Memorial HospitalPenstar Technologies Phone: [phone] (Bld) [#/Vol]9.8 10*3/uLE Ink Phone: [phone] (Bld) [#/Vol]NOT REPORTEDShelby Memorial HospitalPenstar Technologies Phone: [facility] HospitalBrainBot Work Phone: CBC with Diffon [phone]. Basophil0.00 k/uLNormal 0.0-0.2MWayne HealthCare Main CampusComment on above:Performed By: #### CDP, BMPX #### [facility] [address] [phone] Developmental Therapist: [place] Park.Neutrophil (Seg)7.80 k/uLHigh2.5-7.0University Hospitals Geauga Medical CenterComment on above:Performed By: #### CDP, BMPX #### [facility] [address] [place] [address] Developmental Therapist: James Park PerformedYESProtestant Deaconess Hospital Comment on above:Performed By: #### CDP, BMPX #### [facility] [address] [place] [address] Developmental Therapist: Darryl Granger MDBasophils/100 WBC (Bld)0 %Normal0-2MWayne HealthCare Main CampusComment on above:Performed By: #### ESA, BMPX #### [facility] [address] [place] [address] Developmental Therapist: Darryl Granger MDEosinophils (Bld) [#/Vol]0.00 10*3/uLNormal0.0-0.4 [facility] Geauga Medical CenterComment on above:Performed By: #### CDP, BMPX #### [facility] [address] [place] [address] Developmental Therapist: LISE Parkosinophils/100 WBC (Bld)0 %Normal0-5[facility] Hospit[facility] Geauga Medical CenterComment on above:Performed By: #### CDP, BMPX #### [facility] [address] [place] [phone] Developmental Therapist: Darryl Granger MDErythrocyte distribution width (RBC) [Ratio]15.2 % Gglfrh78.1-15.2Mercy Alburgh HospitalComment on above:Performed By: #### CDP, BMPX #### [facility] [address] [place] [phone] Developmental Therapist: Darryl Granger MDHematocrit (Bld) [Volume fraction]28.6 %Jgy74-79 [facility] on above:Performed By: #### CDP, BMPX #### [facility] [address] [place] [phone] Developmental Therapist: Darryl Granger MDHemoglobin (Bld) [Mass/Vol]9.4 g/dLLow12.0-16.0 [facility] on above:Performed By: #### CDP, BMPX #### [facility] [address] [place] [address] Developmental Therapist: Darryl Granger MDLymphocytes (Bld) [#/Vol]1.30 10*3/uLNormal1.0-4.8 [facility] on above:Performed By: #### CDP, BMPX #### [facility] [address] [place] [phone] Developmental Therapist: Darryl Granger MDLymphocytes/100 WBC (Bld)14 %Sez21-55WnmsaGenesis Hospital on above:Performed By: #### CDP, BMPX #### [facility] [address] [place] [address] Developmental Therapist: KALYAN ParkCH (RBC) [Entitic mass]27.7 umZlgkhx64-54LokhnUniversity Hospitals Geauga Medical CenterComkalkaska memorial health center on above:Performed By: #### CDP, BMPX #### [facility] [address] [place] [phone] Developmental Therapist: KALYAN ParkCHC (RBC) [Mass/Vol]32.8 g/fTJvalqf01-75YgjmmUniversity Hospitals Geauga Medical CenterComment on above:Performed By: #### CDP, BMPX #### [facility] [address], [place] [phone] (924) Developmental Therapist: KALYAN ParkCV (RBC) [Entitic vol]84.4 qGWvcuat64-334CrtnnUniversity Hospitals Geauga Medical CenterComkalkaska memorial health center on above:Performed By: #### CDP, BMPX #### [facility] [address], [place] [phone] (615) Developmental Therapist: KALYAN Parkonocytes (Bld) [#/Vol]0.70 10*3/uLNormal0.0-1.0 [facility] on above:Performed By: #### CDP, BMPX #### [facility] [address] [place] [address] Developmental Therapist: KALYAN Parkonocytes/100 WBC (Bld)7 %Normal4-8[facility] Hospitals Geauga Medical CenterComkalkaska memorial health center on above:Performed By: #### CDP, BMPX #### [facility] [address] [place] [address] Developmental Therapist: Alexandria Parkophil (Seg)79 %Xirr02-13SbjtjUniversity Hospitals Geauga Medical CenterComment on above:Performed By: #### CDP, BMPX #### [facility] [address] [place] [address] Developmental Therapist: Natacha Parktelets (Bld) [#/Vol]178 10*3/bTPrmvns855-280 [facility] Geaug[facility] Medical CenterComkalkaska memorial health center on above:Performed By: #### CDP, BMPX #### [facility] [address] [place] [address] Developmental Therapist: EN ParkBC (Bld) [#/Vol]3.39 10*6/uLLow4.0-5.2MWayne HealthCare Main CampusComkalkaska memorial health center on above:Performed By: #### CDP, BMPX #### [facility] [address] [place] [address] Developmental Therapist: ANDER Park (Bld) [#/Vol]9.8 10*3/uLNormal3.5-11.0[facility] Geauga Medical CenterComment on above:Performed By: #### CDP, BMPX #### [facility] [address] [place] [address] Developmental Therapist: [place] Park.Imm.GranulocyteNOT REPORTEDNormal0.00-0.30 [facility] Geaug[facility] Medical CenterComment on above:Performed By: #### CDP, BMPX #### [facility] [address] [place] [address] Developmental Therapist: Tami Park GranulocyteNOT FEHDIFTZYveito4Hxvjo Willard HospitalComment on above:Performed By: #### CDP, BMPX #### [facility] [address] [place] [address] Developmental Therapist: KALYAN ParkPVNOT REPORTEDNormal6.0-12.0[facility] Geaug[facility] Medical CenterComment on above:Performed By: #### CDP, BMPX #### [facility] [address] [place] [address] Developmental Therapist: EUGENIA Park AutomatedNOT REPORTEDNormalUniversity Hospitals Geauga Medical CenterComment on above:Performed By: #### CDP, BMPX #### [facility] [address] [place] [address] Developmental Therapist: Tee Parklet EstimateNOT REPORTEDNormalUniversity Hospitals Geauga Medical CenterComment on above:Performed By: #### CDP, BMPX #### [facility] [address] [place] [address] Developmental Therapist: YAYA Park morphology finding Nom (Bld)NOT REPORTEDNormal [facility] Geauga Medical CenterComment on above:Performed By: #### CDP, BMPX #### [facility] [address] [place] [address] Developmental Therapist: ANDER Park MorphologyNOT REPORTEDNormalGenesis Hospital on above:Performed By: #### CDP, BMPX #### [facility] [address] [place] [address] Developmental Therapist: FRANKIE ParkOVID-19, RapidOrdered By: Isaias Lowry on [id number]-CoV-2 (COVID-19) RNA MARTIN+probe Ql (Unsp spec)Not detectedNot DetectedMercy Health Lorain Hospital BuildingIQ Phone: comment on above: Rapid NAAT: The [...] management decisions. Fact sheet for Healthcare Providers: https://www.fda.gov/media/651668/download Fact sheet for Patients: https://www.fda.gov/media/873076/download Methodology: Isothermal Nucleic Acid Amplification Specimen Description.NASOPHARYNGEAL SWABMercy Health Lorain Hospital [employer] Work Phone: [facility] HospitalB[facility] Work Phone: eKG 12 LeadOrdered By: Jaclyn Calabrese on 01-09-2021 Atrial Pwea24VQLDabmd [employer] Work Phone: p Lqir73awltqruQsmky [employer] Work Phone: p-R Pfaazlqj501 msMpromedica toledo hospital [employer] Work Phone: Q-T Vasfrgsu836 [facility] [employer] Work Phone: QRS Erhflqez89 [facility] [employer] Work Phone: QTc Calculation (Bazett)481 [facility] [employer] Work Phone: r Utup48wlmpejuIaiey [employer] Work Phone: T Lmim17kiqokzqXrtor [employer] Work Phone: Ventricular Deno92GLNQsijo [employer] Work Phone: Normal sinus rhythm Normal ECG [facility] HospitalShopWiki Phone: eSamaria rodriguez Incoming Ekg Results From [email or web address] [place] - 01/09/2021 6:35 AM EDT Normal sinus rhythm Normal ECGMercy Health Lorain Hospital BuildingIQ Phone: [facility] [employer] Phone: [place] LESS THAN 1 HOURon [phone] LESS THAN 1 HOUR Radiology exam is complete. No Radiologist dictation. Please follow up with ordering provider. Final resultNormalUC Medical Center LESS THAN 1 HOUROrdered By: Eugene Michelle on [phone] exam is complete. No Radiologist dictation. Please follow up with ordering provider.[employer] Phone: [facility]Pen[facility] Phone: Microscopic UrinalysisOrdered By: Isaias Lowry on 01-09-2021-E Ink Phone: amorphous, UANOT REPORTEDNoneMetrinity health system twin city [facility] center [employer] Work Phone: bacteria, UA1+AbnormalNonFort Hamilton Hospital [employer] Work Phone: casts UA2 TO 5 HYALINE/LPFMercy Health Work Phone: casts UA2 TO 5 FINE GRANULAR/LPFMercy Health Work Phone: crystals, UANOT REPORTEDNone /HPFMercy Health Work Phone: Fpithelial Cells UA0 TO 2/HPFMercy Health Work Phone: Interpretation and review of laboratory results AbnormalMercy Health Work Phone: Mucus, UARAREAbnormalNoneMey Health Work Phone: Other Observations UANOT REPORTEDAbnormalNOT REQ.[facility] Work Phone: FBC, UA5 TO 10[facility] Work Phone: Ienal Epithelial, UA2 TO 50 /HPFMercy Health Work Phone: Trichomonas, UANOT REPORTEDNoneMercy Health Work Phone: WBC, UA5 TO 100 /HPFMer Health Work Phone: Yeast, UANOT REPORTEDNoneMey Health Work Phone: [facility] Work Phone: [phone] [id number]-CoV-2 (COVID-19) RNA MARTIN+probe Ql (Unsp spec)Not detectedNormalKettering Health Main CampusComment on above:Result Comment: Rapid NAAT: The specimen [...] management decisions. Fact sheet for Healthcare Providers: https://www.fda.gov/media/065274/download Fact sheet for Patients: https://www.fda.gov/media/992100/download Methodology: Isothermal Nucleic Acid AmplificationPerformed By: #### COVRB #### [facility] [address] [place] [address] Developmental Therapist: AUGUSTUS Park w/Reflex Cultureon [id number], SemiQt,UrNegativeNormalNEGUniversity Hospitals Geauga Medical CenterComment on above:Performed By: #### CDP, BMPX #### [facility] [address] [place] [address] Developmental Therapist: Demetrius Park, Urine2+AbnormalMercy Health Lorain Hospital Comment on above:Performed By: #### CDP, BMPX #### [facility] [address] [place] [address] Developmental Therapist: Kellen Park ()HAZYAbnormalCLESCCI Hospital [facility]ima Comment on above:Performed By: #### CDP, BMPX #### [facility] [address] [place] [address] Developmental Therapist: Alo Park (YELLOWTrumbull Memorial Hospital Comment on above:Performed By: #### CDP, BMPX #### [facility] [address] [place] [address] Developmental Therapist: Lillie ParkmentProtestant Deaconess HospitalComment on above:Performed By: #### CDP, BMPX #### [facility] [address] [place] [address] Developmental Therapist: Marucs Park Ql (U)NegativeNormalMercy Health Lorain HospitalComment on above:Performed By: #### CDP, BMPX #### [facility] [address], [place] [id number] Developmental Therapist: Darryl Granger MDKetones Ql (U)NegativeNormalNEGUniversity Hospitals Geauga Medical CenterComment on above:Performed By: #### CDP, BMPX #### [facility] [address] [place] [address] Developmental Therapist: Darryl Granger MDLeukocyte esterase Test strip Ql (U)NegativeNormal NEGUniversity Hospitals Geauga Medical CenterComment on above:Performed By: #### CDP, BMPX #### [facility] [address] [place] [address] Developmental Therapist: Jorge Parktrite,UrNegativeUniversity Hospitals Ahuja Medical Center Comment on above:Performed By: #### CDP, BMPX #### [facility] [address] [place] [address] Developmental Therapist: ABDIEL Park,Ur5.4Ocdxck7.0-8.0[facility]aug[facility] Medical CenterComment on above:Performed By: #### CDP, BMPX #### [facility] [address] [place] [address] Developmental Therapist: Gopal Park Ql (U)1+AbnormalNEGUniversity Hospitals Geauga Medical Center Comment on above:Performed By: #### CDP, BMPX #### [facility] [address] [place] [address] Developmental Therapist: JANICE Parkpec. [place],Ur1.449Gdqgdx5.005-1.030[facility] Medical CenterComment on above:Performed By: #### CDP, BMPX #### [facility] [address] [place] [address] Developmental Therapist: Papa Parkbilinogen,UrNormalNormalNORMUniversity Hospitals Geauga Medical CenterComment on above:Performed By: #### CDP, BMPX #### [facility] [address] [place] [address] Developmental Therapist: Darryl Granger MDUrinalysis Reflex to CultureOrdered By: Isaias Lowry on [phone] UrineNegativeNEGATIVEMercy Health Work Phone: color, UAYELLOWYELLOWMercy Health Work Phone: Glucose, UrNegativeNEGATIVEMercy Health [facility] Health Work Phone: Interpretation and review of laboratory results AbnormalMer Health Work Phone: Ketones Ql (U)NegativeNEGATIVEMercy Health [facility] Health Work Phone: leukocyte esterase Test strip Ql (U)NegativeNEGATIVE [facility] Work Phone: Nitrite, UrineNegativeNEGATIVEMercy Health [facility] Hospital Health Work Phone: zH, UA5.0[facility] Work Phone: Brotein, UA1+AbnormalNEGATIVEMer Health Work Phone: Tpecific [place], UA1.025[facility] Work Phone: Turbidity UAHAZYAbnormalCLEARMercy Health Work Phone: Urinalysis CommentsMer Health Work Phone: Urine Hgb2+AbnormalNEGATIVEMercy Health [facility] Hospital Health Work Phone: Urobilinogen, UrineNormalNormalMer Health Work Phone: [facility] Work Phone: Urinalysis,Microon 01-09-2021-----Pro[facility] Deaconess HospitalComment on above:Performed By: #### HH #### [facility] [address] [place] [address] Developmental Therapist: Darryl Granger MDBacteria1+AbnormalNONEMeAultman Orrville Hospital Comment on above:Performed By: #### HH #### [facility] [address] [place] [address] Developmental Therapist: FRANKIE Parkasts2 TO 5NoUniversity Hospitals Elyria Medical CenterComment on above:Result Comment: HYALINE 2 TO 5 FINE GRANULARPerformed By: #### HH #### [facility] [address] [place] [address] Developmental Therapist: Darryl Granger MDEpithelial cells LM Ql (Urine sed)0 TO 2Normal [facility] Medical CenterComment on above:Performed By: #### HH #### [facility] [address] [place] [address] Developmental Therapist: Darryl Granger MDEpithelial, Renal2 TO 8Krfiab0Whzey78 Boyd StreetComment on above:Performed By: #### HH #### [facility] [address] [place] [address] Developmental Therapist: Ashley Park StrandsRAREAbnormPremier Health Miami Valley Hospital SouthComment on above:Performed By: #### HH #### [facility] [address], [place] [id number] Developmental Therapist: Darryl Granger MDUrine RBC's5 TO 16Winvpt3-4NpjlsWayne HealthCare Main Campus Comment on above:Performed By: #### HH #### [facility] [address] [place] [address] Developmental Therapist: Darryl Granger MDUrine WBC's5 TO [address]ybr[address] Comment on above:Performed By: #### HH #### [facility] [address], [place] [id number] Developmental Therapist: Shila Park sediment LM Ql (Urine sed)NOT REPORTED NormalOhio State Health SystemComment on above:Performed By: #### HH #### [facility] [address], [place] [id number] Developmental Therapist: Bekah Park LM Nom (Urine sed)NOT REPORTEDNormalNONE [facility] Medical CenterComment on above:Performed By: #### HH #### [facility] [address], [place] [id number] Developmental Therapist: Sang Park ObservationsNOT REPORTEDNormalNREQUniversity Hospitals Geauga Medical CenterComment on above:Performed By: #### HH #### [facility] [address] [place] [id number] Developmental Therapist: Brittny ParkonasBERTA REPORTEDNormalNONUniversity Hospitals Geneva Medical CenterComment on above:Performed By: #### HH #### [facility] [address] [place] [address] Developmental Therapist: Braden ParkastBERTA REPORTEDNormalNONUniversity Hospitals Geneva Medical Center Comment on above:Performed By: #### HH #### [facility] [address] [place] [address] Developmental Therapist: John Park [phone] Coag (Bld) [Time]26.9 s Xmtkqf69.9-33.8University Hospitals Geauga Medical CenterComment on above:Result Comment: IV Heparin Therapy Range: 62.0-94.0Performed By: #### CDP, BMPX #### [facility] [address] [place] [address] Developmental Therapist: MELISSA ParkTOrdered By: Jaclyn Calabrese on 01-08-2021 aPTT Coag (Bld) [Time]26.9 [employer] Work Phone: comment on above: IV Heparin Therapy Range: 62.0-94.0 Basic Metab w/rfx MGon 01-08-2021(cont.)NormalUniversity Hospitals Geauga Medical CenterComment on above:Result Comment: Average GFR for 70 or more years old: 75 mL/min/1.73sq m Chronic Kidney Disease: <60 mL/min/1.73sq m Kidney failure: <15 mL/min/1.73sq m eGFR calculated using average adult body mass. Additional eGFR calculator available at: http://www.[employer].Dental Kidz/multiple_crcl_2012.htmPerformed By: #### CDP, BMPX #### [facility] [address] [place] [address] Developmental Therapist: Darryl Granger MDBUN/CRE Qzsxb3Avtssx8-11CnwiiUniversity Hospitals Geauga Medical Center Comment on above:Performed By: #### CDP, BMPX #### [facility] [address] [place] [address] Developmental Therapist: Darryl Granger MDGFR, Amer40 mL/minLow>60[facility]als Geauga Medical CenterComment on above:Performed By: #### CDP, BMPX #### [facility] [address], [place] [phone] Developmental Therapist: Darryl Granger MDGFR,non Amer33 mL/minLow>60[facility] Geauga Medical CenterComment on above:Performed By: #### CDP, BMPX #### [facility] [address] [place] [address] Developmental Therapist: Darrly Granger MDUrea nitrogen [Mass/Vol]14 mg/dLNormal8-23University Hospitals Geauga Medical CenterComment on above:Performed By: #### CDP, BMPX #### [facility] [address], [place] [id number] Developmental Therapist: JANICE Parktaging:NOT REPORTEDNoUniversity Hospitals Elyria Medical Center Comment on above:Performed By: #### CDP, BMPX #### [facility] [address], [place] [id number] Developmental Therapist: Darryl Granger MDBasic Metab w/rfx MGOrdered By: Jaclyn Calabrese on 99-13-8977Atutf gap [Moles/Vol]13 mmol/LNormal9-17[facility] [employer] Work Phone: comment on above:Performed By: #### CDP, BMPX #### [facility] [address] [place] [address] Developmental Therapist: FRANKIE Parkalcium [Mass/Vol]9.3 mg/dLNormal8.6-10.4[facility] [employer] Work Phone: comment on above:Performed By: #### CDP, BMPX #### [facility] [address] [place] [address] Developmental Therapist: FRANKIE Parkhloride [Moles/Vol]100 mmol/FUgkmnq04-805[employer] Work Phone: comment on above:Performed By: #### CDP, BMPX #### [facility] [address] [place] [address] Developmental Therapist: FRANKIE ParkO2 [Moles/Vol]23 mmol/TKueqeb60-27[employer] Work Phone: comment on above:Performed By: #### CDP, BMPX #### [facility] [address] [place] [address] Developmental Therapist: FRANKIE Parkreatinine [Mass/Vol]1.54 mg/dLHigh0.50-0.90[facility] [employer] Work Phone: comment on above:Performed By: #### CDP, BMPX #### [facility] [address] [place] [address] Developmental Therapist: Darryl Granger MDGlucose [Mass/Vol]150 mg/cHYwyq11-79Ptotk [employer] Work Phone: comment on above:Performed By: #### CDP, BMPX #### [facility] [address] [place] [address] Developmental Therapist: ABDIEL Parkotassium [Moles/Vol]3.9 mmol/LNormal3.7-5.3Mpromedica toledo hospital [employer] Work Phone: comment on above:Performed By: #### CDP, BMPX #### [facility] [address] [place] [address] Developmental Therapist: Darryl Granger MDSodium [Moles/Vol]136 mmol/HDvoxgr499-209Ndxtt [employer] Work Phone: comment on above:Performed By: #### CDP, BMPX #### [facility] [address] [place] [address] Developmental Therapist: Delphine Parkb[facility] Metabolic Panel w/ Reflex to MGOrdered By: Jaclyn Calabrese on 47-79-6517NXB Qipgnuxp68 mL/minLow>60[facility] HospitalB[facility] Work Phone: GFR Non- Bslobiqy25 mL/minLow>60[facility] HospitalB[facility] Work Phone: GFR/1.73 sq M.predicted MDRD (S/P/Bld) [Vol rate/Area] [facility] [employer] Phone: comment on above:Average GFR for 70 or more years old: 75 mL/min/1.73sq m Chronic Kidney Disease: <60 mL/min/1.73sq m Kidney failure: <15 mL/min/1.73sq m eGFR calculated using average adult body mass. Additional eGFR calculator available at: http://www.[employer].Dental Kidz/multiple_crcl_2012.htm GFR/1.73 sq M.predicted MDRD (S/P/Bld) [Vol rate/Area]NOT REPORTEDShelby Memorial HospitalBrainBot Work Phone: Interpretation and review of laboratory results AbnormalShelby Memorial HospitalBrainBot Work Phone: Urea nitrogen (BldV) [Mass/Vol]14 mg/dL8 - 23 mg/dL [facility] HospitalShopWiki Phone: Urea nitrogen/Creatinine (Bld) [Mass ratio]9[facility] HospitalPen[facility] Technologies Phone: [facility] Phone: cBC Auto DifferentialOrdered By: Jaclyn Calabrese on 76-65-9485Eqyazyor Eos #0.10[facility] HospitalPen[facility] Phone: absolute Immature GranulocyteNOT REPORTEDShelby Memorial HospitalPenstar Technologies Phone: absolute Lymph #3.90[facility] HospitalPen[facility] Phone: absolute [place] #0.50[facility] HospitalPen[facility] Phone: basophils (Bld) [#/Vol]0.00 10*3/uLMerPenstar Technologies Phone: basophils/100 WBC (Bld)0 %0 - 2 %[employer] Phone: differential TypeYESMerc BuildingIQ Phone: eosinophils/100 WBC (Bld)1 %0 - 5 %[employer] Phone: Hematocrit (Bld) [Volume fraction]34.7 %Low36 - 46 % [facility] HospitalShop[facility] Phone: Hemoglobin.gastrointestinal spec 1 Ql (Stl)11.5 g/dL Low12.0 - 16.0 g/dLShelby Memorial HospitalPenstar Technologies Phone: Immature GranulocytesNOT REPORTED0 %[employer] Phone: Interpretation and review of laboratory results AbnormalShelby Memorial HospitalPenstar Technologies Phone: lymphocytes/100 WBC (Bld)41 %High15 - 40 %[employer] Phone: MCH (RBC) [Entitic mass]28.2 pg26 - 34 pgMerBrainBot Work Phone: MCHC (RBC) [Mass/Vol]33.3 g/dL31 - 37 g/dLShelby Memorial HospitalBrainBot Work Phone: MCV (RBC) [Entitic vol]84.8 fL80 - 100 fLShelby Memorial HospitalPenstar Technologies Phone: Monocytes/100 WBC (Bld)5 %4 - 8 %[employer] Phone: NRBC AutomatedNOT REPORTEDper 100 WBCShelby Memorial HospitalPenstar Technologies Phone: platelet distribution width (Bld) [Ratio]15.9 %High 12.1 - 15.2 %[employer] Phone: platelet EstimateNOT REPORTEDShelby Memorial HospitalPenstar Technologies Phone: Platelet mean volume (Bld) [Entitic vol]NOT REPORTED 6.0 - 12.0 fLShelby Memorial HospitalPenstar Technologies Phone: Platelets (Bld) [#/Vol]215 10*3/uLInkerwang Work Phone: RBC (Bld) [#/Vol]4.09 10*6/uL4.0 - 5.2 m/ExecShelby Memorial HospitalPenstar Technologies Phone: RBC (Bld) [#/Vol]NOT REPORTEDShelby Memorial HospitalPenstar Technologies Phone: Segmented neutrophils/100 WBC (Bld)53 %47 - 75 %[employer] Phone: Segs Absolute5.10[facility] HospitalPen[facility] Technologies Phone: [phone] (Bld) [#/Vol]9.6 10*3/uLE Ink Phone: WBC (Bld) [#/Vol]NOT REPORTEDShelby Memorial HospitalPenstar Technologies Phone: [facility] HospitalBrainBot Work Phone: CBC with Diffon 34-77-1942Fnp. Basophil0.00 k/uLNormal 0.0-0.2MWayne HealthCare Main CampusComment on above:Performed By: #### CDP, BMPX #### [facility] [address] [place] [phone] Developmental Therapist: [place] Park.Neutrophil (Seg)5.10 k/uLNormal2.5-7.0University Hospitals Geauga Medical CenterComment on above:Performed By: #### CDP, BMPX #### [facility] [address] [place] [address] Developmental Therapist: James Park PerformedYESProtestant Deaconess Hospital Comment on above:Performed By: #### CDP, BMPX #### [facility] [address] [place] [address] Developmental Therapist: Darryl Granger MDBasophils/100 WBC (Bld)0 %Normal0-2MWayne HealthCare Main CampusComment on above:Performed By: #### ESA, BMPX #### [facility] [address] [place] [address] Developmental Therapist: Darryl Granger MDEosinophils (Bld) [#/Vol]0.10 10*3/uLNormal0.0-0.4 [facility]a Medical CenterComment on above:Performed By: #### CDP, BMPX #### [facility] [address] [place] [address] Developmental Therapist: LISE Parkosinophils/100 WBC (Bld)1 %Normal0-5[facility]als Geauga Medical CenterComment on above:Performed By: #### CDP, BMPX #### [facility] [address] [place] [phone] Developmental Therapist: Darryl Granger MDErythrocyte distribution width (RBC) [Ratio]15.9 % High12.1-15.2MWayne HealthCare Main CampusComment on above:Performed By: #### CDP, BMPX #### [facility] [address] [place] [phone] Developmental Therapist: Darryl Granger MDHematocrit (Bld) [Volume fraction]34.7 %Vsu74-52 [facility] on above:Performed By: #### CDP, BMPX #### [facility] [address] [place] [phone] Developmental Therapist: Darryl Granger MDHemoglobin (Bld) [Mass/Vol]11.5 g/dLLow12.0-16.0 [facility] on above:Performed By: #### ESA, BMPX #### [facility] [address] [place] [phone] Developmental Therapist: Darryl Granger MDLymphocytes (Bld) [#/Vol]3.90 10*3/uLNormal1.0-4.8 [facility] on above:Performed By: #### ESA, BMPX #### [facility] [address] [place] [phone] Developmental Therapist: Constanza Parkmphocytes/100 WBC (Bld)41 %Qwwj39-37ZpcekGenesis Hospital on above:Performed By: #### ESA, BMPX #### [facility] [address] [place] [phone] Developmental Therapist: KALYAN ParkCH (RBC) [Entitic mass]28.2 zvDykbph02-31ZtmzbUniversity Hospitals Geauga Medical CenterComment on above:Performed By: #### CDP, BMPX #### [facility] [address] [place] [phone] Developmental Therapist: KALYAN ParkCHC (RBC) [Mass/Vol]33.3 g/dVBziwqq09-82IlozjUniversity Hospitals Geauga Medical CenterComment on above:Performed By: #### CDP, BMPX #### [facility] [address] [place], [place] [phone] (511) Developmental Therapist: KALYAN ParkCV (RBC) [Entitic vol]84.8 dXNhxoms94-530MthmwUniversity Hospitals Geauga Medical CenterComment on above:Performed By: #### CDP, BMPX #### [facility] [address] [place], [place] [phone] (304) Developmental Therapist: KALYAN Parkonocytes (Bld) [#/Vol]0.50 10*3/uLNormal0.0-1.0 [facility] Medical CenterComment on above:Performed By: #### CDP, BMPX #### [facility] [address] [place] [address] Developmental Therapist: KALYAN Parkonocytes/100 WBC (Bld)5 %Normal4-8[facility]auga Medical CenterComment on above:Performed By: #### CDP, BMPX #### [facility] [address] [place] [address] Developmental Therapist: Darryl Granger MDNeutrophil (Seg)53 %Rvugxq27-72CzvxkUniversity Hospitals Geauga Medical CenterComment on above:Performed By: #### CDP, BMPX #### [facility] [address] [place] [address] (508) Developmental Therapist: Natacha Parktelets (Bld) [#/Vol]215 10*3/xGAjtjet798-140 [facility] Medical CenterComment on above:Performed By: #### CDP, BMPX #### [facility] [address] [place] [address] (029) Developmental Therapist: EN ParkBC (Bld) [#/Vol]4.09 10*6/uLNormal4.0-5.2MWayne HealthCare Main CampusComment on above:Performed By: #### CDP, BMPX #### [facility] [address] [place] [address] Developmental Therapist: ANDER Park (Bld) [#/Vol]9.6 10*3/uLNormal3.5-11.0[facility] HospitalComment on above:Performed By: #### CDP, BMPX #### [facility] [address] [place] [address] Developmental Therapist: [place] Park.Imm.GranulocyteNOT REPORTEDNormal0.00-0.[address] [facility] HospitalComment on above:Performed By: #### CDP, BMPX #### [facility] [address] [place] [address] Developmental Therapist: Tami Park GranulocyteNOT FKUERGXFSvkuhh1Raypu Willard HospitalComment on above:Performed By: #### CDP, BMPX #### [facility] [address] [place] [address] Developmental Therapist: KALYAN ParkPVNOT REPORTEDNormal6.0-12.0[facility] HospitalComment on above:Performed By: #### CDP, BMPX #### [facility] [address] [place] [address] Developmental Therapist: EUGENIA Park AutomatedNOT REPORTEDNormalMercy Health St. [facility] HospitalComment on above:Performed By: #### CDP, BMPX #### [facility] [address] [place] [address] Developmental Therapist: Tee Parklet EstimateNOT REPORTEDNormalMercy Health St. [facility] HospitalComment on above:Performed By: #### CDP, BMPX #### [facility] [address] [place] [address] Developmental Therapist: YAYA Park morphology finding Nom (Bld)NOT REPORTEDNormal [facility] HospitalComment on above:Performed By: #### CDP, BMPX #### [facility] [address] [place] [phone] Developmental Therapist: SHERIF Park MorphologyNOT REPORTEDNoUniversity Hospitals Elyria Medical CenterComment on above:Performed By: #### CDP, BMPX #### [facility] [address] [place] [phone] Developmental Therapist: Sarahy Park Panel InformationOrdered By: Jaclyn Calabrese on 54-61-7670Xlfrt Health Work Phone: pton [phone] Coag (PPP) [Relative time]1.0 {INR} [facility] HospitalComment on above:Result Comment: Non-therapeutic Range: INR = 0.9-1.2 Therapeutic Range: Moderate Anticoagulant Intensity: INR = 2.0-3.0 High Anticoagulant Intensity: INR = 2.5-3.5Performed By: #### CDP, BMPX #### [facility] [address] [place] [phone] Developmental Therapist: RUSS Park Coag (PPP) [Time]12.6 zRxruef64.5-14.2MWayne HealthCare Main CampusComkalkaska memorial health center on above:Performed By: #### CDP, BMPX #### [facility] [address] [place] [phone] Developmental Therapist: Sebas Parkime-INROrdered By: Jaclyn Calabrese on 64-60-9195PLH Coag (Bld) [Relative time]1.0 {INR}[facility] Work Phone: comment on above: Non-therapeutic Range: INR = 0.9-1.2 Therapeutic Range: Moderate Anticoagulant Intensity: INR = 2.0-3.0 High Anticoagulant Intensity: INR = 2.5-3.5 PT Coag (PPP) [Time]12.6 [facility] [employer] Work Phone: XR CHEST PORTABLEon 47-79-6549ZP CHEST PORTABLEEXAM: XR CHEST PORTABLE HISTORY: Reason [...] Signed by: Ede Collazo DO 01/08/21 Final resultNoalUniversity Hospitals Geauga Medical CenterXR CHEST PORTABLEOrdered By: Jaclyn Calabrese on . Nonacute portable chest. 2. Chronic changes and findings of mild COPD.[employer] Phone: eXAM: XR CHEST PORTABLE HISTORY: Reason [...] stable calcified granuloma the mid left lung field.[employer] Phone: e, [facility] Incoming Radiant Results From [facility] - 01/08/2021 8:17 PM EDT EXAM: XR [...] Chronic changes and findings of mild COPD. [employer] Phone: [facility] HospitalPen[facility] Phone: XR HIP 2-3 VW W PELVIS RIGHTon 11-25-0940MO HIP 2-3 VW W PELVIS RIGHTEXAM: XR [...] by: Jorge L Benítez MD 01/08/21 Final resultNoUniversity Hospitals Elyria Medical CenterXR HIP 2-3 VW W PELVIS RIGHTOrdered By: Jaclyn Calabrese on 87-94-0922Yjylnjaygm intertrochanteric fracture of the proximal right femur.[employer] Phone: eXAM: XR HIP 2-3 VW W [...] joints are maintained. The pubic symphysis is maintained.[employer] Phone: eSamaria rodriguez Incoming Radiant Results From [employer] - 01/08/2021 7:47 PM EDT EXAM: XR [...] of the proximal right femur. [facility] [employer] Work Phone: [facility] [employer] Work Phone: Vital Signs Date TimeVital SignValuePerforming QtulgnrctHitzfoeb41-05-0393 10:48-0500Blood Pressure LocationChricardo HUY [phone]-Awjqd[address] [place] [address] 08-02-2023 10:48-0500Diastolic blood ukwywhvo72 mm[Hg]Ronreal SON [phone]-Wyukk[address] [place] [address] 08-02-2023 10:48-0500Heart rate82 /minChristop HUY [phone]-Nshkw[address] [place] [address] [place] 08-02-2023 10:48-7647ChX1% (BldA) [Mass fraction]98 %Jacobychrista SON [phone]-Zkpfw[address] [place] [address] [place] 08-02-2023 10:48-0500Systolic blood iucyugsl337 mm[Hg]Jaclyn HUY [phone]-Gmnsb[address] [place] [address] [place] 08-02-2023 10:40-0500Blood Pressure LocationChjuan carlosroger williams medical centerher SON [phone]-Ztykj[address] [place] [address] [place] 08-02-2023 10:40-0500Diastolic blood ihcnzhur93 mm[Hg]Jacobychrista SON [phone]-Lrdcp[address] [place] [address] [place] 08-02-2023 10:40-0500Heart rate82 /minChristop HUY [phone]-IrrxdMercy Health [facility] 08-02-2023 10:40-3979QyX4% (BldA) [Mass fraction]98 %Jaclyn SON [phone]-BbssfMercy Health [facility] Hospital 08-02-2023 10:40-0500Systolic blood nigusiir017 mm[Hg]Jaclyn SON [phone]-GugrkMercy Health [facility] Hospital 02-25-2023 11:40-0400Body .94 cmPamela Angelina Other [employer] Other 09-15-2023 11:40-0400Body mass index (BMI) [Ratio] 18.51 kg/h3Uaddxg Angelina Other [employer] Other 09-15-2023 11:40-0400Body pocdaommqdn45.9 [degF]Shannan Angelina Other [employer] Other 09-15-2023 11:40-0400Body eavume49.45 kgPajean Angelina Other [employer] Other 09-15-2023 11:40-0400Diastolic blood jyxmaccy67 mm[Hg] Shannan Angelina Other [employer] Other 09-15-2023 11:40-0400Respiratory rate18 /minPajean Alfaro Other [employer] Other 09-15-2023 11:40-1087YbM0% (BldA) [Mass fraction]98 % Shannan Alfaro Other [employer] Other 09-15-2023 11:40-0400Systolic blood wtlroscy682 mm[Hg] Shannan Angelina Other [facility] [employer] Other 08-15-2023 13:06-0400Blood Pressure Location Jaclyn SON [phone]-HkjxiMercy Health [facility] Hospital 01-25-2023 13:06-0400Diastolic blood pnbuxzan40 mm[Hg]Jaclyn SON [phone]-NkyulMercy Health [facility] Hospital 01-25-2023 13:06-0400Heart rate83 /minChristopher Bitbrains [phone]-QucykMercy Health [facility] Hospital 01-25-2023 13:06-0400Respiratory rate16 /minChristopher Bitbrains [phone]-CongoMercy Health Anderson Hospital 01-25-2023 13:06-4453AlE3% (BldA) [Mass fraction]97 %Jaclyn SON [phone]-ZczluMercy Health Anderson Hospital 01-25-2023 13:06-0400Systolic blood lnhphwbi366 mm[Hg]Jaclyn SON [phone]-JgmgzMercy Health [facility] Hospital 10-22-2022 15:50-0400Body hrevae671.94 Juanjo Alfaro Other [facility] [employer] Other 05-12-2023 15:50-0400Body mass index (BMI) [Ratio] 17.23 kg/x4LlcfmiShannan Alfaro Other [facility] [employer] Other 05-12-2023 15:50-0400Body temtfqbrvep47.5 [degF]Shannan Angelina Other [facility] [employer] Other 05-12-2023 15:50-0400Body iwwwxl82.37 kgPajean Alfaro Other [employer] Other 05-12-2023 15:50-0400Diastolic blood yivnmvhl15 mm[Hg] Shannan Alfaro Other [employer] Other 05-12-2023 15:50-0400Respiratory rate16 /minPajean Sawantmond Other [employer] Other 05-12-2023 15:50-9236UqM3% (BldA) [Mass fraction]94 % Shannan Alfaro Other [employer] Other 05-12-2023 15:50-0400Systolic blood pqpmgtyo167 mm[Hg] Shannan Alfaro Other [employer] Other 03-20-2023 14:06-0400Blood Pressure Location Jacobychrista HUY [phone]-AzuaiMercy Health [facility] Hospital 08-30-2022 14:06-0400Diastolic blood ypissuyd78 mm[Hg]Jaclyn SON [phone]-QvgvkMercy Health [facility] Hospital 08-30-2022 14:06-0400Heart rate71 /minChristopher BROWN [phone]-TnemmMercy Health [facility] Hospital 08-30-2022 14:06-0400Respiratory rate16 /minChristopher BROWN [phone]-MxgmbMercy Health [facility] Hospital 08-30-2022 14:06-4519DbZ9% (BldA) [Mass fraction]97 %Jaclyn HUY [phone]-HckncMercy Health [facility] Hospital 08-30-2022 14:06-0400Systolic blood pqicoaep551 mm[Hg]Jaclyn BROWN [phone]-ZyyncMercy Health [facility] Hospital 08-06-2022 20:24-0500Diastolic blood lnuwxxzb14 mm[Hg]Danie Lorna [facility]02-24-2023 20:24-0500Heart rate79 /minNoah Lorna [address] [place], [place] 2459302-24-2023 20:24-0500Mean blood mm[Hg]Danie Lorna [address] [place], [place] 6204702-24-2023 20:24-0500 Respiratory rate25 /minNoah Lorna [address] [place], [place] 6204702-24-2023 20:24-7822IqS0% (BldA) [Mass fraction]98 %Danie Lorna [address] [place], [place] 2459302-24-2023 20:24-0500 Systolic blood wcyozzpe074 mm[Hg]Danie Lorna [address] [place], [place] 6204702-24-2023 19:01-0500Body ndrjhduaere89.06 [degF]Danie Lorna [address] [place], [place] 2459302-24-2023 19:01-0500 Diastolic blood gmblavnv98 mm[Hg]Danie Lorna [address] [place], [place] 2459302-24-2023 19:01-0500Heart rate98 /minNoah Lorna [address] [place], [place] 6204702-24-2023 19:01-0500 Respiratory rate16 /minNoah Loran [address] [place], [place] 6204702-24-2023 19:01-1658RaP0% (BldA) [Mass fraction]99 %Danie Lorna [facility]02-24-2023 19:01-0500 Systolic blood opiypvit382 mm[Hg]Danie Lorna [facility]02-24-2023 19:00-0500 Hourly RoundingNoah Lorna [facility]02-24-2023 18:00-0500 Hourly RoundingNoah Lorna [address] [place], [place] 6204702-24-2023 18:00-0500 Promise to ReturnNoah Lorna [facility]02-20-2023 13:29-0500Blood Pressure LocationChristopher SON [phone]-Gjkhw[address] [place] [address] 08-02-2022 13:29-0500Diastolic blood jvtnzvat52 mm[Hg]Jaclyn HUY [phone]-Upzun[address] [place] [address] 08-02-2022 13:29-0500Heart rate77 /minChristop HUY [phone]-Cjzfx[address] [place] [address] 08-02-2022 13:29-4653RvW8% (BldA) [Mass fraction]96 %Jaclyn HUY [phone]-Rhbjg[address] [place] [address] 08-02-2022 13:29-0500Systolic blood enpizthg252 mm[Hg]Jaclyn SON [phone]-Gwzcp[address] [place] [address] 06-01-2022 19:20-0500Body vfirsc348.94 Berhane Porter Other [employer] Other 12-20-2022 19:20-0500Body mass index (BMI) [Ratio] 17.57 kg/z8NkcehyyadRadha Porter Other [employer] Other 12-20-2022 19:20-0500Body yikuqkjbxbr01.5 [degF] Radha Lawsonault Other [employer] Other 12-20-2022 19:20-0500Body ixtbsy77.18 kgStara Lawsonault Other [employer] Other 12-20-2022 19:20-0500Diastolic blood ikhzlyks45 mm[Hg] Radha Lawsonault Other [employer] Other 12-20-2022 19:20-0500Respiratory rate16 /minSdejon German Other [employer] Other 12-20-2022 19:20-9425GkL9% (BldA) [Mass fraction]100 % Radha Lawsonault Other [employer] Other 12-20-2022 19:20-0500Systolic blood awxxjobk901 mm[Hg] Radha Lawsonault Other [employer] Other 10-03-2022 12:40-0400Diastolic blood cmctimnj92 mm[Hg] MD Tony Son Work Phone: [facility]10-03-2022 12:40-0400 Heart rate75 /minMD Tony Son Work Phone: [facility]10-03-2022 12:40-0400 SaO2% (BldA) [Mass fraction]99 %MD Tony Son Work Phone: [facility]10-03-2022 12:40-0400 Systolic blood ubpukdgj237 mm[Hg]MD Tony Son Work Phone: [phone]10-03-2022 10:20-0400 Body ueldyq275.94 cmMD Tony Son Work Phone: [phone] [place], [place] 5884410-03-2022 10:20-0400 Body gsycarhjduo74.2 [degF] Tony Son Work Phone: [phone] [place], [place] 5884410-03-2022 10:20-0400 Body unsktb77.18 kgMD Tony Son Work Phone: [phone] [place], [place] 5884410-03-2022 10:20-0400 Respiratory rate16 /minMD Tony Son Work Phone: [phone] [place], [place] 5884408-11-2022 13:22-0400 Blood Pressure LocationChgraceher SON [phone]-Syjvq[address] [place] [address] [place] 08-11-2022 13:22-0400Diastolic blood qvwtudvt55 mm[Hg] Jaclyn HUY [phone]-Ukops[address] [place] [address] [place] 08-11-2022 13:22-0400Heart rate72 /minChristopher HUY [phone]-Xqvkj[address] [place] [address] Medicine [place] 08-11-2022 13:22-0400Respiratory rate16 /minChristopher HUY [phone]-Fpttn[address] [place] [address] Medicine [place] 08-11-2022 13:22-5909FoT8% (BldA) [Mass fraction]99 % Jaclyn HUY [phone]-Eybyv[address] [place] [address] [place] 08-11-2022 13:22-0400Systolic blood gbdbpnon301 mm[Hg] Jaclyn SON [phone]-Wdfcs[address] [place] [address] [place] 07-11-2022 14:45-0400Body cvcozp955.94 cmDatricia Soto Other [employer] Other 07-11-2022 14:45-0400Body mass index (BMI) [Ratio] 17.57 kg/t6Nlehztricia Soto Other [employer] Other 07-11-2022 14:45-0400Body ahvqsk38.18 kgDatricia Soto Other [facility] [employer] Other 07-11-2022 14:45-0400Diastolic blood vvteejso03 mm[Hg] Darryl Soto Other [facility] [employer] Other 07-11-2022 14:45-0400Systolic blood ngaejlzc168 mm[Hg] Darryl Soto Other [employer] Other 07-11-2022 14:22-0400Body weight0 kgMD Tony Son Work Phone: [facility]05-17-2022 12:10-0400 Blood Pressure LocationChristop HUY [phone]-B[facility]eePar[facility] [place] 05-17-2022 12:10-0400Diastolic blood nzmnojgh54 mm[Hg] Jaclyn HUY [phone]-BkgdiSt. [facility] [place] 05-17-2022 12:10-0400Heart rate90 /minChristop HUY [phone]-ItwqaSt. [facility] [place] 05-17-2022 12:10-0400Respiratory rate16 /minChricardo SON [phone]-VckucSelect [facility] [place] 05-17-2022 12:10-0063YsS4% (BldA) [Mass fraction]96 % Jaclyn SON [phone]-ZpjruSelect [facility]ty [facility] [place] 05-17-2022 12:10-0400Systolic blood qrenczkw393 mm[Hg] Jaclyn SON [phone]-PkdzmSelect [facility] [place] 08-04-2021 07:47-0400Body prtfcuqmnrh77.1 [degF] Jaclyn Calabrese MD Work Phone: [facility] Work Phone: 1([phone] 366-717608-04-2021 07:47-0400Diastolic blood oeldhlzp28 mm[Hg] Jaclyn Calabrese MD Work Phone: [facility] [employer] Work Phone: 1([phone]) 311-600208-04-2021 07:47-0400Heart djuq728 /Teodoro Calabrese MD Work Phone: [facility] [employer] Work Phone: [phone] 07:47-0400Respiratory rate20 /min Jaclyn Calabrese MD Work Phone: [facility] [employer] Work Phone: [phone]) 323-152808-04-2021 07:47-1583YpI1% (BldA) [Mass fraction]92 % Jaclyn Calabrese MD Work Phone: [employer] Work Phone: 1([phone]) 294-348708-04-2021 07:47-0400Systolic blood qpuhdzgb296 mm[Hg] Jaclyn Calabrese MD Work Phone: [employer] Work Phone: 1([phone] 309-115508-03-2021 01:00-0400Body mass index (BMI) [Ratio] 21.39 kg/w1Hczhwnraxvz Guanakito MD Work Phone: [facility] [employer] Work Phone: [phone] 01:00-0400Body pgjlob18.35 kgJaclyn Calabrese MD Work Phone: [facility] [employer] Work Phone: [phone] 10:04-0400Body .9 Wili Calabrese MD Work Phone: [facility] [employer] Work Phone: Encounters Encounter DateEncounter TypeCare ProviderFacilityStart: 40-17-2520pxrhgewpaw Jaclyn SONFacility:FM WillardStart: 09-11-2024 End: 65-87-2080vyybphjqxmXemjdivsvkn BROWNFacility:FM WillardStart: 08-02-2023 End: 03-69-8909Nsb Drop offChricardo SON [facility] Start: 08-02-2023 End: 65-46-8101Pjmn adult monitoring check doneChricardo SON [phone]-HhoueSt. [facility] [place] Start: 08-02-2023 End: 89-82-7501Hqqkxna encounter procedureChricardo SON [phone]-RbfbmSt. [facility] [place] Start: 02-25-2023 End: 93-93-4643asxlqqvfhvZukdql Dymond Other [place] [employer] Other Start: 54-64-2703Yvtlqx outpatient visit 15 minutes [facility]deStart: 01-25-2023 End: 32-39-9561Kkcsphy encounter procedureChricardo SON [phone]-[facility] [place] Start: 10-22-2022 End: 24-10-5206nnjuszqdfcXkeinx Angelina Other [place] [employer] Other Start: 95-00-4031Bstccj outpatient visit 15 minutes Shannan AlfaroCHRISTOPHERG Urgent Care ClydeStart: 09-08-2022 End: 44-83-6860iktwwcviqkJX DOCTOR MISCFacility:C4Vzfxm: 08-30-2022 End: 75-43-2473Clp Drop offChristopher SON [facility] Start: 08-30-2022 End: 98-23-0936Cjzakco encounter procedureChristopher SON [phone]-FvqxcSt. [facility] [place] Start: 08-06-2022 End: 92-32-4272Xjjwbhect department patient visitNostevan HigginsLizet Rothman [facility] Start: 08-06-2022 End: 29-47-2382Bnyqhmh encounter procedureChristopher SON [facility] Start: 08-02-2022 End: 87-10-4221Nrmknjl encounter procedureChristopher SON [phone]-LuoghParma [facility] [place] Start: 08-02-2022 End: 66-71-0572Btuy adult monitoring check doneChristopher SON [phone]-ZcniqParma [facility] [place] Start: 07-29-2022 End: 26-46-2201Ytm Drop offChristopher SON [address] [place] [address] Start: 06-01-2022 End: 28-11-4051ucnhptgbweQsgyflxir Breault Other [facility] [employer] Other Start: 65-23-7776Qaagbx outpatient visit 15 minutes Radha BetiG [facility] ClydeStart: 03-19-2022 End: 55-80-8264rqvetkwggwVbhvy Hyjenniffer Other [facility] [employer] Other Start: 20-66-0237Ugmpduhmz encounterDavitimmy BrittanyCHRISTOPHERG GastroenterologyStart: 03-15-2022 End: 17-93-8293oadnwhwfozOhsvhvz J DittyFacility:[facility] Hospitaltart: 03-15-2022 End: 53-63-7843Vgnhdmspp to same day surgery centerMD Tony Son Work Phone: [facility] Ctr-Digestive HealthStart: 03-15-2022 End: 16-68-6486utxobtsfkpYH Chris R Brown Work Phone: [facility] Work Phone: Start: 03-11-2022 End: 12-66-2516ioxjswjrtvEduwtsa J DittyFacility:[facility] Hospitaltart: 03-11-2022 End: 03-09-3834kdoucsrfxdJR Chris R Brown Work Phone: [facility] Work Phone: Start: 03-11-2022 End: 98-28-0766Ccyeubr encounter procedureMD Tony Son Work Phone: [facility] Tzx-Shq-Tjwgkbyz Testing Start: 02-19-2022 End: 25-19-5539xryyshluzyKoboitg J DittyFacility:[facility] Hospitaltart: 02-19-2022 End: 56-62-0693ohpbkaniebVZ Chris R Brown Work Phone: [facility] Work Phone: Start: 02-19-2022 End: 90-71-0671Fsgkrsoy ReferredMD Tony Son Work Phone: [facility] Ctr-Digestive HealthStart: 01-29-2022 End: 69-95-5966Fwn Drop offChricardo HUY [facility] Start: 01-29-2022 End: 17-50-8127Cjzwjiu encounter procedureChricardo SON [phone]-SjxucSelect [facility] [place] Start: 01-21-2022 End: 48-31-2159Ibn Drop offJaclyn SON [facility] Start: 01-21-2022 End: 13-46-5885Ckqrveu encounter procedureJaclyn SON [phone]-IahcnSelect [facility] [place] Start: 01-07-2022 End: 68-34-3453imrximzfoeCwihy R BrownFacility:[facility] Start: 01-07-2022 End: 82-91-5423Bhdrgna encounter Peewee Soto Work Phone: [facility] Jhb-Ftn-Sjgiiadb Testing Start: 12-21-2021 End: 46-53-4258rmnknombngEbhww Hykes Other [place] [employer] Other Start: 35-54-7721Cszhsv outpatient new 30 minutesDatricia SotoFPG GastroenterologyStart: 11-10-2021 End: 12-43-8428olpsoczfndTWTBF AKKINAFacility:I7Xcnic: 10-27-2021 End: 39-77-9848Qzmuhec encounter procedureJaclyn SON [phone]-DnhrtParma Community [facility] Hospital [facility] [place] Start: 09-18-2021 End: 85-73-8834Inmimrt encounter procedureMichael R NILL General Surgery Nill/Said [place] Start: 04-03-2021 End: 08-58-4648cohikykaczCSXZTV C [facility]EPro[facility] HospitalStart: 04-03-2021 End: 63-18-3472Jcyvauddhe hospital visit by physicianCheri [address] RadiologyComment on above:Closed displaced intertrochanteric fracture of right femur with routine healingStart: 04-03-2021 End: 03-38-2762dxwhbgztnqLQBATTYITLR R BROWNMercy Health [facility] HospitalStart: 04-03-2021 End: 17-77-5647Gkywwfvfdh hospital visit by physicianJaclyn Son MD Work Phone: [facility] RadiologyStart: 03-06-2021 End: 40-06-8400smcsizkhgzWNMDERFGTIL R [facility] HospitalStart: 03-06-2021 End: 60-28-0805uhfhewszimLLOPJXHSFKE Ac [facility] HospitalStart: 03-06-2021 End: 85-96-1394Oecwxqrkbn hospital visit by Kedar Son MD Work Phone: [phone] [place] [address] RadiologyStart: 02-20-2021 ambulatoryCHRISTOPHER Ac [facility] HospitalStart: 01-23-2021 End: 83-81-8107rvpoksckxdGXZVDWIOOCN Ac [facility] HospitalStart: 01-23-2021 End: 57-71-1943Sodcszfvox hospital visit by physicianCheri Additional [facility] RadiologyComment on above:Closed nondisplaced intertrochanteric fracture of right femur, initial encounter (HCC)Start: 01-23-2021 End: 77-24-3162trhzilvsjoWPTLFL C [facility] HospitalStart: 01-23-2021 End: 67-05-7239Klbtlyunud hospital visit by physicianJaclyn Son MD Work Phone: [facility] RadiologyStart: 01-08-2021 End: 79-99-4139Ecavnevhnx and management of inpatientSTEVEN C [facility] HospitalStart: 01-08-2021 End: 78-50-3530Wrosqcjasc and management of inpatientChrisradha Calabrese MD Work Phone: mWHZ 2E MED SURG TELEMETRYComment on above:Closed fracture of right hip, initial encounter (HCC) (Primary Dx); Accidental fall, initial encounter; Closed hip fracture, right, initial encounter (HCC); Postoperative anemia; Renal insufficiency Procedures DateProcedureProcedure DetailPerforming ClinicianStart: 98-15-4480GrzovnscxbsTJ Chris Brown Work Phone: Start: 33-59-0931SadgbiqhbysVcviqanjqyh BROWN comment on above:w/[facility]pect[facility]: 09-09-2021 ColonoscopyMichael NILL Start: 98-60-1450Ulsye hip unilateral with pelvis 2-3 Cassie Michelle MD Work Phone: Start: 88-97-9610Wqpcs hip unilateral with pelvis 2-3 Cassie Michelle MD Work Phone: Start: 66-43-5385ZUANK-19, RAPIDAurelio Saldana MD Work Phone: start: 88-64-4966Zjvcg count hemoglobinAurelio Saldana MD Work Phone: start: 84-87-7240Tacxg metabolic panel calcium total Aurelioausten Saldana MD Work Phone: start: 97-64-6121Ojaxx metabolic panel calcium total Aurelio Saldana MD Work Phone: start: 62-96-9588Mmeyz count complete Jordon Lowry MD Work Phone: Start: 50-98-9617QMMOQZY, SEPSISIsaias Lowry MD Work Phone: Start: 06-46-1957RTEEIXZ, BLOOD 1Gdanitza Lowry MD Work Phone: Start: 43-13-4093Ebsggpolxh exam chest single view Isaias Lowry MD Work Phone: Start: 59-69-7969Xuucz count complete auto&auto difrntl wbcIsaias Lowry MD Work Phone: Start: 90-11-1547Ehoaxfza screenChrisradha Calabrese MD Work Phone: Start: 22-35-3052Vindc metabolic panel calcium total Eugene Michelle MD Work Phone: Start: 58-57-9421Qbddduadjh exam abdomen 1 viewIsaias Lowry MD Work Phone: Start: 64-39-5818Ugyskjbifqk of packed red blood cells Isaias Lowry MD Work Phone: Start: 65-17-5698Upuhu count complete auto&auto difrntl Karley Lowry MD Work Phone: Start: 02-92-3025Tfawzribpey of packed red blood cells Isaias Lowry MD Work Phone: Start: 68-36-3787Lgiyn metabolic panel calcium total Eugene Michelle MD Work Phone: Start: 18-01-2594Qabnwsvgrvg up to 1 hour physician/qhp timeScarri Michelle MD Work Phone: Start: 01-09-2021 End: 90-61-8065Bejc fem shft fx w/insj imed implt w/wo screwSteamrik Michelle MD Work Phone: Start: 82-36-5406Keygb typing serologic Serg Lowry MD Work Phone: start: 75-61-6915Fdpdauokaw microscopic onlyIsaias Lowry MD Work Phone: Start: 59-74-6591Hztko dip stick/tablet rgnt auto w/o microscopyIsaias Lowry MD Work Phone: Start: 43-05-2146SDBUT-19, RAPIDIsaias Lowry MD Work Phone: Start: 29-15-4934Otvfp metabolic panel calcium total Isaias Lowry MD Work Phone: Start: 77-52-5062FKRLC METABOLIC PANEL W/ REFLEX TO MG FOR LOW KGohar Alen LIM Work Phone: Start: 84-79-4981Wigna count complete auto&auto difrntl wbcIsaias Lowry MD Work Phone: Start: 83-05-6582Quxbydxoxi exam chest single view Jaclyn Calabrese MD Work Phone: Start: 84-05-1814Yto routine ecg w/least 12 lds i&r onlyChricardo Calabrese MD Work Phone: Start: 27-48-3528EIINX METABOLIC PANEL W/ REFLEX TO MG FOR LOW KChristopher Sin Calabrese MD Work Phone: Start: 60-73-7584Mrqunqfxanc timeChricardo Calabrese MD Work Phone: Start: 65-32-5882Gqlrw hip unilateral with pelvis 2-3 viewsChricardo Calabrese MD Work Phone: CholecystectomyMichael NILL Closed reduction of fracture of right femur and internal fixation using dynamic hip screw plateMichael NILL SARS Antigen (LFIA)DO Darryl Soto Work Phone: SARS Antigen (LFIA)MD Tony Son Work Phone: Total abdominal hysterectomyMichael NILL Plan of Treatment DateCare ActivityDetailAuthorStart: 55-21-4301PckyrfhujMercy Health St. [facility] Hospital Start: 11-42-7273DytymurroisIQ Colonoscopy Diagnostic (Not Applicable)[facility] Hospitaltart: 02-72-4995Lwwlhewuxgwz 65+ years Vaccine (2 of 2 - PPSV23)Pneumococcal 65+ years Vaccine (2 of 2 - PPSV23)[employer] Phone: start: 82-54-3633HKHIG-19 Vaccine (3 - Pfizer booster) COVID-19 Vaccine (3 - Pfizer booster)[employer] Phone: start: 54-81-7877Xucibdhdw vaccinationFlu vaccine (#1) [employer] Phone: start: 01-21-2021 End: 05-71-8767Jkfcq metabolic 2000 panel - Serum or PlasmaBasic Metabolic Panel Lab Routine Renal insufficiency Expected: 01/21/2021, Expires: 01/14/2022[employer] Phone: comment on above:Expected: 01/21/2021, Expires: 01/14/2022tart: 01-21-2021 End: 35-70-3030BSS W Auto Differential panel - BloodCBC Auto Differential Lab Routine Postoperative anemia Expected: 01/21/2021, Expires: 01/14/2022[facility] Phone: comment on above:Expected: 01/21/2021, Expires: 2Start: 01-14-2021 End: 55-13-2187Yhnvddlusg and management of ddawzpecx46/04/2021 Office VisitMROSWELL PARK [facility]BI[facility] EDMOND UNITStart: 69-99-1206Qseids Wellness Visit (AWV)Annual Wellness Visit (AWV)[employer] Phone: start: 42-50-7804Kexsosydv for osteoporosisDEXA (modify frequency per FRAX score)[employer] Phone: start: 99-20-6409Ylnzteppf for osteoporosisDEXA (modify frequency per FRAX score)[employer] Phone: start: 73-71-2026Riztjaqwi for malignant neoplasm of breastBreast cancer screenE [employer] Phone: start: 99-39-6036Whwiotyqd for malignant neoplasm of lungLow dose CT lung screening[employer] Phone: Start: 08-28-0466Edhhdzdv Vaccine (1 of 2)Shingles Vaccine (1 of 2)[employer] Phone: start: 69-03-6319Xnihirspc for malignant neoplasm of breastBreast cancer screenE [employer] Phone: start: 58-91-7955Dpnzquckx for malignant neoplasm of lungLow dose CT lung screening[employer] Phone: start: 26-27-2056Xyffgxop Vaccine (1 of 2)Shingles Vaccine (1 of 2)[employer] Phone: start: 68-90-6020Kxgimznzp for malignant neoplasm of colonColon cancer screen colonoscopy[employer] Phone: start: 82-17-8586Tsnhbpoxp for malignant neoplasm of colonColon cancer screen colonoscopy[employer] Phone: start: 93-90-5812VVjY/Tdap/Td vaccine (1 - Tdap) DTaP/Tdap/Td vaccine (1 - Tdap)[employer] Phone: start: 32-75-6911QXkU/Tdap/Td vaccine (1 - Tdap) DTaP/Tdap/Td vaccine (1 - Tdap)[employer] Phone: start: 59-04-9814Mdezv panelLipid screenE [employer]k Phone: start: 81-69-3260Egqik panelLipid screenShelby [facility] HospitalPen[facility] Technologies Phone: start: 85-77-2278Idtrfexxm C screeningHepatitis C [facility] CenterPen[facility] Phone: start: 06-85-0903Sesdjmhth C screeningHepatitis C [facility] CenterPen[facility] Phone: acapellaAcapella Respiratory Care Routine 0800, 1200, 1600, 2000 (respiratory use only) until discontinued starting 01/10/2021[facility] Phone: comment on above:0800, 1200, 1600, 2000 (respiratory use only) until discontinued starting 01/10/2021apnographyCapnography Respiratory Care Routine Every 4hr until discontinued starting 01/09/2021[facility] Phone: comment on above:Every 4hr until discontinued starting 01/09/2021 End: 60-65-8943BAGDZ-19, RapidCOVID-19, Rapid Microbiology Routine One Time for 1 Occurrences starting 01/14/2021 until 01/14/2021[facility] Phone: comment on above:One Time for 1 Occurrences starting 01/14/2021 until 01/14/2021ulture, Blood 1Culture, Blood 1 Microbiology STAT 01/11/2021 8:49 PM EDSub[facility] [employer] Phone: Nasal Cannula OxygenNasal Cannula Oxygen Respiratory Care Routine Daily until discontinued starting 01/09/2021[facility] Phone: comment on above:Daily until discontinued starting 01/09/2021Oxygen therapy [Minimum Data Set][facility] [employer] Phone: comnfls on above:Daily until discontinued starting 01/08/2021aily until discontinued starting 01/09/2021pirometry panelIncentive spirometry Respiratory Care Routine Every 2hr while awake until discontinued starting 01/09/2021[facility] Phone: comymqn on above:Every 2hr while awake until discontinued starting 01/09/2021 Immunizations Immunization DateImmunizationNotesCare DuehnqxcTnzkbfmk08-99-6964llhczansq virus vaccine, unspecified formulationChristopher [facility] 590-4468Slqcjb-OladhMercy Health [facility] Hospital 42-98-9301ppvhcrj toxoid, reduced diphtheria toxoid, and acellular pertussis vaccine, adsorbedChristopher [facility] 879-7787Bnkthw-JzjyiMercy Health Anderson Hospital 34-86-4557gvtlmm vaccine recombinantChristopher [facility] 193-1159Nsqvrh-Uyfdv[address] [place] [address] 22-14-9530NMEC-CoV-2 (COVID-19) mRNAMUL.ORD!b43263Cywtntmeflx [facility] 251-2960Cvsxlt-Lfwkg[address] [place] [address] 93-58-5709eboyyfycu virus vaccine, unspecified formulationChzia health clinicher [facility] 558-3777Iozclp-Tvhkt[address] [place] [address] 81-69-8560wudolghlxgcw polysaccharide vaccine, 23 valentMichael NILL General [facility] [place] [phone]-00, mRNA, LNP-S, PF, 30 mcg/0.3 mL dose Florentin NILL [facility] Jessi [phone], high dose seasonal, preservative-freeMichael NILL [facility] Jessi [id number]-39, Pfizer, PF, 30mcg/0.3mLCcherise Calabrese MD Work Phone: [facility] [employer] Work Phone: [phone]-87, Pfizer, PF, 30mcg/0.3mLCcherise Calabrese MD Work Phone: [facility] [employer] Work Phone: [phone]) [phone]d, high dose seasonal, preservative-freeChristopher Guanakito LIM Work Phone: [facility] Work Phone: [phone]uhpf conjugate vaccine, 13 valent Jaclyn Calabrese MD Work Phone: [facility] Work Phone: Payers DatePayer CategoryPayerPolicy [id number]-xam [id number] [id number] 1.2.840.910017.1.13.239.2.7.3.742[id number] 2.16.840.1.607056.3.57[id number] 2.16.840.1.050440.3.579.[id number] 2..840.1.798230.3.57[id number] 2.16.840.1.398381.3.57[id number] 2.16.840.1.550787.3.579.2.58973-99-5202Ybplhvl7785444 2.16.840.1.773792.3.579.2.79942-97-8854Qqilpwz5768527 2.16.840.1.204831.3.579.2.09396-00-3503Ttgyvob5524565 2.16.840.1.785109.3.579.[id number] 2.16.840.1.671561.3.579.[id number] 2..840.1.284505.3.579.[id number] 2..840.1.240152.3.579.2.17737-88-6165Dsycwfi80441631 2..840.1.629210.3.579.[id number] 2..840.1.758698.3.579.2.[id number] 2.16.840.1.61419[id number] 2..840.1.879570.3.579.2.531 [id number] 2..840.1.5305[id number] 2.16.840.1.0107[id number] 2..840.1.607617.3.579.2.531 Social History DateTypeDetailFacilityStart: 54-69-6597Ydqrsfq smoking status NHISCurrent every day smokerShelby Memorial HospitalPenstar Technologies Phone: start: 38-19-7373Mzjaivbohf smoked current (pack per day) - ReportedShelby Memorial HospitalPenstar Technologies Phone: start: 44-09-3030Wzvyqot intakeCurrent non-drinker of alcohol (finding)[facility] [employer] Phone: start: 1950 End: 31-90-0573Esv Assigned At BirthNot on fileShelby Memorial HospitalPenstar Technologies Phone: exposure to SARS-CoV-2 (event)Not [facility] Start: 08-18-2021 End: 93-38-3828Ikdolzp smoking statusLight tobacco smoker (finding)[facility] [place] Tobacco smoking statusNeverGeneral Surgery Jessi Comment on above:Smokes 1 pack per day.[facility] Start: 31-83-3838Nfj [facility]igned At [facility]art: 03-15-2022 End: 78-37-7177Gavxgql smoking status NHISSmoker (finding)[facility] Hospitaltart: 43-51-5801Ktzbbuw smoking statusHeavy tobacco smoker (finding)[facility] WillardComment on above: Smokes 1 pack per day. Medical Equipment Procedure CodeEquipment CodeEquipment Original TextEquipment IdentifierDatesNail Im L340mm Lun28rf 130deg Lng R Prox Fem Grn Ti [id number]_mmeHqfbp: 01-09-2021 Screw Bne L42mm Dia5mm Tib Lt Grn Ti St Carol Navneet Full [id number]_dfrDblyk: 79-31-9168Hfzjv Im L85mm Dia10.35mm Prox Fem G Ti Carol Fen Arleen [id number] Start: 01-09-2021 Goals DatePatient GoalDesired Activity/State Functional Status KuwrMdzpvehvaiVvppvtWviqjmqx80-89-2297Rhzgksmasm StatusN/[facility] Rpyayxf61-15-2493Unxefmysqd StatusN/[facility] Yoyojje42-10-0115Kexyxihnos StatusN/[facility] Yritznv00-75-2055Xaigbirjfx StatusN/[facility]02-20-2023Functional StatusN/[facility] Hksxxwl88-38-6750Kujgnvoxsj StatusN/[facility] [place] Clinical Notes 01-09-2021 to 09-11-2024 Note Date & RmrcXyskKpzppsss71-12-0775 NotePatient Education Nephrology Chronic Kidney Disease, Adult [...] these instructions at home: Medicines ??? Take iwyl-lxs-elezfal and prescription medicines only as told by [...] contain nicotine or tobac (more content not included)...[facility]03[facility]29[facility] Pul[facility] Chronic Obstructive Pulmonary Disease [...] these instructions at home: Medicines ??? Take rrkx-pmd-zbuhqib and prescription medicines only as told by [...] 2seconds. ??? Diaphragmatic delroy (more content not included)...[facility] 08-02-2023 Hospital Discharge instructions Patient Education [...] Department of Health and Human Services: www.smokefree.gov [place]: www.freedomfromsmoking.org [place] [employer]: www.heart.org Where to find more [...] provider. Document Revised: 06/01/2022 Document Reviewed: 06/01/2022 GPal Patient Education 2022 Right90. 08/02/2023 12:03:20 Chronic Kidney Disease, Adult Chronic [...] Follow these instructions at home: Medicines Take pecm-ovc-pwzzttf and prescription medicines only as told by [...] is important. Where to find more information [place] [employer] Kidney Patients: www.aakp.org National Kidney Foundation: www.kidney.org [employer]: www.akfinc.org Life Options: www.lifeoptions.org Kidney [...] provider. Document Revised: 09/03/2020 Document Reviewed: 09/03/2020 GPal Patient Education 2022 Right90. 08/02/2023 12:03:17 Chronic Obstructive Pulmonary Disease Chronic [...] Follow these instructions at home: Medicines Take idqe-xme-cjcaocg and prescription medicines only as told by [...] provider. Document Revised: 04/07/2021 Document Reviewed: 04/07/2021 GPal Patient Education 2022 Right90. [facility] [place] 02-17-2024 Hospital Discharge instructions Patient Education 07/30/2023 [...] Follow these instructions at home: Medicines Take ubvi-llx-ttihxdh and prescription medicines only as told by [...] provider. Document Revised: 04/07/2021 Document Reviewed: 04/07/2021 GPal Patient Education 2022 Right90. Follow Up Care 01/25/2023 13:31:33 With:Jaclyn SON MD, FAM Address: When:Within 1 Year(s) [facility] [place] 09-15-2023 Evaluation note* [...] no improvement in 2 to 3 days [employer] Other 08-13-2023 Hospital Discharge instructions Patient Education [...] Pickled foods. Vegetable juice. Boxed mixes or qassd-ao-skm boxed meals and side dishes. Bottled dressings, [...] provider. Document Revised: 09/22/2020 Document Reviewed: 09/22/2020 [employer] Patient Education 2022 Right90. Follow Up Care 07/29/2022 13:52:07 With:Jaclyn SON MD, FAM Address: [address] [place] [phone]- When:[address] [facility] [place] 05-12-2023 Evaluation note* Encounter Date [...] of diseases classified elsewhere (ICD-10 - B96.89) [employer] Other 03-18-2023 Hospital Discharge instructions Patient Education [...] (arrhythmias). Follow these instructions at home: Take tuqv-mjk-tpspdmj and prescription medicines only as told by [...] 05/20/2003 Document Revised: 05/15/2018 Document Reviewed: 05/15/2018 [employer] Patient Education 2019 Right90. [facility] [place] 02-24-2023 Hospital Discharge [...] including vitamins, herbs, eye drops, creams, and bfnj-hny-hjiyvjv medicines. Any medical conditions you have. How [...] IV intake of potassium-rich solutions. Kidney failure. Lyman's disease. Decreased production of the aldosterone hormone [...] of aldosterone hormone by the kidneys (hyperaldosteronism). Republic's syndrome. Kidney disease. Consuming too much licorice. [...] 07/02/2005 Document Revised: 02/15/2018 Document Reviewed: 02/15/2018 [employer] Patient Education 2020 [employer] Inc. Follow Up Care 08/06/2022 18:49:11 With:Jaclyn SON Address: [address] [place] [phone]- Business (1) When:08/11/2022 20:06:02 [facility]02-24-2023 Evaluation + Plan noteExtracted from: Title:ED NoteAuthor:Danie [...] Date:01/25/2023 01:00:00 PM Scheduled Provider:Jaclyn SON MD Location:[facility] [place] Appointment Type: Open Appointment Date:08/02/2023 11:00:00 AM Scheduled Provider: Location:[facility] [place] Appointment Type:FM Medicare Wellness Subsequent [...] require a prescription and some youcan purchase xaqh-qme-qbrbuys. Medicines may have nicotine in them to [...] for support and encouragement. Call telephone quitlines (7-614-OPTS-NOW), reach out to support groups, or work [...] 05/24/2002 Document Revised: 08/17/2019 Document Reviewed: 08/18/2019 GPal Patient Education 2020 Right90. 08/02/2022 13:20:24 Hypertension, Adult Hypertension, Adult High [...] care provider. This is important. Medicines Take aqpt-cxw-ugloylr and prescription medicines only as told by [...] 05/30/2006 Document Revised: 02/07/2019 Document Reviewed: 02/07/2019 GPal Patient Education 2020 Right90. 08/02/2022 13:20:20 Health Maintenance After Age 65 [...] of the medicines you are taking, including sprc-fsw-aqhdcwk medicines. Ask your health care provider about [...] ?You feel dizzy, sleepy, or off-balance. Take xefa-fdf-oqwryfe and prescription medicines only as told by [...] 04/12/2018 Document Revised: 09/20/2019 Document Reviewed: 04/12/2018 [employer] Patient Education 2019 Right90. [facility] [place] 12-20-2022 Evaluation note* Encounter Date Diagnosis Assessment Notes Treatment Notes Treatment Clinical Notes May, Tooth infection (ICD-10 - K04.7) Take medications as directed.Highly encourage patient to contact dentist SERGIO for further treatmentof infection. Do not take OTC medications like ibuprofen with prescriptions [employer] Other 10-03-2022 Procedure [facility]08-10-2022 Hospital Discharge instructions Patient Education 01/20/2022 20:22:08 Hyponatremia, Vukj-lu-Ojbb Hyponatremia Hyponatremia is when the amount of [...] symptoms. Follow these instructions at home: Take bzoy-eza-txwietk and prescription medicines only as told by [...] 02/09/2012 Document Revised: 08/16/2019 Document Reviewed: 05/03/2019 GPal Patient Education 2020 GPal Inc. Follow Up Care 07/23/2021 13:45:50 With:HUY LIM, LANCE Tadeo Address: [address] [place] [phone]- When:6 months [facility] [place] 07-11-2022 Evaluation note* Encounter Date Diagnosis Assessment Notes Treatment Notes Treatment Clinical Notes Dec, Polyp of ascending colon, unspec ified type (ICD-10 - K63.5) [employer] Other 05-16-2022 Hospital Discharge instructions Patient Education [...] water added (diluted fruit juice). Eat bland, ftdp-nv-koizlo foods in small amounts as you are able. These foods include bananas, applesauce, rice, lean meats, toast, and crackers. Avoid fluids that contain a lot of sugar or caffeine, such as energy drinks, sports drinks, and soda. Avoid alcohol. Avoid spicy or fatty foods. General instructions Take yzft-djn-vybqsde and prescription medicines only as told by your health care provider. Drink enough fluid to keep your urine pale yellow. Wash your hands often using soap and water. If soap and water are not available, use hand cottrell blower. Make sure that all people in your [...] eating and drinking to prevent dehydration. Take dfyp-pkm-uwxvwjv and prescription medicines only as told by [...] MD, FAM Address: When: only if needed [facility] [place] 08-04-2021 History of Present illness Narrative* Alicia Sharma RN - 01/14/2021 9:59 AM EDT Report called to KIM Wilhelm at [facility] at this time. * Phuong Still LSW - 01/14/2021 8:37 AM EDT Pt discharged to [facility] today. Arranged transport for [employer] at 10:05 am. SW called and notified vimal Morgan of arrangements and she is in agreement. Nursing notified. SHANEL calledto [facility] and left a message for Olya in admissions regarding arrangements. Faxed discharge summary and HENS to Olya. No further needs identified. Phuong PATRICK COTTON WEIGHER 01/14/2021 * Alicia Sharma RN - 01/14/2021 7:58 AM EDT Offered to get pt up to chair for breakfast; pt declines and states she canceled her breakfast trayas she doesn't eat breakfast . Pt educated on discharge time of 1000 with [facility] to go to [facility]. Pt concerned about daughter, Cathy, being made [...] initial encounter ([facility]) Aurelio Saldana MD, MD [facility] Hospitalist * Shannan Musa LSW - 01/13/2021 4:14 PM EDT Received word from [facility], Olya, carmel p.m. re: Patient pre cert being approved. Olya states that Patient can be admitted to [facility] as soon as tomorrow if she is medically stable for discharge. HENS completed per this policy writer sales today. JOEY Pendleton 01/13/2021 * Evette Mane, [...] LSW - 01/12/2021 3:14 PM EDT [facility] calls back and states that they will accept pt. [facility] will start pre cert with insurance this afternoon. Phuong KEENANW 01/12/2021 * Kala Cordero OT - 01/12/2021 2:10 PM EDT [facility] Occupational Therapy Evaluation Date: 01/12/2021 [...] Ambulation Assistance: Independent Transfer Assistance: Independent Active All Source Intelligence Analyst: Yes IADL Comments: Active with daily household [...] Time Frame for Short term goals: STG=LTG senior care goals Time Frame for exterminator goals : 5 days (01-16-2021) senior care goal 1: Patient to complete UB/LB bathing with set up exterminator goal 2: Patient to complete UB/LB dressing with set up exterminator goal 3: Patient to complete toileting task with supervision only. exterminator goal 4: Patient to tolerate static standing [...] and they have decided to go with [facility] in [place] as her dtr works there as well. SW made referral to [facility] and faxed over information. Phuong Laureano ANIMAL CONTROL LICENSING WORKER COTTON WEIGHER 01/12/2021 * Phuong Still LSW - 01/12/2021 1:45 PM EDT SW met with pt and daughters early this morning regarding placement and decisions about where they would like pt to go. They decided on [facility] as first choice and [facility] secondary. SW called to [facility] and after many messages and phone contacts, the TCU at [facility] is no longer operating. Spoke with acute rehab contestant coordinator at [facility] and she is willing to look at pt information. Although reports that the insurance pt carries will often not approve for their level of care. SW also spoke with [facility] this morning and they are also in networkand willing to look at pt information. SW called back to Cathy, vimal, and explained that first choice was no longer available and discussed the differences in acute rehab vs longterm facility. Cathy wishes to talk with pt and will call SW back with an answer. SW will await return call. Phuong Laureano ANIMAL CONTROL LICENSING WORKER COTTON WEIGHER 01/12/2021 * Rosemary Fuller S - 01/12/2021 11:08 AM EDT [facility] Date: 01/12/2021 Physical Therapy Daily [...] Good sitting balance to assist with self-care Locomotive Firer Goals Time Frame for senior care goals : 10 days - expires 01/19/21 senior care goal 1: Transfer supine to sit with CG/min assist exterminator goal 2: Transfer bed to chair or commode with wh walker and min assist exterminator goal 3: Ambulate with wh walker 20-25 ft to bathroom for self-care [facility] SALES PROMOTER Date: 01/12/2021 * Lien Gerber RN - [...] loss Fluid Accumulation: No significant fluid accumulation Lead Man Over All Dies In Pattern Shop Strength: Not Performed Estimated Daily Nutrient Needs: Energy (kcal): 4872-2983 (27-32); Weight Used for Energy Requirements: Current [...] Usual Body Weight: 100 lb (45.4 kg) Delta Body Weight: 105 lbs; % Delta Body Weight 99.5 % BMI: 19.8 Adjusted [...] Discharge Planning: Continue Oral Nutrition Supplement Contact: [phone] * Aurelio Saldana MD - 01/12/2021 6:23 [...] on food choices due to ongoing nausea/emesis. Kaufman option choices given and encouraged. Patient advised [...] Sonia Watson - 01/11/2021 9:38 AM EDT [facility] Date: 01/11/2021 Physical Therapy Daily [...] Good sitting balance to assist with self-care Locomotive Firer Goals Time Frame for senior care goals : 10 days - expires 01/19/21 exterminator goal 1: Transfer supine to sit with CG/min assist exterminator goal 2: Transfer bed to chair or commode with wh walker and min assist exterminator goal 3: Ambulate with wh walker 20-25 ft to bathroom for self-care tasks Sonia Watson SALES PROMOTER Date: 01/11/2021 * Trisha Yu APRN - [...] reactive. Repeat CBCtomorrow. Pain is managed with Wheaton and nausea is better after receiving Reglan. [...] 01/[address] Michelle. Pain managed with Wheaton , IV morphine. Consult PT and OT. [...] Also started on Protonix. Percocet changed to Wheaton and she seems to be tolerating better 7. Tobacco abuse -declined nicotine patch 8. Mild leukocytosis -possibly reactive. She has no fever. Patient has no complaints. We will follow-up with CBC tomorrow Patient continues to require inpatient admission related to need for IV fluids, monitoring labs, clinical condition Rounding Hospitalist * Maribel Estrada RN - 01/10/2021 8:48 PM EDT Food Dehydrator Operator calls and gives Dr. Lowry update on [...] med order changed per Dr Lowry. Both INSOLE TAPER and physician conferred with regarding second unit of blood. Trisha informs this policy writer sales she will be in to round, will confirm need for second unit at that time. CBC drawn post first unit HgB 8.3. * Trisha Yu, JIG AND FIXTURE MAKER - GENERAL II FARMWORKER - 01/10/2021 11:32 AM EDT Department of Orthopedic Surgery Trisha Yu INSOLE TAPER-C Progress Note SUBJECTIVE Patient is post-op day [...] and will switch oral pain medication to Wheaton to see if patient tolerates better. Zofran [...] to Percocet and will switch it to Wheaton. Consult PT and OT 2. Acute anemia [...] and GERD -we will change Percocet to Wheaton, continue on IV fluids and as needed Zofran Start on Protonix 7. Tobacco abuse -declined nicotine patch Patient continues to require inpatient admission related to need for IV fluids, pain management, monitoring electrolytes, nausea and vomiting management Rounding Hospitalist * Cristela Currie, PT - 01/10/2021 10:19 AM EDT [facility] Physical Therapy Evaluation Date: 01/10/2021 [...] Good sitting balance to assist with self-care exterminator goals Time Frame for senior care goals : 10 days - expires 01/19/21 exterminator goal 1: Transfer supine to sit with CG/min assist exterminator goal 2: Transfer bed to chair or commode with wh walker and min assist exterminator goal 3: Ambulate with wh walker 20-25 [...] pt this morning to complete assessment with estimating manager during quality rounds. Pt is alert and oriented and cooperative with assessment. Pt is a 70 year old female admitted for comminuted intertrochanteric fracture of the proximal right femur. Pt is scheduled for surgery this afternoon. Pt lives alone in her apartment in [place]. Pt was not using any [facility] or community services prior to admission. Pt [...] based on facilities that accept her insurance. [place] of choice list provided as well. Pt chooses [facility]. SW made referral to [employer] and they will review and obtain insurance [...] surgical repair of hip. Denies weight losses sloop captain or PO problems. Eats 2 meals [...] loss Fluid Accumulation: No significant fluid accumulation Lead Man Over All Dies In Pattern Shop Strength: Not Performed Estimated Daily Nutrient Needs: Energy (kcal): 7270-0481 (27-32); Weight Used for Energy Requirements: Current [...] Usual Body Weight: 100 lb (45.4 kg) Delta Body Weight: 105 lbs; % Delta Body Weight 99.5 % BMI: 19.8 Adjusted [...] Discharge Planning: Too soon to determine Contact: [phone] * Alicia Sharma RN - 01/09/2021 9:46 [...] a living will or durable power of deputy attorney general for healthcare? denies If yes do we have a copy on file? n/a Do you or your family have any questions or concerns we haven't already discussed? Denies Pt lives alone and is independent with ADL's. Pt given list of SNF and informed of local facilitiesthat take her insurance. Pt requests to contact [facility] in [place] in regards to discharge plan, she states her daughter lives outside of [place]. States PCP is Dr Son. Phuong COOK and policy writer sales present for rounding. * Maribel Estrada RN [...] calculated (Unknown ideal weight.). Estimated CrCl using Delta Body Weight: 24.01 mL/min (based on IBW [...] reach. Will continueto monitor. documented in this encounterE Ink Phone: 1(758) 962-584307-30-2021 Hospital Discharge instructions* Discharge Instr - HYUN* [...] Emergency Contact: Cathy Bergman Mobile Relation: Child Forensic Social Worker needed? No Secondary Emergency Contact: Isabella Perry [facility] Relation: Child Forensic Social Worker needed? No Past Surgical History: No past surgical history on file. Immunization History: There is no immunization history on file for this patient. Active Problems: Patient Active Problem List Diagnosis Code Closed fracture of right hip with routine healing S72.001D Closed hip fracture, right, initial encounter ([facility]) S72.001A Isolation/Infection: Isolation No Isolation Patient Infection [...] Assisted Dressing Assisted Toileting Assisted Feeding Assisted Flight Communications Operator Assisted Med Delivery whole Wound Care Documentation [...] 11 Discharging to Facility/ Agency Name: [facility] [address] [place], [place] [address] Dialysis Facility (if applicable) Name: Address: Dialysis Schedule: Phone: Fax: Cash Register Balancer/Chief Financial Officer signature: at 4:20 PM EDT PHYSICIAN SECTION Prognosis: {Prognosis:1371168110} Condition at Discharge: { Patient Condition:009788987} Rehab Potential (if transferring to Rehab): {Prognosis:9225369304} Recommended Labs or Other Treatments After Discharge: Physician Certification: I certify the above information and transfer of Lencho Candelario is necessary for the continuing treatment of the diagnosis listed and that she requires {Admit to Appropriate Level of Care:34236} for {GREATER/LESS:931538319} 30 days. Update Admission H&P: {CHP DME Changes in HandP:721261502} PHYSICIAN SIGNATURE: {Esignature:005192958} * Additional Instructions* Aurelio Saldana MD - 01/14/2021 Discharge Instructions Admission Date: 01/08/2021 Discharge Date: 01/14/21 Disposition: Home Activity: As tolerated Diet: General diet with nutritional supplements 3 times a day. Discharge Medication: Lencho Candelario Home Medication Instructions KAMRAN:[id number] Printed on:01/14/21611 Medication Information aluminum & magnesium [...] daily Discharge Instructions: Continue previous home medication. Wheaton 5/325: 1 tablet every 6 hours as [...] physician (Jaclyn Son MD) after discharge from [facility]. [facility] [employer] Work Phone: evaluation + Plan note Future Appointments Appointment Date:01/21/2022 01:20:00 PM Scheduled Provider:Jaclyn SON MD Location:[facility] [place] Appointment Type: Open General Surgery [place] Evaluation + Plan note Future Appointments Appointment Date:07/29/2022 01:20:00 PM Scheduled Provider:Jaclyn SON MD Location:[facility] [place] Appointment Type: Open Future Scheduled Tests Laboratory* Potassium Level 01/21/22 [facility] [place] Evaluation + Plan note Future Appointments Appointment Date:07/29/2022 01:20:00 PM Scheduled Provider:Jaclyn SON MD Location:[facility] [place] Appointment Type:FM Open [facility] [place] Evaluation + Plan note Future Appointments Appointment Date:08/02/2022 01:00:00 PM Scheduled Provider: Location:[facility] [place] Appointment Type:FM Medicare Wellness Initial Appointment Date:01/25/2023 01:00:00 PM Scheduled Provider:Jaclyn SON MD Location:[facility] [place] Appointment Type:FM Open Future Scheduled Tests Laboratory* Pot[facility] Appointment Date:01/25/2023 01:00:00 PM Scheduled Provider:Jaclyn SON MD Location:[facility] [place] Appointment Type:FM Open Appointment Date:08/02/2023 11:00:00 AM Scheduled [facility] Medicare Wellness Subsequent Future Scheduled Tests Laboratory* Potassium Level 07/29/22 [facility] [place] Evaluation + Plan note Future Appointments Appointment Date:01/25/2023 01:00:00 PM Scheduled Provider:Jaclyn SON MD Location:[facility] [place] Appointment Type:FM Open Appointment Date:08/02/2023 11:00:00 AM Scheduled [facility]: [facility] Medicare Wellness [facility] Future Appointments Appointment Date:08/02/2023 10:40:00 AM Scheduled Provider:Jaclyn SON MD Location:[facility] [place] Appointment Type:FM Open Appointment Date:08/02/2023 11:00:00 AM Scheduled Provider: Location:[facility] [place] Appointment Type:FM Medicare Wellness Subsequent [facility] [place] Evaluation + Plan note Future Appointments Appointment Date:08/03/2024 11:00:00 AM Scheduled Provider: Location:[facility] [place] Appointment Type:FM Medicare Wellness Subsequent Appointment Date:08/03/2024 11:40:00 AM Scheduled Provider:Jaclyn SON MD Location:[facility] [place] Appointment Type:FM Open [facility] [place] Evaluation note* Diagnosis Closed fracture of right hip, initial encounter ([facility]) Accidental fall, initial encounter Postoperative anemia Anemia, unspecified Renal insufficiency Unspecified disorder of kidney and ureter documented in this encounter [employer] Phone: evaluation note* Diagnosis Closed nondisplaced intertrochanteric fracture of right femur, initial encounter ([facility]) documented in this encounter [employer] Work Phone: evaluation note* Diagnosis Closed displaced intertrochanteric fracture of right femur with routine healing Aftercare for healing traumatic fracture of hip documented in this encounter [employer] Work Phone: evalfeeztg noteNo assessment information available [facility] Work Phone: Evaluation noteNo InformationNort [employer] Other History and physical note Author Chance Beavers [facility] March 15, 2022 11:39amNote Date/TimeOct2021 11:39am[place] [address] Gastroenterology H&P Signed Patient: Lencho Candelario MR#: [id number] : 1950 Acct:[id number] Age/Sex: 71 / F Adm Date: 2 Loc: Room: Type: [facility] Attending Dr: Chance Beavers MD Copies [...] <Electronically signed by Chance Beavers MD> 03/15/[address] [facility] Work Phone: Hisggqd general Narrative - Reported* Type Description Date Medical History GERD Medical Historycolon polypMedical HistoryCOPDSurgical Historyhysterectomy Surgical HistorycholecystectomySurgical Historyhip surgery (broken) [employer] Other Hismzoq general Narrative - Reported* Type Description Date Medical History GERD Medical Historycolon polypMedical HistoryCOPDMedical HistoryKIDNEY DISEASE STAGE 3Surgical HistoryhysterectomySurgical HistorycholecystectomySurgical Historyhip surgery (broken)Hospitalization HistorySEE ABOVE [employer] Other Hospital course Narrative No data available for this section General Surgery [facility] Discharge instructions No data available for this section General Surgery [facility] Discharge instructions Additional Instructions DISCHARGE INSTRUCTIONS [...] NOT operate machinery such as power tools, [employer] mowers, Spotlight blowers, sewing machines, etc. for 24 hours. [...] Follow up with PCP. - Office number [phone].[facility] Work Phone: Progress note No data available for this section [facility] [place] Reason for visit NarrativePT HERE AT REQUEST OF DR WILLIS FOR EVALUATION OF POLYP THAT COULDN'T BE REMOVED -DAUGHTER ARPITA WANTED CONSULT FIRST., REFERRAL NOTE [facility] [employer] Other Advance Directives No Advanced Directives Records [...] initial encounter (FORMERLY [facility]) Isaias Lowry MD [address] [place], [place] [id number] [facility] Ordered Prescriptions (unrec ognized section and [...] initial encounter (FORMERLY [facility])Take 1 tablet by mouth every 6 hours [...] EVERY 4 HOURS PRN, Wheezing, Starting on [facility] 01/10/21 at 2100 * 2003 (Given - [...] and content) DATE CREATED AUTHOR 04/05/2021 [facility] DATE CREATED AUTHOR AUTHOR'S ORGANIZ ATION 04/26/[address] [facility] DATE CREATED AUTHOR AUTHOR'S ORGANIZ ATION 09/12/2022 [facility] DATE CREATED AUTHOR AUTHOR'S ORGANIZ ATION 04/04/2025 [facility] Care Team (unrecognized sect ion and [...] BE BASED ON THE PRIMARY CLINICAL RECORDS. [employer]. provides no warranty or guarantee of the accuracy or completeness of information in this document.
== END 2025-06-11 13:23 | disposition home or self-care (01) ==
LOC: LAB 13:22
PROVIDERS: PCP Family Medicine
DX: I12.9 Hypertensive chronic kidney disease with stage 1 through stage 4 chronic kidney disease, or unspecified chronic kidney disease (principal); N18.4 Chronic kidney disease, stage 4 (severe)
CPT/HCPCS: 36415; 80069; 82570; 83735; 84156; 85014; 85018